=== PATIENT | male | born 1965 | race Caucasian/White ===

== ENCOUNTER → 2018-10-25 09:20 | Outpatient (CLI) | payer SELFPAY ==
[2018-10-25 10:53] LABS: Anion Gap 7 (5-15); BUN 15 mg/dL (7-18); BUN/Creat Ratio 13.5 RATIO (10-20); Calcium,Total 8.6 mg/dL (8.5-10.1); Chloride 106 mmol/L (98-107); Cholesterol 190 mg/dL (200); Creatinine, Serum 1.11 mg/dL (0.70-1.30); EST Glomerular Filtration Rate 74 mL/min (>60); Est Glom Filt Rate - Afr Amer 90 mL/min (>60); Glucose 113 mg/dL (74-106); High Density Lipoprotein 27 mg/dL; Potassium 4.2 mmol/L (3.5-5.1); Sodium Level 138 mmol/L (136-145); Triglycerides 301 mg/dL; Very Low Density Lipoprotein 60 mg/dL (5-40)
[2018-10-25 11:17] LABS: Hemoglobin A1c 6.1 % (4.2-6.3)
== END ==
PROVIDERS: Family Provider Family Medicine; PCP Family Medicine; Visit Provider Family Medicine
DX: Z12.5 Encounter for screening for malignant neoplasm of prostate (principal); E11.9 Type 2 diabetes mellitus without complications
CPT/HCPCS: 36415; 80048; 80061; 83036; 84153; G0103

== ENCOUNTER → 2021-01-08 | Outpatient (CLI) | payer SELFPAY ==
[2021-01-08 09:00] VITALS: BMI 37.1
== END | disposition home or self-care (01) ==
LOC: LABSPEC 10:04
PROVIDERS: PCP Family Medicine; Visit Provider Physician Assistant
DX: L02.11 Cutaneous abscess of neck (principal)
CPT/HCPCS: 87070; 87075; 87077; 87186; 87205

== ENCOUNTER → 2022-12-03 | Outpatient (CLI) | payer BC, MEDICAID, SELFPAY ==
[2022-12-03 13:04] LABS: Hemoglobin A1c 5.6 % (3.8-5.6)
[2022-12-03 13:09] LABS: AST(SGOT) 13 U/L (15-37); Alanine Aminotransfer ALT/SGPT 30 U/L (16-61); Albumin, Serum 3.8 g/dL (3.2-5.0); Alkaline Phosphatase 96 U/L (45-117); Anion Gap 6 (5-15); BUN 17 mg/dL (7-18); Chloride 105 mmol/L (98-107); Cholesterol 200 mg/dL (200); Creatinine, Serum 0.95 mg/dL (0.70-1.30); EST Glomerular Filtration Rate 88 mL/min (>60); Est Glom Filt Rate - Afr Amer 106 mL/min (>60); Globulin 3.7 g/dL (2.2-4.2); Glucose 109 mg/dL (74-106); High Density Lipoprotein 27 mg/dL; PSA,Total - Annual Screen 0.87 ng/mL (0.00-4.00); Potassium 4.5 mmol/L (3.5-5.1); Protein, Total 7.5 g/dL (6.4-8.2); Sodium Level 137 mmol/L (136-145); Thyroid Stim Hormone (TSH) 1.99 uIU/mL (0.358-3.74); Triglycerides 255 mg/dL; Very Low Density Lipoprotein 51 mg/dL (5-40)
[2022-12-03 13:22] LABS: Microalbumin,Random Urine 13.8 mg/L (NO RANGE EST.)
== END | disposition home or self-care (01) ==
LOC: MFPLAB 09:54
PROVIDERS: PCP Family Medicine; Visit Provider Family Medicine
DX: E11.9 Type 2 diabetes mellitus without complications (principal); E78.5 Hyperlipidemia, unspecified; Z12.5 Encounter for screening for malignant neoplasm of prostate
CPT/HCPCS: 36415; 80053; 80061; 82043; 83036; 84153; 84443; G0103

== ENCOUNTER 2024-12-06 16:19 | Outpatient (CLI) | payer OTHER, SELFPAY ==
[2024-12-06 18:13] LABS: Absolute Lymphocyte Count 1.64 X10^3/uL (0.83-4.51); Absolute Neutrophil Count 3.5 X10^3/uL (2.0-7.7); Basophil# 0.04 X10^3/uL; Basophil% 0.7 % (0-1); Eosinophil# 0.14 X10^3/uL; Eosinophils% 2.4 % (0-5); Hematocrit 35.5 % (40-54); Hemoglobin 12.2 g/dL (13.0-16.5); Lymphocyte # 1.64 X10^3/ul (0.83-4.51); Lymphocyte % 28.2 % (19-41); Mean Corp Hgb Conc 34.4 g/dL (32-36); Mean Corpuscular Volume 87.2 fL (80-94); Monocyte# 0.47 X10^3/uL; Monocyte% 8.1 % (0-10); NRBC Flagged by Analyzer 0 % (0-5); Neutrophil % 60.3 % (47-70); Platelet Count 221 K/mm3 (150-450); RBC Distribution Width CV 13.7 % (11.6-14.6); RBC Distribution Width SD 43.5 fl (35.1-43.9); Red Blood Count 4.07 M/mm3 (4.6-6.2); White Blood Count 5.8 K/mm3 (4.4-11.0)
[2024-12-06 18:29] LABS: Hemoglobin A1c 5.8 % (<=5.6)
[2024-12-06 18:45] LABS: ALB/GLOB Ratio 1.6 RATIO (0.9-2.4); AST(SGOT) 17 U/L (<=37); Alanine Aminotransfer ALT/SGPT 14 U/L (<=46); Albumin, Serum 4.1 g/dL (3.5-5.0); Alkaline Phosphatase 95 U/L (40-129); Anion Gap 11 (5-15); BUN 26 mg/dL (4-19); Calcium,Total 8.7 mg/dL (7.6-11.0); Carbon Dioxide 17.6 mmol/L (21.0-32.0); Chloride 112 mmol/L (98-108); Cholesterol 172 mg/dL (<=200); Creatinine, Serum 1.76 mg/dL (0.70-1.20); EST Glomerular Filtration Rate 45 (>60); Globulin 2.6 g/dL (2.2-4.2); Glucose 94 mg/dL (70-99); High Density Lipoprotein 24 mg/dL; Low Density Lipoprotein Calc. 104 mg/dL; Potassium 3.7 mmol/L (3.3-5.1); Protein, Total 6.6 g/dL (5.9-8.4); Sodium Level 141 mmol/L (133-145); Total Bilirubin < 0.15 mg/dL (0.00-1.30); Triglycerides 220 mg/dL; Very Low Density Lipoprotein 44 mg/dL (5-40); Vitamin D,25 Hydroxy 12.5 ng/mL (30-100); cholesterol:hdl ratio screen 7.26
== END 2024-12-06 23:59 | disposition home or self-care (01) ==
LOC: MTLAB 16:22
PROVIDERS: PCP Family Medicine; Referring Provider Family Medicine; Visit Provider Family Medicine
DX: Z00.00 Encounter for general adult medical examination without abnormal findings (principal); E11.9 Type 2 diabetes mellitus without complications; Z12.5 Encounter for screening for malignant neoplasm of prostate; E78.5 Hyperlipidemia, unspecified; R53.83 Other fatigue
CPT/HCPCS: 36415; 80053; 80061; 82306; 83036; 84153; 84443; 85025; G0103

== ENCOUNTER → 2025-01-23 | Outpatient (CLI) | payer OTHER, SELFPAY ==
--- NOTE | 2025-01-23 09:27 | RAD_ITS ---
PROCEDURE: ELBOW MIN 3 VIEWS 01/23/2025 REASON FOR EXAM: SWELLING WITH CELLULITIS TECHNIQUE: ELBOW MIN 4 VIEWS COMPARISON: None FINDINGS: Bones: No fracture or suspicious osseous lesion Joints: Normal alignment. Soft tissues: Diffuse nonspecific soft tissue swelling Other: RAD/Elbow min 3 Views IMPRESSION: No fracture or suspicious osseous lesion Joint spaces well-preserved Nonspecific soft tissue swelling Reading Location: [id number]
--- OUTSIDE RECORDS SUMMARY | 2025-01-23 21:23 | XMS RPT_ITS | CCD ---
Author Organization [facility] Care Team Providers Care Siebel Consultant Name Role Phone Dr. Adal eZe Primary Care Provider Dr. Adal Zee Referring Provider Dr. Wilber Patrick Attending Provider Monroe Rothman MD Primary Care Provider Monroe Rothman MD Attending Provider [phone] Monroe Rothman MD Referring Provider Monroe Rothman Referring Unavailable Monroe Rothman Primary Care Unavailable Monroe Rothman Attending Unavailable Monroe Rothman Referring Unavailable Monreo Rothman Primary Care Unavailable Monroe Rothman Attending Unavailable Allergies Allergy Classification Reported Allergen(s) Allergy Type Date of Onset Reaction(s) Facility (2 sources) Citalopram Drug Allergy 3 Other [facility] Comment on above: headaches (2 sources) Sulfonamides (Antibiotic) Allergy to substance 3 unknown [facility] (1 source) Citalopram Drug Allergy 3 [facility] (1 source) Sulfonamides (Antibiotic) Drug allergy (disorder) 3 [facility] Medications Current Medications Medication Drug Class(es) Dates Sig (Normalized) Sig (Original) [id number] 200 actuat albuterol 0.09 mg/actuat metered dose inhaler (2 sources) beta2-Adrenergic Agonist Start: 01-08-2021 Albuterol Sulfate 90 mcg/actuation HFA aerosol inhaler Active 2 NMA INHALATION EVERY 6 HOURS as needed January 08, 2021 12:00am Start: 01-08-2021 take 1 puff(s) by in halation every six hours Albuterol Sulfate Active 2 PUFF INHALATION EVERY 6 HOURS January 08, 2021 12:00am metFORMIN hydrochloride 500 mg oral tablet (2 sources) Biguanide Start: 01-08-2021 take 1 tablet by mouth twice daily Metformin 500 mg tablet Active 500 mg PO TWICE A DAY January 08, 2021 12:00am sildenafil 25 mg oral tablet (2 sources) Phosphodiesterase 5 Inhibitor Start: 11-17-2022 Sildenafil 25 mg tablet Active 25 mg PO DAILY as needed November 17, 2022 12:00am administer 30 minutes to 4 hours before activity Completed/Discontinued Medications Medication Drug Class(es) Dates Sig (Normalized) Sig (Original) doxycycline monohydrate 100 mg oral capsule (2 sources) Tetracycline-cla ss Drug Start: 01-08-2021 End: 01-22-2021 take 1 capsule by mouth twice daily Doxycycline Monohydrate 100 mg capsule Discontinued 100 mg PO TWICE A DAY January 08, 2021 12:00am January 21, 2021 12:00am January 22, 2021 12:01am Problems Problem Classification Problem Date Documented Da te Episodic/Chronic Other non-traumatic joint disorders (1 source) Effusion, right elbow; Translations: [Effusion, right elbow] Onset: 01-23-2025 Episodic Other skin disorders (2 sources) Epidermoid cyst of skin of neck; Translations: [Epidermal cyst] 11-17-2022 Episodic Other skin disorders (2 sources) Epidermal cyst; Translations: [Sebaceous cyst] 11-17-2022 Episodic Skin and subcutaneous tissue infections (2 sources) Abscess of neck; Translations: [Cutaneous abscess of neck] 01-08-2021 Episodic Spondylosis; intervertebral disc disorders; other back problems (4 sources) Neck pain; Translations: [Cervicalgia] 11-17-2022 Episodic Results Test Name Value Interpretation Reference Range Facility Elbow min 3 Viewson 01-24-20 Elbow min 3 Views [facility] Imaging Services [address] [place] [address] Elbow min 3 Views MR#: [id number] Acct: [id number] Name: NOAH DOMINGUEZ Rep #: [id number] : 1965 M 59 From: Brady Lipscomb MD PCP: Dr. Monroe Rothman MD Status: REG CLI Study: Elbow min 3 Views Date of Exam: 01/23/25 Exam# [id number] Ordering Dr: Monroe Rothman MD PROCEDURE: ELBOW MIN 3 VIEWS 01/23/2025 REASON FOR EXAM: SWELLING WITH CELLULITIS TECHNIQUE: ELBOW MIN 4 VIEWS COMPARISON: None FINDINGS: Bones: No fracture or suspicious osseous lesion Joints: Normal alignment. Soft tissues: Diffuse nonspecific soft tissue swelling Other: RAD/Elbow min 3 Views IMPRESSION: No fracture or suspicious osseous lesion Joint spaces well-preserved Nonspecific soft tissue swelling Reading Location: [id number] CC: Dr. Monroe Rothman MD Grey Tender: Signed Normal [facility] Absolute lymphocyte countOrd ered By: Monroe Rothman on 12-06-2024 Lymphocytes Auto (Unsp spec) [#/Vol] 1.64 10*3/uL 0.83-4.51 [facility] Absolute neutrophil countOrd ered By: Monroe Rothman on 12-06-2024 Neutrophils (Bld) [#/Vol] 3.5 10*3/uL 2.0-7.7 [facility] Anion gap in Serum or Plasma Ordered By: Monroe oRthman on 12-06-2024 Anion gap [Moles/Vol] 11 mmol/L 5-15 [facility] Automated lymphocyte count a s percentage of total leukocytesOrdered By: Monroe Rothman on 12-06-2024 Lymphocytes/100 WBC Auto (Unsp spec) 28.2 % 19-41 [facility] BUN/creatinine ratioOrdered By: Monroe Rothman on 12-06-2024 Urea nitrogen/Creatinine [Mass ratio] 15.0 mg/mg 10-20 [facility] Basophil percentageOrdered B y: Monroe Rothman on 12-06-2024 Basophils/100 WBC (Bld) 0.7 % 0-1 [facility] Bilirubin, totalOrdered By: Monroe Rothman on 12-06-2024 Bilirubin [Mass/Vol] mg/dL 0.00-1.30 [facility] CBC W/Diff, Automatedon 11-24 Absolute Lymph 1.64 X10 3/uL Normal 0.83-4.51 [facility] Comment on above: Order Comment: Order Date: 12/06/24 Order Info: 0184-1 - CBCD Performed By: #### L 100.0100, L501.9910, L500.4050, L501.9520, L501.9985, L500.4100 #### [facility] [address] [place], [address] Absolute Neut 3.5 X10 3/uL Normal 2.0-7.7 [facility] Comment on above: Order Comment: Order Date: 12/06/24 Order Info: 0184- - CBCD Performed By: #### L 100.0100, L501.9910, L500.4050, L501.9520, L501.9985, L500.4100 #### [facility] [address] [place], [address] Basophils/100 WBC (Bld) 0.7 % Normal 0-1 [facility] Comment on above: Order Comment: Order Date: 12/06/24 Order Info: 0184- - CBCD Performed By: #### L 100.0100, L501.9910, L500.4050, L501.9520, L501.9985, L500.4100 #### [facility] [address] [place], [address] Eosinophils/100 WBC (Bld) 2.4 % Normal 0-5 [facility] Comment on above: Order Comment: Order Date: 12/06/24 Order Info: 0184- - CBCD Performed By: #### L 100.0100, L501.9910, L500.4050, L501.9520, L501.9985, L500.4100 #### [facility] [address] [place], [address] Erythrocyte distribution width (RBC) [Ratio] 13.7 % Normal 11.6-14.6 [facility] Comment on above: Order Comment: Order Date: 12/06/24 Order Info: 0184-1 - CBCD Performed By: #### L 100.0100, L501.9910, L500.4050, L501.9520, L501.9985, L500.4100 #### [facility] [address] [place], [address] Hematocrit (Bld) [Volume fraction] 35.5 % Low 40-54 [facility] Comment on above: Order Comment: Order Date: 12/06/24 Order Info: 0184-1 - CBCD Performed By: #### L 100.0100, L501.9910, L500.4050, L501.9520, L501.9985, L500.4100 #### [facility] [address] [facility] [place], [address] Hemoglobin (Bld) [Mass/Vol] 12.2 g/dL Low 13.0-16.5 [facility] Comment on above: Order Comment: Order Date: 12/06/24 Order Info: 0184-1 - CBCD Performed By: #### L 100.0100, L501.9910, L500.4050, L501.9520, L501.9985, L500.4100 #### [facility] [address] [facility] [place], [address] IG% 0.300 Normal 0.0-0.9 [facility] Comment on above: Order Comment: Order Date: 12/06/24 Order Info: 0184-1 - CBCD Result Comment: IG% - Immature Granulocytes (promyelocytes, myelocytes and metamyelocytes) > 1% indicates that a LEFT SHIFT is Present. Performed By: #### L 100.0100, L501.9910, L500.4050, L501.9520, L501.9985, L500.4100 #### [facility] [address] [facility] [place], [address] Lymphocytes/100 WBC (Bld) 28.2 % Normal 19-41 [facility] Comment on above: Order Comment: Order Date: 12/06/24 Order Info: 0184-1 - CBCD Performed By: #### L 100.0100, L501.9910, L500.4050, L501.9520, L501.9985, L500.4100 #### [facility] [address] [place], [address] MCH (RBC) [Entitic mass] 30.0 pg Normal 27.0-32.0 [facility] Comment on above: Order Comment: Order Date: 12/06/24 Order Info: 0184- - CBCD Performed By: #### L 100.0100, L501.9910, L500.4050, L501.9520, L501.9985, L500.4100 #### [facility] [address] [facility] [place], [address] MCHC (RBC) [Mass/Vol] 34.4 g/dL Normal 32-36 [facility] Comment on above: Order Comment: Order Date: 12/06/24 Order Info: 0184- - CBCD Performed By: #### L 100.0100, L501.9910, L500.4050, L501.9520, L501.9985, L500.4100 #### [facility] [address] [facility] [place], [address] MCV (RBC) [Entitic vol] 87.2 fL Normal 80-94 [facility] Comment on above: Order Comment: Order Date: 12/06/24 Order Info: 0184- - CBCD Performed By: #### L 100.0100, L501.9910, L500.4050, L501.9520, L501.9985, L500.4100 #### [facility] [address] [facility] [place], [address] Monocytes/100 WBC (Bld) 8.1 % Normal 0-10 [facility] Comment on above: Order Comment: Order Date: 12/06/24 Order Info: 0184-1 - CBCD Performed By: #### L 100.0100, L501.9910, L500.4050, L501.9520, L501.9985, L500.4100 #### [facility] [address] [place], [address] Neutrophils/100 WBC (Bld) 60.3 % Normal 47-70 [facility] Comment on above: Order Comment: Order Date: 12/06/24 Order Info: 0184-1 - CBCD Performed By: #### L 100.0100, L501.9910, L500.4050, L501.9520, L501.9985, L500.4100 #### [facility] [address] [place], [address] Nucleated RBC (Bld) [#/Vol] 0 10*3/uL Normal 0-5 [facility] Comment on above: Order Comment: Order Date: 12/06/24 Order Info: 0184-1 - CBCD Performed By: #### L 100.0100, L501.9910, L500.4050, L501.9520, L501.9985, L500.4100 #### [facility] [address] [facility] [place], [address] Platelet mean volume (Bld) [Entitic vol] 10.0 fL Normal 6.2-12.0 [facility] Comment on above: Order Comment: Order Date: 12/06/24 Order Info: 0184-1 - CBCD Performed By: #### L 100.0100, L501.9910, L500.4050, L501.9520, L501.9985, L500.4100 #### [facility] [address] [place], [address] Platelets (Bld) [#/Vol] 221 10*3/uL Normal 150-450 [facility] Comment on above: Order Comment: Order Date: 12/06/24 Order Info: 0184-1 - CBCD Performed By: #### L 100.0100, L501.9910, L500.4050, L501.9520, L501.9985, L500.4100 #### [facility] [address] [place], [address] RBC (Bld) [#/Vol] 4.07 10*6/uL Low 4.6-6.2 [facility] Comment on above: Order Comment: Order Date: 12/06/24 Order Info: 0184-1 - CBCD Performed By: #### L 100.0100, L501.9910, L500.4050, L501.9520, L501.9985, L500.4100 #### [facility] [address] [place], [address] RDW SD 43.5 fl Normal 35.1-43.9 [facility] Comment on above: Order Comment: Order Date: 12/06/24 Order Info: 0184-1 - CBCD Performed By: #### L 100.0100, L501.9910, L500.4050, L501.9520, L501.9985, L500.4100 #### [facility] [address] [place], [address] WBC (Bld) [#/Vol] 5.8 10*3/uL Normal 4.4-11.0 [facility] Comment on above: Order Comment: Order Date: 12/06/24 Order Info: 0184-1 - CBCD Performed By: #### L 100.0100, L501.9910, L500.4050, L501.9520, L501.9985, L500.4100 #### [facility] [address] [place], [place], [id number] Calculated very low density lipoprotein (VLDL) cholesterol measurementOrdered By: Monroe Rothman on 12-06-2024 Calculated very low density lipoprotein (VLDL) cholesterol measurement 44 mg/dL High 5-40 [facility] Carbon dioxide, total [Moles /volume] in Central venous bloodOrdered By: Monroe Rothman on 12-06-2024 CO2 [Moles/Vol] 17.6 mmol/L Low 21.0-32.0 [facility] Chloride assayOrdered By: Daniel zeferino Rothman on 12-06-2024 Chloride [Moles/Vol] 112 mmol/L High 98-108 [facility] Comprehensive Metabolic Prof ilon 12-06-2024 Albumin [Mass/Vol] 4.1 g/dL Normal 3.5-5.0 [facility] Comment on above: Order Comment: Order Date: 12/06/24 Order Info: 785- - CMP Order Info: - LIPID Order Info: 3015-09 - TSH Order Info: 2856-07 - PSA Performed By: #### L 100.0100, L501.9910, L500.4050, L501.9520, L501.9985, L500.4100 #### [facility] [address] [place], [place], [address] Albumin/Globulin [Mass ratio] 1.6 {ratio} Normal 0.9-2.4 [facility] Comment on above: Order Comment: Order Date: 12/06/24 Order Info: 785-07 - CMP Order Info: - LIPID Order Info: 3 - TSH Order Info: 2856-07 - PSA Performed By: #### L 100.0100, L501.9910, L500.4050, L501.9520, L501.9985, L500.4100 #### [facility] [address] [place], [place], [id number] ALK PHOS 95 U/L Normal 40-129 [facility] Comment on above: Order Comment: Order Date: 12/06/24 Order Info: 785-07 - CMP Order Info: - LIPID Order Info: 3 - TSH Order Info: 1 - PSA Performed By: #### L 100.0100, L501.9910, L500.4050, L501.9520, L501.9985, L500.4100 #### [facility] [address] [place], [address] ALT [Catalytic activity/Vol] 14 U/L Normal <=46 [facility] Comment on above: Order Comment: Order Date: 12/06/24 Order Info: 86-1 - CMP Order Info: 31296-2 - LIPID Order Info: 3015-3 - TSH Order Info: 2857-1 - PSA Performed By: #### L 100.0100, L501.9910, L500.4050, L501.9520, L501.9985, L500.4100 #### [facility] [address] [place], [address] AST [Catalytic activity/Vol] 17 U/L Normal <=37 [facility] Comment on above: Order Comment: Order Date: 12/06/24 Order Info: 785-1 - CMP Order Info: [id number] - LIPID Order Info: 3 - TSH Order Info: 2857-1 - PSA Performed By: #### L 100.0100, L501.9910, L500.4050, L501.9520, L501.9985, L500.4100 #### [facility] [address] [place], [address] BUN/CRE 15.0 RATIO Normal 10-20 [facility] Comment on above: Order Comment: Order Date: 12/06/24 Order Info: 07-1 - CMP Order Info: 60348-1 - LIPID Order Info: 3 - TSH Order Info: 2857-1 - PSA Performed By: #### L 100.0100, L501.9910, L500.4050, L501.9520, L501.9985, L500.4100 #### [facility] [address] [place], [address] Calcium [Mass/Vol] 8.7 mg/dL Normal 7.6-11.0 [facility] Comment on above: Order Comment: Order Date: 12/06/24 Order Info: 86-1 - CMP Order Info: [id number] - LIPID Order Info: 3015-09 - TSH Order Info: 1 - PSA Performed By: #### L 100.0100, L501.9910, L500.4050, L501.9520, L501.9985, L500.4100 #### [facility] [address] [place], [address] Chloride [Moles/Vol] 112 mmol/L High 98-108 [facility] Comment on above: Order Comment: Order Date: 12/06/24 Order Info: 785-07 - CMP Order Info: 15104-2 - LIPID Order Info: 3015-09 - TSH Order Info: 2856-07 - PSA Performed By: #### L 100.0100, L501.9910, L500.4050, L501.9520, L501.9985, L500.4100 #### [facility] [address] [place], [address] CO2 [Moles/Vol] 17.6 mmol/L Low 21.0-32.0 [facility] Comment on above: Order Comment: Order Date: 12/06/24 Order Info: 785-07 - CMP Order Info: - LIPID Order Info: 3015-09 - TSH Order Info: 2856-07 - PSA Performed By: #### L 100.0100, L501.9910, L500.4050, L501.9520, L501.9985, L500.4100 #### [facility] [address] [place], [address] Creatinine [Mass/Vol] 1.76 mg/dL High 0.70-1.20 [facility] Comment on above: Order Comment: Order Date: 12/06/24 Order Info: 785-07 - CMP Order Info: 67947-4 - LIPID Order Info: 3015-09 - TSH Order Info: 2857-1 - PSA Performed By: #### L 100.0100, L501.9910, L500.4050, L501.9520, L501.9985, L500.4100 #### [facility] [address] [place], [address] GAP 11 Normal 5-15 [facility] Comment on above: Order Comment: Order Date: 12/06/24 Order Info: 785- - CMP Order Info: - LIPID Order Info: 3 - TSH Order Info: 2856-07 - PSA Performed By: #### L 100.0100, L501.9910, L500.4050, L501.9520, L501.9985, L500.4100 #### [facility] [address] [place], [address] GFR/1.73 sq M.predicted among non-blacks MDRD (S/P/Bld) [Vol rate/Area] 45 mL/min/{1.73_m2} Low >60 [facility] Comment on above: Order Comment: Order Date: 12/06/24 Order Info: 785-07 - CMP Order Info: - LIPID Order Info: 3015-09 - TSH Order Info: 2856-07 - PSA Result Comment: mL/m in/1.73m2 CKD-EPI Creatinine Equation (2020) Performed By: #### L 100.0100, L501.9910, L500.4050, L501.9520, L501.9985, L500.4100 #### [facility] [address] [place], [address] Globulin (S) [Mass/Vol] 2.6 g/dL Normal 2.2-4.2 [facility] Comment on above: Order Comment: Order Date: 12/06/24 Order Info: 785-07 - CMP Order Info: - LIPID Order Info: 3015-09 - TSH Order Info: 2856-07 - PSA Performed By: #### L 100.0100, L501.9910, L500.4050, L501.9520, L501.9985, L500.4100 #### [facility] [address] [place], [address] Glucose [Mass/Vol] 94 mg/dL Normal 70-99 [facility] Comment on above: Order Comment: Order Date: 12/06/24 Order Info: 0786-1 - CMP Order Info: 64035-5 - LIPID Order Info: 3016-3 - TSH Order Info: 2857-1 - PSA Performed By: #### L 100.0100, L501.9910, L500.4050, L501.9520, L501.9985, L500.4100 #### [facility] [address] [place], [address] Potassium [Moles/Vol] 3.7 mmol/L Normal 3.3-5.1 [facility] Comment on above: Order Comment: Order Date: 12/06/24 Order Info: 785-1 - CMP Order Info: [id number] - LIPID Order Info: 3 - TSH Order Info: 2857-1 - PSA Performed By: #### L 100.0100, L501.9910, L500.4050, L501.9520, L501.9985, L500.4100 #### [facility] [address] [place], [address] Sodium [Moles/Vol] 141 mmol/L Normal 133-145 [facility] Comment on above: Order Comment: Order Date: 12/06/24 Order Info: 07-1 - CMP Order Info: [id number] - LIPID Order Info: 301-3 - TSH Order Info: 2857-1 - PSA Performed By: #### L 100.0100, L501.9910, L500.4050, L501.9520, L501.9985, L500.4100 #### [facility] [address] [place], [address] T BILI < 0.15 Normal 0.00-1.30 [facility] Comment on above: Order Comment: Order Date: 12/06/24 Order Info: 0786-1 - CMP Order Info: [id number] - LIPID Order Info: 3015-09 - TSH Order Info: 1 - PSA Performed By: #### L 100.0100, L501.9910, L500.4050, L501.9520, L501.9985, L500.4100 #### [facility] [address] [place], [address] T PROT 6.6 g/dL Normal 5.9-8.4 [facility] Comment on above: Order Comment: Order Date: 12/06/24 Order Info: 0786 - CMP Order Info: - LIPID Order Info: [id number] - TSH Order Info: 2856-07 - PSA Performed By: #### L 100.0100, L501.9910, L500.4050, L501.9520, L501.9985, L500.4100 #### [facility] [address] [place], [place], [address] Urea nitrogen [Mass/Vol] 26 mg/dL High 4-19 [facility] Comment on above: Order Comment: Order Date: 12/06/24 Order Info: 0786-1 - CMP Order Info: [id number] - LIPID Order Info: 3015-09 - TSH Order Info: 2856-07 - PSA Performed By: #### L 100.0100, L501.9910, L500.4050, L501.9520, L501.9985, L500.4100 #### [facility] [address] [place], [address] Eosinophil percentageOrdered By: Monroe Rothman on 12-06-2024 Eosinophils/100 WBC (Bld) 2.4 % 0-5 [facility] Erythrocyte distribution wid th ratioOrdered By: Monroe Rothamn on 12-06-2024 Erythrocyte distribution width (RBC) [Ratio] 13.7 % 11.6-14.6 [facility] Erythrocyte distribution wid th standard deviationOrdered By: Monroe Rothman on 12-06-2024 Erythrocyte distribution width (RBC) [Ratio] 43.5 fl 35.1-43.9 [facility] Glomerular filtration rate ( GFR) estimation/1.73 sq m using serum, plasma, or whole bOrdered By: Monroe Rothman on 12-06-2024 GFR/1.73 sq M.predicted among non-blacks MDRD (S/P/Bld) [Vol rate/Area] 45 mL/min/{1.73_m2} Low >60 [facility] Comment on above: mL/min/1.73m2 CKD-EP I Creatinine Equation (2020) Hematocrit Auto (Bld) [Volum e fraction]Ordered By: Monroe Rothman on 12-06-2024 Hematocrit (Bld) [Volume fraction] 35.5 % Low 40-54 [facility] Hemoglobin A1con 12-06-2024 HbA1c (Bld) [Mass fraction] 5.8 % High <=5.6 [facility] Comment on above: Order Comment: Order Date: 12/06/24 Order Info: [id number] - A1C Result Comment: Norm al < 5.7 % Prediabetic 5.7 - 6.4 % Diabetic >or= 6.5 % Please note range changes. Performed By: #### L 100.0100, L501.9910, L500.4050, L501.9520, L501.9985, L500.4100 #### [facility] [place], [address] Hemoglobin A1c percentageOrd ered By: Monroe Rothman on 12-06-2024 HbA1c (Bld) [Mass fraction] 5.8 % High <5.7 [facility] Comment on above: Normal < 5.7 % Predi abetic 5.7 - 6.4 % Diabetic >or= 6.5 % Please note range changes. Hemoglobin measurementOrdere d By: Monroe Rothman on 12-06-2024 Hemoglobin (Bld) [Mass/Vol] 12.2 g/dL Low 13.0-16.5 [facility] Immature granulocytes/100 WB C Auto (Bld)Ordered By: Monroe Rothman on 12-06-2024 Immature granulocytes/100 WBC (Bld) 0.300 % 0.0-0.9 [facility] Comment on above: IG% - Immature Granu locytes (promyelocytes, myelocytes and metamyelocytes) > 1% indicates that a LEFT SHIFT is Present. LDL calc ser/plasOrdered By: Monroe Rothman on 12-06-2024 Cholesterol in LDL [Mass/Vol] 104 mg/dL [facility] Comment on above: Fsajlibyug=680-457 m g/dL & Higher Gesn=381 mg/dL or greater Laboratory - Chemistry and C hemistry - challengeOrdered By: Monroe Rothman on 12-06-2024 AST [Catalytic activity/Vol] 17 U/L <38 [facility] Lipid Profileon 12-06-2024 CHOL:HDL 7.26 Normal [facility] Comment on above: Order Comment: Order Date: 12/06/24 Order Info: 0786-1 - CMP Order Info: [id number] - LIPID Order Info: 3016-3 - TSH Order Info: 2857-1 - PSA Performed By: #### L 100.0100, L501.9910, L500.4050, L501.9520, L501.9985, L500.4100 #### [facility] [address] [place], [address] Cholesterol [Mass/Vol] 172 mg/dL Normal <=200 [facility] Comment on above: Order Comment: Order Date: 12/06/24 Order Info: 0786-1 - CMP Order Info: [id number] - LIPID Order Info: 3016-3 - TSH Order Info: 2857-1 - PSA Result Comment: Chol esterol level, Desirable <200 mg/dL Borderline high cholesterol 200-239 mg/dL High cholesterol >=240 mg/dL Recommendations of the NCEP Adult Treatment Panel for the following risk-cutoff thresholds for the [place] population. Performed By: #### L 100.0100, L501.9910, L500.4050, L501.9520, L501.9985, L500.4100 #### [facility] [address] [place], [address] Cholesterol in HDL [Mass/Vol] 24 mg/dL Low [facility] Comment on above: Order Comment: Order Date: 12/06/24 Order Info: 0786- - CMP Order Info: [id number] - LIPID Order Info: 3015-09 - TSH Order Info: 2856-07 - PSA Result Comment: Lis onal Cholesterol Education Program (NCEP) guidelines: <40 mg/dL: Low HDL-cholesterol (major risk factor for CHD) >= 60 mg/dL: High HDL-cholesterol (negative risk factor for CHD) HDL-cholesterol is affected by a number of factors, e.g. smoking, exercise, hormones, sex and age. Performed By: #### L 100.0100, L501.9910, L500.4050, L501.9520, L501.9985, L500.4100 #### [facility] [address] [place], [address] Cholesterol in LDL [Mass/Vol] 104 mg/dL Normal [facility] Comment on above: Order Comment: Order Date: 12/06/24 Order Info: 785-07 - CMP Order Info: - LIPID Order Info: 3015-09 - TSH Order Info: 2856-07 - PSA Result Comment: Bord podgsb=220-918 mg/dL Higher Kpiy=692 mg/dL or greater Performed By: #### L 100.0100, L501.9910, L500.4050, L501.9520, L501.9985, L500.4100 #### [facility] [address] [place], [address] Cholesterol in VLDL [Mass/Vol] 44 mg/dL High 5-40 [facility] Comment on above: Order Comment: Order Date: 12/06/24 Order Info: 07 - CMP Order Info: [id number] - LIPID Order Info: [id number] - TSH Order Info: [id number] - PSA Performed By: #### L 100.0100, L501.9910, L500.4050, L501.9520, L501.9985, L500.4100 #### [facility] [address] [place], [address] Triglyceride [Mass/Vol] 220 mg/dL High [facility] Comment on above: Order Comment: Order Date: 12/06/24 Order Info: [id number] - CMP Order Info: [id number] - LIPID Order Info: [id number] - TSH Order Info: [id number] - PSA Result Comment: The drugs N-Acetylcysteine and Metamizole may falsely depress this assay. Normal range: <150 mg/dL Borderline High: 150-199 mg/dL High: 200-499 mg/dL Very High: >500 mg/dL Performed By: #### L 100.0100, L501.9910, L500.4050, L501.9520, L501.9985, L500.4100 #### [facility] [address] [place], [address] MCV (mean corpuscular volume ) determinationOrdered By: Monroe Rothman on 12-06-2024 MCV (RBC) [Entitic vol] 87.2 fL 80-94 [facility] Mean corpuscular hemoglobin (MCH) determinationOrdered By: Monroe Rothman on 12-06-2024 MCH (RBC) [Entitic mass] 30.0 pg 27.0-32.0 [facility] Mean corpuscular hemoglobin concentration (MCHC) determinationOrdered By: Monroe Rothman on 12-06-2024 MCHC (RBC) [Mass/Vol] 34.4 g/dL 32-36 [facility] Mean platelet volume determi nationOrdered By: Monroe Rothman on 12-06-2024 Platelet mean volume (Bld) [Entitic vol] 10.0 fL 6.2-12.0 [facility] Monocyte percentageOrdered B y: Monroe Rothman on 12-06-2024 Monocytes/100 WBC (Bld) 8.1 % 0-10 [facility] Neutrophil percentageOrdered By: Monroe Rothman on 12-06-2024 Neutrophils/100 WBC (Bld) 60.3 % 47-70 [facility] Nucleated red blood cell per centageOrdered By: Monroe Rothman on 12-06-2024 Nucleated RBC/100 WBC (Bld) [Ratio] 0 % 0-5 [facility] PSA,Total - Annual Screenon 12-06-2024 PSA,TOT SCREEN 0.60 ng/mL Normal 0.02-4.00 [facility] Comment on above: Order Comment: Order Date: 12/06/24 Order Info: [id number] - CMP Order Info: [id number] - LIPID Order Info: [id number] - TSH Order Info: [id number] - PSA Result Comment: This test was performed using the [employer] tPSA method. Measured values of a patient??sample can vary depending on the testing procedure used. PSA values determined on patient samples by different testing procedures cannot be used interchangeably. If there is a change in PSA assays while monitoring therapy, sequential testing should be performed to confirm baseline values. Performed By: #### L 100.0100, L501.9910, L500.4050, L501.9520, L501.9985, L500.4100 #### [facility] [place], [address] Platelet countOrdered By: Daniel Rothman on 12-06-2024 Platelets (Bld) [#/Vol] 221 10*3/uL 150-450 [facility] Potassium measurement (mass/ volume)Ordered By: Monroe Rothman on 12-06-2024 Potassium (Unsp spec) [Mass/Vol] 3.7 mmol/L 3.3-5.1 [facility] RBC Auto (Bld) [#/Vol]Ordere d By: Monroe Rothman on 12-06-2024 RBC (Bld) [#/Vol] 4.07 10*6/uL Low 4.6-6.2 [facility] Screening total cholesterol/ high density lipoprotein (HDL) cholesterol ratioOrdered By: Monroe Rothman on 12-06-2024 Cholesterol.total/Cholest tanner in HDL [Mass ratio] 7.26 {ratio} [facility] Serum creatinine measurement (mass/volume)Ordered By: Monroe Rothman on 12-06-2024 Creatinine [Mass/Vol] 1.76 mg/dL High 0.70-1.20 [facility] Serum globulin measurementOr dered By: Monroe Rothman on 12-06-2024 Globulin (S) [Mass/Vol] 2.6 g/dL 2.2-4.2 [facility] Serum glucose measurement (m ass/volume)Ordered By: Monroe Rothman on 12-06-2024 Glucose [Mass/Vol] 94 mg/dL 70-99 [facility] Serum or plasma alanine stephens otransferase (ALT) measurementOrdered By: Monroe Rothman on 12-06-2024 ALT [Catalytic activity/Vol] 14 U/L <47 [facility] Serum or plasma albumin milagros urement (mass/volume)Ordered By: Monroe Rothman on 12-06-2024 Albumin [Mass/Vol] 4.1 g/dL 3.5-5.0 [facility] Serum or plasma albumin/glob ulin mass ratioOrdered By: Monroe Rothman on 12-06-2024 Albumin/Globulin [Mass ratio] 1.6 {ratio} 0.9-2.4 [facility] Serum or plasma alkaline melissa sphatase measurementOrdered By: Monroe Rothman on 12-06-2024 ALP [Catalytic activity/Vol] 95 U/L 40-129 [facility] Serum or plasma calcium milagros urement (mass/volume)Ordered By: Monroe Rothman on 12-06-2024 Calcium [Mass/Vol] 8.7 mg/dL 7.6-11.0 [facility] Serum or plasma cholesterol in HDL measurement (mass/volume)Ordered By: Monroe Rothman on 12-06-2024 Cholesterol in HDL [Mass/Vol] 24 mg/dL Low >40 [facility] Comment on above: National Cholesterol Education Program (NCEP) guidelines:<40 mg/dL: Low HDL-cholesterol (major risk factor for CHD)>= 60 mg/dL: High HDL-cholesterol (negative risk factor for CHD)HDL-cholesterol is affected by a number of factors, e.g. smoking, exercise, hormones, sex and age. Serum or plasma cholesterol measurement (mass/volume)Ordered By: Monroe Rothman on 12-06-2024 Cholesterol [Mass/Vol] 172 mg/dL <201 [facility] Comment on above: Cholesterol level, D esirable <200 mg/dLBorderline high cholesterol 200-239 mg/dLHigh cholesterol >=240 mg/dLRecommendations of the NCEP Adult Treatment Panel for the following risk-cutoff thresholds for the [place] population. Serum or plasma urea nitroge n measurement (mass/volume)Ordered By: Monroe Rothman on 12-06-2024 Urea nitrogen [Mass/Vol] 26 mg/dL High 4-19 [facility] Sodium levelOrdered By: Kristen Butterfieldke on 12-06-2024 Sodium [Moles/Vol] 141 mmol/L 133-145 [facility] TSH DL <= 0.005 mIU/L QnOrde red By: Monroe Rothman on 12-06-2024 TSH Qn 2.680 uIU/mL 0.300-4.200 [facility] Thyroid Stim Hormone (TSH)on 12-06-2024 TSH 2.680 uIU/mL Normal 0.300-4.200 [facility] Comment on above: Order Comment: Order Date: 12/06/24 Order Info: [id number] - CMP Order Info: [id number] - LIPID Order Info: [id number] - TSH Order Info: [id number] - PSA Performed By: #### L 100.0100, L501.9910, L500.4050, L501.9520, L501.9985, L500.4100 #### [facility] [address] [place], [place], [id number] Total proteinOrdered By: Sherrill Butterfieldke on 12-06-2024 Protein [Mass/Vol] 6.6 g/dL 5.9-8.4 [facility] Triglycerides measurementOrd ered By: Monroe Lorna on 12-06-2024 Triglyceride [Mass/Vol] 220 mg/dL High <199 [facility] Comment on above: The drugs N-Acetylcy steine and Metamizole may falsely depress this assay. Normal range: <150 mg/dLBorderline High: 150-199 mg/dLHigh: 200-499 mg/dLVery High: >500 mg/dL Vitamin D,25 Hydroxyon 12-06 Vitamin D 25-OH 12.5 ng/mL Low 30-100 [facility] Comment on above: Order Comment: Order Date: 12/06/24 Order Info: [id number] - CMP Order Info: [id number] - LIPID Order Info: [id number] - TSH Order Info: [id number] - PSA Result Comment: Ilana min D Status Deficiency: <20 ng/mL (50nmol/L) Insufficiency: 20-30 ng/mL (50-75 nmol/L) Sufficiency: 30-100 ng/mL (75-250 nmol/L) Toxicity: >100 ng/mL (>250 nmol/L) Performed By: #### L 506.1001 #### [facility] [address] [place], [address] White blood cell (WBC) count Ordered By: Monroe Rothman on 12-06-2024 WBC (Bld) [#/Vol] 5.8 10*3/uL 4.4-11.0 [facility] Basophil percentageOrdered B y: Rosa Steinberg on 12-03-2022 Bilirubin [Mass/Vol] 0.40 mg/dL 0.20-1.00 [facility] Comment on above: For patients on eltr ombopag therapy, use of Dimension Berry TBIL is not recommended. Chloride [Moles/Vol] 105 mmol/L 98-107 [facility] Cholesterol [Mass/Vol] 200 mg/dL <200 [facility] Comment on above: <200 mg/dL Desirable 200-240 mg/dL Borderline >240 mg/dL High Risk Glucose [Mass/Vol] 109 mg/dL 74-106 [facility] Comment on above: Fasting Glucose resu lt from 100 to 125 mg/dL suggests IMPAIRED HOMEOSTASIS per A.D.A. criteria. Potassium [Moles/Vol] 4.5 mmol/L 3.5-5.1 [facility] Protein [Mass/Vol] 7.5 g/dL 6.4-8.2 [facility] Sodium [Moles/Vol] 137 mmol/L 136-145 [facility] Triglyceride [Mass/Vol] 255 mg/dL <199 [facility] Comment on above: The drugs N-Acetylcy steine and Metamizole may falsely depress this assay.Serum Triglycerides Reference Interval Normal <150 mg/dL Borderline high 150 - 199 mg/dL High 200 - 499 mg/dL Very High > or = 500 mg/dL Laboratory - Chemistry and C hemistry - challengeOrdered By: Rosa Steinberg on 12-03-2022 ALP [Catalytic activity/Vol] 96 U/L 45-117 [facility] ALT [Catalytic activity/Vol] 30 U/L 16-61 [facility] CO2 [Moles/Vol] 26.0 mmol/L 21.0-32.0 [facility] Globulin (S) [Mass/Vol] 3.7 g/dL 2.2-4.2 [facility] Urea nitrogen/Creatinine [Mass ratio] 18.0 mg/mg 10-20 [facility] No Panel InformationOrdered By: Rosa Steinberg on 12-03-2022 Estimated GFR (MDRD) Amer 106 mL/min >60 [facility] Comment on above: GFR Calc Estimated GFR (MDRD) Non-Af Amer 88 mL/min >60 [facility] Comment on above: Non- GFR Calc Prostate Specific Antigen Screen 0.87 ng/mL 0.00-4.00 [facility] Comment on above: This test was perfor med using the TPSA assay method for the[employer] chemistry system. Values obtained with differentassay methods cannot be used interchangably.When changing PSA assays in the course of monitoring apatient, additional sequential testing should be carriedout to confirm baseline values. Thyroid Stimulating Hormone (TSH) 1.99 uIU/mL 0.358-3.74 [facility] Serum or plasma albumin milagros urement (mass/volume)Ordered By: Rosa Steinberg on 12-03-2022 Albumin [Mass/Vol] 3.8 g/dL 3.2-5.0 [facility] Serum or plasma albumin/glob ulin mass ratioOrdered By: Rosa Steinberg on 12-03-2022 Albumin/Globulin [Mass ratio] 1.0 {ratio} 0.9-2.4 [facility] Serum or plasma calcium milagros urement (mass/volume)Ordered By: Rosa Steinberg on 12-03-2022 Calcium [Mass/Vol] 9.0 mg/dL 8.5-10.1 [facility] Serum or plasma cholesterol in HDL measurement (mass/volume)Ordered By: Rosa Steinberg on 12-03-2022 Cholesterol in HDL [Mass/Vol] 27 mg/dL >40 [facility] Comment on above: The drugs N-Acetylcy steine and Metamizole may falsely depress this assay. Reference Range HDL <40 mg/dL Low HDL Cholesterol HDL >or= 60 mg/dL High HDL Cholesterol Serum or plasma cholesterol in VLDL measurement (mass/volume)Ordered By: Rosa Steinberg on 12-03-2022 Cholesterol in VLDL [Mass/Vol] 51 mg/dL 5-40 [facility] Serum or plasma creatinine m easurement (mass/volume)Ordered By: Rosa Steinberg on 12-03-2022 Creatinine [Mass/Vol] 0.95 mg/dL 0.70-1.30 [facility] Comment on above: The validity of the calculated GFR & GFRAA in patients over 70 years has not been determined. Clinical correlation is essential. Serum or plasma low density lipoprotein (LDL) cholesterol measurement (mass/volume)Ordered By: Rosa Steinberg on 12-03-2022 Cholesterol in LDL [Mass/Vol] 122 mg/dL 0-130 [facility] Serum or plasma urea nitroge n measurement (mass/volume)Ordered By: Rosa Steinberg on 12-03-2022 Urea nitrogen [Mass/Vol] 17 mg/dL 7-18 [facility] Thin prep Papanicolaou smear with manual screeningOrdered By: Rosa Steinberg on 12-03-2022 Thin prep Papanicolaou smear with manual screening 13 U/L 15-37 [facility] Thin prep Papanicolaou smear with manual screening 6 5-15 [facility] Thin prep Papanicolaou smear with manual screening 13.8 mg/L NO RANGE EST. [facility] Whole blood hemoglobin A1c/t otal hemoglobin ratio (mass fraction)Ordered By: Rosa Steinberg on 12-03-2022 HbA1c (Bld) [Mass fraction] 5.6 % 3.8-5.6 [facility] Comment on above: Normal < 5.7 % Predi abetic 5.7 - 6.4 % Diabetic >or= 6.5 % Please note range changes. Vital Signs Date Time Vital Sign Value Performing Clinician Faci lity 11-17-2022 07:59-0400 Body height 182.[address] Adal Galvan OLS Work Phone: [facility] 11-17-2022 07:59-0400 Body mass index (BMI) [Ratio] 34.8 kg/m2 Dr. Adal SMITH Work Phone: [facility] 11-17-2022 07:59-0400 Body temperature 96 [degF] Dr. Adal SMITH Work Phone: [facility] 11-17-2022 07:59-0400 Body weight 116.[address] Adal SMITH Work Phone: [facility] 11-17-2022 07:59-0400 Diastolic blood pressure 81 mm[Hg] Dr. Adal SMITH Work Phone: [facility] 11-17-2022 07:59-0400 Heart rate 60 /min Dr. Adal SMITH Work Phone: [facility] 11-17-2022 07:59-0400 Respiratory rate 17 /min Dr. Adal SMITH Work Phone: [facility] 11-17-2022 07:59-0400 SaO2% (BldA) [Mass fraction] 95 % Dr. Adal SMITH Work Phone: [facility] 11-17-2022 07:59-0400 Systolic blood pressure 147 mm[Hg] Dr. Adal SMITH Work Phone: [facility] Encounters Encounter Date Encounter Type Care Provider Facility Start: [facility] Start: 12-09-2024 Encounter for genera l adult medical examination without abnormal findings [facility] Start: 12-06-2024 End: 12-06-2024 ambulatory Monroe Rothman MD Work Phone: [facility] Work Phone: Start: 12-06-2024 End: 12-06-[address] Monroe Rothman MD [facility] [place] Work Phone: Start: 12-06-2024 End: 12-06-2024 ambulatory Monroe Rothman Facility:[facility] Start: 12-03-2022 End: 12-03-[address] Adal SMITH Work Phone: [facility] Work Phone: Start: 12-03-2022 End: 12-03-[address] Adal SMITH Work Phone: [facility] Start: 11-19-2022 End: 11-19-[address] Adal SMITH Work Phone: [facility] Start: 11-17-2022 End: 11-17-[address] Adal SMITH Work Phone: [facility] Procedures Date Procedure Procedure Detail Performing Clinician Start: 12-06-2024 Prostate specific an tigen measurement Monroe Rothman MD Work Phone: Comment on above: This test was perfor med using the [employer] tPSA method. Measured values of a patient sample can vary depending on the testing procedure used. PSA values determined on patient samples by different testing procedures cannot be used interchangeably. If there is a change in PSA assays while monitoring therapy, sequential testing should be performed to confirm baseline values. Start: 12-06-2024 Vitamin D, 25-hydrox y measurement Monroe Rothman MD Work Phone: Comment on above: Vitamin D StatusDefi ciency: <20 ng/mL (50nmol/L)Insufficiency: 20-30 ng/mL (50-75 nmol/L)Sufficiency: 30-100 ng/mL (75-250 nmol/L)Toxicity: >100 ng/mL (>250 nmol/L) Payers Date Payer Category Payer Self-pay [id number] 2024 Unknown [id number] Unknown ANTHEM [id number] Unknown [id number] Unknown [id number] Social History Date Type Detail Facility Start: 11-19-2022 Tobacco smoking stat [facility] Unknown if ever smoked [facility] Start: 1965 Sex Assigned At Male [facility] Start: 11[facility]19-[facility] Evaluation note Note Date & Type Note Facility Evaluation note Diagnosis Onset Date Epidermal cyst of neck acute Neck pain acute Epidermal cyst of neck acute Neck pain acute [facility] Work Phone: Evaluation note Note Date & Type Note Facility Evaluation note No assessment information availa ble [facility] Work Phone: Reason for referral (narrative) Note Date & Type Note Facility Reason for referral (narrative) No reason for referral information available [facility] Work Phone: Chief Complaint and Reason for Visit Chief Complaint CYST ON NECK CYST ON NECK Reason for Visit Epidermal cyst of ne ck Neck pain Epidermal cyst of neck Neck pain Chief Complaint Admit Date EORDER December 06, 2024 4:19p m Summary Purpose Family History No Family History Records Found Advance Directives No Advanced Directives Records Found Additional Source Comments Care Teams (unrecognized sec tion and content) Team Status: Active Member Role Status Dates Dr. Adal Mora MD Family Provider Active Rosa Steinberg DO Primary Care Provider Active Team Status: Inactive Member Role Status Dates Dr. Adal SMITH MD Primary Care Provider, Referri Provider Active Dr. Wilber Patrick MD Attending Provider Active Team Status: Inactive Member Role Status Dates Rosa Steinberg DO Primary Care Provider, Attending Provider Active Team Status: Active Member Role Status Dates Dr. Adal Mora MD Family Provider Active Monroe Rothman MD Primary Care Provider Active Team Status: Inactive Member Role Status Dates Monroe Rothman MD Primary Care Provider Active St art: December 06, 2024 End: December 06, 2024 Monroe Rothman MD Attending Provider Active Start : December 06, 2024 End: December 06, 2024 Monroe Rothman MD Referring Provider Active Start : December 06, 2024 End: December 06, 2024 Goals (unrecognized section and content) Goals may be documented in a n alternate sectionGoals may be documented in an alternate section (unrecognized sect ion and content) No Status Records Found INFORMATION SOURCE (unrecogn ized section and content) DATE CREATED AUTHOR 01/23/2025 [facility] FOR RECORDS PERTAINING TO PATIENTS WHO ARE OR HAVE BEEN ENROLLED IN A CHEMICAL DEPENDENCY/SUBSTANCEABUSE PROGRAM, SOME INFORMATION MAY BE OMITTED. This clinical summary was aggregated from multiple sources. Caution should be exercised in using it in the provision of clinical care. This summary normalizes information from multiple sources, and as a consequence, information in this document may materially change the coding, format and clinical context of patient data. In addition, data may be omitted in some cases. CLINICAL DECISIONS SHOULD BE BASED ON THE PRIMARY CLINICAL RECORDS. [employer] provides no warranty or guarantee of the accuracy or completeness of information in this document.
== END | disposition home or self-care (01) ==
LOC: MTRAD 09:27
PROVIDERS: PCP Family Medicine; Referring Provider Family Medicine; Visit Provider Family Medicine
DX: M25.421 Effusion, right elbow (principal)
CPT/HCPCS: 73080

== ENCOUNTER 2025-05-04 12:45 | Inpatient (IN) | payer OTHER, SELFPAY ==
[2025-05-04] VITALS (36 sets, daily range): BP systolic 106–215; BP diastolic 41–112; PULSE 67–98; RESP 13–38; TEMP 34.2–37.5; O2SAT 89–100; BMI 34.0; BMI 33.7
[2025-05-04 13:15] LABS: Base Excess < -30 mmol/L (-2 to +2); FI02 3.0; PO2 148 mmHG (75-100); SITE R Brach; SO2 97 % (95-99); Time Given 13:13:02
--- NOTE | 2025-05-04 13:15 | EDS_ITS ---
HPI History of Present Illness Chief Complaint: Shortness of Breath Informant: patient and spouse/S.O. Onset/Context/Timing Onset: Today and Yesterday Context: gradual Timing: Continuous Quality: Positive for Wheezing Current Severity: Severe Maximum Severity: Severe Worsened by: Nothing Relieved by: Nothing Associated Symptoms cough and white sputum Chest Pain: Positive for None Narrative Narrative: 60-year-old male history of diabetes and asthma. Had flulike illness a week ago was not evaluated. Saw his primary care physician's office yesterday nurse practitioner was placed on a Z-Christopher albuterol inhaler and prednisone which she picked up today. He is having worse shortness of breath. Denies chest pain. No hemoptysis. No cardiac history no history of DVT or PE risk factors. No leg pain or swelling. PE Risk Factors: Negative for Cancer, OCP + Smoking + > 35, Prior DVT or PE, Recent immobilization, Recent surgery or Recent travel Prior similar symptoms: No Recent Illness/Hospitalization: No PFSH PFSH Medical History Asthma Diabetes Home Medications ?Medication ?Instructions ?Recorded ?Last Taken ?Type albuterol sulfate 90 mcg/actuation 2 puff inhalation Q 6H PRN 01/08/21 Unknown History aerosol inhaler metformin 500 mg tablet 500 mg PO BID 01/08/21 Unkno wn History sildenafil 25 mg tablet 25 mg PO DAILY PRN 11/17/22 Unknown History Allergy/AdvReac Type Severity Reaction Status Date / Time citalopram Allergy Mild Other Verified 11/19/22 14:31 Sulfa (Sulfonamide Allergy Unknown unknown Verified 11/19/22 14:31 Antibiotics) Family History Grandfather Diabetes Surgical History History of umbilical hernia repair Social History Smoking Status: Heavy Smoker (>10/day) alcohol intake: current alcohol intake frequency: a few times a week ROS ROS ED ROS Narrative Shortness of breath. Cough white sputum. No chest pain. No fever. Constitutional Constitutional ED: Denies chills or fever(s) Eyes Eyes: Denies blurry vision Cardiovascular Cardiovascular: Denies chest pain Respiratory/Chest Respiratory/Chest: Reports cough, dyspnea and sputum Gastrointestinal Gastrointestinal: Denies abdominal pain Genitourinary Genitourinary ED: Denies dysuria or hematuria Musculoskeletal Musculoskeletal: Denies arthralgias Integumentary Denies abscess or Abrasions Neurologic Neurologic: Denies headache(s) Psychiatric Psychiatric: Denies anxiety Endocrine Endocrinology: Denies cold intolerance Hematologic/Lymphatic Hematologic/Lymphatic: Denies easy bleeding, easy bruising or lymphadenopathy Allergic/Immunologic Allergic/Immunologic ED: Denies mouth swelling, tongue swelling or urticaria EXAM Physical Exam Narrative Exam Narrative: 60-year-old male sitting upright in bed tripoding consistent with significant respiratory distress. However his pulse ox is 100% on 6 L. H EENT exam pupils are reactive light moist membranes. Neck nontender no JVD. No lymphadenopathy. Lungs are on expiratory phase bilaterally. No rales or rhonchi. Currently I do not hear any wheezing. Equal symmetrical. Heart rate about 100. No murmur. Increased respiratory rate. Abdomen soft nontender. Chest wall ribs nontender no crepitance back nontender. Moving all 4 extremities. 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 Normal dorsi plantarflexion. Calves nontender no edema no cords. Neurolo gically he is awake alert. Answer questions following commands. Const Vital Signs: 05/04/25 12:46 05/04/25 12:57 05/04/25 12:58 Temperature 99.5 F H 99.5 F H Temperature Source Oral Oral Pulse Rate 98 98 Respiratory Rate 38 H 38 H Respiratory Effort Short of Breath Labored Respiratory Depth Deep Respiratory Pattern Tachypnea Blood Pressure 215/63 H 215/63 H Blood Pressure Mean 113 113 Pulse Ox 100 100 Oxygen Delivery Method Nasal Cannula Nasal Cannula Nasal Cannula Oxygen Flow Rate (L/min) 6 6 6 05/04/25 13:06 05/04/25 13:13 05/04/25 13:21 Temperature Temperature Source Pulse Rate 74 Respiratory Rate 30 H Respiratory Effort Short of Breath Labored Respiratory Depth Respiratory Pattern Tachypnea Blood Pressure Blood Pressure Mean Pulse Ox Oxygen Delivery Method Room Air Oxygen Flow Rate (L/min) 05/04/25 13:57 Temperature 99.2 F H Temperature Source Axillary Pulse Rate 75 Respiratory Rate 22 H Respiratory Effort Respiratory Depth Respiratory Pattern Blood Pressure 160/70 H Blood Pressure Mean 100 Pulse Ox 100 Oxygen Delivery Method Nasal Cannula Oxygen Flow Rate (L/min) 3 MDM MDM MDM Narrative Medical decision making narrative: 60-year-old diabetic male with asthma blood sugar 111. He is in respiratory di stress to be treated with DuoNeb and albuterol aerosols unturned Solu-Medrol and undergo cardiac/respiratory workup. He will need to be admitted. We have already obtained a blood gas his pH is 6.9 with a pCO2 is 7.2. And pO2 148. His sats 97% on that. We attempted BiPAP patient was unable to tolerate ripped the mask off. He has already been given about albuterol and DuoNeb aerosols and IV Solu-Medrol. With his to be 36,000 white count this may be underlying sepsis he was given IV Zosyn. Patient has acute renal failure. Leukocytosis will look for infection. With blood and urine cultures. His initial chest x-ray is no obvious pneumonia. Patient's been intubated. I will be admitted the ICU. He is getting IV fluids. First 1 L then will be given a second. History & Record Review Discussion w/independent historian: Patient and Family Additional record(s) reviewed:: Prior inpatient record, Prior outpatient record, Prior ED visit and Prior labs Lab Data Attestation: I reviewed the patient's lab results. Lab results narrative: CBC shows a white count of 36.1. H&H 13 and 39. Platelets 304. Electrolytes show sodium 131. Gap of 29. With a carbon dioxide of 2.9. BUN and creatinine are 97 and 5.48 Consistent with acute kidney failure. Glucose 150. ABG shows a pH of 6.93 with a pCO2 of 7. pO2 of 148. A bicarb of 1.5. Consistent with a metabolic acidosis. And a respiratory alkalosis. Labs: Laboratory Results - last 24 hr 05/04/25 05/04/25 12:57 13:00 WBC 36.1 H* RBC 4.75 Hgb 13.3 Hct 39.3 L MCV 82.7 MCH 28.0 MCHC 33.8 RDW Std Deviation 49.9 H RDW Coeff of Reinaldo 16.3 H Plt Count 304 MPV 10.6 Immature Gran % (Auto) 1.800 H Neut % (Auto) 87.9 H Lymph % (Auto) 2.2 L [place] % (Auto) 7.2 Eos % (Auto) 0.4 Baso % (Auto) 0.5 Absolute Neuts (auto) 31.8 H Absolute Lymphs (auto) 0.78 L Nucleated RBC % 0 Sodium 131 L Potassium 4.9 Chloride 99 Carbon Dioxide 2.9 L* Anion Gap 29 H BUN 97 H Creatinine 5.48 H Estim Creat Clear Calc 19.15 L Est GFR (MDRD) Non-Af 11 L BUN/Creatinine Ratio 17.7 Glucose 150 H Calcium 8.2 POC Glucose 111 H ABG Data ABG results: ABG 05/04/25 13:11 Specimen Type ART Sample Site R Brach pH 6.93 L* Bicarbonate Actual 1.5 L Total CO2 < 5 Base Excess < -30 L O2 Saturation 97 O2 % 3.0 ABG pCO2 7.2 L* ABG pO2 148 H O2 Delivery Device Cannula Vent Mode Not entered Crit Call To/Read Back Yes Blood Gas Notified Whom jw Blood Gas Notified Time 13:13:02 Radiography Chest X-Ray - ED: 1 View, Read by ED Physician, Heart, Lungs, Mediastinum, Bony Structures, No Acute Disease and Chronic Changes Diagnostic Testing: Clinical Impression(s) from Imaging Studies Chest X-Ray 05/04/25 13:25 IMPRESSION: Advanced right glenohumeral joint osteoarthritic changes are seen, with associated severe joint narrowing and osseous reactive changes Prior right rib fractures noted. Blunting of the right costophrenic angle is seen, possibly due to chronic p leural thickening or small right pleural effusion. No left pleural effusion is noted. At least mild degenerative changes of the visualized spine are seen. Lungs are hypoinflated. No pneumothorax is noted. No evidence of pulmonary edema. The cardiomediastinal silhouette is within the normal range. Reading Location: [place] [address] Chest x-ray, portable, single view interpreted by myself shows chronic changes no acute process no effusion no pneumonia. Prior rib fractures. Second chest x-ray postintubation ET tube is high up in his trachea but it is in reasonable position. He is get good breath sounds. We advance it is currently at like 28 at the lips. Is along neck and torso. Rhythm Strip Rhythm Strip: Sinus Rhythm Rate: 72 Ectopy: None EKG Initial EKG: Attestation: I personally reviewed and interpreted this EKG as follows: Interpretation: Sinus Rhythm, No Acute Injury Pattern and RBBB Comments: Sinus rhythm rate of 72 right bundle branch block. No signs of acute OR. Procedures Other Procedures Procedure(s): Endotracheal ovation. Patient given 20 of etomidate under succinylcholine. Passed a 80 ET tube on the first attempt. 24 at the lips. Bilateral breath sounds. Good vapor change. Sats improved immediately. Critical Care Time Critical Care Time: Yes Critical care time (excluding procedures): 30-74 minutes, Including time spent:, Discussing w/Patient &/or Family/Medical Territory Manager, Discussing w/Consultants, Arranging Admission or Transfer, Performing Direct Patient Care at Bedside and - (45 minutes) Discharge Plan Dx/Rx/DC Orders Clinical Impression: Acute renal failure, Endotracheally intubated, Metabolic acidosis, Acute respiratory alkalosis, History of asthma, History of diabetes mellitus Disposition Disposition: [facility]
[2025-05-04] MEDS: Albuterol 2.5 MG/3 ML VIAL.NEB. INHALATION ×2 (13:21)
--- NOTE | 2025-05-04 13:25 | RAD_ITS ---
PROCEDURE: CHEST 1 VIEW (PORTABLE) 05/04/2025 REASON FOR EXAM: DYSPNEA TECHNIQUE: Frontal view of the chest. COMPARISON: None. RAD/Chest 1 View (Portable) IMPRESSION: Advanced right glenohumeral joint osteoarthritic changes are seen, with associa renu severe joint narrowing and osseous reactive changes Prior right rib fractures noted. Blunting of the right costophrenic angle is seen, possibly due to chronic pleur al thickening or small right pleural effusion. No left pleural effusion is noted. At least mild degenerative changes of the visualized spine are seen. Lungs are hypoinflated. No pneumothorax is noted. No evidence of pulmonary edema. The cardiomediastinal silhouette is within the normal range. Reading Location: [place] [address]
[2025-05-04 13:32] LABS: Hematocrit 39.3 % (40-54); Hemoglobin 13.3 g/dL (13.0-16.5); Immature Granulocytes Count 0.640 X10^3/uL (0.0-0.0); Mean Corp Hgb Conc 33.8 g/dL (32-36); Mean Corpuscular Volume 82.7 fL (80-94); Mean Platelet Vol. 10.6 fl (6.2-12.0); NRBC Flagged by Analyzer 0 % (0-5); POSITIVE COUNT YES; POSITIVE DIFFERENTIAL YES; Platelet Count 304 K/mm3 (150-450); RBC Distribution Width CV 16.3 % (11.6-14.6); RBC Distribution Width SD 49.9 fl (35.1-43.9); Red Blood Count 4.75 M/mm3 (4.6-6.2)
[2025-05-04 13:34] LABS: Differential Indicated SCAN CRITERIA MET; White Blood Count 36.1 K/mm3 (4.4-11.0)
--- NOTE | 2025-05-04 13:57 | CPS ---
This RT tried pt on bipap at this time. Rt also tried AVAPS. Rt changed settings, decreased settings. Pt is getting more and more confused. Pt is taking mask off, at bedside trying to help. Rt off bipap at this time. MD and RN aware.
[2025-05-04] MEDS: 0.9% Normal Saline (1000mL) 1,000 ML 999 ML IV ×2 (14:18→15:59)
[2025-05-04 14:22] LABS: BUN 97 mg/dL (4-19); BUN/Creat Ratio 17.7 RATIO (10-20); Calcium,Total 8.2 mg/dL (7.6-11.0); Chloride 99 mmol/L (98-108); Estimated Creatinine Clearance 19.15 ml/min (50-250); Glucose 150 mg/dL (70-99); Potassium 4.9 mmol/L (3.3-5.1)
--- NOTE | 2025-05-04 14:24 | ED.RN ---
LAB CALLED BICARB OF 2.9. DR AZUL. PT CURRENTLY BEING INTUBATED
[2025-05-04] MEDS: Propofol 10MG/Ml 1,000 MG/100 ML Bottle 6.8 MG CONT INF ×2 (14:30→23:04)
[2025-05-04 14:35] LABS: Anion Gap 29 (5-15); Carbon Dioxide 2.9 mmol/L (21.0-32.0); Differential Comment SCANNED
[2025-05-04 14:36] LABS: Mucous, Urine 0 SEEN /hpf (<or=2+); Squamous Epithelial Cells - UA 0 SEEN /hpf (0-5)
--- NOTE | 2025-05-04 14:40 | RAD_ITS ---
PROCEDURE: CHEST 1 VIEW (PORTABLE) 05/04/2025 REASON FOR EXAM: INTUBATION TECHNIQUE: Frontal view of the chest. COMPARISON: AP chest of 05/04/2025 (earlier the same day) RAD/Chest 1 View (Portable) IMPRESSION: Endotracheal tube position unchanged. Nasogastric tube seen with tip projectin g of the distal esophagus. Repositioning should be considered. Lungs remain hypoinflated and unchanged. No pleural effusion or pneumothorax is noted. The cardiomediastinal silhouette is stable, without evidence of cardiomegaly. Reading Location: [place] [id number]
--- NOTE | 2025-05-04 14:43 | RAD_ITS ---
PROCEDURE: CHEST 1 VIEW (PORTABLE) 05/04/2025 REASON FOR EXAM: INTUBATION TECHNIQUE: Frontal view of the chest. COMPARISON: Chest x-ray of 05/04/2025. RAD/Chest 1 View (Portable) IMPRESSION: Interval advancement of the nasogastric tube, but still with tip likely in the distal esophagus. The remainder of the examination is unchanged. Reading Location: [place] [address]
[2025-05-04 14:45] LABS: Color, Urine Yellow (Yellow); Glucose, Dipstick Normal (Normal); Ketone-Dipstick 5 mg/dl (Negative); Leukocyte Esterase-Dipstick 500 /ul (Negative); Nitrite-Dipstick Negative (Negative); Occult Blood-Urine 250 /ul (Negative); Protein-Dipstick 500 mg/dl (Negative); Specific Gravity, Urine 1.020 (1.002-1.030); Urine Bilirubin Dipstick Negative (Negative)
--- NOTE | 2025-05-04 14:45 | RAD_ITS ---
PROCEDURE: CHEST 1 VIEW 05/04/2025 REASON FOR EXAM: INTUBATION AND OG PLACEMENT TECHNIQUE: Frontal view of the chest. COMPARISON: Chest x-ray of 05/04/2025. RAD/Chest 1 View IMPRESSION: Interval advancement of the endotracheal tube is seen, now proximally 3 cm abov e the marine. Nasogastric tube is partially seen, but with proximal port clearly overlying th e distal esophagus. The remainder of the examination is unchanged. Reading Location: [place] [address]
[2025-05-04 14:57] LABS: Red Blood Cells-Urine 25-50 SEEN /hpf (0-5)
[2025-05-04] MEDS: Piperacil/Tazobactam 4.5 GM in 0.9% Normal Saline (100mL MB+) 100 ML IV (14:58)
--- NOTE | 2025-05-04 15:00 | PCM.HP.STD ---
HPI - General General Date of Admission: 05/04/25 Date of Service: 05/04/25 Chief Complaint: Shortness of breath HPI Narrative NOAH DOMINGUEZ, is a 60 M who presented to [facility] on 05/04/2025 with worsening shortness of breath. Patient lives at home alone. His significant other Ary lives close by. Medical history significant for type 2 diabetes mellitus and tobacco dependence. He smokes about 1 pack of cigarettes per day. Patient had a flulike illness about 1 week ago. Primary symptoms were upper respiratory symptoms and nausea with vomiting. He then developed worsening shortness of breath over the past several days. He saw his PCP in the office yesterday and was prescribed a Z-Christopher, and he has only taken 1 dose thus far. This morning he became significantly short of breath so he called EMS and they brought him in for further evaluation. On arrival to the ED he was breathing 35-40 times per minute. BP was elevated in the 210 systolic. Oxygen saturations were in the high 90s on 4 to 6 L nasal cannula. ABG showed pH 6.93, pCO2 7, pO2 148 on nasal cannula. BMP showed bicarb 2.9, anion gap 29, creatinine 5.48 (baseline around 1.0), BUN 97. Lactate 2.2. Chest x-ray showed blunting of the right costophrenic angle possibly due to small right pleural effusion but was otherwise unremarkable. Due to his work of breathing he was trialed on BiPAP but did not do well with this, so decision was made to intubate the patient. He was successfully intubated in the ED and placed on a ventilator. Hospitalist was then contacted for admission. I saw the patient at bedside in the ED. Patient was sedated and not following commands. He did have nonpurposeful movements noted. Will be admitted for further management. [facility] Medical History Asthma Diabetes Home Medications ?Medication ?Instructions ?Recorded ?Last Taken ?Type albuterol sulfate 90 mcg/actuation 2 puff inhalation Q6H PRN 01/08/21 Unknown History aerosol inhaler shortness of breath or wheezing metformin 500 mg tablet 500 mg PO BID diabetes 01/08/21 Unknown History sildenafil 25 mg tablet 25 mg PO DAILY PRN 11/17/22 Unknown History Allergy/AdvReac Type Severity Reaction Status Date / Time citalopram Allergy Mild Other Verified 05/04/25 15:15 Sulfa (Sulfonamide Allergy Unknown unknown Verified 05/04/25 15:15 Antibiotics) Family History Grandfather Diabetes Surgical History History of umbilical hernia repair Social History Smoking Status: Heavy Smoker (>10/day) alcohol intake: current alcohol intake frequency: a few times a week ROS Review of Systems ROS Unobtainable: due to endotracheal tube Vital Signs Vital Signs Vital Signs: 05/04/25 12:46 05/04/25 12:57 05/04/25 12:58 Temperature 99.5 F H 99.5 F H Temperature Source Oral Oral Pulse Rate 98 98 Respiratory Rate 38 H 38 H Respiratory Effort Short of Breath Labored Respiratory Depth Deep Respiratory Pattern Tachypnea Blood Pressure 215/63 H 215/63 H Blood Pressure Mean 113 113 Pulse Ox 100 100 Oxygen Delivery Method Nasal Cannula Nasal Cannula Nasal Cannula Oxygen Flow Rate (L/min) 6 6 6 05/04/25 13:06 05/04/25 13:13 05/04/25 13:21 Temperature Temperature Source Pulse Rate 74 Respiratory Rate 30 H Respiratory Effort Short of Breath Labored Respiratory Depth Respiratory Pattern Tachypnea Blood Pressure Blood Pressure Mean Pulse Ox Oxygen Delivery Method Room Air Oxygen Flow Rate (L/min) 05/04/25 13:57 Temperature 99.2 F H Temperature Source Axillary Pulse Rate 75 Respiratory Rate 22 H Respiratory Effort Respiratory Depth Respiratory Pattern Blood Pressure 160/70 H Blood Pressure Mean 100 Pulse Ox 100 Oxygen Delivery Method Nasal Cannula Oxygen Flow Rate (L/min) 3 Weight Weight: 114 kg Body Mass Index (BMI) 34.0 Physical Exam Const Constitutional Narrative: Middle-age male, class I obesity, intubated and sedated, not following commands. HEENT normocephalic, head/scalp atraumatic, nasal mucous membranes and turbinates normal and moist oral mucous membranes HEENT Narrative: ET tube in place. Eyes PERRL, EOMs intact bilaterally and conjunctivae normal Neck supple Chest inspection of chest normal Resp Resp Narrative: Mild crackles noted in lung bases bilaterally. Otherwise good air movement throughout with no wheezing noted. Cardio regular rate, regular rhythm, no murmurs and peripheral pulses 2+ throughout GI normal to inspection, nondistended, normoactive bowel sounds, soft to palpation, non-tender and non-distended Extremity Extremity Narrative: Cyanotic feet and toes noted bilaterally. Skin no rashes or lesions noted Results Lab / Micro Data 05/04/25 13:00 05/04/25 16:39 Labs: Laboratory Results - last 24 hr 05/04/25 12:57: POC Glucose 111 H 05/04/25 13:00: WBC 36.1 H*, RBC 4.75, Hgb 13.3, Hct 39.3 L, MCV 82.7, MCH 28.0, MCHC 33.8, RDW Std Deviation 49.9 H, RDW Coeff of Reinaldo 16.3 H, Plt Count 304, MPV 10.6, Immature Gran % (Auto) 1.800 H, Neut % (Auto) 87.9 H, Lymph % (Auto) 2.2 L, [place] % (Auto) 7.2, Eos % (Auto) 0.4, Baso % (Auto) 0.5, Absolute Neuts (auto) 31.8 H, Absolute Lymphs (auto) 0.78 L, Nucleated RBC % 0, Differential Comment SCANNED, Diff Path Review November, Platelet Estimate ADEQUATE, Sodium 131 L, Potassium 4.9, Chloride 99, Carbon Dioxide 2.9 L*, Anion Gap 29 H, BUN 97 H, Creatinine 5.48 H, Estim Creat Clear Calc 19.15 L, Est GFR (MDRD) Non-Af 11 L, BUN/Creatinine Ratio 17.7, Glucose 150 H, Calcium 8.2 05/04/25 14:00: Lactic Acid 2.2 H* 05/04/25 14:31: Urine Color Yellow, Urine Clarity Sl. Cloudy, Urine pH 6.0, Ur Specific [place] 1.020, Urine Protein 500 H, Urine Glucose (UA) Normal, Urine Ketones 5 H, Urine Occult Blood 250 H, Urine Nitrite Negative, Urine Bilirubin Negative, Urine Urobilinogen Normal, Ur Leukocyte Esterase 500 H, Urine RBC 25-50 SEEN, Urine WBC 25-50 SEEN, Ur Squamous Epith Cells 0 SEEN, Urine Bacteria 1+, Urine Mucus 0 SEEN ABG Data ABG results: ABG 05/04/25 13:11 Specimen Type ART Sample Site R Brach pH 6.93 L* Bicarbonate Actual 1.5 L Total CO2 < 5 Base Excess < -30 L O2 Saturation 97 O2 % 3.0 ABG pCO2 7.2 L* ABG pO2 148 H O2 Delivery Device Cannula Vent Mode Not entered Crit Call To/Read Back Yes Blood Gas Notified Whom jw Blood Gas Notified Time 13:13:02 Rhythm Strip Rhythm Strip: Sinus Rhythm Rate: 72 Ectopy: None Imaging Radiology Impression Chest X-Ray 05/04/25 13:25 IMPRESSION: Advanced right glenohumeral joint osteoarthritic changes are seen, with associated severe joint narrowing and osseous reactive changes Prior right rib fractures noted. Blunting of the right costophrenic angle is seen, possibly due to chronic pleural thickening or small right pleural effusion. No left pleural effusion is noted. At least mild degenerative changes of the visualized spine are seen. Lungs are hypoinflated. No pneumothorax is noted. No evidence of pulmonary edema. The cardiomediastinal silhouette is within the normal range. Reading Location: [place] [address] Chest X-Ray 05/04/25 14:40 IMPRESSION: Endotracheal tube position unchanged. Nasogastric tube seen with tip projecting of the distal esophagus. Repositioning should be considered. Lungs remain hypoinflated and unchanged. No pleural effusion or pneumothorax is noted. The cardiomediastinal silhouette is stable, without evidence of cardiomegaly. Reading Location: [place] [address] Chest X-Ray 05/04/25 14:43 IMPRESSION: Interval advancement of the nasogastric tube, but still with tip likely in the distal esophagus. The remainder of the examination is unchanged. Reading Location: [place] [address] Chest X-Ray 05/04/25 14:45 IMPRESSION: Interval advancement of the endotracheal tube is seen, now proximally 3 cm above the marine. Nasogastric tube is partially seen, but with proximal port clearly overlying the distal esophagus. The remainder of the examination is unchanged. Reading Location: [facility] Assessment & Plan Assessment/Plan (1) Acute renal failure: (2) High anion gap metabolic acidosis: (3) Acute respiratory failure: PLAN: Plan Patient is a 60-year-old male who presented to [facility] ED on 05/04/2025 with worsening shortness of breath. 1. Acute respiratory failure, sepsis without shock suspected secondary to community-acquired pneumonia ? Admit under inpatient status to ICU. Textile Supervisor consulted. Respiration rate around 40 with increased work of breathing in the ED suspected secondary to severe metabolic acidosis as below as well as community-acquired pneumonia. Chest x-ray fairly unremarkable but on CT abdomen pelvis small bilateral pleural effusions and patchy scattered opacities within bilateral lungs noted concerning for underlying infectious/inflammatory process. Met sepsis criteria with severe leukocytosis, elevated lactic acid, acute respiratory failure, acute renal failure and elevated INR. No significant wheezing on exam, low concern for COPD exacerbation. Patient was successfully intubated in the ED. Remains stable on low vent settings. Ventilator management per thermostat maker. Will treat with IV vancomycin and Zosyn. Sputum culture and urine antigens ordered. 2. Acute renal failure with severe anion gap metabolic acidosis ? Nephrology consulted. Creatinine 5.48, BUN 97 on admit. Baseline creatinine appears to be around 1.0. Initial ABG with pH 6.93, pCO2 7. Bicarb 2.9 on BMP. Appears that acute renal failure is the primary pizza driver of the metabolic acidosis at this time. Mild lactic acid elevation of 2.2. Beta hydroxybutyrate only mildly elevated at 2.9. Given 2 L IV fluids in the ED and Rasmussen catheter placed, and patient with minimal urine output. Repeat ABG postintubation with pH 6.80. Patient given 2 amps of bicarb and initiated on a bicarb drip at 200 cc/hr; unfortunately repeat ABG about 2 hours later only showed slight increase to pH 6.88. Discussed with nephrology and decision made to place temporary right IJ HD catheter for CRRT. Line placed and patient will be initiated on CRRT tonight. Trend BMP every 6 hours and monitor closely. 3. Type 2 diabetes mellitus ? Blood glucose 150 on admit. A1c 6.6%. Will treat with sign scale insulin every 6 hours for now, adjust as needed. Hold home metformin. 4. Tobacco dependence ? Smokes about 1 pack of cigarettes daily. Has smoked for many years. Nicotine replacement therapy will be available if needed and will need to discuss cessation with patient on discharge. 5. Class I obesity ? BMI 33 on admit. Complicates hospital course and care. DVT prophylaxis: Heparin subcu CODE STATUS: Full code, verified Expected disposition: TBD Total clinical time spent by myself addressing the patient's medical issues, reviewing all the data, and collaborating with patient's care team: 83 minutes. Charges/Coding Visit Charges Inpatient E&M: 88920 Init Hosp L3
--- NOTE | 2025-05-04 15:02 | CT_ITS ---
PROCEDURE: ABDOMEN/PELVIS WITHOUT CONT 05/04/2025 REASON FOR EXAM: LEUKOCYTOSIS W/O A SOURCE TECHNIQUE: Procedure Code: CTABDPEL Modality: CT Procedure: ABDOMEN/PELVIS WITHOUT CONT Noncontrast technique limits evaluation of the abdominal and pelvic viscera. Coronal and Sagittal reconstruction series were provided. One or more dose reduction techniques were used (e.g., Automated exposure control, adjustment of the mA and/or kV according to patient size, use of iterative reconstruction technique). RADIATION DOSE SUMMARY: CTDlvol: 21.8 mGy DLP: 1296.42 mGycm COMPARISON: None FINDINGS: Lung bases: Small bilateral pleural effusions with adjacent atelectasis. Left lower lobe subpleural nodule measuring 7 mm. Liver: Diffuse hepatic steatosis. Gallbladder: Gallbladder is distended with sludge. Spleen: Normal size. Pancreas: Diffuse fatty atrophy. Adrenals: Unremarkable Kidneys: Small nonobstructing right lower pole renal calculus measuring 4 mm. Bilateral perinephric stranding right more than left. Bladder: Bladder is underdistended with foci of air and Rasmussen's catheter in it. Mild stranding is visualized around bladder wall. Reproductive Organs: Unremarkable Bowel: Partially visualized enteric tube transversing under left hemidiaphragm with distal tip within fundus. Moderate stool burden. There is widespread colonic diverticulosis. Mild stranding is visualized along multiple diverticula within right ascending colon near hepatic flexure (series 601/57) Appendix: The appendix is not identified. There is no inflammatory process identified in the right lower quadrant to suggest appendicitis. Lymph nodes: Multiple scattered mesenteric lymph nodes. Multiple scattered inguinal as well as pelvic lymph nodes are also visualized. Vasculature: Mild diffuse atherosclerotic calcifications are noted. Peritoneum / Retroperitoneum: There is diffuse stranding of mesentery. Bones: Age-related degenerative changes of spine. CT/Abdomen/Pelvis without Cont IMPRESSION: Bilateral small pleural effusion with adjacent atelectasis. Additionally there are patchy scattered opacities within bilateral lung. Findings are concerning for underlying infectious/inflammatory process. There is widespread colonic diverticulosis. Mild stranding is visualized along multiple diverticula within right ascending colon. Findings could be related to early developing acute diverticulitis. Small nonobstructing right lower renal calculus. Diffuse hepatic steatosis. Reading Location: [id number]
--- NOTE | 2025-05-04 15:30 | ED.RN ---
REPORT CALLED TO ICU NURSE LUANA AT THIS TIME. ICU READY FOR THE PATIENT.
[2025-05-04 15:50] LABS: Allen Test Positive; Base Excess < -30 mmol/L (-2 to +2); FI02 35.0; PEEP 5; PO2 105 mmHG (75-100); RR 12; SITE R Brach; SO2 89 % (95-99); Time Given 15:47:52
[2025-05-04 16:00] LABS: Troponin T High Sensitivity 24 ng/L (<=22)
[2025-05-04] MEDS: Sodium Bicarbonate 8.4% 50 ML Syringe 100 MEQ IV (16:20)
[2025-05-04] MEDS: Sodium Bicarbonate 50 MEQ in Dextrose 5%-Water (1000mL Bag) 1,000 ML 200 MEQ IV (16:40)
[2025-05-04 17:08] LABS: Troponin T High Sens 2 HR 23 ng/L (<=22)
[2025-05-04 17:49] LABS: Prothrombin Time (Protime)PT. 21.7 SECONDS (11.7-14.9)
[2025-05-04 17:50] LABS: Partial Thromboplast Time 32.4 Seconds (24.1-36.2)
[2025-05-04] MEDS: Pantoprazole Sodium 80 MG in 0.9% Normal Saline (50mL Bag) 15 ML 420 MG IV BOLUS (17:53)
[2025-05-04 18:05] LABS: Reflex Lactate? Y
[2025-05-04 18:06] LABS: Anion Gap 27 (5-15); BUN 98 mg/dL (4-19); BUN/Creat Ratio 17.9 RATIO (10-20); Calcium,Total 7.2 mg/dL (7.6-11.0); Carbon Dioxide 4.4 mmol/L (21.0-32.0); Chloride 101 mmol/L (98-108); Estimated Creatinine Clearance 19.06 ml/min (50-250); Glucose 227 mg/dL (70-99); Potassium 4.8 mmol/L (3.3-5.1)
[2025-05-04 18:12] LABS: Base Excess -27 mmol/L (-2 to +2); FI02 30.0; PEEP 5; PO2 86 mmHG (75-100); RR 24; SITE R Brach; SO2 86 % (95-99); Time Given 18:08:41
[2025-05-04 18:38] LABS: Troponin T High Sens 4 HR 26 ng/L (<=22)
--- NOTE | 2025-05-04 18:57 | PCM.RX.CS ---
Consult Antibiotic Management Pharmacy has been consulted to manage selected antibiotic: Vancomycin Type of Intervention Type of Consult: New start Suspected Infection Suspected Infection: Sepsis Labs Labs: Sodium 133 mmol/L (133-145) 05/04/25 16:39 Potassium 4.8 mmol/L (3.3-5.1) 05/04/25 16:39 Chloride 101 mmol/L (98-108) 05/04/25 16:39 Carbon Dioxide 4.4 mmol/L (21.0-32.0) L* 05/04/25 16:39 Anion Gap 27 (5-15) H 05/04/25 16:39 BUN 98 mg/dL (4-19) H 05/04/25 16:39 Creatinine 5.46 mg/dL (0.70-1.20) H 05/04/25 16:39 Est GFR (MDRD) Non-Af 11 (>60) L 05/04/25 16:39 BUN/Creatinine Ratio 17.9 RATIO (10-20) 05/04/25 16:39 Glucose 227 mg/dL (70-99) H 05/04/25 16:39 Microbiology Microbiology: Microbiology 05/04/25 14:06 Mucosa - Nose SARS-CoV-2, Influenza & RSV (PCR) - Final Dosing Weight Weight used for dosin kg Estimated Creatinine Clearance Estimated Creatinine Clearance: ~ 19 Goal Trough Goal Trough: 15-20 mcg/mL Pharmacy Plan for Drug Dosing Pharmacy Plan for Drug Dosing: Vancomycin 2000 mg IV x 1 ordered, await improvement in renal function or random level prior to scheduled dosing. Pharmacy Service will continue to monitor and adjust dosing as required. Follow-Up Labs Follow-Up Labs: Trough: Vancomycin Date/Time Labs Ordered Labs to be done on [date and time ordered]: 05/06/25 @ 0600
[2025-05-04 19:05] LABS: CPK Total, Creatine Kinase 76 U/L (24-195); Triglycerides 258 mg/dL
[2025-05-04 19:34] LABS: BETA-HYDROXYBUTYRATE 2.9 mmol/L (0.0-0.3); Procalcitonin 26.50 ng/mL (<=0.10)
--- NOTE | 2025-05-04 19:56 | RAD_ITS ---
PROCEDURE: CHEST 1 VIEW (PORTABLE) 05/04/2025 REASON FOR EXAM: HD LINE PLACEMENT TECHNIQUE: Frontal view of the chest. COMPARISON: 05/04/2025. FINDINGS: Endotracheal tube terminates just below the clavicular heads. Orogastric tube terminates below the level of the radiograph. Right IJ terminates in the upper superior vena cava. Mild hilar prominence which may represent vascular congestion or secretion status post intubation. RAD/Chest 1 View (Portable) IMPRESSION: As above. Reading Location: [id number]
[2025-05-04] MEDS: Vancomycin HCl 2,000 MG in 0.9% Normal Saline (500mL Bag) 500 ML 250 MG IV (20:05)
[2025-05-04 20:07] LABS: Alcohol, Blood (Medical)-Serum < 10.1 mg/dL (<=10.0)
[2025-05-04] MEDS: fentaNYL drip 100 ML 5 MCG CONT INF (20:09)
--- NOTE | 2025-05-04 20:15 | NURSING ---
Dr Tello at bedside to place dialysis catheter. Propofol turned up to 25mcg/kg/min per Dr Tello order, line placed succesfully, chest xray done. Dr Tello will be talking to Dr Ferreira about crrt orders
[2025-05-04] MEDS: PUREFLOW B SOLUTION 4K 5,000 ML BAG 9 BAG PF (20:55)
--- NOTE | 2025-05-04 21:08 | PRO.PCM_ITS ---
Procedures Hospitalists Procedures: [id number] Insert Non-tunnel CV Cath Bedside Procedural Bedside Procedure Information Date of Procedure: 05/04/25 Pre-Procedure Diagnosis: Severe metabolic acidosis Post-Procedure Diagnosis: Severe metabolic acidosis Procedure Performed:: Right IJ temporary HD catheter placement shoulder joiner: No Procedure Time Out: :30 Procedure Start Time: Procedure Stop Time: :50 Description of procedure: Attempted to contact brother for consent for HD line placement but was unsuccessful. Thus, HD line was placed due to emergent need for renal replacement therapy. Region prepped and draped in standard fashion. Ultrasound guidance used to obtain access, guidewire threaded without issue, temporary HD catheter placed over guidewire and wire removed with cap placed. Lines drawn and flushed without difficulty. HD catheter sutured into place. Chest x-ray ordered to confirm placement. Complications Complications: No
[2025-05-04] MEDS: Chlorhexidine 15 ML PO (21:40)
[2025-05-04] MEDS: 0.9% Saline Lock 10 ML Syringe IV ×2 (21:40→22:38)
[2025-05-04] MEDS: CHLORHEXIDINE GLUC 2% CLOTH 1 EACH TOWELETTE TOPICAL (21:40)
[2025-05-04] MEDS: Heparin Injection (Vial) 5,000 UNIT/ML VIAL 5000 UNIT SC (21:41)
[2025-05-04 22:17] LABS: Anion Gap 24 (5-15); BUN 103 mg/dL (4-19); BUN/Creat Ratio 17.9 RATIO (10-20); Calcium,Total 7.0 mg/dL (7.6-11.0); Carbon Dioxide 5.4 mmol/L (21.0-32.0); Chloride 100 mmol/L (98-108); Estimated Creatinine Clearance 18.22 ml/min (50-250); Glucose 355 mg/dL (70-99); Potassium 5.1 mmol/L (3.3-5.1)
[2025-05-04] MEDS: Piperacil/Tazobactam 3.375 GM in 0.9% Normal Saline (50mL MB+) 50 ML IV (22:35)
--- NOTE | 2025-05-04 22:50 | PCMCONS.TICU ---
HPI Consult Data Date of Consult: 05/05/25 HPI Narrative HPI Narrative: NOAH DOMINGUEZ, is a 60 M w/ asthma, DM, tobacco use who was admitted for respiratory failure. History obtained from chart as pt intubated, no family at bedside. He reportedly had a flulike illness about 1 week ago, associated with URI sx and N/V. He then developed worsening dyspnea over past few days. Saw PCP in office yesterday and was given Z-toshia, only took 1 dose of this. He then developed significant worsening dyspnea this AM prompting him to call EMS. He was tachypneic and with SBP 200s on arrival here. He was also noted to have severe metabolic acidosis with pH < 7 and severe BAR. He was reportedly awake and able to follow commands on arrival. He failed attempt at BiPAP and was ultimately intubated. Nephrology was consulted per IM and pt was started on CRRT this evening. ROS: Unable to be obtained as pt intubated [facility] Medical History Asthma Diabetes Home Medications ?Medication ?Instructions ?Recorded ?Last Taken ?Type albuterol sulfate 90 mcg/actuation 2 puff inhalation Q6H PRN 01/08/21 Unknown History aerosol inhaler shortness of breath or wheezing metformin 500 mg tablet 500 mg PO BID diabetes 01/08/21 Unknown History sildenafil 25 mg tablet 25 mg PO DAILY PRN 11/17/22 Unknown History Allergy/AdvReac Type Severity Reaction Status Date / Time citalopram Allergy Mild Other Verified 05/04/25 15:15 Sulfa (Sulfonamide Allergy Unknown unknown Verified 05/04/25 15:15 Antibiotics) Family History Grandfather Diabetes Surgical History History of umbilical hernia repair Social History Smoking Status: Heavy Smoker (>10/day) alcohol intake: current alcohol intake frequency: a few times a week Objective Data Objective Data Vital Signs: Vital Signs Last response Temperature 35.8 C L 05/04/25 22:00 Temperature Source Core 05/04/25 22:00 Pulse Rate 69 05/04/25 22:00 Pulse Strength Weak (1+) 05/04/25 21:25 Respiratory Rate 24 H 05/04/25 22:00 Respiratory Effort Mechanically Ventilated 05/04/25 20:00 Respiratory Depth Normal 05/04/25 20:00 Respiratory Pattern Tachypnea 05/04/25 19:51 Blood Pressure 111/46 L 05/04/25 22:00 Blood Pressure Mean 67 05/04/25 22:00 Blood Pressure Source Monitor 05/04/25 22:00 Blood Pressure Position Semi-Fowlers 05/04/25 22:00 Blood Pressure Location Left Arm 05/04/25 22:00 Pulse Ox 100 05/04/25 22:00 Oxygen Delivery Method Mechanical Ventilator 05/04/25 22:00 Oxygen Flow Rate (L/min) 2 05/04/25 14:16 Fraction of Inspired Oxygen (FIO2) 30 05/04/25 22:00 I&O: I&O Last 24 Hours 05/03/25 05/04/25 05/04/25 23:59 11:59 23:59 Intake Total 3825.06 / 3825.06 Output Total 767 / 767 Balance 3058.06 / 3058.06 I&O: Total Stay 05/04/25 12:45 thru 05/04/25 22:18 Intake Total 3825.06 Output Total 767 Balance 3058.06 Current Meds Ordered / Administered: Current meds ordered / Administered Generic Name Dose Route Start Last Admin Trade Name Freq PRN Reason Stop Dose Admin Acetaminophen 650 mg 05/04/25 16:20 Acetaminophen 325 Mg Tablet GT Q6H PRN PRN Pain 1-10 Or Fever>100.7 CRRT Dialysis Solution 9 bag 05/04/25 20:24 05/04/25 20:55 Pureflow B Solution 4k 5,000 Ml Bag PF 4 bag UD PRN Administration CRRT Protocol Chlorhexidine Gluconate 15 ml 05/04/25 22:00 05/04/25 21:40 Chlorhexidine 15 Ml PO 15 ml BID CHERIE Administration Chlorhexidine Gluconate 1 each 05/05/25 10:00 05/04/25 21:40 Chlorhexidine Gluc 2% Cloth 1 Each Towelette TOPICAL 1 each DAILY CHERIE Administration Fentanyl Citrate 50 mcg 05/04/25 16:20 Fentanyl 100 Mcg/2 Ml Ampul IV Q2H PRN PRN Pain >/= 4/10 or CPOT>/= 3/8 Glucagon 1 mg 05/04/25 16:20 Glucagon 1 Mg/Ml Syringe IM X1 PRN Hypoglycemia Protocol Heparin Sodium (Porcine) 5,000 unit 05/04/25 22:00 05/04/25 21:41 Heparin Injection (Vial) 5,000 Unit/Ml Vial SC 5,000 unit Q8 CHERIE Administration Heparin Sodium (Porcine) 0 units 05/04/25 20:24 Heparin 10,000 Units/10 Ml Vial IV X1 PRN Emergency Dialysis Catheter DC Hydralazine HCl 10 mg 05/04/25 16:20 Hydralazine 20 Mg/Ml Vial IV Q4H PRN PRN SBP GREATER THAN 170 Protocol Propofol 1,000 mg in 100 mls @ 6.84 mls/hr 05/04/25 14:45 05/04/25 21:15 Diprivan CONT INF 10 mcg/kg/min .Q12H CHERIE 6.8 mls/hr Protocol Titration 10 MCG/KG/MIN Dextrose 250 mls @ 0 mls/hr 05/04/25 16:20 Dextrose 10%-Water IV .Q0M PRN HYPOGLYCEMIA Protocol As Directed Sodium Chloride 250 mls @ 15 mls/hr 05/04/25 16:27 IV .[id number] PRN Saline Flush Sodium Chloride 250 mls @ 15 mls/hr 05/04/25 16:27 IV .[id number] PRN Additional IVPB Infusion Vancomycin IV-PHARMACY TO DOSE 500 mls @ 250 mls/hr 05/04/25 18:40 1 each/ Sodium Chloride IV PRN PRN Rx to Dose Protocol Fentanyl 100 mls @ 5 mls/hr 05/04/25 19:25 05/04/25 21:00 CONT INF 50 mcg/hr UD CHERIE 5 mls/hr Protocol Titration 50 MCG/HR Magnesium Sulfate 4 gm in 100 mls @ 25 mls/hr 05/04/25 20:24 IV X1 PRN Magnesium level < 1.6mg/dl Sodium Phosphate 30 mmol/ 260 mls @ 62.5 mls/hr 05/04/25 20:24 Sodium Chloride IV X1 PRN Phosphorus Level <2.5 Potassium Chloride 40 meq/ 270 mls @ 135 mls/hr 05/04/25 20:24 Sodium Chloride IV X1 PRN K+ <3.5 mEq/L Piperacillin Sod/Tazobactam 50 mls @ 12.5 mls/hr 05/04/25 22:00 05/04/25 22:35 Sod 3.375 gm/ Sodium Chloride IV 12.5 mls/hr Q8 CHERIE Administration Vancomycin HCl 1,000 mg/ 270 mls @ 250 mls/hr 05/05/25 08:00 Sodium Chloride IV Q12H [facility] Insulin Human Lispro 0 unit 05/04/25 18:00 05/04/25 18:08 Insulin Lispro 100 Unit/Ml Insuln.Pen SC 3 u Q6 CHERIE Administration Protocol Melatonin 3 mg 05/04/25 16:20 Melatonin 3 Mg Tablet PO QHS PRN PRN INSOMNIA Ondansetron HCl 4 mg 05/04/25 16:20 Ondansetron 4 Mg/2 Ml Vial IV Q8H PRN PRN NAUSEA/VOMITING Sodium Chloride 10 - 40 ml 05/04/25 16:27 05/04/25 22:38 0.9% Saline Lock 10 Ml Syringe IV 20 ml UD PRN Administration SALINE FLUSH Sodium Chloride 20 ml 05/04/25 20:24 0.9% Saline Lock 10 Ml Syringe IV UD PRN Emergency Dialysis Catheter DC Sodium Chloride 50 - 100 ml 05/04/25 20:24 0.9% Normal Saline 1,000 Ml Iv.Soln. IV UD PRN CRRT System Flush Vancomycin Protocol 1 lab 05/06/25 06:30 Vancomycin Trough/Random Due MC 05/06/25 08:30 DAILY [facility] Lab / Micro Data 05/04/25 13:00 05/04/25 23:40 Labs: Laboratory Results - last 24 hr 05/04/25 12:57: POC Glucose 111 H 05/04/25 13:00: WBC 36.1 H*, RBC 4.75, Hgb 13.3, Hct 39.3 L, MCV 82.7, MCH 28.0, MCHC 33.8, RDW Std Deviation 49.9 H, RDW Coeff of Reinaldo 16.3 H, Plt Count 304, MPV 10.6, Immature Gran % (Auto) 1.800 H, Neut % (Auto) 87.9 H, Lymph % (Auto) 2.2 L, [place] % (Auto) 7.2, Eos % (Auto) 0.4, Baso % (Auto) 0.5, Absolute Neuts (auto) 31.8 H, Absolute Lymphs (auto) 0.78 L, Nucleated RBC % 0, Differential Comment SCANNED, Diff Path Review November, Platelet Estimate ADEQUATE, Sodium 131 L, Potassium 4.9, Chloride 99, Carbon Dioxide 2.9 L*, Anion Gap 29 H, BUN 97 H, Creatinine 5.48 H, Estim Creat Clear Calc 19.15 L, Est GFR (MDRD) Non-Af 11 L, BUN/Creatinine Ratio 17.7, Glucose 150 H, Calcium 8.2, Troponin T High Sens 24 H 05/04/25 14:00: Lactic Acid 2.2 H* 05/04/25 14:31: Urine Color Yellow, Urine Clarity Sl. Cloudy, Urine pH 6.0, Ur Specific Scott 1.020, Urine Protein 500 H, Urine Glucose (UA) Normal, Urine Ketones 5 H, Urine Occult Blood 250 H, Urine Nitrite Negative, Urine Bilirubin Negative, Urine Urobilinogen Normal, Ur Leukocyte Esterase 500 H, Urine RBC 25-50 SEEN, Urine WBC 25-50 SEEN, Ur Squamous Epith Cells 0 SEEN, Urine Bacteria 1+, Urine Mucus 0 SEEN 05/04/25 15:13: Troponin T Hi Sens 2 Hr 23 H 05/04/25 16:33: Ur Random Sodium 78, Urine Creatinine 56.00 05/04/25 16:39: Sodium 133, Potassium 4.8, Chloride 101, Carbon Dioxide 4.4 L*, Anion Gap 27 H, BUN 98 H, Creatinine 5.46 H, Estim Creat Clear Calc 19.06 L, Est GFR (MDRD) Non-Af 11 L, BUN/Creatinine Ratio 17.9, Glucose 227 H, Hemoglobin A1c 6.6 H, Calcium 7.2 L, Total Creatine Kinase 76, Triglycerides 258 H, b-Hydroxybutyric mmol/L 2.9 H, Procalcitonin 26.50 H 05/04/25 17:23: PT 21.7 H, INR 1.9, APTT 32.4 05/04/25 17:35: Troponin T Hi Sens 4Hr 26 H 05/04/25 18:03: POC Glucose 253 H 05/04/25 18:55: Lactic Acid 1.1, Ethyl Alcohol < 10.1 05/04/25 20:55: Sodium 129 L, Potassium 5.1, Chloride 100, Carbon Dioxide 5.4 L*, Anion Gap 24 H, BUN 103 H*, Creatinine 5.74 H, Estim Creat Clear Calc 18.22 L, Est GFR (MDRD) Non-Af 11 L, BUN/Creatinine Ratio 17.9, Glucose 355 H, Calcium 7.0 L Micro: Microbiology 05/04/25 16:33 Urine, Clean Catch Legionella Antigen - Final 05/04/25 16:33 Urine, Clean Catch Streptococcus pneumoniae Antigen (M - Final 05/04/25 19:16 Nasal Secretion MRSA (PCR) - Final 05/04/25 16:29 Mucosa - Nose Respiratory Panel (PCR) - Final 05/04/25 14:06 Mucosa - Nose SARS-CoV-2, Influenza & RSV (PCR) - Final ABG Data ABG results: ABG 05/04/25 05/04/25 05/04/25 13:11 15:46 18:07 Specimen Type ART ART ART Sample Site R Brach R Brach R Brach pH 6.93 L* 6.80 L* 6.89 L* Bicarbonate Actual 1.5 L 4.2 L 6.2 L Total CO2 < 5 5 7 Base Excess < -30 L < -30 L -27 L O2 Saturation 97 89 L 86 L O2 % 3.0 35.0 30.0 ABG pCO2 7.2 L* 26.9 L 32.5 L ABG pO2 148 H 105 H 86 Satish Test Positive Respiration Rate 12 24 O2 Delivery Device Cannula Adult Vent Adult Vent Vent Mode Not entered AC AC Tidal Volume 450.0 450.0 POC PEEP 5 5 Crit Call To/Read Back Yes Yes Yes Blood Gas Notified Whom alberto huggins Blood Gas Notified Time 13:13:02 15:47:52 18:08:41 Rhythm Strip Rhythm Strip: Sinus Rhythm Rate: 72 Ectopy: None Imaging Radiology Impression Chest X-Ray 05/04/25 13:25 IMPRESSION: Advanced right glenohumeral joint osteoarthritic changes are seen, with associated severe joint narrowing and osseous reactive changes Prior right rib fractures noted. Blunting of the right costophrenic angle is seen, possibly due to chronic pleural thickening or small right pleural effusion. No left pleural effusion is noted. At least mild degenerative changes of the visualized spine are seen. Lungs are hypoinflated. No pneumothorax is noted. No evidence of pulmonary edema. The cardiomediastinal silhouette is within the normal range. Reading Location: [place] [id number] Chest X-Ray 05/04/25 14:40 IMPRESSION: Endotracheal tube position unchanged. Nasogastric tube seen with tip projecting of the distal esophagus. Repositioning should be considered. Lungs remain hypoinflated and unchanged. No pleural effusion or pneumothorax is noted. The cardiomediastinal silhouette is stable, without evidence of cardiomegaly. Reading Location: [place] [address] Chest X-Ray 05/04/25 14:43 IMPRESSION: Interval advancement of the nasogastric tube, but still with tip likely in the distal esophagus. The remainder of the examination is unchanged. Reading Location: [place] [address] Chest X-Ray 05/04/25 14:45 IMPRESSION: Interval advancement of the endotracheal tube is seen, now proximally 3 cm above the marine. Nasogastric tube is partially seen, but with proximal port clearly overlying the distal esophagus. The remainder of the examination is unchanged. Reading Location: [place] [address] Abdomen/Pelvis CT 05/04/25 15:02 IMPRESSION: Bilateral small pleural effusion with adjacent atelectasis. Additionally there are patchy scattered opacities within bilateral lung. Findings are concerning for underlying infectious/inflammatory process. There is widespread colonic diverticulosis. Mild stranding is visualized along multiple diverticula within right ascending colon. Findings could be related to early developing acute diverticulitis. Small nonobstructing right lower renal calculus. Diffuse hepatic steatosis. Reading Location: [id number] Chest X-Ray 05/04/25 19:56 IMPRESSION: As above. Reading Location: [id number] Assessment and Plan . Assessment and plan: Physical Exam: Gen - NAD, obese, intubated HEENT - MMM. ETT in place. PERRL Resp - Diminished BS. Mechanically ventilated CV - RRR. No m/g/r Abd - Soft, NT, ND Ext - No c/c/e. Skin - No rashes? Neuro - Sedated, intubated I have reviewed the pertinent vital sign, laboratory, and imaging data. ASSESSMENT: # Acute hypoxic respiratory failure # Sepsis # UTI - possible pyelo given perinephric stranding on CT # Pulmonary bibasilar infiltrates - favor atelectasis though PNA not entirely excluded # Severe AGMA - suspect primarily from renal failure # Severe BAR # Possible early acute diverticulitis? - noted on CT # Coffee ground OG output # Hepatic steatosis # Asthma # DM - A1c 6.6% # Lung nodule # Tobacco use PLAN: -Adjusted vent VC+ 600/24/5/30%. Repeat ABG -Wean sedation as tolerated to maintain vent synchrony -Monitor electrolytes/acidosis. Cont CRRT. Minimal lactate elevation 2.2 on admit now cleared. Minimal ketone elevation. Lower suspicion for DKA but consider starting insulin gtt if worsening hyperglycemia/acidosis -Check U tox, serum osm -Empiric vanc/zosyn. f/u Cx. Viral panel neg -Monitor BP. s/p IVF bolus. May need pressors if worsening -Verify EKG. Slight trop elevation, relatively flat -Consider surgeon consult in AM for ?early diverticulitis. If pt deteriorating would pursue urgent surgery consult overnight, however currently with benign abdominal exam, normal lactate, CT without concerning findings such as free air/abscess/perforation -Follow CBC, monitor for bleeding/worsening coffee grounds. May need GI eval. Cont PPI -Duonebs -OP f/u for lung nodule FEN/GI: NPO Proph DVT/GI: SCDs, protonix Critical Care Time: 60 mins The entirety of this encounter was done via telemedicine using both audio and video. Consent was unable to be obtained for the telemedicine encounter due to the patient's mental status.
[2025-05-05] VITALS (47 sets, daily range): BP systolic 85–143; BP diastolic 37–53; PULSE 54–76; RESP 18–28; TEMP 36–36.9; O2SAT 99–100; BMI 34.0
[2025-05-05] MEDS: Norepinephrine 8 MG in 0.9% Normal Saline (250mL Bag) 242 ML 9.4 MG CONT INF (00:03)
[2025-05-05 00:16] LABS: Barbiturate Urine NEGATIVE (< 200 ng/mL); Benzodiazepine Urine NEGATIVE (< 200 ng/mL); PCP Urine NEGATIVE (< 25 ng/mL); THC Urine NEGATIVE (< 50 ng/mL)
[2025-05-05 00:20] LABS: BUN 96 mg/dL (4-19); BUN/Creat Ratio 18.5 RATIO (10-20); Calcium,Total 7.0 mg/dL (7.6-11.0); Chloride 101 mmol/L (98-108); Estimated Creatinine Clearance 20.27 ml/min (50-250); Glucose 300 mg/dL (70-99); Magnesium 3.0 mg/dL (1.5-2.2); Potassium 4.8 mmol/L (3.3-5.1)
[2025-05-05] MEDS: 0.9% Saline Lock 10 ML Syringe IV ×4 (00:22→08:41)
[2025-05-05 00:35] LABS: Anion Gap 23 (5-15); Carbon Dioxide 5.9 mmol/L (21.0-32.0)
[2025-05-05 00:36] LABS: Osmolality, Serum 320 mOsm/KG (275-295)
[2025-05-05 01:14] LABS: Base Excess -22 mmol/L (-2 to +2); FI02 50.0; PEEP 5; PO2 105 mmHG (75-100); RR 24; SITE L Radial; SO2 96 % (95-99); Time Given 01:10:28
[2025-05-05] MEDS: Sodium Bicarbonate 8.4% 50 ML Syringe 150 MEQ IV (01:30)
[2025-05-05] MEDS: LACTATED RINGERS 500 ML 999 ML IV (01:31)
[2025-05-05 03:30] LABS: Hematocrit 30.8 % (40-54); Hemoglobin 10.8 g/dL (13.0-16.5); Mean Corp Hgb Conc 35.1 g/dL (32-36); Mean Corpuscular Volume 78.4 fL (80-94); Mean Platelet Vol. 10.7 fl (6.2-12.0); Platelet Count 221 K/mm3 (150-450); RBC Distribution Width CV 15.8 % (11.6-14.6); RBC Distribution Width SD 45.2 fl (35.1-43.9); Red Blood Count 3.93 M/mm3 (4.6-6.2); White Blood Count 20.7 K/mm3 (4.4-11.0)
[2025-05-05 03:58] LABS: Magnesium 2.6 mg/dL (1.5-2.2)
[2025-05-05 04:00] LABS: Albumin, Serum 2.6 g/dL (3.5-5.0); Anion Gap 24 (5-15); BUN 86 mg/dL (4-19); BUN/Creat Ratio 18.7 RATIO (10-20); Calcium,Total 6.9 mg/dL (7.6-11.0); Chloride 102 mmol/L (98-108); Estimated Creatinine Clearance 22.74 ml/min (50-250); Glucose 223 mg/dL (70-99); Potassium 3.9 mmol/L (3.3-5.1)
[2025-05-05 04:13] LABS: Carbon Dioxide 8.4 mmol/L (21.0-32.0)
[2025-05-05] MEDS: PUREFLOW B SOLUTION 4K 5,000 ML BAG 9 BAG PF ×3 (04:52→18:18)
[2025-05-05] MEDS: TITRATION PARAMETER CHANGE 1 EACH IV (05:54)
[2025-05-05] MEDS: Piperacil/Tazobactam 3.375 GM in 0.9% Normal Saline (50mL MB+) 50 ML IV ×3 (05:59→22:55)
[2025-05-05] MEDS: Propofol 10MG/Ml 1,000 MG/100 ML Bottle 10.3 MG CONT INF (07:23)
--- NOTE | 2025-05-05 07:41 | PCM.PN.HOSP ---
Reason for Visit Chief Complaint: Shortness of breath Objective Data Objective Data Vital Signs: Vital Signs Temp Pulse Resp BP Pulse Ox O2 Del Method O2 Flow Rate 98.0 F 71 24 H 119/49 L 100 Mechanical Ventilator 2 05/05/25 07:00 05/05/25 07:00 05/05/25 07:00 05/05/25 07:00 05/05/25 07:00 05/05/25 07:00 05/04/25 14:16 FiO2 30 05/05/25 07:00 Oxygen Flow Rate (L/min) 2 Oxygen Delivery Method Mechanical Ventilator Weight: 251 lb 8.759 oz Body Mass Index (BMI) 34.0 Intake & Output: Intake and Output for Last 24 Hours 05/03/25 05/04/25 05/05/25 23:59 23:59 23:59 Intake Total 3856.77 / 3861.10 810.10 / 810.10 Output Total 972 / 1039 866 / 866 Balance 2884.77 / 2822.10 -55.90 / -55.90 Lab / Micro Data 05/05/25 03:15 05/05/25 08:30 Labs: Laboratory Results - last 24 hr 05/04/25 12:57: POC Glucose 111 H 05/04/25 13:00: WBC 36.1 H*, RBC 4.75, Hgb 13.3, Hct 39.3 L, MCV 82.7, MCH 28.0, MCHC 33.8, RDW Std Deviation 49.9 H, RDW Coeff of Reinaldo 16.3 H, Plt Count 304, MPV 10.6, Immature Gran % (Auto) 1.800 H, Neut % (Auto) 87.9 H, Lymph % (Auto) 2.2 L, Hand % (Auto) 7.2, Eos % (Auto) 0.4, Baso % (Auto) 0.5, Absolute Neuts (auto) 31.8 H, Absolute Lymphs (auto) 0.78 L, Nucleated RBC % 0, Differential Comment SCANNED, Diff Path Review November, Platelet Estimate ADEQUATE, Sodium 131 L, Potassium 4.9, Chloride 99, Carbon Dioxide 2.9 L*, Anion Gap 29 H, BUN 97 H, Creatinine 5.48 H, Estim Creat Clear Calc 19.15 L, Est GFR (MDRD) Non-Af 11 L, BUN/Creatinine Ratio 17.7, Glucose 150 H, Calcium 8.2, Troponin T High Sens 24 H 05/04/25 14:00: Lactic Acid 2.2 H* 05/04/25 14:31: Urine Color Yellow, Urine Clarity Sl. Cloudy, Urine pH 6.0, Ur Specific [place] 1.020, Urine Protein 500 H, Urine Glucose (UA) Normal, Urine Ketones 5 H, Urine Occult Blood 250 H, Urine Nitrite Negative, Urine Bilirubin Negative, Urine Urobilinogen Normal, Ur Leukocyte Esterase 500 H, Urine RBC 25-50 SEEN, Urine WBC 25-50 SEEN, Ur Squamous Epith Cells 0 SEEN, Urine Bacteria 1+, Urine Mucus 0 SEEN 05/04/25 15:13: Troponin T Hi Sens 2 Hr 23 H 05/04/25 16:33: Ur Random Sodium 78, Urine Creatinine 56.00, Urine Opiates Screen NEGATIVE, U Buprenorphine Qual NEGATIVE, Ur Oxycodone Screen NEGATIVE, Urine Methadone Screen NEGATIVE, Urine Fentanyl Screen NEGATIVE, Ur Barbiturates Screen NEGATIVE, Ur Phencyclidine Scrn NEGATIVE, Ur Amphetamines Screen NEGATIVE, U Benzodiazepines Scrn NEGATIVE, Urine Cocaine Screen NEGATIVE, U Cannabinoids Screen NEGATIVE 05/04/25 16:39: Sodium 133, Potassium 4.8, Chloride 101, Carbon Dioxide 4.4 L*, Anion Gap 27 H, BUN 98 H, Creatinine 5.46 H, Estim Creat Clear Calc 19.06 L, Est GFR (MDRD) Non-Af 11 L, BUN/Creatinine Ratio 17.9, Glucose 227 H, Hemoglobin A1c 6.6 H, Calcium 7.2 L, Total Creatine Kinase 76, Triglycerides 258 H, b-Hydroxybutyric mmol/L 2.9 H, Procalcitonin 26.50 H 05/04/25 17:23: PT 21.7 H, INR 1.9, APTT 32.4 05/04/25 17:35: Troponin T Hi Sens 4Hr 26 H 05/04/25 18:03: POC Glucose 253 H 05/04/25 18:55: Lactic Acid 1.1, Ethyl Alcohol < 10.1 05/04/25 20:55: Sodium 129 L, Potassium 5.1, Chloride 100, Carbon Dioxide 5.4 L*, Anion Gap 24 H, BUN 103 H*, Creatinine 5.74 H, Estim Creat Clear Calc 18.22 L, Est GFR (MDRD) Non-Af 11 L, BUN/Creatinine Ratio 17.9, Glucose 355 H, Calcium 7.0 L 05/04/25 23:28: POC Glucose 261 H 05/04/25 23:40: Sodium 131 L, Potassium 4.8, Chloride 101, Carbon Dioxide 5.9 L*, Anion Gap 23 H, BUN 96 H, Creatinine 5.16 H, Estim Creat Clear Calc 20.27 L, Est GFR (MDRD) Non-Af 12 L, BUN/Creatinine Ratio 18.5, Glucose 300 H, Serum Osmolality 320 H, Calcium 7.0 L, Phosphorus 8.2 H, Magnesium 3.0 H, TSH 0.368 05/05/25 03:15: WBC 20.7 H, RBC 3.93 L, Hgb 10.8 L, Hct 30.8 L, MCV 78.4 L D, MCH 27.5, MCHC 35.1, RDW Std Deviation 45.2 H, RDW Coeff of Reinaldo 15.8 H, Plt Count 221, MPV 10.7, Sodium 134, Potassium 3.9, Chloride 102, Carbon Dioxide 8.4 L*, Anion Gap 24 H, BUN 86 H, Creatinine 4.60 H, Estim Creat Clear Calc 22.74 L, Est GFR (MDRD) Non-Af 14 L, BUN/Creatinine Ratio 18.7, Glucose 223 H, Lactic Acid < 1.0, Calcium 6.9 L, Phosphorus 6.4 H, Magnesium 2.6 H, Albumin 2.6 L 05/05/25 05:52: POC Glucose 172 H Micro: Microbiology 05/04/25 14:00 Blood Culture (Wb) - Anticubital Right Blood Culture - Preliminary 05/04/25 14:05 Blood Culture (Wb) - Anticubital Left Blood Culture - Preliminary 05/04/25 16:33 Urine, Clean Catch Legionella Antigen - Final 05/04/25 16:33 Urine, Clean Catch Streptococcus pneumoniae Antigen (M - Final 05/04/25 19:16 Nasal Secretion MRSA (PCR) - Final 05/04/25 16:29 Mucosa - Nose Respiratory Panel (PCR) - Final 05/04/25 14:06 Mucosa - Nose SARS-CoV-2, Influenza & RSV (PCR) - Final ABG Data ABG results: ABG 05/04/25 05/04/25 05/04/25 13:11 15:46 18:07 Specimen Type ART ART ART Sample Site R Brach R Brach R Brach pH 6.93 L* 6.80 L* 6.89 L* Bicarbonate Actual 1.5 L 4.2 L 6.2 L Total CO2 < 5 5 7 Base Excess < -30 L < -30 L -27 L O2 Saturation 97 89 L 86 L O2 % 3.0 35.0 30.0 ABG pCO2 7.2 L* 26.9 L 32.5 L ABG pO2 148 H 105 H 86 Satish Test Positive Respiration Rate 12 24 O2 Delivery Device Cannula Adult Vent Adult Vent Vent Mode Not entered AC AC Tidal Volume 450.0 450.0 POC PEEP 5 5 Crit Call To/Read Back Yes Yes Yes Blood Gas Notified Whom alberto huggins Blood Gas Notified Time 13:13:02 15:47:52 18:08:41 05/05/25 01:07 Specimen Type ART Sample Site L Radial pH 7.13 L* Bicarbonate Actual 7.0 L Total CO2 8 Base Excess -22 L O2 Saturation 96 O2 % 50.0 ABG pCO2 21.0 L ABG pO2 105 H Satish Test N/A Respiration Rate 24 O2 Delivery Device Adult Vent Vent Mode AC Tidal Volume 600.0 POC PEEP 5 Crit Call To/Read Back Yes Blood Gas Notified Whom Alberto physician Blood Gas Notified Time 01:10:28 Radiography Diagnostic Testing: Radiology Impression Chest X-Ray 05/04/25 13:25 IMPRESSION: Advanced right glenohumeral joint osteoarthritic changes are seen, with associated severe joint narrowing and osseous reactive changes Prior right rib fractures noted. Blunting of the right costophrenic angle is seen, possibly due to chronic pleural thickening or small right pleural effusion. No left pleural effusion is noted. At least mild degenerative changes of the visualized spine are seen. Lungs are hypoinflated. No pneumothorax is noted. No evidence of pulmonary edema. The cardiomediastinal silhouette is within the normal range. Reading Location: [facility] Chest X-Ray 05/04/25 14:40 IMPRESSION: Endotracheal tube position unchanged. Nasogastric tube seen with tip projecting of the distal esophagus. Repositioning should be considered. Lungs remain hypoinflated and unchanged. No pleural effusion or pneumothorax is noted. The cardiomediastinal silhouette is stable, without evidence of cardiomegaly. Reading Location: [place] [id number] Chest X-Ray 05/04/25 14:43 IMPRESSION: Interval advancement of the nasogastric tube, but still with tip likely in the distal esophagus. The remainder of the examination is unchanged. Reading Location: [place] [id number] Chest X-Ray 05/04/25 14:45 IMPRESSION: Interval advancement of the endotracheal tube is seen, now proximally 3 cm above the marine. Nasogastric tube is partially seen, but with proximal port clearly overlying the distal esophagus. The remainder of the examination is unchanged. Reading Location: [place] [id number] Abdomen/Pelvis CT 05/04/25 15:02 IMPRESSION: Bilateral small pleural effusion with adjacent atelectasis. Additionally there are patchy scattered opacities within bilateral lung. Findings are concerning for underlying infectious/inflammatory process. There is widespread colonic diverticulosis. Mild stranding is visualized along multiple diverticula within right ascending colon. Findings could be related to early developing acute diverticulitis. Small nonobstructing right lower renal calculus. Diffuse hepatic steatosis. Reading Location: [id number] Chest X-Ray 05/04/25 19:56 IMPRESSION: As above. Reading Location: [id number] Rhythm Strip Rhythm Strip: Sinus Rhythm Rate: 72 Ectopy: None Physical Exam Narrative Seen and examined. Patient is intubated. On FiO2 30%. BP 114/47. Heart rate 70 pulmonary. But later on patient had CVC catheter in right femoral vein and started on Levophed drip. Physical exam General: Sedated on propofol and fentanyl HEENT: Atraumatic. Normocephalic. Oral: ETT and OG tube Neck: Supple, No JVD, Negative Carotid Bruits Chest wall/Lungs: Right IJ dialysis catheter. Air entry diminished in bilateral lung bases. No crepitation/rhonchi Cardiovascular: Regular sinus rhythm. Systolic murmur with radiation to carotid Abdomen: Bowel Sounds sluggish soft, Non Tender, Non-Distended : Anuria. Rasmussen catheter no urine. On CRRT. No suprapubic tenderness. Extremities: No edema, Capillary Refill Less than 3 Seconds Skin: No rashes, No breakdown Musculoskeletal: No Tenderness to Palpation of Joints or Extremities Neurological: Neuroexam unobtainable significant Psych/Mental Status: Sedated Assessment & Plan Assessment/Plan (1) Acute renal failure: (2) High anion gap metabolic acidosis: (3) Acute respiratory failure: PLAN: Plan Patient is a 60-year-old male who presented [facility] ED on 05/04/2025 with worsening shortness of breath. 1. Acute hypoxic respiratory failure possible secondary to community-acquired pneumonia: Patient being admitted to ICU. On ventilator. FiO2 30%/450/12/5. Patient is on respiratory rate 24/min. CT abdomen shows small bilateral pleural effusion and patchy scattered opacity within bilateral lungs. Network Control Operators Supervisor is consulted. Vent management as per mining helper 2. Septic shock suspected secondary to community-acquired pneumonia probably from GNR bacteremia and Staph aureus pneumonia: The patient presented with sepsis with clinical indicators of leukocytosis due to community-acquired pneumonia with acute sepsis-related organ dysfunction as evidenced by elevated lactic acid, profound anion gap metabolic acidosis, Acute hypoxic respiratory failure intubation, acute kidney injury and coagulopathy. Empirically on IV vancomycin and Zosyn Chest x-ray initially reviewed and shows mild bilateral lower lungs infiltrates Both blood culture bottles aerobic anaerobic growing GNR. Urine culture prelim positive E. coli more than 100,000 colonies. Gram stain sputum culture Staph aureus 3+. Respiratory panel and urinary antigens and MRSA PCR negative. 2. Acute renal failure with high anion gap metabolic acidosis ? Nephrology consulted. Creatinine 5.48, BUN 97 on admit. Baseline creatinine appears to be around 1.0. Initial ABG with pH 6.93, pCO2 7. Bicarb 2.9 on BMP. 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 Mild lactic acid elevation of 2.2. Beta hydroxybutyrate only mildly elevated at 2.9. In ED, patient received 2 L of IV fluid bolus, Rasmussen catheter was inserted but still minimal urine/anuria. Repeat ABG pH 6.8. Had 2 Amp of bicarb and initiated bicarb drip. Farm Equipment Engine Mechanic consulted. On hemodialysis CRRT CT abdomen was done which shows bilateral small pleural effusion with adjacent atelectasis, patchy scattered opacity within bilateral lungs concerning for underlying infectious or inflammatory process. Widespread colonic diverticulosis with mild stranding on right ascending colon suspicious for early evolving acute diverticulitis. Small nonobstructing right lower lobe renal calculus. Bilateral perinephric stranding right more than left 3. Type 2 diabetes mellitus ? Blood glucose 150 on admit. A1c 6.6%. Hold home metformin. Accu-Chek before meals and at bedtime with Humalog sliding scale coverage and hypoglycemia protocol. 4. Tobacco dependence ? Smokes about 1 pack of cigarettes daily. Has smoked for many years. Nicotine replacement therapy will be available if needed and will need to discuss cessation with patient on discharge. 5. Class I obesity ? BMI 33 on admit. Complicates hospital course and care. DVT prophylaxis: Heparin subcu CODE STATUS: Full code, verified Charges/Coding Visit Charges Inpatient E&M: 57153 Subs Hosp L3
--- NOTE | 2025-05-05 07:58 | PCM.PN.INT ---
Assessment & Plan Assessment/Plan (1) Acute respiratory failure: (2) High anion gap metabolic acidosis: (3) Acute respiratory alkalosis: PLAN: Plan RECOMMENDATIONS: 1. Continue assist-control mode of mechanical ventilation. Wean FiO2 and PEEP as tolerated. 2. Serial chemistry and ABG monitoring. 3. Continue CRRT support. 4. Obtain follow-up beta hydroxybutyrate, and if still elevated, will initiate insulin infusion. 5. Continue broad-spectrum antimicrobials. 6. Initiate appropriate ICU prophylaxis. IMPRESSIONS: 1. Septic shock The patient initially presented to the hospital with a profound metabolic acidosis and inability to compensate from a respiratory perspective. He does have evidence of gram-negative bacteremia with concern for urinary source, along with Staphylococcus aureus and sputum, concerning for pneumonia. The patient has been fluid resuscitated and will remain on vasopressor support to maintain a mean arterial pressure at or above 65 mmHg. Will continue empiric broad-spectrum antimicrobials, pending finalized cultures. 2. Acute hypoxemic respiratory failure/acute respiratory alkalosis As noted above, the patient presented with a significant anion gap metabolic acidosis in the setting of BAR and was attempting to compensate from a respiratory perspective. Ultimately, the patient was emergently intubated in the emergency department. There were questionable infiltrates noted on imaging. In addition, the patient has Staphylococcus aureus currently growing from his sputum culture. Therefore, underlying pneumonia is certainly a possibility. The patient will be continued on antibiotics as noted above. Once the patient's underlying metabolic derangements have been adequately addressed, we will proceed with spontaneous awakening and breathing trials. 3. Acute kidney injury/high anion gap metabolic acidosis Exact precipitating etiology is not entirely clear. Nevertheless, I do suspect that the presentation is likely multifactorial. The patient is clearly in septic shock with questionable DKA. Will plan to recheck his beta hydroxybutyrate level, and if still elevated, will initiate insulin therapy. In the interim, nephrology is currently following to assist with hemodialysis needs. Close attention will need to be paid to the patient's chemistry profile and arterial blood gas results. With supportive care, the patient's acid-base status appears to be slowly improving. 4. History of diabetes mellitus/history of alcohol and tobacco dependency/questionable asthma/obesity Complicates care, management, recovery and prognosis. Continue supportive measures as noted above. Will hold on initiation of tube feeding, given concerns for possible DKA. TIME: 42 minutes of critical care time, independent of procedures, was spent addressing the patient's septic shock, acute hypoxemic respiratory failure, acute kidney injury, severe anion gap metabolic acidosis, review of all data and collaboration with the care team. Subjective Subjective The patient was seen and examined at the bedside this morning. Events from the last 24 hours have been reviewed. The patient is currently afebrile and hemodynamically stable on Levophed at 10 mcg/min. The patient is currently tolerating CRRT. Ventilator parameters are stable with an FiO2 requirement of 30%. The patient is currently documented to be overall net +2.9 L for the hospitalization. Laboratory evaluation this morning was notable for a white blood cell count of 20,000. Hemoglobin was noted to be 10.8 g/dL with a platelet count of 221,000. Arterial blood gas was notable for a pH of 7.13 with a pCO2 of 21 and pO2 of 105. Chemistry profile was notable for a bicarbonate of 11 with creatinine of 4.02. The patient's brother did confirm a history of diabetes mellitus along with a longstanding history of alcohol and tobacco dependency. Objective Data Objective Data The patient's most recent lab work, culture data and imaging studies have all been personally reviewed. Urine culture was positive for presumptive E. coli. Sputum cultures currently demonstrating growth of 3+ Staphylococcus aureus. Vital Signs: Vital Signs Temp Pulse Resp BP Pulse Ox O2 Del Method O2 Flow Rate 98.0 F 71 24 H 119/49 L 100 Mechanical Ventilator 2 05/05/25 07:00 05/05/25 07:00 05/05/25 07:00 05/05/25 07:00 05/05/25 07:00 05/05/25 07:00 05/04/25 14:16 FiO2 30 05/05/25 07:00 Oxygen Flow Rate (L/min) 2 Oxygen Delivery Method Mechanical Ventilator Weight: 251 lb 8.759 oz Body Mass Index (BMI) 34.0 Intake & Output: Intake and Output for Last 24 Hours 05/03/25 05/04/25 05/05/25 23:59 23:59 23:59 Intake Total 3856.77 / 3861.10 810.10 / 810.10 Output Total 972 / 1039 866 / 866 Balance 2884.77 / 2822.10 -55.90 / -55.90 Lab / Micro Data Attestation: I reviewed the patient's lab results. 05/05/25 03:15 05/05/25 08:30 Labs: Laboratory Results - last 24 hr 05/04/25 12:57: POC Glucose 111 H 05/04/25 13:00: WBC 36.1 H*, RBC 4.75, Hgb 13.3, Hct 39.3 L, MCV 82.7, MCH 28.0, MCHC 33.8, RDW Std Deviation 49.9 H, RDW Coeff of Reinaldo 16.3 H, Plt Count 304, MPV 10.6, Immature Gran % (Auto) 1.800 H, Neut % (Auto) 87.9 H, Lymph % (Auto) 2.2 L, [place] % (Auto) 7.2, Eos % (Auto) 0.4, Baso % (Auto) 0.5, Absolute Neuts (auto) 31.8 H, Absolute Lymphs (auto) 0.78 L, Nucleated RBC % 0, Differential Comment SCANNED, Diff Path Review November, Platelet Estimate ADEQUATE, Sodium 131 L, Potassium 4.9, Chloride 99, Carbon Dioxide 2.9 L*, Anion Gap 29 H, BUN 97 H, Creatinine 5.48 H, Estim Creat Clear Calc 19.15 L, Est GFR (MDRD) Non-Af 11 L, BUN/Creatinine Ratio 17.7, Glucose 150 H, Calcium 8.2, Troponin T High Sens 24 H 05/04/25 14:00: Lactic Acid 2.2 H* 05/04/25 14:31: Urine Color Yellow, Urine Clarity Sl. Cloudy, Urine pH 6.0, Ur Specific [place] 1.020, Urine Protein 500 H, Urine Glucose (UA) Normal, Urine Ketones 5 H, Urine Occult Blood 250 H, Urine Nitrite Negative, Urine Bilirubin Negative, Urine Urobilinogen Normal, Ur Leukocyte Esterase 500 H, Urine RBC 25-50 SEEN, Urine WBC 25-50 SEEN, Ur Squamous Epith Cells 0 SEEN, Urine Bacteria 1+, Urine Mucus 0 SEEN 05/04/25 15:13: Troponin T Hi Sens 2 Hr 23 H 05/04/25 16:33: Ur Random Sodium 78, Urine Creatinine 56.00, Urine Opiates Screen NEGATIVE, U Buprenorphine Qual NEGATIVE, Ur Oxycodone Screen NEGATIVE, Urine Methadone Screen NEGATIVE, Urine Fentanyl Screen NEGATIVE, Ur Barbiturates Screen NEGATIVE, Ur Phencyclidine Scrn NEGATIVE, Ur Amphetamines Screen NEGATIVE, U Benzodiazepines Scrn NEGATIVE, Urine Cocaine Screen NEGATIVE, U Cannabinoids Screen NEGATIVE 05/04/25 16:39: Sodium 133, Potassium 4.8, Chloride 101, Carbon Dioxide 4.4 L*, Anion Gap 27 H, BUN 98 H, Creatinine 5.46 H, Estim Creat Clear Calc 19.06 L, Est GFR (MDRD) Non-Af 11 L, BUN/Creatinine Ratio 17.9, Glucose 227 H, Hemoglobin A1c 6.6 H, Calcium 7.2 L, Total Creatine Kinase 76, Triglycerides 258 H, b-Hydroxybutyric mmol/L 2.9 H, Procalcitonin 26.50 H 05/04/25 17:23: PT 21.7 H, INR 1.9, APTT 32.4 05/04/25 17:35: Troponin T Hi Sens 4Hr 26 H 05/04/25 18:03: POC Glucose 253 H 05/04/25 18:55: Lactic Acid 1.1, Ethyl Alcohol < 10.1 05/04/25 20:55: Sodium 129 L, Potassium 5.1, Chloride 100, Carbon Dioxide 5.4 L*, Anion Gap 24 H, BUN 103 H*, Creatinine 5.74 H, Estim Creat Clear Calc 18.22 L, Est GFR (MDRD) Non-Af 11 L, BUN/Creatinine Ratio 17.9, Glucose 355 H, Calcium 7.0 L 05/04/25 23:28: POC Glucose 261 H 05/04/25 23:40: Sodium 131 L, Potassium 4.8, Chloride 101, Carbon Dioxide 5.9 L*, Anion Gap 23 H, BUN 96 H, Creatinine 5.16 H, Estim Creat Clear Calc 20.27 L, Est GFR (MDRD) Non-Af 12 L, BUN/Creatinine Ratio 18.5, Glucose 300 H, Serum Osmolality 320 H, Calcium 7.0 L, Phosphorus 8.2 H, Magnesium 3.0 H, TSH 0.368 05/05/25 03:15: WBC 20.7 H, RBC 3.93 L, Hgb 10.8 L, Hct 30.8 L, MCV 78.4 L D, MCH 27.5, MCHC 35.1, RDW Std Deviation 45.2 H, RDW Coeff of Reinaldo 15.8 H, Plt Count 221, MPV 10.7, Sodium 134, Potassium 3.9, Chloride 102, Carbon Dioxide 8.4 L*, Anion Gap 24 H, BUN 86 H, Creatinine 4.60 H, Estim Creat Clear Calc 22.74 L, Est GFR (MDRD) Non-Af 14 L, BUN/Creatinine Ratio 18.7, Glucose 223 H, Lactic Acid < 1.0, Calcium 6.9 L, Phosphorus 6.4 H, Magnesium 2.6 H, Albumin 2.6 L 05/05/25 05:52: POC Glucose 172 H Micro: Microbiology 05/04/25 14:00 Blood Culture (Wb) - Anticubital Right Blood Culture - Preliminary 05/04/25 14:05 Blood Culture (Wb) - Anticubital Left Blood Culture - Preliminary 05/04/25 16:33 Urine, Clean Catch Legionella Antigen - Final 05/04/25 16:33 Urine, Clean Catch Streptococcus pneumoniae Antigen (M - Final 05/04/25 19:16 Nasal Secretion MRSA (PCR) - Final 05/04/25 16:29 Mucosa - Nose Respiratory Panel (PCR) - Final 05/04/25 14:06 Mucosa - Nose SARS-CoV-2, Influenza & RSV (PCR) - Final ABG Data ABG results: ABG 05/04/25 05/04/25 05/04/25 13:11 15:46 18:07 Specimen Type ART ART ART Sample Site R Brach R Brach R Brach pH 6.93 L* 6.80 L* 6.89 L* Bicarbonate Actual 1.5 L 4.2 L 6.2 L Total CO2 < 5 5 7 Base Excess < -30 L < -30 L -27 L O2 Saturation 97 89 L 86 L O2 % 3.0 35.0 30.0 ABG pCO2 7.2 L* 26.9 L 32.5 L ABG pO2 148 H 105 H 86 Satish Test Positive Respiration Rate 12 24 O2 Delivery Device Cannula Adult Vent Adult Vent Vent Mode Not entered AC AC Tidal Volume 450.0 450.0 POC PEEP 5 5 Crit Call To/Read Back Yes Yes Yes Blood Gas Notified Whom alberto huggins Blood Gas Notified Time 13:13:02 15:47:52 18:08:41 05/05/25 01:07 Specimen Type ART Sample Site L Radial pH 7.13 L* Bicarbonate Actual 7.0 L Total CO2 8 Base Excess -22 L O2 Saturation 96 O2 % 50.0 ABG pCO2 21.0 L ABG pO2 105 H Satish Test N/A Respiration Rate 24 O2 Delivery Device Adult Vent Vent Mode AC Tidal Volume 600.0 POC PEEP 5 Crit Call To/Read Back Yes Blood Gas Notified Whom Tele physician Blood Gas Notified Time 01:10:28 Radiography Diagnostic Testing: Radiology Impression Chest X-Ray 05/04/25 13:25 IMPRESSION: Advanced right glenohumeral joint osteoarthritic changes are seen, with associated severe joint narrowing and osseous reactive changes Prior right rib fractures noted. Blunting of the right costophrenic angle is seen, possibly due to chronic pleural thickening or small right pleural effusion. No left pleural effusion is noted. At least mild degenerative changes of the visualized spine are seen. Lungs are hypoinflated. No pneumothorax is noted. No evidence of pulmonary edema. The cardiomediastinal silhouette is within the normal range. Reading Location: [place] [address] Chest X-Ray 05/04/25 14:40 IMPRESSION: Endotracheal tube position unchanged. Nasogastric tube seen with tip projecting of the distal esophagus. Repositioning should be considered. Lungs remain hypoinflated and unchanged. No pleural effusion or pneumothorax is noted. The cardiomediastinal silhouette is stable, without evidence of cardiomegaly. Reading Location: [place] [address] Chest X-Ray 05/04/25 14:43 IMPRESSION: Interval advancement of the nasogastric tube, but still with tip likely in the distal esophagus. The remainder of the examination is unchanged. Reading Location: [place] [address] Chest X-Ray 05/04/25 14:45 IMPRESSION: Interval advancement of the endotracheal tube is seen, now proximally 3 cm above the marine. Nasogastric tube is partially seen, but with proximal port clearly overlying the distal esophagus. The remainder of the examination is unchanged. Reading Location: [place] [address] Abdomen/Pelvis CT 05/04/25 15:02 IMPRESSION: Bilateral small pleural effusion with adjacent atelectasis. Additionally there are patchy scattered opacities within bilateral lung. Findings are concerning for underlying infectious/inflammatory process. There is widespread colonic diverticulosis. Mild stranding is visualized along multiple diverticula within right ascending colon. Findings could be related to early developing acute diverticulitis. Small nonobstructing right lower renal calculus. Diffuse hepatic steatosis. Reading Location: [id number] Chest X-Ray 05/04/25 19:56 IMPRESSION: As above. Reading Location: [address] Rhythm Strip Rhythm Strip: Sinus Rhythm Rate: 72 Ectopy: None Physical Exam Const Constitutional Narrative: Intubated, sedated and mechanically ventilated. Obese. General Appearance: ill appearing HEENT normocephalic and head/scalp atraumatic Mouth: endotracheal tube in place and OG tube in place Eyes EOMs intact bilaterally and conjunctivae normal Neck supple General: trachea midline and CVC in place Chest inspection of chest normal Resp Auscultation: rales and diminished lung sounds Cardio regular rate and regular rhythm GI normal to inspection, nondistended, normoactive bowel sounds Extremity no clubbing, cyanosis or edema Skin no rashes or lesions noted Neuro Sensorium / Orientation: sedated on vent Charges/Coding Procedures Hospitalists Procedures: [id number] Critical Care 1st Hr
[2025-05-05] MEDS: Vancomycin HCl 1,000 MG in 0.9% Normal Saline (250mL Bag) 250 ML 250 MG IV ×2 (08:35→20:15)
[2025-05-05] MEDS: Chlorhexidine 15 ML PO ×2 (08:39→22:30)
[2025-05-05 09:23] LABS: Albumin, Serum 2.6 g/dL (3.5-5.0); Anion Gap 22 (5-15); BUN 74 mg/dL (4-19); BUN/Creat Ratio 18.5 RATIO (10-20); Calcium,Total 7.2 mg/dL (7.6-11.0); Carbon Dioxide 10.8 mmol/L (21.0-32.0); Chloride 102 mmol/L (98-108); Estimated Creatinine Clearance 26.12 ml/min (50-250); Glucose 171 mg/dL (70-99); Magnesium 2.5 mg/dL (1.5-2.2); Potassium 3.7 mmol/L (3.3-5.1)
[2025-05-05] MEDS: fentaNYL drip 100 ML 7.5 MCG CONT INF (09:25)
[2025-05-05 10:11] LABS: BETA-HYDROXYBUTYRATE 1.7 mmol/L (0.0-0.3)
--- NOTE | 2025-05-05 10:36 | PCM.OP.PRO2 ---
Procedures Hospitalists Procedures: [id number] Insert Non-tunnel CV Cath Bedside Procedural Bedside Procedure Information Date of Procedure: 05/05/25 Description of procedure: Central Venous Catheter Indication: Septic shock Consent was obtained from: Brother A time-out was completed verifying correct patient, procedure, site, positioning, and special equipment if applicable. The patient was placed in a dependent position appropriate for central line placement based on the vein to be cannulated. The patient's right groin was prepped and draped in a sterile fashion. 1% lidocaine was used to anesthetize the surrounding skin area. A triple-lumen catheter was introduced into the right femoral vein using the Seldinger technique and under ultrasound guidance. The catheter was threaded smoothly over the guidewire and appropriate blood return was obtained. Each lumen of the catheter was evacuated of air and flushed with sterile saline. The catheter was then sutured in place to the skin and a sterile dressing applied. ULTRASOUND GUIDANCE STATEMENT (Vascular Access): I performed ultrasound image acquisition and interpretation for needle placement during the procedure. The vessel was identified and found to be free of thrombosis by compression technique. A safe point of entry was marked at the skin in an angle for axis was determined. The needle was guided by obtaining free-flowing fluid and by real-time visualization.
[2025-05-05 11:24] LABS: Allen Test Positive; Base Excess -13 mmol/L (-2 to +2); FI02 30.0; PEEP 5; PO2 91 mmHG (75-100); RR 24; SITE L Radial; SO2 97 % (95-99)
[2025-05-05] MEDS: Insulin Lispro 100 UNIT in 0.9% Normal Saline (100mL Bag) 99 ML CONT INF (11:50)
[2025-05-05] MEDS: Norepinephrine 8 MG in 0.9% Normal Saline (250mL Bag) 242 ML 18.8 MG CONT INF (11:53)
[2025-05-05] MEDS: Dext 5%-0.45% NS 1,000 ML 150 ML IV ×2 (12:05→18:20)
[2025-05-05] MEDS: Pantoprazole Sodium 40 MG in 0.9% Normal Saline (100mL MB+) 100 ML 300 MG IV ×2 (12:24→23:35)
--- NOTE | 2025-05-05 12:26 | CON.PCM.RE_ITS ---
Assessment & Plan Assessment/Plan (1) High anion gap metabolic acidosis: PLAN: Significantly elevated gap. Lactate normal. Renal failure. His beta hydroxybutyrate is also elevated. Blood glucose values noted. Discussed with ICU attending. Initially there was some concern for toxic alcohol ingestion but it appears unlikely as per history. Even if he has it, CRRT should clear it. Discussed with hospitalist on admission. (2) BAR (acute kidney injury): PLAN: Prior to this admission, last known creatinine was 1.5. Came with a creatinine of more than 5. CT abdomen without any hydronephrosis. Urine analysis showed protein and blood but this is likely a Rogel sample. Will send serologies just in case. Possibly BAR due to ATN in the setting of severe acidosis and suspected sepsis. Started on CRRT overnight mostly due to acidosis, tolerating well. Continue same. This morning he is on 10 mcg of Levophed. HPI Consult Data Date of Consult: 05/05/25 HPI Narrative Reason for Consultation: bar HPI Narrative: NOAH DOMINGUEZ, is a 60 M who presents To the hospital with shortness of breath. Nephrology on consultation in view of acute renal failure and acidosis. He is currently intubated, most of the history is obtained from the charts and discussion with admitting hospitalist. Apparently he has had respiratory complaints, saw primary care physician, was given a prescription for azithromycin. Came into the ER with worsening complaints. Intubated in the ER. I was called yesterday evening due to persistent acidosis with a pH of 6.9. Lactate level was normal. He did have renal failure. Prior to this, last known creatinine was 1.5. CT abdomen did not show any hydronephrosis. He was started on CRRT emergently overnight due to severe acidosis. [facility] Medical History Asthma Diabetes Home Medications ?Medication ?Instructions ?Recorded ?Last Taken ?Type albuterol sulfate 90 mcg/actuation 2 puff inhalation Q 6H PRN 01/08/21 Unknown History aerosol inhaler shortness of breath or wheez ing metformin 500 mg tablet 500 mg PO BID diabetes 01/08 Unknown History sildenafil 25 mg tablet 25 mg PO DAILY PRN 11/17/22 Unknown History Allergy/AdvReac Type Severity Reaction Status Date / Time citalopram Allergy Mild Other Verified 05/04/25 15:15 Sulfa (Sulfonamide Allergy Unknown unknown Verified 05/04/25 15:15 Antibiotics) Family History Grandfather Diabetes Surgical History History of umbilical hernia repair Social History Smoking Status: Heavy Smoker (>10/day) alcohol intake: current alcohol intake frequency: a few times a week ROS Review of Systems ROS Unobtainable: due to endotracheal tube Physical Exam Narrative no obvious distress no pallor no icterus no JVD s1s2 no murmurs lungs clear abdomen soft no organomegaly no edema no cyanosis rogel + Lab / Micro Data 05/05/25 03:15 05/05/25 08:30 Labs: Laboratory Results - last 24 hr 05/04/25 12:57: POC Glucose 111 H 05/04/25 13:00: WBC 36.1 H*, RBC 4.75, Hgb 13.3, Hct 39.3 L, MCV 82.7, MCH 28.0, MCHC 33.8, RDW Std Deviation 49.9 H, RDW Coeff of Reinaldo 16.3 H, Plt Count 304, MPV 10.6, Immature Gran % (Auto) 1.800 H, Neut % (Auto) 87.9 H, Lymph % (Auto) 2.2 L , Baxter % (Auto) 7.2, Eos % (Auto) 0.4, Baso % (Auto) 0.5, Absolute Neuts (auto) 31.8 H, Absolute Lymphs (auto) 0.78 L, Nucleated RBC % 0, Differential Comment SCANNED, Diff Path Review May foll, Platelet Estimate ADEQUATE, Sodium 131 L, Potassium 4.9, Chloride 99, Carbon Dioxide 2.9 L*, Anion Gap 29 H, BUN 97 H, C reatinine 5.48 H, Estim Creat Clear Calc 19.15 L, Est GFR (MDRD) Non-Af 11 L, BUN/Creatinine Ratio 17.7, Glucose 150 H, Calcium 8.2, Troponin T High Sens 24 H 05/04/25 14:00: Lactic Acid 2.2 H* 05/04/25 14:31: Urine Color Yellow, Urine Clarity Sl. Cloudy, Urine pH 6.0, Ur Specific [place] 1.020, Urine Protein 500 H, Urine Glucose (UA) Normal, Urine Ketones 5 H, Urine Occult Blood 250 H, Urine Nitrite Negative, Urine Bilirubin Negative, Urine Urobilinogen Normal, Ur Leukocyte Esterase 500 H, Urine RBC 25- 50 SEEN, Urine WBC 25-50 SEEN, Ur Squamous Epith Cells 0 SEEN, Urine Bacteria 1+, Urine Mucus 0 SEEN 05/04/25 15:13: Troponin T Hi Sens 2 Hr 23 H 05/04/25 16:33: Ur Random Sodium 78, Urine Creatinine 56.00, Urine Opiates Screen NEGATIVE, U Buprenorphine Qual NEGATIVE, Ur Oxycodone Screen NEGATIVE, Urine Methadone Screen NEGATIVE, Urine Fentanyl Screen NEGATIVE, Ur Barbiturates Screen NEGATIVE, Ur Phencyclidine Scrn NEGATIVE, Ur Amphetamines Screen NEGATIVE, U Benzodiazepines Scrn NEGATIVE, Urine Cocaine Screen NEGATIVE, U Cannabinoids Screen NEGATIVE 05/04/25 16:39: Sodium 133, Potassium 4.8, Chloride 101, Carbon Dioxide 4.4 L*, Anion Gap 27 H, BUN 98 H, Creatinine 5.46 H, Estim Creat Clear Calc 19.06 L, Est GFR (MDRD) Non-Af 11 L, BUN/Creatinine Ratio 17.9, Glucose 227 H, Hemoglobin A1c 6.6 H, Calcium 7.2 L, Total Creatine Kinase 76, Triglycerides 258 H, b- Hydroxybutyric mmol/L 2.9 H, Procalcitonin 26.50 H 05/04/25 17:23: PT 21.7 H, INR 1.9, APTT 32.4 05/04/25 17:35: Troponin T Hi Sens 4Hr 26 H 05/04/25 18:03: POC Glucose 253 H 05/04/25 18:55: Lactic Acid 1.1, Ethyl Alcohol < 10.1 05/04/25 20:55: Sodium 129 L, Potassium 5.1, Chloride 100, Carbon Dioxide 5.4 L* , Anion Gap 24 H, BUN 103 H*, Creatinine 5.74 H, Estim Creat Clear Calc 18.22 L, Est GFR (MDRD) Non-Af 11 L, BUN/Creatinine Ratio 17.9, Glucose 355 H, Calcium 7.0 L 05/04/25 23:28: POC Glucose 261 H 05/04/25 23:40: Sodium 131 L, Potassium 4.8, Chloride 101, Carbon Dioxide 5.9 L* , Anion Gap 23 H, BUN 96 H, Creatinine 5.16 H, Estim Creat Clear Calc 20.27 L, E st GFR (MDRD) Non-Af 12 L, BUN/Creatinine Ratio 18.5, Glucose 300 H, Serum Osmolality 320 H, Calcium 7.0 L, Phosphorus 8.2 H, Magnesium 3.0 H, TSH 0.368 05/05/25 03:15: WBC 20.7 H, RBC 3.93 L, Hgb 10.8 L, Hct 30.8 L, MCV 78.4 L D, MCH 27.5, MCHC 35.1, RDW Std Deviation 45.2 H, RDW Coeff of Reinaldo 15.8 H, Plt Count 221, MPV 10.7, Sodium 134, Potassium 3.9, Chloride 102, Carbon Dioxide 8.4 L*, Anion Gap 24 H, BUN 86 H, Creatinine 4.60 H, Estim Creat Clear Calc 22.74 L, Est GFR (MDRD) Non-Af 14 L, BUN/Creatinine Ratio 18.7, Glucose 223 H, Lactic Acid < 1.0, Calcium 6.9 L, Phosphorus 6.4 H, Magnesium 2.6 H, Albumin 2.6 L 05/05/25 03:27: b-Hydroxybutyric mmol/L 1.7 H 05/05/25 05:52: POC Glucose 172 H 05/05/25 08:30: Sodium 135, Potassium 3.7, Chloride 102, Carbon Dioxide 10.8 L, Anion Gap 22 H, BUN 74 H, Creatinine 4.02 H, Estim Creat Clear Calc 26.12 L, Est GFR (MDRD) Non-Af 16 L, BUN/Creatinine Ratio 18.5, Glucose 171 H, Calcium 7.2 L, Phosphorus 6.1 H, Magnesium 2.5 H, Albumin 2.6 L 05/05/25 11:46: POC Glucose 140 H Micro: Microbiology 05/04/25 14:51 Sputum, Induced/Lukens Gram Stain - Final 05/04/25 14:51 Sputum, Induced/Lukens Respiratory Culture - Preliminary Staphylococcus aureus 05/04/25 14:00 Blood Culture (Wb) - Anticubital Right Blood Culture - Preliminary 05/04/25 14:31 Urine, Catheterized Urine Culture - Preliminary Presumptive E. coli 05/04/25 14:05 Blood Culture (Wb) - Anticubital Left Blood Culture - Preliminary 05/04/25 16:33 Urine, Clean Catch Legionella Antigen - Final 05/04/25 16:33 Urine, Clean Catch Streptococcus pneumoniae Antigen (M - Final 05/04/25 19:16 Nasal Secretion MRSA (PCR) - Final 05/04/25 16:29 Mucosa - Nose Respiratory Panel (PCR) - Final 05/04/25 14:06 Mucosa - Nose SARS-CoV-2, Influenza & RSV (PCR) - Final ABG Data ABG results: ABG 05/04/25 05/04/25 05/04/25 13:11 15:46 18:07 Specimen Type ART ART ART Sample Site R Brach R Brach R Brach pH 6.93 L* 6.80 L* 6.89 L* Bicarbonate Actual 1.5 L 4.2 L 6.2 L Total CO2 < 5 5 7 Base Excess < -30 L < -30 L -27 L O2 Saturation 97 89 L 86 L O2 % 3.0 35.0 30.0 ABG pCO2 7.2 L* 26.9 L 32.5 L ABG pO2 148 H 105 H 86 Satish Test Positive Respiration Rate 12 24 O2 Delivery Device Cannula Adult Vent Adult Vent Vent Mode Not entered AC AC Tidal Volume 450.0 450.0 POC PEEP 5 5 Crit Call To/Read Back Yes Yes Yes Blood Gas Notified Whom alberto huggins Blood Gas Notified Time 13:13:02 15:47:52 18:08:41 05/05/25 05/05/25 01:07 11:21 Specimen Type ART ART Sample Site L Radial L Radial pH 7.13 L* 7.33 L Bicarbonate Actual 7.0 L 13.2 L Total CO2 8 14 Base Excess -22 L -13 L O2 Saturation 96 97 O2 % 50.0 30.0 ABG pCO2 21.0 L 25.1 L ABG pO2 105 H 91 Satish Test N/A Positive Respiration Rate 24 24 O2 Delivery Device Adult Vent Adult Vent Vent Mode AC AC Tidal Volume 600.0 600.0 POC PEEP 5 5 Crit Call To/Read Back Yes Blood Gas Notified Whom [facility] physician Blood Gas Notified Time 01:10:28 Rhythm Strip Rhythm Strip: Sinus Rhythm Rate: 72 Ectopy: None Imaging Radiology Impression Chest X-Ray 05/04/25 13:25 IMPRESSION: Advanced right glenohumeral joint osteoarthritic changes are seen, with associated severe joint narrowing and osseous reactive changes Prior right rib fractures noted. Blunting of the right costophrenic angle is seen, possibly due to chronic pleural thickening or small right pleural effusion. No left pleural effusion is noted. At least mild degenerative changes of the visualized spine are seen. Lungs are hypoinflated. No pneumothorax is noted. No evidence of pulmonary edema. The cardiomediastinal silhouette is within the normal range. Reading Location: [place] [address] Chest X-Ray 05/04/25 14:40 IMPRESSION: Endotracheal tube position unchanged. Nasogastric tube seen with tip projecting of the distal esophagus. Repositioning should be considered. Lungs remain hypoinflated and unchanged. No pleural effusion or pneumothorax is noted. The cardiomediastinal silhouette is stable, without evidence of cardiomegaly. Reading Location: [place] [address] Chest X-Ray 05/04/25 14:43 IMPRESSION: Interval advancement of the nasogastric tube, but still with tip likely in the distal esophagus. The remainder of the examination is unchanged. Reading Location: [place] [address] Chest X-Ray 05/04/25 14:45 IMPRESSION: Interval advancement of the endotracheal tube is seen, now proximally 3 cm above the marine. Nasogastric tube is partially seen, but with proximal port clearly overlying the distal esophagus. The remainder of the examination is unchanged. Reading Location: [place] [address] Abdomen/Pelvis CT 05/04/25 15:02 IMPRESSION: Bilateral small pleural effusion with adjacent atelectasis. Additionally there are patchy scattered opacities within bilateral lung. Findings are concerning for underlying infectious/inflammatory process. There is widespread colonic diverticulosis. Mild stranding is visualized along multiple diverticula within right ascending colon. Findings could be related to early developing acute diverticulitis. Small nonobstructing right lower renal calculus. Diffuse hepatic steatosis. Reading Location: [id number] Chest X-Ray 05/04/25 19:56 IMPRESSION: As above. Reading Location: [id number]
[2025-05-05] MEDS: CHLORHEXIDINE GLUC 2% CLOTH 1 EACH TOWELETTE TOPICAL (12:28)
--- NOTE | 2025-05-05 13:16 | CASEMGMT ---
RN?CM?ASSESSMENT ? Pt is currently intubated. Strata: 2 Call placed to pt's brother, Adal, as he is listed as NOK for pt. Introduced self and role. The following information obtained from Adal. ? PCP: Dr Rothman is listed as PCP. Adal is not sure of this. Specialists: Adal is not aware. Preferred Pharmacy: Did not ask this info. Insurance: Adal is not sure. Prescription Benefit:?Did not ask this info. Living Will/HPOA:?As far as Adal knows, he does not think pt has completed these documents. LNOK: Daughter, Frida ([phone]). Per Adla, pt has not been in contact with her. Dad, Rebel Valdez, lives in [place], [place] ([phone]). Mom, Clara Mora, lives in [place], [place] ([phone]). Per Adal, pt has not been in contact with her for a long time. Siblings: Adal Valdez ([phone]), lives in [place], [place]. Alayna Vega ([phone]), lives in [place], [place]. Living Arrangements: Lives alone. Adal states he has never been to pt's home, but he thinks, from what they have talked about, that it is a 2-story home. He states as far as he knows, pt is independent. Transportation:?Adal states pt does drive. DME: Adal is not aware of any DME use. He states he just saw Adal about a month ago and he was not using any DME to ambulate. HHC/SNF: Did not ask this info. ? PLAN:??TBD, pending course of treatment/progress. ? Dariana BSN?RN?CM ? ?
--- NOTE | 2025-05-05 13:40 | CASEMGMT ---
Addendum entered by Kait De Leon 05/05/25 17:03: Social Work VM left with pt's father Rebel requesting Rebel reach out to pt's mother and keep her updated on pt condition. If pt condition worsens and end of life decision need to be made, both pts father Rebel and pt's mother Clara Mora will be joint decision makers. ISMA Etienne Addendum entered by Kait De Leon 05/05/25 16:47: Social Work SW received return call from pt's dgt Frida Danielkler. Frida confirms that to her knowledge pt is not and that she is pt's only child. Frida also states that she has not talked to pt in over a year and that she does not feel comfortable making medical decisions on pt's behalf. Pt dgt defers decision making to pt's father Rebel Valdez or mother Clara. SW spoke with pt's father Rebel Valdez ([phone]) Rebel is willing to be pt's medical decision maker. Rebel's (pt's step mother) is Clara Valedz and her number is [phone]. Rebel lives in [place] and cell service is difficult at times. Both numbers can be called to reach Rebel. SW provided Rebel with number to ICU where he can call for medical updates. Nursing updated and demographic sheet updated. ISMA Etienne Addendum entered by Kait De Leon 05/05/25 15:54: Social Work Second phone call to pt's dgt Frida Bull. JESSICA left requesting return call. ISMA Rodriguez Original Note: Social Work Phone call to pt's significant other Ary Peña and inquired if pt has completed a Health Care POA. Ary states that when the EMS arrived at pt home yesterday, they asked pt this question and pt informed EMS that he had not completed a HCPOA. Phone call to pt's dgt Frida and JESSICA left requesting she call SW back. SW will await return call to determine level of involvement and discuss decision making for pt at this time. ISMA Etienne
[2025-05-05] MEDS: Propofol 10MG/Ml 1,000 MG/100 ML Bottle 13.7 MG CONT INF ×2 (14:40→21:21)
[2025-05-05 15:12] LABS: Albumin, Serum 2.6 g/dL (3.5-5.0); Anion Gap 17 (5-15); BUN 66 mg/dL (4-19); BUN/Creat Ratio 17.1 RATIO (10-20); Calcium,Total 7.2 mg/dL (7.6-11.0); Carbon Dioxide 15.7 mmol/L (21.0-32.0); Chloride 103 mmol/L (98-108); Estimated Creatinine Clearance 27.27 ml/min (50-250); Glucose 192 mg/dL (70-99); Magnesium 2.4 mg/dL (1.5-2.2); Potassium 3.2 mmol/L (3.3-5.1)
[2025-05-05] MEDS: Heparin Injection (Vial) 5,000 UNIT/ML VIAL 5000 UNIT SC ×2 (15:46→22:32)
[2025-05-05 16:00] LABS: Allen Test Positive; Base Excess -7 mmol/L (-2 to +2); FI02 30.0; PEEP 5; PO2 88 mmHG (75-100); RR 18; SITE L Radial; SO2 96 % (95-99)
[2025-05-05] MEDS: Potassium Chloride 20mEq/100mL 20 MEQ/100 ML IV.SOLN. 100 MEQ IV BOLUS ×3 (16:39→22:22)
[2025-05-05] MEDS: fentaNYL drip 100 ML 10 MCG CONT INF (17:23)
[2025-05-05 19:27] LABS: Anion Gap 15 (5-15); Carbon Dioxide 17.3 mmol/L (21.0-32.0); Chloride 104 mmol/L (98-108); Magnesium 2.3 mg/dL (1.5-2.2); Potassium 3.2 mmol/L (3.3-5.1)
[2025-05-05] MEDS: Norepinephrine 8 MG in 0.9% Normal Saline (250mL Bag) 242 ML 37.5 MG CONT INF (21:00)
--- NOTE | 2025-05-05 21:02 | PCM.HOSP.N ---
Hospitalist Note Scheduled electrolyte panel drawn and demonstrates a repeat potassium level of 3.2, following KCl replacement of 20 mEq solution IV x 1 earlier today. Patient remains on CRRT, using 4K solution. Additional KCl replacement of 40 mEq ordered for central line with patient on telemetry.
[2025-05-05 22:53] LABS: Anion Gap 13 (5-15); Carbon Dioxide 18.3 mmol/L (21.0-32.0); Chloride 104 mmol/L (98-108); Magnesium 2.4 mg/dL (1.5-2.2); Potassium 3.2 mmol/L (3.3-5.1)
[2025-05-06] VITALS (46 sets, daily range): BP systolic 101–141; BP diastolic 44–61; PULSE 52–66; RESP 16–22; TEMP 37–37.9; O2SAT 92–100; BMI 34.4
[2025-05-06] MEDS: Dext 5%-0.45% NS 1,000 ML 150 ML IV ×2 (01:12→08:02)
[2025-05-06] MEDS: Norepinephrine 8 MG in 0.9% Normal Saline (250mL Bag) 242 ML 46.9 MG CONT INF ×2 (02:52→08:27)
[2025-05-06] MEDS: Propofol 10MG/Ml 1,000 MG/100 ML Bottle 13.7 MG CONT INF ×4 (02:55→21:09)
[2025-05-06] MEDS: fentaNYL drip 100 ML 10 MCG CONT INF ×3 (03:00→23:46)
[2025-05-06 03:07] LABS: Anion Gap 12 (5-15); Carbon Dioxide 18.6 mmol/L (21.0-32.0); Chloride 103 mmol/L (98-108); Magnesium 2.1 mg/dL (1.5-2.2); Potassium 3.2 mmol/L (3.3-5.1)
--- NOTE | 2025-05-06 04:43 | RAD_ITS ---
PROCEDURE: CHEST 1 VIEW (PORTABLE) 05/06/2025 REASON FOR EXAM: RESPIRATORY FAILURE TECHNIQUE: Frontal view of the chest. COMPARISON: 05/04/2025 FINDINGS: Endotracheal tube is seen in satisfactory placement 4 cm away from the marine. Nasogastric tube is seen ending in the stomach fundus with the side holes seen just at the gastroesophageal junction. Further into reduction by 7 cm is recommended. Poor inspiratory effort. Bilateral lower lung zones faint atelectasis versus infiltrates are seen. Stable cardiac size. Stable right lower lips hit the fracture. Minimal bilateral pleural effusion. No pneumothorax. RAD/Chest 1 View (Portable) IMPRESSION: Bilateral lower lung zones faint atelectasis versus infiltrates. Minimal bilateral pleural effusion. Endotracheal tube is seen in satisfactory placement 4 cm away from the marine. Nasogastric tube is seen ending in the stomach fundus with the side holes seen just at the gastroesophageal junction. Further into reduction by 7 cm is recommended Reading [facility]
[2025-05-06 05:30] LABS: Base Excess -2 mmol/L (-2 to +2); FI02 21.0; PEEP 5; PO2 53 mmHG (75-100); RR 18; SITE L Radial; SO2 88 % (95-99)
[2025-05-06] MEDS: Piperacil/Tazobactam 3.375 GM in 0.9% Normal Saline (50mL MB+) 50 ML IV ×3 (06:11→21:47)
[2025-05-06] MEDS: Heparin Injection (Vial) 5,000 UNIT/ML VIAL 5000 UNIT SC ×3 (06:15→21:50)
[2025-05-06] MEDS: PUREFLOW B SOLUTION 4K 5,000 ML BAG 9 BAG PF ×4 (06:15→19:10)
[2025-05-06] MEDS: 0.9% Saline Lock 10 ML Syringe IV ×4 (06:16→17:45)
[2025-05-06 06:54] LABS: Anion Gap 10 (5-15); Carbon Dioxide 20.2 mmol/L (21.0-32.0); Chloride 103 mmol/L (98-108); Magnesium 2.1 mg/dL (1.5-2.2); Potassium 3.2 mmol/L (3.3-5.1)
[2025-05-06] MEDS: Chlorhexidine 15 ML PO ×2 (07:41→21:51)
[2025-05-06 08:10] LABS: Hematocrit 27.3 % (40-54); Hemoglobin 10.1 g/dL (13.0-16.5); Immature Granulocytes Count 0.680 X10^3/uL (0.0-0.0); Mean Corp Hgb Conc 37.0 g/dL (32-36); Mean Corpuscular Volume 76.0 fL (80-94); Mean Platelet Vol. 10.9 fl (6.2-12.0); NRBC Flagged by Analyzer 0 % (0-5); Platelet Count 136 K/mm3 (150-450); RBC Distribution Width CV 15.6 % (11.6-14.6); RBC Distribution Width SD 43.3 fl (35.1-43.9); Red Blood Count 3.59 M/mm3 (4.6-6.2); White Blood Count 19.8 K/mm3 (4.4-11.0)
[2025-05-06] MEDS: Vancomycin Trough/Random Due 1 LAB MC (08:24)
[2025-05-06] MEDS: CHLORHEXIDINE GLUC 2% CLOTH 1 EACH TOWELETTE TOPICAL (08:25)
--- NOTE | 2025-05-06 08:36 | PN.HOSP_ITS ---
Reason for Visit Chief Complaint: Shortness of breath Objective Data Objective Data Vital Signs: Vital Signs Temp Pulse Resp BP Pulse Ox O2 Del Method O2 Flow Rate 99.4 F H 58 L 18 124/48 H 100 Mechanical Ventilator 2 05/06/25 04:00 05/06/25 08:00 05/06/25 07:00 05/06/25 07:00 05/06/25 07:00 05/06/25 07:00 05/04/25 14:16 FiO2 30 05/06/25 07:00 Oxygen Flow Rate (L/min) 2 Oxygen Delivery Method Mechanical Ventilator Weight: 253 lb 15.56 oz Body Mass Index (BMI) 34.4 Intake & Output: Intake and Output for Last 24 Hours 05/04/25 05/05/25 05/06/25 23:59 23:59 23:59 Intake Total 3856.77 / 3861.10 3703.36 / 3741.09 2770.88 / 2770.88 Output Total 972 / 1039 2799 / 2799 70 / 70 Balance 2884.77 / 2822.10 904.36 / 942.09 2700.88 / 2700.88 Lab / Micro Data 05/06/25 07:58 05/06/25 06:20 Labs: Laboratory Results - last 24 hr 05/05/25 03:27: b-Hydroxybutyric mmol/L 1.7 H 05/05/25 08:30: Sodium 135, Potassium 3.7, Chloride 102, Carbon Dioxide 10.8 L, Anion Gap 22 H, BUN 74 H, Creatinine 4.02 H, Estim Creat Clear Calc 26.12 L, Est GFR (MDRD) Non-Af 16 L, BUN/Creatinine Ratio 18.5, Glucose 171 H, Calcium 7.2 L, Phosphorus 6.1 H, Magnesium 2.5 H, Albumin 2.6 L 05/05/25 11:46: POC Glucose 140 H 05/05/25 13:03: POC Glucose 114 H 05/05/25 14:15: Sodium 136 05/05/25 14:15: Sodium Cancelled, Potassium 3.2 L 05/05/25 14:15: Potassium Cancelled, Chloride 103 05/05/25 14:15: Chloride Cancelled, Carbon Dioxide 15.7 L 05/05/25 14:15: Carbon Dioxide Cancelled, Anion Gap 17 H 05/05/25 14:15: Anion Gap Cancelled, BUN 66 H, Creatinine 3.85 H, Estim Creat Clear Calc 27.27 L, Est GFR (MDRD) Non-Af 17 L, BUN/Creatinine Ratio 17.1, G lucose 192 H, Calcium 7.2 L, Phosphorus 5.4 H 05/05/25 14:15: Phosphorus 5.3 H, Magnesium 2.4 H 05/05/25 14:15: Magnesium Cancelled, Albumin 2.6 L 05/05/25 14:18: POC Glucose 146 H 05/05/25 15:13: POC Glucose 151 H 05/05/25 16:17: POC Glucose 143 H 05/05/25 17:10: POC Glucose 120 H 05/05/25 18:00: Sodium 136, Potassium 3.2 L, Chloride 104, Carbon Dioxide 17.3 L , Anion Gap 15, Phosphorus 4.6 H, Magnesium 2.3 H 05/05/25 18:04: POC Glucose 153 H 05/05/25 19:02: POC Glucose 110 H 05/05/25 20:13: POC Glucose 90 05/05/25 20:59: POC Glucose 72 L 05/05/25 22:01: POC Glucose 120 H 05/05/25 22:28: Sodium 135, Potassium 3.2 L, Chloride 104, Carbon Dioxide 18.3 L , Anion Gap 13, Phosphorus 3.6, Magnesium 2.4 H 05/05/25 23:00: POC Glucose 115 H 05/06/25 00:02: POC Glucose 83 05/06/25 01:01: POC Glucose 53 L 05/06/25 01:32: POC Glucose 118 H 05/06/25 02:05: Sodium 134, Potassium 3.2 L, Chloride 103, Carbon Dioxide 18.6 L , Anion Gap 12, Phosphorus 2.8, Magnesium 2.1, POC Glucose 172 H 05/06/25 03:03: POC Glucose 127 H 05/06/25 04:05: POC Glucose 148 H 05/06/25 05:04: POC Glucose 125 H 05/06/25 06:04: POC Glucose 116 H 05/06/25 06:20: Sodium 134, Potassium 3.2 L, Chloride 103, Carbon Dioxide 20.2 L , Anion Gap 10, Phosphorus 2.5 L, Magnesium 2.1 05/06/25 07:01: POC Glucose 113 H 05/06/25 07:58: WBC 19.8 H, RBC 3.59 L, Hgb 10.1 L, Hct 27.3 L, MCV 76.0 L, MCH 28.1, MCHC 37.0 H D, RDW Std Deviation 43.3, RDW Coeff of Reinaldo 15.6 H, Plt Count 136 L, MPV 10.9, Immature Gran % (Auto) 3.400 H, Neut % (Auto) 87.3 H, Lymph % (Auto) 4.0 L, Edgar % (Auto) 4.9, Eos % (Auto) 0.2, Baso % (Auto) 0.2, Absolute Neuts (auto) 17.3 H, Absolute Lymphs (auto) 0.80 L, Nucleated RBC % 0 Micro: Microbiology 05/04/25 14:51 Sputum, Induced/Lukens Gram Stain - Final 05/04/25 14:51 Sputum, Induced/Lukens Respiratory Culture - Final Staphylococcus aureus 05/04/25 14:31 Urine, Catheterized Urine Culture - Preliminary ESBL Escherichia coli 05/04/25 14:05 Blood Culture (Wb) - Anticubital Left Blood Culture - Preliminary GNR lactose open cut examiner 05/04/25 14:00 Blood Culture (Wb) - Anticubital Right Blood Culture - Preliminary GNR lactose open cut examiner 05/04/25 16:33 Urine, Clean Catch Legionella Antigen - Final 05/04/25 16:33 Urine, Clean Catch Streptococcus pneumoniae Antigen (M - Final 05/04/25 19:16 Nasal Secretion MRSA (PCR) - Final 05/04/25 16:29 Mucosa - Nose Respiratory Panel (PCR) - Final 05/04/25 14:06 Mucosa - Nose SARS-CoV-2, Influenza & RSV (PCR) - Final ABG Data ABG results: ABG 05/05/25 05/05/25 05/06/25 11:21 15:57 05:24 Specimen Type ART ART ART Sample Site L Radial L Radial L Radial pH 7.33 L 7.34 L 7.44 Bicarbonate Actual 13.2 L 18.7 L 22.6 Total CO2 14 20 24 Base Excess -13 L -7 L -2 O2 Saturation 97 96 88 L O2 % 30.0 30.0 21.0 ABG pCO2 25.1 L 34.5 L 33.2 L ABG pO2 91 88 53 L Satish Test Positive Positive N/A Respiration Rate 24 18 18 O2 Delivery Device Adult Vent Adult Vent Adult Vent Vent Mode AC AC AC Tidal Volume 600.0 600.0 600.0 POC PEEP 5 5 5 Radiography Diagnostic Testing: Radiology Impression Chest X-Ray 05/06/25 04:43 IMPRESSION: Bilateral lower lung zones faint atelectasis versus infiltrates. Minimal bilateral pleural effusion. Endotracheal tube is seen in satisfactory placement 4 cm away from the marine. Nasogastric tube is seen ending in the stomach fundus with the side holes seen just at the gastroesophageal junction. Further into reduction by 7 cm is recommended [facility] Rhythm Strip Rhythm Strip: Sinus Rhythm Rate: 72 Ectopy: None Physical Exam Narrative Seen and examined. Patient is intubated. On FiO2 30%/600/5. Patient maxed on Levophed drip 25 mics per minute. BP 124/48. Bradycardia, heart rate in 50s. Urine dark yellow in Rasmussen catheter. On CRRT through right IJ temporary dialysis catheter. But later on patient had CVC catheter in right femoral vein and started on Levophed drip. Physical exam General: Awake/mildly drowsy on propofol and fentanyl HEENT: Atraumatic. Normocephalic. Oral: ETT and OG tube Neck: Supple, No JVD, Negative Carotid Bruits Chest wall/Lungs: Right IJ dialysis catheter. Air entry diminished in bilateral lung bases. No crepitation/rhonchi Cardiovascular: Regular sinus rhythm. Systolic murmur with radiation to carotid Abdomen: Bowel Sounds sluggish soft, Non Tender, Non-Distended : Anuria. Rasmussen catheter dark-colored on CRRT. No suprapubic tenderness. Extremities: Right femoral TLC catheter. 2+ pedal edema, Capillary Refill Less than 3 Seconds Skin: No rashes, No breakdown Musculoskeletal: No Tenderness to Palpation of Joints or Extremities. Lower extremities weak but on light sedation Neurological: Neuroexam unobtainable significant Psych/Mental Status: Sedated Assessment & Plan Assessment/Plan (1) Acute renal failure: (2) High anion gap metabolic acidosis: (3) Acute respiratory failure: PLAN: Plan Patient is a 60-year-old male who presented to [facility] ED on 05/04/2025 with worsening shortness of breath. 1. Acute hypoxic respiratory failure possible secondary to community-acquired pneumonia: Patient being admitted to ICU. On ventilator. FiO2 30%/450/12/5. Patient is on respiratory rate 24/min. CT abdomen shows small bilateral pleural effusion and patchy scattered opacity within bilateral lungs. Enterprise Mobility Architect is consulted. Vent management as per talent sourcing specialist 05/06: Remain on the similar vent setting like yesterday. ABG 7.4/33/53 on 21%/600/5. 2. Septic shock suspected secondary to community-acquired pneumonia probably from GNR bacteremia and Staph aureus pneumonia: The patient presented with sepsis with clinical indicators of leukocytosis due to community-acquired pneumonia with acute sepsis-related organ dysfunction as evidenced by elevated lactic acid, profound anion gap metabolic acidosis, Acute hypoxic respiratory failure intubation, acute kidney injury and coagulopathy. Empirically on IV vancomycin and Zosyn Chest x-ray initially reviewed and shows mild bilateral lower lungs infiltrates Both blood culture bottles aerobic and anaerobic growing GNR. Urine culture prelim positive E. coli more than 100,000 colonies. Gram stain sputum culture Staph aureus 3+. Respiratory panel and urinary antigens and MRSA PCR negative. 05/06: Currently on broad-spectrum antibiotic. ID consult on Thursday. Low-grade temperature 99.4 ?F on 05/06. 2. Acute renal failure with high anion gap metabolic acidosis ? Nephrology consulted. Creatinine 5.48, BUN 97 on admit. Baseline creatinine appears to be around 1.0. Initial ABG with pH 6.93, pCO2 7. Bicarb 2.9 on BMP. Appears that acute renal failure is the primary truck driver's offsider of the metabolic acidosis at this time. Mild lactic acid elevation of 2.2. Beta hydroxybutyrate only mildly elevated at 2.9. In ED, patient received 2 L of IV fluid bolus, Rasmussen catheter was inserted but still minimal urine/anuria. Repeat ABG pH 6.8. Had 2 Amp of bicarb and initiated bicarb drip. Grinder Set Up Operator Jig consulted. On hemodialysis CRRT CT abdomen was done which shows bilateral small pleural effusion with adjacent atelectasis, patchy scattered opacity within bilateral lungs concerning for underlying infectious or inflammatory process. Widespread colonic diverticulosis with mild stranding on right ascending colon suspicious for early evolving acute diverticulitis. Small nonobstructing right lower lobe renal calculus. Bilateral perinephric stranding right more than left 3. Type 2 diabetes mellitus ? Blood glucose 150 on admit. A1c 6.6%. Hold home metformin. Accu-Chek before meals and at bedtime with Humalog sliding scale coverage and hypoglycemia protocol. 05/06: Glucose 192. Patient had D10 yesterday night for hypoglycemia 4. Tobacco dependence ? Smokes about 1 pack of cigarettes daily. Has smoked for many years. Nicotine replacement therapy will be available if needed and will need to discuss cessation with patient on discharge. 5. Class I obesity ? BMI 33 on admit. Complicates hospital course and care. DVT prophylaxis: Heparin subcu 538 every 8 hourly CODE STATUS: Full code, verified Charges/Coding Visit Charges Inpatient E&M: 92162 Subs Hosp L3
[2025-05-06 08:59] LABS: Vancomycin, Trough Level 16.7 ug/mL (5.0-15.0)
[2025-05-06] MEDS: Pantoprazole Sodium 40 MG in 0.9% Normal Saline (100mL MB+) 100 ML 300 MG IV ×2 (09:10→21:47)
[2025-05-06] MEDS: Vancomycin HCl 1,000 MG in 0.9% Normal Saline (250mL Bag) 250 ML 250 MG IV ×2 (09:29→20:00)
[2025-05-06] MEDS: NORMAL SALINE 0.9% IV (09:29)
[2025-05-06] MEDS: POTASSIUM CHLORIDE IV (09:29)
[2025-05-06] MEDS: Sodium Phosphate/Na Biphos 30 MMOL in 0.9% Normal Saline (250mL Bag) 250 ML 62.5 MMOL IV (09:29)
--- NOTE | 2025-05-06 10:01 | PCM.RX.CS ---
Consult Antibiotic Management Pharmacy has been consulted to manage selected antibiotic: Vancomycin Type of Intervention Type of Consult: Follow-up Labs Labs: Sodium 134 mmol/L (133-145) 05/06/25 06:20 Potassium 3.2 mmol/L (3.3-5.1) L 05/06/25 06:20 Chloride 103 mmol/L (98-108) 05/06/25 06:20 Carbon Dioxide 20.2 mmol/L (21.0-32.0) L 05/06/25 06:20 Anion Gap 10 (5-15) 05/06/25 06:20 BUN 66 mg/dL (4-19) H 05/05/25 14:15 Creatinine 3.85 mg/dL (0.70-1.20) H 05/05/25 14:15 Est GFR (MDRD) Non-Af 17 (>60) L 05/05/25 14:15 BUN/Creatinine Ratio 17.1 RATIO (10-20) 05/05/25 14:15 Glucose 192 mg/dL (70-99) H 05/05/25 14:15 Vancomycin Trough 16.7 ug/mL (5.0-15.0) H 05/06/25 08:23 Microbiology Microbiology: Microbiology 05/04/25 14:51 Sputum, Induced/Lukens Gram Stain - Final 05/04/25 14:51 Sputum, Induced/Lukens Respiratory Culture - Final Staphylococcus aureus 05/04/25 14:31 Urine, Catheterized Urine Culture - Preliminary ESBL Escherichia coli 05/04/25 14:05 Blood Culture (Wb) - Anticubital Left Blood Culture - Preliminary GNR lactose caddy/caddie supervisor 05/04/25 14:00 Blood Culture (Wb) - Anticubital Right Blood Culture - Preliminary GNR lactose caddy/caddie supervisor 05/04/25 16:33 Urine, Clean Catch Legionella Antigen - Final 05/04/25 16:33 Urine, Clean Catch Streptococcus pneumoniae Antigen (M - Final 05/04/25 19:16 Nasal Secretion MRSA (PCR) - Final 05/04/25 16:29 Mucosa - Nose Respiratory Panel (PCR) - Final 05/04/25 14:06 Mucosa - Nose SARS-CoV-2, Influenza & RSV (PCR) - Final Pharmacy Plan for Drug Dosing Pharmacy Plan for Drug Dosing: VANCOMYCIN LEVEL RECEIVED Current Vancomycin Dose: 1000mg Q12 Number of Doses Received: 3 Vancomycin Level: 16.7 mg/dL Hours Since Last Dose: 12 Renal Function: SCr 3.85 mg/dL, CrCl 27 mL/min, *still on CRRT* Renal Function Trend: CRRT Lab/Micro: prelim staph in sputum Cx, E coli in urine, GNR prelim in blood cx Vancomycin Plan/Comments: 12 hour trough is therapeutic at 16.7mg/dL (goal 15-20). Will continue current dosing and get a repeat trough in 24 hours per policy. Pending Level: 05/07/25 @ [id number] Pharmacy Service will continue to monitor and adjust dosing as required.
[2025-05-06 11:07] LABS: Anion Gap 11 (5-15); BUN 37 mg/dL (4-19); BUN/Creat Ratio 13.5 RATIO (10-20); Calcium,Total 7.3 mg/dL (7.6-11.0); Carbon Dioxide 19.4 mmol/L (21.0-32.0); Chloride 103 mmol/L (98-108); Estimated Creatinine Clearance 38.79 ml/min (50-250); Glucose 189 mg/dL (70-99); Magnesium 2.1 mg/dL (1.5-2.2); Potassium 3.4 mmol/L (3.3-5.1)
--- NOTE | 2025-05-06 13:40 | PCM.PN.TICU ---
Objective Data Objective Data Vital Signs: Vital Signs Last response Temperature 37.4 C H 05/06/25 13:00 Temperature Source Core 05/06/25 13:00 Pulse Rate 57 L 05/06/25 13:00 Pulse Strength Normal (2+) 05/06/25 08:43 Respiratory Rate 18 05/06/25 13:00 Respiratory Effort Mechanically Ventilated 05/06/25 11:36 Respiratory Depth Normal 05/06/25 11:36 Respiratory Pattern Normal 05/06/25 12:44 Blood Pressure 117/51 L 05/06/25 13:00 Blood Pressure Mean 73 05/06/25 13:00 Blood Pressure Source Monitor 05/06/25 13:00 Blood Pressure Position Semi-Fowlers 05/05/25 17:15 Blood Pressure Location Left Arm 05/05/25 17:15 Pulse Ox 100 05/06/25 13:00 Oxygen Delivery Method Mechanical Ventilator 05/06/25 13:00 Oxygen Flow Rate (L/min) 2 05/04/25 14:16 Fraction of Inspired Oxygen (FIO2) 30 05/06/25 13:00 I&O: I&O Last 24 Hours 05/05/25 05/06/25 05/06/25 23:59 11:59 23:59 Intake Total 2440.74 / 3741.09 3675.77 / 4610.09 934.32 / 4610.09 Output Total 1256 / 2799 689 / 1186 497 / 1186 Balance 1184.74 / 942.09 2986.77 / 3424.09 437.32 / 3424.09 I&O: Total Stay 05/04/25 12:45 thru 05/06/25 13:27 Intake Total 72524.22 Output Total 4957 Balance 7213.22 Current Meds Ordered / Administered: Current meds ordered / Administered Generic Name Dose Route Start Last Admin Trade Name Freq PRN Reason Stop Dose Admin Acetaminophen 650 mg 05/04/25 16:20 Acetaminophen 325 Mg Tablet GT Q6H PRN PRN Pain 1-10 Or Fever>100.7 Albuterol/Ipratropium 3 ml 05/05/25 00:00 05/06/25 12:44 Ipratropium/Albuterol Sulfate 3 Ml Ampul.Neb INHALATION 3 ml Q6H.RT CHERIE Administration CRRT Dialysis Solution 9 bag 05/04/25 20:24 05/06/25 09:09 Pureflow B Solution 4k 5,000 Ml Bag PF 4 bag UD PRN Administration CRRT Protocol Chlorhexidine Gluconate 15 ml 05/04/25 22:00 05/06/25 07:41 Chlorhexidine 15 Ml PO 15 ml BID CHERIE Administration Chlorhexidine Gluconate 1 each 05/05/25 10:00 05/06/25 08:25 Chlorhexidine Gluc 2% Cloth 1 Each Towelette TOPICAL 1 each DAILY CHERIE Administration Fentanyl Citrate 50 mcg 05/04/25 16:20 Fentanyl 100 Mcg/2 Ml Ampul IV Q2H PRN PRN Pain >/= 4/10 or CPOT>/= 3/8 Glucagon 1 mg 05/04/25 16:20 Glucagon 1 Mg/Ml Syringe IM X1 PRN Hypoglycemia Protocol Glucagon 1 mg 05/06/25 13:36 Glucagon 1 Mg/Ml Syringe IM X1 PRN Hypoglycemia Protocol Heparin Sodium (Porcine) 0 units 05/04/25 20:24 05/05/25 00:21 Heparin 10,000 Units/10 Ml Vial IV 2,600 units X1 PRN Administration Emergency Dialysis Catheter DC Heparin Sodium (Porcine) 5,000 unit 05/05/25 14:00 05/06/25 06:15 Heparin Injection (Vial) 5,000 Unit/Ml Vial SC 5,000 unit Q8 CHERIE Administration Hydrocortisone Sodium Succinate 50 mg 05/06/25 18:00 Hydrocortisone Sod Succinate 100 Mg/2 Ml Vial IV Q6 CHERIE Propofol 1,000 mg in 100 mls @ 6.846 mls/hr 05/04/25 14:45 05/06/25 13:00 Diprivan CONT INF 20 mcg/kg/min .Q12H CHERIE 13.7 mls/hr Protocol Titration 10 MCG/KG/MIN Dextrose 250 mls @ 0 mls/hr 05/04/25 16:20 05/06/25 01:11 Dextrose 10%-Water IV 0 mls/hr .Q0M PRN Infusion HYPOGLYCEMIA Protocol As Directed Sodium Chloride 250 mls @ 15 mls/hr 05/04/25 16:27 IV .[id number] PRN Saline Flush Sodium Chloride 250 mls @ 15 mls/hr 05/04/25 16:27 IV .[id number] PRN Additional IVPB Infusion Vancomycin IV-PHARMACY TO DOSE 500 mls @ 250 mls/hr 05/04/25 18:40 1 each/ Sodium Chloride IV PRN PRN Rx to Dose Protocol Fentanyl 100 mls @ 5 mls/hr 05/04/25 19:25 05/06/25 13:00 CONT INF 100 mcg/hr UD CHERIE 10 mls/hr Protocol Titration 50 MCG/HR Magnesium Sulfate 4 gm in 100 mls @ 25 mls/hr 05/04/25 20:24 IV X1 PRN Magnesium level < 1.6mg/dl Sodium Phosphate 30 mmol/ 260 mls @ 62.5 mls/hr 05/04/25 20:24 05/06/25 09:29 Sodium Chloride IV 62.5 mls/hr X1 PRN Administration Phosphorus Level <2.5 Potassium Chloride 40 meq/ 270 mls @ 135 mls/hr 05/04/25 20:24 05/06/25 11:30 Sodium Chloride IV Infused X1 PRN Infusion K+ <3.5 mEq/L Piperacillin Sod/Tazobactam 50 mls @ 12.5 mls/hr 05/04/25 22:00 05/06/25 10:21 Sod 3.375 gm/ Sodium Chloride IV Infused Q8 CHERIE Infusion Vancomycin HCl 1,000 mg/ 270 mls @ 250 mls/hr 05/05/25 08:00 05/06/25 10:42 Sodium Chloride IV Infused Q12H CHERIE Infusion Norepinephrine Bitartrate 8 mg 250 mls @ 9.375 mls/hr 05/04/25 23:50 05/06/25 13:00 / Sodium Chloride CONT INF 20 mcg/min .[id number] CHERIE 37.5 mls/hr Protocol Titration 5 MCG/MIN Pantoprazole Sodium 40 mg/ 100 mls @ 300 mls/hr 05/05/25 10:00 05/06/25 09:31 Sodium Chloride IV Infused Q12 CHERIE Infusion Dextrose 250 mls @ 0 mls/hr 05/05/25 10:51 Dextrose 10%-Water IV .Q0M PRN HYPOGLYCEMIA Protocol As Directed Dextrose 250 mls @ 0 mls/hr 05/06/25 13:36 Dextrose 10%-Water IV .Q0M PRN HYPOGLYCEMIA Protocol As Directed Insulin Human Lispro 0 unit 05/06/25 18:00 Insulin Lispro 100 Unit/Ml Insuln.Pen SC Q6 CHERIE Protocol Melatonin 3 mg 05/04/25 16:20 Melatonin 3 Mg Tablet PO QHS PRN PRN INSOMNIA Ondansetron HCl 4 mg 05/04/25 16:20 Ondansetron 4 Mg/2 Ml Vial IV Q8H PRN PRN NAUSEA/VOMITING Sodium Chloride 10 - 40 ml 05/04/25 16:27 05/06/25 08:00 0.9% Saline Lock 10 Ml Syringe IV 10 ml UD PRN Administration SALINE FLUSH Sodium Chloride 20 ml 05/04/25 20:24 0.9% Saline Lock 10 Ml Syringe IV UD PRN Emergency Dialysis Catheter DC Sodium Chloride 50 - 100 ml 05/04/25 20:24 0.9% Normal Saline 1,000 Ml Iv.Soln. IV UD PRN CRRT System Flush Vancomycin Protocol 1 lab 05/07/25 06:30 Vancomycin Trough/Random Due MC 05/07/25 08:30 DAILY [facility] Lab / Micro Data 05/06/25 07:58 05/06/25 10:20 Labs: Laboratory Results - last 24 hr 05/05/25 13:03: POC Glucose 114 H 05/05/25 14:15: Sodium 136 05/05/25 14:15: Sodium Cancelled, Potassium 3.2 L 05/05/25 14:15: Potassium Cancelled, Chloride 103 05/05/25 14:15: Chloride Cancelled, Carbon Dioxide 15.7 L 05/05/25 14:15: Carbon Dioxide Cancelled, Anion Gap 17 H 05/05/25 14:15: Anion Gap Cancelled, BUN 66 H, Creatinine 3.85 H, Estim Creat Clear Calc 27.27 L, Est GFR (MDRD) Non-Af 17 L, BUN/Creatinine Ratio 17.1, Glucose 192 H, Calcium 7.2 L, Phosphorus 5.4 H 05/05/25 14:15: Phosphorus 5.3 H, Magnesium 2.4 H 05/05/25 14:15: Magnesium Cancelled, Albumin 2.6 L 05/05/25 14:18: POC Glucose 146 H 05/05/25 15:13: POC Glucose 151 H 05/05/25 16:17: POC Glucose 143 H 05/05/25 17:10: POC Glucose 120 H 05/05/25 18:00: Sodium 136, Potassium 3.2 L, Chloride 104, Carbon Dioxide 17.3 L, Anion Gap 15, Phosphorus 4.6 H, Magnesium 2.3 H 05/05/25 18:04: POC Glucose 153 H 05/05/25 19:02: POC Glucose 110 H 05/05/25 20:13: POC Glucose 90 05/05/25 20:59: POC Glucose 72 L 05/05/25 22:01: POC Glucose 120 H 05/05/25 22:28: Sodium 135, Potassium 3.2 L, Chloride 104, Carbon Dioxide 18.3 L, Anion Gap 13, Phosphorus 3.6, Magnesium 2.4 H 05/05/25 23:00: POC Glucose 115 H 05/06/25 00:02: POC Glucose 83 05/06/25 01:01: POC Glucose 53 L 05/06/25 01:32: POC Glucose 118 H 05/06/25 02:05: Sodium 134, Potassium 3.2 L, Chloride 103, Carbon Dioxide 18.6 L, Anion Gap 12, Phosphorus 2.8, Magnesium 2.1, POC Glucose 172 H 05/06/25 03:03: POC Glucose 127 H 05/06/25 04:05: POC Glucose 148 H 05/06/25 05:04: POC Glucose 125 H 05/06/25 06:04: POC Glucose 116 H 05/06/25 06:20: Sodium 134, Potassium 3.2 L, Chloride 103, Carbon Dioxide 20.2 L, Anion Gap 10, Phosphorus 2.5 L, Magnesium 2.1 05/06/25 07:01: POC Glucose 113 H 05/06/25 07:58: WBC 19.8 H, RBC 3.59 L, Hgb 10.1 L, Hct 27.3 L, MCV 76.0 L, MCH 28.1, MCHC 37.0 H D, RDW Std Deviation 43.3, RDW Coeff of Reinaldo 15.6 H, Plt Count 136 L, MPV 10.9, Immature Gran % (Auto) 3.400 H, Neut % (Auto) 87.3 H, Lymph % (Auto) 4.0 L, Tyler % (Auto) 4.9, Eos % (Auto) 0.2, Baso % (Auto) 0.2, Absolute Neuts (auto) 17.3 H, Absolute Lymphs (auto) 0.80 L, Nucleated RBC % 0 05/06/25 08:17: POC Glucose 135 H 05/06/25 08:23: Vancomycin Trough 16.7 H 05/06/25 09:17: POC Glucose 123 H 05/06/25 09:58: POC Glucose 126 H 05/06/25 10:20: Sodium 133, Potassium 3.4, Chloride 103, Carbon Dioxide 19.4 L, Anion Gap 11, BUN 37 H, Creatinine 2.72 H, Estim Creat Clear Calc 38.79 L, Est GFR (MDRD) Non-Af 26 L, BUN/Creatinine Ratio 13.5, Glucose 189 H, Calcium 7.3 L, Phosphorus 2.8, Magnesium 2.1 05/06/25 11:02: POC Glucose 149 H 05/06/25 11:59: POC Glucose 143 H Micro: Microbiology 05/04/25 14:51 Sputum, Induced/Lukens Gram Stain - Final 05/04/25 14:51 Sputum, Induced/Lukens Respiratory Culture - Final Staphylococcus aureus 05/04/25 14:31 Urine, Catheterized Urine Culture - Preliminary ESBL Escherichia coli 05/04/25 14:05 Blood Culture (Wb) - Anticubital Left Blood Culture - Preliminary GNR lactose razor sharpener 05/04/25 14:00 Blood Culture (Wb) - Anticubital Right Blood Culture - Preliminary GNR lactose razor sharpener ABG Data ABG results: ABG 05/05/25 05/06/25 15:57 05:24 Specimen Type ART ART Sample Site L Radial L Radial pH 7.34 L 7.44 Bicarbonate Actual 18.7 L 22.6 Total CO2 20 24 Base Excess -7 L -2 O2 Saturation 96 88 L O2 % 30.0 21.0 ABG pCO2 34.5 L 33.2 L ABG pO2 88 53 L Satish Test Positive N/A Respiration Rate 18 18 O2 Delivery Device Adult Vent Adult Vent Vent Mode AC AC Tidal Volume 600.0 600.0 POC PEEP 5 5 Rhythm Strip Rhythm Strip: Sinus Rhythm Rate: 72 Ectopy: None Imaging Radiology Impression Chest X-Ray 05/06/25 04:43 IMPRESSION: Bilateral lower lung zones faint atelectasis versus infiltrates. Minimal bilateral pleural effusion. Endotracheal tube is seen in satisfactory placement 4 cm away from the marine. Nasogastric tube is seen ending in the stomach fundus with the side holes seen just at the gastroesophageal junction. Further into reduction by 7 cm is recommended Reading Location: [place] [address] Assessment and Plan . Assessment and plan: 60 M w/ asthma, DM, tobacco use who was admitted for respiratory failure. History obtained from chart as pt intubated, no family at bedside. He reportedly had a flulike illness about 1 week ago, associated with URI sx and N/V. He then developed worsening dyspnea over past few days. Saw PCP in office yesterday and was given Z-toshia, only took 1 dose of this. He then developed significant worsening dyspnea this AM prompting him to call EMS. He was tachypneic and with SBP 200s on arrival here. He was also noted to have severe metabolic acidosis with pH < 7 and severe BAR. He was reportedly awake and able to follow commands on arrival. He failed attempt at BiPAP and was ultimately intubated. Nephrology was consulted per IM and pt was started on CRRT this evening. 05/06/25 Patient seen and examined. Chart and data reviewed. Sedated Weaning NE down CRRT w/ UF Insulin infusion paused MV reviewed- modest requirement CX and data reviewed Physical Exam: Gen - NAD, obese, intubated HEENT - MMM. ETT in place. PERRL Resp - Diminished BS. Mechanically ventilated CV - RRR. No m/g/r Abd - Soft, NT, ND Ext - No c/c/e. Skin - No rashes? Neuro - Sedated, intubated ASSESSMENT: # Acute hypoxic respiratory failure # Sepsis # UTI/bacteremia # Pulmonary bibasilar infiltrates - favor atelectasis though PNA not entirely excluded # Severe AGMA - suspect primarily from renal failure # Severe BAR # Possible early acute diverticulitis? - noted on CT # Coffee ground OG output # Hepatic steatosis # Asthma # DM - A1c 6.6% # Lung nodule # Tobacco use -MV support -sedation / analgesia -CRRT -sq insulin -wean NE off -IV hydrocortisone -ABX - consider carbapenam, could probably stop vancomycin -PPI -VTE ppx Critical Care Time: 50 minutes The entirety of this encounter was done via Telemedicine
[2025-05-06] MEDS: Norepinephrine 8 MG in 0.9% Normal Saline (250mL Bag) 242 ML 37.5 MG CONT INF (14:30)
--- NOTE | 2025-05-06 15:38 | CASEMGMT ---
Social Work Phone call placed to pt's mother Clara Mora. Pat is aware that pt is in the hospital and confirms that she is agreeable to take phone call or questions from the hospital if needed. SW explained that pt's mother Clara and father Rebel are pt next of Kin and medical decision makers if decisions need to be made. Pat expresses understanding of this. SW provided Pat with the phone number of [facility] for medical updates on pt. Pt's next of kin for medical decision making: Rebel Valdez, father [phone] ([place]) and Clara Mora, mother [phone] ([place]) MARI to follow up with pt after extubation to discuss Health Care POA. ISMA Etienne
[2025-05-06 15:48] LABS: Anion Gap 10 (5-15); Carbon Dioxide 21.0 mmol/L (21.0-32.0); Chloride 105 mmol/L (98-108); Magnesium 2.2 mg/dL (1.5-2.2); Potassium 3.4 mmol/L (3.3-5.1)
[2025-05-06] MEDS: TITRATION PARAMETER CHANGE 1 EACH IV (17:49)
[2025-05-06 18:09] LABS: Anion Gap 10 (5-15); Carbon Dioxide 21.0 mmol/L (21.0-32.0); Chloride 105 mmol/L (98-108); Magnesium 2.3 mg/dL (1.5-2.2); Potassium 3.4 mmol/L (3.3-5.1)
[2025-05-06] MEDS: Norepinephrine 8 MG in 0.9% Normal Saline (250mL Bag) 242 ML 33.8 MG CONT INF (22:07)
[2025-05-07] VITALS (57 sets, daily range): BP systolic 89–160; BP diastolic 45–83; PULSE 47–72; RESP 15–21; TEMP 37.1–37.6; O2SAT 90–100; BMI 34.0
[2025-05-07 03:02] LABS: Hematocrit 27.7 % (40-54); Hemoglobin 9.8 g/dL (13.0-16.5); Immature Granulocytes Count 0.290 X10^3/uL (0.0-0.0); Mean Corp Hgb Conc 35.4 g/dL (32-36); Mean Corpuscular Volume 78.0 fL (80-94); Mean Platelet Vol. 11.2 fl (6.2-12.0); NRBC Flagged by Analyzer 0 % (0-5); Platelet Count 138 K/mm3 (150-450); RBC Distribution Width CV 15.9 % (11.6-14.6); RBC Distribution Width SD 45.3 fl (35.1-43.9); Red Blood Count 3.55 M/mm3 (4.6-6.2); White Blood Count 15.8 K/mm3 (4.4-11.0)
[2025-05-07] MEDS: Propofol 10MG/Ml 1,000 MG/100 ML Bottle 13.7 MG CONT INF ×2 (03:42→08:57)
[2025-05-07 03:56] LABS: AST(SGOT) 85 U/L (<=37); Alanine Aminotransfer ALT/SGPT 30 U/L (<=46); Albumin, Serum 2.5 g/dL (3.5-5.0); Alkaline Phosphatase 102 U/L (40-129); Anion Gap 12 (5-15); BUN 29 mg/dL (4-19); BUN/Creat Ratio 11.3 RATIO (10-20); Calcium,Total 7.7 mg/dL (7.6-11.0); Carbon Dioxide 21.0 mmol/L (21.0-32.0); Chloride 102 mmol/L (98-108); Estimated Creatinine Clearance 41.63 ml/min (50-250); Globulin 3.2 g/dL (2.2-4.2); Glucose 153 mg/dL (70-99); Potassium 3.9 mmol/L (3.3-5.1)
[2025-05-07] MEDS: PUREFLOW B SOLUTION 4K 5,000 ML BAG 9 BAG PF ×2 (04:28→10:56)
[2025-05-07] MEDS: Piperacil/Tazobactam 3.375 GM in 0.9% Normal Saline (50mL MB+) 50 ML IV (05:14)
[2025-05-07] MEDS: Heparin Injection (Vial) 5,000 UNIT/ML VIAL 5000 UNIT SC ×3 (05:16→21:45)
[2025-05-07 05:40] LABS: Allen Test Positive; Base Excess -1 mmol/L (-2 to +2); FI02 30.0; PEEP 5; PO2 82 mmHG (75-100); RR 18; SITE R Radial; SO2 97 % (95-99)
[2025-05-07] MEDS: Norepinephrine 8 MG in 0.9% Normal Saline (250mL Bag) 242 ML 22.5 MG CONT INF (05:46)
--- NOTE | 2025-05-07 07:26 | PN.RENAL_ITS ---
Subjective Subjective Following for dialysis dependent BAR. Patient remains on CRRT. So far, patient is tolerating CRRT well. He is intubated. No significant events overnight per my discussion with RN. Objective Data Objective Data Vital Signs: Vital Signs Temp Pulse Resp BP Pulse Ox O2 Del Method O2 Flow Rate 99 F 53 L 18 131/55 H 100 Mechanical Ventilator 2 05/07/25 07:00 05/07/25 07:15 05/07/25 07:00 05/07/25 07:00 05/07/25 07:00 05/07/25 07:00 05/04/25 14:16 FiO2 30 05/07/25 07:00 Oxygen Flow Rate (L/min) 2 Oxygen Delivery Method Mechanical Ventilator Weight: 113.9 kg Body Mass Index (BMI) 34.0 Intake & Output: Intake and Output for Last 24 Hours 05/05/25 05/06/25 05/07/25 23:59 23:59 23:59 Intake Total 3703.36 / 3741.09 5855.95 / 5905.78 451.42 / 451.42 Output Total 2799 / 2799 3342 / 3357 125 / 125 Balance 904.36 / 942.09 2513.95 / 2548.78 326.42 / 326.42 Lab / Micro Data 05/07/25 02:50 05/07/25 02:50 Labs: Laboratory Results - last 24 hr 05/06/25 07:01: POC Glucose 113 H 05/06/25 07:58: WBC 19.8 H, RBC 3.59 L, Hgb 10.1 L, Hct 27.3 L, MCV 76.0 L, MCH 28.1, MCHC 37.0 H D, RDW Std Deviation 43.3, RDW Coeff of Reinaldo 15.6 H, Plt Count 136 L, MPV 10.9, Immature Gran % (Auto) 3.400 H, Neut % (Auto) 87.3 H, Lymph % (Auto) 4.0 L, [place] % (Auto) 4.9, Eos % (Auto) 0.2, Baso % (Auto) 0.2, Absolute Neuts (auto) 17.3 H, Absolute Lymphs (auto) 0.80 L, Nucleated RBC % 0 05/06/25 08:17: POC Glucose 135 H 05/06/25 08:23: Vancomycin Trough 16.7 H 05/06/25 09:17: POC Glucose 123 H 05/06/25 09:58: POC Glucose 126 H 05/06/25 10:20: Sodium 133, Potassium 3.4, Chloride 103, Carbon Dioxide 19.4 L, Anion Gap 11, BUN 37 H, Creatinine 2.72 H, Estim Creat Clear Calc 38.79 L, Est GFR (MDRD) Non-Af 26 L, BUN/Creatinine Ratio 13.5, Glucose 189 H, Calcium 7.3 L, Phosphorus 2.8, Magnesium 2.1 05/06/25 11:02: POC Glucose 149 H 05/06/25 11:59: POC Glucose 143 H 05/06/25 12:59: POC Glucose 140 H 05/06/25 14:05: POC Glucose 136 H 05/06/25 14:56: Sodium 135, Potassium 3.4, Chloride 105, Carbon Dioxide 21.0, Anion Gap 10, Phosphorus 3.3, Magnesium 2.2 05/06/25 17:44: Sodium 136, Potassium 3.4, Chloride 105, Carbon Dioxide 21.0, Anion Gap 10, Phosphorus 3.0, Magnesium 2.3 H 05/06/25 17:47: POC Glucose 104 05/06/25 23:57: POC Glucose 134 H 05/07/25 02:50: WBC 15.8 H, RBC 3.55 L, Hgb 9.8 L, Hct 27.7 L, MCV 78.0 L, MCH 27.6, MCHC 35.4, RDW Std Deviation 45.3 H, RDW Coeff of Reinaldo 15.9 H, Plt Count 138 L, MPV 11.2, Immature Gran % (Auto) 1.800 H, Neut % (Auto) 86.8 H, Lymph % (Auto) 5.1 L, [place] % (Auto) 6.0, Eos % (Auto) 0.0, Baso % (Auto) 0.3, Absolute Neuts (auto) 13.7 H, Absolute Lymphs (auto) 0.80 L, Nucleated RBC % 0, Sodium 135 05/07/25 02:50: Sodium Cancelled, Potassium 3.9 05/07/25 02:50: Potassium Cancelled, Chloride 102 05/07/25 02:50: Chloride Cancelled, Carbon Dioxide 21.0 05/07/25 02:50: Carbon Dioxide Cancelled, Anion Gap 12 05/07/25 02:50: Anion Gap Cancelled, BUN 29 H 05/07/25 02:50: BUN Cancelled, Creatinine 2.52 H 05/07/25 02:50: Creatinine Cancelled, Estim Creat Clear Calc 41.63 L 05/07/25 02:50: Estim Creat Clear Calc 41.14 L, Est GFR (MDRD) Non-Af 29 L 05/07/25 02:50: Est GFR (MDRD) Non-Af Cancelled, BUN/Creatinine Ratio 11.3 05/07/25 02:50: BUN/Creatinine Ratio Cancelled, Glucose 153 H 05/07/25 02:50: Glucose Cancelled, Calcium 7.7 05/07/25 02:50: Calcium Cancelled, Phosphorus 4.1, Total Bilirubin 1.01, AST 85 H, ALT 30, Alkaline Phosphatase 102, Total Protein 5.7 L, Albumin 2.5 L 05/07/25 02:50: Albumin Cancelled, Globulin 3.2, Albumin/Globulin Ratio 0.8 L 05/07/25 05:30: POC Glucose 137 H Micro: Microbiology 05/04/25 14:05 Blood Culture (Wb) - Anticubital Left Blood Culture - Final GNR lactose catalog library assistant 05/06/25 08:50 Blood Culture (Wb) - Anticubital Right Blood Culture - Preliminary 05/04/25 14:00 Blood Culture (Wb) - Anticubital Right Blood Culture - Final ESBL Escherichia coli 05/04/25 14:51 Sputum, Induced/Lukens Gram Stain - Final 05/04/25 14:51 Sputum, Induced/Lukens Respiratory Culture - Final Staphylococcus aureus 05/04/25 14:31 Urine, Catheterized Urine Culture - Preliminary ESBL Escherichia coli 05/04/25 16:33 Urine, Clean Catch Legionella Antigen - Final 05/04/25 16:33 Urine, Clean Catch Streptococcus pneumoniae Antigen (M - Final 05/04/25 19:16 Nasal Secretion MRSA (PCR) - Final 05/04/25 16:29 Mucosa - Nose Respiratory Panel (PCR) - Final 05/04/25 14:06 Mucosa - Nose SARS-CoV-2, Influenza & RSV (PCR) - Final ABG Data ABG results: ABG 05/07/25 05:37 Specimen Type ART Sample Site R Radial pH 7.46 H Bicarbonate Actual 22.7 Total CO2 24 Base Excess -1 O2 Saturation 97 O2 % 30.0 ABG pCO2 31.9 L ABG pO2 82 Satish Test Positive Respiration Rate 18 O2 Delivery Device ET Tube Vent Mode AC Tidal Volume 600.0 POC PEEP 5 Rhythm Strip Rhythm Strip: Sinus Rhythm Rate: 72 Ectopy: None Physical Exam Narrative On ventilator/intubated no obvious distress no pallor no icterus s1s2 no murmurs lungs coarse to auscultation abdomen soft no organomegaly no edema no cyanosis rogel + Assessment & Plan Assessment/Plan (1) BAR (acute kidney injury): PLAN: Prior to this admission, last known creatinine was 1.5. Came with a creatinine of more than 5. CT abdomen without any hydronephrosis. Urine analysis showed protein and blood but this is likely a Rogel sample. Serologies have been sent but are still all pending. Possibly BAR due to ATN in the setting of severe acidosis and suspected sepsis. Started on CRRT overnight on 05/04/2025 mostly due to acidosis, tolerating well. Continue CRRT. Keep volume even on CRRT. This morning he is on 12 mcg/min of Levophed. (2) High anion gap metabolic acidosis: PLAN: Significantly elevated gap on presentation. Metabolic acidosis is most likely due to shock and renal failure. His beta hydroxybutyrate is also elevated. Blood glucose values noted. Initially there was some concern for toxic alcohol ingestion but it appears unlikely as per history. Even if he has it, CRRT should clear it. Serum bicarbonate level has improved from 2.9 mmol/L on 05/04/2025 up to 21 mmol/L on this morning on 05/07/2025 at 2:50 AM.
[2025-05-07] MEDS: Chlorhexidine 15 ML PO (07:32)
[2025-05-07] MEDS: CHLORHEXIDINE GLUC 2% CLOTH 1 EACH TOWELETTE TOPICAL (07:32)
[2025-05-07] MEDS: Vancomycin Trough/Random Due 1 LAB MC (07:32)
[2025-05-07] MEDS: Pantoprazole Sodium 40 MG in 0.9% Normal Saline (100mL MB+) 100 ML 300 MG IV ×2 (07:34→21:44)
[2025-05-07] MEDS: 0.9% Saline Lock 10 ML Syringe IV (07:40)
[2025-05-07 07:57] LABS: Vancomycin, Trough Level 18.8 ug/mL (5.0-15.0)
--- NOTE | 2025-05-07 08:53 | PN.HOSP_ITS ---
Reason for Visit Chief Complaint: Shortness of breath Objective Data Objective Data Vital Signs: Vital Signs Temp Pulse Resp BP Pulse Ox O2 Del Method O2 Flow Rate 99 F 51 L 18 131/55 H 100 Mechanical Ventilator 2 05/07/25 07:00 05/07/25 07:27 05/07/25 07:27 05/07/25 07:00 05/07/25 07:27 05/07/25 07:00 05/04/25 14:16 FiO2 30 05/07/25 07:00 Oxygen Flow Rate (L/min) 2 Oxygen Delivery Method Mechanical Ventilator Weight: 251 lb 1.704 oz Body Mass Index (BMI) 34.0 Intake & Output: Intake and Output for Last 24 Hours 05/05/25 05/06/25 05/07/25 23:59 23:59 23:59 Intake Total 3703.36 / 3741.09 5855.95 / 5905.78 451.42 / 451.42 Output Total 2799 / 2799 3342 / 3357 494 / 494 Balance 904.36 / 942.09 2513.95 / 2548.78 -42.58 / -42.58 Lab / Micro Data 05/07/25 02:50 05/07/25 02:50 Labs: Laboratory Results - last 24 hr 05/06/25 08:23: Vancomycin Trough 16.7 H 05/06/25 09:17: POC Glucose 123 H 05/06/25 09:58: POC Glucose 126 H 05/06/25 10:20: Sodium 133, Potassium 3.4, Chloride 103, Carbon Dioxide 19.4 L, Anion Gap 11, BUN 37 H, Creatinine 2.72 H, Estim Creat Clear Calc 38.79 L, Est GFR (MDRD) Non-Af 26 L, BUN/Creatinine Ratio 13.5, Glucose 189 H, Calcium 7.3 L, Phosphorus 2.8, Magnesium 2.1 05/06/25 11:02: POC Glucose 149 H 05/06/25 11:59: POC Glucose 143 H 05/06/25 12:59: POC Glucose 140 H 05/06/25 14:05: POC Glucose 136 H 05/06/25 14:56: Sodium 135, Potassium 3.4, Chloride 105, Carbon Dioxide 21.0, Anion Gap 10, Phosphorus 3.3, Magnesium 2.2 05/06/25 17:44: Sodium 136, Potassium 3.4, Chloride 105, Carbon Dioxide 21.0, Anion Gap 10, Phosphorus 3.0, Magnesium 2.3 H 05/06/25 17:47: POC Glucose 104 05/06/25 23:57: POC Glucose 134 H 05/07/25 02:50: WBC 15.8 H, RBC 3.55 L, Hgb 9.8 L, Hct 27.7 L, MCV 78.0 L, MCH 27.6, MCHC 35.4, RDW Std Deviation 45.3 H, RDW Coeff of Reinaldo 15.9 H, Plt Count 138 L, MPV 11.2, Immature Gran % (Auto) 1.800 H, Neut % (Auto) 86.8 H, Lymph % (Auto) 5.1 L, [place] % (Auto) 6.0, Eos % (Auto) 0.0, Baso % (Auto) 0.3, Absolute Neuts (auto) 13.7 H, Absolute Lymphs (auto) 0.80 L, Nucleated RBC % 0, Sodium 135 05/07/25 02:50: Sodium Cancelled, Potassium 3.9 05/07/25 02:50: Potassium Cancelled, Chloride 102 05/07/25 02:50: Chloride Cancelled, Carbon Dioxide 21.0 05/07/25 02:50: Carbon Dioxide Cancelled, Anion Gap 12 05/07/25 02:50: Anion Gap Cancelled, BUN 29 H 05/07/25 02:50: BUN Cancelled, Creatinine 2.52 H 05/07/25 02:50: Creatinine Cancelled, Estim Creat Clear Calc 41.63 L 05/07/25 02:50: Estim Creat Clear Calc 41.14 L, Est GFR (MDRD) Non-Af 29 L 05/07/25 02:50: Est GFR (MDRD) Non-Af Cancelled, BUN/Creatinine Ratio 11.3 05/07/25 02:50: BUN/Creatinine Ratio Cancelled, Glucose 153 H 05/07/25 02:50: Glucose Cancelled, Calcium 7.7 05/07/25 02:50: Calcium Cancelled, Phosphorus 4.1, Total Bilirubin 1.01, AST 85 H, ALT 30, Alkaline Phosphatase 102, Total Protein 5.7 L, Albumin 2.5 L 05/07/25 02:50: Albumin Cancelled, Globulin 3.2, Albumin/Globulin Ratio 0.8 L 05/07/25 05:30: POC Glucose 137 H 05/07/25 07:30: Vancomycin Trough 18.8 H Micro: Microbiology 05/04/25 14:31 Urine, Catheterized Urine Culture - Final ESBL Escherichia coli 05/06/25 08:50 Blood Culture (Wb) - Anticubital Right Blood Culture - Preliminary 05/04/25 14:05 Blood Culture (Wb) - Anticubital Left Blood Culture - Final GNR lactose professional skater 05/04/25 14:00 Blood Culture (Wb) - Anticubital Right Blood Culture - Final ESBL Escherichia coli 05/04/25 14:51 Sputum, Induced/Lukens Gram Stain - Final 05/04/25 14:51 Sputum, Induced/Lukens Respiratory Culture - Final Staphylococcus aureus 05/04/25 16:33 Urine, Clean Catch Legionella Antigen - Final 05/04/25 16:33 Urine, Clean Catch Streptococcus pneumoniae Antigen (M - Final 05/04/25 19:16 Nasal Secretion MRSA (PCR) - Final 05/04/25 16:29 Mucosa - Nose Respiratory Panel (PCR) - Final 05/04/25 14:06 Mucosa - Nose SARS-CoV-2, Influenza & RSV (PCR) - Final ABG Data ABG results: ABG 05/07/25 05:37 Specimen Type ART Sample Site R Radial pH 7.46 H Bicarbonate Actual 22.7 Total CO2 24 Base Excess -1 O2 Saturation 97 O2 % 30.0 ABG pCO2 31.9 L ABG pO2 82 Satish Test Positive Respiration Rate 18 O2 Delivery Device ET Tube Vent Mode AC Tidal Volume 600.0 POC PEEP 5 Rhythm Strip Rhythm Strip: Sinus Rhythm Rate: 72 Ectopy: None Physical Exam Narrative Seen and examined. Patient is intubated. On FiO2 30%/600/5. Patient maxed on Levophed drip 25 mics per minute. BP 124/48. Bradycardia, heart rate in 50s. Urine dark yellow in Rasmussen catheter. On CRRT through right IJ temporary dialysis catheter. But later on patient had CVC catheter in right femoral vein and started on Levophed drip. Physical exam General: Awake/mildly drowsy on propofol and fentanyl HEENT: Atraumatic. Normocephalic. Oral: ETT and OG tube Neck: Supple, No JVD, Negative Carotid Bruits Chest wall/Lungs: Right IJ dialysis catheter. Air entry diminished in bilateral lung bases. No crepitation/rhonchi Cardiovascular: Regular sinus rhythm. Systolic murmur with radiation to carotid Abdomen: Bowel Sounds sluggish soft, Non Tender, Non-Distended : Anuria. Rasmussen catheter dark-colored on CRRT. No suprapubic tenderness. Extremities: Right femoral TLC catheter. 2+ pedal edema, Capillary Refill Less than 3 Seconds Skin: No rashes, No breakdown Musculoskeletal: No Tenderness to Palpation of Joints or Extremities. Lower extremities weak but on light sedation Neurological: Neuroexam unobtainable significant Psych/Mental Status: Sedated Assessment & Plan Assessment/Plan (1) Acute renal failure: (2) High anion gap metabolic acidosis: (3) Acute respiratory failure: PLAN: Plan Patient is a 60-year-old male who presented to [facility] ED on 05/04/2025 with worsening shortness of breath. 1. Acute hypoxic respiratory failure possible secondary to community-acquired pneumonia: Patient being admitted to ICU. On ventilator. FiO2 30%/450/12/5. Patient is on respiratory rate 24/min. CT abdomen shows small bilateral pleural effusion and patchy scattered opacity within bilateral lungs. Glassine Machine Tender is consulted. Vent management as per olive packer 05/06: Remain on the similar vent setting like yesterday. ABG 7.4/33/53 on 21%/600/5. 05/07: Patient is responding as per nursing staff. Shows some spontaneous movement vent settings similar to yesterday. 2. Septic shock suspected secondary to community-acquired pneumonia probably from GNR bacteremia and Staph aureus pneumonia: The patient presented with sepsis with clinical indicators of leukocytosis due to community-acquired pneumonia with acute sepsis-related organ dysfunction as evidenced by elevated lactic acid, profound anion gap metabolic acidosis, Acute hypoxic respiratory failure intubation, acute kidney injury and coagulopathy. Empirically on IV vancomycin and Zosyn Chest x-ray initially reviewed and shows mild bilateral lower lungs infiltrates Both blood culture bottles aerobic and anaerobic growing GNR. Urine culture prelim positive E. coli more than 100,000 colonies. Gram stain sputum culture Staph aureus 3+. Respiratory panel and urinary antigens and MRSA PCR negative. 05/06: Currently on broad-spectrum antibiotic. ID consult on Thursday. Low-grade temperature 99.4 ?F on 05/06. 05/07: Blood culture growing ESBL E. coli resistant to xiomy quinolone and ampicillin group therefore antibiotic changed to IV meropenem. Respiratory sputum culture growing MSSA therefore vancomycin and Zosyn discontinued. Discussed with ID. Discussed with pharmacy regarding dosing of meropenem as per kidney failure on CRRT. Patient is still on Levophed drip currently at 10 mics per minute 2. Acute renal failure with high anion gap metabolic acidosis ? Nephrology consulted. Creatinine 5.48, BUN 97 on admit. Baseline creatinine appears to be around 1.0. Initial ABG with pH 6.93, pCO2 7. Bicarb 2.9 on BMP. 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 Mild lactic acid elevation of 2.2. Beta hydroxybutyrate only mildly elevated at 2.9. In ED, patient received 2 L of IV fluid bolus, Rasmussen catheter was inserted but still minimal urine/anuria. Repeat ABG pH 6.8. Had 2 Amp of bicarb and initiated bicarb drip. Sorting Cows Worker consulted. On hemodialysis CRRT 05/07: Discussed with Dr. Puga, the tow motor operator. Continue CRRT. Patient has urine output gradually increasing 345 mL yesterday and 165 mL since midnight today CT abdomen was done which shows bilateral small pleural effusion with adjacent atelectasis, patchy scattered opacity within bilateral lungs concerning for underlying infectious or inflammatory process. Widespread colonic diverticulosis with mild stranding on right ascending colon suspicious for early evolving acute diverticulitis. Small nonobstructing right lower lobe renal calculus. Bilateral perinephric stranding right more than left 3. Type 2 diabetes mellitus ? Blood glucose 150 on admit. A1c 6.6%. Hold home metformin. Accu-Chek before meals and at bedtime with Humalog sliding scale coverage and hypoglycemia protocol. 05/06: Glucose 192. Patient had D10 yesterday night for hypoglycemia 05/07: Glucoses controlled. Continue IV insulin because stool on Levophed drip 4. Tobacco dependence ? Smokes about 1 pack of cigarettes daily. Has smoked for many years. Nicotine replacement therapy will be available if needed and will need to discuss cessation with patient on discharge. 5. Class I obesity ? BMI 33 on admit. Complicates hospital course and care. DVT prophylaxis: Heparin subcu 538 every 8 hourly CODE STATUS: Full code, verified 05/07: Microbiology Past 72 Hours 05/04/25 14:31 Urine, Catheterized Urine Culture - Final ESBL Escherichia coli 05/06/25 08:50 Blood Culture (Wb) - Anticubital Right Blood Culture - Preliminary 05/04/25 14:05 Blood Culture (Wb) - Anticubital Left Blood Culture - Final GNR lactose professional skater 05/04/25 14:00 Blood Culture (Wb) - Anticubital Right Blood Culture - Final ESBL Escherichia coli 05/04/25 14:51 Sputum, Induced/Lukens Gram Stain - Final 05/04/25 14:51 Sputum, Induced/Lukens Respiratory Culture - Final Staphylococcus aureus 05/04/25 16:33 Urine, Clean Catch Legionella Antigen - Final 05/04/25 16:33 Urine, Clean Catch Streptococcus pneumoniae Antigen (M - Final 05/04/25 19:16 Nasal Secretion MRSA (PCR) - Final 05/04/25 16:29 Mucosa - Nose Respiratory Panel (PCR) - Final 05/04/25 14:06 Mucosa - Nose SARS-CoV-2, Influenza & RSV (PCR) - Final Laboratory Results 05/06/25 09:17: POC Glucose 123 H 05/06/25 09:58: POC Glucose 126 H 05/06/25 10:20: Sodium 133, Potassium 3.4, Chloride 103, Carbon Dioxide 19.4 L, Anion Gap 11, BUN 37 H, Creatinine 2.72 H, Estim Creat Clear Calc 38.79 L, Est GFR (MDRD) Non-Af 26 L, BUN/Creatinine Ratio 13.5, Glucose 189 H, Calcium 7.3 L, Phosphorus 2.8, Magnesium 2.1 05/06/25 11:02: POC Glucose 149 H 05/06/25 11:59: POC Glucose 143 H 05/06/25 12:59: POC Glucose 140 H 05/06/25 14:05: POC Glucose 136 H 05/06/25 14:56: Sodium 135, Potassium 3.4, Chloride 105, Carbon Dioxide 21.0, Anion Gap 10, Phosphorus 3.3, Magnesium 2.2 05/06/25 17:44: Sodium 136, Potassium 3.4, Chloride 105, Carbon Dioxide 21.0, Anion Gap 10, Phosphorus 3.0, Magnesium 2.3 H 05/06/25 17:47: POC Glucose 104 05/06/25 23:57: POC Glucose 134 H 05/07/25 02:50: WBC 15.8 H, RBC 3.55 L, Hgb 9.8 L, Hct 27.7 L, MCV 78.0 L, MCH 27.6, MCHC 35.4, RDW Std Deviation 45.3 H, RDW Coeff of Reinaldo 15.9 H, Plt Count 138 L, MPV 11.2, Immature Gran % (Auto) 1.800 H, Neut % (Auto) 86.8 H, Lymph % (Auto) 5.1 L, [place] % (Auto) 6.0, Eos % (Auto) 0.0, Baso % (Auto) 0.3, Absolute Neuts (auto) 13.7 H, Absolute Lymphs (auto) 0.80 L, Nucleated RBC % 0, Sodium 135 05/07/25 02:50: Sodium Cancelled 05/07/25 02:50: Sodium Pending, Potassium 3.9 05/07/25 02:50: Potassium Cancelled 05/07/25 02:50: Potassium Pending, Chloride 102 05/07/25 02:50: Chloride Cancelled 05/07/25 02:50: Chloride Pending, Carbon Dioxide 21.0 05/07/25 02:50: Carbon Dioxide Cancelled 05/07/25 02:50: Carbon Dioxide Pending, Anion Gap 12 05/07/25 02:50: Anion Gap Cancelled 05/07/25 02:50: Anion Gap Pending, BUN 29 H 05/07/25 02:50: BUN Cancelled 05/07/25 02:50: BUN Pending, Creatinine 2.52 H 05/07/25 02:50: Creatinine Cancelled 05/07/25 02:50: Creatinine Pending, Estim Creat Clear Calc 41.63 L 05/07/25 02:50: Estim Creat Clear Calc 41.14 L, Est GFR (MDRD) Non-Af 29 L 05/07/25 02:50: Est GFR (MDRD) Non-Af Cancelled 05/07/25 02:50: Est GFR (MDRD) Non-Af Pending, BUN/Creatinine Ratio 11.3 05/07/25 02:50: BUN/Creatinine Ratio Cancelled 05/07/25 02:50: BUN/Creatinine Ratio Pending, Glucose 153 H 05/07/25 02:50: Glucose Cancelled 05/07/25 02:50: Glucose Pending, Calcium 7.7 05/07/25 02:50: Calcium Cancelled 05/07/25 02:50: Calcium Pending, Phosphorus 4.1 05/07/25 02:50: Phosphorus Pending, Total Bilirubin 1.01, AST 85 H, ALT 30, Alkaline Phosphatase 102, Total Protein 5.7 L, Albumin 2.5 L 05/07/25 02:50: Albumin Cancelled 05/07/25 02:50: Albumin Pending, Globulin 3.2, Albumin/Globulin Ratio 0.8 L 05/07/25 05:30: POC Glucose 137 H 05/07/25 05:37: Specimen Type ART, Sample Site R Radial, pH 7.46 H, Bicarbonate Actual 22.7, Total CO2 24, Base Excess -1, O2 Saturation 97, O2 % 30.0, ABG pCO2 31.9 L, ABG pO2 82, Satish Test Positive, Respiration Rate 18, O2 Delivery Device ET Tube, Vent Mode AC, Tidal Volume 600.0, POC PEEP 5 05/07/25 07:30: Vancomycin Trough 18.8 H Charges/Coding Visit Charges Inpatient E&M: 79851 Subs Hosp L3
[2025-05-07] MEDS: fentaNYL drip 100 ML 12.5 MCG CONT INF (10:17)
--- NOTE | 2025-05-07 10:40 | PN.CC_ITS ---
Objective Data Objective Data Vital Signs: Vital Signs Last response 3 Temperature 37.2 C 05/07/25 10:00 Temperature Source Core 05/07/25 10:00 Pulse Rate 52 L 05/07/25 10:00 Pulse Strength Weak (1+) 05/07/25 07:50 Respiratory Rate 18 05/07/25 10:00 Respiratory Effort Mechanically Ventilated 05/07/25 08:00 Respiratory Depth Normal 05/07/25 08:00 Respiratory Pattern Normal 05/07/25 09:09 Blood Pressure 112/57 L 05/07/25 10:00 Blood Pressure Mean 75 05/07/25 10:00 Blood Pressure Source Monitor 05/07/25 03:45 Blood Pressure Position Semi-Fowlers 05/07/25 07:00 Blood Pressure Location Left Arm 05/07/25 07:00 Pulse Ox 100 05/07/25 10:00 Oxygen Delivery Method Mechanical Ventilator 05/07/25 10:00 Oxygen Flow Rate (L/min) 2 05/04/25 14:16 Fraction of Inspired Oxygen (FIO2) 30 05/07/25 10:00 I&O: I&O Last 24 Hours 3 05/06/25 05/06/25 05/07/25 11:59 23:59 11:59 Intake Total 3675.77 / 5905.78 2180.18 / 5905.78 733.01 / 733.01 Output Total 689 / 3357 2653 / 3357 1160 / 1160 Balance 2986.77 / 2548.78 -472.82 / 2548.78 -426.99 / -426.99 I&O: Total Stay 3 05/04/25 12:45 thru 05/07/25 10:30 Intake Total 66597.09 Output Total 8273 Balance 5876.09 Current Meds Ordered / Administered: Current meds ordered / Administered 3 Generic Name Dose Route Start Last Admin Trade Name Freq PRN Reason Stop Dose Admin Acetaminophen 650 mg 05/04/25 16:20 Acetaminophen 325 Mg Tablet GT Q6H PRN PRN Pain 1-10 Or Fever>100.7 Albuterol/Ipratropium 3 ml 05/05/25 00:00 05/07/25 07:27 Ipratropium/Albuterol Sulfate 3 Ml Ampul.Neb INHALATION 3 ml Q6H.RT CHERIE Administration CRRT Dialysis Solution 9 bag 05/04/25 20:24 05/07/25 04:28 Pureflow B Solution 4k 5,000 Ml Bag PF 6 bag UD PRN Administration CRRT Protocol Chlorhexidine Gluconate 15 ml 05/04/25 22:00 05/07/25 07:32 Chlorhexidine 15 Ml PO 15 ml BID CHERIE Administration Chlorhexidine Gluconate 1 each 05/05/25 10:00 05/07/25 07:32 Chlorhexidine Gluc 2% Cloth 1 Each [place]elette TOPICAL 1 each DAILY CHERIE Administration Fentanyl Citrate 50 mcg 05/04/25 16:20 Fentanyl 100 Mcg/2 Ml Ampul IV Q2H PRN PRN Pain >/= 4/10 or CPOT>/= 3/8 Glucagon 1 mg 05/04/25 16:20 Glucagon 1 Mg/Ml Syringe IM X1 PRN Hypoglycemia Protocol Heparin Sodium (Porcine) 0 units 05/04/25 20:24 05/05/25 00:21 Heparin 10,000 Units/10 Ml Vial IV 2,600 units X1 PRN Administration Emergency Dialysis Catheter DC Heparin Sodium (Porcine) 5,000 unit 05/05/25 14:00 05/07/25 05:16 Heparin Injection (Vial) 5,000 Unit/Ml Vial SC 5,000 unit Q8 CHERIE Administration Hydrocortisone Sodium Succinate 50 mg 05/06/25 18:00 05/07/25 05:16 Hydrocortisone Sod Succinate 100 Mg/2 Ml Vial IV 50 mg Q6 CHERIE Administration Propofol 1,000 mg in 100 mls @ 6.834 mls/hr 05/04/25 14:45 05/07/25 10:00 Diprivan CONT INF 20 mcg/kg/min .Q12H CHERIE 13.7 mls/hr Protocol Titration 10 MCG/KG/MIN Dextrose 250 mls @ 0 mls/hr 05/04/25 16:20 05/06/25 01:11 Dextrose 10%-Water IV 0 mls/hr .Q0M PRN Infusion HYPOGLYCEMIA Protocol As Directed Sodium Chloride 250 mls @ 15 mls/hr 05/04/25 16:27 IV .[id number] PRN Saline Flush Sodium Chloride 250 mls @ 15 mls/hr 05/04/25 16:27 IV .[id number] PRN Additional IVPB Infusion Fentanyl 100 mls @ 5 mls/hr 05/04/25 19:25 05/07/25 10:30 CONT INF 125 mcg/hr UD CHERIE 12.5 mls/hr Protocol Titration 50 MCG/HR Magnesium Sulfate 4 gm in 100 mls @ 25 mls/hr 05/04/25 20:24 IV X1 PRN Magnesium level < 1.6mg/dl Sodium Phosphate 30 mmol/ 260 mls @ 62.5 mls/hr 05/04/25 20:24 05/06/25 14:15 Sodium Chloride IV Infused X1 PRN Infusion Phosphorus Level <2.5 Potassium Chloride 40 meq/ 270 mls @ 135 mls/hr 05/04/25 20:24 05/06/25 11:30 Sodium Chloride IV Infused X1 PRN Infusion K+ <3.5 mEq/L Norepinephrine Bitartrate 8 mg 250 mls @ 9.375 mls/hr 05/04/25 23:50 05/07/25 10:00 / Sodium Chloride CONT INF 10 mcg/min .[id number] CHERIE 18.8 mls/hr Protocol Titration 5 MCG/MIN Pantoprazole Sodium 40 mg/ 100 mls @ 300 mls/hr 05/05/25 10:00 05/07/25 08:54 Sodium Chloride IV Infused Q12 CHERIE Infusion Dextrose 250 mls @ 0 mls/hr 05/05/25 10:51 Dextrose 10%-Water IV .Q0M PRN HYPOGLYCEMIA Protocol As Directed Meropenem 1 gm/ Sodium 100 mls @ 33 mls/hr 05/07/25 10:00 Chloride IV Q8 [facility] Insulin Human Lispro 0 unit 05/06/25 18:00 05/07/25 05:34 Insulin Lispro 100 Unit/Ml Insuln.Pen SC Not Given Q6 [facility] Protocol Melatonin 3 mg 05/04/25 16:20 Melatonin 3 Mg Tablet PO QHS PRN PRN INSOMNIA Ondansetron HCl 4 mg 05/04/25 16:20 Ondansetron 4 Mg/2 Ml Vial IV Q8H PRN PRN NAUSEA/VOMITING Sodium Chloride 10 - 40 ml 05/04/25 16:27 05/07/25 07:40 0.9% Saline Lock 10 Ml Syringe IV 40 ml UD PRN Administration SALINE FLUSH Sodium Chloride 20 ml 05/04/25 20:24 0.9% Saline Lock 10 Ml Syringe IV UD PRN Emergency Dialysis Catheter DC Sodium Chloride 50 - 100 ml 05/04/25 20:24 0.9% Normal Saline 1,000 Ml Iv.Soln. IV UD PRN CRRT System Flush Lab / Micro Data 05/07/25 02:50 05/07/25 02:50 Labs: Laboratory Results - last 24 hr 05/06/25 10:20: Sodium 133, Potassium 3.4, Chloride 103, Carbon Dioxide 19.4 L, Anion Gap 11, BUN 37 H, Creatinine 2.72 H, Estim Creat Clear Calc 38.79 L, Est GFR (MDRD) Non-Af 26 L, BUN/Creatinine Ratio 13.5, Glucose 189 H, Calcium 7.3 L, Phosphorus 2.8, Magnesium 2.1 05/06/25 11:02: POC Glucose 149 H 05/06/25 11:59: POC Glucose 143 H 05/06/25 12:59: POC Glucose 140 H 05/06/25 14:05: POC Glucose 136 H 05/06/25 14:56: Sodium 135, Potassium 3.4, Chloride 105, Carbon Dioxide 21.0, Anion Gap 10, Phosphorus 3.3, Magnesium 2.2 05/06/25 17:44: Sodium 136, Potassium 3.4, Chloride 105, Carbon Dioxide 21.0, Anion Gap 10, Phosphorus 3.0, Magnesium 2.3 H 05/06/25 17:47: POC Glucose 104 05/06/25 23:57: POC Glucose 134 H 05/07/25 02:50: WBC 15.8 H, RBC 3.55 L, Hgb 9.8 L, Hct 27.7 L, MCV 78.0 L, MCH 27.6, MCHC 35.4, RDW Std Deviation 45.3 H, RDW Coeff of Reinaldo 15.9 H, Plt Count 138 L, MPV 11.2, Immature Gran % (Auto) 1.800 H, Neut % (Auto) 86.8 H, Lymph % (Auto) 5.1 L, [place] % (Auto) 6.0, Eos % (Auto) 0.0, Baso % (Auto) 0.3, Absolute Neuts (auto) 13.7 H, Absolute Lymphs (auto) 0.80 L, Nucleated RBC % 0, Sodium 135 05/07/25 02:50: Sodium Cancelled, Potassium 3.9 05/07/25 02:50: Potassium Cancelled, Chloride 102 05/07/25 02:50: Chloride Cancelled, Carbon Dioxide 21.0 05/07/25 02:50: Carbon Dioxide Cancelled, Anion Gap 12 05/07/25 02:50: Anion Gap Cancelled, BUN 29 H 05/07/25 02:50: BUN Cancelled, Creatinine 2.52 H 05/07/25 02:50: Creatinine Cancelled, Estim Creat Clear Calc 41.63 L 05/07/25 02:50: Estim Creat Clear Calc 41.14 L, Est GFR (MDRD) Non-Af 29 L 05/07/25 02:50: Est GFR (MDRD) Non-Af Cancelled, BUN/Creatinine Ratio 11.3 05/07/25 02:50: BUN/Creatinine Ratio Cancelled, Glucose 153 H 05/07/25 02:50: Glucose Cancelled, Calcium 7.7 05/07/25 02:50: Calcium Cancelled, Phosphorus 4.1, Total Bilirubin 1.01, AST 85 H, ALT 30, Alkaline Phosphatase 102, Total Protein 5.7 L, Albumin 2.5 L 05/07/25 02:50: Albumin Cancelled, Globulin 3.2, Albumin/Globulin Ratio 0.8 L 05/07/25 05:30: POC Glucose 137 H 05/07/25 07:30: Vancomycin Trough 18.8 H Micro: Microbiology 05/04/25 14:31 Urine, Catheterized Urine Culture - Final ESBL Escherichia coli 05/06/25 08:50 Blood Culture (Wb) - Anticubital Right Blood Culture - Preliminary 05/04/25 14:05 Blood Culture (Wb) - Anticubital Left Blood Culture - Final GNR lactose head esthetician 05/04/25 14:00 Blood Culture (Wb) - Anticubital Right Blood Culture - Final ESBL Escherichia coli 05/04/25 14:51 Sputum, Induced/Lukens Gram Stain - Final 05/04/25 14:51 Sputum, Induced/Lukens Respiratory Culture - Final Staphylococcus aureus ABG Data ABG results: ABG 05/07/25 05:37 Specimen Type ART Sample Site R Radial pH 7.46 H Bicarbonate Actual 22.7 Total CO2 24 Base Excess -1 O2 Saturation 97 O2 % 30.0 ABG pCO2 31.9 L ABG pO2 82 Satish Test Positive Respiration Rate 18 O2 Delivery Device ET Tube Vent Mode AC Tidal Volume 600.0 POC PEEP 5 Rhythm Strip Rhythm Strip: Sinus Rhythm Rate: 72 Ectopy: None Assessment and Plan . Assessment and plan: 60 M w/ asthma, DM, tobacco use who was admitted for respiratory failure. History obtained from chart as pt intubated, no family at bedside. He reportedly had a flulike illness about 1 week ago, associated with URI sx and N/V. He then developed worsening dyspnea over past few days. Saw PCP in office yesterday and was given Z-toshia, only took 1 dose of this. He then developed significant worsening dyspnea this AM prompting him to call EMS. He was tachypneic and with SBP 200s on arrival here. He was also noted to have severe metabolic acidosis with pH < 7 and severe BAR. He was reportedly awake and able to follow commands on arrival. He failed attempt at BiPAP and was ultimately intubated. Nephrology was consulted per IM and pt was started on CRRT this evening. 05/07/25 Patient seen and examined. Chart and data reviewed. Sedated- he responds but becomes very restless when awakened more Weaning NE down- lower requirement today CRRT w/ UF ongoing MV reviewed- Ve higher today - teens CX and data reviewed- chemistry pending today Physical Exam: Gen - NAD, obese, intubated HEENT - MMM. ETT in place. PERRL Resp - Diminished BS. Mechanically ventilated CV - RRR. No m/g/r Abd - Soft, NT, ND Ext - No c/c/e. Skin - No rashes? Neuro - Sedated, intubated ASSESSMENT: # Acute hypoxic respiratory failure requiring MV support # Sepsis # UTI/bacteremia- ESBL producing GNR # Pulmonary bibasilar infiltrates - favor atelectasis # AGMA - suspect primarily from renal failure # Severe BAR- CRRT initiated # Possible early acute diverticulitis? - noted on CT # Coffee ground OG output # Hepatic steatosis # Asthma # DM - A1c 6.6% # Lung nodule # Tobacco use -MV support- SBT once reasonably calm and cooperative w/ SAT -sedation / analgesia as needed -CRRT w/ UF as tolerated -sq insulin -wean NE off -IV hydrocortisone -ABX - consider carbapenem, could probably stop vancomycin as well -PPI -probably OK to try enteral nutrition -VTE ppx Critical Care Time: 50 minutes The entirety of this encounter was done via Telemedicine
[2025-05-07 12:02] LABS: Albumin, Serum 2.5 g/dL (3.5-5.0); Anion Gap 14 (5-15); BUN 33 mg/dL (4-19); BUN/Creat Ratio 13.2 RATIO (10-20); Calcium,Total 7.9 mg/dL (7.6-11.0); Carbon Dioxide 20.6 mmol/L (21.0-32.0); Chloride 102 mmol/L (98-108); Estimated Creatinine Clearance 42.65 ml/min (50-250); Glucose 156 mg/dL (70-99); Potassium 4.1 mmol/L (3.3-5.1)
[2025-05-07] MEDS: Meropenem 1 GM in 0.9% Normal Saline (100mL MB+) 100 ML IV ×2 (12:02→21:44)
--- NOTE | 2025-05-07 12:55 | NURSING ---
respiratory therapy and this RN at bedside, extubated patient at 1252, placed on 2L NC, restraints and OG discontinued.
[2025-05-07 16:33] LABS: Albumin, Serum 2.5 g/dL (3.5-5.0); Anion Gap 12 (5-15); BUN 39 mg/dL (4-19); BUN/Creat Ratio 14.1 RATIO (10-20); Calcium,Total 7.7 mg/dL (7.6-11.0); Carbon Dioxide 21.8 mmol/L (21.0-32.0); Chloride 104 mmol/L (98-108); Estimated Creatinine Clearance 38.15 ml/min (50-250); Glucose 131 mg/dL (70-99); Potassium 4.0 mmol/L (3.3-5.1)
[2025-05-08] VITALS (24 sets, daily range): BP systolic 103–173; BP diastolic 28–85; PULSE 52–74; RESP 12–22; TEMP 35.8–37.2; O2SAT 94–100; BMI 33.0; BMI 32.3
[2025-05-08 03:15] LABS: Hematocrit 24.4 % (40-54); Hemoglobin 8.3 g/dL (13.0-16.5); Immature Granulocytes Count 0.160 X10^3/uL (0.0-0.0); Mean Corp Hgb Conc 34.0 g/dL (32-36); Mean Corpuscular Volume 79.5 fL (80-94); Mean Platelet Vol. 10.9 fl (6.2-12.0); NRBC Flagged by Analyzer 0 % (0-5); Platelet Count 108 K/mm3 (150-450); RBC Distribution Width CV 15.6 % (11.6-14.6); RBC Distribution Width SD 45.3 fl (35.1-43.9); Red Blood Count 3.07 M/mm3 (4.6-6.2); White Blood Count 9.1 K/mm3 (4.4-11.0)
[2025-05-08 03:34] LABS: AST(SGOT) 68 U/L (<=37); Alanine Aminotransfer ALT/SGPT 31 U/L (<=46); Albumin, Serum 2.4 g/dL (3.5-5.0); Alkaline Phosphatase 82 U/L (40-129); Anion Gap 11 (5-15); Anion Gap 12 (5-15); BUN 53 mg/dL (4-19); BUN/Creat Ratio 15.7 RATIO (10-20); BUN/Creat Ratio 15.9 RATIO (10-20); Calcium,Total 7.3 mg/dL (7.6-11.0); Carbon Dioxide 21.3 mmol/L (21.0-32.0); Carbon Dioxide 21.7 mmol/L (21.0-32.0); Chloride 104 mmol/L (98-108); Estimated Creatinine Clearance 31.04 ml/min (50-250); Estimated Creatinine Clearance 31.70 ml/min (50-250); Globulin 3.0 g/dL (2.2-4.2); Glucose 136 mg/dL (70-99); Glucose 138 mg/dL (70-99); Potassium 3.9 mmol/L (3.3-5.1); Potassium 4.0 mmol/L (3.3-5.1)
[2025-05-08] MEDS: Meropenem 1 GM in 0.9% Normal Saline (100mL MB+) 100 ML IV ×2 (05:17→14:46)
[2025-05-08] MEDS: Heparin Injection (Vial) 5,000 UNIT/ML VIAL 5000 UNIT SC ×3 (05:19→21:52)
--- NOTE | 2025-05-08 07:28 | PCM.PN.INT ---
Assessment & Plan Assessment/Plan (1) Acute respiratory failure: (2) High anion gap metabolic acidosis: (3) Acute respiratory alkalosis: PLAN: Plan RECOMMENDATIONS: 1. Continue to wean supplemental oxygen to maintain saturations at or above 90%. 2. Okay to discontinue stress dose steroids. 3. Antimicrobial management per ID recommendations. 4. Dialysis support per nephrology recommendations. 5. Continue appropriate DVT prophylaxis. 6. Encourage incentive spirometer use and mobilize patient as tolerated. 7. The patient is medically stable for transfer out of the ICU. Will sign off at this time. IMPRESSIONS: 1. Septic shock Resolved. The patient initially presented to the hospital with a profound metabolic acidosis and inability to compensate from a respiratory perspective. The patient did have evidence of ESBL E. coli UTI with secondary bacteremia along with Staphylococcus aureus isolated from sputum culture. The patient has improved with supportive care including antimicrobial therapy. He has been weaned from vasopressor support and remains hemodynamically stable. Antimicrobials will be continued under the discretion of infectious diseases. 2. Acute hypoxemic respiratory failure/acute respiratory alkalosis Improved. As noted above, the patient presented with a significant anion gap metabolic acidosis in the setting of BAR and was attempting to compensate from a respiratory perspective. Ultimately, the patient was emergently intubated in the emergency department. There were questionable infiltrates noted on imaging. With correction of the patient's underlying metabolic derangements, he was able to be successfully extubated on May 07. Recommend continuing to wean supplemental oxygen to maintain saturations at or above 90%. 3. Acute kidney injury/high anion gap metabolic acidosis Exact precipitating etiology is not entirely clear. Nevertheless, I do suspect that the presentation is likely multifactorial. The patient was clearly in septic shock with questionable DKA, all of which has resolved. Plan to continue dialysis support per nephrology recommendations. 4. History of diabetes mellitus/history of alcohol and tobacco dependency/questionable asthma/obesity Complicates care, management, recovery and prognosis. Continue supportive measures as noted above. This note was generated with Reelation dictation software. It may contain incorrect words, spelling, and punctuation that were not noted in checking the note before signing. Subjective Subjective The patient was seen and examined at the bedside this morning. Events from the last 24 hours have been reviewed. The patient is currently afebrile, hemodynamically stable and maintaining appropriate oxygen saturations on 4 L/min via nasal cannula. The patient is doing well from a respiratory perspective following extubation. He is currently documented to be overall net +5.2 L for the hospitalization. White blood cell count is normal. Hemoglobin and platelet count are stable. Serum bicarbonate is within normal limits. Objective Data Objective Data The patient's most recent lab work, culture data and imaging studies have all been personally reviewed. Urine culture was positive for presumptive E. coli. Sputum cultures currently demonstrating growth of 3+ Staphylococcus aureus. Vital Signs: Vital Signs Temp Pulse Resp BP Pulse Ox O2 Del Method O2 Flow Rate 98.6 F 62 22 H 112/85 H 98 High Flow 4 05/08/25 07:00 05/08/25 07:00 05/08/25 07:00 05/08/25 07:00 05/08/25 07:00 05/08/25 07:00 05/08/25 07:00 FiO2 30 05/07/25 12:00 Oxygen Flow Rate (L/min) 4 Oxygen Delivery Method High Flow Weight: 244 lb 7.882 oz Body Mass Index (BMI) 33.0 Intake & Output: Intake and Output for Last 24 Hours 05/06/25 05/07/25 05/08/25 23:59 23:59 23:59 Intake Total 5855.95 / 5905.78 982.91 / 982.91 450 / 450 Output Total 3342 / 3357 2069 / 2144 525 / 525 Balance 2513.95 / 2548.78 -1086.09 / -1161.09 -75 / -75 Lab / Micro Data Attestation: I reviewed the patient's lab results. 05/08/25 03:00 05/08/25 03:00 Labs: Laboratory Results - last 24 hr 05/07/25 07:30: Vancomycin Trough 18.8 H 05/07/25 11:20: Sodium 136, Potassium 4.1, Chloride 102, Carbon Dioxide 20.6 L, Anion Gap 14, BUN 33 H, Creatinine 2.46 H, Estim Creat Clear Calc 42.65 L, Est GFR (MDRD) Non-Af 30 L, BUN/Creatinine Ratio 13.2, Glucose 156 H, Calcium 7.9, Phosphorus 5.0 H, Albumin 2.5 L 05/07/25 11:28: POC Glucose 132 H 05/07/25 16:00: Sodium 138, Potassium 4.0, Chloride 104, Carbon Dioxide 21.8, Anion Gap 12, BUN 39 H, Creatinine 2.75 H, Estim Creat Clear Calc 38.15 L, Est GFR (MDRD) Non-Af 26 L, BUN/Creatinine Ratio 14.1, Glucose 131 H, Calcium 7.7, Phosphorus 4.8 H, Albumin 2.5 L 05/07/25 16:57: POC Glucose 119 H 05/08/25 00:03: POC Glucose 106 05/08/25 03:00: WBC 9.1, RBC 3.07 L, Hgb 8.3 L, Hct 24.4 L, MCV 79.5 L, MCH 27.0, MCHC 34.0, RDW Std Deviation 45.3 H, RDW Coeff of Reinaldo 15.6 H, Plt Count 108 L, MPV 10.9, Immature Gran % (Auto) 1.800 H, Neut % (Auto) 85.2 H, Lymph % (Auto) 7.4 L, [place] % (Auto) 5.5, Eos % (Auto) 0.0, Baso % (Auto) 0.1, Absolute Neuts (auto) 7.8 H, Absolute Lymphs (auto) 0.67 L, Nucleated RBC % 0, Sodium 137 05/08/25 03:00: Sodium 137, Potassium 3.9 05/08/25 03:00: Potassium 4.0, Chloride 104 05/08/25 03:00: Chloride 104, Carbon Dioxide 21.7 05/08/25 03:00: Carbon Dioxide 21.3, Anion Gap 11 05/08/25 03:00: Anion Gap 12, BUN 53 H 05/08/25 03:00: BUN 53 H, Creatinine 3.38 H 05/08/25 03:00: Creatinine 3.31 H, Estim Creat Clear Calc 31.04 L 05/08/25 03:00: Estim Creat Clear Calc 31.70 L, Est GFR (MDRD) Non-Af 20 L 05/08/25 03:00: Est GFR (MDRD) Non-Af 21 L, BUN/Creatinine Ratio 15.7 05/08/25 03:00: BUN/Creatinine Ratio 15.9, Glucose 138 H 05/08/25 03:00: Glucose 136 H, Calcium 7.3 L 05/08/25 03:00: Calcium 7.3 L, Phosphorus 5.1 H, Total Bilirubin 0.66, AST 68 H, ALT 31, Alkaline Phosphatase 82, Total Protein 5.4 L, Albumin 2.4 L 05/08/25 03:00: Albumin 2.4 L, Globulin 3.0, Albumin/Globulin Ratio 0.8 L 05/08/25 05:58: POC Glucose 130 H Micro: Microbiology 05/04/25 14:31 Urine, Catheterized Urine Culture - Final ESBL Escherichia coli 05/06/25 08:50 Blood Culture (Wb) - Anticubital Right Blood Culture - Preliminary 05/04/25 14:05 Blood Culture (Wb) - Anticubital Left Blood Culture - Final GNR lactose hydraulic jack adjuster 05/04/25 14:00 Blood Culture (Wb) - Anticubital Right Blood Culture - Final ESBL Escherichia coli 05/04/25 14:51 Sputum, Induced/Lukens Gram Stain - Final 05/04/25 14:51 Sputum, Induced/Lukens Respiratory Culture - Final Staphylococcus aureus 05/04/25 16:33 Urine, Clean Catch Legionella Antigen - Final 05/04/25 16:33 Urine, Clean Catch Streptococcus pneumoniae Antigen (M - Final 05/04/25 19:16 Nasal Secretion MRSA (PCR) - Final 05/04/25 16:29 Mucosa - Nose Respiratory Panel (PCR) - Final 05/04/25 14:06 Mucosa - Nose SARS-CoV-2, Influenza & RSV (PCR) - Final ABG Data ABG results: ABG 05/04/25 05/04/25 05/04/25 13:11 15:46 18:07 Specimen Type ART ART ART Sample Site R Brach R Brach R Brach pH 6.93 L* 6.80 L* 6.89 L* Bicarbonate Actual 1.5 L 4.2 L 6.2 L Total CO2 < 5 5 7 Base Excess < -30 L < -30 L -27 L O2 Saturation 97 89 L 86 L O2 % 3.0 35.0 30.0 ABG pCO2 7.2 L* 26.9 L 32.5 L ABG pO2 148 H 105 H 86 Satish Test Positive Respiration Rate 12 24 O2 Delivery Device Cannula Adult Vent Adult Vent Vent Mode Not entered AC AC Tidal Volume 450.0 450.0 POC PEEP 5 5 Crit Call To/Read Back Yes Yes Yes Blood Gas Notified Whom alberto huggins Blood Gas Notified Time 13:13:02 15:47:52 18:08:41 05/05/25 01:07 Specimen Type ART Sample Site L Radial pH 7.13 L* Bicarbonate Actual 7.0 L Total CO2 8 Base Excess -22 L O2 Saturation 96 O2 % 50.0 ABG pCO2 21.0 L ABG pO2 105 H Satish Test N/A Respiration Rate 24 O2 Delivery Device Adult Vent Vent Mode AC Tidal Volume 600.0 POC PEEP 5 Crit Call To/Read Back Yes Blood Gas Notified Whom [facility] physician Blood Gas Notified Time 01:10:28 Radiography Diagnostic Testing: Radiology Impression Chest X-Ray 05/04/25 13:25 IMPRESSION: Advanced right glenohumeral joint osteoarthritic changes are seen, with associated severe joint narrowing and osseous reactive changes Prior right rib fractures noted. Blunting of the right costophrenic angle is seen, possibly due to chronic pleural thickening or small right pleural effusion. No left pleural effusion is noted. At least mild degenerative changes of the visualized spine are seen. Lungs are hypoinflated. No pneumothorax is noted. No evidence of pulmonary edema. The cardiomediastinal silhouette is within the normal range. Reading Location: [place] [address] Chest X-Ray 05/04/25 14:40 IMPRESSION: Endotracheal tube position unchanged. Nasogastric tube seen with tip projecting of the distal esophagus. Repositioning should be considered. Lungs remain hypoinflated and unchanged. No pleural effusion or pneumothorax is noted. The cardiomediastinal silhouette is stable, without evidence of cardiomegaly. Reading Location: [place] [address] Chest X-Ray 05/04/25 14:43 IMPRESSION: Interval advancement of the nasogastric tube, but still with tip likely in the distal esophagus. The remainder of the examination is unchanged. Reading Location: [place] [address] Chest X-Ray 05/04/25 14:45 IMPRESSION: Interval advancement of the endotracheal tube is seen, now proximally 3 cm above the marine. Nasogastric tube is partially seen, but with proximal port clearly overlying the distal esophagus. The remainder of the examination is unchanged. Reading Location: [facility] Abdomen/Pelvis CT 05/04/25 15:02 IMPRESSION: Bilateral small pleural effusion with adjacent atelectasis. Additionally there are patchy scattered opacities within bilateral lung. Findings are concerning for underlying infectious/inflammatory process. There is widespread colonic diverticulosis. Mild stranding is visualized along multiple diverticula within right ascending colon. Findings could be related to early developing acute diverticulitis. Small nonobstructing right lower renal calculus. Diffuse hepatic steatosis. Reading Location: [facility] Chest X-Ray 05/04/25 19:56 IMPRESSION: As above. Reading Location: [address] Rhythm Strip Rhythm Strip: Sinus Rhythm Rate: 72 Ectopy: None Physical Exam Const alert and no apparent distress General Appearance: cooperative HEENT normocephalic and head/scalp atraumatic Eyes EOMs intact bilaterally and conjunctivae normal Neck supple General: trachea midline and CVC in place Chest inspection of chest normal Resp Auscultation: diminished lung sounds; Negative for rales, rhonchi or wheezes Cardio regular rate and regular rhythm GI normal to inspection, nondistended, normoactive bowel sounds Extremity no clubbing, cyanosis or edema Skin no rashes or lesions noted Neuro CN's II-XII intact bilaterally and no focal motor deficits Charges/Coding Visit Charges Inpatient E&M: 37029 Subs Hosp L3
[2025-05-08] MEDS: 0.9% Saline Lock 10 ML Syringe IV ×5 (08:21→22:10)
[2025-05-08] MEDS: PureFlow B 2K Dialysis Soln 1 BAG 6 BAG PF (08:21)
[2025-05-08] MEDS: 0.9% Normal Saline 1,000 ML IV.SOLN. 1000 ML OPERA.SITE (08:21)
[2025-05-08] MEDS: Pantoprazole Sodium 40 MG in 0.9% Normal Saline (100mL MB+) 100 ML 300 MG IV ×2 (11:33→21:52)
[2025-05-08] MEDS: CHLORHEXIDINE GLUC 2% CLOTH 1 EACH TOWELETTE TOPICAL (11:34)
--- NOTE | 2025-05-08 12:02 | CASEMGMT ---
Social Work SW spoke w/pt in room in regard to completing Power of Gis Coordinator, and who pt may want as his decision maker. SW explained that when pt was on the vent, the SW did get pt's parents' information, and they would have been the decison makers would it have been needed. Pt was not certain who he would want as POA. Pt mentioned his daughter. SW did let pt know that she did not seem comfortable being his decision maker when pt was on the vent. SW asked pt about other family, he does have a brother and sister and may consider them. SW asked pt to think about who he would like to put as HCPOA, and SW will return tomorrow to complete papers w/the pt. Pt states understanding. SW will continue to follow, will follow up w/pt tomorrow. VEENA Schmidt
--- NOTE | 2025-05-08 12:05 | PN.RENAL_ITS ---
Subjective Subjective Patient underwent hemodialysis this morning and tolerated ~2.8L fluid removal. No complaints currently. Objective Data Objective Data Vital Signs: Vital Signs Temp Pulse Resp BP Pulse Ox O2 Del Method O2 Flow Rate 98.8 F 63 17 173/77 H 100 Nasal Cannula 2 05/08/25 11:24 05/08/25 11:24 05/08/25 11:24 05/08/25 11:24 05/08/25 11:24 05/08/25 11:24 05/08/25 11:24 FiO2 30 05/07/25 12:00 Oxygen Flow Rate (L/min) 2 Oxygen Delivery Method Nasal Cannula Weight: 108.1 kg Body Mass Index (BMI) 32.3 Intake & Output: Intake and Output for Last 24 Hours 05/06/25 05/07/25 05/08/25 23:59 23:59 23:59 Intake Total 5855.95 / 5905.78 982.91 / 982.91 890 / 890 Output Total 3342 / 3357 2069 / 2144 3675 / 3675 Balance 2513.95 / 2548.78 -1086.09 / -1161.09 -2785 / -2785 Lab / Micro Data 05/08/25 03:00 05/08/25 03:00 Labs: Laboratory Results - last 24 hr 05/07/25 16:00: Sodium 138, Potassium 4.0, Chloride 104, Carbon Dioxide 21.8, Anion Gap 12, BUN 39 H, Creatinine 2.75 H, Estim Creat Clear Calc 38.15 L, Est GFR (MDRD) Non-Af 26 L, BUN/Creatinine Ratio 14.1, Glucose 131 H, Calcium 7.7, P hosphorus 4.8 H, Albumin 2.5 L 05/07/25 16:57: POC Glucose 119 H 05/08/25 00:03: POC Glucose 106 05/08/25 03:00: WBC 9.1, RBC 3.07 L, Hgb 8.3 L, Hct 24.4 L, MCV 79.5 L, MCH 27.0, MCHC 34.0, RDW Std Deviation 45.3 H, RDW Coeff of Reinaldo 15.6 H, Plt Count 108 L, MPV 10.9, Immature Gran % (Auto) 1.800 H, Neut % (Auto) 85.2 H, Lymph % (Auto) 7.4 L, [place] % (Auto) 5.5, Eos % (Auto) 0.0, Baso % (Auto) 0.1, Absolute Neuts (auto) 7.8 H, Absolute Lymphs (auto) 0.67 L, Nucleated RBC % 0, Sodium 137 05/08/25 03:00: Sodium 137, Potassium 3.9 05/08/25 03:00: Potassium 4.0, Chloride 104 05/08/25 03:00: Chloride 104, Carbon Dioxide 21.7 05/08/25 03:00: Carbon Dioxide 21.3, Anion Gap 11 05/08/25 03:00: Anion Gap 12, BUN 53 H 05/08/25 03:00: BUN 53 H, Creatinine 3.38 H 05/08/25 03:00: Creatinine 3.31 H, Estim Creat Clear Calc 31.04 L 05/08/25 03:00: Estim Creat Clear Calc 31.70 L, Est GFR (MDRD) Non-Af 20 L 05/08/25 03:00: Est GFR (MDRD) Non-Af 21 L, BUN/Creatinine Ratio 15.7 05/08/25 03:00: BUN/Creatinine Ratio 15.9, Glucose 138 H 05/08/25 03:00: Glucose 136 H, Calcium 7.3 L 05/08/25 03:00: Calcium 7.3 L, Phosphorus 5.1 H, Total Bilirubin 0.66, AST 68 H, ALT 31, Alkaline Phosphatase 82, Total Protein 5.4 L, Albumin 2.4 L 05/08/25 03:00: Albumin 2.4 L, Globulin 3.0, Albumin/Globulin Ratio 0.8 L 05/08/25 05:58: POC Glucose 130 H 05/08/25 11:22: POC Glucose 107 H Micro: Microbiology 05/06/25 08:50 Blood Culture (Wb) - Anticubital Right Blood Culture - Preliminary GNR lactose fraternity adviser 05/04/25 14:31 Urine, Catheterized Urine Culture - Final ESBL Escherichia coli 05/04/25 14:05 Blood Culture (Wb) - Anticubital Left Blood Culture - Final GNR lactose fraternity adviser 05/04/25 14:00 Blood Culture (Wb) - Anticubital Right Blood Culture - Final ESBL Escherichia coli 05/04/25 14:51 Sputum, Induced/Lukens Gram Stain - Final 05/04/25 14:51 Sputum, Induced/Lukens Respiratory Culture - Final Staphylococcus aureus 05/04/25 16:33 Urine, Clean Catch Legionella Antigen - Final 05/04/25 16:33 Urine, Clean Catch Streptococcus pneumoniae Antigen (M - Final 05/04/25 19:16 Nasal Secretion MRSA (PCR) - Final 05/04/25 16:29 Mucosa - Nose Respiratory Panel (PCR) - Final 05/04/25 14:06 Mucosa - Nose SARS-CoV-2, Influenza & RSV (PCR) - Final Rhythm Strip Rhythm Strip: Sinus Rhythm Rate: 72 Ectopy: None Physical Exam Narrative alert and oriented no obvious distress s1s2 no murmurs lungs diminished posteriorly abdomen soft no edema rogel + non-tunneled temorary HD catheter Right IJ dressing C/D/I Assessment & Plan Assessment/Plan (1) BAR (acute kidney injury): PLAN: - BAR on possible CKD. SCr 1.76mg/dL 12/06/2024. normal SCr in 2022. Came with a creatinine 5.48 05/04/2025. CT abdomen without any hydronephrosis. Urine analysis showed protein and blood but this is likely a Rogel sample. Possibly BAR due to ATN in the setting of severe acidosis and suspected sepsis. Started on CRRT 05/04/2025 mostly due to acidosis. Currently off CRRT and transitioned to IHD. Underwent iHD today and tolerated 2.8L fluid removal. Continue to monitor for renal recovery. Renal serologies sent and pending Urine output appears to picking up. Bps improved, off IV pressors. - Significantly elevated gap on presentation. Metabolic acidosis is most likely due to shock and renal failure. His beta hydroxybutyrate elevated. Blood glucose values noted. Initially there was some concern for toxic alcohol ingestion but it appears unlikely as per history. Even if he has it, CRRT should clear it. Possible move out ot ICU today. Discussed with Dr. Chavez. Assessment and plan reviewed with Dr. Ferreira. (2) High anion gap metabolic acidosis:
--- NOTE | 2025-05-08 13:57 | PCM.CONS.GEN ---
Assessment & Plan Assessment/Plan (1) Septic shock: PLAN: MSSA pneumonia and GNR bacteremia. Ucx with ESBL ecoli. Cont meropenem. Now out of icu, off vent, off pressor, off CRRT. Will follow, thank you, d/w Dr. Tran yesterday (2) BAR (acute kidney injury): (3) Acute respiratory failure: HPI Consult Data Date of Consult: 05/08/25 HPI Narrative Reason for Consultation: bacteremia HPI Narrative: NOAH DOMINGUEZ, is a 60 M with h/o asthma, DM, presented to ED 05/04 with 2-3 days progressive dyspnea at home. Some cough, minimal sputum. Developed some chills. Took a dose of azithro from PCP without improvement. Admitted to icu on vent, CRRT, vanc, zosyn. Abx changed to meropenem with growth of mssa and ESBL. Now out of icu, feeling better. Full ROS performed and neg except as noted above. [facility] Medical History History of ESBL E. coli infection Asthma Diabetes Home Medications ?Medication ?Instructions ?Recorded ?Last Taken ?Type albuterol sulfate 90 mcg/actuation 2 puff inhalation Q6H PRN 01/08/21 Unknown History aerosol inhaler shortness of breath or wheezing metformin 500 mg tablet 500 mg PO BID diabetes 01/08/21 Unknown History sildenafil 25 mg tablet 25 mg PO DAILY PRN 11/17/22 Unknown History Allergy/AdvReac Type Severity Reaction Status Date / Time citalopram Allergy Mild Other Verified 05/04/25 15:15 Sulfa (Sulfonamide Allergy Unknown unknown Verified 05/04/25 15:15 Antibiotics) Family History Grandfather Diabetes Surgical History History of umbilical hernia repair Social History Smoking Status: Heavy Smoker (>10/day) alcohol intake: current alcohol intake frequency: a few times a week Physical Exam Const alert, oriented x3 and no apparent distress General Appearance: cooperative HEENT normocephalic and head/scalp atraumatic Eyes PERRL and EOMs intact bilaterally Neck supple and No nodes Resp normal air movement and clear to auscultation bilaterally Cardio regular rate and regular rhythm GI soft to palpation, non-tender and non-distended Extremity General Extremity: Negative for edema Skin no rashes or lesions noted Neuro CN's II-XII intact bilaterally Lab / Micro Data Attestation: I reviewed the patient's lab results. 05/08/25 03:00 05/08/25 03:00 Labs: Laboratory Results - last 24 hr 05/07/25 16:00: Sodium 138, Potassium 4.0, Chloride 104, Carbon Dioxide 21.8, Anion Gap 12, BUN 39 H, Creatinine 2.75 H, Estim Creat Clear Calc 38.15 L, Est GFR (MDRD) Non-Af 26 L, BUN/Creatinine Ratio 14.1, Glucose 131 H, Calcium 7.7, Phosphorus 4.8 H, Albumin 2.5 L 05/07/25 16:57: POC Glucose 119 H 05/08/25 00:03: POC Glucose 106 05/08/25 03:00: WBC 9.1, RBC 3.07 L, Hgb 8.3 L, Hct 24.4 L, MCV 79.5 L, MCH 27.0, MCHC 34.0, RDW Std Deviation 45.3 H, RDW Coeff of Reinaldo 15.6 H, Plt Count 108 L, MPV 10.9, Immature Gran % (Auto) 1.800 H, Neut % (Auto) 85.2 H, Lymph % (Auto) 7.4 L, [place] % (Auto) 5.5, Eos % (Auto) 0.0, Baso % (Auto) 0.1, Absolute Neuts (auto) 7.8 H, Absolute Lymphs (auto) 0.67 L, Nucleated RBC % 0, Sodium 137 05/08/25 03:00: Sodium 137, Potassium 3.9 05/08/25 03:00: Potassium 4.0, Chloride 104 05/08/25 03:00: Chloride 104, Carbon Dioxide 21.7 05/08/25 03:00: Carbon Dioxide 21.3, Anion Gap 11 05/08/25 03:00: Anion Gap 12, BUN 53 H 05/08/25 03:00: BUN 53 H, Creatinine 3.38 H 05/08/25 03:00: Creatinine 3.31 H, Estim Creat Clear Calc 31.04 L 05/08/25 03:00: Estim Creat Clear Calc 31.70 L, Est GFR (MDRD) Non-Af 20 L 05/08/25 03:00: Est GFR (MDRD) Non-Af 21 L, BUN/Creatinine Ratio 15.7 05/08/25 03:00: BUN/Creatinine Ratio 15.9, Glucose 138 H 05/08/25 03:00: Glucose 136 H, Calcium 7.3 L 05/08/25 03:00: Calcium 7.3 L, Phosphorus 5.1 H, Total Bilirubin 0.66, AST 68 H, ALT 31, Alkaline Phosphatase 82, Total Protein 5.4 L, Albumin 2.4 L 05/08/25 03:00: Albumin 2.4 L, Globulin 3.0, Albumin/Globulin Ratio 0.8 L 05/08/25 05:58: POC Glucose 130 H 05/08/25 11:22: POC Glucose 107 H Micro: Microbiology 05/06/25 08:50 Blood Culture (Wb) - Anticubital Right Blood Culture - Preliminary GNR lactose exchange operator Rhythm Strip Rhythm Strip: Sinus Rhythm Rate: 72 Ectopy: None
[2025-05-08] MEDS: 0.9% Normal Saline (250mL Bag) 250 ML 15 ML IV (14:46)
--- NOTE | 2025-05-08 19:21 | PCM.PN.HOSP ---
Reason for Visit Chief Complaint: Shortness of breath Subjective Subjective Patient was seen and examined today, he was extubated today and was on nasal cannula oxygen at time of my examination. Patient was alert and did not appear to be in any distress. I did not feel he needed to be seen by speech therapy, according to nursing, patient has been taking oral intake without difficulty. I felt the patient was stable at this time to transfer the patient to PCU for further care. I briefly talked with critical care about his care. Objective Data Objective Data Vital Signs: Vital Signs Temp Pulse Resp BP Pulse Ox O2 Del Method O2 Flow Rate 97.7 F L 74 18 111/54 L 97 Room Air 2 05/08/25 17:45 05/08/25 17:45 05/08/25 17:45 05/08/25 17:45 05/08/25 17:45 05/08/25 17:45 05/08/25 11:24 FiO2 30 05/07/25 12:00 Oxygen Flow Rate (L/min) 2 Oxygen Delivery Method Room Air Weight: 108.1 kg Body Mass Index (BMI) 32.3 Intake & Output: Intake and Output for Last 24 Hours 05/06/25 05/07/25 05/08/25 23:59 23:59 23:59 Intake Total 5855.95 / 5905.78 982.91 / 982.91 990.25 / 990.25 Output Total 3342 / 3357 2069 / 2144 4025 / 4025 Balance 2513.95 / 2548.78 -1086.09 / -1161.09 -3034.75 / -3034.75 Lab / Micro Data 05/09/25 08:45 05/09/25 08:45 Labs: Laboratory Results - last 24 hr 05/08/25 00:03: POC Glucose 106 05/08/25 03:00: WBC 9.1, RBC 3.07 L, Hgb 8.3 L, Hct 24.4 L, MCV 79.5 L, MCH 27.0, MCHC 34.0, RDW Std Deviation 45.3 H, RDW Coeff of Reinaldo 15.6 H, Plt Count 108 L, MPV 10.9, Immature Gran % (Auto) 1.800 H, Neut % (Auto) 85.2 H, Lymph % (Auto) 7.4 L, [place] % (Auto) 5.5, Eos % (Auto) 0.0, Baso % (Auto) 0.1, Absolute Neuts (auto) 7.8 H, Absolute Lymphs (auto) 0.67 L, Nucleated RBC % 0, Sodium 137 05/08/25 03:00: Sodium 137, Potassium 3.9 05/08/25 03:00: Potassium 4.0, Chloride 104 05/08/25 03:00: Chloride 104, Carbon Dioxide 21.7 05/08/25 03:00: Carbon Dioxide 21.3, Anion Gap 11 05/08/25 03:00: Anion Gap 12, BUN 53 H 05/08/25 03:00: BUN 53 H, Creatinine 3.38 H 05/08/25 03:00: Creatinine 3.31 H, Estim Creat Clear Calc 31.04 L 05/08/25 03:00: Estim Creat Clear Calc 31.70 L, Est GFR (MDRD) Non-Af 20 L 05/08/25 03:00: Est GFR (MDRD) Non-Af 21 L, BUN/Creatinine Ratio 15.7 05/08/25 03:00: BUN/Creatinine Ratio 15.9, Glucose 138 H 05/08/25 03:00: Glucose 136 H, Calcium 7.3 L 05/08/25 03:00: Calcium 7.3 L, Phosphorus 5.1 H, Total Bilirubin 0.66, AST 68 H, ALT 31, Alkaline Phosphatase 82, Total Protein 5.4 L, Albumin 2.4 L 05/08/25 03:00: Albumin 2.4 L, Globulin 3.0, Albumin/Globulin Ratio 0.8 L 05/08/25 05:58: POC Glucose 130 H 05/08/25 11:22: POC Glucose 107 H Micro: Microbiology 05/06/25 08:50 Blood Culture (Wb) - Anticubital Right Blood Culture - Preliminary GNR lactose crane engineer 05/04/25 14:31 Urine, Catheterized Urine Culture - Final ESBL Escherichia coli 05/04/25 14:05 Blood Culture (Wb) - Anticubital Left Blood Culture - Final GNR lactose crane engineer 05/04/25 14:00 Blood Culture (Wb) - Anticubital Right Blood Culture - Final ESBL Escherichia coli 05/04/25 14:51 Sputum, Induced/Lukens Gram Stain - Final 05/04/25 14:51 Sputum, Induced/Lukens Respiratory Culture - Final Staphylococcus aureus 05/04/25 16:33 Urine, Clean Catch Legionella Antigen - Final 05/04/25 16:33 Urine, Clean Catch Streptococcus pneumoniae Antigen (M - Final 05/04/25 19:16 Nasal Secretion MRSA (PCR) - Final 05/04/25 16:29 Mucosa - Nose Respiratory Panel (PCR) - Final 05/04/25 14:06 Mucosa - Nose SARS-CoV-2, Influenza & RSV (PCR) - Final Rhythm Strip Rhythm Strip: Sinus Rhythm Rate: 72 Ectopy: None Physical Exam Const alert, oriented x3, no apparent distress and healthy appearing General Appearance: cooperative, well kempt and well developed Orientation / Consciousness: awake, oriented to person, oriented to place and oriented to time HEENT normocephalic, head/scalp atraumatic and moist oral mucous membranes Eyes PERRL, EOMs intact bilaterally and conjunctivae normal Neck supple, no JVD, thyroid normal and no carotid bruits General: trachea midline Resp normal respiratory effort, no retractions, no use of accessory muscles and clear to auscultation bilaterally Auscultation: Negative for rales, rhonchi or wheezes Cardio regular rate, regular rhythm, S1 normal heart sound, S2 normal heart sound, no murmurs, no rub and no gallops GI normal to inspection, nondistended, normoactive bowel sounds, soft to palpation, non-tender and non-distended Extremity no clubbing, cyanosis or edema Skin no rashes or lesions noted General Skin Exam: no breakdown Neuro oriented x3, CN's II-XII intact bilaterally, no focal motor deficits and no sensory deficits noted Sensorium / Orientation: awake and alert Speech: speech normal Psych affect normal Assessment & Plan Assessment/Plan (1) Septic shock: PLAN: Plan 1. Septic shock-patient is no longer on any pressors, he appears stable for transfer to PCU for further care, he remains on antibiotics per infectious diseases. #2 acute kidney injury secondary to ATN from septic shock-patient is being seen by nephrology and is undergoing dialysis #3 ESBL E. coli urinary tract infection with bacteremia-patient remains on antibiotics per infectious diseases #4 acute hypoxic respiratory failure-again patient was extubated this morning and pulse ox will be monitored #5 type 2 diabetes-blood sugars will be monitored, sliding scale insulin will be administered as needed Total clinical time spent by myself addressing the patient's medical issues, reviewing all of his data, and collaborating with patient's care team: 35 minutes Charges/Coding Visit Charges Inpatient E&M: 32284 Subs Hosp L2
[2025-05-09 03:23] VITALS: BMI 33.2
[2025-05-09 03:25] VITALS: BP 136/55; PULSE 60; RESP 16; TEMP 36.9; O2SAT 94
[2025-05-09] MEDS: Heparin Injection (Vial) 5,000 UNIT/ML VIAL 5000 UNIT SC ×3 (05:44→21:06)
[2025-05-09 09:06] VITALS: BP 106/54; PULSE 56; RESP 16; TEMP 36.5; O2SAT 96
[2025-05-09] MEDS: Pantoprazole Sodium 40 MG in 0.9% Normal Saline (100mL MB+) 100 ML 300 MG IV ×2 (09:10→21:06)
[2025-05-09] MEDS: 0.9% Saline Lock 10 ML Syringe IV (09:10)
[2025-05-09 09:27] LABS: Hematocrit 28.4 % (40-54); Hemoglobin 9.5 g/dL (13.0-16.5); Immature Granulocytes Count 0.370 X10^3/uL (0.0-0.0); Mean Corp Hgb Conc 33.5 g/dL (32-36); Mean Corpuscular Volume 81.8 fL (80-94); Mean Platelet Vol. 11.1 fl (6.2-12.0); NRBC Flagged by Analyzer 0 % (0-5); Platelet Count 157 K/mm3 (150-450); RBC Distribution Width CV 14.9 % (11.6-14.6); RBC Distribution Width SD 44.3 fl (35.1-43.9); Red Blood Count 3.47 M/mm3 (4.6-6.2); White Blood Count 11.2 K/mm3 (4.4-11.0)
--- NOTE | 2025-05-09 10:37 | PCM.PN.REN ---
Subjective Subjective Patient sitting up in bed. Girlfriend at bedside. No overnight events. States feeling better today. Denies any shortness of breath. Objective Data Objective Data Vital Signs: Vital Signs Temp Pulse Resp BP Pulse Ox O2 Del Method O2 Flow Rate 97.7 F L 56 L 16 106/54 L 96 Room Air 2 05/09/25 09:06 05/09/25 09:06 05/09/25 09:06 05/09/25 09:06 05/09/25 09:06 05/09/25 09:45 05/08/25 11:24 FiO2 30 05/07/25 12:00 Oxygen Flow Rate (L/min) 2 Oxygen Delivery Method Room Air Weight: 111.2 kg Body Mass Index (BMI) 33.2 Intake & Output: Intake and Output for Last 24 Hours 05/07/25 05/08/25 05/09/25 23:59 23:59 23:59 Intake Total 982.91 / 982.91 1090.25 / 1090.25 100 / 100 Output Total 2069 / 2144 4025 / 4525 1150 / 1150 Balance -1086.09 / -1161.09 -2934.75 / -3434.75 -1050 / -1050 Lab / Micro Data 05/09/25 08:45 05/08/25 03:00 Labs: Laboratory Results - last 24 hr 05/08/25 11:22: POC Glucose 107 H 05/08/25 16:51: POC Glucose 93 05/09/25 00:53: POC Glucose 103 05/09/25 05:43: POC Glucose 111 H 05/09/25 08:45: WBC 11.2 H, RBC 3.47 L, Hgb 9.5 L, Hct 28.4 L, MCV 81.8, MCH 27.4, MCHC 33.5, RDW Std Deviation 44.3 H, RDW Coeff of Reinaldo 14.9 H, Plt Count 157, MPV 11.1, Immature Gran % (Auto) 3.300 H, Neut % (Auto) 82.5 H, Lymph % (Auto) 8.5 L, [place] % (Auto) 5.4, Eos % (Auto) 0.0, Baso % (Auto) 0.3, Absolute Neuts (auto) 9.2 H, Absolute Lymphs (auto) 0.95, Nucleated RBC % 0 Micro: Microbiology 05/06/25 08:50 Blood Culture (Wb) - Anticubital Right Blood Culture - Preliminary GNR lactose printer small print shop 05/04/25 14:31 Urine, Catheterized Urine Culture - Final ESBL Escherichia coli 05/04/25 14:05 Blood Culture (Wb) - Anticubital Left Blood Culture - Final GNR lactose printer small print shop 05/04/25 14:00 Blood Culture (Wb) - Anticubital Right Blood Culture - Final ESBL Escherichia coli 05/04/25 14:51 Sputum, Induced/Lukens Gram Stain - Final 05/04/25 14:51 Sputum, Induced/Lukens Respiratory Culture - Final Staphylococcus aureus 05/04/25 16:33 Urine, Clean Catch Legionella Antigen - Final 05/04/25 16:33 Urine, Clean Catch Streptococcus pneumoniae Antigen (M - Final 05/04/25 19:16 Nasal Secretion MRSA (PCR) - Final 05/04/25 16:29 Mucosa - Nose Respiratory Panel (PCR) - Final 05/04/25 14:06 Mucosa - Nose SARS-CoV-2, Influenza & RSV (PCR) - Final Rhythm Strip Rhythm Strip: Sinus Rhythm Rate: 72 Ectopy: None Physical Exam Narrative alert and oriented no obvious distress s1s2 no murmurs lungs clear abdomen soft no edema rogel + non-tunneled temporary HD catheter Right IJ dressing C/D/I Assessment & Plan Assessment/Plan (1) BAR (acute kidney injury): PLAN: - BAR on possible CKD. SCr 1.76mg/dL 12/06/2024. normal SCr in 2022. Came with a creatinine 5.48 05/04/2025. CT abdomen without any hydronephrosis. Urine analysis showed protein and blood but this is likely a Rogel sample. Possibly BAR due to ATN in the setting of severe acidosis, suspected sepsis, hypotension requiring IV pressors Started on CRRT 05/04/2025 mostly due to acidosis transitioned to iHD 05/08. Underwent iHD 05/08 and tolerated 2.8L fluid removal. Continue to monitor for renal recovery. Renal serologies sent and pending Urine output picking up. Bps improved, off IV pressors. Labs pending today likely no acute indication for THREAT ANALYST today (volume status appears near euvolemic, breathing improved and currently on room air) but will follow labs once resulted, labs ordered for morning. If patient continues to need dialysis then he will need TDC placed and outpatient HD arrangements. We will have better idea if needing outpatient dialysis in next coming days or so, fortunately urine output is picking up, so far 1 L urine output today. - Significantly elevated gap on presentation. Metabolic acidosis is most likely due to shock and renal failure. His beta hydroxybutyrate elevated. Blood glucose values noted. Initially there was some concern for toxic alcohol ingestion but it appears unlikely as per history. Even if he had it, CRRT should clear it. -MSSA pneumonia, gram-negative angel bacteremia, urine culture ESBL E. coli. ID following for antibiotics, meropenem. Assessment and plan reviewed with Dr. Ferreira. (2) High anion gap metabolic acidosis:
[2025-05-09 11:01] LABS: Anion Gap 14 (5-15); BUN 58 mg/dL (4-19); BUN/Creat Ratio 18.9 RATIO (10-20); Calcium,Total 7.6 mg/dL (7.6-11.0); Carbon Dioxide 20.4 mmol/L (21.0-32.0); Chloride 103 mmol/L (98-108); Estimated Creatinine Clearance 33.55 ml/min (50-250); Glucose 118 mg/dL (70-99); Potassium 3.3 mmol/L (3.3-5.1)
[2025-05-09 14:01] VITALS: BP 91/45; PULSE 56; RESP 16; TEMP 36.7; O2SAT 94
[2025-05-09] MEDS: Meropenem 1 GM in 0.9% Normal Saline (100mL MB+) 100 ML IV (14:09)
[2025-05-09 18:08] LABS: Cytoplasmic Ab (C-ANCA) <1:20 titer (Neg:<1:20); PROEL- A/G Ratio 0.7 (0.7-1.7); PROEL- Albumin 2.0 g/dL (2.9-4.4); PROEL- Alpha-1 Globulin 0.4 g/dL (0.0-0.4); PROEL- Alpha-2 Globulin 0.9 g/dL (0.4-1.0); PROEL- Beta Globulin 0.5 g/dL (0.7-1.3); PROEL- Gamma Globulin 1.0 g/dL (0.4-1.8); PROEL- Globulin, Total 2.8 g/dL (2.2-3.9); PROEL- TOTAL PROTEIN 4.8 g/dL (6.0-8.5); PROEL-M-Spike Comment: g/dL (Not Observed); Perinuclear Ab (P-ANCA) <1:20 titer (Neg:<1:20)
[2025-05-09] MEDS: CHLORHEXIDINE GLUC 2% CLOTH 1 EACH TOWELETTE TOPICAL (18:40)
--- NOTE | 2025-05-09 18:58 | CASEMGMT ---
Social Work Met with patient to follow-up and complete advance directives. Patient significant other Ary in room. Patient agreeable for social work to discuss with visitor present. Patient voiced he would like to have his brother as the power of civil attorney for healthcare, if his brother is willing to do so. Patient knows what [address] his brother lives on but not the actual address. Declined this property underwriter's offer to call the brother to get specific address, stating the brother will be in for a visit and patient can talk to his brother at that time. Patient agreeable for social work to come back on 05/10/2025 as time allows for completion. Patient asked that his brother Adal be moved into the person to notify physician on the demographics page of the patient's EMR. Demographics updated. Plan: Social work to follow up regarding advance directive completion, as time allows on 05/10/2025. -VEENA Garcia, CHASE *This note was generated with [employer] dictation software. It may contain incorrect words, spelling, and punctuation that were not noted in review of the chart prior to signing*
--- NOTE | 2025-05-09 19:38 | PN.HOSP_ITS ---
Reason for Visit Chief Complaint: Shortness of breath Subjective Subjective Patient was seen and examined today, his is in the room at the time of my examination, patient states he did very well in physical therapy today, I received a text from nephrology stating they were going to recheck the patient's labs tomorrow to see if he needed dialysis. It appears the patient may be able to go home when his renal function is stabilized rather than go to a nursing home facility. Patient has a temporary dialysis catheter in place presently. Objective Data Objective Data Vital Signs: Vital Signs Temp Pulse Resp BP Pulse Ox O2 Del Method O2 Flow Rate 98.1 F 56 L 16 91/45 L 94 Room Air 2 05/09/25 14:01 05/09/25 14:01 05/09/25 14:01 05/09/25 14:01 05/09/25 14:01 05/09/25 14:01 05/09/25 06:52 FiO2 30 05/07/25 12:00 Oxygen Flow Rate (L/min) 2 Oxygen Delivery Method Room Air Weight: 111.2 kg Body Mass Index (BMI) 33.2 Intake & Output: Intake and Output for Last 24 Hours 05/07/25 05/08/25 05/09/25 23:59 23:59 23:59 Intake Total 982.91 / 982.91 1090.25 / 1090.25 1449.75 / 1449.75 Output Total 2069 / 2144 4025 / 4525 2049 / 2049 Balance -1086.09 / -1161.09 -2934.75 / -3434.75 -600.25 / -600.25 Lab / Micro Data 05/09/25 08:45 05/10/25 05:18 Labs: Laboratory Results - last 24 hr 05/06/25 06:20: Total Protein (PEP) 4.8 L, Albumin (PEP) 2.0 L, Globulin (PEP) 2.8, Albumin/Globulin (PEP) 0.7, Yejfi-6-Eszmkfmpm 0.4, Jzkmx-6-Vbdjnrthl 0.9, B eta Globulins 0.5 L, Gamma Globulins 1.0, M-Rosendo Comment:, PEP Note Comment, PEP Interpretation Comment, c-ANCA Antibody <1:20, Atypical p-ANCA <1:20, p-ANCA Antibody <1:20, Glomerular Base Memb Ab < 0.2, Complement C3 86, Complement C4 25 05/08/25 16:51: POC Glucose 93 05/09/25 00:53: POC Glucose 103 05/09/25 05:43: POC Glucose 111 H 05/09/25 08:45: WBC 11.2 H, RBC 3.47 L, Hgb 9.5 L, Hct 28.4 L, MCV 81.8, MCH 27.4, MCHC 33.5, RDW Std Deviation 44.3 H, RDW Coeff of Reinaldo 14.9 H, Plt Count 157, MPV 11.1, Immature Gran % (Auto) 3.300 H, Neut % (Auto) 82.5 H, Lymph % (Auto) 8.5 L, [place] % (Auto) 5.4, Eos % (Auto) 0.0, Baso % (Auto) 0.3, Absolute Neuts (auto) 9.2 H, Absolute Lymphs (auto) 0.95, Nucleated RBC % 0, Sodium 137, Potassium 3.3, Chloride 103, Carbon Dioxide 20.4 L, Anion Gap 14, BUN 58 H, C reatinine 3.09 H, Estim Creat Clear Calc 33.55 L, Est GFR (MDRD) Non-Af 23 L, BUN/Creatinine Ratio 18.9, Glucose 118 H, Calcium 7.6 05/09/25 10:56: POC Glucose 116 H 05/09/25 16:18: POC Glucose 123 H Micro: Microbiology 05/06/25 08:50 Blood Culture (Wb) - Anticubital Right Blood Culture - Preliminary GNR lactose driver education instructor 05/04/25 14:31 Urine, Catheterized Urine Culture - Final ESBL Escherichia coli 05/04/25 14:05 Blood Culture (Wb) - Anticubital Left Blood Culture - Final GNR lactose driver education instructor 05/04/25 14:00 Blood Culture (Wb) - Anticubital Right Blood Culture - Final ESBL Escherichia coli 05/04/25 14:51 Sputum, Induced/Lukens Gram Stain - Final 05/04/25 14:51 Sputum, Induced/Lukens Respiratory Culture - Final Staphylococcus aureus 05/04/25 16:33 Urine, Clean Catch Legionella Antigen - Final 05/04/25 16:33 Urine, Clean Catch Streptococcus pneumoniae Antigen (M - Final 05/04/25 19:16 Nasal Secretion MRSA (PCR) - Final 05/04/25 16:29 Mucosa - Nose Respiratory Panel (PCR) - Final 05/04/25 14:06 Mucosa - Nose SARS-CoV-2, Influenza & RSV (PCR) - Final Rhythm Strip Rhythm Strip: Sinus Rhythm Rate: 72 Ectopy: None Physical Exam Narrative alert, oriented x3, no apparent distress and healthy appearing General Appearance: cooperative, well kempt and well developed Orientation / Consciousness: awake, oriented to person, oriented to place and oriented to time HEENT normocephalic, head/scalp atraumatic and moist oral mucous membranes Eyes PERRL, EOMs intact bilaterally and conjunctivae normal Neck supple, no JVD, thyroid normal and no carotid bruits General: trachea midline Resp normal respiratory effort, no retractions, no use of accessory muscles and clear to auscultation bilaterally Auscultation: Negative for rales, rhonchi or wheezes Cardio regular rate, regular rhythm, S1 normal heart sound, S2 normal heart sound, no murmurs, no rub and no gallops GI normal to inspection, nondistended, normoactive bowel sounds, soft to palpation, non-tender and non-distended Extremity no clubbing, cyanosis or edema Skin no rashes or lesions noted General Skin Exam: no breakdown Neuro oriented x3, CN's II-XII intact bilaterally, no focal motor deficits and no sensory deficits noted Sensorium / Orientation: awake and alert Speech: speech normal Psych affect normal Assessment & Plan Assessment/Plan (1) Septic shock: (2) BAR (acute kidney injury): (3) Acute respiratory failure: PLAN: Plan 1. Septic shock-patient remains on meropenem per ID #2 acute kidney injury secondary to ATN from septic shock-patient is being seen by nephrology and has been undergoing dialysis #3 ESBL E. coli urinary tract infection with bacteremia-patient remains on antibiotics per infectious diseases #4 acute hypoxic respiratory failure-again patient was extubated this morning and pulse ox will be monitored #5 type 2 diabetes-blood sugars will be monitored, sliding scale insulin will be administered as needed Total clinical time spent by myself addressing the patient's medical issues, reviewing all of his data, and collaborating with patient's care team: 35 minutes Charges/Coding Visit Charges Inpatient E&M: 00359 Subs Hosp L2
[2025-05-09 21:00] VITALS: BP 115/55; PULSE 60; RESP 16; TEMP 36.6; O2SAT 94
[2025-05-10 02:37] VITALS: BMI 33.4
[2025-05-10 03:25] VITALS: BP 128/64; PULSE 58; RESP 16; TEMP 36.8; O2SAT 98
[2025-05-10] MEDS: Heparin Injection (Vial) 5,000 UNIT/ML VIAL 5000 UNIT SC (06:21)
[2025-05-10 06:59] LABS: Albumin, Serum 2.7 g/dL (3.5-5.0); Anion Gap 12 (5-15); BUN 63 mg/dL (4-19); BUN/Creat Ratio 21.3 RATIO (10-20); Calcium,Total 7.7 mg/dL (7.6-11.0); Carbon Dioxide 21.2 mmol/L (21.0-32.0); Chloride 104 mmol/L (98-108); Estimated Creatinine Clearance 35.15 ml/min (50-250); Glucose 119 mg/dL (70-99); Potassium 3.5 mmol/L (3.3-5.1)
[2025-05-10 08:36] VITALS: BP 123/47; PULSE 52; RESP 16; TEMP 36.9; O2SAT 96
[2025-05-10] MEDS: Pantoprazole Sodium 40 MG in 0.9% Normal Saline (100mL MB+) 100 ML 300 MG IV (09:53)
--- NOTE | 2025-05-10 10:07 | PN.RENAL_ITS ---
Subjective Subjective Patient sitting up in bed. States he ate breakfast without any nausea. States feeling better. No overnight events. Objective Data Objective Data Vital Signs: Vital Signs Temp Pulse Resp BP Pulse Ox O2 Del Method O2 Flow Rate 98.5 F 52 L 16 123/47 H 96 Room Air 2 05/10/25 08:36 05/10/25 08:36 05/10/25 08:36 05/10/25 08:36 05/10/25 08:36 05/10/25 08:36 05/09/25 06:52 FiO2 30 05/07/25 12:00 Oxygen Flow Rate (L/min) 2 Oxygen Delivery Method Room Air Weight: 112 kg Body Mass Index (BMI) 33.4 Intake & Output: Intake and Output for Last 24 Hours 05/08/25 05/09/25 05/10/25 23:59 23:59 23:59 Intake Total 1090.25 / 1090.25 1549.75 / 1549.75 Output Total 4025 / 4525 2050 / 2450 1475 / 1475 Balance -2934.75 / -3434.75 -500.25 / -900.25 -1475 / -1475 Lab / Micro Data 05/09/25 08:45 05/10/25 05:18 Labs: Laboratory Results - last 24 hr 05/06/25 06:20: Total Protein (PEP) 4.8 L, Albumin (PEP) 2.0 L, Globulin (PEP) 2.8, Albumin/Globulin (PEP) 0.7, Nkcka-9-Abmjhylqm 0.4, Sdrqt-2-Recfqxznx 0.9, B eta Globulins 0.5 L, Gamma Globulins 1.0, M-Rosendo Comment:, PEP Note Comment, PEP Interpretation Comment, c-ANCA Antibody <1:20, Atypical p-ANCA <1:20, p-ANCA Antibody <1:20, Glomerular Base Memb Ab < 0.2, Complement C3 86, Complement C4 25 05/09/25 08:45: Sodium 137, Potassium 3.3, Chloride 103, Carbon Dioxide 20.4 L, Anion Gap 14, BUN 58 H, Creatinine 3.09 H, Estim Creat Clear Calc 33.55 L, Est GFR (MDRD) Non-Af 23 L, BUN/Creatinine Ratio 18.9, Glucose 118 H, Calcium 7.6 05/09/25 10:56: POC Glucose 116 H 05/09/25 16:18: POC Glucose 123 H 05/09/25 21:05: POC Glucose 120 H 05/10/25 05:18: Sodium 137, Potassium 3.5, Chloride 104, Carbon Dioxide 21.2, Anion Gap 12, BUN 63 H, Creatinine 2.96 H, Estim Creat Clear Calc 35.15 L, Est GFR (MDRD) Non-Af 24 L, BUN/Creatinine Ratio 21.3 H, Glucose 119 H, Calcium 7.7, Phosphorus 5.2 H, Albumin 2.7 L 05/10/25 06:20: POC Glucose 108 H Micro: Microbiology 05/06/25 08:50 Blood Culture (Wb) - Anticubital Right Blood Culture - Preliminary GNR lactose can washer 05/04/25 14:31 Urine, Catheterized Urine Culture - Final ESBL Escherichia coli 05/04/25 14:05 Blood Culture (Wb) - Anticubital Left Blood Culture - Final GNR lactose can washer 05/04/25 14:00 Blood Culture (Wb) - Anticubital Right Blood Culture - Final ESBL Escherichia coli 05/04/25 14:51 Sputum, Induced/Lukens Gram Stain - Final 05/04/25 14:51 Sputum, Induced/Lukens Respiratory Culture - Final Staphylococcus aureus 05/04/25 16:33 Urine, Clean Catch Legionella Antigen - Final 05/04/25 16:33 Urine, Clean Catch Streptococcus pneumoniae Antigen (M - Final 05/04/25 19:16 Nasal Secretion MRSA (PCR) - Final 05/04/25 16:29 Mucosa - Nose Respiratory Panel (PCR) - Final 05/04/25 14:06 Mucosa - Nose SARS-CoV-2, Influenza & RSV (PCR) - Final Rhythm Strip Rhythm Strip: Sinus Rhythm Rate: 72 Ectopy: None Physical Exam Narrative alert and oriented no obvious distress s1s2 no murmurs lungs clear abdomen soft no edema rogel + non-tunneled temporary HD catheter Right IJ dressing C/D/I Assessment & Plan Assessment/Plan (1) BAR (acute kidney injury): PLAN: - BAR on possible CKD. SCr 1.76mg/dL 12/06/2024. normal SCr in 2022. Came with a creatinine 5.48 05/04/2025. CT abdomen without any hydronephrosis. Urine analysis showed protein and blood but this is likely a Rogel sample. Possibly BAR due to ATN in the setting of severe acidosis, suspected sepsis, hypotension requiring IV pressors Started on CRRT 05/04/2025 mostly due to acidosis transitioned to iHD 05/08. Underwent iHD 05/08 and tolerated 2.8L fluid removal. Continue to monitor for renal recovery. Renal serologies sent and pending Urine output picking up. Bps improved, off IV pressors. 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 If patient continues to need dialysis then he will need TDC placed and outpatient HD arrangements. We will have better idea if needing outpatient dialysis in next coming days or so, fortunately urine output is picking up, so far 1 L urine output today. - Significantly elevated gap on presentation. Metabolic acidosis is most likely due to shock and renal failure. His beta hydroxybutyrate elevated. Blood glucose values noted. Initially there was some concern for toxic alcohol ingestion but it appears unlikely as per history. Even if he had it, CRRT should clear it. -MSSA pneumonia, gram-negative angel bacteremia, urine culture ESBL E. coli. ID following for antibiotics, meropenem. Assessment and plan reviewed with Dr. Ferreira. 05/10/2025: Overall renal function has improved. Complements, p-ANCA, c-ANCA, GB membrane all within normal limits. Today creatinine 2.96, bicarb 21, potassium 3.5. Urine output so far today almost 1.5 L. No acute indication for renal placement therapy. Discharge planning in progress. Non-tunneled hemodialysis catheter can be removed on day of hospital discharge. Nephrology plan reviewed with patient, questions answered. Will arrange for hospital follow-up in [place] office. Assessment and plan reviewed with Dr. Ferreira. (2) High anion gap metabolic acidosis:
--- NOTE | 2025-05-10 10:44 | CASEMGMT ---
Social Work SW met with pt and assisted pt in completing living will and Health Care POA naming his brother Adal Valdez as decision maker. Copy placed on pt chart and original given to pt. Demographics updated. S ISMA [place]
[2025-05-10] MEDS: Ertapenem Sod 0.5 GM in 0.9% Normal Saline (50mL Bag) 50 ML IV (13:03)
--- NOTE | 2025-05-10 13:42 | PN.ID_ITS ---
Physical Exam Narrative Feeling better, no fever, no abd pain, no n/v/d. Const alert and no apparent distress General Appearance: cooperative Resp normal air movement and clear to auscultation bilaterally Cardio regular rate and regular rhythm GI soft to palpation, non-tender and non-distended Skin no rashes or lesions noted ID ID: Route of nutrition/ use of supplements: [] Nutritional Intake: [] IV Site: [] Rasmussen Catheter: [] Assessment & Plan Assessment/Plan (1) Septic shock: PLAN: MSSA pneumonia and ESBL ecoli bacteremia. Ucx with ESBL ecoli. On enio openem. Now out of icu, off vent, off pressor, off CRRT. Will change to ertapenem, order 5 days IM ertapenem at discharge to complete course. Will follow prn, d/w Dr. Chavez (2) BAR (acute kidney injury): (3) Acute respiratory failure:
--- NOTE | 2025-05-10 14:02 | CASEMGMT ---
Addendum entered by Brenda Mora 05/10/25 16:14: Another TC to [facility]. Infusion center answers and states that they can see the pt tomorrow at 1400. Pt updated and denies further questions, concerns, or DC needs. Addendum entered by Brenda Mora 05/10/25 15:48: The hospitalist calls this RN CM and states that the pt will DC today. TC to [facility]fusion [facility] to schedule the pt. No answer. VM left with request to return call. TC to OP Infusion Automation Controls Specialist. No answer, VM left with request to return call. Original Note: ID provides this RN CM with an Rx for ertapenem IM 500mg daily x5 days. Per rounds, hospitalist anticipates DC today vs tomorrow. Pt will also need the temp HD catheter removed. Nephrology reports the pt does not require dialysis moving forward and suggest OP f/u. RN CM to the pt's room at this time. Pt's RN at the bedside about to take the pt on a walk. Pt reports that he lives alone but that he has support through his SO. Pt states that he is indep and denies DME use. Pt states that his PCP is Dr Rothman and that he was not previously seeing any specialists. Pt states that he plans to follow up with nephro as an OP. Pt states that he feels safe going home once medically ready and denies the need for HH or OP Tx. Pt states that the ID doctor has already reviewed the IM injection with the pt. Pt states that he prefers to go to the OP Infusion Center for this. Pt denies transportation issues. TC to the OP infusion center who states that they can accept the pt and to notify when the pt will be discharging for scheduling purposes. Infusion center states that the pt will need to get the IM Injection on the floor during the weekend. Pt is aware. CM to follow. IM ATB Rx faxed to the infusion center at [phone]. Rx placed in pt's chart. Pt may qualify for home oxygen use. A verbal list of local in-network DME companies were provided to the pt at this time. Pt prefers [employer]Pt denies further questions or concerns at this time. CM to follow.
--- NOTE | 2025-05-10 15:07 | NURSING ---
Dr. Chavez ordered for temporary dialysis cath to be removed prior to d/c. Supplies gathered, and procedure discussed with pt. Questions answered. Line pulled per hospital policy. Pt tolerated well. Hemostasis to site reached after manual pressure. Dry sterile dressing applied. No incident noted during procedure. Pt tolerated well.
--- NOTE | 2025-05-10 15:44 | DCINST_ITS ---
Discharge Instructions DC O2, CPAP, BIPAP needs Home O2 Discharge instructions: No Dressing / Incision Discharge Activity: Return to Normal Activity Weight Bearing Status: Full weight bearing Follow Up Care Test Results: Test results from this visit will be discussed in further detail at your follow- up appointment, if applicable. Discharge Plan Admission Admit Date/Time: 05/04/25 15:01 Primary Reason for Your Visit: Septic shock, renal failure Attending Provider: Tu Chavez Primary Care Provider: Monroe Rothman Consulting Providers: Jani Tello; Delano Tran; Juan Macdonald; Tawny Ferreira Instructions Additional Instructions / Restrictions: Follow a no added sugar diet Discharge Orders/Prescriptions Prescriptions: New ertapenem 1 gram recon soln 0.5 g IM DAILY 5 Days Qty: 5 0RF Rx Instructions: Dx: ESBL ecoli bacteremia. Can reconstitute with lidocaine. 500mg IM daily x5 days. Continued albuterol sulfate 90 mcg/actuation HFA aerosol inhaler 2 puff inhalation Q6H PRN (Reason: shortness of breath or wheezing) sildenafil 25 mg tablet 25 mg PO DAILY PRN Rx Instructions: administer 30 minutes to 4 hours before activity Discontinued metformin 500 mg tablet 500 mg PO BID Referrals / Follow Up: Monroe Rothman MD [Primary Care Provider, Family Practice] - Within 2 Weeks Tawny Ferreira MD [Med Staff - Consulting, Nephrology] - In 1 Week Referral Note: Call his office to confirm an appointment for next week, tell them you were in the hospital and underwent dialysis Disposition Disposition (needs filled in before D/C Order can be placed): Home, Self Care
--- NOTE | 2025-05-10 15:52 | PCM.DC.SUM ---
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 Edwards spoke with Dr. Carolina Consult: Nephrology Routine Consulting Provider: Tawny Ferreira Reason for Consult: acute renal failure w/ severe metabolic acidosis EMERGENT Consult: No Notified: Yes Date Notified: 05/04/25 Time Notified: 15:05 Method of Notification: Verbal Comments:: Dr. Edwards spoke with Dr. Ferreira 05/06/25 07:32 Consult: Infectious Disease Routine Consulting Provider: Juan Macdonald Reason for Consult: ESBL Ecoli in aerobic and anaerobic bottle, MSSA in sputum EMERGENT Consult: No Notified: Yes Date Notified: 05/07/25 Time Notified: 09:04 Method of Notification: Verbal Reason For Visit: ACUTE RESPIRATORY FAILURE W/ SEVERE METABOLIC ACID Diagnosis Discharge Diagnosis (1) Septic shock: Status: Acute Code(s): A41.9 - Sepsis, unspecified organism; R65.21 - Severe sepsis with septic shock (2) BAR (acute kidney injury): Status: Acute Code(s): N17.9 - Acute kidney failure, unspecified (3) Acute respiratory failure: Status: Acute Code(s): J96.00 - Acute respiratory failure, unspecified whether with hypoxia or hypercapnia Plan 1. Septic shock-patient is no longer on any pressors, he appears stable for transfer to PCU for further care, he remains on antibiotics per infectious diseases. #2 acute kidney injury secondary to ATN from septic shock-patient is being seen by nephrology and is undergoing dialysis #3 ESBL E. coli urinary tract infection with bacteremia-patient remains on antibiotics per infectious diseases #4 acute hypoxic respiratory failure-again patient was extubated this morning and pulse ox will be monitored #5 type 2 diabetes-blood sugars will be monitored, sliding scale insulin will be administered as needed Total clinical time spent by myself addressing the patient's medical issues, reviewing all of his data, and collaborating with patient's care team: 35 minutes Medications at Discharge Home Medications albuterol sulfate 90 mcg/actuation aerosol inhaler 2 puff inhalation Q6H PRN shortness of breath or wheezing 01/08/21 sildenafil 25 mg tablet 25 mg PO DAILY PRN prn 11/17/22 ertapenem 1 gram solution for injection 0.5 g IM DAILY 5 days #5 ea 05/10/25 Hospital Course Operations None Procedures None, Dialysis, Intubation and - (Insertion of temporary dialysis catheter) Summary of Care Provided Minutes Spent on Discharge: 32 Hospital Course: This 60-year-old white male was seen in the emergency room at [facility] with a chief complaint of worsening shortness of breath. On arrival to the emergency room, he was breathing 35-40 times per minute and his blood pressure was elevated to 210 systolic. On 4 to 6 L of nasal cannula, oxygen saturation was in the high 90s. Labs obtained were abnormal for sodium of 131, bicarb was 2.9, patient's creatinine was 5.48 and BUN was 97. White blood cell count was elevated at 36.1. Chest x-ray showed no evidence of pneumonia or congestive heart failure. ABG showed acidosis with a pH of 6.93, pO2 was 148. Due to his work of breathing, patient was trialed on BiPAP and he did not do well with this so a decision was made to intubate the patient. Patient was admitted to the ICU and IV antibiotics were continued for septic shock, he was seen in consultation by critical care medicine, due to a high anion gap acidosis, patient was ultimately seen by nephrology and a temporary dialysis catheter was inserted and patient underwent dialysis. Urine culture ultimately grew out ESBL E. coli and he was seen in consultation by infectious diseases. Patient was ultimately extubated and transferred to PCU for further care, he was seen by PT and OT but did not require transfer to a half-way facility at the time of discharge from the hospital. On 05/10/2025, patient was seen and examined: On examination he appeared in good health and spirits. Vital signs as documented. Skin warm and dry and without overt rashes. Neck without JVD, neck was supple, trachea midline, thyroid was normal. Lungs clear bilaterally, normal air movement was noted. Heart exam notable for regular rhythm, normal sounds and absence of murmurs, rubs or gallops. Abdomen unremarkable and without evidence of organomegaly, masses, or abdominal aortic enlargement. Bowel sounds are present, abdomen is not distended. Extremities nonedematous, no cyanosis was noted, no clubbing was noted. Neuro: Cranial nerves II through XII are grossly intact, no focal motor deficits were noted, sensation to light touch and pinprick intact, motor exam 5/5 throughout. Psych: Patient is alert and oriented x3, he does not appear anxious or depressed, he does not appear agitated. Patient was discharged home in stable condition on 05/10/2025 Weight / BMI Weight Weight: 112 kg Body Mass Index (BMI) 33.4 ABG / Lab / Microbiology Data 05/09/25 08:45 05/10/25 05:18 Laboratory: Laboratory Results - last 24 hr 05/06/25 06:20: Total Protein (PEP) 4.8 L, Albumin (PEP) 2.0 L, Globulin (PEP) 2.8, Albumin/Globulin (PEP) 0.7, Ouslv-6-Jnhranbxc 0.4, Xxhgj-5-Wrzvzglqz 0.9, Beta Globulins 0.5 L, Gamma Globulins 1.0, M-Rosendo Comment:, PEP Note Comment, PEP Interpretation Comment, c-ANCA Antibody <1:20, Atypical p-ANCA <1:20, p-ANCA Antibody <1:20, Glomerular Base Memb Ab < 0.2, Complement C3 86, Complement C4 25 05/09/25 16:18: POC Glucose 123 H 05/09/25 21:05: POC Glucose 120 H 05/10/25 05:18: Sodium 137, Potassium 3.5, Chloride 104, Carbon Dioxide 21.2, Anion Gap 12, BUN 63 H, Creatinine 2.96 H, Estim Creat Clear Calc 35.15 L, Est GFR (MDRD) Non-Af 24 L, BUN/Creatinine Ratio 21.3 H, Glucose 119 H, Calcium 7.7, Phosphorus 5.2 H, Albumin 2.7 L 05/10/25 06:20: POC Glucose 108 H 05/10/25 11:30: POC Glucose 156 H Microbiology: Microbiology 05/06/25 08:50 Blood Culture (Wb) - Anticubital Right Blood Culture - Final GNR lactose commercial internship 05/04/25 14:31 Urine, Catheterized Urine Culture - Final ESBL Escherichia coli 05/04/25 14:05 Blood Culture (Wb) - Anticubital Left Blood Culture - Final GNR lactose commercial internship 05/04/25 14:00 Blood Culture (Wb) - Anticubital Right Blood Culture - Final ESBL Escherichia coli 05/04/25 14:51 Sputum, Induced/Lukens Gram Stain - Final 05/04/25 14:51 Sputum, Induced/Lukens Respiratory Culture - Final Staphylococcus aureus 05/04/25 16:33 Urine, Clean Catch Legionella Antigen - Final 05/04/25 16:33 Urine, Clean Catch Streptococcus pneumoniae Antigen (M - Final 05/04/25 19:16 Nasal Secretion MRSA (PCR) - Final 05/04/25 16:29 Mucosa - Nose Respiratory Panel (PCR) - Final 05/04/25 14:06 Mucosa - Nose SARS-CoV-2, Influenza & RSV (PCR) - Final D/C Instructions Weight Bearing Status: Full weight bearing DC O2, CPAP, BIPAP Needs Home O2 Discharge instructions: No Meaningful Use Info Meaningful Use Meaningful Use Diagnoses (Choose all that apply): None applicable Discharge Plan Admission Admit Date/Time: 05/04/25 15:01 Primary Reason for Your Visit: Septic shock, renal failure Attending Provider: Tu Chavez Primary Care Provider: Monroe Rothman Consulting Providers: Jani Tello; Delano Tran; Juan Macdonald; Tawny Ferreira Instructions Additional Instructions / Restrictions: Follow a no added sugar diet Discharge Orders/Prescriptions Prescriptions: New ertapenem 1 gram recon soln 0.5 g IM DAILY 5 Days Qty: 5 0RF Rx Instructions: Dx: ESBL ecoli bacteremia. Can reconstitute with lidocaine. 500mg IM daily x5 days. Continued albuterol sulfate 90 mcg/actuation HFA aerosol inhaler 2 puff inhalation Q6H PRN (Reason: shortness of breath or wheezing) sildenafil 25 mg tablet 25 mg PO DAILY PRN (Reason: prn) Rx Instructions: administer 30 minutes to 4 hours before activity Discontinued metformin 500 mg tablet 500 mg PO BID Referrals / Follow Up: Monroe Rothman MD [Primary Care Provider, Family Practice] - Within 2 Weeks Tawny Ferreira MD [Med Staff - Consulting, Nephrology] - In 1 Week Referral Note: Call his office to confirm an appointment for next week, tell them you were in the hospital and underwent dialysis Disposition Disposition (needs filled in before D/C Order can be placed): Home, Self Care
[2025-05-10 16:42] VITALS: BP 126/51; PULSE 60; RESP 16; TEMP 37.1; O2SAT 94
--- NOTE | 2025-05-10 16:56 | PHA.DC.COU.R ---
Pharmacy [facility] has performed discharge medication counseling for this patient. The patient was counseled on the following discharge medications and changes in medications for homegoing review. - Ertapenem 500 mg Injection The Reason for Use, instructions for use, and potential side effects were reviewed for all new medications. The patient's questions regarding all of their medications were answered. The patient was able to verbally demonstrate an understanding of their discharge medications. Medications at Discharge Home Medications albuterol sulfate 90 mcg/actuation aerosol inhaler 2 puff inhalation Q6H PRN shortness of breath or wheezing 01/08/21 sildenafil 25 mg tablet 25 mg PO DAILY PRN 11/17/22 ertapenem 1 gram solution for injection 0.5 g IM DAILY 5 days #5 ea 05/10/25
== END 2025-05-10 17:05 | disposition home or self-care (01) | DRG 871 ==
LOC: ED 14:47 → ICU 15:10 → PCU 05-08 12:49
PROVIDERS: Family Medicine; Internal Medicine; Internal Medicine Critical Care Medicine; Internal Medicine Nephrology; Internal Medicine Pulmonary Disease; Nurse Practitioner Adult Health; Admitting Provider Hospitalist; Emergency Provider Emergency Medicine; PCP Family Medicine; Visit Provider Internal Medicine
DX: A41.01 Sepsis due to Methicillin susceptible Staphylococcus aureus (principal); J96.01 Acute respiratory failure with hypoxia; N17.0 Acute kidney failure with tubular necrosis; R65.21 Severe sepsis with septic shock; J15.20 Pneumonia due to staphylococcus, unspecified; E11.10 Type 2 diabetes mellitus with ketoacidosis without coma; E87.3 Alkalosis; D68.9 Coagulation defect, unspecified; J98.11 Atelectasis; N39.0 Urinary tract infection, site not specified; K76.0 Fatty (change of) liver, not elsewhere classified; E11.649 Type 2 diabetes mellitus with hypoglycemia without coma; E66.811 Obesity, class 1; F17.210 Nicotine dependence, cigarettes, uncomplicated; E87.6 Hypokalemia; Z68.33 Body mass index [BMI] 33.0-33.9, adult; Z79.84 Long term (current) use of oral hypoglycemic drugs; B96.20 Unspecified Escherichia coli [E. coli] as the cause of diseases classified elsewhere
CPT/HCPCS: 31500; 31720; 36415; 36600; 71045; 74176; 80048; 80051; 80053; 80069; 80202; 80307; 80320; 81001; 82010; 82077; 82550; 82570; 82803; 82962; 83036; 83520; 83605; 83735; 83930; 84100; 84145; 84165; 84300; 84443; 84478; 84484; 85025; 85027; 85610; 85730; 86037; 86160; 87040; 87070; 87077; 87086; 87088; 87186; 87205; 87449; 87631; 87633; 87641; 90937; 93005; 94002; 94003; 94640; 94660; 94668; 94762; 97162; 97166; 97530; 97535; 97803; 99252; 99285; J2185; A4216; C1752; G0257; G0463; G0480

== ENCOUNTER 2025-05-11 13:39 | Outpatient (CLI) | payer OTHER, SELFPAY ==
[2025-05-11 13:49] VITALS: BP 103/46; PULSE 74; RESP 20; TEMP 36.3
[2025-05-11] MEDS: [UNRECOGNIZED DRUG - OTHER] 0.5 GM IM (14:32)
== END 2025-05-11 23:59 | disposition home or self-care (01) ==
LOC: MEDOUTP 13:41
PROVIDERS: PCP Family Medicine; Referring Provider Internal Medicine Infectious Disease; Visit Provider Internal Medicine Infectious Disease
DX: R78.81 Bacteremia (principal); B96.20 Unspecified Escherichia coli [E. coli] as the cause of diseases classified elsewhere; Z16.12 Extended spectrum beta lactamase (ESBL) resistance
CPT/HCPCS: 96372

== ENCOUNTER 2025-05-12 13:03 | Outpatient (CLI) | payer OTHER, SELFPAY ==
[2025-05-12 13:08] VITALS: BP 137/48; PULSE 51; RESP 16; TEMP 35.8; BMI 33.5
[2025-05-12] MEDS: [UNRECOGNIZED DRUG - OTHER] 0.5 GM IM (13:41)
== END 2025-05-12 23:59 | disposition home or self-care (01) ==
LOC: MEDOUTP 13:04
PROVIDERS: PCP Family Medicine; Referring Provider Internal Medicine Infectious Disease; Visit Provider Internal Medicine Infectious Disease
DX: R78.81 Bacteremia (principal); B96.20 Unspecified Escherichia coli [E. coli] as the cause of diseases classified elsewhere; Z16.12 Extended spectrum beta lactamase (ESBL) resistance
CPT/HCPCS: 96372

== ENCOUNTER 2025-05-13 11:23 | Outpatient (CLI) | payer OTHER, SELFPAY ==
--- OUTSIDE RECORDS SUMMARY | 2025-05-13 11:41 | XMS RPT_ITS | CCD ---
Author Organization [facility] Care Team Providers Care Pension Fund Manager Name Role Phone Dr. Adal Zee Primary Care Provider Dr. Adal Zee Referring Provider Dr. Wilber Patrick Attending Provider Lorna SAWANT, [place] Primary Care Provider [phone] [place] Rothman MD Attending Provider [phone] Lorna SAWANT, [place] Referring Provider Juan Macdonald Attending Unavailable Lorna, Chalon Primary Care Unavailable Juan Macdonald Referring Unavailable Juan Macdonald Attending Unavailable Juan Macdonald Referring Unavailable Lorna, Chalon Primary Care Unavailable Juan Macdonald Attending Unavailable Lorna, Chalon Primary Care Unavailable Juan Macdonald Referring Unavailable Juan Macdonald Attending Unavailable Juan Macdonald Referring Unavailable Lorna, Chalon Primary Care Unavailable Jani Tello Consulting Unavailable Jani Tello Admitting Unavailable Lorna, Chalon Primary Care Unavailable Tu Chavez Attending Unavailable Delano Tran Consulting Unavailable Juan Macdonald Consulting Unavailable Dixon Ferreirayaprabrock Consulting Unavailable Tu Chavez Consulting Unavailable Jani Tello Attending Unavailable Derik Harris Consulting Unavailable Irwin Mcintyre Consulting Unavailable Osvaldo Cardenas Consulting Unavailable Beni Carolina Consulting Unavailable Ghassan Ludwig Consulting Unavailable Noa Meraz Consulting Unavailable Tacos Holliday Consulting Unavailable Betito Real Consulting Unavailable James Veloz Consulting Unavailable Uma Frank Consulting UnavailAndrea Dial Consulting Unavailable Baldomero oCe Consulting Unavailable Peter Zavala Consulting UnavailSky Mirza Consulting Unavailable Elke Rodriguez Consulting Unavailable Conrad Morales Consulting Unavailable Luciano Mustafizur Consulting UnavailTu Fragoso Consulting Unavailable Blayne, Garcia Consulting Unavailable Reta Deleon Consulting Unavailable Keyla Banegas Consulting Unavailable Theo Valdez Consulting Unavailable Ollie Lopez Consulting Unavailable Robby Israel Consulting Unavailable Dhesilvia Jake Consulting Unavailable Brandee Jay Consulting Unavailable Elva Mondragon Consulting Unavailable Teja Juárez Consulting Unavailable Zach Moss Consulting Unavailable Franklin Preciado Consulting Unavailable Siomara Sanford Consulting UnavailGarland Curry Consulting Unavailable Beni Carolina Attending Unavailable Delano Tran Attending Unavailable Juan Macdonald Attending Unavailable Juan Macdonald Referring Unavailable [place] Rothman Primary Care Unavailable [place] Rothman Referring Unavailable [place] Rothman Attending Unavailable Kristen Rothmanon Primary Care Unavailable [place] Rothman Referring Unavailable [place] Rothman Attending Unavailable Lorna, Chalon Primary Care Unavailable Jani Tello Consulting Unavailable Jani Tello Admitting Unavailable Tu Chavez Attending Unavailable Lorna, Chalon Primary Care Unavailable Delano Tran Consulting Unavailable Juan Macdonald Consulting Unavailable Hanna, Jayaprakas Consulting Unavailable Allergies Allergy Classification Reported Allergen(s) Allergy Type Date of Onset Reaction(s) Facility (3 sources) Citalopram Drug Allergy 3 Other [facility] Comment on above: headaches (3 sources) Sulfonamides (Antibiotic) Allergy to substance 3 unknown [facility] (1 source) Citalopram Drug Allergy 5 [facility] Repository (1 source) Sulfonamides (Antibiotic) Drug allergy (disorder) 5 [facility] Repository Medications Current Medications Medication Drug Class(es) Dates Sig (Normalized) Sig (Original) [id number] 200 actuat albuterol 0.09 mg/actuat metered dose inhaler (3 sources) beta2-Adrenergic Agonist Start: 01-08-2021 Albuterol Sulfate 90 mcg/actuation HFA aerosol inhaler Active 2 NMA INHALATION EVERY 6 HOURS as needed January 08, 2021 12:00am Start: 01-08-2021 take 1 puff(s) by in halation every six hours Albuterol Sulfate Active 2 PUFF INHALATION EVERY 6 HOURS January 08, 2021 12:00am metFORMIN hydrochloride 500 mg oral tablet (3 sources) Biguanide Start: 01-08-2021 take 1 tablet by mouth twice daily Metformin 500 mg tablet Active 500 mg PO TWICE A DAY January 08, 2021 12:00am sildenafil 25 mg oral tablet (3 sources) Phosphodiesterase 5 Inhibitor Start: 11-17-2022 Sildenafil 25 mg tablet Active 25 mg PO DAILY as needed November 17, 2022 12:00am administer 30 minutes to 4 hours before activity Completed/Discontinued Medications Medication Drug Class(es) Dates Sig (Normalized) Sig (Original) doxycycline monohydrate 100 mg oral capsule (3 sources) Tetracycline-cla ss Drug Start: 01-08-2021 End: 01-22-2021 take 1 capsule by mouth twice daily Doxycycline Monohydrate 100 mg capsule Discontinued 100 mg PO TWICE A DAY 28 14 0 January 08, 2021 12:00am January 21, 2021 12:00am January 22, 2021 12:01am Problems Active Problems Problem Classification Problem Date Documented Da te Episodic/Chronic Acute and unspecified renal failure (2 sources) Acute kidney failure, unspecified; Translations: [Acute kidney failure, unspecified] Onset: 05-09-2025 Episodic Fluid and electrolyte disorders (2 sources) Alkalosis; Translations: [Alkalosis] Onset: 05-09-2025 Episodic Other skin disorders (3 sources) Epidermoid cyst of skin of neck; Translations: [Epidermal cyst] 11-17-2022 Episodic Other skin disorders (2 sources) Epidermal cyst; Translations: [Sebaceous cyst] 11-17-2022 Episodic Respiratory failure; insufficiency; arrest (adult) (2 sources) Acute respiratory failure, unspecified whether with hypoxia or hypercapnia; Translations: [Acute respiratory failure, unspecified whether with hypoxia or hypercapnia] Onset: 05-09-2025 Episodic Septicemia (except in labor) (2 sources) Sepsis, unspecified organism; Translations: [Sepsis, unspecified organism] Onset: 05-09-2025 Episodic Shock (2 sources) Severe sepsis with septic shock; Translations: [Severe sepsis with septic shock] Onset: 05-09-2025 Episodic Skin and subcutaneous tissue infections (3 sources) Abscess of neck; Translations: [Cutaneous abscess of neck] 01-08-2021 Episodic Spondylosis; intervertebral disc disorders; other back problems (5 sources) Neck pain; Translations: [Cervicalgia] 11-17-2022 Episodic Unclassified (2 sources) Other acidosis; Translations: [Other acidosis] Onset: 05-09-2025 Past or Other Problems Problem Classification Problem Date Documented Da te Episodic/Chronic Other non-traumatic joint disorders (1 source) Effusion, right elbow; Translations: [Effusion, right elbow] Onset: 01-26-2025 Episodic Results Test Name Value Interpretation Reference Range Facility Bedside Glucoseon 05-10-2025 FINGERSTICK GLU 156 mg/dL High 74-106 [facility] Comment on above: Result Comment: KIANA GEMENT OF PATIENT CARE PER NURSING PROTOCOL Performed By: #### L 501.080 ####[facility] [address] [place], [address] FINGERSTICK GLU 108 mg/dL High 74-106 [facility] Comment on above: Result Comment: KIANA GEMENT OF PATIENT CARE PER NURSING PROTOCOL Performed By: #### L 501.080 ####[facility] [address] [place], [address] Discharge Instructionon 04-26 Discharge Instruction Normal [facility] Renal Profileon 05-10-2025 Albumin [Mass/Vol] 2.7 g/dL Low 3.5-5.0 [facility] Comment on above: Performed By: #### L 500.3600 ####[facility] [address] [place], [address] BUN/CRE 21.3 RATIO High -20 [facility] Comment on above: Performed By: #### L 500.3600 ####[facility] [address] [place], [address] Calcium [Mass/Vol] 7.7 mg/dL Normal 7.6-11.0 [facility] Comment on above: Performed By: #### L 500.3600 ####[facility] [address] [place], [address] Chloride [Moles/Vol] 104 mmol/L Normal 98-108 [facility] Comment on above: Performed By: #### L 500.3600 ####[facility] [address] [place], [address] CO2 [Moles/Vol] 21.2 mmol/L Normal 21.0-32.0 [facility] Comment on above: Performed By: #### L 500.3600 ####[facility] [address] [place], [address] Creatinine [Mass/Vol] 2.96 mg/dL High 0.70-1.20 [facility] Comment on above: Performed By: #### L 500.3600 ####[facility] [address] [place], [address] ECRCL 35.15 ml/min Low 50-250 [facility] Comment on above: Performed By: #### L 500.3600 ####[facility] [address] [place], [address] GAP 12 Normal 5-15 [facility] Comment on above: Performed By: #### L 500.3600 ####[facility] [address] [place], [address] GFR/1.73 sq M.predicted among non-blacks MDRD (S/P/Bld) [Vol rate/Area] 24 mL/min/{1.73_m2} Low >60 [facility] Comment on above: Result Comment: mL/m in/1.73m2 CKD-EPI Creatinine Equation (2020) Performed By: #### L 500.3600 ####[facility] [address] [place], [address] Glucose [Mass/Vol] 119 mg/dL High 70-99 [facility] Comment on above: Performed By: #### L 500.3600 ####[facility] [address] [place], [address] Phosphate [Mass/Vol] 5.2 mg/dL High 2.7-4.5 [facility] Comment on above: Performed By: #### L 500.3600 ####[facility] [address] [place], [address] Potassium [Moles/Vol] 3.5 mmol/L Normal 3.3-5.1 [facility] Comment on above: Performed By: #### L 500.3600 ####[facility] [address] [place], [address] Sodium [Moles/Vol] 137 mmol/L Normal 133-145 [facility] Comment on above: Performed By: #### L 500.3600 ####[facility] [address] [place], [address] Urea nitrogen [Mass/Vol] 63 mg/dL High 4-19 [facility] Comment on above: Performed By: #### L 500.3600 ####[facility] [address] [place], [address] ANCAon 05-09-2025 Atypical pANCA <1:20 Normal Neg:<1:20 [facility] Comment on above: Result Comment: The atypical pANCA pattern has been observed in asignificant percentage of patients with ulcerative colitis,primary sclerosing cholangitis and autoimmune hepatitis. Performed By: #### L 3100.3450, L3400.4200, L3100.5700, L3300.1200, L3100.5800 ####[facility] [address] [place], [address] Cytoplasmic Ab <1:20 Normal Neg:<1:20 [facility] Comment on above: Performed By: #### L 3100.3450, L3400.4200, L3100.5700, L3300.1200, L3100.5800 ####[facility] [address] [place], [address] Perinuclear Ab. <1:20 Normal Neg:<1:20 [facility] Comment on above: Result Comment: The presence of positive fluorescence exhibiting P-ANCA orC-ANCA patterns alone is not specific for the diagnosis ofWegener's Granulomatosis (WG) or microscopic polyangiitis.Decisions about treatment should not be based solely onANCA IFA results. The [employer] ANCA [employer] Consensusrecommends follow up testing of positive sera with both [place]-3 and MPO-ANCA enzyme immunoassays. As many as 5% serumsamples are positive only by EIA. Ref. AM J Clin Plyzia8093;111:507-513. Performed By: #### L 3100.3450, L3400.4200, L3100.5700, L3300.1200, L3100.5800 ####[facility] [address] [place], [address] Anti-Glomerular Basement Mem bon 05-09-2025 ANTI-GLOM BM Ab < 0.2 Normal 0.0-0.9 [facility] Comment on above: Result Comment: Perf ormed at: - [facility] [address] [id number] Director: Compa Abdullahi PhD, Phone: [phone] at: [facility] [address] [id number] Director: Gautam Hager MD, Phone: [phone] Performed By: #### L 3100.3450, L3400.4200, L3100.5700, L3300.1200, L3100.5800 ####[facility] [address] [place], [address] Basic Metabolic Profile (BMP )on 05-09-2025 BUN/CRE 18.9 RATIO Normal 05-15 [facility] Comment on above: Performed By: #### L 100.0100, L500.2500 ####[facility] [address] [place], [address] Calcium [Mass/Vol] 7.6 mg/dL Normal 7.6-11.0 [facility] Comment on above: Performed By: #### L 100.0100, L500.2500 ####[facility] [address] [place], [address] Chloride [Moles/Vol] 103 mmol/L Normal 98-108 [facility] Comment on above: Performed By: #### L 100.0100, L500.2500 ####[facility] [address] [place], [address] CO2 [Moles/Vol] 20.4 mmol/L Low 21.0-32.0 [facility] Comment on above: Performed By: #### L 100.0100, L500.2500 ####[facility] [address] [place], [address] Creatinine [Mass/Vol] 3.09 mg/dL High 0.70-1.20 [facility] Comment on above: Performed By: #### L 100.0100, L500.2500 ####[facility] [address] [place], [address] ECRCL 33.55 ml/min Low 50-250 [facility] Comment on above: Performed By: #### L 100.0100, L500.2500 ####[facility] [address] [place], [address] GAP 14 Normal 5-15 [facility] Comment on above: Performed By: #### L 100.0100, L500.2500 ####[facility] [address] [place], [address] GFR/1.73 sq M.predicted among non-blacks MDRD (S/P/Bld) [Vol rate/Area] 23 mL/min/{1.73_m2} Low >60 [facility] Comment on above: Result Comment: mL/m in/1.73m2 CKD-EPI Creatinine Equation (2020) Performed By: #### L 100.0100, L500.2500 ####[facility] [address] [place], [address] Glucose [Mass/Vol] 118 mg/dL High 70-99 [facility] Comment on above: Performed By: #### L 100.0100, L500.2500 ####[facility] [address] [place], [address] Potassium [Moles/Vol] 3.3 mmol/L Normal 3.3-5.1 [facility] Comment on above: Performed By: #### L 100.0100, L500.2500 ####[facility] [address] [place], [address] Sodium [Moles/Vol] 137 mmol/L Normal 133-145 [facility] Comment on above: Performed By: #### L 100.0100, L500.2500 ####[facility] [address] [place], [address] Urea nitrogen [Mass/Vol] 58 mg/dL High 4-19 [facility] Comment on above: Performed By: #### L 100.0100, L500.2500 ####[facility] [address] [place], [address] Bedside Glucoseon 05-09-2025 FINGERSTICK GLU 120 mg/dL High 74-106 [facility] Comment on above: Result Comment: KIANA GEMENT OF PATIENT CARE PER NURSING PROTOCOL Performed By: #### L 501.080 ####[facility] [address] [place], [address] FINGERSTICK GLU 123 mg/dL High 74-106 [facility] Comment on above: Result Comment: KIANA GEMENT OF PATIENT CARE PER NURSING PROTOCOL Performed By: #### L 501.080 ####[facility] [address] [place], [address] FINGERSTICK GLU 116 mg/dL High 74-106 [facility] Comment on above: Result Comment: KIANA GEMENT OF PATIENT CARE PER NURSING PROTOCOL Performed By: #### L 501.080 ####[facility] [address] [place], [address] FINGERSTICK GLU 111 mg/dL High 74-106 [facility] Comment on above: Result Comment: KIANA GEMENT OF PATIENT CARE PER NURSING PROTOCOL Performed By: #### L 501.080 ####[facility] [address] [place], [address] FINGERSTICK GLU 103 mg/dL Normal 74-106 [facility] Comment on above: Result Comment: KIANA GEMENT OF PATIENT CARE PER NURSING PROTOCOL Performed By: #### L 501.080 ####[facility] [address] [place], [address] FINGERSTICK GLU 93 mg/dL Normal 74-106 [facility] Comment on above: Result Comment: KIANA GEMENT OF PATIENT CARE PER NURSING PROTOCOL Performed By: #### L 501.080 ####[facility] [address] [place], [address] CBC W/Diff, Automatedon 10- Absolute Lymph 0.95 X10 3/uL Normal 0.83-4.51 [facility] Comment on above: Performed By: #### L 100.0100, L500.2500 ####[facility] [address] [place], [address] Absolute Neut 9.2 X10 3/uL High 2.0-7.7 [facility] Comment on above: Performed By: #### L 100.0100, L500.2500 ####[facility] [address] [place], [address] Basophils/100 WBC (Bld) 0.3 % Normal 0-1 [facility] Comment on above: Performed By: #### L 100.0100, L500.2500 ####[facility] [address] [place], [address] Eosinophils/100 WBC (Bld) 0.0 % Normal 0-5 [facility] Comment on above: Performed By: #### L 100.0100, L500.2500 ####[facility] [address] [place], [address] Erythrocyte distribution width (RBC) [Ratio] 14.9 % High 11.6-14.6 [facility] Comment on above: Performed By: #### L 100.0100, L500.2500 ####[facility] [address] [place], [address] Hematocrit (Bld) [Volume fraction] 28.4 % Low 40-54 [facility] Comment on above: Performed By: #### L 100.0100, L500.2500 ####[facility] [address] [place], [address] Hemoglobin (Bld) [Mass/Vol] 9.5 g/dL Low 13.0-16.5 [facility] Comment on above: Performed By: #### L 100.0100, L500.2500 ####[facility] [address] [place], [address] IG% 3.300 High 0.0-0.9 [facility] Comment on above: Result Comment: IG% - Immature Granulocytes (promyelocytes, myelocytes andmetamyelocytes) > 1% indicates that a LEFT SHIFT is Present. Performed By: #### L 100.0100, L500.2500 ####[facility] [address] [place], [address] Lymphocytes/100 WBC (Bld) 8.5 % Low 19-41 [facility] Comment on above: Performed By: #### L 100.0100, L500.2500 ####[facility] [address] [place], [address] MCH (RBC) [Entitic mass] 27.4 pg Normal 27.0-32.0 [facility] Comment on above: Performed By: #### L 100.0100, L500.2500 ####[facility] [address] [place], [address] MCHC (RBC) [Mass/Vol] 33.5 g/dL Normal 32-36 [facility] Comment on above: Performed By: #### L 100.0100, L500.2500 ####[facility] [address] [place], [address] MCV (RBC) [Entitic vol] 81.8 fL Normal 80-94 [facility] Comment on above: Performed By: #### L 100.0100, L500.2500 ####[facility] [address] [place], [address] Monocytes/100 WBC (Bld) 5.4 % Normal 0-10 [facility] Comment on above: Performed By: #### L 100.0100, L500.2500 ####[facility] [address] [place], [address] Neutrophils/100 WBC (Bld) 82.5 % High 47-70 [facility] Comment on above: Performed By: #### L 100.0100, L500.2500 ####[facility] [address] [place], [address] Nucleated RBC (Bld) [#/Vol] 0 10*3/uL Normal 0-5 [facility] Comment on above: Performed By: #### L 100.0100, L500.2500 ####[facility] [address] [place], [address] Platelet mean volume (Bld) [Entitic vol] 11.1 fL Normal 6.2-12.0 [facility] Comment on above: Performed By: #### L 100.0100, L500.2500 ####[facility] [address] [place], [address] Platelets (Bld) [#/Vol] 157 10*3/uL Normal 150-450 [facility] Comment on above: Performed By: #### L 100.0100, L500.2500 ####[facility] [address] [place], [address] RBC (Bld) [#/Vol] 3.47 10*6/uL Low 4.6-6.2 [facility] Comment on above: Performed By: #### L 100.0100, L500.2500 ####[facility] [address] [place], [address] RDW SD 44.3 fl High 35.1-43.9 [facility] Comment on above: Performed By: #### L 100.0100, L500.2500 ####[facility] [address] [place], [address] WBC (Bld) [#/Vol] 11.2 10*3/uL High 4.4-11.0 [facility] Comment on above: Performed By: #### L 100.0100, L500.2500 ####[facility] [address] [place], [address] Complement C3on 05-09-2025 COMP C3 86 mg/dL Normal 82-167 [facility] Comment on above: Performed By: #### L 3100.3450, L3400.4200, L3100.5700, L3300.1200, L3100.5800 ####[facility] [address] [place], [address] Complement C4on 05-09-2025 COMPLEMENT, C4 25 mg/dL Normal 12-38 [facility] Comment on above: Performed By: #### L 3100.3450, L3400.4200, L3100.5700, L3300.1200, L3100.5800 ####[facility] [address] [place], [address] Protein Electroph, Son 05-09 Albumin [Mass/Vol] 2.0 g/dL Low 2.9-4.4 [facility] Comment on above: Performed By: #### L 3100.3450, L3400.4200, L3100.5700, L3300.1200, L3100.5800 ####[facility] [address] [place], [address] Albumin/Globulin [Mass ratio] 0.7 {ratio} Normal 0.7-1.7 [facility] Comment on above: Performed By: #### L 3100.3450, L3400.4200, L3100.5700, L3300.1200, L3100.5800 ####[facility] [address] [place], [address] ALPHA-1 GLOBUL 0.4 g/dL Normal 0.0-0.4 [facility] Comment on above: Performed By: #### L 3100.3450, L3400.4200, L3100.5700, L3300.1200, L3100.5800 ####[facility] [address] [place], [address] ALPHA-2 GLOBUL 0.9 g/dL Normal 0.4-1.0 [facility] Comment on above: Performed By: #### L 3100.3450, L3400.4200, L3100.5700, L3300.1200, L3100.5800 ####[facility] [address] [place], [address] BETA GLOBULIN 0.5 g/dL Low 0.7-1.3 [facility] Comment on above: Performed By: #### L 3100.3450, L3400.4200, L3100.5700, L3300.1200, L3100.5800 ####[facility] [address] [place], [address] GAMMA GLOBULIN 1.0 g/dL Normal 0.4-1.8 [facility] Comment on above: Performed By: #### L 3100.3450, L3400.4200, L3100.5700, L3300.1200, L3100.5800 ####[facility] [address] [place], [address] Globulin (S) [Mass/Vol] 2.8 g/dL Normal 2.2-3.9 [facility] Comment on above: Performed By: #### L 3100.3450, L3400.4200, L3100.5700, L3300.1200, L3100.5800 ####[facility] [address] [place], [place], [id number] INTERPRETATION Comment Normal . [facility] Comment on above: Result Comment: Prot ein electrophoresis scan will follow via computer,mail, or vp patient delivery. Performed By: #### L 3100.3450, L3400.4200, L3100.5700, L3300.1200, L3100.5800 ####[facility] [address] [place], [address] M-SPIKE Comment: Normal Not Observed [facility] Comment on above: Result Comment: SPE shows an asymmetrical gamma. Performed By: #### L 3100.3450, L3400.4200, L3100.5700, L3300.1200, L3100.5800 ####[facility] [address] [place], [place], [id number] NOTE: Comment Normal . [facility] Comment on above: Result Comment: Elliot t band in gamma region suspicious for monoclonalimmunoglobulin. This band may represent a benign spike asseen in older people or could be a paraprotein as seen inMultiple Myeloma, Waldenstrom's Macroglobulinemia orLymphoma. Depending on clinical circumstances, furtherdiagnostic studies may include serum immunofixation orserum free light chain quantitation. Performed By: #### L 3100.3450, L3400.4200, L3100.5700, L3300.1200, L3100.5800 ####[facility] [address] [place], [address] Protein [Mass/Vol] 4.8 g/dL Low 6.0-8.5 [facility] Comment on above: Performed By: #### L 3100.3450, L3400.4200, L3100.5700, L3300.1200, L3100.5800 ####[facility] [address] [place], [address] Bedside Glucoseon 05-08-2025 FINGERSTICK GLU 107 mg/dL High 74-106 [facility] Comment on above: Result Comment: KIANA GEMENT OF PATIENT CARE PER NURSING PROTOCOL Performed By: #### L 501.080 ####[facility] [address] [place], [address] FINGERSTICK GLU 130 mg/dL High 74-106 [facility] Comment on above: Result Comment: KIANA GEMENT OF PATIENT CARE PER NURSING PROTOCOL Performed By: #### L 501.080 ####[facility] [address] [place], [address] FINGERSTICK GLU 106 mg/dL Normal 74-106 [facility] Comment on above: Result Comment: KIANA GEMENT OF PATIENT CARE PER NURSING PROTOCOL Performed By: #### L 501.080 ####[facility] [address] [place], [address] CBC W/Diff, Automatedon 04-26 Absolute Lymph 0.67 X10 3/uL Low 0.83-4.51 [facility] Comment on above: Performed By: #### L 100.0100, L500.4050 ####[facility] [address] [place], [address] Absolute Neut 7.8 X10 3/uL High 2.0-7.7 [facility] Comment on above: Performed By: #### L 100.0100, L500.4050 ####[facility] [address] [place], [address] Basophils/100 WBC (Bld) 0.1 % Normal 0-1 [facility] Comment on above: Performed By: #### L 100.0100, L500.4050 ####[facility] [address] [place], [address] Eosinophils/100 WBC (Bld) 0.0 % Normal 0-5 [facility] Comment on above: Performed By: #### L 100.0100, L500.4050 ####[facility] [address] [place], [address] Erythrocyte distribution width (RBC) [Ratio] 15.6 % High 11.6-14.6 [facility] Comment on above: Performed By: #### L 100.0100, L500.4050 ####[facility] [address] [place], [address] Hematocrit (Bld) [Volume fraction] 24.4 % Low 40-54 [facility] Comment on above: Performed By: #### L 100.0100, L500.4050 ####[facility] [address] [place], [address] Hemoglobin (Bld) [Mass/Vol] 8.3 g/dL Low 13.0-16.5 [facility] Comment on above: Performed By: #### L 100.0100, L500.4050 ####[facility] [address] [place], [address] IG% 1.800 High 0.0-0.9 [facility] Comment on above: Result Comment: IG% - Immature Granulocytes (promyelocytes, myelocytes andmetamyelocytes) > 1% indicates that a LEFT SHIFT is Present. Performed By: #### L 100.0100, L500.4050 ####[facility] [address] [place], [address] Lymphocytes/100 WBC (Bld) 7.4 % Low 19-41 [facility] Comment on above: Performed By: #### L 100.0100, L500.4050 ####[facility] [address] [place], [address] MCH (RBC) [Entitic mass] 27.0 pg Normal 27.0-32.0 [facility] Comment on above: Performed By: #### L 100.0100, L500.4050 ####[facility] [address] [place], [address] MCHC (RBC) [Mass/Vol] 34.0 g/dL Normal 32-36 [facility] Comment on above: Performed By: #### L 100.0100, L500.4050 ####[facility] [address] [place], [address] MCV (RBC) [Entitic vol] 79.5 fL Low 80-94 [facility] Comment on above: Performed By: #### L 100.0100, L500.4050 ####[facility] [address] [place], [address] Monocytes/100 WBC (Bld) 5.5 % Normal 0-10 [facility] Comment on above: Performed By: #### L 100.0100, L500.4050 ####[facility] [address] [place], [address] Neutrophils/100 WBC (Bld) 85.2 % High 47-70 [facility] Comment on above: Performed By: #### L 100.0100, L500.4050 ####[facility] [address] [place], [address] Nucleated RBC (Bld) [#/Vol] 0 10*3/uL Normal 0-5 [facility] Comment on above: Performed By: #### L 100.0100, L500.4050 ####[facility] [address] [place], [address] Platelet mean volume (Bld) [Entitic vol] 10.9 fL Normal 6.2-12.0 [facility] Comment on above: Performed By: #### L 100.0100, L500.4050 ####[facility] [address] [place], [address] Platelets (Bld) [#/Vol] 108 10*3/uL Low 150-450 [facility] Comment on above: Performed By: #### L 100.0100, L500.4050 ####[facility] [address] [place], [address] RBC (Bld) [#/Vol] 3.07 10*6/uL Low 4.6-6.2 [facility] Comment on above: Performed By: #### L 100.0100, L500.4050 ####[facility] [address] [place], [address] RDW SD 45.3 fl High 35.1-43.9 [facility] Comment on above: Performed By: #### L 100.0100, L500.4050 ####[facility] [address] [place], [address] WBC (Bld) [#/Vol] 9.1 10*3/uL Normal 4.4-11.0 [facility] Comment on above: Performed By: #### L 100.0100, L500.4050 ####[facility] [address] [place], [address] Comprehensive Metabolic Prof ilon 05-08-2025 Albumin/Globulin [Mass ratio] 0.8 {ratio} Low 0.9-2.4 [facility] Comment on above: Performed By: #### L 100.0100, L500.4050 ####[facility] [address] [place], [address] ALK PHOS 82 U/L Normal 40-129 [facility] Comment on above: Performed By: #### L 100.0100, L500.4050 ####[facility] [address] [place], [address] ALT [Catalytic activity/Vol] 31 U/L Normal <=46 [facility] Comment on above: Performed By: #### L 100.0100, L500.4050 ####[facility] [address] [place], [address] AST [Catalytic activity/Vol] 68 U/L High <=37 [facility] Comment on above: Performed By: #### L 100.0100, L500.4050 ####[facility] [address] [place], [address] Bilirubin [Mass/Vol] 0.66 mg/dL Normal 0.00-1.30 [facility] Comment on above: Performed By: #### L 100.0100, L500.4050 ####[facility] [address] [place], [address] BUN/CRE 15.9 RATIO Normal 10-20 [facility] Comment on above: Performed By: #### L 100.0100, L500.4050 ####[facility] [address] [place], [address] CO2 [Moles/Vol] 21.3 mmol/L Normal 21.0-32.0 [facility] Comment on above: Performed By: #### L 100.0100, L500.4050 ####[facility] [address] [place], [address] Creatinine [Mass/Vol] 3.31 mg/dL High 0.70-1.20 [facility] Comment on above: Performed By: #### L 100.0100, L500.4050 ####[facility] [address] [place], [address] ECRCL 31.70 ml/min Low 50-250 [facility] Comment on above: Performed By: #### L 100.0100, L500.4050 ####[facility] [address] [place], [address] GAP 12 Normal 5-15 [facility] Comment on above: Performed By: #### L 100.0100, L500.4050 ####[facility] [address] [place], [address] GFR/1.73 sq M.predicted among non-blacks MDRD (S/P/Bld) [Vol rate/Area] 21 mL/min/{1.73_m2} Low >60 [facility] Comment on above: Result Comment: mL/m in/1.73m2 CKD-EPI Creatinine Equation (2020) Performed By: #### L 100.0100, L500.4050 ####[facility] [address] [place], [address] Globulin (S) [Mass/Vol] 3.0 g/dL Normal 2.2-4.2 [facility] Comment on above: Performed By: #### L 100.0100, L500.4050 ####[facility] [address] [place], [address] Glucose [Mass/Vol] 136 mg/dL High 70-99 [facility] Comment on above: Performed By: #### L 100.0100, L500.4050 ####[facility] [address] [place], [address] Potassium [Moles/Vol] 4.0 mmol/L Normal 3.3-5.1 [facility] Comment on above: Performed By: #### L 100.0100, L500.4050 ####[facility] [address] [place], [address] T PROT 5.4 g/dL Low 5.9-8.4 [facility] Comment on above: Performed By: #### L 100.0100, L500.4050 ####[facility] [address] [place], [address] Consultation - Infectious Dx on 05-08-2025 Consultation - Infectious Dx Normal [facility] Culture, Blood (WB)on 2024 CUB Normal [facility] Comment on above: Performed By: #### M 200.1000 ####[facility] [address] [place], [address] Renal Profileon 05-08-2025 Albumin [Mass/Vol] 2.4 g/dL Low 3.5-5.0 [facility] Comment on above: Performed By: #### L 500.3600 ####[facility] [address] [place], [address] Performed By: #### L 100.0100, L500.4050 ####[facility] [address] [place], [address] BUN/CRE 15.7 RATIO Normal 05-15 [facility] Comment on above: Performed By: #### L 500.3600 ####[facility] [address] [place], [address] Calcium [Mass/Vol] 7.3 mg/dL Low 7.6-11.0 [facility] Comment on above: Performed By: #### L 500.3600 ####[facility] [address] [place], [address] Performed By: #### L 100.0100, L500.4050 ####[facility] [address] [place], [address] Chloride [Moles/Vol] 104 mmol/L Normal 98-108 [facility] Comment on above: Performed By: #### L 500.3600 ####[facility] [address] [place], [address] Performed By: #### L 100.0100, L500.4050 ####[facility] [address] [place], [address] CO2 [Moles/Vol] 21.7 mmol/L Normal 21.0-32.0 [facility] Comment on above: Performed By: #### L 500.3600 ####[facility] [address] [place], [address] Creatinine [Mass/Vol] 3.38 mg/dL High 0.70-1.20 [facility] Comment on above: Performed By: #### L 500.3600 ####[facility] [address] [place], [address] ECRCL 31.04 ml/min Low 50-250 [facility] Comment on above: Performed By: #### L 500.3600 ####[facility] [address] [place], [address] GAP 11 Normal 5-15 [facility] Comment on above: Performed By: #### L 500.3600 ####[facility] [address] [place], [address] GFR/1.73 sq M.predicted among non-blacks MDRD (S/P/Bld) [Vol rate/Area] 20 mL/min/{1.73_m2} Low >60 [facility] Comment on above: Result Comment: mL/m in/1.73m2 CKD-EPI Creatinine Equation (2020) Performed By: #### L 500.3600 ####[facility] [address] [place], [address] Glucose [Mass/Vol] 138 mg/dL High 70-99 [facility] Comment on above: Performed By: #### L 500.3600 ####[facility] [address] [place], [address] Phosphate [Mass/Vol] 5.1 mg/dL High 2.7-4.5 [facility] Comment on above: Performed By: #### L 500.3600 ####[facility] [address] [place], [address] Potassium [Moles/Vol] 3.9 mmol/L Normal 3.3-5.1 [facility] Comment on above: Performed By: #### L 500.3600 ####[facility] [address] [place], [address] Sodium [Moles/Vol] 137 mmol/L Normal 133-145 [facility] Comment on above: Performed By: #### L 500.3600 ####[facility] [address] [place], [address] Performed By: #### L 100.0100, L500.4050 ####[facility] [address] [place], [address] Urea nitrogen [Mass/Vol] 53 mg/dL High 4-19 [facility] Comment on above: Performed By: #### L 500.3600 ####[facility] [address] [place], [address] Performed By: #### L 100.0100, L500.4050 ####[facility] [address] [place], [address] Bedside Glucoseon 05-07-2025 FINGERSTICK GLU 119 mg/dL High 74-106 [facility] Comment on above: Result Comment: KIANA GEMENT OF PATIENT CARE PER NURSING PROTOCOL Performed By: #### L 501.080 ####[facility] [address] [place], [address] FINGERSTICK GLU 132 mg/dL High 74-106 [facility] Comment on above: Result Comment: Dr Marcos rivera FollowedMANAGEMENT OF PATIENT CARE PER NURSING PROTOCOL Performed By: #### L 501.080 ####[facility] [address] [place], [address] FINGERSTICK GLU 137 mg/dL High 74-106 [facility] Comment on above: Result Comment: KIANA GEMENT OF PATIENT CARE PER NURSING PROTOCOL Performed By: #### L 501.080 ####[facility] [address] [place], [address] FINGERSTICK GLU 134 mg/dL High 74-106 [facility] Comment on above: Result Comment: KIANA GEMENT OF PATIENT CARE PER NURSING PROTOCOL Performed By: #### L 501.080 ####[facility] [address] [place], [address] Blood Gases by [facility] 025 BRADLY TEST Positive Normal [facility] Comment on above: Performed By: #### L 9000.0800 ####[facility] [address] [place], [address] Base excess Calc (Bld) [Moles/Vol] -1 mmol/L Normal -2 to +2 [facility] Comment on above: Performed By: #### L 9000.0800 ####[facility] [address] [place], [address] Blood Gas Type ART Normal [facility] Comment on above: Performed By: #### L 9000.0800 ####[facility] [address] [place], [address] CO2 [Moles/Vol] 24 mmol/L Normal [facility] Comment on above: Performed By: #### L 9000.0800 ####[facility] [address] [place], [address] FI02 30.0 Normal [facility] Comment on above: Performed By: #### L 9000.0800 ####[facility] [address] [place], [address] HCO3 (Bld) [Moles/Vol] 22.7 mmol/L Normal 22-26 [facility] Comment on above: Performed By: #### L 9000.0800 ####[facility] [address] [place], [address] Mode AC Normal [facility] Comment on above: Performed By: #### L 9000.0800 ####[facility] [address] [place], [address] O2 Delivery Dev ET Tube Normal [facility] Comment on above: Performed By: #### L 9000.0800 ####[facility] [address] [place], [address] pCO2 31.9 mmHg Low 35-45 [facility] Comment on above: Performed By: #### L 9000.0800 ####[facility] [address] [place], [address] PEEP 5 Normal [facility] Comment on above: Performed By: #### L 9000.0800 ####[facility] [address] [place], [address] pH (Bld) 7.46 [pH] High 7.35-7.45 [facility] Comment on above: Performed By: #### L 9000.0800 ####[facility] [address] [place], [address] PO2 82 mmHG Normal 75-100 [facility] Comment on above: Performed By: #### L 9000.0800 ####[facility] [address] [place], [address] RR 18 Normal [facility] Comment on above: Performed By: #### L 9000.0800 ####[facility] [address] [place], [address] SITE R Radial Normal [facility] Comment on above: Performed By: #### L 9000.0800 ####[facility] [address] [place], [address] SO2 97 Normal 95-99 [facility] Comment on above: Performed By: #### L 9000.0800 ####[facility] [address] [place], [address] Vt 600.0 mL Normal [facility] Comment on above: Performed By: #### L 9000.0800 ####[facility] [address] [place], [address] CBC W/Diff, Automatedon 10-1 -2024 Absolute Lymph 0.80 X10 3/uL Low 0.83-4.51 [facility] Comment on above: Performed By: #### L 100.0100, L500.4050 ####[facility] [address] [place], [address] Absolute Neut 13.7 X10 3/uL High 2.0-7.7 [facility] Comment on above: Performed By: #### L 100.0100, L500.4050 ####[facility] [address] [place], [address] Basophils/100 WBC (Bld) 0.3 % Normal 0-1 [facility] Comment on above: Performed By: #### L 100.0100, L500.4050 ####[facility] [address] [place], [address] Eosinophils/100 WBC (Bld) 0.0 % Normal 0-5 [facility] Comment on above: Performed By: #### L 100.0100, L500.4050 ####[facility] [address] [place], [address] Erythrocyte distribution width (RBC) [Ratio] 15.9 % High 11.6-14.6 [facility] Comment on above: Performed By: #### L 100.0100, L500.4050 ####[facility] [address] [place], [address] Hematocrit (Bld) [Volume fraction] 27.7 % Low 40-54 [facility] Comment on above: Performed By: #### L 100.0100, L500.4050 ####[facility] [address] [place], [address] Hemoglobin (Bld) [Mass/Vol] 9.8 g/dL Low 13.0-16.5 [facility] Comment on above: Performed By: #### L 100.0100, L500.4050 ####[facility] [address] [place], [address] IG% 1.800 High 0.0-0.9 [facility] Comment on above: Result Comment: IG% - Immature Granulocytes (promyelocytes, myelocytes andmetamyelocytes) > 1% indicates that a LEFT SHIFT is Present. Performed By: #### L 100.0100, L500.4050 ####[facility] [address] [place], [address] Lymphocytes/100 WBC (Bld) 5.1 % Low 19-41 [facility] Comment on above: Performed By: #### L 100.0100, L500.4050 ####[facility] [address] [place], [address] MCH (RBC) [Entitic mass] 27.6 pg Normal 27.0-32.0 [facility] Comment on above: Performed By: #### L 100.0100, L500.4050 ####[facility] [address] [place], [address] MCHC (RBC) [Mass/Vol] 35.4 g/dL Normal 32-36 [facility] Comment on above: Performed By: #### L 100.0100, L500.4050 ####[facility] [address] [place], [address] MCV (RBC) [Entitic vol] 78.0 fL Low 80-94 [facility] Comment on above: Performed By: #### L 100.0100, L500.4050 ####[facility] [address] [place], [address] Monocytes/100 WBC (Bld) 6.0 % Normal 0-10 [facility] Comment on above: Performed By: #### L 100.0100, L500.4050 ####[facility] [address] [place], [address] Neutrophils/100 WBC (Bld) 86.8 % High 47-70 [facility] Comment on above: Performed By: #### L 100.0100, L500.4050 ####[facility] [address] [place], [address] Nucleated RBC (Bld) [#/Vol] 0 10*3/uL Normal 0-5 [facility] Comment on above: Performed By: #### L 100.0100, L500.4050 ####[facility] [address] [place], [address] Platelet mean volume (Bld) [Entitic vol] 11.2 fL Normal 6.2-12.0 [facility] Comment on above: Performed By: #### L 100.0100, L500.4050 ####[facility] [address] [place], [address] Platelets (Bld) [#/Vol] 138 10*3/uL Low 150-450 [facility] Comment on above: Performed By: #### L 100.0100, L500.4050 ####[facility] [address] [place], [address] RBC (Bld) [#/Vol] 3.55 10*6/uL Low 4.6-6.2 [facility] Comment on above: Performed By: #### L 100.0100, L500.4050 ####[facility] [address] [place], [address] RDW SD 45.3 fl High 35.1-43.9 [facility] Comment on above: Performed By: #### L 100.0100, L500.4050 ####[facility] [address] [place], [address] WBC (Bld) [#/Vol] 15.8 10*3/uL High 4.4-11.0 [facility] Comment on above: Performed By: #### L 100.0100, L500.4050 ####[facility] [address] [place], [address] Comprehensive Metabolic Prof [facility] 05-07-2025 Albumin [Mass/Vol] 2.5 g/dL Low 3.5-5.0 [facility] Comment on above: Performed By: #### L 100.0100, L500.4050 ####[facility] [address] [place], [address] Albumin/Globulin [Mass ratio] 0.8 {ratio} Low 0.9-2.4 [facility] Comment on above: Performed By: #### L 100.0100, L500.4050 ####[facility] [address] [place], [address] ALK PHOS 102 U/L Normal 40-129 [facility] Comment on above: Performed By: #### L 100.0100, L500.4050 ####[facility] [address] [place], [address] ALT [Catalytic activity/Vol] 30 U/L Normal <=46 [facility] Comment on above: Performed By: #### L 100.0100, L500.4050 ####[facility] [address] [place], [address] AST [Catalytic activity/Vol] 85 U/L High <=37 [facility] Comment on above: Performed By: #### L 100.0100, L500.4050 ####[facility] [address] [place], [address] Bilirubin [Mass/Vol] 1.01 mg/dL Normal 0.00-1.30 [facility] Comment on above: Performed By: #### L 100.0100, L500.4050 ####[facility] [address] [place], [address] BUN/CRE 11.3 RATIO Normal 10-20 [facility] Comment on above: Performed By: #### L 100.0100, L500.4050 ####[facility] [address] [place], [address] Calcium [Mass/Vol] 7.7 mg/dL Normal 7.6-11.0 [facility] Comment on above: Performed By: #### L 100.0100, L500.4050 ####[facility] [address] [place], [address] Chloride [Moles/Vol] 102 mmol/L Normal 98-108 [facility] Comment on above: Performed By: #### L 100.0100, L500.4050 ####[facility] [address] [place], [address] CO2 [Moles/Vol] 21.0 mmol/L Normal 21.0-32.0 [facility] Comment on above: Performed By: #### L 100.0100, L500.4050 ####[facility] [address] [place], [address] Creatinine [Mass/Vol] 2.52 mg/dL High 0.70-1.20 [facility] Comment on above: Performed By: #### L 100.0100, L500.4050 ####[facility] [address] [place], [address] ECRCL 41.63 ml/min Low 50-250 [facility] Comment on above: Performed By: #### L 100.0100, L500.4050 ####[facility] [address] [place], [address] GAP 12 Normal 5-15 [facility] Comment on above: Performed By: #### L 100.0100, L500.4050 ####[facility] [address] [place], [address] GFR/1.73 sq M.predicted among non-blacks MDRD (S/P/Bld) [Vol rate/Area] 29 mL/min/{1.73_m2} Low >60 [facility] Comment on above: Result Comment: mL/m in/1.73m2 CKD-EPI Creatinine Equation (2020) Performed By: #### L 100.0100, L500.4050 ####[facility] [address] [place], [address] Globulin (S) [Mass/Vol] 3.2 g/dL Normal 2.2-4.2 [facility] Comment on above: Performed By: #### L 100.0100, L500.4050 ####[facility] [address] [place], [address] Glucose [Mass/Vol] 153 mg/dL High 70-99 [facility] Comment on above: Performed By: #### L 100.0100, L500.4050 ####[facility] [address] [place], [address] Potassium [Moles/Vol] 3.9 mmol/L Normal 3.3-5.1 [facility] Comment on above: Performed By: #### L 100.0100, L500.4050 ####[facility] [address] [place], [address] Sodium [Moles/Vol] 135 mmol/L Normal 133-145 [facility] Comment on above: Performed By: #### L 100.0100, L500.4050 ####[facility] [address] [place], [address] T PROT 5.7 g/dL Low 5.9-8.4 [facility] Comment on above: Performed By: #### L 100.0100, L500.4050 ####[facility] [address] [place], [address] Urea nitrogen [Mass/Vol] 29 mg/dL High 4-19 [facility] Comment on above: Performed By: #### L 100.0100, L500.4050 ####[facility] [address] [place], [address] Culture, Blood (WB)on 2024 CUB Normal [facility] Comment on above: Performed By: #### M 200.1000 ####[facility] [address] [place], [address] Phosphoruson 05-07-2025 Phosphate [Mass/Vol] 4.1 mg/dL Normal 2.7-4.5 [facility] Comment on above: Performed By: #### L 500.3600, L501.2300 ####[facility] [address] [place], [address] Renal Profileon 05-07-2025 Albumin [Mass/Vol] 2.5 g/dL Low 3.5-5.0 [facility] Comment on above: Performed By: #### L 500.3600 ####[facility] [address] [place], [address] BUN/CRE 14.1 RATIO Normal 10-20 [facility] Comment on above: Performed By: #### L 500.3600 ####[facility] [address] [place], [address] Calcium [Mass/Vol] 7.7 mg/dL Normal 7.6-11.0 [facility] Comment on above: Performed By: #### L 500.3600 ####[facility] [address] [place], [address] Chloride [Moles/Vol] 104 mmol/L Normal 98-108 [facility] Comment on above: Performed By: #### L 500.3600 ####[facility] [address] [place], [address] CO2 [Moles/Vol] 21.8 mmol/L Normal 21.0-32.0 [facility] Comment on above: Performed By: #### L 500.3600 ####[facility] [address] [place], [address] Creatinine [Mass/Vol] 2.75 mg/dL High 0.70-1.20 [facility] Comment on above: Performed By: #### L 500.3600 ####[facility] [address] [place], [address] ECRCL 38.15 ml/min Low 50-250 [facility] Comment on above: Performed By: #### L 500.3600 ####[facility] [address] [place], [address] GAP 12 Normal 5-15 [facility] Comment on above: Performed By: #### L 500.3600 ####[facility] [address] [place], [address] GFR/1.73 sq M.predicted among non-blacks MDRD (S/P/Bld) [Vol rate/Area] 26 mL/min/{1.73_m2} Low >60 [facility] Comment on above: Result Comment: mL/m in/1.73m2 CKD-EPI Creatinine Equation (2020) Performed By: #### L 500.3600 ####[facility] [address] [place], [address] Glucose [Mass/Vol] 131 mg/dL High 70-99 [facility] Comment on above: Performed By: #### L 500.3600 ####[facility] [address] [place], [address] Phosphate [Mass/Vol] 4.8 mg/dL High 2.7-4.5 [facility] Comment on above: Performed By: #### L 500.3600 ####[facility] [address] [place], [address] Potassium [Moles/Vol] 4.0 mmol/L Normal 3.3-5.1 [facility] Comment on above: Performed By: #### L 500.3600 ####[facility] [address] [place], [address] Sodium [Moles/Vol] 138 mmol/L Normal 133-145 [facility] Comment on above: Performed By: #### L 500.3600 ####[facility] [address] [place], [address] Urea nitrogen [Mass/Vol] 39 mg/dL High 4-19 [facility] Comment on above: Performed By: #### L 500.3600 ####[facility] [address] [place], [address] Albumin [Mass/Vol] 2.5 g/dL Low 3.5-5.0 [facility] Comment on above: Performed By: #### L 500.3600 ####[facility] [address] [place], [address] BUN/CRE 13.2 RATIO Normal 10-20 [facility] Comment on above: Performed By: #### L 500.3600 ####[facility] [address] [place], [address] Calcium [Mass/Vol] 7.9 mg/dL Normal 7.6-11.0 [facility] Comment on above: Performed By: #### L 500.3600 ####[facility] [address] [place], [address] Chloride [Moles/Vol] 102 mmol/L Normal 98-108 [facility] Comment on above: Performed By: #### L 500.3600 ####[facility] [address] [place], [address] CO2 [Moles/Vol] 20.6 mmol/L Low 21.0-32.0 [facility] Comment on above: Performed By: #### L 500.3600 ####[facility] [address] [place], [address] Creatinine [Mass/Vol] 2.46 mg/dL High 0.70-1.20 [facility] Comment on above: Performed By: #### L 500.3600 ####[facility] [address] [place], [address] ECRCL 42.65 ml/min Low 50-250 [facility] Comment on above: Performed By: #### L 500.3600 ####[facility] [address] [place], [address] GAP 14 Normal 5-15 [facility] Comment on above: Performed By: #### L 500.3600 ####[facility] [address] [place], [address] GFR/1.73 sq M.predicted among non-blacks MDRD (S/P/Bld) [Vol rate/Area] 30 mL/min/{1.73_m2} Low >60 [facility] Comment on above: Result Comment: mL/m in/1.73m2 CKD-EPI Creatinine Equation (2020) Performed By: #### L 500.3600 ####[facility] [address] [place], [address] Glucose [Mass/Vol] 156 mg/dL High 70-99 [facility] Comment on above: Performed By: #### L 500.3600 ####[facility] [address] [place], [address] Phosphate [Mass/Vol] 5.0 mg/dL High 2.7-4.5 [facility] Comment on above: Performed By: #### L 500.3600 ####[facility] [address] [place], [address] Potassium [Moles/Vol] 4.1 mmol/L Normal 3.3-5.1 [facility] Comment on above: Performed By: #### L 500.3600 ####[facility] [address] [place], [address] Sodium [Moles/Vol] 136 mmol/L Normal 133-145 [facility] Comment on above: Performed By: #### L 500.3600 ####[facility] [address] [place], [address] Urea nitrogen [Mass/Vol] 33 mg/dL High 4-19 [facility] Comment on above: Performed By: #### L 500.3600 ####[facility] [address] [place], [address] ALB Normal 3.5-5.0 [facility] Comment on above: Performed By: #### L 500.3600, L501.2300 ####[facility] [address] [place], [address] BUN Normal 4-19 [facility] Comment on above: Performed By: #### L 500.3600, L501.2300 ####[facility] [address] [place], [address] BUN/CRE Normal 10-20 [facility] Comment on above: Performed By: #### L 500.3600, L501.2300 ####[facility] [address] [place], [address] Calcium Normal 7.6-11.0 [facility] Comment on above: Performed By: #### L 500.3600, L501.2300 ####[facility] [address] [place], [address] CL Normal 98-108 [facility] Comment on above: Performed By: #### L 500.3600, L501.2300 ####[facility] [address] [place], [address] CO2 Normal 21.0-32.0 [facility] Comment on above: Performed By: #### L 500.3600, L501.2300 ####[facility] [address] [place], [address] CREAT,SERUM Normal 0.70-1.20 [facility] Comment on above: Performed By: #### L 500.3600, L501.2300 ####[facility] [address] [place], [address] ECRCL Normal 50-250 [facility] Comment on above: Performed By: #### L 500.3600, L501.2300 ####[facility] [address] [place], [address] eGFR Normal >60 [facility] Comment on above: Result Comment: mL/m in/1.73m2 CKD-EPI Creatinine Equation (2020) Performed By: #### L 500.3600, L501.2300 ####[facility] [address] [place], [address] GAP Normal 5-15 [facility] Comment on above: Performed By: #### L 500.3600, L501.2300 ####[facility] [address] [place], [address] GLU Normal 70-99 [facility] Comment on above: Performed By: #### L 500.3600, L501.2300 ####[facility] [address] [place], [address] Potassium Normal 3.3-5.1 [facility] Comment on above: Performed By: #### L 500.3600, L501.2300 ####[facility] [address] [place], [address] Renal Profile Normal 133-145 [facility] Comment on above: Performed By: #### L 500.3600, L501.2300 ####[facility] [address] [place], [address] Urine Cultureon 05-07-2025 URC Normal [facility] Comment on above: Performed By: #### M 100.2200 ####[facility] [address] [place], [address] Vancomycin, Trough Levelon 1 VANCO, TROUGH 18.8 ug/mL High 5.0-15.0 [facility] Comment on above: Order Comment: Comme nts: Trough to be drawn 30 mins prior to scheduled [id number] Result Comment: Mitesh mmended goal trough ranges are generally 10-15 mcg/mlfor less severe/complicated infections such as cellulitisor UTI and 15-20 mcg/ml for more severe/complicatedinfections such as bacteremia/sepsis, osteomyelitis,pneumonia or meningitis. Goal trough ranges should takeinto account indication, patient-specific factors andorganism [place].VANCOMYCIN STANDARED DRUG THERAPY TROUGH LEVEL: 5.0 - 15.0 mg/LVANCOMYCIN HIGH INTENSITY THERAPY TROUGH LEVEL: 15.0 - 20.0 mg/LHigh Intensity therapy recommended for serious lifethreatening infections include:- Eswigsrimd-Nhtkvkydhpjj-Pnmkvcoam (Ventilator/Healtcare Associated)-SepsisPLEASE CONTACT PHARMACY SERVICES (#9399) FOR INTERPRETATIONOF RESULTS. Performed By: #### L 501.8820 ####[facility] [address] [place], [address] Basic Metabolic Profile (BMP )on 05-06-2025 BUN/CRE 13.5 RATIO Normal - [facility] Comment on above: Performed By: #### L 500.2500, L501.2300, L501.5200 ####[facility] [address] [place], [address] Calcium [Mass/Vol] 7.3 mg/dL Low 7.6-11.0 [facility] Comment on above: Performed By: #### L 500.2500, L501.2300, L501.5200 ####[facility] [address] [place], [address] Chloride [Moles/Vol] 103 mmol/L Normal 98-108 [facility] Comment on above: Performed By: #### L 500.2500, L501.2300, L501.5200 ####[facility] [address] [place], [address] CO2 [Moles/Vol] 19.4 mmol/L Low 21.0-32.0 [facility] Comment on above: Performed By: #### L 500.2500, L501.2300, L501.5200 ####[facility] [address] [place], [address] Creatinine [Mass/Vol] 2.72 mg/dL High 0.70-1.20 [facility] Comment on above: Performed By: #### L 500.2500, L501.2300, L501.5200 ####[facility] [address] [place], [address] ECRCL 38.79 ml/min Low 50-250 [facility] Comment on above: Performed By: #### L 500.2500, L501.2300, L501.5200 ####[facility] [address] [place], [address] GAP 11 Normal 5-15 [facility] Comment on above: Performed By: #### L 500.2500, L501.2300, L501.5200 ####[facility] [address] [place], [address] GFR/1.73 sq M.predicted among non-blacks MDRD (S/P/Bld) [Vol rate/Area] 26 mL/min/{1.73_m2} Low >60 [facility] Comment on above: Result Comment: mL/m in/1.73m2 CKD-EPI Creatinine Equation (2020) Performed By: #### L 500.2500, L501.2300, L501.5200 ####[facility] [address] [place], [address] Glucose [Mass/Vol] 189 mg/dL High 70-99 [facility] Comment on above: Performed By: #### L 500.2500, L501.2300, L501.5200 ####[facility] [address] [place], [address] Potassium [Moles/Vol] 3.4 mmol/L Normal 3.3-5.1 [facility] Comment on above: Performed By: #### L 500.2500, L501.2300, L501.5200 ####[facility] [address] [place], [address] Sodium [Moles/Vol] 133 mmol/L Normal 133-145 [facility] Comment on above: Performed By: #### L 500.2500, L501.2300, L501.5200 ####[facility] [address] [place], [address] Urea nitrogen [Mass/Vol] 37 mg/dL High 4-19 [facility] Comment on above: Performed By: #### L 500.2500, L501.2300, L501.5200 ####[facility] [address] [place], [address] Bedside Glucoseon 05-06-2025 FINGERSTICK GLU 104 mg/dL Normal 74-106 [facility] Comment on above: Result Comment: KIANA GEMENT OF PATIENT CARE PER NURSING PROTOCOL Performed By: #### L 501.080 ####[facility] [address] [place], [address] FINGERSTICK GLU 140 mg/dL High 74-106 [facility] Comment on above: Result Comment: KIANA GEMENT OF PATIENT CARE PER NURSING PROTOCOL Performed By: #### L 501.080 ####[facility] [address] [place], [address] FINGERSTICK GLU 136 mg/dL High 74-106 [facility] Comment on above: Result Comment: KIANA GEMENT OF PATIENT CARE PER NURSING PROTOCOL Performed By: #### L 501.080 ####[facility] [address] [place], [address] FINGERSTICK GLU 143 mg/dL High 74-106 [facility] Comment on above: Result Comment: KIANA GEMENT OF PATIENT CARE PER NURSING PROTOCOL Performed By: #### L 501.080 ####[facility] [address] [place], [address] FINGERSTICK GLU 149 mg/dL High 74-106 [facility] Comment on above: Result Comment: KIANA GEMENT OF PATIENT CARE PER NURSING PROTOCOL Performed By: #### L 501.080 ####[facility] [address] [place], [address] FINGERSTICK GLU 126 mg/dL High 74-106 [facility] Comment on above: Result Comment: KIANA GEMENT OF PATIENT CARE PER NURSING PROTOCOL Performed By: #### L 501.080 ####[facility] [address] [place], [address] FINGERSTICK GLU 123 mg/dL High 74-106 [facility] Comment on above: Result Comment: KIANA GEMENT OF PATIENT CARE PER NURSING PROTOCOL Performed By: #### L 501.080 ####[facility] [address] [place], [address] FINGERSTICK GLU 135 mg/dL High 74-106 [facility] Comment on above: Result Comment: KIANA GEMENT OF PATIENT CARE PER NURSING PROTOCOL Performed By: #### L 501.080 ####[facility] [address] [place], [address] FINGERSTICK GLU 113 mg/dL High 74-106 [facility] Comment on above: Result Comment: KIANA GEMENT OF PATIENT CARE PER NURSING PROTOCOL Performed By: #### L 501.080 ####[facility] [address] [place], [address] FINGERSTICK GLU 172 mg/dL High 74-106 [facility] Comment on above: Result Comment: KIANA GEMENT OF PATIENT CARE PER NURSING PROTOCOL Performed By: #### L 501.080 ####[facility] [address] [place], [address] FINGERSTICK GLU 148 mg/dL High 74-106 [facility] Comment on above: Result Comment: KIANA GEMENT OF PATIENT CARE PER NURSING PROTOCOL Performed By: #### L 501.080 ####[facility] [address] [place], [address] FINGERSTICK GLU 118 mg/dL High 74-106 [facility] Comment on above: Result Comment: KIANA GEMENT OF PATIENT CARE PER NURSING PROTOCOL Performed By: #### L 501.080 ####[facility] [address] [place], [address] FINGERSTICK GLU 53 mg/dL Low 74-106 [facility] Comment on above: Result Comment: KIANA GEMENT OF PATIENT CARE PER NURSING PROTOCOL Performed By: #### L 501.080 ####[facility] [address] [place], [address] FINGERSTICK GLU 116 mg/dL High 74-106 [facility] Comment on above: Result Comment: KIANA GEMENT OF PATIENT CARE PER NURSING PROTOCOL Performed By: #### L 501.080 ####[facility] [address] [place], [address] FINGERSTICK GLU 125 mg/dL High 74-106 [facility] Comment on above: Result Comment: KIANA GEMENT OF PATIENT CARE PER NURSING PROTOCOL Performed By: #### L 501.080 ####[facility] [address] [place], [address] FINGERSTICK GLU 127 mg/dL High 74-106 [facility] Comment on above: Result Comment: KIANA GEMENT OF PATIENT CARE PER NURSING PROTOCOL Performed By: #### L 501.080 ####[facility] [address] [place], [address] FINGERSTICK GLU 83 mg/dL Normal 74-106 [facility] Comment on above: Result Comment: KIANA GEMENT OF PATIENT CARE PER NURSING PROTOCOL Performed By: #### L 501.080 ####[facility] [address] [place], [address] FINGERSTICK GLU 115 mg/dL High 74-106 [facility] Comment on above: Result Comment: KIANA GEMENT OF PATIENT CARE PER NURSING PROTOCOL Performed By: #### L 501.080 ####[facility] [address] [place], [address] FINGERSTICK GLU 90 mg/dL Normal 74-106 [facility] Comment on above: Result Comment: KIANA GEMENT OF PATIENT CARE PER NURSING PROTOCOL Performed By: #### L 501.080 ####[facility] [address] [place], [address] FINGERSTICK GLU 120 mg/dL High 74-106 [facility] [facility] Comment on above: Result Comment: KIANA GEMENT OF PATIENT CARE PER NURSING PROTOCOL Performed By: #### L 501.080 ####[facility] [address] [place], [address] FINGERSTICK GLU 72 mg/dL Low 74-106 [facility] Comment on above: Result Comment: KIANA GEMENT OF PATIENT CARE PER NURSING PROTOCOL Performed By: #### L 501.080 ####[facility] [address] [place], [address] FINGERSTICK GLU 153 mg/dL High 74-106 [facility] Comment on above: Result Comment: KIANA GEMENT OF PATIENT CARE PER NURSING PROTOCOL Performed By: #### L 501.080 ####[facility] [address] [place], [address] Blood Gases by [facility] 025 BRADLY TEST N/A Normal [facility] Comment on above: Performed By: #### L 9000.0800 ####[facility] [address] [place], [address] Base excess Calc (Bld) [Moles/Vol] -2 mmol/L Normal -2 to +2 [facility] Comment on above: Performed By: #### L 9000.0800 ####[facility] [address] [place], [address] Blood Gas Type ART Normal [facility] Comment on above: Performed By: #### L 8999.08 ####[facility] [address] [place], [address] CO2 [Moles/Vol] 24 mmol/L Normal [facility] Comment on above: Performed By: #### L 8999.0800 ####[facility] [address] [place], [address] FI02 21.0 Normal [facility] Comment on above: Performed By: #### L 8999.08 ####[facility] [address] [place], [address] HCO3 (Bld) [Moles/Vol] 22.6 mmol/L Normal 22-26 [facility] Comment on above: Performed By: #### L 8999.08 ####[facility] [address] [place], [address] Mode AC Normal [facility] Comment on above: Performed By: #### L 8999.08 ####[facility] [address] [place], [address] O2 Delivery Dev Adult Vent Normal [facility] Comment on above: Performed By: #### L 8999.0800 ####[facility] [address] [place], [address] pCO2 33.2 mmHg Low 35-45 [facility] Comment on above: Performed By: #### L 8999.08 ####[facility] [address] [place], [address] PEEP 5 Normal [facility] Comment on above: Performed By: #### L 8999.0800 ####[facility] [address] [place], [address] pH (Bld) 7.44 [pH] Normal 7.35-7.45 [facility] Comment on above: Performed By: #### L 9000.0800 ####[facility] [address] [place], [address] PO2 53 mmHG Low 75-100 [facility] Comment on above: Performed By: #### L 9000.0800 ####[facility] [address] [place], [address] RR 18 Normal [facility] Comment on above: Performed By: #### L 9000.0800 ####[facility] [address] [place], [address] SITE L Radial Normal [facility] Comment on above: Performed By: #### L 9000.0800 ####[facility] [address] [place], [address] SO2 88 Low 95-99 [facility] Comment on above: Performed By: #### L 9000.0800 ####[facility] [address] [place], [address] Vt 600.0 mL Normal [facility] Comment on above: Performed By: #### L 9000.0800 ####[facility] [address] [place], [address] CBC W/Diff, Automatedon 04-26 Absolute Lymph 0.80 X10 3/uL Low 0.83-4.51 [facility] Comment on above: Performed By: #### L 100.0100 ####[facility] [address] [place], [address] Absolute Neut 17.3 X10 3/uL High 2.0-7.7 [facility] Comment on above: Performed By: #### L 100.0100 ####[facility] [address] [place], [address] Basophils/100 WBC (Bld) 0.2 % Normal 0-1 [facility] Comment on above: Performed By: #### L 100.0100 ####[facility] [address] [place], [address] Eosinophils/100 WBC (Bld) 0.2 % Normal 0-5 [facility] Comment on above: Performed By: #### L 100.0100 ####[facility] [address] [place], [address] Erythrocyte distribution width (RBC) [Ratio] 15.6 % High 11.6-14.6 [facility] Comment on above: Performed By: #### L 100.0100 ####[facility] [address] [place], [address] Hematocrit (Bld) [Volume fraction] 27.3 % Low 40-54 [facility] Comment on above: Performed By: #### L 100.0100 ####[facility] [address] [place], [address] Hemoglobin (Bld) [Mass/Vol] 10.1 g/dL Low 13.0-16.5 [facility] Comment on above: Performed By: #### L 100.0100 ####[facility] [address] [place], [address] IG% 3.400 High 0.0-0.9 [facility] Comment on above: Result Comment: IG% - Immature Granulocytes (promyelocytes, myelocytes andmetamyelocytes) > 1% indicates that a LEFT SHIFT is Present. Performed By: #### L 100.0100 ####[facility] [address] [place], [address] Lymphocytes/100 WBC (Bld) 4.0 % Low 19-41 [facility] Comment on above: Performed By: #### L 100.0100 ####[facility] [address] [place], [address] MCH (RBC) [Entitic mass] 28.1 pg Normal 27.0-32.0 [facility] Comment on above: Performed By: #### L 100.0100 ####[facility] [address] [place], [address] MCHC (RBC) [Mass/Vol] 37.0 g/dL High 32-36 [facility] Comment on above: Performed By: #### L 100.0100 ####[facility] [address] [place], [address] MCV (RBC) [Entitic vol] 76.0 fL Low 80-94 [facility] Comment on above: Performed By: #### L 100.0100 ####[facility] [address] [place], [address] Monocytes/100 WBC (Bld) 4.9 % Normal 0-10 [facility] Comment on above: Performed By: #### L 100.0100 ####[facility] [address] [place], [address] Neutrophils/100 WBC (Bld) 87.3 % High 47-70 [facility] Comment on above: Performed By: #### L 100.0100 ####[facility] [address] [place], [address] Nucleated RBC (Bld) [#/Vol] 0 10*3/uL Normal 0-5 [facility] Comment on above: Performed By: #### L 100.0100 ####[facility] [address] [place], [address] Platelet mean volume (Bld) [Entitic vol] 10.9 fL Normal 6.2-12.0 [facility] Comment on above: Performed By: #### L 100.0100 ####[facility] [address] [place], [address] Platelets (Bld) [#/Vol] 136 10*3/uL Low 150-450 [facility] Comment on above: Performed By: #### L 100.0100 ####[facility] [address] [place], [address] RBC (Bld) [#/Vol] 3.59 10*6/uL Low 4.6-6.2 [facility] Comment on above: Performed By: #### L 100.0100 ####[facility] [address] [place], [address] RDW SD 43.3 fl Normal 35.1-43.9 [facility] Comment on above: Performed By: #### L 100.0100 ####[facility] [address] [place], [address] WBC (Bld) [#/Vol] 19.8 10*3/uL High 4.4-11.0 [facility] Comment on above: Performed By: #### L 100.0100 ####[facility] [address] [place], [address] Chest 1 View (Portable)on Chest 1 View (Portable) Normal [facility] Electrolyte Panelon 05-06-20 25 Chloride [Moles/Vol] 105 mmol/L Normal 98-108 [facility] Comment on above: Performed By: #### L 501.5200, L501.5294, L501.2300 ####[facility] [address] [place], [address] CO2 [Moles/Vol] 21.0 mmol/L Normal 21.0-32.0 [facility] Comment on above: Performed By: #### L 501.5200, L501.5294, L501.2300 ####[facility] [address] [place], [address] GAP 10 Normal 5-15 [facility] Comment on above: Performed By: #### L 501.5200, L501.5294, L501.2300 ####[facility] [address] [place], [address] Potassium [Moles/Vol] 3.4 mmol/L Normal 3.3-5.1 [facility] Comment on above: Performed By: #### L 501.5200, L501.5294, L501.2300 ####[facility] [address] [place], [address] Sodium [Moles/Vol] 136 mmol/L Normal 133-145 [facility] Comment on above: Performed By: #### L 501.5200, L501.5294, L501.2300 ####[facility] [address] [place], [address] Chloride [Moles/Vol] 105 mmol/L Normal 98-108 [facility] Comment on above: Performed By: #### L 501.2300, L501.5200, L501.5294 ####[facility] [address] [place], [address] CO2 [Moles/Vol] 21.0 mmol/L Normal 21.0-32.0 [facility] Comment on above: Performed By: #### L 501.2300, L501.5200, L501.5294 ####[facility] [address] [place], [address] GAP 10 Normal 5-15 [facility] Comment on above: Performed By: #### L 501.2300, L501.5200, L501.5294 ####[facility] [address] [place], [address] Potassium [Moles/Vol] 3.4 mmol/L Normal 3.3-5.1 [facility] Comment on above: Performed By: #### L 501.2300, L501.5200, L501.5294 ####[facility] [address] [place], [address] Sodium [Moles/Vol] 135 mmol/L Normal 133-145 [facility] Comment on above: Performed By: #### L 501.2300, L501.5200, L501.5294 ####[facility] [address] [place], [address] Chloride [Moles/Vol] 103 mmol/L Normal 98-108 [facility] Comment on above: Performed By: #### L 501.5294, L501.2300, L501.5200 ####[facility] [address] [place], [address] CO2 [Moles/Vol] 20.2 mmol/L Low 21.0-32.0 [facility] Comment on above: Performed By: #### L 501.5294, L501.2300, L501.5200 ####[facility] [address] [place], [address] GAP 10 Normal 5-15 [facility] Comment on above: Performed By: #### L 501.5294, L501.2300, L501.5200 ####[facility] [address] [place], [address] Potassium [Moles/Vol] 3.2 mmol/L Low 3.3-5.1 [facility] Comment on above: Performed By: #### L 501.5294, L501.2300, L501.5200 ####[facility] [address] [place], [address] Sodium [Moles/Vol] 134 mmol/L Normal 133-145 [facility] Comment on above: Performed By: #### L 501.5294, L501.2300, L501.5200 ####[facility] [address] [place], [address] Chloride [Moles/Vol] 103 mmol/L Normal 98-108 [facility] Comment on above: Performed By: #### L 501.5200, L501.5294, L501.2300 ####[facility] [address] [place], [address] CO2 [Moles/Vol] 18.6 mmol/L Low 21.0-32.0 [facility] Comment on above: Performed By: #### L 501.5200, L501.5294, L501.2300 ####[facility] [address] [place], [address] GAP 12 Normal 5-15 [facility] Comment on above: Performed By: #### L 501.5200, L501.5294, L501.2300 ####[facility] [address] [place], [address] Potassium [Moles/Vol] 3.2 mmol/L Low 3.3-5.1 [facility] Comment on above: Performed By: #### L 501.5200, L501.5294, L501.2300 ####[facility] [address] [place], [address] Sodium [Moles/Vol] 134 mmol/L Normal 133-145 [facility] Comment on above: Performed By: #### L 501.5200, L501.5294, L501.2300 ####[facility] [address] [place], [address] Magnesiumon 05-06-2025 Magnesium [Mass/Vol] 2.3 mg/dL High 1.5-2.2 [facility] Comment on above: Performed By: #### L 501.5200, L501.5294, L501.2300 ####[facility] [address] [place], [address] Magnesium [Mass/Vol] 2.2 mg/dL Normal 1.5-2.2 [facility] Comment on above: Performed By: #### L 501.2300, L501.5200, L501.5294 ####[facility] [address] [place], [address] Magnesium [Mass/Vol] 2.1 mg/dL Normal 1.5-2.2 [facility] Comment on above: Performed By: #### L 500.2500, L501.2300, L501.5200 ####[facility] [address] [place], [address] Magnesium [Mass/Vol] 2.1 mg/dL Normal 1.5-2.2 [facility] Comment on above: Performed By: #### L 501.5294, L501.2300, L501.5200 ####[facility] [address] [place], [address] Magnesium [Mass/Vol] 2.1 mg/dL Normal 1.5-2.2 [facility] Comment on above: Performed By: #### L 501.5200, L501.5294, L501.2300 ####[facility] [address] [place], [address] Phosphoruson 05-06-2025 Phosphate [Mass/Vol] 3.0 mg/dL Normal 2.7-4.5 [facility] Comment on above: Performed By: #### L 501.5200, L501.5294, L501.2300 ####[facility] [address] [place], [address] Phosphate [Mass/Vol] 3.3 mg/dL Normal 2.7-4.5 [facility] Comment on above: Performed By: #### L 501.2300, L501.5200, L501.5294 ####[facility] [address] [place], [address] Phosphate [Mass/Vol] 2.8 mg/dL Normal 2.7-4.5 [facility] Comment on above: Performed By: #### L 500.2500, L501.2300, L501.5200 ####[facility] [address] [place], [address] Phosphate [Mass/Vol] 2.5 mg/dL Low 2.7-4.5 [facility] Comment on above: Performed By: #### L 501.5294, L501.2300, L501.5200 ####[facility] [address] [place], [address] Phosphate [Mass/Vol] 2.8 mg/dL Normal 2.7-4.5 [facility] Comment on above: Performed By: #### L 501.5200, L501.5294, L501.2300 ####[facility] [address] [place], [address] Respiratory Cultureon 2024 RESPC Normal [facility] Comment on above: Performed By: #### M 100.2400, M100.2000 ####[facility] [address] [place], [address] Vancomycin, Trough Levelon 1 VANCO, TROUGH 16.7 ug/mL High 5.0-15.0 [facility] Comment on above: Order Comment: Comme nts: DRAW 30 MIN PRIOR TO [id number] Result Comment: Mitesh mmended goal trough ranges are generally 10-15 mcg/mlfor less severe/complicated infections such as cellulitisor UTI and 15-20 mcg/ml for more severe/complicatedinfections such as bacteremia/sepsis, osteomyelitis,pneumonia or meningitis. Goal trough ranges should takeinto account indication, patient-specific factors andorganism VALENTINA.VANCOMYCIN STANDARED DRUG THERAPY TROUGH LEVEL: 5.0 - 15.0 mg/LVANCOMYCIN HIGH INTENSITY THERAPY TROUGH LEVEL: 15.0 - 20.0 mg/LHigh Intensity therapy recommended for serious lifethreatening infections include:- Uzqzslakut-Ariseixtrdmf-Axgyvqfhl (Ventilator/Healtcare Associated)-SepsisPLEASE CONTACT PHARMACY SERVICES (#7835) FOR INTERPRETATIONOF RESULTS. Performed By: #### L 501.8820 ####[facility] [address] [place], [address] Basic Metabolic Profile (BMP )on 05-05-2025 BUN/CRE 18.7 RATIO Normal 05-15 [facility] Comment on above: Performed By: #### L 500.2500, L501.5200, L500.3600 ####[facility] [address] [place], [address] Calcium [Mass/Vol] 6.9 mg/dL Low 7.6-11.0 [facility] Comment on above: Performed By: #### L 500.2500, L501.5200, L500.3600 ####[facility] [address] [place], [address] CO2 [Moles/Vol] 8.8 mmol/L Invalid Interpretation Code 21.0-32.0 [facility] Comment on above: Result Comment: Crit ical Result(s) Called at:04:00 05-05-25 to Barbara Ruby: Paz Canseco??Results read back by same. Performed By: #### L 500.2500, L501.5200, L500.3600 ####[facility] [address] [place], [address] Creatinine [Mass/Vol] 4.60 mg/dL High 0.70-1.20 [facility] Comment on above: Performed By: #### L 500.2500, L501.5200, L500.3600 ####[facility] [address] [place], [address] ECRCL 22.74 ml/min Low 50-250 [facility] Comment on above: Performed By: #### L 500.2500, L501.5200, L500.3600 ####[facility] [address] [place], [address] GAP 24 High 5-15 [facility] Comment on above: Performed By: #### L 500.2500, L501.5200, L500.3600 ####[facility] [address] [place], [address] GFR/1.73 sq M.predicted among non-blacks MDRD (S/P/Bld) [Vol rate/Area] 14 mL/min/{1.73_m2} Low >60 [facility] Comment on above: Result Comment: mL/m in/1.73m2 CKD-EPI Creatinine Equation (2020) Performed By: #### L 500.2500, L501.5200, L500.3600 ####[facility] [address] [place], [address] Glucose [Mass/Vol] 223 mg/dL High 70-99 [facility] Comment on above: Performed By: #### L 500.2500, L501.5200, L500.3600 ####[facility] [address] [place], [address] Potassium [Moles/Vol] 3.9 mmol/L Normal 3.3-5.1 [facility] Comment on above: Performed By: #### L 500.2500, L501.5200, L500.3600 ####[facility] [address] [place], [address] Sodium [Moles/Vol] 134 mmol/L Normal 133-145 [facility] Comment on above: Performed By: #### L 500.2500, L501.5200, L500.3600 ####[facility] [address] [place], [address] Urea nitrogen [Mass/Vol] 86 mg/dL High 4-19 [facility] Comment on above: Performed By: #### L 500.2500, L501.5200, L500.3600 ####[facility] [address] [place], [address] CO2 [Moles/Vol] 5.9 mmol/L Invalid Interpretation Code 21.0-32.0 [facility] Comment on above: Result Comment: Crit ical Result(s) Called at:00:05-05-25 TO ADELAIDA Arnold: PAZ CANSECO??Results read back by same.Critical Result(s) Called at: 00:05-05-25 TO ADELAIDA Arnold: PAZ CANSECO ??Results read back by same. AMENDED REPORT 05/05/2534 CO2 previously reported as: 6.8 *L mmol/LCritical Result(s) Called at:00:05-05-25 TO ADELAIDA Arnold: PAZ CANSECO??Results read back by same. Performed By: #### L 500.2500, L501.9520, L501.5200 ####[facility] [address] [place], [address] GAP 23 High 5-15 [facility] Comment on above: Result Comment: AMENDED REPORT 05/05/2534 GAP previously reported as: 22 H Performed By: #### L 500.2500, L501.9520, L501.5200 ####[facility] [address] [place], [address] Bedside Glucoseon 05-05-2025 FINGERSTICK GLU 110 mg/dL High 74-106 [facility] Comment on above: Result Comment: KIANA GEMENT OF PATIENT CARE PER NURSING PROTOCOL Performed By: #### L 501.080 ####[facility] [address] [place], [address] FINGERSTICK GLU 120 mg/dL High 74-106 [facility] Comment on above: Result Comment: KIANA GEMENT OF PATIENT CARE PER NURSING PROTOCOL Performed By: #### L 501.080 ####[facility] [address] [place], [address] FINGERSTICK GLU 143 mg/dL High 74-106 [facility] Comment on above: Result Comment: KIANA GEMENT OF PATIENT CARE PER NURSING PROTOCOL Performed By: #### L 501.080 ####[facility] [address] [place], [address] FINGERSTICK GLU 114 mg/dL High 74-106 [facility] Comment on above: Result Comment: KIANA GEMENT OF PATIENT CARE PER NURSING PROTOCOL Performed By: #### L 501.080 ####[facility] [address] [place], [address] FINGERSTICK GLU 146 mg/dL High 74-106 [facility] Comment on above: Result Comment: KIANA GEMENT OF PATIENT CARE PER NURSING PROTOCOL Performed By: #### L 501.080 ####[facility] [address] [place], [address] FINGERSTICK GLU 151 mg/dL High 74-106 [facility] Comment on above: Result Comment: KIANA GEMENT OF PATIENT CARE PER NURSING PROTOCOL Performed By: #### L 501.080 ####[facility] [address] [place], [address] FINGERSTICK GLU 140 mg/dL High 74-106 [facility] Comment on above: Result Comment: KIANA GEMENT OF PATIENT CARE PER NURSING PROTOCOL Performed By: #### L 501.080 ####[facility] [address] [place], [address] FINGERSTICK GLU 172 mg/dL High 74-106 [facility] Comment on above: Result Comment: KIANA GEMENT OF PATIENT CARE PER NURSING PROTOCOL Performed By: #### L 501.080 ####[facility] [address] [place], [address] Beta-Hydroxbytyrateon 2024 BETA-HYDROXYBUT 1.7 mmol/L High 0.0-0.3 [facility] Comment on above: Order Comment: Comme nts: please add onto 829 blood draw Performed By: #### L 501.690 ####[facility] [address] [place], [address] Blood Gases by CPSon 025 Base excess Calc (Bld) [Moles/Vol] -7 mmol/L Low -2 to +2 [facility] Comment on above: Performed By: #### L 9000.0800 ####[facility] [address] [place], [address] CO2 [Moles/Vol] 20 mmol/L Normal [facility] Comment on above: Performed By: #### L 9000.0800 ####[facility] [address] [place], [address] HCO3 (Bld) [Moles/Vol] 18.7 mmol/L Low 22-26 [facility] Comment on above: Performed By: #### L 9000.0800 ####[facility] [address] [place], [address] pCO2 34.5 mmHg Low 35-45 [facility] Comment on above: Performed By: #### L 9000.0800 ####[facility] [address] [place], [address] pH (Bld) 7.34 [pH] Low 7.35-7.45 [facility] Comment on above: Performed By: #### L 9000.0800 ####[facility] [address] [place], [address] PO2 88 mmHG Normal 75-100 [facility] Comment on above: Performed By: #### L 9000.0800 ####[facility] [address] [place], [address] RR 18 Normal [facility] Comment on above: Performed By: #### L 9000.0800 ####[facility] [address] [place], [address] SO2 96 Normal 95-99 [facility] Comment on above: Performed By: #### L 9000.0800 ####[facility] [address] [place], [address] BRADLY TEST Positive Normal [facility] Comment on above: Performed By: #### L 9000.0800 ####[facility] [address] [place], [address] Base excess Calc (Bld) [Moles/Vol] -13 mmol/L Low -2 to +2 [facility] Comment on above: Performed By: #### L 9000.0800 ####[facility] [address] [place], [address] Blood Gas Type ART Normal [facility] Comment on above: Performed By: #### L 9000.0800 ####[facility] [address] [place], [address] CO2 [Moles/Vol] 14 mmol/L Normal [facility] Comment on above: Performed By: #### L 9000.0800 ####[facility] [address] [place], [address] FI02 30.0 Normal [facility] Comment on above: Performed By: #### L 9000.0800 ####[facility] [address] [place], [address] HCO3 (Bld) [Moles/Vol] 13.2 mmol/L Low 22-26 [facility] Comment on above: Performed By: #### L 9000.0800 ####[facility] [address] [place], [address] Mode AC Normal [facility] Comment on above: Performed By: #### L 9000.0800 ####[facility] [address] [place], [address] O2 Delivery Dev Adult Vent Normal [facility] Comment on above: Performed By: #### L 9000.0800 ####[facility] [address] [place], [address] pCO2 25.1 mmHg Low 35-45 [facility] Comment on above: Performed By: #### L 9000.0800 ####[facility] [address] [place], [address] PEEP 5 Normal [facility] Comment on above: Performed By: #### L 9000.0800 ####[facility] [address] [place], [address] pH (Bld) 7.33 [pH] Low 7.35-7.45 [facility] Comment on above: Performed By: #### L 9000.0800 ####[facility] [address] [place], [address] PO2 91 mmHG Normal 75-100 [facility] Comment on above: Performed By: #### L 9000.0800 ####[facility] [address] [place], [address] RR 24 Normal [facility] Comment on above: Performed By: #### L 9000.0800 ####[facility] [address] [place], [address] SITE L Radial Normal [facility] Comment on above: Performed By: #### L 9000.0800 ####[facility] [address] [place], [address] SO2 97 Normal 95-99 [facility] Comment on above: Performed By: #### L 0.0800 ####[facility] [address] [place], [address] Vt 600.0 mL Normal [facility] Comment on above: Performed By: #### L 0.08 ####[facility] [address] [place], [address] BRADLY TEST N/A Normal [facility] Comment on above: Performed By: #### L 0.0800 ####[facility] [address] [place], [address] Base excess Calc (Bld) [Moles/Vol] -22 mmol/L Low -2 to +2 [facility] Comment on above: Performed By: #### L 0.0800 ####[facility] [address] [place], [address] Blood Gas Type ART Normal [facility] Comment on above: Performed By: #### L 0.0800 ####[facility] [address] [place], [address] CO2 [Moles/Vol] 8 mmol/L [facility] Comment on above: Performed By: #### L 0.0800 ####[facility] [address] [place], [address] FI02 50.0 [facility] Comment on above: Performed By: #### L 0.0800 ####[facility] [address] [place], [address] HCO3 (Bld) [Moles/Vol] 7.0 mmol/L Low 22-26 [facility] Comment on above: Performed By: #### L 0.0800 ####[facility] [address] [place], [address] Mode AC Normal [facility] Comment on above: Performed By: #### L 9000.0800 ####[facility] [address] [place], [address] O2 Delivery Dev Adult Vent Normal [facility] Comment on above: Performed By: #### L 9000.0800 ####[facility] [address] [place], [address] pCO2 21.0 mmHg Low 35-45 [facility] Comment on above: Performed By: #### L 9000.0800 ####[facility] [address] [place], [address] PEEP 5 Normal [facility] Comment on above: Performed By: #### L 9000.0800 ####[facility] [address] [place], [address] pH (Bld) 7.13 [pH] Invalid Interpretation Code 7.35-7.45 [facility] Comment on above: Performed By: #### L 0.0800 ####[facility] [address] [place], [address] PO2 105 mmHG High 75-100 [facility] Comment on above: Performed By: #### L 0.0800 ####[facility] [address] [place], [address] Read Back By Yes Normal [facility] Comment on above: Performed By: #### L 0.0800 ####[facility] [address] [place], [address] Results To Tele physician Normal [facility] Comment on above: Performed By: #### L 8999.0800 ####[facility] [address] [place], [address] RR 24 Normal [facility] Comment on above: Performed By: #### L 0.0800 ####[facility] [address] [place], [address] SITE L Radial Normal [facility] Comment on above: Performed By: #### L 9000.0800 ####[facility] [address] [place], [address] SO2 96 Normal 95-99 [facility] Comment on above: Performed By: #### L 9000.0800 ####[facility] [address] [place], [address] Time Given 01:10:28 Normal [facility] Comment on above: Performed By: #### L 9000.0800 ####[facility] [address] [place], [address] Vt 600.0 mL Normal [facility] Comment on above: Performed By: #### L 9000.0800 ####[facility] [address] [place], [address] CBC-Complete Blood Cnt No Di ffon 05-05-2025 Erythrocyte distribution width (RBC) [Ratio] 15.8 % High 11.6-14.6 [facility] Comment on above: Performed By: #### L 100.0500 ####[facility] [address] [place], [address] Hematocrit (Bld) [Volume fraction] 30.8 % Low 40-54 [facility] Comment on above: Performed By: #### L 100.0500 ####[facility] [address] [place], [address] Hemoglobin (Bld) [Mass/Vol] 10.8 g/dL Low 13.0-16.5 [facility] Comment on above: Performed By: #### L 100.0500 ####[facility] [address] [place], [address] MCH (RBC) [Entitic mass] 27.5 pg Normal 27.0-32.0 [facility] Comment on above: Performed By: #### L 100.0500 ####[facility] [address] [place], [address] MCHC (RBC) [Mass/Vol] 35.1 g/dL Normal 32-36 [facility] Comment on above: Performed By: #### L 100.0500 ####[facility] [address] [place], [address] MCV (RBC) [Entitic vol] 78.4 fL Low 80-94 [facility] Comment on above: Performed By: #### L 100.0500 ####[facility] [address] [place], [address] Platelet mean volume (Bld) [Entitic vol] 10.7 fL Normal 6.2-12.0 [facility] Comment on above: Performed By: #### L 100.0500 ####[facility] [address] [place], [address] Platelets (Bld) [#/Vol] 221 10*3/uL Normal 150-450 [facility] Comment on above: Performed By: #### L 100.0500 ####[facility] [address] [place], [address] RBC (Bld) [#/Vol] 3.93 10*6/uL Low 4.6-6.2 [facility] Comment on above: Performed By: #### L 100.0500 ####[facility] [address] [place], [address] RDW SD 45.2 fl High 35.1-43.9 [facility] Comment on above: Performed By: #### L 100.0500 ####[facility] [address] [place], [address] WBC (Bld) [#/Vol] 20.7 10*3/uL High 4.4-11.0 [facility] Comment on above: Performed By: #### L 100.0500 ####[facility] [address] [place], [address] Consultation - Nephrologyon 05-05-2025 Consultation - Nephrology Normal [facility] Electrolyte Panelon 05-05-20 25 Chloride [Moles/Vol] 104 mmol/L Normal 98-108 [facility] Comment on above: Performed By: #### L 501.5200, L501.2300, L501.5294 ####[facility] [address] [place], [address] CO2 [Moles/Vol] 18.3 mmol/L Low 21.0-32.0 [facility] Comment on above: Performed By: #### L 501.5200, L501.2300, L501.5294 ####[facility] [address] [place], [address] GAP 13 Normal 5-15 [facility] Comment on above: Performed By: #### L 501.5200, L501.2300, L501.5294 ####[facility] [address] [place], [address] Potassium [Moles/Vol] 3.2 mmol/L Low 3.3-5.1 [facility] Comment on above: Performed By: #### L 501.5200, L501.2300, L501.5294 ####[facility] [address] [place], [address] Sodium [Moles/Vol] 135 mmol/L Normal 133-145 [facility] Comment on above: Performed By: #### L 501.5200, L501.2300, L501.5294 ####[facility] [address] [place], [address] Chloride [Moles/Vol] 104 mmol/L Normal 98-108 [facility] Comment on above: Performed By: #### L 501.5200, L501.5294, L501.2300 ####[facility] [address] [place], [address] CO2 [Moles/Vol] 17.3 mmol/L Low 21.0-32.0 [facility] Comment on above: Performed By: #### L 501.5200, L501.5294, L501.2300 ####[facility] [address] [place], [address] GAP 15 Normal 5-15 [facility] Comment on above: Performed By: #### L 501.5200, L501.5294, L501.2300 ####[facility] [address] [place], [address] Potassium [Moles/Vol] 3.2 mmol/L Low 3.3-5.1 [facility] Comment on above: Performed By: #### L 501.5200, L501.5294, L501.2300 ####[facility] [address] [place], [address] Sodium [Moles/Vol] 136 mmol/L Normal 133-145 [facility] Comment on above: Performed By: #### L 501.5200, L501.5294, L501.2300 ####[facility] [address] [place], [address] Lactic Acidon 05-05-2025 Lactate [Moles/Vol] mmol/L Normal 0.0-2.0 [facility] Comment on above: Order Comment: Y Performed By: #### L 503.6005 ####[facility] [address] [place], [address] Magnesiumon 05-05-2025 Magnesium [Mass/Vol] 2.4 mg/dL High 1.5-2.2 [facility] Comment on above: Performed By: #### L 501.5200, L501.2300, L501.5294 ####[facility] [address] [place], [address] Magnesium [Mass/Vol] 2.3 mg/dL High 1.5-2.2 [facility] Comment on above: Performed By: #### L 501.5200, L501.5294, L501.2300 ####[facility] [address] [place], [address] Magnesium [Mass/Vol] 2.4 mg/dL High 1.5-2.2 [facility] Comment on above: Performed By: #### L 501.5200, L500.3600 ####[facility] [address] [place], [address] Magnesium [Mass/Vol] 2.5 mg/dL High 1.5-2.2 [facility] Comment on above: Performed By: #### L 501.5200, L500.3600 ####[facility] [address] [place], [address] Magnesium [Mass/Vol] 2.6 mg/dL High 1.5-2.2 [facility] Comment on above: Performed By: #### L 500.2500, L501.5200, L500.3600 ####[facility] [address] [place], [address] Magnesium [Mass/Vol] 3.0 mg/dL High 1.5-2.2 [facility] Comment on above: Performed By: #### L 500.2500, L501.9520, L501.5200 ####[facility] [address] [place], [address] Osmolality, Serumon 10-10-20 25 OSMOLALITY,SER 320 mOsm/KG High 275-295 [facility] Comment on above: Performed By: #### L 501.2300, L505.5000, L501.7300 ####[facility] [address] [place], [address] Phosphoruson 05-05-2025 Phosphate [Mass/Vol] 3.6 mg/dL Normal 2.7-4.5 [facility] Comment on above: Performed By: #### L 501.5200, L501.2300, L501.5294 ####[facility] [address] [place], [address] Phosphate [Mass/Vol] 4.6 mg/dL High 2.7-4.5 [facility] Comment on above: Performed By: #### L 501.5200, L501.5294, L501.2300 ####[facility] [address] [place], [address] Phosphate [Mass/Vol] 5.3 mg/dL High 2.7-4.5 [facility] Comment on above: Performed By: #### L 501.2300 ####[facility] [address] [place], [address] Phosphate [Mass/Vol] 8.2 mg/dL High 2.7-4.5 [facility] Comment on above: Performed By: #### L 501.2300, L505.5000, L501.7300 ####[facility] [address] [place], [address] Procedure Reporton Procedure Report Normal [facility] Renal Profileon 05-05-2025 Albumin [Mass/Vol] 2.6 g/dL Low 3.5-5.0 [facility] Comment on above: Performed By: #### L 501.5200, L500.3600 ####[facility] [address] [place], [address] BUN/CRE 17.1 RATIO Normal 10-20 [facility] Comment on above: Performed By: #### L 501.5200, L500.3600 ####[facility] [address] [place], [address] Calcium [Mass/Vol] 7.2 mg/dL Low 7.6-11.0 [facility] Comment on above: Performed By: #### L 501.5200, L500.3600 ####[facility] [address] [place], [address] Chloride [Moles/Vol] 103 mmol/L Normal 98-108 [facility] Comment on above: Performed By: #### L 501.5200, L500.3600 ####[facility] [address] [place], [address] CO2 [Moles/Vol] 15.7 mmol/L Low 21.0-32.0 [facility] Comment on above: Performed By: #### L 501.5200, L500.3600 ####[facility] [address] [place], [address] Creatinine [Mass/Vol] 3.85 mg/dL High 0.70-1.20 [facility] Comment on above: Performed By: #### L 501.5200, L500.3600 ####[facility] [address] [place], [address] ECRCL 27.27 ml/min Low 50-250 [facility] Comment on above: Performed By: #### L 501.5200, L500.3600 ####[facility] [address] [place], [address] GAP 17 High 5-15 [facility] Comment on above: Performed By: #### L 501.5200, L500.3600 ####[facility] [address] [place], [address] GFR/1.73 sq M.predicted among non-blacks MDRD (S/P/Bld) [Vol rate/Area] 17 mL/min/{1.73_m2} Low >60 [facility] Comment on above: Result Comment: mL/m in/1.73m2 CKD-EPI Creatinine Equation (2020) Performed By: #### L 501.5200, L500.3600 ####[facility] [address] [place], [address] Glucose [Mass/Vol] 192 mg/dL High 70-99 [facility] Comment on above: Performed By: #### L 501.5200, L500.3600 ####[facility] [address] [place], [address] Phosphate [Mass/Vol] 5.4 mg/dL High 2.7-4.5 [facility] Comment on above: Performed By: #### L 501.5200, L500.3600 ####[facility] [address] [place], [address] Potassium [Moles/Vol] 3.2 mmol/L Low 3.3-5.1 [facility] Comment on above: Performed By: #### L 501.5200, L500.3600 ####[facility] [address] [place], [address] Sodium [Moles/Vol] 136 mmol/L Normal 133-145 [facility] Comment on above: Performed By: #### L 501.5200, L500.3600 ####[facility] [address] [place], [address] Urea nitrogen [Mass/Vol] 66 mg/dL High 4-19 [facility] Comment on above: Performed By: #### L 501.5200, L500.3600 ####[facility] [address] [place], [address] Albumin [Mass/Vol] 2.6 g/dL Low 3.5-5.0 [facility] Comment on above: Performed By: #### L 501.5200, L500.3600 ####[facility] [address] [place], [address] Performed By: #### L 500.2500, L501.5200, L500.3600 ####[facility] [address] [place], [address] BUN/CRE 18.5 RATIO Normal 10-20 [facility] Comment on above: Performed By: #### L 501.5200, L500.3600 ####[facility] [address] [place], [address] Calcium [Mass/Vol] 7.2 mg/dL Low 7.6-11.0 [facility] Comment on above: Performed By: #### L 501.5200, L500.3600 ####[facility] [address] [place], [address] Chloride [Moles/Vol] 102 mmol/L Normal 98-108 [facility] Comment on above: Performed By: #### L 501.5200, L500.3600 ####[facility] [address] [place], [address] Performed By: #### L 500.2500, L501.5200, L500.3600 ####[facility] [address] [place], [address] CO2 [Moles/Vol] 10.8 mmol/L Low 21.0-32.0 [facility] Comment on above: Performed By: #### L 501.5200, L500.3600 ####[facility] [address] [place], [address] Creatinine [Mass/Vol] 4.02 mg/dL High 0.70-1.20 [facility] Comment on above: Performed By: #### L 501.5200, L500.3600 ####[facility] [address] [place], [address] GAP 22 High 5-15 [facility] Comment on above: Performed By: #### L 501.5200, L500.3600 ####[facility] [address] [place], [address] GFR/1.73 sq M.predicted among non-blacks MDRD (S/P/Bld) [Vol rate/Area] 16 mL/min/{1.73_m2} Low >60 [facility] Comment on above: Result Comment: mL/m in/1.73m2 CKD-EPI Creatinine Equation (2020) Performed By: #### L 501.5200, L500.3600 ####[facility] [address] [place], [address] Glucose [Mass/Vol] 171 mg/dL High 70-99 [facility] Comment on above: Performed By: #### L 501.5200, L500.3600 ####[facility] [address] [place], [address] Phosphate [Mass/Vol] 6.1 mg/dL High 2.7-4.5 [facility] Comment on above: Performed By: #### L 501.5200, L500.3600 ####[facility] [address] [place], [address] Potassium [Moles/Vol] 3.7 mmol/L Normal 3.3-5.1 [facility] Comment on above: Result Comment: Hemo lysis present, Results??could be affected.?? Performed By: #### L 501.5200, L500.3600 ####[facility] [address] [place], [address] Sodium [Moles/Vol] 135 mmol/L Normal 133-145 [facility] Comment on above: Performed By: #### L 501.5200, L500.3600 ####[facility] [address] [place], [address] Urea nitrogen [Mass/Vol] 74 mg/dL High 4-19 [facility] Comment on above: Performed By: #### L 501.5200, L500.3600 ####[facility] [address] [place], [address] Thyroid Stim Hormone (TSH)on 05-05-2025 TSH 0.368 uIU/mL Normal 0.300-4.200 [facility] Comment on above: Performed By: #### L 500.2500, L501.9520, L501.5200 ####[facility] [address] [place], [address] Urine Drug Screen (VISTA)on 05-05-2025 AMPHETAMINES Negative Normal <1000 ng/mL [facility] Comment on above: Performed By: #### L 501.2300, L505.5000, L501.7300 ####[facility] [address] [place], [address] BARBITIURATES Negative Normal < 200 ng/mL [facility] Comment on above: Performed By: #### L 501.2300, L505.5000, L501.7300 ####[facility] [address] [place], [address] BENZODIAZIPINE Negative Normal < 200 ng/mL [facility] Comment on above: Performed By: #### L 501.2300, L505.5000, L501.7300 ####[facility] [address] [place], [address] BUP Ur Drug Scr Negative Normal < 200 ng/mL [facility] Comment on above: Performed By: #### L 501.2300, L505.5000, L501.7300 ####[facility] [address] [place], [address] COCAINE Negative Normal < 300 ng/mL [facility] Comment on above: Performed By: #### L 501.2300, L505.5000, L501.7300 ####[facility] [address] [place], [address] Fentanyl Negative Normal <5 ng/mL [facility] Comment on above: Result Comment: CONF IRMATORY TESTING FOR ALL POSITIVE URINE DRUG SCREENRESULTS WILL ONLY BE SENT OUT UPON PHYSICIAN ORDER.Billy Pro Urine Drug Screen methods provide only preliminaryanalytical test results. A more specific alternate chemicalmethod must be used in order to obtain a confirmedanalytical result. Gas chromatography/mass spectrometery(GC/MS) is the preferred confirmatory method. Clinicalconsideration and professional judgement should be appliedto any drug of abuse test result, particularly whenpreliminary positive results are used.Urine TCA testing must be ordered separately. Use testmnemonic: UTCA Performed By: #### L 501.2300, L505.5000, L501.7300 ####[facility] [address] [place], [address] METHADONE Negative Normal < 300 ng/mL [facility] Comment on above: Performed By: #### L 501.2300, L505.5000, L501.7300 ####[facility] [address] [place], [address] OPIATES Negative Normal < 300 ng/mL [facility] Comment on above: Performed By: #### L 501.2300, L505.5000, L501.7300 ####[facility] [address] [place], [address] OXYCODONE Negative Normal < 100 ng/mL [facility] Comment on above: Performed By: #### L 501.2300, L505.5000, L501.7300 ####[facility] [address] [place], [address] PCP Negative Normal < 25 ng/mL [facility] Comment on above: Performed By: #### L 501.2300, L505.5000, L501.7300 ####[facility] [address] [place], [address] THC Negative Normal < 50 ng/mL [facility] Comment on above: Performed By: #### L 501.2300, L505.5000, L501.7300 ####[facility] [address] [place], [address] Abdomen/Pelvis without Conto n 05-04-2025 Abdomen/Pelvis without Cont Normal [facility] Alcohol, Blood (Medical)-Ser umon 05-04-2025 SERUM ETOH < 10.1 Normal <=10.0 [facility] Comment on above: Result Comment: This test is for medical purposes only. The legaldefinition of intoxication varies according to local law. Performed By: #### L 501.9100 ####[facility] [address] [place], [address] Basic Metabolic Profile (BMP )on 05-04-2025 BUN/CRE 17.9 RATIO Normal - [facility] Comment on above: Performed By: #### L 500.2500 ####[facility] [address] [place], [address] Calcium [Mass/Vol] 7.0 mg/dL Low 7.6-11.0 [facility] Comment on above: Performed By: #### L 500.2500 ####[facility] [address] [place], [address] Chloride [Moles/Vol] 100 mmol/L Normal 98-108 [facility] Comment on above: Performed By: #### L 500.2500 ####[facility] [address] [place], [address] CO2 [Moles/Vol] 5.4 mmol/L Invalid Interpretation Code 21.0-32.0 [facility] Comment on above: Result Comment: Crit ical Result(s) Called at: 2217 by: SHELDON DEVRIES TO CHRISTIAN??Results read back by same. Performed By: #### L 500.2500 ####[facility] [address] [place], [address] Creatinine [Mass/Vol] 5.74 mg/dL High 0.70-1.20 [facility] Comment on above: Performed By: #### L 500.2500 ####[facility] [address] [place], [address] ECRCL 18.22 ml/min Low 50-250 [facility] Comment on above: Performed By: #### L 500.2500 ####[facility] [address] [place], [address] GAP 24 High 5-15 [facility] Comment on above: Performed By: #### L 500.2500 ####[facility] [address] [place], [address] GFR/1.73 sq M.predicted among non-blacks MDRD (S/P/Bld) [Vol rate/Area] 11 mL/min/{1.73_m2} Low >60 [facility] Comment on above: Result Comment: mL/m in/1.73m2 CKD-EPI Creatinine Equation (2020) Performed By: #### L 500.2500 ####[facility] [address] [place], [address] Glucose [Mass/Vol] 355 mg/dL High 70-99 [facility] Comment on above: Performed By: #### L 500.2500 ####[facility] [address] [place], [address] Potassium [Moles/Vol] 5.1 mmol/L Normal 3.3-5.1 [facility] Comment on above: Performed By: #### L 500.2500 ####[facility] [address] [place], [address] Sodium [Moles/Vol] 129 mmol/L Low 133-145 [facility] Comment on above: Performed By: #### L 500.2500 ####[facility] [address] [place], [address] Urea nitrogen [Mass/Vol] 103 mg/dL Invalid Interpretation Code 4-19 [facility] Comment on above: Result Comment: Crit ical Result(s) Called at: by:??[facility] Result(s) Called at: 2217 by: [facility]Results read back by same. Performed By: #### L 500.2500 ####[facility] [address] [place], [address] BUN/CRE 17.9 RATIO Normal 10-20 [facility] Comment on above: Performed By: #### L 500.2500 ####[facility] [address] [place], [address] Calcium [Mass/Vol] 7.2 mg/dL Low 7.6-11.0 [facility] Comment on above: Performed By: #### L 500.2500 ####[facility] [address] [place], [address] Chloride [Moles/Vol] 101 mmol/L Normal 98-108 [facility] Comment on above: Performed By: #### L 500.2500 ####[facility] [address] [place], [address] CO2 [Moles/Vol] 4.4 mmol/L Invalid Interpretation Code 21.0-32.0 [facility] Comment on above: Result Comment: Crit ical Result(s) Called at: 1806 by:??SHELDON ESCOBEDO Results read back by same. Performed By: #### L 500.2500 ####[facility] [address] [place], [address] Creatinine [Mass/Vol] 5.46 mg/dL High 0.70-1.20 [facility] Comment on above: Performed By: #### L 500.2500 ####[facility] [address] [place], [address] ECRCL 19.06 ml/min Low 50-250 [facility] Comment on above: Performed By: #### L 500.2500 ####[facility] [address] [place], [address] GAP 27 High 5-15 [facility] Comment on above: Performed By: #### L 500.2500 ####[facility] [address] [place], [address] GFR/1.73 sq M.predicted among non-blacks MDRD (S/P/Bld) [Vol rate/Area] 11 mL/min/{1.73_m2} Low >60 [facility] Comment on above: Result Comment: mL/m in/1.73m2 CKD-EPI Creatinine Equation (2020) Performed By: #### L 500.2500 ####[facility] [address] [place], [address] Glucose [Mass/Vol] 227 mg/dL High 70-99 [facility] Comment on above: Performed By: #### L 500.2500 ####[facility] [address] [place], [address] Potassium [Moles/Vol] 4.8 mmol/L Normal 3.3-5.1 [facility] Comment on above: Performed By: #### L 500.2500 ####[facility] [address] [place], [address] Sodium [Moles/Vol] 133 mmol/L Normal 133-145 [facility] Comment on above: Performed By: #### L 500.2500 ####[facility] [address] [place], [address] Urea nitrogen [Mass/Vol] 98 mg/dL High 4-19 [facility] Comment on above: Performed By: #### L 500.2500 ####[facility] [address] [place], [address] CO2 [Moles/Vol] 2.9 mmol/L Invalid Interpretation Code 21.0-32.0 [facility] Comment on above: Result Comment: Crit ical Result(s) Called at: 1417 05/04/2025 by:MISAEL??Results read back by same.Critical Result(s) Called at: 1417 05/04/2025 by:MISAEL??Results read back by same.Critical Result(s) Called at: by:??Results read back bysame. AMENDED REPORT 05/04/25 1435 CO2 previously reported as: 2.9 *L mmol/LCritical Result(s) Called at: 1417 05/04/2025 by:MISAEL??Results read back by same. Performed By: #### L 100.0100, L500.2500 ####[facility] [address] [place], [address] GAP 29 High 5-15 [facility] Comment on above: Result Comment: AMENDED REPORT 05/04/25 1435 GAP previously reported as: 29 H Performed By: #### L 100.0100, L500.2500 ####[facility] [address] [place], [address] Bedside Glucoseon 05-04-2025 FINGERSTICK GLU 261 mg/dL High 74-106 [facility] Comment on above: Result Comment: KIANA GEMENT OF PATIENT CARE PER NURSING PROTOCOL Performed By: #### L 501.080 ####[facility] [address] [place], [address] FINGERSTICK GLU 253 mg/dL High 74-106 [facility] Comment on above: Result Comment: KIANA GEMENT OF PATIENT CARE PER NURSING PROTOCOL Performed By: #### L 501.080 ####[facility] [address] [place], [address] FINGERSTICK GLU 111 mg/dL High 74-106 [facility] Comment on above: Result Comment: KIANA GEMENT OF PATIENT CARE PER NURSING PROTOCOL Performed By: #### L 501.080 ####[facility] [address] [place], [address] Beta-Hydroxbytyrateon 2024 BETA-HYDROXYBUT 2.9 mmol/L High 0.0-0.3 [facility] Comment on above: Performed By: #### L 501.5500, L502.0300, L509.7001, L501.9985, L501.6901 ####[facility] [address] [place], [address] Blood Gases by CPSon 025 Base excess Calc (Bld) [Moles/Vol] -27 mmol/L Low -2 to +2 [facility] Comment on above: Performed By: #### L 9000.0800 ####[facility] [address] [place], [address] Blood Gas Type ART Normal [facility] Comment on above: Performed By: #### L 9000.0800 ####[facility] [address] [place], [address] CO2 [Moles/Vol] 7 mmol/L Normal [facility] Comment on above: Performed By: #### L 9000.0800 ####[facility] [address] [place], [address] FI02 30.0 Normal [facility] Comment on above: Performed By: #### L 9000.0800 ####[facility] [address] [place], [address] HCO3 (Bld) [Moles/Vol] 6.2 mmol/L Low 22-26 [facility] Comment on above: Performed By: #### L 9000.0800 ####[facility] [address] [place], [address] Mode AC Normal [facility] Comment on above: Performed By: #### L 9000.0800 ####[facility] [address] [place], [address] O2 Delivery Dev Adult Vent Normal [facility] Comment on above: Performed By: #### L 9000.0800 ####[facility] [address] [place], [address] pCO2 32.5 mmHg Low 35-45 [facility] Comment on above: Performed By: #### L 9000.0800 ####[facility] [address] [place], [address] PEEP 5 Normal [facility] Comment on above: Performed By: #### L 9000.0800 ####[facility] [address] [place], [address] pH (Bld) 6.89 [pH] Invalid Interpretation Code 7.35-7.45 [facility] Comment on above: Performed By: #### L 9000.0800 ####[facility] [address] [place], [address] PO2 86 mmHG Normal 75-100 [facility] Comment on above: Performed By: #### L 9000.0800 ####[facility] [address] [place], [address] Read Back By Yes [facility] Comment on above: Performed By: #### L 9000.0800 ####[facility] [address] [place], [address] Results To mosteller [facility] Comment on above: Performed By: #### L 8999.0800 ####[facility] [address] [place], [address] RR 24 Normal [facility] Comment on above: Performed By: #### L 8999.0800 ####[facility] [address] [place], [address] SITE R Brach Normal [facility] Comment on above: Performed By: #### L 8999.0800 ####[facility] [address] [place], [address] SO2 86 Low 95-99 [facility] Comment on above: Performed By: #### L 8999.0800 ####[facility] [address] [place], [address] Time Given 18:08:41 [facility] Comment on above: Performed By: #### L 8999.0800 ####[facility] [address] [place], [address] Vt 450.0 mL Normal [facility] Comment on above: Performed By: #### L 8999.0800 ####[facility] [address] [place], [address] BRADLY TEST Positive Normal [facility] Comment on above: Performed By: #### L 8999.0800 ####[facility] [address] [place], [address] BE < -30 Low -2 to +2 [facility] Comment on above: Performed By: #### L 8999.0800 ####[facility] [address] [place], [address] Blood Gas Type ART Normal [facility] Comment on above: Performed By: #### L 8999.0800 ####[facility] [address] [place], [address] CO2 [Moles/Vol] 5 mmol/L Normal [facility] Comment on above: Performed By: #### L 9000.0800 ####[facility] [address] [place], [address] FI02 35.0 Normal [facility] Comment on above: Performed By: #### L 9000.0800 ####[facility] [address] [place], [address] HCO3 (Bld) [Moles/Vol] 4.2 mmol/L Low 22-26 [facility] Comment on above: Performed By: #### L 9000.0800 ####[facility] [address] [place], [address] Mode AC Normal [facility] Comment on above: Performed By: #### L 9000.0800 ####[facility] [address] [place], [address] O2 Delivery Dev Adult Vent Normal [facility] Comment on above: Performed By: #### L 9000.0800 ####[facility] [address] [place], [address] pCO2 26.9 mmHg Low 35-45 [facility] Comment on above: Performed By: #### L 9000.0800 ####[facility] [address] [place], [address] PEEP 5 Normal [facility] Comment on above: Performed By: #### L 9000.0800 ####[facility] [address] [place], [address] pH (Bld) 6.80 [pH] Invalid Interpretation Code 7.35-7.45 [facility] Comment on above: Performed By: #### L 9000.0800 ####[facility] [address] [place], [address] PO2 105 mmHG High 75-100 [facility] Comment on above: Performed By: #### L 9000.0800 ####[facility] [address] [place], [address] Read Back By Yes [facility] Comment on above: Performed By: #### L 9000.0800 ####[facility] [address] [place], [address] Results To mostetler [facility] Comment on above: Performed By: #### L 9000.0800 ####[facility] [address] [place], [address] RR 12 Normal [facility] Comment on above: Performed By: #### L 9000.0800 ####[facility] [address] [place], [address] SITE R Brach [facility] Comment on above: Performed By: #### L 9000.0800 ####[facility] [address] [place], [address] SO2 89 Low 95-99 [facility] Comment on above: Performed By: #### L 9000.0800 ####[facility] [address] [place], [address] Time Given 15:47:52 [facility] Comment on above: Performed By: #### L 9000.0800 ####[facility] [address] [place], [address] Vt 450.0 mL [facility] Comment on above: Performed By: #### L 9000.0800 ####[facility] [address] [place], [address] BE < -30 Low -2 to +2 [facility] Comment on above: Performed By: #### L 9000.0800 ####[facility] [facility] [address] [place], [address] Blood Gas Type ART Normal [facility] Comment on above: Performed By: #### L 8999.0800 ####[facility] [address] [place], [address] FI02 3.0 [facility] Comment on above: Performed By: #### L 8999.0800 ####[facility] [address] [place], [address] HCO3 (Bld) [Moles/Vol] 1.5 mmol/L Low 22-26 [facility] Comment on above: Performed By: #### L 8999.0800 ####[facility] [address] [place], [address] Mode Not entered Normal [facility] Comment on above: Performed By: #### L 0.0800 ####[facility] [address] [place], [address] O2 Delivery Dev Cannula Normal [facility] Comment on above: Performed By: #### L 8999.0800 ####[facility] [address] [place], [address] pCO2 7.2 mmHg Invalid Interpretation Code 35-45 [facility] Comment on above: Performed By: #### L 8999.0800 ####[facility] [address] [place], [address] pH (Bld) 6.93 [pH] Invalid Interpretation Code 7.35-7.45 [facility] Comment on above: Performed By: #### L 8999.0800 ####[facility] [address] [place], [address] PO2 148 mmHG High 75-100 [facility] Comment on above: Performed By: #### L 0.0800 ####[facility] [address] [place], [address] Read Back By Yes Normal [facility] Comment on above: Performed By: #### L 9000.0800 ####[facility] [address] [place], [address] Results To jw Normal [facility] Comment on above: Performed By: #### L 9000.0800 ####[facility] [address] [place], [address] SITE R Brach Normal [facility] Comment on above: Performed By: #### L 9000.0800 ####[facility] [address] [place], [address] SO2 97 Normal 95-99 [facility] Comment on above: Performed By: #### L 9000.0800 ####[facility] [address] [place], [address] Time Given 13:13:02 Normal [facility] Comment on above: Performed By: #### L 9000.0800 ####[facility] [address] [place], [address] TOTAL CO2 < 5 Normal [facility] Comment on above: Performed By: #### L 9000.0800 ####[facility] [address] [place], [address] CBC W/Diff, Automatedon 10-0 PATH REV May foll Normal [facility] Comment on above: Performed By: #### L 100.0100, L500.2500 ####[facility] [address] [place], [address] PLT EST ADEQUATE Normal ADEQ [facility] Comment on above: Performed By: #### L 100.0100, L500.2500 ####[facility] [address] [place], [address] SMEAR COMMENT SCANNED Normal [facility] Comment on above: Performed By: #### L 100.0100, L500.2500 ####[facility] [address] [place], [address] CPK Total, Creatine Kinaseon 05-04-2025 CPK TOTAL 76 U/L Normal 24-195 [facility] Comment on above: Order Comment: Comme nts: DC when propofol is d/c'd Performed By: #### L 501.5000, L501.3620 ####[facility] [address] [place], [address] Chest 1 Viewon 05-04-2025 Chest 1 View Normal [facility] Chest 1 View (Portable)on Chest 1 View (Portable) Normal [facility] Chest 1 View (Portable) Normal [facility] Chest 1 View (Portable) Normal [facility] Chest 1 View (Portable) Normal [facility] Consultation - Intensiviston 05-04-2025 Consultation - It Help Desk Manager Normal [facility] Creatinine, Urineon 05-04-20 25 URINE CREAT 56.00 mg/dL Normal 39.00-259.0 0 [facility] Comment on above: Performed By: #### L 501.5500, L502.0300, L509.7001, L501.9985, L501.6901 ####[facility] [address] [place], [address] Emergency Department Summary on 05-04-2025 Emergency Department Summary Normal [facility] H AND P Exam - Hospitaliston 05-04-2025 H&P Exam - Hospitalist Normal [facility] Hemoglobin A1con 05-04-2025 HbA1c (Bld) [Mass fraction] 6.6 % High <=5.6 [facility] Comment on above: Result Comment: Norm al < 5.7 % Prediabetic 5.7 - 6.4 % Diabetic >or= 6.5 % Please note range changes. Performed By: #### L 501.5500, L502.0300, L509.7001, L501.9985, L501.6901 ####[facility] [address] [place], [address] L501.4021on 05-04-2025 Trop T High Sen 24 ng/L High <=22 [facility] Comment on above: Performed By: #### L 501.4021 ####[facility] [address] [place], [address] L509.7001on 05-04-2025 Procalcitonin 26.50 ng/mL High <=0.10 [facility] Comment on above: Result Comment: Inte rpretation:<0.10-0.25 ng/mL: Antibiotic therapy discouraged. Bacterialinfection unlikely.0.25-0.50 ng/mL: Antibiotic therapy encouraged. Bacterialinfection possible.>0.50 ng/mL: Antibiotic therapy strongly encouraged.Suggestive of presence of bacterial infection.PCT should always be interpreted in the clinical context ofthe patient. Therefore, clinicians should use the PCTresults in conjunction with other laboratory findings andclinical signs of the patient. Performed By: #### L 501.5500, L502.0300, L509.7001, L501.9985, L501.6901 ####[facility] [address] [place], [address] Lactic Acidon 05-04-2025 Lactate [Moles/Vol] 1.1 mmol/L Normal 0.0-2.0 [facility] Comment on above: Performed By: #### L 503.6005 ####[facility] [address] [place], [address] Lactate [Moles/Vol] 2.2 mmol/L Invalid Interpretation Code 0.0-2.0 [facility] Comment on above: Order Comment: Y Result Comment: Crit ical Result(s) Called at: 1453 by: SHELDON YOUSSEF??Results read back by same. Performed By: #### L 503.6005 ####[facility] [address] [place], [address] Legionella Antigen Urineon 1 LEGU Normal [facility] Comment on above: Performed By: #### M 300.4600, M300.4500 ####[facility] [address] [place], [address] M100.678on 05-04-2025 M100.678 Pending SARS-CoV-2 (COVID 19) Negative INFLUENZA A Negative INFLUENZA B Negative RSV PCR Negative Normal [facility] Comment on above: Performed By: #### M 100.678 ####[facility] [address] [place], [address] M8200.1000on 05-04-2025 M8200.1000 Negative Normal [facility] Comment on above: Performed By: #### M 8200.1000 ####[facility] [address] [place], [address] Partial Thromboplast Timeon 05-04-2025 aPTT Coag (Bld) [Time] 32.4 s Normal 24.1-36.2 [facility] Comment on above: Performed By: #### L 300.4310, L300.3900 ####[facility] [address] [place], [address] Procedure Reporton Procedure Report Normal [facility] Prothrombin Time w/INRon INR Coag (PPP) [Relative time] 1.9 {INR} Normal [facility] Comment on above: Performed By: #### L 300.4310, L300.3900 ####[facility] [address] [place], [address] PT Coag (PPP) [Time] 21.7 s High 11.7-14.9 [facility] Comment on above: Performed By: #### L 300.4310, L300.3900 ####[facility] [address] [place], [address] RESPIRATORY PANEL MOLECULARo n 05-04-2025 RP PANEL Normal [facility] Comment on above: Performed By: #### M 100.638 ####[facility] [address] [place], [address] Strep pneumoniae Antig(UR,CS F)on 05-04-2025 STPAG Normal [facility] Comment on above: Performed By: #### M 300.4600, M300.4500 ####[facility] [address] [place], [address] Triglycerideson 05-04-2025 Triglyceride [Mass/Vol] 258 mg/dL High [facility] Comment on above: Order Comment: Comme nts: DC when propofol is d/c'dDC when propofol is d/c'd Result Comment: The drugs N-Acetylcysteine and Metamizole may falselydepress this assay.Normal range: <150 mg/dLBorderline High: 150-199 mg/dLHigh: 200-499 mg/dLVery High: >500 mg/dL Performed By: #### L 501.5000, L501.3620 ####[facility] [address] [place], [address] Troponin T HS 2 HRon 025 Trop T High Sen 23 ng/L High <=22 [facility] Comment on above: Performed By: #### L 499.0042 ####[facility] [address] [place], [address] Trop T High Sen Normal <=22 [facility] Comment on above: Result Comment: [place], COMPLETED @1013 Performed By: #### L 499.0042 ####[facility] [address] [place], [address] Troponin T HS 4 HRon 025 Trop T High Sen 26 ng/L High <=22 [facility] Comment on above: Performed By: #### L 499.0043 ####[facility] [address] [place], [address] Urinalysis, Completeon 05-04 BACTERIA 1+ /hpf Normal None Seen [facility] Comment on above: Order Comment: COLLE CTOR TO SPECIFY Performed By: #### L 400.0001 ####[facility] [address] [place], [address] RBC 25-50 SEEN Normal 0-5 [facility] Comment on above: Order Comment: COLLE CTOR TO SPECIFY Performed By: #### L 400.0001 ####[facility] [address] [place], [address] WBC 25-50 SEEN Normal 0-5 [facility] Comment on above: Order Comment: COLLE CTOR TO SPECIFY Performed By: #### L 400.0001 ####[facility] [address] [place], [address] EPI,SQUAMOUS 0 SEEN Normal 0-[address] [place] [address] Comment on above: Order Comment: COLLE CTOR TO SPECIFY Performed By: #### L 400.0001 ####[facility] [address] [place], [address] Mucus Ql (Urine sed) 0 SEEN Normal [facility] Comment on above: Order Comment: COLLE CTOR TO SPECIFY Performed By: #### L 400.0001 ####[facility] [address] [place], [address] Urine Sodiumon 05-04-2025 Sodium (U) [Moles/Vol] 78 mmol/L Normal Not Establ. [facility] Comment on above: Performed By: #### L 501.5500, L502.0300, L509.7001, L501.9985, L501.6901 ####[facility] [address] [place], [address] Elbow min 3 Viewson 01-23- 25 Elbow min 3 Views Normal [facility] Absolute lymphocyte countOrd ered By: Monroe Lorna on 12-06-2024 Lymphocytes Auto (Unsp spec) [#/Vol] 1.64 10*3/uL 0.83-4.51 [facility] Absolute neutrophil countOrd ered By: Monroe Rothman on 12-06-2024 Neutrophils (Bld) [#/Vol] 3.5 10*3/uL 2.0-7.7 [facility] Anion gap in Serum or Plasma Ordered By: Monroe Rothman on 12-06-2024 Anion gap [Moles/Vol] 11 mmol/L 5- [facility] Automated lymphocyte count a s percentage of total leukocytesOrdered By: Monroe Rothman on 12-06-2024 Lymphocytes/100 WBC Auto (Unsp spec) 28.2 % 19- [facility] BUN/creatinine ratioOrdered By: Monroe Rothman on 12-06-2024 Urea nitrogen/Creatinine [Mass ratio] 15.0 mg/mg 10- [facility] Basophil percentageOrdered B y: Monroe Rothman on 12-06-2024 Basophils/100 WBC (Bld) 0.7 % 0-1 [facility] Bilirubin, totalOrdered By: Monroe Rothman on 12-06-2024 Bilirubin [Mass/Vol] mg/dL 0.00-1.30 [facility] CBC W/Diff, Automatedon 11-24 Absolute Lymph 1.64 X10 3/uL Normal 0.83-4.51 [facility] Comment on above: Order Comment: Order Date: 12/06/24Order Info: [id number] - CBCD Performed By: #### L 501.9520, L501.9985, L500.4100, L100.0100, L501.9910, L500.4050 ####[facility] [address] [place], [place], [address] Absolute Neut 3.5 X10 3/uL Normal 2.0-7.7 [facility] Comment on above: Order Comment: Order Date: 12/06/24Order Info: [id number] - CBCD Performed By: #### L 501.9520, L501.9985, L500.4100, L100.0100, L501.9910, L500.4050 ####[facility] [address] [place], [address] Basophils/100 WBC (Bld) 0.7 % Normal 0-1 [facility] Comment on above: Order Comment: Order Date: 12/06/24Order Info: 0184-1 - CBCD Performed By: #### L 501.9520, L501.9985, L500.4100, L100.0100, L501.9910, L500.4050 ####[facility] [address] [place], [address] Eosinophils/100 WBC (Bld) 2.4 % Normal 0-5 [facility] Comment on above: Order Comment: Order Date: 12/06/24Order Info: 0184-1 - CBCD Performed By: #### L 501.9520, L501.9985, L500.4100, L100.0100, L501.9910, L500.4050 ####[facility] [address] [facility] [place], [address] Erythrocyte distribution width (RBC) [Ratio] 13.7 % Normal 11.6-14.6 [facility] Comment on above: Order Comment: Order Date: 12/06/24Order Info: 0184-1 - CBCD Performed By: #### L 501.9520, L501.9985, L500.4100, L100.0100, L501.9910, L500.4050 ####[facility] [address] [place], [address] Hematocrit (Bld) [Volume fraction] 35.5 % Low 40-54 [facility] Comment on above: Order Comment: Order Date: 12/06/24Order Info: 0184-1 - CBCD Performed By: #### L 501.9520, L501.9985, L500.4100, L100.0100, L501.9910, L500.4050 ####[facility] [address] [place], [address] Hemoglobin (Bld) [Mass/Vol] 12.2 g/dL Low 13.0-16.5 [facility] Comment on above: Order Comment: Order Date: 12/06/24Order Info: 0184-1 - CBCD Performed By: #### L 501.9520, L501.9985, L500.4100, L100.0100, L501.9910, L500.4050 ####[facility] [address] [place], [address] IG% 0.300 Normal 0.0-0.9 [facility] Comment on above: Order Comment: Order Date: 12/06/24Order Info: 0184-1 - CBCD Result Comment: IG% - Immature Granulocytes (promyelocytes, myelocytes andmetamyelocytes) > 1% indicates that a LEFT SHIFT is Present. Performed By: #### L 501.9520, L501.9985, L500.4100, L100.0100, L501.9910, L500.4050 ####[facility] [address] [place], [address] Lymphocytes/100 WBC (Bld) 28.2 % Normal 19-41 [facility] Comment on above: Order Comment: Order Date: 12/06/24Order Info: 0184-1 - CBCD Performed By: #### L 501.9520, L501.9985, L500.4100, L100.0100, L501.9910, L500.4050 ####[facility] [address] [place], [address] MCH (RBC) [Entitic mass] 30.0 pg Normal 27.0-32.0 [facility] Comment on above: Order Comment: Order Date: 12/06/24Order Info: 0184-1 - CBCD Performed By: #### L 501.9520, L501.9985, L500.4100, L100.0100, L501.9910, L500.4050 ####[facility] [address] [place], [address] MCHC (RBC) [Mass/Vol] 34.4 g/dL Normal 32-36 [facility] Comment on above: Order Comment: Order Date: 12/06/24Order Info: 0184-1 - CBCD Performed By: #### L 501.9520, L501.9985, L500.4100, L100.0100, L501.9910, L500.4050 ####[facility] [address] [place], [address] MCV (RBC) [Entitic vol] 87.2 fL Normal 80-94 [facility] Comment on above: Order Comment: Order Date: 12/06/24Order Info: 0184-1 - CBCD Performed By: #### L 501.9520, L501.9985, L500.4100, L100.0100, L501.9910, L500.4050 ####[facility] [address] [place], [address] Monocytes/100 WBC (Bld) 8.1 % Normal 0-10 [facility] Comment on above: Order Comment: Order Date: 12/06/24Order Info: 0184-1 - CBCD Performed By: #### L 501.9520, L501.9985, L500.4100, L100.0100, L501.9910, L500.4050 ####[facility] [address] [place], [address] Neutrophils/100 WBC (Bld) 60.3 % Normal 47-70 [facility] Comment on above: Order Comment: Order Date: 12/06/24Order Info: 0184-1 - CBCD Performed By: #### L 501.9520, L501.9985, L500.4100, L100.0100, L501.9910, L500.4050 ####[facility] [address] [place], [address] Nucleated RBC (Bld) [#/Vol] 0 10*3/uL Normal 0-5 [facility] Comment on above: Order Comment: Order Date: 12/06/24Order Info: 0184-1 - CBCD Performed By: #### L 501.9520, L501.9985, L500.4100, L100.0100, L501.9910, L500.4050 ####[facility] [address] [place], [address] Platelet mean volume (Bld) [Entitic vol] 10.0 fL Normal 6.2-12.0 [facility] Comment on above: Order Comment: Order Date: 12/06/24Order Info: 0184-1 - CBCD Performed By: #### L 501.9520, L501.9985, L500.4100, L100.0100, L501.9910, L500.4050 ####[facility] [address] [place], [address] Platelets (Bld) [#/Vol] 221 10*3/uL Normal 150-450 [facility] Comment on above: Order Comment: Order Date: 12/06/24Order Info: 0184-1 - CBCD Performed By: #### L 501.9520, L501.9985, L500.4100, L100.0100, L501.9910, L500.4050 ####[facility] [address] [place], [address] RBC (Bld) [#/Vol] 4.07 10*6/uL Low 4.6-6.2 [facility] Comment on above: Order Comment: Order Date: 12/06/24Order Info: 0184-1 - CBCD Performed By: #### L 501.9520, L501.9985, L500.4100, L100.0100, L501.9910, L500.4050 ####[facility] [address] [place], [address] RDW SD 43.5 fl Normal 35.1-43.9 [facility] Comment on above: Order Comment: Order Date: 12/06/24Order Info: 0184-1 - CBCD Performed By: #### L 501.9520, L501.9985, L500.4100, L100.0100, L501.9910, L500.4050 ####[facility] [address] [place], [address] WBC (Bld) [#/Vol] 5.8 10*3/uL Normal 4.4-11.0 [facility] Comment on above: Order Comment: Order Date: 12/06/24Order Info: 0184-1 - CBCD Performed By: #### L 501.9520, L501.9985, L500.4100, L100.0100, L501.9910, L500.4050 ####[facility] [address] [facility] [place], [place], [address] Calculated very low density lipoprotein (VLDL) cholesterol measurementOrdered By: Monroe Rothman on 12-06-2024 Calculated very low density lipoprotein (VLDL) cholesterol measurement 44 mg/dL High 5-40 [facility] Carbon dioxide, total [Moles /volume] in Central venous bloodOrdered By: Monroe Rothman on 12-06-2024 CO2 [Moles/Vol] 17.6 mmol/L Low 21.0-32.0 [facility] Chloride assayOrdered By: Daniel Rothman on 12-06-2024 Chloride [Moles/Vol] 112 mmol/L High 98-108 [facility] Comprehensive Metabolic Prof ilon 12-06-2024 Albumin [Mass/Vol] 4.1 g/dL Normal 3.5-5.0 [facility] Comment on above: Order Comment: Order Date: 12/06/24Order Info: [id number] - CMPOrder Info: - LIPIDOrder Info: [id number] - TSHOrder Info: [id number] - PSA Performed By: #### L 501.9520, L501.9985, L500.4100, L100.0100, L501.9910, L500.4050 ####[facility] [address] [place], [address] Albumin/Globulin [Mass ratio] 1.6 {ratio} Normal 0.9-2.4 [facility] Comment on above: Order Comment: Order Date: 12/06/24Order Info: [id number] - CMPOrder Info: - LIPIDOrder Info: [id number] - TSHOrder Info: [id number] - PSA Performed By: #### L 501.9520, L501.9985, L500.4100, L100.0100, L501.9910, L500.4050 ####[facility] [address] [place], [address] ALK PHOS 95 U/L Normal 40-129 [facility] Comment on above: Order Comment: Order Date: 12/06/24Order Info: [id number] - CMPOrder Info: - LIPIDOrder Info: [id number] - TSHOrder Info: [id number] - PSA Performed By: #### L 501.9520, L501.9985, L500.4100, L100.0100, L501.9910, L500.4050 ####[facility] [address] [place], [address] ALT [Catalytic activity/Vol] 14 U/L Normal <=46 [facility] Comment on above: Order Comment: Order Date: 12/06/24Order Info: [id number] - CMPOrder Info: - LIPIDOrder Info: [id number] - TSHOrder Info: [id number] - PSA Performed By: #### L 501.9520, L501.9985, L500.4100, L100.0100, L501.9910, L500.4050 ####[facility] [address] [place], [address] AST [Catalytic activity/Vol] 17 U/L Normal <=37 [facility] Comment on above: Order Comment: Order Date: 12/06/24Order Info: [id number] - CMPOrder Info: [id number] - LIPIDOrder Info: [id number] - TSHOrder Info: [id number] - PSA Performed By: #### L 501.9520, L501.9985, L500.4100, L100.0100, L501.9910, L500.4050 ####[facility] [address] [place], [address] BUN/CRE 15.0 RATIO Normal 10-20 [facility] Comment on above: Order Comment: Order Date: 12/06/24Order Info: 785- - CMPOrder Info: [id number] - LIPIDOrder Info: 3 - TSHOrder Info: [id number] - PSA Performed By: #### L 501.9520, L501.9985, L500.4100, L100.0100, L501.9910, L500.4050 ####[facility] [address] [place], [address] Calcium [Mass/Vol] 8.7 mg/dL Normal 7.6-11.0 [facility] Comment on above: Order Comment: Order Date: 12/06/24Order Info: 07- - CMPOrder Info: [id number] - LIPIDOrder Info: 6-3 - TSHOrder Info: [id number] - PSA Performed By: #### L 501.9520, L501.9985, L500.4100, L100.0100, L501.9910, L500.4050 ####[facility] [address] [place], [address] Chloride [Moles/Vol] 112 mmol/L High 98-108 [facility] Comment on above: Order Comment: Order Date: 12/06/24Order Info: 86-1 - CMPOrder Info: [id number] - LIPIDOrder Info: 3 - TSHOrder Info: [id number] - PSA Performed By: #### L 501.9520, L501.9985, L500.4100, L100.0100, L501.9910, L500.4050 ####[facility] [address] [place], [address] CO2 [Moles/Vol] 17.6 mmol/L Low 21.0-32.0 [facility] Comment on above: Order Comment: Order Date: 12/06/24Order Info: 785-1 - CMPOrder Info: [id number] - LIPIDOrder Info: [id number] - TSHOrder Info: [id number]- - PSA Performed By: #### L 501.9520, L501.9985, L500.4100, L100.0100, L501.9910, L500.4050 ####[facility] [address] [place], [place], [address] Creatinine [Mass/Vol] 1.76 mg/dL High 0.70-1.20 [facility] Comment on above: Order Comment: Order Date: 12/06/24Order Info: 785- - CMPOrder Info: [id number] - LIPIDOrder Info: 3 - TSHOrder Info: [id number] - PSA Performed By: #### L 501.9520, L501.9985, L500.4100, L100.0100, L501.9910, L500.4050 ####[facility] [address] [place], [address] GAP 11 Normal 5-15 [facility] Comment on above: Order Comment: Order Date: 12/06/24Order Info: 86-1 - CMPOrder Info: [id number] - LIPIDOrder Info: 3 - TSHOrder Info: [id number] - PSA Performed By: #### L 501.9520, L501.9985, L500.4100, L100.0100, L501.9910, L500.4050 ####[facility] [address] [place], [place], [address] GFR/1.73 sq M.predicted among non-blacks MDRD (S/P/Bld) [Vol rate/Area] 45 mL/min/{1.73_m2} Low >60 [facility] Comment on above: Order Comment: Order Date: 12/06/24Order Info: 86- - CMPOrder Info: [id number] - LIPIDOrder Info: 3 - TSHOrder Info: [id number] - PSA Result Comment: mL/m in/1.73m2 CKD-EPI Creatinine Equation (2020) Performed By: #### L 501.9520, L501.9985, L500.4100, L100.0100, L501.9910, L500.4050 ####[facility] [address] [place], [place], [address] Globulin (S) [Mass/Vol] 2.6 g/dL Normal 2.2-4.2 [facility] Comment on above: Order Comment: Order Date: 12/06/24Order Info: [id number] - CMPOrder Info: - LIPIDOrder Info: [id number] - TSHOrder Info: [id number] - PSA Performed By: #### L 501.9520, L501.9985, L500.4100, L100.0100, L501.9910, L500.4050 ####[facility] [address] [place], [address] Glucose [Mass/Vol] 94 mg/dL Normal 70-99 [facility] Comment on above: Order Comment: Order Date: 12/06/24Order Info: 785- - CMPOrder Info: [id number] - LIPIDOrder Info: [id number] - TSHOrder Info: [id number] - PSA Performed By: #### L 501.9520, L501.9985, L500.4100, L100.0100, L501.9910, L500.4050 ####[facility] [address] [place], [address] Potassium [Moles/Vol] 3.7 mmol/L Normal 3.3-5.1 [facility] Comment on above: Order Comment: Order Date: 12/06/24Order Info: 0786-1 - CMPOrder Info: [id number] - LIPIDOrder Info: [id number] - TSHOrder Info: [id number] - PSA Performed By: #### L 501.9520, L501.9985, L500.4100, L100.0100, L501.9910, L500.4050 ####[facility] [address] [place], [address] Sodium [Moles/Vol] 141 mmol/L Normal 133-145 [facility] Comment on above: Order Comment: Order Date: 12/06/24Order Info: 785- - CMPOrder Info: [id number] - LIPIDOrder Info: [id number] - TSHOrder Info: [id number] - PSA Performed By: #### L 501.9520, L501.9985, L500.4100, L100.0100, L501.9910, L500.4050 ####[facility] [address] [place], [address] T BILI < 0.15 Normal 0.00-1.30 [facility] Comment on above: Order Comment: Order Date: 12/06/24Order Info: [id number]- - CMPOrder Info: [id number] - LIPIDOrder Info: [id number] - TSHOrder Info: [id number] - PSA Performed By: #### L 501.9520, L501.9985, L500.4100, L100.0100, L501.9910, L500.4050 ####[facility] [address] [place], [address] T PROT 6.6 g/dL Normal 5.9-8.4 [facility] Comment on above: Order Comment: Order Date: 05/13/25Order Info: [id number] - CMPOrder Info: [id number] - LIPIDOrder Info: [id number] - TSHOrder Info: [id number] - PSA Performed By: #### L 501.9520, L501.9985, L500.4100, L100.0100, L501.9910, L500.4050 ####[facility] [address] [place], [place], [address] Urea nitrogen [Mass/Vol] 26 mg/dL High 4-19 [facility] Comment on above: Order Comment: Order Date: 12/06/24Order Info: [id number] - CMPOrder Info: [id number] - LIPIDOrder Info: [id number] - TSHOrder Info: [id number] - PSA Performed By: #### L 501.9520, L501.9985, L500.4100, L100.0100, L501.9910, L500.4050 ####[facility] [address] [place], [place], [address] Eosinophil percentageOrdered By: Monroe Rothman on 12-06-2024 Eosinophils/100 WBC (Bld) 2.4 % 0-5 [facility] Erythrocyte distribution wid th ratioOrdered By: Monroe Rothman on 12-06-2024 Erythrocyte distribution width (RBC) [Ratio] 13.7 % 11.6-14.6 [facility] Erythrocyte distribution wid th standard deviationOrdered By: Monroe Rothman on 12-06-2024 Erythrocyte distribution width (RBC) [Ratio] 43.5 fl 35.1-43.9 [facility] Glomerular filtration rate ( GFR) estimation/1.73 sq m using serum, plasma, or whole bOrdered By: Monroe Rothman on 12-06-2024 GFR/1.73 sq M.predicted among non-blacks MDRD (S/P/Bld) [Vol rate/Area] 45 mL/min/{1.73_m2} Low >60 [facility] Comment on above: mL/min/1.73m2 CKD-EP I Creatinine Equation (2020) Hematocrit Auto (Bld) [Volum e fraction]Ordered By: Monroe Rothman on 12-06-2024 Hematocrit (Bld) [Volume fraction] 35.5 % Low 40-54 [facility] Hemoglobin A1con 12-06-2024 HbA1c (Bld) [Mass fraction] 5.8 % High <=5.6 [facility] Comment on above: Order Comment: Order Date: 12/06/24Order Info: [id number] - A1C Result Comment: Norm al < 5.7 % Prediabetic 5.7 - 6.4 % Diabetic >or= 6.5 % Please note range changes. Performed By: #### L 501.9520, L501.9985, L500.4100, L100.0100, L501.9910, L500.4050 ####[facility] [address] [place], [address] Hemoglobin A1c percentageOrd ered By: Monroe Rothman on 12-06-2024 HbA1c (Bld) [Mass fraction] 5.8 % High <5.7 [facility] Comment on above: Normal < 5.7 % Predi abetic 5.7 - 6.4 % Diabetic >or= 6.5 % Please note range changes. Hemoglobin measurementOrdere d By: Monroe Rothman on 12-06-2024 Hemoglobin (Bld) [Mass/Vol] 12.2 g/dL Low 13.0-16.5 [facility] Immature granulocytes/100 WB C Auto (Bld)Ordered By: Monroe Rothman on 12-06-2024 Immature granulocytes/100 WBC (Bld) 0.300 % 0.0-0.9 [facility] Comment on above: IG% - Immature Granu locytes (promyelocytes, myelocytes and metamyelocytes) > 1% indicates that a LEFT SHIFT is Present. LDL calc ser/plasOrdered By: Monroe Rothman on 12-06-2024 Cholesterol in LDL [Mass/Vol] 104 mg/dL [facility] Comment on above: Egrumnkkns=903-646 m g/dL & Higher Ujka=836 mg/dL or greater Laboratory - Chemistry and C hemistry - challengeOrdered By: Monroe Rothman on 12-06-2024 AST [Catalytic activity/Vol] 17 U/L <38 [facility] Lipid Profileon 12-06-2024 CHOL:HDL 7.26 Normal [facility] Comment on above: Order Comment: Order Date: 12/06/24Order Info: [id number] - CMPOrder Info: [id number] - LIPIDOrder Info: [id number] - TSHOrder Info: [id number] - PSA Performed By: #### L 501.9520, L501.9985, L500.4100, L100.0100, L501.9910, L500.4050 ####[facility] [address] [place], [address] Cholesterol [Mass/Vol] 172 mg/dL Normal <=200 [facility] Comment on above: Order Comment: Order Date: 12/06/24Order Info: [id number] - CMPOrder Info: [id number] - LIPIDOrder Info: [id number] - TSHOrder Info: [id number] - PSA Result Comment: Chol esterol level, Desirable <200 mg/dLBorderline high cholesterol 200-239 mg/dLHigh cholesterol >=240 mg/dLRecommendations of the NCEP Adult Treatment Panel for thefollowing risk-cutoff thresholds for the [place] [facility] [place]. Performed By: #### L 501.9520, L501.9985, L500.4100, L100.0100, L501.9910, L500.4050 ####[facility] [address] [place], [address] Cholesterol in HDL [Mass/Vol] 24 mg/dL Low [facility] Comment on above: Order Comment: Order Date: 12/06/24Order Info: [id number] - CMPOrder Info: [id number] - LIPIDOrder Info: [id number] - TSHOrder Info: [id number] - PSA Result Comment: Lis onal Cholesterol Education Program (NCEP) guidelines:<40 mg/dL: Low HDL-cholesterol (major risk factor for CHD)>= 60 mg/dL: High HDL-cholesterol (negative risk factor forCHD)HDL-cholesterol is affected by a number of factors, e.g.smoking, exercise, hormones, sex and age. Performed By: #### L 501.9520, L501.9985, L500.4100, L100.0100, L501.9910, L500.4050 ####[facility] [address] [place], [address] Cholesterol in LDL [Mass/Vol] 104 mg/dL Normal [facility] Comment on above: Order Comment: Order Date: 12/06/24Order Info: [id number] - CMPOrder Info: [id number] - LIPIDOrder Info: 3 - TSHOrder Info: [id number] - PSA Result Comment: Bord hvmaqs=294-686 mg/dL Higher Hwfm=770 mg/dL or greater Performed By: #### L 501.9520, L501.9985, L500.4100, L100.0100, L501.9910, L500.4050 ####[facility] [address] [place], [address] Cholesterol in VLDL [Mass/Vol] 44 mg/dL High 5-40 [facility] Comment on above: Order Comment: Order Date: 12/06/24Order Info: [id number] - CMPOrder Info: - LIPIDOrder Info: [id number] - TSHOrder Info: [id number] - PSA Performed By: #### L 501.9520, L501.9985, L500.4100, L100.0100, L501.9910, L500.4050 ####[facility] [address] [place], [address] Triglyceride [Mass/Vol] 220 mg/dL High [facility] Comment on above: Order Comment: Order Date: 12/06/24Order Info: [id number] - CMPOrder Info: [id number] - LIPIDOrder Info: [id number] - TSHOrder Info: [id number] - PSA Result Comment: The drugs N-Acetylcysteine and Metamizole may falselydepress this assay.Normal range: <150 mg/dLBorderline High: 150-199 mg/dLHigh: 200-499 mg/dLVery High: >500 mg/dL Performed By: #### L 501.9520, L501.9985, L500.4100, L100.0100, L501.9910, L500.4050 ####[facility] [address] [place], [address] MCV (mean corpuscular volume ) determinationOrdered By: Monroe Rothman on 12-06-2024 MCV (RBC) [Entitic vol] 87.2 fL 80-94 [facility] Mean corpuscular hemoglobin (MCH) determinationOrdered By: [facility] on 12-[facility]-2024 MCH (RBC) [Entitic mass] 30.0 pg 27.0-32.0 [facility] Mean corpuscular hemoglobin concentration (MCHC) determinationOrdered By: [facility] on 12-06-2024 MCHC (RBC) [Mass/Vol] 34.4 g/dL 32-36 [facility] Mean platelet volume determi nationOrdered By: [facility] on 12-06-2024 Platelet mean volume (Bld) [Entitic vol] 10.0 fL 6.2-12.0 [facility] Monocyte percentageOrdered B y: [facility] on 12-06-2024 Monocytes/100 WBC (Bld) 8.1 % 0-10 [facility] Neutrophil percentageOrdered By: [facility] on 12-06-2024 Neutrophils/100 WBC (Bld) 60.3 % 47-70 [facility] Nucleated red blood cell per centageOrdered By: [facility] on 12-06-2024 Nucleated RBC/100 WBC (Bld) [Ratio] 0 % 0-5 [facility] PSA,Total - Annual Screenon 12-06-2024 PSA,TOT SCREEN 0.60 ng/mL Normal 0.02-4.00 [facility] Comment on above: Order Comment: Order Date: 12/06/24Order Info: [id number] - CMPOrder Info: [id number] - LIPIDOrder Info: [id number] - TSHOrder Info: [id number] - PSA Result Comment: This test was performed using the [employer] tPSAmethod. Measured values of a patient??sample can varydepending on the testing procedure used. PSA valuesdetermined on patient samples by different testingprocedures cannot be used interchangeably. If there is achange in PSA assays while monitoring therapy, sequentialtesting should be performed to confirm baseline values. Performed By: #### L 501.9520, L501.9985, L500.4100, L100.0100, L501.9910, L500.4050 ####[facility] [address] [place], [address] Platelet countOrdered By: Daniel Rothman on 12-06-2024 Platelets (Bld) [#/Vol] 221 10*3/uL 150-450 [facility] Potassium measurement (mass/ volume)Ordered By: Monroe Rothman on 12-06-2024 Potassium (Unsp spec) [Mass/Vol] 3.7 mmol/L 3.3-5.1 [facility] RBC Auto (Bld) [#/Vol]Ordere d By: Monroe Rothman on 12-06-2024 RBC (Bld) [#/Vol] 4.07 10*6/uL Low 4.6-6.2 [facility] Screening total cholesterol/ high density lipoprotein (HDL) cholesterol ratioOrdered By: Monroe Rothman on 12-06-2024 Cholesterol.total/Shannan sterol in HDL [Mass ratio] 7.26 {ratio} [facility] Serum creatinine measurement (mass/volume)Ordered By: Monroe Rothman on 12-06-2024 Creatinine [Mass/Vol] 1.76 mg/dL High 0.70-1.20 [facility] Serum globulin measurementOr dered By: Monroe Rothman on 12-06-2024 Globulin (S) [Mass/Vol] 2.6 g/dL 2.2-4.2 [facility] Serum glucose measurement (m ass/volume)Ordered By: Monroe Rothman on 12-06-2024 Glucose [Mass/Vol] 94 mg/dL 70-99 [facility] Serum or plasma alanine stephens otransferase (ALT) measurementOrdered By: Monroe Rothman on 12-06-2024 ALT [Catalytic activity/Vol] 14 U/L <47 [facility] Serum or plasma albumin milagros urement (mass/volume)Ordered By: Monroe Rothman on 12-06-2024 Albumin [Mass/Vol] 4.1 g/dL 3.5-5.0 [facility] Serum or plasma albumin/glob ulin mass ratioOrdered By: Monroe Rothman on 12-06-2024 Albumin/Globulin [Mass ratio] 1.6 {ratio} 0.9-2.4 [facility] Serum or plasma alkaline melissa sphatase measurementOrdered By: Monroe Rothman on 12-06-2024 ALP [Catalytic activity/Vol] 95 U/L 40-129 [facility] Serum or plasma calcium milagros urement (mass/volume)Ordered By: Monroe Rothman on 12-06-2024 Calcium [Mass/Vol] 8.7 mg/dL 7.6-11.0 [facility] Serum or plasma cholesterol in HDL measurement (mass/volume)Ordered By: Monroe Rothman on 12-06-2024 Cholesterol in HDL [Mass/Vol] 24 mg/dL Low >40 [facility] Comment on above: National Cholesterol Education Program (NCEP) guidelines:<40 mg/dL: Low HDL-cholesterol (major risk factor for CHD)>= 60 mg/dL: High HDL-cholesterol (negative risk factor for CHD)HDL-cholesterol is affected by a number of factors, e.g. smoking, exercise, hormones, sex and age. Serum or plasma cholesterol measurement (mass/volume)Ordered By: Monroe Rothman on 12-06-2024 Cholesterol [Mass/Vol] 172 mg/dL <201 [facility] Comment on above: Cholesterol level, D esirable <200 mg/dLBorderline high cholesterol 200-239 mg/dLHigh cholesterol >=240 mg/dLRecommendations of the NCEP Adult Treatment Panel for the following risk-cutoff thresholds for the [place] population. Serum or plasma urea nitroge n measurement (mass/volume)Ordered By: Monroe Rothman on 12-06-2024 Urea nitrogen [Mass/Vol] 26 mg/dL High 4-19 [facility] Sodium levelOrdered By: Kristen Rothman on 12-06-2024 Sodium [Moles/Vol] 141 mmol/L 133-145 [facility] TSH DL <= 0.005 mIU/L QnOrde red By: Monroe Rothman on 12-06-2024 TSH Qn 2.680 uIU/mL 0.300-4.200 [facility] Thyroid Stim Hormone (TSH)on 12-06-2024 TSH 2.680 uIU/mL Normal 0.300-4.200 [facility] Comment on above: Order Comment: Order Date: 12/06/24Order Info: [id number] CMPOrder Info: [id number] - LIPIDOrder Info: [id number] - TSHOrder Info: [id number] - PSA Performed By: #### L 501.9520, L501.9985, L500.4100, L100.0100, L501.9910, L500.4050 ####[facility] [address] [place], [place], [address] Total proteinOrdered By: Sherrill Rothman on 12-06-2024 Protein [Mass/Vol] 6.6 g/dL 5.9-8.4 [facility] Triglycerides measurementOrd ered By: Monroe Rothman on 12-06-2024 Triglyceride [Mass/Vol] 220 mg/dL High <199 [facility] Comment on above: The drugs N-Acetylcy steine and Metamizole may falsely depress this assay. Normal range: <150 mg/dLBorderline High: 150-199 mg/dLHigh: 200-499 mg/dLVery High: >500 mg/dL Vitamin D,25 Hydroxyon 12-06 Vitamin D 25-OH 12.5 ng/mL Low 30-100 [facility] Comment on above: Order Comment: Order Date: 12/06/24Order Info: [id number] - CMPOrder Info: [id number] - LIPIDOrder Info: [id number] - TSHOrder Info: [id number] - PSA Result Comment: Ilana min D StatusDeficiency: <20 ng/mL (50nmol/L)Insufficiency: 20-30 ng/mL (50-75 nmol/L)Sufficiency: 30-100 ng/mL (75-250 nmol/L)Toxicity: >100 ng/mL (>250 nmol/L) Performed By: #### L 506.1001 ####[facility] [address] [place], [address] White blood cell (WBC) count Ordered By: Monroe Rothman on 12-06-2024 WBC (Bld) [#/Vol] 5.8 10*3/uL 4.4-11.0 [facility] Basophil percentageOrdered B y: Rosa Steinberg on 12-03-2022 Bilirubin [Mass/Vol] 0.40 mg/dL 0.20-1.00 [facility] Comment on above: For patients on eltr ombopag therapy, use of Dimension [place] TBIL is not recommended. Chloride [Moles/Vol] 105 mmol/L 98-107 [facility] Cholesterol [Mass/Vol] 200 mg/dL <200 [facility] Comment on above: <200 mg/dL Desirable 200-240 mg/dL Borderline >240 mg/dL High Risk Glucose [Mass/Vol] 109 mg/dL 74-106 [facility] Comment on above: Fasting Glucose resu lt from 100 to 125 mg/dL suggests IMPAIRED HOMEOSTASIS per A.D.A. criteria. Potassium [Moles/Vol] 4.5 mmol/L 3.5-5.1 [facility] Protein [Mass/Vol] 7.5 g/dL 6.4-8.2 [facility] Sodium [Moles/Vol] 137 mmol/L 136-145 [facility] Triglyceride [Mass/Vol] 255 mg/dL <199 [facility] Comment on above: The drugs N-Acetylcy steine and Metamizole may falsely depress this assay.Serum Triglycerides Reference Interval Normal <150 mg/dL Borderline high 150 - 199 mg/dL High 200 - 499 mg/dL Very High > or = 500 mg/dL Laboratory - Chemistry and C hemistry - challengeOrdered By: Rosa Steinberg on 12-03-2022 ALP [Catalytic activity/Vol] 96 U/L 45-117 [facility] ALT [Catalytic activity/Vol] 30 U/L 16-61 [facility] CO2 [Moles/Vol] 26.0 mmol/L 21.0-32.0 [facility] Globulin (S) [Mass/Vol] 3.7 g/dL 2.2-4.2 [facility] Urea nitrogen/Creatinine [Mass ratio] 18.0 mg/mg 10-20 [facility] No Panel InformationOrdered By: Rosa Steinberg on 12-03-2022 Estimated GFR (MDRD) Amer 106 mL/min >60 [facility] Comment on above: GFR Calc Estimated GFR (MDRD) Non-Af Amer 88 mL/min >60 [facility] Comment on above: Non- GFR Calc Prostate Specific Antigen Screen 0.87 ng/mL 0.00-4.00 [facility] Comment on above: This test was perfor med using the TPSA assay method for [employer] chemistry system. Values obtained with differentassay methods cannot be used interchangably.When changing PSA assays in the course of monitoring apatient, additional sequential testing should be carriedout to confirm baseline values. Thyroid Stimulating Hormone (TSH) 1.99 uIU/mL 0.358-3.74 [facility] Serum or plasma albumin milagros urement (mass/volume)Ordered By: Rosa Steinberg on 12-03-2022 Albumin [Mass/Vol] 3.8 g/dL 3.2-5.0 [facility] Serum or plasma albumin/glob ulin mass ratioOrdered By: Rosa Steinberg on 12-03-2022 Albumin/Globulin [Mass ratio] 1.0 {ratio} 0.9-2.4 [facility] Serum or plasma calcium milagros urement (mass/volume)Ordered By: Rosa Steinberg on 12-03-2022 Calcium [Mass/Vol] 9.0 mg/dL 8.5-10.1 [facility] Serum or plasma cholesterol in HDL measurement (mass/volume)Ordered By: Rosa Steinberg on 12-03-2022 Cholesterol in HDL [Mass/Vol] 27 mg/dL >40 [facility] Comment on above: The drugs N-Acetylcy steine and Metamizole may falsely depress this assay. Reference Range HDL <40 mg/dL Low HDL Cholesterol HDL >or= 60 mg/dL High HDL Cholesterol Serum or plasma cholesterol in VLDL measurement (mass/volume)Ordered By: Rosa Steinberg on 12-03-2022 Cholesterol in VLDL [Mass/Vol] 51 mg/dL 5-40 [facility] Serum or plasma creatinine m easurement (mass/volume)Ordered By: Rosa Steinberg on 12-03-2022 Creatinine [Mass/Vol] 0.95 mg/dL 0.70-1.30 [facility] Comment on above: The validity of the calculated GFR & GFRAA in patients over 70 years has not been determined. Clinical correlation is essential. Serum or plasma low density lipoprotein (LDL) cholesterol measurement (mass/volume)Ordered By: Rosa Steinberg on 12-03-2022 Cholesterol in LDL [Mass/Vol] 122 mg/dL 0-130 [facility] Serum or plasma urea nitroge n measurement (mass/volume)Ordered By: Rosa Steinberg on 12-03-2022 Urea nitrogen [Mass/Vol] 17 mg/dL 7-18 [facility] Thin prep Papanicolaou smear with manual screeningOrdered By: Rosa Steinberg on 12-03-2022 Thin prep Papanicolaou smear with manual screening 13 U/L 15-37 [facility] Thin prep Papanicolaou smear with manual screening 6 5-15 [facility] Thin prep Papanicolaou smear with manual screening 13.8 mg/L NO RANGE EST. [facility] Whole blood hemoglobin A1c/t otal hemoglobin ratio (mass fraction)Ordered By: Rosa Steinberg on 12-03-2022 HbA1c (Bld) [Mass fraction] 5.6 % 3.8-5.6 [facility] Comment on above: Normal < 5.7 % Predi abetic 5.7 - 6.4 % Diabetic >or= 6.5 % Please note range changes. Vital Signs Date Time Vital Sign Value Performing Clinician Yasiri mery 11-17-2022 07:59-0400 Body height 182.[address] Adal SMITH Work Phone: [facility] 11-17-2022 07:59-0400 Body mass index (BMI) [Ratio] 34.8 kg/m2 Dr. Adal SMITH Work Phone: [facility] 11-17-2022 07:59-0400 Body temperature 96 [degF] Dr. Adal SMITH Work Phone: [facility] 04-24-2023 07:59-0400 Body weight 116.[address] Adal SMITH Work Phone: [facility] 11-17-2022 07:59-0400 Diastolic blood pressure 81 mm[Hg] Dr. Adal SMITH Work Phone: [facility] 11-17-2022 07:59-0400 Heart rate 60 /min Dr. Adal SMITH Work Phone: [facility] 11-17-2022 07:59-0400 Respiratory rate 17 /min Dr. Adal SMITH Work Phone: [facility] 11-17-2022 07:59-0400 SaO2% (BldA) [Mass fraction] 95 % Dr. Adal SMITH Work Phone: [facility] 11-17-2022 07:59-0400 Systolic blood pressure 147 mm[Hg] Dr. Adal SMITH Work Phone: [facility] Encounters Encounter Date Encounter Type Care Provider Facility Start: 05-15-2025 ambulatory Juan Torres Facili ty:[facility] Start: 05-14-2025 ambulatory Juan Torres Facili ty:[facility] Start: 05-13-2025 ambulatory Juan Torres Facili ty:[facility] Start: 05-12-2025 ambulatory Juan Torres Facili ty:[facility] Start: 05-11-2025 ambulatory Juan Torres Facili ty:[facility] Start: 05-04-2025 ambulatory Jani Tello Fac ility:[facility] Start: 05-04-2025 End: 05-10-2025 Evaluation and management of inpatient Jani Tello Facility:[facility] Start: 01-23-2025 End: 01-23-2025 ambulatory Monroe Rothman MD Work Phone: [facility] Start: 01-23-2025 End: 01-23-[address] Monroe Rothman MD [facility] Work Phone: Start: 01-23-2025 End: 01-23-2025 ambulatory Monroe Rothman Facility:[facility] Start: 12-09-2024 Encounter for genera l adult medical examination without abnormal findings Monroe Rothman [facility] Start: 12-06-2024 End: 12-06-2024 ambulatory Monroe Rothman MD Work Phone: [facility] Work Phone: Start: 12-06-2024 End: 12-06-[address] Monroe Rothman MD [facility] Work Phone: Start: 12-06-2024 End: 12-06-2024 ambulatory Monroe Rothman Facility:[facility] Start: 12-03-2022 End: 12-03-[address] Adal SMITH Work Phone: [facility] Work Phone: Start: 12-03-2022 End: 12-03-[address] Adal SMITH Work Phone: [facility] Start: 11-19-2022 End: 11-19-[address] Adal SMITH Work Phone: [facility] Start: 11-17-2022 End: 11-17-[address] Adal SMITH Work Phone: [facility] Procedures Date Procedure Procedure Detail Performing Clinician Start: 01-23-2025 Plain x-ray of elbow Ch zeferino Rothman MD Work Phone: Start: 12-06-2024 Prostate specific an tigen measurement [...] nmol/L) Payers Date Payer Category Payer Self-pay [id number] 2024 Unknown [id number] Unknown [id number] Unknown [id number] 2.16.8 [id number] Unknown [id number] 2.16.8 [id number] Unknown [id number] 2.16.8 [id number] Unknown [id number] 2.16.8 [id number] Unknown [id number] 2.16.8 40.1.331011.3.579.2.462 Unknown [id number] 2.16.8 40.1.377510.3.579.2.462 Unknown [id number] 2.16.8 40.1.254135.3.579.2.462 Unknown [id number] 2.16.8 40.1.388389.3.579.2.462 Unknown [id number] 2.16.8 40.1.136833.3.579.2.462 Unknown [id number] 2.16.8 40.1.350264.3.579.2.462 Unknown [id number] 2.16.8 40.1.671050.3.579.2.462 Unknown [id number] 2.16.8 40.1.897471.3.579.2.462 Unknown [id number] 2.16.8 40.1.704995.3.579.2.462 Unknown [id number] 2.16.8 40.1.681528.3.579.2.462 Unknown [id number] 2.16.8 40.1.496465.3.579.2.462 Social History Date Type Detail Facility Start: 11-19-2022 Tobacco smoking stat [facility] Unknown if ever smoked [facility] Start: 1965 Sex Assigned At Male [facility] Start: 11-19-2022 [facility] Microscopic observation Gram stain Nom (Unsp spec) 05-05-2025 Note Date & Type Note Facility 05-05-2025 Note Acceptable Specimen? Acceptable Specimen(Evaluation not needed) Gram Stain 2+ Gram positive cocci 1+ Gram positive rods 2+ White Blood Cells No Epithelial cells [facility] Comment on above: Performed By: #### M 100.2400, M100.1999 ####[facility] [address] [facility] [place], [place], [address] Radiology Diagnostic study note 01-23-2025 Note Date & Type Note Facility 01-23-2025 Radiology Diagnostic study note [facility] Imaging Services [address] [place], [place] [address] Elbow min 3 Views MR#: [id number] Acct: [id number] Name: NOAH DOMINGUEZ Rep #: [id number] : 1965 M 59 From: Shawn Lipscomb MD PCP: Dr. Monroe Rothman MD Status: REG CL I Study:Elbow min 3 Views Date of Exam: Exam# [id number] Ordering Dr: Sherrill Rothman MD PROCEDURE: ELBOW MIN 3 VIEWS 01/23/2025 REASON FOR EXAM: SWELLING WITH CELLULITIS TECHNIQUE: ELBOW MIN 4 VIEWS COMPARISON: None FINDINGS: Bones: No fracture or suspicious osseous lesion Joints: Normal alignment. Soft tissues: Diffuse nonspecific soft tissue swelling Other: RAD/Elbow min 3 Views IMPRESSION: No fracture or suspicious osseous lesion Joint spaces well-preserved Nonspecific soft tissue swelling Reading Location: [id number] CC: Dr. Monroe Rothman MD ~ Logistics Specialist: Signed [facility] Evaluation note Note Date & Type Note Facility Evaluation note Diagnosis Onset Date Epidermal cyst of neck acute Neck pain acute Epidermal cyst of neck acute Neck pain acute [facility] Work Phone: Evaluation note Note Date & Type Note Facility Evaluation note No assessment information availa ble [facility] Work Phone: Reason for referral (narrative) Note Date & Type Note Facility Reason for referral (narrative) No reason for referral information available [facility] Work Phone: Chief Complaint and Reason for Visit Chief Complaint CYST ON NECK CYST ON NECK Reason for Visit Epidermal cyst of ne ck Neck pain Epidermal cyst of neck Neck pain Chief Complaint Admit Date EORDER December 06, 2024 4:19p m Chief Complaint Admit Date EORDER December 06, 2024 4:19p m swelling with cellulitis-RIGHT ELBOW Anthony e 2024 9:26am Summary Purpose Family History No Family History [...] December 06, 2024 End: December 06, 2024 Team Status: Active Member Role/Relationship Status Dates Dr. Adal Mora MD Family Provider Active Monroe Rothman MD Primary Care Provider Active Team Status: Inactive Member Role/Relationship Status Dates Monroe Rothman MD Primary Care Provider Active St art: December 06, 2024 End: December 06, 2024 Monroe Rothman MD Attending Provider Active Start : December 06, 2024 End: December 06, 2024 Monroe Rothman MD Referring Provider Active Start : December 06, 2024 End: December 06, 2024 Team Status: Inactive Member Role/Relationship Status Dates Monroe Rothman MD Primary Care Provider Active St art: January 23, 2025 End: January 23, 2025 Monroe Rothman MD Attending Provider Active Start : January 23, 2025 End: January 23, 2025 Monroe Rothman MD Referring Provider Active Start : January 23, 2025 End: January 23, 2025 Goals (unrecognized section and content) Goals may be documented in a n alternate sectionGoals may be documented in an alternate sectionGoals may be documented in an alternate section (unrecognized sect ion and content) No Status Records Found INFORMATION SOURCE (unrecogn ized section and content) DATE CREATED AUTHOR 05/11/2025 [facility] FOR RECORDS PERTAINING TO PATIENTS WHO ARE [...] BE BASED ON THE PRIMARY CLINICAL RECORDS. [facility] [employer] provides no warranty or guarantee of the accuracy or completeness of information in this document.
--- OUTSIDE RECORDS SUMMARY | 2025-05-13 11:41 | XMS RPT_ITS | CCD ---
Author Organization [facility] Care Team Providers Care Strategic Analyst Name Role Phone Dr. Adal Zee Primary Care Provider Dr. Adla Zee Referring Provider Dr. Wilber Patrick Attending Provider [phone] Lorna SAWANT, [place] Primary Care Provider [place] Rothman MD Attending Provider [phone] Lorna SAWANT, [place] Referring Provider Juan [...] Frank Consulting UnavailAndrea Dial Consulting Unavailable Baldomero [employer]e [employer] Unavailable Peter Zavala Consulting UnavailSky Mirza [...] (3 sources) Citalopram Drug Allergy 3 Other [facility] Comment on above: headaches (3 sources) Sulfonamides (Antibiotic) Allergy to substance 3 unknown [facility] (1 source) Citalopram Drug Allergy 5 [facility] Repository (1 source) Sulfonamides (Antibiotic) Drug allergy (disorder) 5 [facility] Repository Medications Current Medications Medication Drug Class(es) Dates Sig (Normalized) Sig (Original) [id number] 200 actuat albuterol 0.09 mg/actuat metered dose [...] 05-10-2025 FINGERSTICK GLU 156 mg/dL High 74-106 [facility] Comment on above: Result Comment: KIANA GEMENT OF PATIENT CARE PER NURSING PROTOCOL Performed By: #### L 501.080 ####[facility] [address] [place], [address] FINGERSTICK GLU 108 mg/dL High 74-106 [facility] Comment on above: Result Comment: KIANA GEMENT OF PATIENT CARE PER NURSING PROTOCOL Performed By: #### L 501.080 ####[facility] [address] [place], [address] Discharge Instructionon 04-26 Discharge Instruction Normal [facility] Renal Profileon 05-10-2025 Albumin [Mass/Vol] 2.7 g/dL Low 3.5-5.0 [facility] Comment on above: Performed By: #### L 500.3600 ####[facility] [address] [place], [address] BUN/CRE 21.3 RATIO High -20 [facility] Comment on above: Performed By: #### L 500.3600 ####[facility] [address] [place], [address] Calcium [Mass/Vol] 7.7 mg/dL Normal 7.6-11.0 [facility] Comment on above: Performed By: #### L 500.3600 ####[facility] [address] [place], [address] Chloride [Moles/Vol] 104 mmol/L Normal 98-108 [facility] Comment on above: Performed By: #### L 500.3600 ####[facility] [address] [place], [address] CO2 [Moles/Vol] 21.2 mmol/L Normal 21.0-32.0 [facility] Comment on above: Performed By: #### L 500.3600 ####[facility] [address] [place], [address] Creatinine [Mass/Vol] 2.96 mg/dL High 0.70-1.20 [facility] Comment on above: Performed By: #### L 500.3600 ####[facility] [address] [place], [address] ECRCL 35.15 ml/min Low 50-250 [facility] Comment on above: Performed By: #### L 500.3600 ####[facility] [address] [place], [address] GAP 12 Normal 5-15 [facility] Comment on above: Performed By: #### L 500.3600 ####[facility] [address] [place], [address] GFR/1.73 sq M.predicted among non-blacks MDRD (S/P/Bld) [Vol rate/Area] 24 mL/min/{1.73_m2} Low >60 [facility] Comment on above: Result Comment: mL/m in/1.73m2 CKD-EPI Creatinine Equation (2020) Performed By: #### L 500.3600 ####[facility] [address] [place], [address] Glucose [Mass/Vol] 119 mg/dL High 70-99 [facility] Comment on above: Performed By: #### L 500.3600 ####[facility] [address] [place], [address] Phosphate [Mass/Vol] 5.2 mg/dL High 2.7-4.5 [facility] Comment on above: Performed By: #### L 500.3600 ####[facility] [address] [place], [address] Potassium [Moles/Vol] 3.5 mmol/L Normal 3.3-5.1 [facility] Comment on above: Performed By: #### L 500.3600 ####[facility] [address] [place], [address] Sodium [Moles/Vol] 137 mmol/L Normal 133-145 [facility] Comment on above: Performed By: #### L 500.3600 ####[facility] [address] [place], [address] Urea nitrogen [Mass/Vol] 63 mg/dL High 4-19 [facility] Comment on above: Performed By: #### L 500.3600 ####[facility] [address] [place], [address] ANCAon 05-09-2025 Atypical pANCA <1:20 Normal Neg:<1:20 [facility] Comment on above: Result Comment: The atypical pANCA pattern has been observed in asignificant percentage of patients with ulcerative colitis,primary sclerosing cholangitis and autoimmune hepatitis. Performed By: #### L 3100.3450, L3400.4200, L3100.5700, L3300.1200, L3100.5800 ####[facility] [address] [place], [address] Cytoplasmic Ab <1:20 Normal Neg:<1:20 [facility] Comment on above: Performed By: #### L 3100.3450, L3400.4200, L3100.5700, L3300.1200, L3100.5800 ####[facility] [address] [place], [address] Perinuclear Ab. <1:20 Normal Neg:<1:20 [facility] Comment on above: Result Comment: The presence of positive fluorescence exhibiting P-ANCA orC-ANCA patterns alone is not specific for the diagnosis ofWegener's Granulomatosis (WG) or microscopic polyangiitis.Decisions about treatment should not be based solely onANCA IFA results. The International ANCA Group Consensusrecommends follow up testing of positive sera with both OH-3 and MPO-ANCA enzyme immunoassays. As many as 5% serumsamples are positive only by EIA. Ref. AM J Clin Ccqfee0445;111:507-513. Performed By: #### L 3100.3450, L3400.4200, L3100.5700, L3300.1200, L3100.5800 ####[facility] [address] [place], [address] Anti-Glomerular Basement Mem bon 05-09-2025 ANTI-GLOM BM Ab < 0.2 Normal 0.0-0.9 [facility] Comment on above: Result Comment: Perf ormed at: - [facility] [address] [id number] Director: Compa Abdullahi PhD, Phone: [phone] at: [facility] [address] [id number] Director: Gautam Hager MD, Phone: [phone] Performed By: #### L 3100.3450, L3400.4200, L3100.5700, L3300.1200, L3100.5800 ####[facility] [address] [place], [address] Basic Metabolic Profile (BMP )on 05-09-2025 BUN/CRE 18.9 RATIO Normal 05-15 [facility] Comment on above: Performed By: #### L 100.0100, L500.2500 ####[facility] [address] [place], [address] Calcium [Mass/Vol] 7.6 mg/dL Normal 7.6-11.0 [facility] Comment on above: Performed By: #### L 100.0100, L500.2500 ####[facility] [address] [place], [address] Chloride [Moles/Vol] 103 mmol/L Normal 98-108 [facility] Comment on above: Performed By: #### L 100.0100, L500.2500 ####[facility] [address] [place], [address] CO2 [Moles/Vol] 20.4 mmol/L Low 21.0-32.0 [facility] Comment on above: Performed By: #### L 100.0100, L500.2500 ####[facility] [address] [place], [address] Creatinine [Mass/Vol] 3.09 mg/dL High 0.70-1.20 [facility] Comment on above: Performed By: #### L 100.0100, L500.2500 ####[facility] [address] [place], [address] ECRCL 33.55 ml/min Low 50-250 [facility] Comment on above: Performed By: #### L 100.0100, L500.2500 ####[facility] [address] [place], [address] GAP 14 Normal 5-15 [facility] Comment on above: Performed By: #### L 100.0100, L500.2500 ####[facility] [address] [place], [address] GFR/1.73 sq M.predicted among non-blacks MDRD (S/P/Bld) [Vol rate/Area] 23 mL/min/{1.73_m2} Low >60 [facility] Comment on above: Result Comment: mL/m in/1.73m2 CKD-EPI Creatinine Equation (2020) Performed By: #### L 100.0100, L500.2500 ####[facility] [address] [place], [address] Glucose [Mass/Vol] 118 mg/dL High 70-99 [facility] Comment on above: Performed By: #### L 100.0100, L500.2500 ####[facility] [address] [place], [address] Potassium [Moles/Vol] 3.3 mmol/L Normal 3.3-5.1 [facility] Comment on above: Performed By: #### L 100.0100, L500.2500 ####[facility] [address] [place], [address] Sodium [Moles/Vol] 137 mmol/L Normal 133-145 [facility] Comment on above: Performed By: #### L 100.0100, L500.2500 ####[facility] [address] [place], [address] Urea nitrogen [Mass/Vol] 58 mg/dL High 4-19 [facility] Comment on above: Performed By: #### L 100.0100, L500.2500 ####[facility] [address] [place], [address] Bedside Glucoseon 05-09-2025 FINGERSTICK GLU 120 mg/dL High 74-106 [facility] Comment on above: Result Comment: KIANA GEMENT OF PATIENT CARE PER NURSING PROTOCOL Performed By: #### L 501.080 ####[facility] [address] [place], [address] FINGERSTICK GLU 123 mg/dL High 74-106 [facility] Comment on above: Result Comment: KIANA GEMENT OF PATIENT CARE PER NURSING PROTOCOL Performed By: #### L 501.080 ####[facility] [address] [place], [address] FINGERSTICK GLU 116 mg/dL High 74-106 [facility] Comment on above: Result Comment: KIANA GEMENT OF PATIENT CARE PER NURSING PROTOCOL Performed By: #### L 501.080 ####[facility] [address] [place], [address] FINGERSTICK GLU 111 mg/dL High 74-106 [facility] Comment on above: Result Comment: KIANA GEMENT OF PATIENT CARE PER NURSING PROTOCOL Performed By: #### L 501.080 ####[facility] [address] [place], [address] FINGERSTICK GLU 103 mg/dL Normal 74-106 [facility] Comment on above: Result Comment: KIANA GEMENT OF PATIENT CARE PER NURSING PROTOCOL Performed By: #### L 501.080 ####[facility] [address] [place], [address] FINGERSTICK GLU 93 mg/dL Normal 74-106 [facility] Comment on above: Result Comment: KIANA GEMENT OF PATIENT CARE PER NURSING PROTOCOL Performed By: #### L 501.080 ####[facility] [address] [place], [address] CBC W/Diff, Automatedon 10- Absolute Lymph 0.95 X10 3/uL Normal 0.83-4.51 [facility] Comment on above: Performed By: #### L 100.0100, L500.2500 ####[facility] [address] [place], [address] Absolute Neut 9.2 X10 3/uL High 2.0-7.7 [facility] Comment on above: Performed By: #### L 100.0100, L500.2500 ####[facility] [address] [place], [address] Basophils/100 WBC (Bld) 0.3 % Normal 0-1 [facility] Comment on above: Performed By: #### L 100.0100, L500.2500 ####[facility] [address] [place], [address] Eosinophils/100 WBC (Bld) 0.0 % Normal 0-5 [facility] Comment on above: Performed By: #### L 100.0100, L500.2500 ####[facility] [address] [place], [address] Erythrocyte distribution width (RBC) [Ratio] 14.9 % High 11.6-14.6 [facility] Comment on above: Performed By: #### L 100.0100, L500.2500 ####[facility] [address] [place], [address] Hematocrit (Bld) [Volume fraction] 28.4 % Low 40-54 [facility] Comment on above: Performed By: #### L 100.0100, L500.2500 ####[facility] [address] [place], [address] Hemoglobin (Bld) [Mass/Vol] 9.5 g/dL Low 13.0-16.5 [facility] Comment on above: Performed By: #### L 100.0100, L500.2500 ####[facility] [address] [place], [address] IG% 3.300 High 0.0-0.9 [facility] Comment on above: Result Comment: IG% - Immature Granulocytes (promyelocytes, myelocytes andmetamyelocytes) > 1% indicates that a LEFT SHIFT is Present. Performed By: #### L 100.0100, L500.2500 ####[facility] [address] [place], [address] Lymphocytes/100 WBC (Bld) 8.5 % Low 19-41 [facility] Comment on above: Performed By: #### L 100.0100, L500.2500 ####[facility] [address] [place], [address] MCH (RBC) [Entitic mass] 27.4 pg Normal 27.0-32.0 [facility] Comment on above: Performed By: #### L 100.0100, L500.2500 ####[facility] [address] [place], [address] MCHC (RBC) [Mass/Vol] 33.5 g/dL Normal 32-36 [facility] Comment on above: Performed By: #### L 100.0100, L500.2500 ####[facility] [address] [place], [address] MCV (RBC) [Entitic vol] 81.8 fL Normal 80-94 [facility] Comment on above: Performed By: #### L 100.0100, L500.2500 ####[facility] [address] [place], [address] Monocytes/100 WBC (Bld) 5.4 % Normal 0-10 [facility] Comment on above: Performed By: #### L 100.0100, L500.2500 ####[facility] [address] [place], [address] Neutrophils/100 WBC (Bld) 82.5 % High 47-70 [facility] Comment on above: Performed By: #### L 100.0100, L500.2500 ####[facility] [address] [place], [address] Nucleated RBC (Bld) [#/Vol] 0 10*3/uL Normal 0-5 [facility] Comment on above: Performed By: #### L 100.0100, L500.2500 ####[facility] [address] [place], [address] Platelet mean volume (Bld) [Entitic vol] 11.1 fL Normal 6.2-12.0 [facility] Comment on above: Performed By: #### L 100.0100, L500.2500 ####[facility] [address] [place], [address] Platelets (Bld) [#/Vol] 157 10*3/uL Normal 150-450 [facility] Comment on above: Performed By: #### L 100.0100, L500.2500 ####[facility] [address] [place], [address] RBC (Bld) [#/Vol] 3.47 10*6/uL Low 4.6-6.2 [facility] Comment on above: Performed By: #### L 100.0100, L500.2500 ####[facility] [address] [place], [address] RDW SD 44.3 fl High 35.1-43.9 [facility] Comment on above: Performed By: #### L 100.0100, L500.2500 ####[facility] [address] [place], [address] WBC (Bld) [#/Vol] 11.2 10*3/uL High 4.4-11.0 [facility] Comment on above: Performed By: #### L 100.0100, L500.2500 ####[facility] [address] [place], [address] Complement C3on 05-09-2025 COMP C3 86 mg/dL Normal 82-167 [facility] Comment on above: Performed By: #### L 3100.3450, L3400.4200, L3100.5700, L3300.1200, L3100.5800 ####[facility] [address] [place], [address] Complement C4on 05-09-2025 COMPLEMENT, C4 25 mg/dL Normal 12-38 [facility] Comment on above: Performed By: #### L 3100.3450, L3400.4200, L3100.5700, L3300.1200, L3100.5800 ####[facility] [address] [place], [address] Protein Electroph, Son 05-09 Albumin [Mass/Vol] 2.0 g/dL Low 2.9-4.4 [facility] Comment on above: Performed By: #### L 3100.3450, L3400.4200, L3100.5700, L3300.1200, L3100.5800 ####[facility] [address] [place], [address] Albumin/Globulin [Mass ratio] 0.7 {ratio} Normal 0.7-1.7 [facility] Comment on above: Performed By: #### L 3100.3450, L3400.4200, L3100.5700, L3300.1200, L3100.5800 ####[facility] [address] [place], [address] ALPHA-1 GLOBUL 0.4 g/dL Normal 0.0-0.4 [facility] Comment on above: Performed By: #### L 3100.3450, L3400.4200, L3100.5700, L3300.1200, L3100.5800 ####[facility] [address] [place], [address] ALPHA-2 GLOBUL 0.9 g/dL Normal 0.4-1.0 [facility] Comment on above: Performed By: #### L 3100.3450, L3400.4200, L3100.5700, L3300.1200, L3100.5800 ####[facility] [address] [place], [address] BETA GLOBULIN 0.5 g/dL Low 0.7-1.3 [facility] Comment on above: Performed By: #### L 3100.3450, L3400.4200, L3100.5700, L3300.1200, L3100.5800 ####[facility] [address] [place], [address] GAMMA GLOBULIN 1.0 g/dL Normal 0.4-1.8 [facility] Comment on above: Performed By: #### L 3100.3450, L3400.4200, L3100.5700, L3300.1200, L3100.5800 ####[facility] [address] [place], [address] Globulin (S) [Mass/Vol] 2.8 g/dL Normal 2.2-3.9 [facility] Comment on above: Performed By: #### L 3100.3450, L3400.4200, L3100.5700, L3300.1200, L3100.5800 ####[facility] [address] [place], [place], [address] INTERPRETATION Comment Normal . [facility] Comment on above: Result Comment: Prot ein electrophoresis scan will follow via computer,mail, or television antenna installer delivery. Performed By: #### L 3100.3450, L3400.4200, L3100.5700, L3300.1200, L3100.5800 ####[facility] [address] [place], [address] M-SPIKE Comment: Normal Not Observed [facility] Comment on above: Result Comment: SPE shows an asymmetrical gamma. Performed By: #### L 3100.3450, L3400.4200, L3100.5700, L3300.1200, L3100.5800 ####[facility] [address] [place], [place], [address] NOTE: Comment Normal . [facility] Comment on above: Result Comment: Elliot t band in gamma region suspicious for monoclonalimmunoglobulin. This band may represent a benign spike asseen in older people or could be a paraprotein as seen inMultiple Myeloma, Waldenstrom's Macroglobulinemia orLymphoma. Depending on clinical circumstances, furtherdiagnostic studies may include serum immunofixation orserum free light chain quantitation. Performed By: #### L 3100.3450, L3400.4200, L3100.5700, L3300.1200, L3100.5800 ####[facility] [address] [place], [address] Protein [Mass/Vol] 4.8 g/dL Low 6.0-8.5 [facility] Comment on above: Performed By: #### L 3100.3450, L3400.4200, L3100.5700, L3300.1200, L3100.5800 ####[facility] [address] [place], [address] Bedside Glucoseon 05-08-2025 FINGERSTICK GLU 107 mg/dL High 74-106 [facility] Comment on above: Result Comment: KIANA GEMENT OF PATIENT CARE PER NURSING PROTOCOL Performed By: #### L 501.080 ####[facility] [address] [place], [address] FINGERSTICK GLU 130 mg/dL High 74-106 [facility] Comment on above: Result Comment: KIANA GEMENT OF PATIENT CARE PER NURSING PROTOCOL Performed By: #### L 501.080 ####[facility] [address] [place], [address] FINGERSTICK GLU 106 mg/dL Normal 74-106 [facility] Comment on above: Result Comment: KIANA GEMENT OF PATIENT CARE PER NURSING PROTOCOL Performed By: #### L 501.080 ####[facility] [address] [place], [address] CBC W/Diff, Automatedon 04-26 Absolute Lymph 0.67 X10 3/uL Low 0.83-4.51 [facility] Comment on above: Performed By: #### L 100.0100, L500.4050 ####[facility] [address] [place], [address] Absolute Neut 7.8 X10 3/uL High 2.0-7.7 [facility] Comment on above: Performed By: #### L 100.0100, L500.4050 ####[facility] [address] [place], [address] Basophils/100 WBC (Bld) 0.1 % Normal 0-1 [facility] Comment on above: Performed By: #### L 100.0100, L500.4050 ####[facility] [address] [place], [address] Eosinophils/100 WBC (Bld) 0.0 % Normal 0-5 [facility] Comment on above: Performed By: #### L 100.0100, L500.4050 ####[facility] [address] [place], [address] Erythrocyte distribution width (RBC) [Ratio] 15.6 % High 11.6-14.6 [facility] Comment on above: Performed By: #### L 100.0100, L500.4050 ####[facility] [address] [place], [address] Hematocrit (Bld) [Volume fraction] 24.4 % Low 40-54 [facility] Comment on above: Performed By: #### L 100.0100, L500.4050 ####[facility] [address] [place], [address] Hemoglobin (Bld) [Mass/Vol] 8.3 g/dL Low 13.0-16.5 [facility] Comment on above: Performed By: #### L 100.0100, L500.4050 ####[facility] [address] [place], [address] IG% 1.800 High 0.0-0.9 [facility] Comment on above: Result Comment: IG% - Immature Granulocytes (promyelocytes, myelocytes andmetamyelocytes) > 1% indicates that a LEFT SHIFT is Present. Performed By: #### L 100.0100, L500.4050 ####[facility] [address] [place], [address] Lymphocytes/100 WBC (Bld) 7.4 % Low 19-41 [facility] Comment on above: Performed By: #### L 100.0100, L500.4050 ####[facility] [address] [place], [address] MCH (RBC) [Entitic mass] 27.0 pg Normal 27.0-32.0 [facility] Comment on above: Performed By: #### L 100.0100, L500.4050 ####[facility] [address] [place], [address] MCHC (RBC) [Mass/Vol] 34.0 g/dL Normal 32-36 [facility] Comment on above: Performed By: #### L 100.0100, L500.4050 ####[facility] [address] [place], [address] MCV (RBC) [Entitic vol] 79.5 fL Low 80-94 [facility] Comment on above: Performed By: #### L 100.0100, L500.4050 ####[facility] [address] [place], [address] Monocytes/100 WBC (Bld) 5.5 % Normal 0-10 [facility] Comment on above: Performed By: #### L 100.0100, L500.4050 ####[facility] [facility] [address] [place], [address] Neutrophils/100 WBC (Bld) 85.2 % High 47-70 [facility] Comment on above: Performed By: #### L 100.0100, L500.4050 ####[facility] [address] [place], [address] Nucleated RBC (Bld) [#/Vol] 0 10*3/uL Normal 0-5 [facility] Comment on above: Performed By: #### L 100.0100, L500.4050 ####[facility] [address] [place], [address] Platelet mean volume (Bld) [Entitic vol] 10.9 fL Normal 6.2-12.0 [facility] Comment on above: Performed By: #### L 100.0100, L500.4050 ####[facility] [address] [place], [address] Platelets (Bld) [#/Vol] 108 10*3/uL Low 150-450 [facility] Comment on above: Performed By: #### L 100.0100, L500.4050 ####[facility] [address] [place], [address] RBC (Bld) [#/Vol] 3.07 10*6/uL Low 4.6-6.2 [facility] Comment on above: Performed By: #### L 100.0100, L500.4050 ####[facility] [address] [place], [address] RDW SD 45.3 fl High 35.1-43.9 [facility] Comment on above: Performed By: #### L 100.0100, L500.4050 ####[facility] [address] [place], [address] WBC (Bld) [#/Vol] 9.1 10*3/uL Normal 4.4-11.0 [facility] Comment on above: Performed By: #### L 100.0100, L500.4050 ####[facility] [address] [place], [address] Comprehensive Metabolic Prof ilon 05-08-2025 Albumin/Globulin [Mass ratio] 0.8 {ratio} Low 0.9-2.4 [facility] Comment on above: Performed By: #### L 100.0100, L500.4050 ####[facility] [address] [place], [address] ALK PHOS 82 U/L Normal 40-129 [facility] Comment on above: Performed By: #### L 100.0100, L500.4050 ####[facility] [address] [place], [address] ALT [Catalytic activity/Vol] 31 U/L Normal <=46 [facility] Comment on above: Performed By: #### L 100.0100, L500.4050 ####[facility] [address] [place], [address] AST [Catalytic activity/Vol] 68 U/L High <=37 [facility] Comment on above: Performed By: #### L 100.0100, L500.4050 ####[facility] [address] [place], [address] Bilirubin [Mass/Vol] 0.66 mg/dL Normal 0.00-1.30 [facility] Comment on above: Performed By: #### L 100.0100, L500.4050 ####[facility] [address] [place], [address] BUN/CRE 15.9 RATIO Normal 10-20 [facility] Comment on above: Performed By: #### L 100.0100, L500.4050 ####[facility] [address] [place], [address] CO2 [Moles/Vol] 21.3 mmol/L Normal 21.0-32.0 [facility] Comment on above: Performed By: #### L 100.0100, L500.4050 ####[facility] [address] [place], [address] Creatinine [Mass/Vol] 3.31 mg/dL High 0.70-1.20 [facility] Comment on above: Performed By: #### L 100.0100, L500.4050 ####[facility] [address] [place], [address] ECRCL 31.70 ml/min Low 50-250 [facility] Comment on above: Performed By: #### L 100.0100, L500.4050 ####[facility] [address] [place], [address] GAP 12 Normal 5-15 [facility] Comment on above: Performed By: #### L 100.0100, L500.4050 ####[facility] [address] [place], [address] GFR/1.73 sq M.predicted among non-blacks MDRD (S/P/Bld) [Vol rate/Area] 21 mL/min/{1.73_m2} Low >60 [facility] Comment on above: Result Comment: mL/m in/1.73m2 CKD-EPI Creatinine Equation (2020) Performed By: #### L 100.0100, L500.4050 ####[facility] [address] [place], [address] Globulin (S) [Mass/Vol] 3.0 g/dL Normal 2.2-4.2 [facility] Comment on above: Performed By: #### L 100.0100, L500.4050 ####[facility] [address] [place], [address] Glucose [Mass/Vol] 136 mg/dL High 70-99 [facility] Comment on above: Performed By: #### L 100.0100, L500.4050 ####[facility] [address] [place], [address] Potassium [Moles/Vol] 4.0 mmol/L Normal 3.3-5.1 [facility] Comment on above: Performed By: #### L 100.0100, L500.4050 ####[facility] [address] [place], [address] T PROT 5.4 g/dL Low 5.9-8.4 [facility] Comment on above: Performed By: #### L 100.0100, L500.4050 ####[facility] [address] [place], [address] Consultation - Infectious Dx on 05-08-2025 Consultation - Infectious Dx Normal [facility] Culture, Blood (WB)on 2024 CUB Normal [facility] Comment on above: Performed By: #### M 200.1000 ####[facility] [address] [place], [address] Renal Profileon 05-08-2025 Albumin [Mass/Vol] 2.4 g/dL Low 3.5-5.0 [facility] Comment on above: Performed By: #### L 500.3600 ####[facility] [address] [place], [address] Performed By: #### L 100.0100, L500.4050 ####[facility] [address] [place], [address] BUN/CRE 15.7 RATIO Normal 05-15 [facility] Comment on above: Performed By: #### L 500.3600 ####[facility] [address] [place], [address] Calcium [Mass/Vol] 7.3 mg/dL Low 7.6-11.0 [facility] Comment on above: Performed By: #### L 500.3600 ####[facility] [address] [place], [address] Performed By: #### L 100.0100, L500.4050 ####[facility] [address] [place], [address] Chloride [Moles/Vol] 104 mmol/L Normal 98-108 [facility] Comment on above: Performed By: #### L 500.3600 ####[facility] [address] [place], [address] Performed By: #### L 100.0100, L500.4050 ####[facility] [address] [place], [address] CO2 [Moles/Vol] 21.7 mmol/L Normal 21.0-32.0 [facility] Comment on above: Performed By: #### L 500.3600 ####[facility] [address] [place], [address] Creatinine [Mass/Vol] 3.38 mg/dL High 0.70-1.20 [facility] Comment on above: Performed By: #### L 500.3600 ####[facility] [address] [place], [address] ECRCL 31.04 ml/min Low 50-250 [facility] Comment on above: Performed By: #### L 500.3600 ####[facility] [address] [place], [address] GAP 11 Normal 5-15 [facility] Comment on above: Performed By: #### L 500.3600 ####[facility] [address] [place], [address] GFR/1.73 sq M.predicted among non-blacks MDRD (S/P/Bld) [Vol rate/Area] 20 mL/min/{1.73_m2} Low >60 [facility] Comment on above: Result Comment: mL/m in/1.73m2 CKD-EPI Creatinine Equation (2020) Performed By: #### L 500.3600 ####[facility] [address] [place], [address] Glucose [Mass/Vol] 138 mg/dL High 70-99 [facility] Comment on above: Performed By: #### L 500.3600 ####[facility] [address] [place], [address] Phosphate [Mass/Vol] 5.1 mg/dL High 2.7-4.5 [facility] Comment on above: Performed By: #### L 500.3600 ####[facility] [address] [place], [address] Potassium [Moles/Vol] 3.9 mmol/L Normal 3.3-5.1 [facility] Comment on above: Performed By: #### L 500.3600 ####[facility] [address] [place], [address] Sodium [Moles/Vol] 137 mmol/L Normal 133-145 [facility] Comment on above: Performed By: #### L 500.3600 ####[facility] [address] [place], [address] Performed By: #### L 100.0100, L500.4050 ####[facility] [address] [place], [address] Urea nitrogen [Mass/Vol] 53 mg/dL High 4-19 [facility] Comment on above: Performed By: #### L 500.3600 ####[facility] [address] [place], [address] Performed By: #### L 100.0100, L500.4050 ####[facility] [address] [place], [address] Bedside Glucoseon 05-07-2025 FINGERSTICK GLU 119 mg/dL High 74-106 [facility] Comment on above: Result Comment: KIANA GEMENT OF PATIENT CARE PER NURSING PROTOCOL Performed By: #### L 501.080 ####[facility] [address] [place], [address] FINGERSTICK GLU 132 mg/dL High 74-106 [facility] Comment on above: Result Comment: Dr Marcos rivera FollowedMANAGEMENT OF PATIENT CARE PER NURSING PROTOCOL Performed By: #### L 501.080 ####[facility] [address] [place], [address] FINGERSTICK GLU 137 mg/dL High 74-106 [facility] Comment on above: Result Comment: KIANA GEMENT OF PATIENT CARE PER NURSING PROTOCOL Performed By: #### L 501.080 ####[facility] [address] [place], [address] FINGERSTICK GLU 134 mg/dL High 74-106 [facility] Comment on above: Result Comment: KIANA GEMENT OF PATIENT CARE PER NURSING PROTOCOL Performed By: #### L 501.080 ####[facility] [address] [place], [address] Blood Gases by [facility] 025 BRADLY TEST Positive Normal [facility] Comment on above: Performed By: #### L 9000.0800 ####[facility] [address] [place], [address] Base excess Calc (Bld) [Moles/Vol] -1 mmol/L Normal -2 to +2 [facility] Comment on above: Performed By: #### L 9000.0800 ####[facility] [address] [place], [address] Blood Gas Type ART Normal [facility] Comment on above: Performed By: #### L 9000.0800 ####[facility] [address] [place], [address] CO2 [Moles/Vol] 24 mmol/L Normal [facility] Comment on above: Performed By: #### L 9000.0800 ####[facility] [address] [place], [address] FI02 30.0 Normal [facility] Comment on above: Performed By: #### L 9000.0800 ####[facility] [address] [place], [address] HCO3 (Bld) [Moles/Vol] 22.7 mmol/L Normal 22-26 [facility] Comment on above: Performed By: #### L 9000.0800 ####[facility] [address] [place], [address] Mode AC Normal [facility] Comment on above: Performed By: #### L 9000.0800 ####[facility] [address] [place], [address] O2 Delivery Dev ET Tube Normal [facility] Comment on above: Performed By: #### L 9000.0800 ####[facility] [address] [place], [address] pCO2 31.9 mmHg Low 35-45 [facility] Comment on above: Performed By: #### L 9000.0800 ####[facility] [address] [place], [address] PEEP 5 Normal [facility] Comment on above: Performed By: #### L 9000.0800 ####[facility] [address] [place], [address] pH (Bld) 7.46 [pH] High 7.35-7.45 [facility] Comment on above: Performed By: #### L 9000.0800 ####[facility] [address] [place], [address] PO2 82 mmHG Normal 75-100 [facility] Comment on above: Performed By: #### L 9000.0800 ####[facility] [address] [place], [address] RR 18 Normal [facility] Comment on above: Performed By: #### L 9000.0800 ####[facility] [address] [place], [address] SITE R Radial Normal [facility] Comment on above: Performed By: #### L 9000.0800 ####[facility] [address] [place], [address] SO2 97 Normal 95-99 [facility] Comment on above: Performed By: #### L 9000.0800 ####[facility] [address] [place], [address] Vt 600.0 mL Normal [facility] Comment on above: Performed By: #### L 9000.0800 ####[facility] [address] [place], [address] CBC W/Diff, Automatedon 10-1 -2024 Absolute Lymph 0.80 X10 3/uL Low 0.83-4.51 [facility] Comment on above: Performed By: #### L 100.0100, L500.4050 ####[facility] [address] [place], [address] Absolute Neut 13.7 X10 3/uL High 2.0-7.7 [facility] Comment on above: Performed By: #### L 100.0100, L500.4050 ####[facility] [address] [place], [address] Basophils/100 WBC (Bld) 0.3 % Normal 0-1 [facility] Comment on above: Performed By: #### L 100.0100, L500.4050 ####[facility] [address] [place], [address] Eosinophils/100 WBC (Bld) 0.0 % Normal 0-5 [facility] Comment on above: Performed By: #### L 100.0100, L500.4050 ####[facility] [address] [place], [address] Erythrocyte distribution width (RBC) [Ratio] 15.9 % High 11.6-14.6 [facility] Comment on above: Performed By: #### L 100.0100, L500.4050 ####[facility] [address] [place], [address] Hematocrit (Bld) [Volume fraction] 27.7 % Low 40-54 [facility] Comment on above: Performed By: #### L 100.0100, L500.4050 ####[facility] [address] [place], [address] Hemoglobin (Bld) [Mass/Vol] 9.8 g/dL Low 13.0-16.5 [facility] Comment on above: Performed By: #### L 100.0100, L500.4050 ####[facility] [address] [place], [address] IG% 1.800 High 0.0-0.9 [facility] Comment on above: Result Comment: IG% - Immature Granulocytes (promyelocytes, myelocytes andmetamyelocytes) > 1% indicates that a LEFT SHIFT is Present. Performed By: #### L 100.0100, L500.4050 ####[facility] [address] [place], [address] Lymphocytes/100 WBC (Bld) 5.1 % Low 19-41 [facility] Comment on above: Performed By: #### L 100.0100, L500.4050 ####[facility] [address] [place], [address] MCH (RBC) [Entitic mass] 27.6 pg Normal 27.0-32.0 [facility] Comment on above: Performed By: #### L 100.0100, L500.4050 ####[facility] [address] [place], [address] MCHC (RBC) [Mass/Vol] 35.4 g/dL Normal 32-36 [facility] Comment on above: Performed By: #### L 100.0100, L500.4050 ####[facility] [address] [place], [address] MCV (RBC) [Entitic vol] 78.0 fL Low 80-94 [facility] Comment on above: Performed By: #### L 100.0100, L500.4050 ####[facility] [address] [place], [address] Monocytes/100 WBC (Bld) 6.0 % Normal 0-10 [facility] Comment on above: Performed By: #### L 100.0100, L500.4050 ####[facility] [address] [place], [address] Neutrophils/100 WBC (Bld) 86.8 % High 47-70 [facility] Comment on above: Performed By: #### L 100.0100, L500.4050 ####[facility] [address] [place], [address] Nucleated RBC (Bld) [#/Vol] 0 10*3/uL Normal 0-5 [facility] Comment on above: Performed By: #### L 100.0100, L500.4050 ####[facility] [address] [place], [address] Platelet mean volume (Bld) [Entitic vol] 11.2 fL Normal 6.2-12.0 [facility] Comment on above: Performed By: #### L 100.0100, L500.4050 ####[facility] [address] [place], [address] Platelets (Bld) [#/Vol] 138 10*3/uL Low 150-450 [facility] Comment on above: Performed By: #### L 100.0100, L500.4050 ####[facility] [address] [place], [address] RBC (Bld) [#/Vol] 3.55 10*6/uL Low 4.6-6.2 [facility] Comment on above: Performed By: #### L 100.0100, L500.4050 ####[facility] [address] [place], [address] RDW SD 45.3 fl High 35.1-43.9 [facility] Comment on above: Performed By: #### L 100.0100, L500.4050 ####[facility] [address] [place], [address] WBC (Bld) [#/Vol] 15.8 10*3/uL High 4.4-11.0 [facility] Comment on above: Performed By: #### L 100.0100, L500.4050 ####[facility] [address] [place], [address] Comprehensive Metabolic Prof [facility] 05-07-2025 Albumin [Mass/Vol] 2.5 g/dL Low 3.5-5.0 [facility] Comment on above: Performed By: #### L 100.0100, L500.4050 ####[facility] [address] [place], [address] Albumin/Globulin [Mass ratio] 0.8 {ratio} Low 0.9-2.4 [facility] Comment on above: Performed By: #### L 100.0100, L500.4050 ####[facility] [address] [place], [address] ALK PHOS 102 U/L Normal 40-129 [facility] Comment on above: Performed By: #### L 100.0100, L500.4050 ####[facility] [address] [place], [address] ALT [Catalytic activity/Vol] 30 U/L Normal <=46 [facility] Comment on above: Performed By: #### L 100.0100, L500.4050 ####[facility] [address] [place], [address] AST [Catalytic activity/Vol] 85 U/L High <=37 [facility] Comment on above: Performed By: #### L 100.0100, L500.4050 ####[facility] [address] [place], [address] Bilirubin [Mass/Vol] 1.01 mg/dL Normal 0.00-1.30 [facility] Comment on above: Performed By: #### L 100.0100, L500.4050 ####[facility] [address] [place], [address] BUN/CRE 11.3 RATIO Normal 10-20 [facility] Comment on above: Performed By: #### L 100.0100, L500.4050 ####[facility] [address] [place], [address] Calcium [Mass/Vol] 7.7 mg/dL Normal 7.6-11.0 [facility] Comment on above: Performed By: #### L 100.0100, L500.4050 ####[facility] [address] [place], [address] Chloride [Moles/Vol] 102 mmol/L Normal 98-108 [facility] Comment on above: Performed By: #### L 100.0100, L500.4050 ####[facility] [address] [place], [address] CO2 [Moles/Vol] 21.0 mmol/L Normal 21.0-32.0 [facility] Comment on above: Performed By: #### L 100.0100, L500.4050 ####[facility] [address] [place], [address] Creatinine [Mass/Vol] 2.52 mg/dL High 0.70-1.20 [facility] Comment on above: Performed By: #### L 100.0100, L500.4050 ####[facility] [address] [place], [address] ECRCL 41.63 ml/min Low 50-250 [facility] Comment on above: Performed By: #### L 100.0100, L500.4050 ####[facility] [address] [place], [address] GAP 12 Normal 5-15 [facility] Comment on above: Performed By: #### L 100.0100, L500.4050 ####[facility] [address] [place], [address] GFR/1.73 sq M.predicted among non-blacks MDRD (S/P/Bld) [Vol rate/Area] 29 mL/min/{1.73_m2} Low >60 [facility] Comment on above: Result Comment: mL/m in/1.73m2 CKD-EPI Creatinine Equation (2020) Performed By: #### L 100.0100, L500.4050 ####[facility] [address] [place], [address] Globulin (S) [Mass/Vol] 3.2 g/dL Normal 2.2-4.2 [facility] Comment on above: Performed By: #### L 100.0100, L500.4050 ####[facility] [address] [place], [address] Glucose [Mass/Vol] 153 mg/dL High 70-99 [facility] Comment on above: Performed By: #### L 100.0100, L500.4050 ####[facility] [address] [place], [address] Potassium [Moles/Vol] 3.9 mmol/L Normal 3.3-5.1 [facility] Comment on above: Performed By: #### L 100.0100, L500.4050 ####[facility] [address] [place], [address] Sodium [Moles/Vol] 135 mmol/L Normal 133-145 [facility] Comment on above: Performed By: #### L 100.0100, L500.4050 ####[facility] [address] [place], [address] T PROT 5.7 g/dL Low 5.9-8.4 [facility] Comment on above: Performed By: #### L 100.0100, L500.4050 ####[facility] [address] [place], [address] Urea nitrogen [Mass/Vol] 29 mg/dL High 4-19 [facility] Comment on above: Performed By: #### L 100.0100, L500.4050 ####[facility] [address] [place], [address] Culture, Blood (WB)on 2024 CUB Normal [facility] Comment on above: Performed By: #### M 200.1000 ####[facility] [address] [place], [address] Phosphoruson 05-07-2025 Phosphate [Mass/Vol] 4.1 mg/dL Normal 2.7-4.5 [facility] Comment on above: Performed By: #### L 500.3600, L501.2300 ####[facility] [address] [place], [address] Renal Profileon 05-07-2025 Albumin [Mass/Vol] 2.5 g/dL Low 3.5-5.0 [facility] Comment on above: Performed By: #### L 500.3600 ####[facility] [address] [place], [address] BUN/CRE 14.1 RATIO Normal 10-20 [facility] Comment on above: Performed By: #### L 500.3600 ####[facility] [address] [place], [address] Calcium [Mass/Vol] 7.7 mg/dL Normal 7.6-11.0 [facility] Comment on above: Performed By: #### L 500.3600 ####[facility] [address] [place], [address] Chloride [Moles/Vol] 104 mmol/L Normal 98-108 [facility] Comment on above: Performed By: #### L 500.3600 ####[facility] [address] [place], [address] CO2 [Moles/Vol] 21.8 mmol/L Normal 21.0-32.0 [facility] Comment on above: Performed By: #### L 500.3600 ####[facility] [facility] [address] [place], [address] Creatinine [Mass/Vol] 2.75 mg/dL High 0.70-1.20 [facility] Comment on above: Performed By: #### L 500.3600 ####[facility] [address] [place], [address] ECRCL 38.15 ml/min Low 50-250 [facility] Comment on above: Performed By: #### L 500.3600 ####[facility] [address] [place], [address] GAP 12 Normal 5-15 [facility] Comment on above: Performed By: #### L 500.3600 ####[facility] [address] [place], [address] GFR/1.73 sq M.predicted among non-blacks MDRD (S/P/Bld) [Vol rate/Area] 26 mL/min/{1.73_m2} Low >60 [facility] Comment on above: Result Comment: mL/m in/1.73m2 CKD-EPI Creatinine Equation (2020) Performed By: #### L 500.3600 ####[facility] [address] [place], [address] Glucose [Mass/Vol] 131 mg/dL High 70-99 [facility] Comment on above: Performed By: #### L 500.3600 ####[facility] [address] [place], [address] Phosphate [Mass/Vol] 4.8 mg/dL High 2.7-4.5 [facility] Comment on above: Performed By: #### L 500.3600 ####[facility] [address] [place], [address] Potassium [Moles/Vol] 4.0 mmol/L Normal 3.3-5.1 [facility] Comment on above: Performed By: #### L 500.3600 ####[facility] [address] [place], [address] Sodium [Moles/Vol] 138 mmol/L Normal 133-145 [facility] Comment on above: Performed By: #### L 500.3600 ####[facility] [address] [place], [address] Urea nitrogen [Mass/Vol] 39 mg/dL High 4-19 [facility] Comment on above: Performed By: #### L 500.3600 ####[facility] [address] [place], [address] Albumin [Mass/Vol] 2.5 g/dL Low 3.5-5.0 [facility] Comment on above: Performed By: #### L 500.3600 ####[facility] [address] [place], [address] BUN/CRE 13.2 RATIO Normal 10-20 [facility] Comment on above: Performed By: #### L 500.3600 ####[facility] [address] [place], [address] Calcium [Mass/Vol] 7.9 mg/dL Normal 7.6-11.0 [facility] Comment on above: Performed By: #### L 500.3600 ####[facility] [address] [place], [address] Chloride [Moles/Vol] 102 mmol/L Normal 98-108 [facility] Comment on above: Performed By: #### L 500.3600 ####[facility] [address] [place], [address] CO2 [Moles/Vol] 20.6 mmol/L Low 21.0-32.0 [facility] Comment on above: Performed By: #### L 500.3600 ####[facility] [address] [place], [address] Creatinine [Mass/Vol] 2.46 mg/dL High 0.70-1.20 [facility] Comment on above: Performed By: #### L 500.3600 ####[facility] [address] [place], [address] ECRCL 42.65 ml/min Low 50-250 [facility] Comment on above: Performed By: #### L 500.3600 ####[facility] [address] [place], [address] GAP 14 Normal 5-15 [facility] Comment on above: Performed By: #### L 500.3600 ####[facility] [address] [place], [address] GFR/1.73 sq M.predicted among non-blacks MDRD (S/P/Bld) [Vol rate/Area] 30 mL/min/{1.73_m2} Low >60 [facility] Comment on above: Result Comment: mL/m in/1.73m2 CKD-EPI Creatinine Equation (2020) Performed By: #### L 500.3600 ####[facility] [address] [place], [address] Glucose [Mass/Vol] 156 mg/dL High 70-99 [facility] Comment on above: Performed By: #### L 500.3600 ####[facility] [address] [place], [address] Phosphate [Mass/Vol] 5.0 mg/dL High 2.7-4.5 [facility] Comment on above: Performed By: #### L 500.3600 ####[facility] [address] [place], [address] Potassium [Moles/Vol] 4.1 mmol/L Normal 3.3-5.1 [facility] Comment on above: Performed By: #### L 500.3600 ####[facility] [address] [place], [address] Sodium [Moles/Vol] 136 mmol/L Normal 133-145 [facility] Comment on above: Performed By: #### L 500.3600 ####[facility] [address] [place], [address] Urea nitrogen [Mass/Vol] 33 mg/dL High 4-19 [facility] Comment on above: Performed By: #### L 500.3600 ####[facility] [address] [place], [address] ALB Normal 3.5-5.0 [facility] Comment on above: Performed By: #### L 500.3600, L501.2300 ####[facility] [address] [place], [address] BUN Normal 4-19 [facility] Comment on above: Performed By: #### L 500.3600, L501.2300 ####[facility] [address] [place], [address] BUN/CRE Normal 10-20 [facility] Comment on above: Performed By: #### L 500.3600, L501.2300 ####[facility] [address] [place], [address] Calcium Normal 7.6-11.0 [facility] Comment on above: Performed By: #### L 500.3600, L501.2300 ####[facility] [address] [place], [address] CL Normal 98-108 [facility] Comment on above: Performed By: #### L 500.3600, L501.2300 ####[facility] [address] [place], [address] CO2 Normal 21.0-32.0 [facility] Comment on above: Performed By: #### L 500.3600, L501.2300 ####[facility] [address] [place], [address] CREAT,SERUM Normal 0.70-1.20 [facility] Comment on above: Performed By: #### L 500.3600, L501.2300 ####[facility] [address] [place], [address] ECRCL Normal 50-250 [facility] Comment on above: Performed By: #### L 500.3600, L501.2300 ####[facility] [address] [place], [address] eGFR Normal >60 [facility] Comment on above: Result Comment: mL/m in/1.73m2 CKD-EPI Creatinine Equation (2020) Performed By: #### L 500.3600, L501.2300 ####[facility] [address] [place], [address] GAP Normal 5-15 [facility] Comment on above: Performed By: #### L 500.3600, L501.2300 ####[facility] [address] [place], [address] GLU Normal 70-99 [facility] Comment on above: Performed By: #### L 500.3600, L501.2300 ####[facility] [address] [place], [address] Potassium Normal 3.3-5.1 [facility] Comment on above: Performed By: #### L 500.3600, L501.2300 ####[facility] [address] [place], [address] Renal Profile Normal 133-145 [facility] Comment on above: Performed By: #### L 500.3600, L501.2300 ####[facility] [address] [place], [address] Urine Cultureon 05-07-2025 URC Normal [facility] Comment on above: Performed By: #### M 100.2200 ####[facility] [address] [place], [address] Vancomycin, Trough Levelon 1 VANCO, TROUGH 18.8 ug/mL High 5.0-15.0 [facility] Comment on above: Order Comment: Comme nts: Trough to be drawn 30 mins prior to scheduled odne1457 Result Comment: Mitesh mmended goal trough ranges [...] therapy recommended for serious lifethreatening infections include:- Bsjefvoemc-Kgjjnhsjmkoi-Btqdabfyu (Ventilator/Healtcare Associated)-SepsisPLEASE CONTACT PHARMACY SERVICES (#0819) FOR INTERPRETATIONOF RESULTS. Performed By: #### L 501.8820 ####[facility] [address] [place], [address] Basic Metabolic Profile (BMP )on 05-06-2025 BUN/CRE 13.5 RATIO Normal - [facility] Comment on above: Performed By: #### L 500.2500, L501.2300, L501.5200 ####[facility] [address] [place], [address] Calcium [Mass/Vol] 7.3 mg/dL Low 7.6-11.0 [facility] Comment on above: Performed By: #### L 500.2500, L501.2300, L501.5200 ####[facility] [address] [place], [address] Chloride [Moles/Vol] 103 mmol/L Normal 98-108 [facility] Comment on above: Performed By: #### L 500.2500, L501.2300, L501.5200 ####[facility] [address] [place], [address] CO2 [Moles/Vol] 19.4 mmol/L Low 21.0-32.0 [facility] Comment on above: Performed By: #### L 500.2500, L501.2300, L501.5200 ####[facility] [address] [place], [address] Creatinine [Mass/Vol] 2.72 mg/dL High 0.70-1.20 [facility] Comment on above: Performed By: #### L 500.2500, L501.2300, L501.5200 ####[facility] [address] [place], [address] ECRCL 38.79 ml/min Low 50-250 [facility] Comment on above: Performed By: #### L 500.2500, L501.2300, L501.5200 ####[facility] [address] [place], [address] GAP 11 Normal 5-15 [facility] Comment on above: Performed By: #### L 500.2500, L501.2300, L501.5200 ####[facility] [address] [place], [address] GFR/1.73 sq M.predicted among non-blacks MDRD (S/P/Bld) [Vol rate/Area] 26 mL/min/{1.73_m2} Low >60 [facility] Comment on above: Result Comment: mL/m in/1.73m2 CKD-EPI Creatinine Equation (2020) Performed By: #### L 500.2500, L501.2300, L501.5200 ####[facility] [address] [place], [address] Glucose [Mass/Vol] 189 mg/dL High 70-99 [facility] Comment on above: Performed By: #### L 500.2500, L501.2300, L501.5200 ####[facility] [address] [place], [address] Potassium [Moles/Vol] 3.4 mmol/L Normal 3.3-5.1 [facility] Comment on above: Performed By: #### L 500.2500, L501.2300, L501.5200 ####[facility] [address] [place], [address] Sodium [Moles/Vol] 133 mmol/L Normal 133-145 [facility] Comment on above: Performed By: #### L 500.2500, L501.2300, L501.5200 ####[facility] [address] [place], [address] Urea nitrogen [Mass/Vol] 37 mg/dL High 4-19 [facility] Comment on above: Performed By: #### L 500.2500, L501.2300, L501.5200 ####[facility] [address] [place], [address] Bedside Glucoseon 05-06-2025 FINGERSTICK GLU 104 mg/dL Normal 74-106 [facility] Comment on above: Result Comment: KIANA GEMENT OF PATIENT CARE PER NURSING PROTOCOL Performed By: #### L 501.080 ####[facility] [address] [place], [address] FINGERSTICK GLU 140 mg/dL High 74-106 [facility] Comment on above: Result Comment: KIANA GEMENT OF PATIENT CARE PER NURSING PROTOCOL Performed By: #### L 501.080 ####[facility] [address] [place], [address] FINGERSTICK GLU 136 mg/dL High 74-106 [facility] Comment on above: Result Comment: KIANA GEMENT OF PATIENT CARE PER NURSING PROTOCOL Performed By: #### L 501.080 ####[facility] [address] [place], [address] FINGERSTICK GLU 143 mg/dL High 74-106 [facility] Comment on above: Result Comment: KIANA GEMENT OF PATIENT CARE PER NURSING PROTOCOL Performed By: #### L 501.080 ####[facility] [address] [place], [address] FINGERSTICK GLU 149 mg/dL High 74-106 [facility] Comment on above: Result Comment: KIANA GEMENT OF PATIENT CARE PER NURSING PROTOCOL Performed By: #### L 501.080 ####[facility] [address], [address] FINGERSTICK GLU 126 mg/dL High 74-106 [facility] Comment on above: Result Comment: KIANA GEMENT OF PATIENT CARE PER NURSING PROTOCOL Performed By: #### L 501.080 ####[facility] [address] [place], [address] FINGERSTICK GLU 123 mg/dL High 74-106 [facility] Comment on above: Result Comment: KIANA GEMENT OF PATIENT CARE PER NURSING PROTOCOL Performed By: #### L 501.080 ####[facility] [address] [place], [address] FINGERSTICK GLU 135 mg/dL High 74-106 [facility] Comment on above: Result Comment: KIANA GEMENT OF PATIENT CARE PER NURSING PROTOCOL Performed By: #### L 501.080 ####[facility] [address] [place], [address] FINGERSTICK GLU 113 mg/dL High 74-106 [facility] Comment on above: Result Comment: KIANA GEMENT OF PATIENT CARE PER NURSING PROTOCOL Performed By: #### L 501.080 ####[facility] [address] [place], [address] FINGERSTICK GLU 172 mg/dL High 74-106 [facility] Comment on above: Result Comment: KIANA GEMENT OF PATIENT CARE PER NURSING PROTOCOL Performed By: #### L 501.080 ####[facility] [address] [place], [address] FINGERSTICK GLU 148 mg/dL High 74-106 [facility] Comment on above: Result Comment: KIANA GEMENT OF PATIENT CARE PER NURSING PROTOCOL Performed By: #### L 501.080 ####[facility] [address] [place], [address] FINGERSTICK GLU 118 mg/dL High 74-106 [facility] Comment on above: Result Comment: KIANA GEMENT OF PATIENT CARE PER NURSING PROTOCOL Performed By: #### L 501.080 ####[facility] [address] [place], [address] FINGERSTICK GLU 53 mg/dL Low 74-106 [facility] Comment on above: Result Comment: KIANA GEMENT OF PATIENT CARE PER NURSING PROTOCOL Performed By: #### L 501.080 ####[facility] [address] [place], [address] FINGERSTICK GLU 116 mg/dL High 74-106 [facility] Comment on above: Result Comment: KIANA GEMENT OF PATIENT CARE PER NURSING PROTOCOL Performed By: #### L 501.080 ####[facility] [address] [place], [address] FINGERSTICK GLU 125 mg/dL High 74-106 [facility] Comment on above: Result Comment: KIANA GEMENT OF PATIENT CARE PER NURSING PROTOCOL Performed By: #### L 501.080 ####[facility] [address] [place], [address] FINGERSTICK GLU 127 mg/dL High 74-106 [facility] Comment on above: Result Comment: KIANA GEMENT OF PATIENT CARE PER NURSING PROTOCOL Performed By: #### L 501.080 ####[facility] [address] [place], [address] FINGERSTICK GLU 83 mg/dL Normal 74-106 [facility] Comment on above: Result Comment: KIANA GEMENT OF PATIENT CARE PER NURSING PROTOCOL Performed By: #### L 501.080 ####[facility] [address] [place], [address] FINGERSTICK GLU 115 mg/dL High 74-106 [facility] Comment on above: Result Comment: KIANA GEMENT OF PATIENT CARE PER NURSING PROTOCOL Performed By: #### L 501.080 ####[facility] [address] [place], [address] FINGERSTICK GLU 90 mg/dL Normal 74-106 [facility] Comment on above: Result Comment: KIANA GEMENT OF PATIENT CARE PER NURSING PROTOCOL Performed By: #### L 501.080 ####[facility] [address] [place], [address] FINGERSTICK GLU 120 mg/dL High 74-106 [facility] Comment on above: Result Comment: KIANA GEMENT OF PATIENT CARE PER NURSING PROTOCOL Performed By: #### L 501.080 ####[facility] [address] [place], [address] FINGERSTICK GLU 72 mg/dL Low 74-106 [facility] Comment on above: Result Comment: KIANA GEMENT OF PATIENT CARE PER NURSING PROTOCOL Performed By: #### L 501.080 ####[facility] [address] [place], [address] FINGERSTICK GLU 153 mg/dL High 74-106 [facility] Comment on above: Result Comment: KIANA GEMENT OF PATIENT CARE PER NURSING PROTOCOL Performed By: #### L 501.080 ####[facility] [address] [place], [address] Blood Gases by [facility] 025 BRADLY TEST N/A Normal [facility] Comment on above: Performed By: #### L 9000.0800 ####[facility] [address] [place], [address] Base excess Calc (Bld) [Moles/Vol] -2 mmol/L Normal -2 to +2 [facility] Comment on above: Performed By: #### L 9000.0800 ####[facility] [address] [place], [address] Blood Gas Type ART Normal [facility] Comment on above: Performed By: #### L 8999.08 ####[facility] [address] [place], [address] CO2 [Moles/Vol] 24 mmol/L Normal [facility] Comment on above: Performed By: #### L 8999.0800 ####[facility] [address] [place], [address] FI02 21.0 Normal [facility] Comment on above: Performed By: #### L 8999.08 ####[facility] [address] [place], [address] HCO3 (Bld) [Moles/Vol] 22.6 mmol/L Normal 22-26 [facility] Comment on above: Performed By: #### L 8999.08 ####[facility] [address] [place], [address] Mode AC Normal [facility] Comment on above: Performed By: #### L 8999.08 ####[facility] [address] [place], [address] O2 Delivery Dev Adult Vent Normal [facility] Comment on above: Performed By: #### L 8999.0800 ####[facility] [address] [place], [address] pCO2 33.2 mmHg Low 35-45 [facility] Comment on above: Performed By: #### L 8999.08 ####[facility] [address] [place], [address] PEEP 5 Normal [facility] Comment on above: Performed By: #### L 8999.0800 ####[facility] [address] [place], [address] pH (Bld) 7.44 [pH] Normal 7.35-7.45 [facility] Comment on above: Performed By: #### L 9000.0800 ####[facility] [address] [place], [address] PO2 53 mmHG Low 75-100 [facility] Comment on above: Performed By: #### L 9000.0800 ####[facility] [address] [place], [address] RR 18 Normal [facility] Comment on above: Performed By: #### L 9000.0800 ####[facility] [address] [place], [address] SITE L Radial Normal [facility] Comment on above: Performed By: #### L 9000.0800 ####[facility] [address] [place], [address] SO2 88 Low 95-99 [facility] Comment on above: Performed By: #### L 9000.0800 ####[facility] [address] [place], [address] Vt 600.0 mL Normal [facility] Comment on above: Performed By: #### L 9000.0800 ####[facility] [address] [place], [address] CBC W/Diff, Automatedon 04-26 Absolute Lymph 0.80 X10 3/uL Low 0.83-4.51 [facility] Comment on above: Performed By: #### L 100.0100 ####[facility] [address] [place], [address] Absolute Neut 17.3 X10 3/uL High 2.0-7.7 [facility] Comment on above: Performed By: #### L 100.0100 ####[facility] [address] [place], [address] Basophils/100 WBC (Bld) 0.2 % Normal 0-1 [facility] Comment on above: Performed By: #### L 100.0100 ####[facility] [address] [place], [address] Eosinophils/100 WBC (Bld) 0.2 % Normal 0-5 [facility] Comment on above: Performed By: #### L 100.0100 ####[facility] [address] [place], [address] Erythrocyte distribution width (RBC) [Ratio] 15.6 % High 11.6-14.6 [facility] Comment on above: Performed By: #### L 100.0100 ####[facility] [address] [place], [address] Hematocrit (Bld) [Volume fraction] 27.3 % Low 40-54 [facility] Comment on above: Performed By: #### L 100.0100 ####[facility] [address] [place], [address] Hemoglobin (Bld) [Mass/Vol] 10.1 g/dL Low 13.0-16.5 [facility] Comment on above: Performed By: #### L 100.0100 ####[facility] [address] [place], [address] IG% 3.400 High 0.0-0.9 [facility] Comment on above: Result Comment: IG% - Immature Granulocytes (promyelocytes, myelocytes andmetamyelocytes) > 1% indicates that a LEFT SHIFT is Present. Performed By: #### L 100.0100 ####[facility] [address] [place], [address] Lymphocytes/100 WBC (Bld) 4.0 % Low 19-41 [facility] Comment on above: Performed By: #### L 100.0100 ####[facility] [address] [place], [address] MCH (RBC) [Entitic mass] 28.1 pg Normal 27.0-32.0 [facility] Comment on above: Performed By: #### L 100.0100 ####[facility] [address] [place], [address] MCHC (RBC) [Mass/Vol] 37.0 g/dL High 32-36 [facility] Comment on above: Performed By: #### L 100.0100 ####[facility] [address] [place], [address] MCV (RBC) [Entitic vol] 76.0 fL Low 80-94 [facility] Comment on above: Performed By: #### L 100.0100 ####[facility] [address] [place], [address] Monocytes/100 WBC (Bld) 4.9 % Normal 0-10 [facility] Comment on above: Performed By: #### L 100.0100 ####[facility] [address] [place], [address] Neutrophils/100 WBC (Bld) 87.3 % High 47-70 [facility] Comment on above: Performed By: #### L 100.0100 ####[facility] [address] [place], [address] Nucleated RBC (Bld) [#/Vol] 0 10*3/uL Normal 0-5 [facility] Comment on above: Performed By: #### L 100.0100 ####[facility] [address] [place], [address] Platelet mean volume (Bld) [Entitic vol] 10.9 fL Normal 6.2-12.0 [facility] Comment on above: Performed By: #### L 100.0100 ####[facility] [address] [place], [address] Platelets (Bld) [#/Vol] 136 10*3/uL Low 150-450 [facility] Comment on above: Performed By: #### L 100.0100 ####[facility] [address] [place], [address] RBC (Bld) [#/Vol] 3.59 10*6/uL Low 4.6-6.2 [facility] Comment on above: Performed By: #### L 100.0100 ####[facility] [address] [place], [address] RDW SD 43.3 fl Normal 35.1-43.9 [facility] Comment on above: Performed By: #### L 100.0100 ####[facility] [address] [place], [address] WBC (Bld) [#/Vol] 19.8 10*3/uL High 4.4-11.0 [facility] Comment on above: Performed By: #### L 100.0100 ####[facility] [address] [place], [address] Chest 1 View (Portable)on Chest 1 View (Portable) Normal [facility] Electrolyte Panelon 05-06-20 25 Chloride [Moles/Vol] 105 mmol/L Normal 98-108 [facility] Comment on above: Performed By: #### L 501.5200, L501.5294, L501.2300 ####[facility] [address] [place], [address] CO2 [Moles/Vol] 21.0 mmol/L Normal 21.0-32.0 [facility] Comment on above: Performed By: #### L 501.5200, L501.5294, L501.2300 ####[facility] [address] [place], [address] GAP 10 Normal 5-15 [facility] Comment on above: Performed By: #### L 501.5200, L501.5294, L501.2300 ####[facility] [address] [place], [address] Potassium [Moles/Vol] 3.4 mmol/L Normal 3.3-5.1 [facility] Comment on above: Performed By: #### L 501.5200, L501.5294, L501.2300 ####[facility] [address] [place], [address] Sodium [Moles/Vol] 136 mmol/L Normal 133-145 [facility] Comment on above: Performed By: #### L 501.5200, L501.5294, L501.2300 ####[facility] [address] [place], [address] Chloride [Moles/Vol] 105 mmol/L Normal 98-108 [facility] Comment on above: Performed By: #### L 501.2300, L501.5200, L501.5294 ####[facility] [address] [place], [address] CO2 [Moles/Vol] 21.0 mmol/L Normal 21.0-32.0 [facility] Comment on above: Performed By: #### L 501.2300, L501.5200, L501.5294 ####[facility] [address] [place], [address] GAP 10 Normal 5-15 [facility] Comment on above: Performed By: #### L 501.2300, L501.5200, L501.5294 ####[facility] [address] [place], [address] Potassium [Moles/Vol] 3.4 mmol/L Normal 3.3-5.1 [facility] Comment on above: Performed By: #### L 501.2300, L501.5200, L501.5294 ####[facility] [address], [address] Sodium [Moles/Vol] 135 mmol/L Normal 133-145 [facility] Comment on above: Performed By: #### L 501.2300, L501.5200, L501.5294 ####[facility] [address] [place], [address] Chloride [Moles/Vol] 103 mmol/L Normal 98-108 [facility] Comment on above: Performed By: #### L 501.5294, L501.2300, L501.5200 ####[facility] [address] [place], [address] CO2 [Moles/Vol] 20.2 mmol/L Low 21.0-32.0 [facility] Comment on above: Performed By: #### L 501.5294, L501.2300, L501.5200 ####[facility] [address] [place], [address] GAP 10 Normal 5-15 [facility] Comment on above: Performed By: #### L 501.5294, L501.2300, L501.5200 ####[facility] [address] [place], [address] Potassium [Moles/Vol] 3.2 mmol/L Low 3.3-5.1 [facility] Comment on above: Performed By: #### L 501.5294, L501.2300, L501.5200 ####[facility] [address] [place], [address] Sodium [Moles/Vol] 134 mmol/L Normal 133-145 [facility] Comment on above: Performed By: #### L 501.5294, L501.2300, L501.5200 ####[facility] [address] [place], [address] Chloride [Moles/Vol] 103 mmol/L Normal 98-108 [facility] Comment on above: Performed By: #### L 501.5200, L501.5294, L501.2300 ####[facility] [address] [place], [address] CO2 [Moles/Vol] 18.6 mmol/L Low 21.0-32.0 [facility] Comment on above: Performed By: #### L 501.5200, L501.5294, L501.2300 ####[facility] [address] [place], [address] GAP 12 Normal 5-15 [facility] Comment on above: Performed By: #### L 501.5200, L501.5294, L501.2300 ####[facility] [address] [place], [address] Potassium [Moles/Vol] 3.2 mmol/L Low 3.3-5.1 [facility] Comment on above: Performed By: #### L 501.5200, L501.5294, L501.2300 ####[facility] [address] [place], [address] Sodium [Moles/Vol] 134 mmol/L Normal 133-145 [facility] Comment on above: Performed By: #### L 501.5200, L501.5294, L501.2300 ####[facility] [address] [place], [address] Magnesiumon 05-06-2025 Magnesium [Mass/Vol] 2.3 mg/dL High 1.5-2.2 [facility] Comment on above: Performed By: #### L 501.5200, L501.5294, L501.2300 ####[facility] [address] [place], [address] Magnesium [Mass/Vol] 2.2 mg/dL Normal 1.5-2.2 [facility] Comment on above: Performed By: #### L 501.2300, L501.5200, L501.5294 ####[facility] [address] [place], [address] Magnesium [Mass/Vol] 2.1 mg/dL Normal 1.5-2.2 [facility] Comment on above: Performed By: #### L 500.2500, L501.2300, L501.5200 ####[facility] [address] [place], [address] Magnesium [Mass/Vol] 2.1 mg/dL Normal 1.5-2.2 [facility] Comment on above: Performed By: #### L 501.5294, L501.2300, L501.5200 ####[facility] [address] [place], [address] Magnesium [Mass/Vol] 2.1 mg/dL Normal 1.5-2.2 [facility] Comment on above: Performed By: #### L 501.5200, L501.5294, L501.2300 ####[facility] [address] [place], [address] Phosphoruson 05-06-2025 Phosphate [Mass/Vol] 3.0 mg/dL Normal 2.7-4.5 [facility] Comment on above: Performed By: #### L 501.5200, L501.5294, L501.2300 ####[facility] [address] [place], [address] Phosphate [Mass/Vol] 3.3 mg/dL Normal 2.7-4.5 [facility] Comment on above: Performed By: #### L 501.2300, L501.5200, L501.5294 ####[facility] [address] [place], [address] Phosphate [Mass/Vol] 2.8 mg/dL Normal 2.7-4.5 [facility] Comment on above: Performed By: #### L 500.2500, L501.2300, L501.5200 ####[facility] [address] [place], [address] Phosphate [Mass/Vol] 2.5 mg/dL Low 2.7-4.5 [facility] Comment on above: Performed By: #### L 501.5294, L501.2300, L501.5200 ####[facility] [address] [place], [address] Phosphate [Mass/Vol] 2.8 mg/dL Normal 2.7-4.5 [facility] Comment on above: Performed By: #### L 501.5200, L501.5294, L501.2300 ####[facility] [address] [place], [address] Respiratory Cultureon 2024 RESPC Normal [facility] Comment on above: Performed By: #### M 100.2400, M100.2000 ####[facility] [address] [place], [address] Vancomycin, Trough Levelon 1 VANCO, TROUGH 16.7 ug/mL High 5.0-15.0 [facility] Comment on above: Order Comment: Comme nts: DRAW 30 MIN PRIOR TO [id number] Result Comment: Mitesh mmended goal trough ranges [...] therapy recommended for serious lifethreatening infections include:- Mfvhvbxznz-Ogpujdrlacuc-Epzlkxhhg (Ventilator/Healtcare Associated)-SepsisPLEASE CONTACT PHARMACY SERVICES (#0444) FOR INTERPRETATIONOF RESULTS. Performed By: #### L 501.8820 ####[facility] [address] [place], [address] Basic Metabolic Profile (BMP )on 05-05-2025 BUN/CRE 18.7 RATIO Normal 05-15 [facility] Comment on above: Performed By: #### L 500.2500, L501.5200, L500.3600 ####[facility] [address] [place], [address] Calcium [Mass/Vol] 6.9 mg/dL Low 7.6-11.0 [facility] Comment on above: Performed By: #### L 500.2500, L501.5200, L500.3600 ####[facility] [address] [place], [address] CO2 [Moles/Vol] 8.8 mmol/L Invalid Interpretation Code 21.0-32.0 [facility] Comment on above: Result Comment: Crit ical Result(s) Called at:04:00 05-05-25 to Barbara Ruby: Paz Canseco??Results read back by same. Performed By: #### L 500.2500, L501.5200, L500.3600 ####[facility] [address] [place], [address] Creatinine [Mass/Vol] 4.60 mg/dL High 0.70-1.20 [facility] Comment on above: Performed By: #### L 500.2500, L501.5200, L500.3600 ####[facility] [address] [place], [address] ECRCL 22.74 ml/min Low 50-250 [facility] Comment on above: Performed By: #### L 500.2500, L501.5200, L500.3600 ####[facility] [address] [place], [address] GAP 24 High 5-15 [facility] Comment on above: Performed By: #### L 500.2500, L501.5200, L500.3600 ####[facility] [address] [place], [address] GFR/1.73 sq M.predicted among non-blacks MDRD (S/P/Bld) [Vol rate/Area] 14 mL/min/{1.73_m2} Low >60 [facility] Comment on above: Result Comment: mL/m in/1.73m2 CKD-EPI Creatinine Equation (2020) Performed By: #### L 500.2500, L501.5200, L500.3600 ####[facility] [address] [place], [address] Glucose [Mass/Vol] 223 mg/dL High 70-99 [facility] Comment on above: Performed By: #### L 500.2500, L501.5200, L500.3600 ####[facility] [address] [place], [address] Potassium [Moles/Vol] 3.9 mmol/L Normal 3.3-5.1 [facility] Comment on above: Performed By: #### L 500.2500, L501.5200, L500.3600 ####[facility] [address] [place], [address] Sodium [Moles/Vol] 134 mmol/L Normal 133-145 [facility] Comment on above: Performed By: #### L 500.2500, L501.5200, L500.3600 ####[facility] [address] [place], [address] Urea nitrogen [Mass/Vol] 86 mg/dL High 4-19 [facility] Comment on above: Performed By: #### L 500.2500, L501.5200, L500.3600 ####[facility] [address] [place], [address] CO2 [Moles/Vol] 5.9 mmol/L Invalid Interpretation Code 21.0-32.0 [facility] Comment on above: Result Comment: Crit ical Result(s) Called at:00:05-05-25 TO ADELAIDA Arnold: PAZ CANSECO??Results read back by same.Critical Result(s) Called at: 00:05-05-25 TO ADELAIDA Arnold: PAZ CANSECO ??Results read back by same. AMENDED REPORT 05/05/2534 CO2 previously reported as: 6.8 *L mmol/LCritical Result(s) Called at:00:05-05-25 TO ADELAIDA Arnold: PAZ CANSECO??Results read back by same. Performed By: #### L 500.2500, L501.9520, L501.5200 ####[facility] [address] [place], [address] GAP 23 High 5-15 [facility] Comment on above: Result Comment: AMENDED REPORT 05/05/2534 GAP previously reported as: 22 H Performed By: #### L 500.2500, L501.9520, L501.5200 ####[facility] [address] [place], [address] Bedside Glucoseon 05-05-2025 FINGERSTICK GLU 110 mg/dL High 74-106 [facility] Comment on above: Result Comment: KIANA GEMENT OF PATIENT CARE PER NURSING PROTOCOL Performed By: #### L 501.080 ####[facility] [address] [place], [address] FINGERSTICK GLU 120 mg/dL High 74-106 [facility] Comment on above: Result Comment: KIANA GEMENT OF PATIENT CARE PER NURSING PROTOCOL Performed By: #### L 501.080 ####[facility] [address] [place], [address] FINGERSTICK GLU 143 mg/dL High 74-106 [facility] Comment on above: Result Comment: KIANA GEMENT OF PATIENT CARE PER NURSING PROTOCOL Performed By: #### L 501.080 ####[facility] [address] [place], [address] FINGERSTICK GLU 114 mg/dL High 74-106 [facility] Comment on above: Result Comment: KIANA GEMENT OF PATIENT CARE PER NURSING PROTOCOL Performed By: #### L 501.080 ####[facility] [address], [address] FINGERSTICK GLU 146 mg/dL High 74-106 [facility] Comment on above: Result Comment: KIANA GEMENT OF PATIENT CARE PER NURSING PROTOCOL Performed By: #### L 501.080 ####[facility] [address] [place], [address] FINGERSTICK GLU 151 mg/dL High 74-106 [facility] Comment on above: Result Comment: KIANA GEMENT OF PATIENT CARE PER NURSING PROTOCOL Performed By: #### L 501.080 ####[facility] [address] [place], [address] FINGERSTICK GLU 140 mg/dL High 74-106 [facility] Comment on above: Result Comment: KIANA GEMENT OF PATIENT CARE PER NURSING PROTOCOL Performed By: #### L 501.080 ####[facility] [address] [place], [address] FINGERSTICK GLU 172 mg/dL High 74-106 [facility] Comment on above: Result Comment: KIANA GEMENT OF PATIENT CARE PER NURSING PROTOCOL Performed By: #### L 501.080 ####[facility] [address] [place], [address] Beta-Hydroxbytyrateon 2024 BETA-HYDROXYBUT 1.7 mmol/L High 0.0-0.3 [facility] Comment on above: Order Comment: Comme nts: please add onto 829 blood draw Performed By: #### L 501.690 ####[facility] [address] [place], [address] Blood Gases by CPSon 025 Base excess Calc (Bld) [Moles/Vol] -7 mmol/L Low -2 to +2 [facility] Comment on above: Performed By: #### L 9000.0800 ####[facility] [address] [place], [address] CO2 [Moles/Vol] 20 mmol/L Normal [facility] Comment on above: Performed By: #### L 9000.0800 ####[facility] [address] [place], [address] HCO3 (Bld) [Moles/Vol] 18.7 mmol/L Low 22-26 [facility] Comment on above: Performed By: #### L 9000.0800 ####[facility] [address] [place], [address] pCO2 34.5 mmHg Low 35-45 [facility] Comment on above: Performed By: #### L 9000.0800 ####[facility] [address] [place], [address] pH (Bld) 7.34 [pH] Low 7.35-7.45 [facility] Comment on above: Performed By: #### L 9000.0800 ####[facility] [address] [place], [address] PO2 88 mmHG Normal 75-100 [facility] Comment on above: Performed By: #### L 9000.0800 ####[facility] [address] [place], [address] RR 18 Normal [facility] Comment on above: Performed By: #### L 9000.0800 ####[facility] [address] [place], [address] SO2 96 Normal 95-99 [facility] Comment on above: Performed By: #### L 9000.0800 ####[facility] [address] [place], [address] BRADLY TEST Positive Normal [facility] Comment on above: Performed By: #### L 9000.0800 ####[facility] [address] [place], [address] Base excess Calc (Bld) [Moles/Vol] -13 mmol/L Low -2 to +2 [facility] Comment on above: Performed By: #### L 9000.0800 ####[facility] [address] [place], [address] Blood Gas Type ART Normal [facility] Comment on above: Performed By: #### L 9000.0800 ####[facility] [address] [place], [address] CO2 [Moles/Vol] 14 mmol/L Normal [facility] Comment on above: Performed By: #### L 9000.0800 ####[facility] [address] [place], [address] FI02 30.0 Normal [facility] Comment on above: Performed By: #### L 9000.0800 ####[facility] [address] [place], [address] HCO3 (Bld) [Moles/Vol] 13.2 mmol/L Low 22-26 [facility] Comment on above: Performed By: #### L 9000.0800 ####[facility] [address] [place], [address] Mode AC Normal [facility] Comment on above: Performed By: #### L 9000.0800 ####[facility] [address] [place], [address] O2 Delivery Dev Adult Vent Normal [facility] Comment on above: Performed By: #### L 9000.0800 ####[facility] [address] [place], [address] pCO2 25.1 mmHg Low 35-45 [facility] Comment on above: Performed By: #### L 9000.0800 ####[facility] [address] [place], [address] PEEP 5 Normal [facility] Comment on above: Performed By: #### L 9000.0800 ####[facility] [address] [place], [address] pH (Bld) 7.33 [pH] Low 7.35-7.45 [facility] Comment on above: Performed By: #### L 9000.0800 ####[facility] [address] [place], [address] PO2 91 mmHG Normal 75-100 [facility] Comment on above: Performed By: #### L 9000.0800 ####[facility] [address] [place], [address] RR 24 Normal [facility] Comment on above: Performed By: #### L 9000.0800 ####[facility] [address] [place], [address] SITE L Radial Normal [facility] Comment on above: Performed By: #### L 9000.0800 ####[facility] [address] [place], [address] SO2 97 Normal 95-99 [facility] Comment on above: Performed By: #### L 0.0800 ####[facility] [address] [place], [address] Vt 600.0 mL Normal [facility] Comment on above: Performed By: #### L 0.08 ####[facility] [address] [place], [address] BRADLY TEST N/A Normal [facility] Comment on above: Performed By: #### L 0.0800 ####[facility] [address] [place], [address] Base excess Calc (Bld) [Moles/Vol] -22 mmol/L Low -2 to +2 [facility] Comment on above: Performed By: #### L 0.0800 ####[facility] [address] [place], [address] Blood Gas Type ART Normal [facility] Comment on above: Performed By: #### L 0.0800 ####[facility] [address] [place], [address] CO2 [Moles/Vol] 8 mmol/L [facility] Comment on above: Performed By: #### L 0.0800 ####[facility] [address] [place], [address] FI02 50.0 [facility] Comment on above: Performed By: #### L 0.0800 ####[facility] [address] [place], [address] HCO3 (Bld) [Moles/Vol] 7.0 mmol/L Low 22-26 [facility] Comment on above: Performed By: #### L 0.0800 ####[facility] [address] [place], [address] Mode AC Normal [facility] Comment on above: Performed By: #### L 9000.0800 ####[facility] [address] [place], [address] O2 Delivery Dev Adult Vent Normal [facility] Comment on above: Performed By: #### L 9000.0800 ####[facility] [address] [place], [address] pCO2 21.0 mmHg Low 35-45 [facility] Comment on above: Performed By: #### L 9000.0800 ####[facility] [address] [place], [address] PEEP 5 Normal [facility] Comment on above: Performed By: #### L 9000.0800 ####[facility] [address] [place], [address] pH (Bld) 7.13 [pH] Invalid Interpretation Code 7.35-7.45 [facility] Comment on above: Performed By: #### L 0.0800 ####[facility] [address] [place], [address] PO2 105 mmHG High 75-100 [facility] Comment on above: Performed By: #### L 0.0800 ####[facility] [address] [place], [address] Read Back By Yes Normal [facility] Comment on above: Performed By: #### L 0.0800 ####[facility] [address] [place], [address] Results To Tele physician Normal [facility] Comment on above: Performed By: #### L 8999.0800 ####[facility] [address] [place], [address] RR 24 Normal [facility] Comment on above: Performed By: #### L 0.0800 ####[facility] [address] [place], [address] SITE L Radial Normal [facility] Comment on above: Performed By: #### L 9000.0800 ####[facility] [address] [place], [address] SO2 96 Normal 95-99 [facility] Comment on above: Performed By: #### L 9000.0800 ####[facility] [address] [place], [address] Time Given 01:10:28 Normal [facility] Comment on above: Performed By: #### L 9000.0800 ####[facility] [address] [place], [address] Vt 600.0 mL Normal [facility] Comment on above: Performed By: #### L 9000.0800 ####[facility] [address] [place], [address] CBC-Complete Blood Cnt No Di ffon 05-05-2025 Erythrocyte distribution width (RBC) [Ratio] 15.8 % High 11.6-14.6 [facility] Comment on above: Performed By: #### L 100.0500 ####[facility] [address] [place], [address] Hematocrit (Bld) [Volume fraction] 30.8 % Low 40-54 [facility] Comment on above: Performed By: #### L 100.0500 ####[facility] [facility] [address] [place], [address] Hemoglobin (Bld) [Mass/Vol] 10.8 g/dL Low 13.0-16.5 [facility] Comment on above: Performed By: #### L 100.0500 ####[facility] [address] [place], [address] MCH (RBC) [Entitic mass] 27.5 pg Normal 27.0-32.0 [facility] Comment on above: Performed By: #### L 100.0500 ####[facility] [address] [place], [address] MCHC (RBC) [Mass/Vol] 35.1 g/dL Normal 32-36 [facility] Comment on above: Performed By: #### L 100.0500 ####[facility] [address] [place], [address] MCV (RBC) [Entitic vol] 78.4 fL Low 80-94 [facility] Comment on above: Performed By: #### L 100.0500 ####[facility] [address] [place], [address] Platelet mean volume (Bld) [Entitic vol] 10.7 fL Normal 6.2-12.0 [facility] Comment on above: Performed By: #### L 100.0500 ####[facility] [address] [place], [address] Platelets (Bld) [#/Vol] 221 10*3/uL Normal 150-450 [facility] Comment on above: Performed By: #### L 100.0500 ####[facility] [address] [place], [address] RBC (Bld) [#/Vol] 3.93 10*6/uL Low 4.6-6.2 [facility] Comment on above: Performed By: #### L 100.0500 ####[facility] [address] [place], [address] RDW SD 45.2 fl High 35.1-43.9 [facility] Comment on above: Performed By: #### L 100.0500 ####[facility] [address] [place], [address] WBC (Bld) [#/Vol] 20.7 10*3/uL High 4.4-11.0 [facility] Comment on above: Performed By: #### L 100.0500 ####[facility] [address] [place], [address] Consultation - Nephrologyon 05-05-2025 Consultation - Nephrology Normal [facility] Electrolyte Panelon 05-05-20 25 Chloride [Moles/Vol] 104 mmol/L Normal 98-108 [facility] Comment on above: Performed By: #### L 501.5200, L501.2300, L501.5294 ####[facility] [address] [place], [address] CO2 [Moles/Vol] 18.3 mmol/L Low 21.0-32.0 [facility] Comment on above: Performed By: #### L 501.5200, L501.2300, L501.5294 ####[facility] [address] [place], [address] GAP 13 Normal 5-15 [facility] Comment on above: Performed By: #### L 501.5200, L501.2300, L501.5294 ####[facility] [address] [place], [address] Potassium [Moles/Vol] 3.2 mmol/L Low 3.3-5.1 [facility] Comment on above: Performed By: #### L 501.5200, L501.2300, L501.5294 ####[facility] [address] [place], [address] Sodium [Moles/Vol] 135 mmol/L Normal 133-145 [facility] Comment on above: Performed By: #### L 501.5200, L501.2300, L501.5294 ####[facility] [address] [place], [address] Chloride [Moles/Vol] 104 mmol/L Normal 98-108 [facility] Comment on above: Performed By: #### L 501.5200, L501.5294, L501.2300 ####[facility] [address] [place], [address] CO2 [Moles/Vol] 17.3 mmol/L Low 21.0-32.0 [facility] Comment on above: Performed By: #### L 501.5200, L501.5294, L501.2300 ####[facility] [address] [place], [address] GAP 15 Normal 5-15 [facility] Comment on above: Performed By: #### L 501.5200, L501.5294, L501.2300 ####[facility] [address] [place], [address] Potassium [Moles/Vol] 3.2 mmol/L Low 3.3-5.1 [facility] Comment on above: Performed By: #### L 501.5200, L501.5294, L501.2300 ####[facility] [address] [place], [address] Sodium [Moles/Vol] 136 mmol/L Normal 133-145 [facility] Comment on above: Performed By: #### L 501.5200, L501.5294, L501.2300 ####[facility] [address] [place], [address] Lactic Acidon 05-05-2025 Lactate [Moles/Vol] mmol/L Normal 0.0-2.0 [facility] Comment on above: Order Comment: Y Performed By: #### L 503.6005 ####[facility] [address] [place], [address] Magnesiumon 05-05-2025 Magnesium [Mass/Vol] 2.4 mg/dL High 1.5-2.2 [facility] Comment on above: Performed By: #### L 501.5200, L501.2300, L501.5294 ####[facility] [address] [place], [address] Magnesium [Mass/Vol] 2.3 mg/dL High 1.5-2.2 [facility] Comment on above: Performed By: #### L 501.5200, L501.5294, L501.2300 ####[facility] [address] [place], [address] Magnesium [Mass/Vol] 2.4 mg/dL High 1.5-2.2 [facility] Comment on above: Performed By: #### L 501.5200, L500.3600 ####[facility] [address] [place], [address] Magnesium [Mass/Vol] 2.5 mg/dL High 1.5-2.2 [facility] Comment on above: Performed By: #### L 501.5200, L500.3600 ####[facility] [address] [place], [address] Magnesium [Mass/Vol] 2.6 mg/dL High 1.5-2.2 [facility] Comment on above: Performed By: #### L 500.2500, L501.5200, L500.3600 ####[facility] [address] [place], [address] Magnesium [Mass/Vol] 3.0 mg/dL High 1.5-2.2 [facility] Comment on above: Performed By: #### L 500.2500, L501.9520, L501.5200 ####[facility] [address] [place], [address] Osmolality, Serumon 10-10-20 25 OSMOLALITY,SER 320 mOsm/KG High 275-295 [facility] Comment on above: Performed By: #### L 501.2300, L505.5000, L501.7300 ####[facility] [address] [place], [address] Phosphoruson 05-05-2025 Phosphate [Mass/Vol] 3.6 mg/dL Normal 2.7-4.5 [facility] Comment on above: Performed By: #### L 501.5200, L501.2300, L501.5294 ####[facility] [address] [place], [address] Phosphate [Mass/Vol] 4.6 mg/dL High 2.7-4.5 [facility] Comment on above: Performed By: #### L 501.5200, L501.5294, L501.2300 ####[facility] [address] [place], [address] Phosphate [Mass/Vol] 5.3 mg/dL High 2.7-4.5 [facility] Comment on above: Performed By: #### L 501.2300 ####[facility] [address] [place], [address] Phosphate [Mass/Vol] 8.2 mg/dL High 2.7-4.5 [facility] Comment on above: Performed By: #### L 501.2300, L505.5000, L501.7300 ####[facility] [address] [place], [address] Procedure Reporton Procedure Report Normal [facility] Renal Profileon 05-05-2025 Albumin [Mass/Vol] 2.6 g/dL Low 3.5-5.0 [facility] Comment on above: Performed By: #### L 501.5200, L500.3600 ####[facility] [address] [place], [address] BUN/CRE 17.1 RATIO Normal 10-20 [facility] Comment on above: Performed By: #### L 501.5200, L500.3600 ####[facility] [address] [place], [address] Calcium [Mass/Vol] 7.2 mg/dL Low 7.6-11.0 [facility] Comment on above: Performed By: #### L 501.5200, L500.3600 ####[facility] [address] [place], [address] Chloride [Moles/Vol] 103 mmol/L Normal 98-108 [facility] Comment on above: Performed By: #### L 501.5200, L500.3600 ####[facility] [address] [place], [address] CO2 [Moles/Vol] 15.7 mmol/L Low 21.0-32.0 [facility] Comment on above: Performed By: #### L 501.5200, L500.3600 ####[facility] [address] [place], [address] Creatinine [Mass/Vol] 3.85 mg/dL High 0.70-1.20 [facility] Comment on above: Performed By: #### L 501.5200, L500.3600 ####[facility] [address] [place], [address] ECRCL 27.27 ml/min Low 50-250 [facility] Comment on above: Performed By: #### L 501.5200, L500.3600 ####[facility] [address] [place], [address] GAP 17 High 5-15 [facility] Comment on above: Performed By: #### L 501.5200, L500.3600 ####[facility] [address] [place], [address] GFR/1.73 sq M.predicted among non-blacks MDRD (S/P/Bld) [Vol rate/Area] 17 mL/min/{1.73_m2} Low >60 [facility] Comment on above: Result Comment: mL/m in/1.73m2 CKD-EPI Creatinine Equation (2020) Performed By: #### L 501.5200, L500.3600 ####[facility] [address] [place], [address] Glucose [Mass/Vol] 192 mg/dL High 70-99 [facility] Comment on above: Performed By: #### L 501.5200, L500.3600 ####[facility] [address] [place], [address] Phosphate [Mass/Vol] 5.4 mg/dL High 2.7-4.5 [facility] Comment on above: Performed By: #### L 501.5200, L500.3600 ####[facility] [address] [place], [address] Potassium [Moles/Vol] 3.2 mmol/L Low 3.3-5.1 [facility] Comment on above: Performed By: #### L 501.5200, L500.3600 ####[facility] [address] [place], [address] Sodium [Moles/Vol] 136 mmol/L Normal 133-145 [facility] Comment on above: Performed By: #### L 501.5200, L500.3600 ####[facility] [address] [place], [address] Urea nitrogen [Mass/Vol] 66 mg/dL High 4-19 [facility] Comment on above: Performed By: #### L 501.5200, L500.3600 ####[facility] [address] [place], [address] Albumin [Mass/Vol] 2.6 g/dL Low 3.5-5.0 [facility] Comment on above: Performed By: #### L 501.5200, L500.3600 ####[facility] [address] [place], [address] Performed By: #### L 500.2500, L501.5200, L500.3600 ####[facility] [address] [place], [address] BUN/CRE 18.5 RATIO Normal 10-20 [facility] Comment on above: Performed By: #### L 501.5200, L500.3600 ####[facility] [address] [place], [address] Calcium [Mass/Vol] 7.2 mg/dL Low 7.6-11.0 [facility] Comment on above: Performed By: #### L 501.5200, L500.3600 ####[facility] [address] [place], [address] Chloride [Moles/Vol] 102 mmol/L Normal 98-108 [facility] Comment on above: Performed By: #### L 501.5200, L500.3600 ####[facility] [address] [place], [address] Performed By: #### L 500.2500, L501.5200, L500.3600 ####[facility] [address] [place], [address] CO2 [Moles/Vol] 10.8 mmol/L Low 21.0-32.0 [facility] Comment on above: Performed By: #### L 501.5200, L500.3600 ####[facility] [address] [place], [address] Creatinine [Mass/Vol] 4.02 mg/dL High 0.70-1.20 [facility] Comment on above: Performed By: #### L 501.5200, L500.3600 ####[facility] [address] [place], [address] GAP 22 High 5-15 [facility] Comment on above: Performed By: #### L 501.5200, L500.3600 ####[facility] [address] [place], [address] GFR/1.73 sq M.predicted among non-blacks MDRD (S/P/Bld) [Vol rate/Area] 16 mL/min/{1.73_m2} Low >60 [facility] Comment on above: Result Comment: mL/m in/1.73m2 CKD-EPI Creatinine Equation (2020) Performed By: #### L 501.5200, L500.3600 ####[facility] [address] [place], [address] Glucose [Mass/Vol] 171 mg/dL High 70-99 [facility] Comment on above: Performed By: #### L 501.5200, L500.3600 ####[facility] [address] [place], [address] Phosphate [Mass/Vol] 6.1 mg/dL High 2.7-4.5 [facility] Comment on above: Performed By: #### L 501.5200, L500.3600 ####[facility] [address] [place], [address] Potassium [Moles/Vol] 3.7 mmol/L Normal 3.3-5.1 [facility] Comment on above: Result Comment: Hemo lysis present, Results??could be affected.?? Performed By: #### L 501.5200, L500.3600 ####[facility] [address] [place], [address] Sodium [Moles/Vol] 135 mmol/L Normal 133-145 [facility] Comment on above: Performed By: #### L 501.5200, L500.3600 ####[facility] [address] [place], [address] Urea nitrogen [Mass/Vol] 74 mg/dL High 4-19 [facility] Comment on above: Performed By: #### L 501.5200, L500.3600 ####[facility] [address] [place], [address] Thyroid Stim Hormone (TSH)on 05-05-2025 TSH 0.368 uIU/mL Normal 0.300-4.200 [facility] Comment on above: Performed By: #### L 500.2500, L501.9520, L501.5200 ####[facility] [address] [place], [address] Urine Drug Screen (VISTA)on 05-05-2025 AMPHETAMINES Negative Normal <1000 ng/mL [facility] Comment on above: Performed By: #### L 501.2300, L505.5000, L501.7300 ####[facility] [address] [place], [address] BARBITIURATES Negative Normal < 200 ng/mL [facility] Comment on above: Performed By: #### L 501.2300, L505.5000, L501.7300 ####[facility] [address] [place], [address] BENZODIAZIPINE Negative Normal < 200 ng/mL [facility] Comment on above: Performed By: #### L 501.2300, L505.5000, L501.7300 ####[facility] [address] [place], [address] BUP Ur Drug Scr Negative Normal < 200 ng/mL [facility] Comment on above: Performed By: #### L 501.2300, L505.5000, L501.7300 ####[facility] [address] [place], [address] COCAINE Negative Normal < 300 ng/mL [facility] Comment on above: Performed By: #### L 501.2300, L505.5000, L501.7300 ####[facility] [address] [place], [address] Fentanyl Negative Normal <5 ng/mL [facility] Comment on above: Result Comment: CONF IRMATORY [...] Performed By: #### L 501.2300, L505.5000, L501.7300 ####[facility] [address] [place], [address] METHADONE Negative Normal < 300 ng/mL [facility] Comment on above: Performed By: #### L 501.2300, L505.5000, L501.7300 ####[facility] [address] [place], [address] OPIATES Negative Normal < 300 ng/mL [facility] Comment on above: Performed By: #### L 501.2300, L505.5000, L501.7300 ####[facility] [address] [place], [address] OXYCODONE Negative Normal < 100 ng/mL [facility] Comment on above: Performed By: #### L 501.2300, L505.5000, L501.7300 ####[facility] [address] [place], [address] PCP Negative Normal < 25 ng/mL [facility] Comment on above: Performed By: #### L 501.2300, L505.5000, L501.7300 ####[facility] [address] [place], [address] THC Negative Normal < 50 ng/mL [facility] Comment on above: Performed By: #### L 501.2300, L505.5000, L501.7300 ####[facility] [address] [place], [address] Abdomen/Pelvis without Conto n 05-04-2025 Abdomen/Pelvis without Cont Normal [facility] Alcohol, Blood (Medical)-Ser umon 05-04-2025 SERUM ETOH < 10.1 Normal <=10.0 [facility] Comment on above: Result Comment: This test is for medical purposes only. The legaldefinition of intoxication varies according to local law. Performed By: #### L 501.9100 ####[facility] [address] [place], [address] Basic Metabolic Profile (BMP )on 05-04-2025 BUN/CRE 17.9 RATIO Normal - [facility] Comment on above: Performed By: #### L 500.2500 ####[facility] [address] [place], [address] Calcium [Mass/Vol] 7.0 mg/dL Low 7.6-11.0 [facility] Comment on above: Performed By: #### L 500.2500 ####[facility] [address] [place], [address] Chloride [Moles/Vol] 100 mmol/L Normal 98-108 [facility] Comment on above: Performed By: #### L 500.2500 ####[facility] [address] [place], [address] CO2 [Moles/Vol] 5.4 mmol/L Invalid Interpretation Code 21.0-32.0 [facility] Comment on above: Result Comment: Crit ical Result(s) Called at: 2217 by: SHELDON DEVRIES TO CHRISTIAN??Results read back by same. Performed By: #### L 500.2500 ####[facility] [address] [place], [address] Creatinine [Mass/Vol] 5.74 mg/dL High 0.70-1.20 [facility] Comment on above: Performed By: #### L 500.2500 ####[facility] [address] [place], [address] ECRCL 18.22 ml/min Low 50-250 [facility] Comment on above: Performed By: #### L 500.2500 ####[facility] [address] [place], [address] GAP 24 High 5-15 [facility] Comment on above: Performed By: #### L 500.2500 ####[facility] [address] [place], [address] GFR/1.73 sq M.predicted among non-blacks MDRD (S/P/Bld) [Vol rate/Area] 11 mL/min/{1.73_m2} Low >60 [facility] Comment on above: Result Comment: mL/m in/1.73m2 CKD-EPI Creatinine Equation (2020) Performed By: #### L 500.2500 ####[facility] [address] [place], [address] Glucose [Mass/Vol] 355 mg/dL High 70-99 [facility] Comment on above: Performed By: #### L 500.2500 ####[facility] [address] [place], [address] Potassium [Moles/Vol] 5.1 mmol/L Normal 3.3-5.1 [facility] Comment on above: Performed By: #### L 500.2500 ####[facility] [address] [place], [address] Sodium [Moles/Vol] 129 mmol/L Low 133-145 [facility] Comment on above: Performed By: #### L 500.2500 ####[facility] [address] [place], [address] Urea nitrogen [Mass/Vol] 103 mg/dL Invalid Interpretation Code 4-19 [facility] Comment on above: Result Comment: Crit ical Result(s) Called at: by:??[facility] Result(s) Called at: 2217 by: [facility]??Results read back by same. Performed By: #### L 500.2500 ####[facility] [address] [place], [address] BUN/CRE 17.9 RATIO Normal 10-20 [facility] Comment on above: Performed By: #### L 500.2500 ####[facility] [address] [place], [address] Calcium [Mass/Vol] 7.2 mg/dL Low 7.6-11.0 [facility] Comment on above: Performed By: #### L 500.2500 ####[facility] [address] [place], [address] Chloride [Moles/Vol] 101 mmol/L Normal 98-108 [facility] Comment on above: Performed By: #### L 500.2500 ####[facility] [address] [place], [address] CO2 [Moles/Vol] 4.4 mmol/L Invalid Interpretation Code 21.0-32.0 [facility] Comment on above: Result Comment: Crit ical Result(s) Called at: 1806 by:??SHELDON ESCOBEDO Results read back by same. Performed By: #### L 500.2500 ####[facility] [address] [place], [address] Creatinine [Mass/Vol] 5.46 mg/dL High 0.70-1.20 [facility] Comment on above: Performed By: #### L 500.2500 ####[facility] [address] [place], [address] ECRCL 19.06 ml/min Low 50-250 [facility] Comment on above: Performed By: #### L 500.2500 ####[facility] [address] [place], [address] GAP 27 High 5-15 [facility] Comment on above: Performed By: #### L 500.2500 ####[facility] [address] [place], [address] GFR/1.73 sq M.predicted among non-blacks MDRD (S/P/Bld) [Vol rate/Area] 11 mL/min/{1.73_m2} Low >60 [facility] Comment on above: Result Comment: mL/m in/1.73m2 CKD-EPI Creatinine Equation (2020) Performed By: #### L 500.2500 ####[facility] [address] [place], [address] Glucose [Mass/Vol] 227 mg/dL High 70-99 [facility] Comment on above: Performed By: #### L 500.2500 ####[facility] [address] [place], [address] Potassium [Moles/Vol] 4.8 mmol/L Normal 3.3-5.1 [facility] Comment on above: Performed By: #### L 500.2500 ####[facility] [address] [place], [address] Sodium [Moles/Vol] 133 mmol/L Normal 133-145 [facility] Comment on above: Performed By: #### L 500.2500 ####[facility] [address] [place], [address] Urea nitrogen [Mass/Vol] 98 mg/dL High 4-19 [facility] Comment on above: Performed By: #### L 500.2500 ####[facility] [address] [place], [address] CO2 [Moles/Vol] 2.9 mmol/L Invalid Interpretation Code 21.0-32.0 [facility] Comment on above: Result Comment: Crit ical Result(s) Called at: 1417 05/04/2025 by:MISAEL??Results read back by same.Critical Result(s) Called at: 1417 05/04/2025 by:MISAEL??Results read back by same.Critical Result(s) Called at: by:??Results read back bysame. AMENDED REPORT 05/04/25 1435 CO2 previously reported as: 2.9 *L mmol/LCritical Result(s) Called at: 1417 05/04/2025 by:MISAEL??Results read back by same. Performed By: #### L 100.0100, L500.2500 ####[facility] [address] [place], [address] GAP 29 High 5-15 [facility] Comment on above: Result Comment: AMENDED REPORT 05/04/25 1435 GAP previously reported as: 29 H Performed By: #### L 100.0100, L500.2500 ####[facility] [address] [place], [address] Bedside Glucoseon 05-04-2025 FINGERSTICK GLU 261 mg/dL High 74-106 [facility] Comment on above: Result Comment: KIANA GEMENT OF PATIENT CARE PER NURSING PROTOCOL Performed By: #### L 501.080 ####[facility] [address] [place], [address] FINGERSTICK GLU 253 mg/dL High 74-106 [facility] Comment on above: Result Comment: KIANA GEMENT OF PATIENT CARE PER NURSING PROTOCOL Performed By: #### L 501.080 ####[facility] [address] [place], [address] FINGERSTICK GLU 111 mg/dL High 74-106 [facility] Comment on above: Result Comment: KIANA GEMENT OF PATIENT CARE PER NURSING PROTOCOL Performed By: #### L 501.080 ####[facility] [address] [place], [address] Beta-Hydroxbytyrateon 2024 BETA-HYDROXYBUT 2.9 mmol/L High 0.0-0.3 [facility] Comment on above: Performed By: #### L 501.5500, L502.0300, L509.7001, L501.9985, L501.6901 ####[facility] [address] [place], [address] Blood Gases by CPSon 025 Base excess Calc (Bld) [Moles/Vol] -27 mmol/L Low -2 to +2 [facility] Comment on above: Performed By: #### L 9000.0800 ####[facility] [address] [place], [address] Blood Gas Type ART Normal [facility] Comment on above: Performed By: #### L 9000.0800 ####[facility] [address] [place], [address] CO2 [Moles/Vol] 7 mmol/L Normal [facility] Comment on above: Performed By: #### L 9000.0800 ####[facility] [address] [place], [address] FI02 30.0 Normal [facility] Comment on above: Performed By: #### L 9000.0800 ####[facility] [address] [place], [address] HCO3 (Bld) [Moles/Vol] 6.2 mmol/L Low 22-26 [facility] Comment on above: Performed By: #### L 9000.0800 ####[facility] [address] [place], [address] Mode AC Normal [facility] Comment on above: Performed By: #### L 9000.0800 ####[facility] [address] [place], [address] O2 Delivery Dev Adult Vent Normal [facility] Comment on above: Performed By: #### L 9000.0800 ####[facility] [address] [place], [address] pCO2 32.5 mmHg Low 35-45 [facility] Comment on above: Performed By: #### L 9000.0800 ####[facility] [address] [place], [address] PEEP 5 Normal [facility] Comment on above: Performed By: #### L 9000.0800 ####[facility] [address] [place], [address] pH (Bld) 6.89 [pH] Invalid Interpretation Code 7.35-7.45 [facility] Comment on above: Performed By: #### L 9000.0800 ####[facility] [address] [place], [address] PO2 86 mmHG Normal 75-100 [facility] Comment on above: Performed By: #### L 9000.0800 ####[facility] [address] [place], [address] Read Back By Yes [facility] Comment on above: Performed By: #### L 9000.0800 ####[facility] [address] [place], [address] Results To mosteller [facility] Comment on above: Performed By: #### L 8999.0800 ####[facility] [address] [place], [address] RR 24 Normal [facility] Comment on above: Performed By: #### L 8999.0800 ####[facility] [address] [place], [address] SITE R Brach Normal [facility] Comment on above: Performed By: #### L 8999.0800 ####[facility] [address] [place], [address] SO2 86 Low 95-99 [facility] Comment on above: Performed By: #### L 8999.0800 ####[facility] [address] [place], [address] Time Given 18:08:41 [facility] Comment on above: Performed By: #### L 8999.0800 ####[facility] [address] [place], [address] Vt 450.0 mL Normal [facility] Comment on above: Performed By: #### L 8999.0800 ####[facility] [address] [place], [address] BRADLY TEST Positive Normal [facility] Comment on above: Performed By: #### L 8999.0800 ####[facility] [address] [place], [address] BE < -30 Low -2 to +2 [facility] Comment on above: Performed By: #### L 8999.0800 ####[facility] [address] [place], [address] Blood Gas Type ART Normal [facility] Comment on above: Performed By: #### L 8999.0800 ####[facility] [address] [place], [address] CO2 [Moles/Vol] 5 mmol/L Normal [facility] Comment on above: Performed By: #### L 9000.0800 ####[facility] [address] [place], [address] FI02 35.0 Normal [facility] Comment on above: Performed By: #### L 9000.0800 ####[facility] [address] [place], [address] HCO3 (Bld) [Moles/Vol] 4.2 mmol/L Low 22-26 [facility] Comment on above: Performed By: #### L 9000.0800 ####[facility] [address] [place], [address] Mode AC Normal [facility] Comment on above: Performed By: #### L 9000.0800 ####[facility] [address] [place], [address] O2 Delivery Dev Adult Vent Normal [facility] Comment on above: Performed By: #### L 9000.0800 ####[facility] [address] [place], [address] pCO2 26.9 mmHg Low 35-45 [facility] Comment on above: Performed By: #### L 9000.0800 ####[facility] [address] [place], [address] PEEP 5 Normal [facility] Comment on above: Performed By: #### L 9000.0800 ####[facility] [address] [place], [address] pH (Bld) 6.80 [pH] Invalid Interpretation Code 7.35-7.45 [facility] Comment on above: Performed By: #### L 9000.0800 ####[facility] [address] [place], [address] PO2 105 mmHG High 75-100 [facility] Comment on above: Performed By: #### L 9000.0800 ####[facility] [address] [place], [address] Read Back By Yes [facility] Comment on above: Performed By: #### L 9000.0800 ####[facility] [address] [place], [address] Results To mostetler [facility] Comment on above: Performed By: #### L 9000.0800 ####[facility] [address] [place], [address] RR 12 Normal [facility] Comment on above: Performed By: #### L 9000.0800 ####[facility] [address] [place], [address] SITE R Brach [facility] Comment on above: Performed By: #### L 9000.0800 ####[facility] [address] [place], [address] SO2 89 Low 95-99 [facility] Comment on above: Performed By: #### L 9000.0800 ####[facility] [address] [place], [address] Time Given 15:47:52 [facility] Comment on above: Performed By: #### L 9000.0800 ####[facility] [address] [place], [address] Vt 450.0 mL [facility] Comment on above: Performed By: #### L 9000.0800 ####[facility] [address] [place], [address] BE < -30 Low -2 to +2 [facility] Comment on above: Performed By: #### L 9000.0800 ####[place] [facility] [address] [place], [address] Blood Gas Type ART Normal [facility] Comment on above: Performed By: #### L 8999.0800 ####[facility] [address] [place], [address] FI02 3.0 [facility] Comment on above: Performed By: #### L 8999.0800 ####[facility] [address] [place], [address] HCO3 (Bld) [Moles/Vol] 1.5 mmol/L Low 22-26 [facility] Comment on above: Performed By: #### L 8999.0800 ####[facility] [address] [place], [address] Mode Not entered Normal [facility] Comment on above: Performed By: #### L 0.0800 ####[facility] [address] [place], [address] O2 Delivery Dev Cannula Normal [facility] Comment on above: Performed By: #### L 8999.0800 ####[facility] [address] [place], [address] pCO2 7.2 mmHg Invalid Interpretation Code 35-45 [facility] Comment on above: Performed By: #### L 8999.0800 ####[facility] [address] [place], [address] pH (Bld) 6.93 [pH] Invalid Interpretation Code 7.35-7.45 [facility] Comment on above: Performed By: #### L 8999.0800 ####[facility] [address] [place], [address] PO2 148 mmHG High 75-100 [facility] Comment on above: Performed By: #### L 0.0800 ####[facility] [address] [place], [address] Read Back By Yes Normal [facility] Comment on above: Performed By: #### L 9000.0800 ####[facility] [address] [place], [address] Results To jw Normal [facility] Comment on above: Performed By: #### L 9000.0800 ####[facility] [address] [place], [address] SITE R Brach Normal [facility] Comment on above: Performed By: #### L 9000.0800 ####[facility] [address] [place], [address] SO2 97 Normal 95-99 [facility] Comment on above: Performed By: #### L 9000.0800 ####[facility] [address] [place], [address] Time Given 13:13:02 Normal [facility] Comment on above: Performed By: #### L 9000.0800 ####[facility] [address] [place], [address] TOTAL CO2 < 5 Normal [facility] Comment on above: Performed By: #### L 9000.0800 ####[facility] [address] [place], [address] CBC W/Diff, Automatedon 10-0 PATH REV May foll Normal [facility] Comment on above: Performed By: #### L 100.0100, L500.2500 ####[facility] [address] [place], [address] PLT EST ADEQUATE Normal ADEQ [facility] Comment on above: Performed By: #### L 100.0100, L500.2500 ####[facility] [address] [place], [address] SMEAR COMMENT SCANNED Normal [facility] Comment on above: Performed By: #### L 100.0100, L500.2500 ####[facility] [address] [place], [address] CPK Total, Creatine Kinaseon 05-04-2025 CPK TOTAL 76 U/L Normal 24-195 [facility] Comment on above: Order Comment: Comme nts: DC when propofol is d/c'd Performed By: #### L 501.5000, L501.3620 ####[facility] [address] [place], [address] Chest 1 Viewon 05-04-2025 Chest 1 View Normal [facility] Chest 1 View (Portable)on Chest 1 View (Portable) Normal [facility] Chest 1 View (Portable) Normal [facility] Chest 1 View (Portable) Normal [facility] Chest 1 View (Portable) Normal [facility] Consultation - Intensiviston 05-04-2025 Consultation - Mud Boss Normal [facility] Creatinine, Urineon 05-04-20 25 URINE CREAT 56.00 mg/dL Normal 39.00-259.0 0 [facility] Comment on above: Performed By: #### L 501.5500, L502.0300, L509.7001, L501.9985, L501.6901 ####[facility] [address] [place], [address] Emergency Department Summary on 05-04-2025 Emergency Department Summary Normal [facility] H AND P Exam - Hospitaliston 05-04-2025 H&P Exam - Hospitalist Normal [facility] Hemoglobin A1con 05-04-2025 HbA1c (Bld) [Mass fraction] 6.6 % High <=5.6 [facility] Comment on above: Result Comment: Norm al < 5.7 % Prediabetic 5.7 - 6.4 % Diabetic >or= 6.5 % Please note range changes. Performed By: #### L 501.5500, L502.0300, L509.7001, L501.9985, L501.6901 ####[facility] [address] [place], [address] L501.4021on 05-04-2025 Trop T High Sen 24 ng/L High <=22 [facility] Comment on above: Performed By: #### L 501.4021 ####[facility] [address] [place], [address] L509.7001on 05-04-2025 Procalcitonin 26.50 ng/mL High <=0.10 [facility] Comment on above: Result Comment: Inte rpretation:<0.10-0.25 [...] #### L 501.5500, L502.0300, L509.7001, L501.9985, L501.6901 ####[facility] [address] [place], [address] Lactic Acidon 05-04-2025 Lactate [Moles/Vol] 1.1 mmol/L Normal 0.0-2.0 [facility] Comment on above: Performed By: #### L 503.6005 ####[facility] [address] [place], [address] Lactate [Moles/Vol] 2.2 mmol/L Invalid Interpretation Code 0.0-2.0 [facility] Comment on above: Order Comment: Y Result Comment: Crit ical Result(s) Called at: 1453 by: SHELDON YOUSSEF??Results read back by same. Performed By: #### L 503.6005 ####[facility] [address] [place], [address] Legionella Antigen Urineon 1 LEGU Normal [facility] Comment on above: Performed By: #### M 300.4600, M300.4500 ####[facility] [address] [place], [address] M100.678on 05-04-2025 M100.678 Pending SARS-CoV-2 (COVID 19) Negative INFLUENZA A Negative INFLUENZA B Negative RSV PCR Negative Normal [facility] Comment on above: Performed By: #### M 100.678 ####[facility] [address] [place], [address] M8200.1000on 05-04-2025 M8200.1000 Negative Normal [facility] Comment on above: Performed By: #### M 8200.1000 ####[facility] [address] [place], [address] Partial Thromboplast Timeon 05-04-2025 aPTT Coag (Bld) [Time] 32.4 s Normal 24.1-36.2 [facility] Comment on above: Performed By: #### L 300.4310, L300.3900 ####[facility] [address] [place], [address] Procedure Reporton Procedure Report Normal [facility] Prothrombin Time w/INRon INR Coag (PPP) [Relative time] 1.9 {INR} Normal [facility] Comment on above: Performed By: #### L 300.4310, L300.3900 ####[facility] [address] [place], [address] PT Coag (PPP) [Time] 21.7 s High 11.7-14.9 [facility] Comment on above: Performed By: #### L 300.4310, L300.3900 ####[facility] [address] [place], [address] RESPIRATORY PANEL MOLECULARo n 05-04-2025 RP PANEL Normal [facility] Comment on above: Performed By: #### M 100.638 ####[facility] [address] [place], [address] Strep pneumoniae Antig(UR,CS F)on 05-04-2025 STPAG Normal [facility] Comment on above: Performed By: #### M 300.4600, M300.4500 ####[facility] [address] [place], [address] Triglycerideson 05-04-2025 Triglyceride [Mass/Vol] 258 mg/dL High [facility] Comment on above: Order Comment: Comme nts: DC when propofol is d/c'dDC when propofol is d/c'd Result Comment: The drugs N-Acetylcysteine and Metamizole may falselydepress this assay.Normal range: <150 mg/dLBorderline High: 150-199 mg/dLHigh: 200-499 mg/dLVery High: >500 mg/dL Performed By: #### L 501.5000, L501.3620 ####[facility] [address] [place], [address] Troponin T HS 2 HRon 025 Trop T High Sen 23 ng/L High <=22 [facility] Comment on above: Performed By: #### L 499.0042 ####[facility] [address] [place], [address] Trop T High Sen Normal <=22 [facility] Comment on above: Result Comment: [place], COMPLETED @7643 Performed By: #### L 499.0042 ####[facility] [address] [place], [address] Troponin T HS 4 HRon 025 Trop T High Sen 26 ng/L High <=22 [facility] Comment on above: Performed By: #### L 499.0043 ####[facility] [address] [place], [address] Urinalysis, Completeon 05-04 BACTERIA 1+ /hpf Normal None Seen [facility] Comment on above: Order Comment: COLLE CTOR TO SPECIFY Performed By: #### L 400.0001 ####[facility] [address] [place], [address] RBC 25-50 SEEN Normal 0-5 [facility] Comment on above: Order Comment: COLLE CTOR TO SPECIFY Performed By: #### L 400.0001 ####[facility] [address] [place], [address] WBC 25-50 SEEN Normal 0-5 [facility] Comment on above: Order Comment: COLLE CTOR TO SPECIFY Performed By: #### L 400.0001 ####[facility] [address] [place], [address] EPI,SQUAMOUS 0 SEEN Normal [address] [place] [address] Comment on above: Order Comment: COLLE CTOR TO SPECIFY Performed By: #### L 400.0001 ####[facility] [address] [place], [address] Mucus Ql (Urine sed) 0 SEEN Normal [facility] Comment on above: Order Comment: COLLE CTOR TO SPECIFY Performed By: #### L 400.0001 ####[facility] [address] [place], [address] Urine Sodiumon 05-04-2025 Sodium (U) [Moles/Vol] 78 mmol/L Normal Not Establ. [facility] Comment on above: Performed By: #### L 501.5500, L502.0300, L509.7001, L501.9985, L501.6901 ####[facility] [address] [place], [address] Elbow min 3 Viewson 01-23- 25 Elbow min 3 Views Normal [facility] Absolute lymphocyte countOrd ered By: Monroe Lorna on 12-06-2024 Lymphocytes Auto (Unsp spec) [#/Vol] 1.64 10*3/uL 0.83-4.51 [facility] Absolute neutrophil countOrd ered By: Monroe Rothman on 12-06-2024 Neutrophils (Bld) [#/Vol] 3.5 10*3/uL 2.0-7.7 [facility] Anion gap in Serum or Plasma Ordered By: Monroe Rothman on 12-06-2024 Anion gap [Moles/Vol] 11 mmol/L 5- [facility] Automated lymphocyte count a s percentage of total leukocytesOrdered By: Monroe Rothman on 12-06-2024 Lymphocytes/100 WBC Auto (Unsp spec) 28.2 % 19- [facility] BUN/creatinine ratioOrdered By: Monroe Rothman on 12-06-2024 Urea nitrogen/Creatinine [Mass ratio] 15.0 mg/mg 10- [facility] Basophil percentageOrdered B y: Monroe Rothman on 12-06-2024 Basophils/100 WBC (Bld) 0.7 % 0-1 [facility] Bilirubin, totalOrdered By: Monroe Rothman on 12-06-2024 Bilirubin [Mass/Vol] mg/dL 0.00-1.30 [facility] CBC W/Diff, Automatedon 11-24 Absolute Lymph 1.64 X10 3/uL Normal 0.83-4.51 [facility] Comment on above: Order Comment: Order Date: 12/06/24Order Info: 0184-1 - CBCD Performed By: #### L 501.9520, L501.9985, L500.4100, L100.0100, L501.9910, L500.4050 ####[facility] [address] [place], [place], [address] Absolute Neut 3.5 X10 3/uL Normal 2.0-7.7 [facility] Comment on above: Order Comment: Order Date: 12/06/24Order Info: 0184-1 - CBCD Performed By: #### L 501.9520, L501.9985, L500.4100, L100.0100, L501.9910, L500.4050 ####[facility] [address] [place], [address] Basophils/100 WBC (Bld) 0.7 % Normal 0-1 [facility] Comment on above: Order Comment: Order Date: 12/06/24Order Info: 0184-1 - CBCD Performed By: #### L 501.9520, L501.9985, L500.4100, L100.0100, L501.9910, L500.4050 ####[facility] [address], [address] Eosinophils/100 WBC (Bld) 2.4 % Normal 0-5 [facility] Comment on above: Order Comment: Order Date: 12/06/24Order Info: 0184-1 - CBCD Performed By: #### L 501.9520, L501.9985, L500.4100, L100.0100, L501.9910, L500.4050 ####[facility] [address] [facility] [place], [address] Erythrocyte distribution width (RBC) [Ratio] 13.7 % Normal 11.6-14.6 [facility] Comment on above: Order Comment: Order Date: 12/06/24Order Info: 0184-1 - CBCD Performed By: #### L 501.9520, L501.9985, L500.4100, L100.0100, L501.9910, L500.4050 ####[facility] [address] [place], [address] Hematocrit (Bld) [Volume fraction] 35.5 % Low 40-54 [facility] Comment on above: Order Comment: Order Date: 12/06/24Order Info: 0184-1 - CBCD Performed By: #### L 501.9520, L501.9985, L500.4100, L100.0100, L501.9910, L500.4050 ####[facility] [address], [address] Hemoglobin (Bld) [Mass/Vol] 12.2 g/dL Low 13.0-16.5 [facility] Comment on above: Order Comment: Order Date: 12/06/24Order Info: 0184-1 - CBCD Performed By: #### L 501.9520, L501.9985, L500.4100, L100.0100, L501.9910, L500.4050 ####[facility] [address], [address] IG% 0.300 Normal 0.0-0.9 [facility] Comment on above: Order Comment: Order Date: 12/06/24Order Info: 0184-1 - CBCD Result Comment: IG% - Immature Granulocytes (promyelocytes, myelocytes andmetamyelocytes) > 1% indicates that a LEFT SHIFT is Present. Performed By: #### L 501.9520, L501.9985, L500.4100, L100.0100, L501.9910, L500.4050 ####[facility] [address] [place], [address] Lymphocytes/100 WBC (Bld) 28.2 % Normal 19-41 [facility] Comment on above: Order Comment: Order Date: 12/06/24Order Info: 0184-1 - CBCD Performed By: #### L 501.9520, L501.9985, L500.4100, L100.0100, L501.9910, L500.4050 ####[facility] [address] [place], [address] MCH (RBC) [Entitic mass] 30.0 pg Normal 27.0-32.0 [facility] Comment on above: Order Comment: Order Date: 12/06/24Order Info: 0184-1 - CBCD Performed By: #### L 501.9520, L501.9985, L500.4100, L100.0100, L501.9910, L500.4050 ####[facility] [address] [place], [address] MCHC (RBC) [Mass/Vol] 34.4 g/dL Normal 32-36 [facility] Comment on above: Order Comment: Order Date: 12/06/24Order Info: 0184-1 - CBCD Performed By: #### L 501.9520, L501.9985, L500.4100, L100.0100, L501.9910, L500.4050 ####[facility] [facility] [address] [place], [address] MCV (RBC) [Entitic vol] 87.2 fL Normal 80-94 [facility] Comment on above: Order Comment: Order Date: 12/06/24Order Info: [id number] - CBCD Performed By: #### L 501.9520, L501.9985, L500.4100, L100.0100, L501.9910, L500.4050 ####[facility] [address] [place], [address] Monocytes/100 WBC (Bld) 8.1 % Normal 0-10 [facility] Comment on above: Order Comment: Order Date: 12/06/24Order Info: [id number] - CBCD Performed By: #### L 501.9520, L501.9985, L500.4100, L100.0100, L501.9910, L500.4050 ####[facility] [address] [place], [address] Neutrophils/100 WBC (Bld) 60.3 % Normal 47-70 [facility] Comment on above: Order Comment: Order Date: 12/06/24Order Info: [id number] - CBCD Performed By: #### L 501.9520, L501.9985, L500.4100, L100.0100, L501.9910, L500.4050 ####[facility] [address] [place], [address] Nucleated RBC (Bld) [#/Vol] 0 10*3/uL Normal 0-5 [facility] Comment on above: Order Comment: Order Date: 12/06/24Order Info: [id number] - CBCD Performed By: #### L 501.9520, L501.9985, L500.4100, L100.0100, L501.9910, L500.4050 ####[facility] [address] [place], [address] Platelet mean volume (Bld) [Entitic vol] 10.0 fL Normal 6.2-12.0 [facility] Comment on above: Order Comment: Order Date: 12/06/24Order Info: [id number] - CBCD Performed By: #### L 501.9520, L501.9985, L500.4100, L100.0100, L501.9910, L500.4050 ####[facility] [address] [place], [address] Platelets (Bld) [#/Vol] 221 10*3/uL Normal 150-450 [facility] Comment on above: Order Comment: Order Date: 12/06/24Order Info: [id number] - CBCD Performed By: #### L 501.9520, L501.9985, L500.4100, L100.0100, L501.9910, L500.4050 ####[facility] [address] [place], [address] RBC (Bld) [#/Vol] 4.07 10*6/uL Low 4.6-6.2 [facility] Comment on above: Order Comment: Order Date: 12/06/24Order Info: [id number] - CBCD Performed By: #### L 501.9520, L501.9985, L500.4100, L100.0100, L501.9910, L500.4050 ####[facility] [address] [place], [address] RDW SD 43.5 fl Normal 35.1-43.9 [facility] Comment on above: Order Comment: Order Date: 12/06/24Order Info: [id number] - CBCD Performed By: #### L 501.9520, L501.9985, L500.4100, L100.0100, L501.9910, L500.4050 ####[facility] [address] [place], [address] WBC (Bld) [#/Vol] 5.8 10*3/uL Normal 4.4-11.0 [facility] Comment on above: Order Comment: Order Date: 12/06/24Order Info: [id number] - CBCD Performed By: #### L 501.9520, L501.9985, L500.4100, L100.0100, L501.9910, L500.4050 ####[facility] [address] [facility] [place], [place], [address] Calculated very low density lipoprotein (VLDL) cholesterol measurementOrdered By: Monroe Rothman on 12-06-2024 Calculated very low density lipoprotein (VLDL) cholesterol measurement 44 mg/dL High 5-40 [facility] Carbon dioxide, total [Moles /volume] in Central venous bloodOrdered By: Monroe Rothman on 12-06-2024 CO2 [Moles/Vol] 17.6 mmol/L Low 21.0-32.0 [facility] Chloride assayOrdered By: Daniel Rothman on 12-06-2024 Chloride [Moles/Vol] 112 mmol/L High 98-108 [facility] Comprehensive Metabolic Prof ilon 12-06-2024 Albumin [Mass/Vol] 4.1 g/dL Normal 3.5-5.0 [facility] Comment on above: Order Comment: Order Date: 12/06/24Order Info: [id number] - CMPOrder Info: - LIPIDOrder Info: [id number] - TSHOrder Info: [id number] - PSA Performed By: #### L 501.9520, L501.9985, L500.4100, L100.0100, L501.9910, L500.4050 ####[facility] [address] [place], [address] Albumin/Globulin [Mass ratio] 1.6 {ratio} Normal 0.9-2.4 [facility] Comment on above: Order Comment: Order Date: 12/06/24Order Info: [id number] - CMPOrder Info: - LIPIDOrder Info: [id number] - TSHOrder Info: [id number] - PSA Performed By: #### L 501.9520, L501.9985, L500.4100, L100.0100, L501.9910, L500.4050 ####[facility] [address] [place], [address] ALK PHOS 95 U/L Normal 40-129 [facility] Comment on above: Order Comment: Order Date: 12/06/24Order Info: [id number] - CMPOrder Info: - LIPIDOrder Info: [id number] - TSHOrder Info: [id number] - PSA Performed By: #### L 501.9520, L501.9985, L500.4100, L100.0100, L501.9910, L500.4050 ####[facility] [address] [place], [address] ALT [Catalytic activity/Vol] 14 U/L Normal <=46 [facility] Comment on above: Order Comment: Order Date: 12/06/24Order Info: [id number] - CMPOrder Info: - LIPIDOrder Info: [id number] - TSHOrder Info: [id number] - PSA Performed By: #### L 501.9520, L501.9985, L500.4100, L100.0100, L501.9910, L500.4050 ####[facility] [address] [place], [address] AST [Catalytic activity/Vol] 17 U/L Normal <=37 [facility] Comment on above: Order Comment: Order Date: 12/06/24Order Info: [id number] - CMPOrder Info: [id number] - LIPIDOrder Info: [id number] - TSHOrder Info: [id number] - PSA Performed By: #### L 501.9520, L501.9985, L500.4100, L100.0100, L501.9910, L500.4050 ####[facility] [address] [place], [address] BUN/CRE 15.0 RATIO Normal 10-20 [facility] Comment on above: Order Comment: Order Date: 12/06/24Order Info: [id number]- - CMPOrder Info: [id number] - LIPIDOrder Info: 3 - TSHOrder Info: [id number] - PSA Performed By: #### L 501.9520, L501.9985, L500.4100, L100.0100, L501.9910, L500.4050 ####[facility] [address] [place], [address] Calcium [Mass/Vol] 8.7 mg/dL Normal 7.6-11.0 [facility] Comment on above: Order Comment: Order Date: 12/06/24Order Info: 07- - CMPOrder Info: [id number] - LIPIDOrder Info: [id number] - TSHOrder Info: [id number] - PSA Performed By: #### L 501.9520, L501.9985, L500.4100, L100.0100, L501.9910, L500.4050 ####[facility] [address] [place], [address] Chloride [Moles/Vol] 112 mmol/L High 98-108 [facility] Comment on above: Order Comment: Order Date: 12/06/24Order Info: 86-1 - CMPOrder Info: [id number] - LIPIDOrder Info: 3 - TSHOrder Info: [id number] - PSA Performed By: #### L 501.9520, L501.9985, L500.4100, L100.0100, L501.9910, L500.4050 ####[facility] [address] [place], [address] CO2 [Moles/Vol] 17.6 mmol/L Low 21.0-32.0 [facility] Comment on above: Order Comment: Order Date: 12/06/24Order Info: [id number] - CMPOrder Info: [id number] - LIPIDOrder Info: [id number] - TSHOrder Info: [id number]- - PSA Performed By: #### L 501.9520, L501.9985, L500.4100, L100.0100, L501.9910, L500.4050 ####[facility] [address] [place], [place], [address] Creatinine [Mass/Vol] 1.76 mg/dL High 0.70-1.20 [facility] Comment on above: Order Comment: Order Date: 12/06/24Order Info: 785- - CMPOrder Info: [id number] - LIPIDOrder Info: 3 - TSHOrder Info: [id number] - PSA Performed By: #### L 501.9520, L501.9985, L500.4100, L100.0100, L501.9910, L500.4050 ####[facility] [address] [place], [address] GAP 11 Normal 5-15 [facility] Comment on above: Order Comment: Order Date: 12/06/24Order Info: 86-1 - CMPOrder Info: [id number] - LIPIDOrder Info: 3 - TSHOrder Info: [id number] - PSA Performed By: #### L 501.9520, L501.9985, L500.4100, L100.0100, L501.9910, L500.4050 ####[facility] [address] [place], [place], [address] GFR/1.73 sq M.predicted among non-blacks MDRD (S/P/Bld) [Vol rate/Area] 45 mL/min/{1.73_m2} Low >60 [facility] Comment on above: Order Comment: Order Date: 12/06/24Order Info: 86- - CMPOrder Info: [id number] - LIPIDOrder Info: 3 - TSHOrder Info: [id number] - PSA Result Comment: mL/m in/1.73m2 CKD-EPI Creatinine Equation (2020) Performed By: #### L 501.9520, L501.9985, L500.4100, L100.0100, L501.9910, L500.4050 ####[facility] [address] [place], [place], [address] Globulin (S) [Mass/Vol] 2.6 g/dL Normal 2.2-4.2 [facility] Comment on above: Order Comment: Order Date: 12/06/24Order Info: [id number] - CMPOrder Info: - LIPIDOrder Info: [id number] - TSHOrder Info: [id number] - PSA Performed By: #### L 501.9520, L501.9985, L500.4100, L100.0100, L501.9910, L500.4050 ####[facility] [address] [place], [address] Glucose [Mass/Vol] 94 mg/dL Normal 70-99 [facility] Comment on above: Order Comment: Order Date: 12/06/24Order Info: 785- - CMPOrder Info: [id number] - LIPIDOrder Info: [id number] - TSHOrder Info: [id number] - PSA Performed By: #### L 501.9520, L501.9985, L500.4100, L100.0100, L501.9910, L500.4050 ####[facility] [address] [place], [address] Potassium [Moles/Vol] 3.7 mmol/L Normal 3.3-5.1 [facility] Comment on above: Order Comment: Order Date: 12/06/24Order Info: [id number] - CMPOrder Info: [id number] - LIPIDOrder Info: [id number] - TSHOrder Info: [id number] - PSA Performed By: #### L 501.9520, L501.9985, L500.4100, L100.0100, L501.9910, L500.4050 ####[facility] [address] [place], [address] Sodium [Moles/Vol] 141 mmol/L Normal 133-145 [facility] Comment on above: Order Comment: Order Date: 12/06/24Order Info: [id number]- - CMPOrder Info: [id number] - LIPIDOrder Info: [id number] - TSHOrder Info: [id number] - PSA Performed By: #### L 501.9520, L501.9985, L500.4100, L100.0100, L501.9910, L500.4050 ####[facility] [address] [place], [address] T BILI < 0.15 Normal 0.00-1.30 [facility] Comment on above: Order Comment: Order Date: 12/06/24Order Info: [id number]- - CMPOrder Info: [id number] - LIPIDOrder Info: [id number] - TSHOrder Info: [id number] - PSA Performed By: #### L 501.9520, L501.9985, L500.4100, L100.0100, L501.9910, L500.4050 ####[facility] [address] [place], [address] T PROT 6.6 g/dL Normal 5.9-8.4 [facility] Comment on above: Order Comment: Order Date: 05/13/25Order Info: [id number] - CMPOrder Info: [id number] - LIPIDOrder Info: [id number] - TSHOrder Info: [id number] - PSA Performed By: #### L 501.9520, L501.9985, L500.4100, L100.0100, L501.9910, L500.4050 ####[facility] [address] [place], [place], [id number] Urea nitrogen [Mass/Vol] 26 mg/dL High 4-19 [facility] Comment on above: Order Comment: Order Date: 12/06/24Order Info: [id number] - CMPOrder Info: [id number] - LIPIDOrder Info: [id number] - TSHOrder Info: [id number] - PSA Performed By: #### L 501.9520, L501.9985, L500.4100, L100.0100, L501.9910, L500.4050 ####[facility] [address] [place], [place], [address] Eosinophil percentageOrdered By: Monroe Rothman on 12-06-2024 Eosinophils/100 WBC (Bld) 2.4 % 0-5 [facility] Erythrocyte distribution wid th ratioOrdered By: Monroe Rothman on 12-06-2024 Erythrocyte distribution width (RBC) [Ratio] 13.7 % 11.6-14.6 [facility] Erythrocyte distribution wid th standard deviationOrdered By: Monroe Rothman on 12-06-2024 Erythrocyte distribution width (RBC) [Ratio] 43.5 fl 35.1-43.9 [facility] Glomerular filtration rate ( GFR) estimation/1.73 sq m using serum, plasma, or whole bOrdered By: Monroe Rothman on 12-06-2024 GFR/1.73 sq M.predicted among non-blacks MDRD (S/P/Bld) [Vol rate/Area] 45 mL/min/{1.73_m2} Low >60 [facility] Comment on above: mL/min/1.73m2 CKD-EP I Creatinine Equation (2020) Hematocrit Auto (Bld) [Volum e fraction]Ordered By: Monroe Rothman on 12-06-2024 Hematocrit (Bld) [Volume fraction] 35.5 % Low 40-54 [facility] Hemoglobin A1con 12-06-2024 HbA1c (Bld) [Mass fraction] 5.8 % High <=5.6 [facility] Comment on above: Order Comment: Order Date: 12/06/24Order Info: [id number] - A1C Result Comment: Norm al < 5.7 % Prediabetic 5.7 - 6.4 % Diabetic >or= 6.5 % Please note range changes. Performed By: #### L 501.9520, L501.9985, L500.4100, L100.0100, L501.9910, L500.4050 ####[facility] [address] [place], [address] Hemoglobin A1c percentageOrd ered By: Monroe Rothman on 12-06-2024 HbA1c (Bld) [Mass fraction] 5.8 % High <5.7 [facility] Comment on above: Normal < 5.7 % Predi abetic 5.7 - 6.4 % Diabetic >or= 6.5 % Please note range changes. Hemoglobin measurementOrdere d By: Monroe Rothman on 12-06-2024 Hemoglobin (Bld) [Mass/Vol] 12.2 g/dL Low 13.0-16.5 [facility] Immature granulocytes/100 WB C Auto (Bld)Ordered By: Monroe Rothman on 12-06-2024 Immature granulocytes/100 WBC (Bld) 0.300 % 0.0-0.9 [facility] Comment on above: IG% - Immature Granu locytes (promyelocytes, myelocytes and metamyelocytes) > 1% indicates that a LEFT SHIFT is Present. LDL calc ser/plasOrdered By: Monroe Rothman on 12-06-2024 Cholesterol in LDL [Mass/Vol] 104 mg/dL [facility] Comment on above: Gskoxynznw=559-276 m g/dL & Higher Mjyo=724 mg/dL or greater Laboratory - Chemistry and C hemistry - challengeOrdered By: Monroe Rothman on 12-06-2024 AST [Catalytic activity/Vol] 17 U/L <38 [facility] Lipid Profileon 12-06-2024 CHOL:HDL 7.26 Normal [facility] Comment on above: Order Comment: Order Date: 12/06/24Order Info: [id number] - CMPOrder Info: [id number] - LIPIDOrder Info: [id number] - TSHOrder Info: [id number] - PSA Performed By: #### L 501.9520, L501.9985, L500.4100, L100.0100, L501.9910, L500.4050 ####[facility] [address] [place], [address] Cholesterol [Mass/Vol] 172 mg/dL Normal <=200 [facility] Comment on above: Order Comment: Order Date: 12/06/24Order Info: [id number] - CMPOrder Info: [id number] - LIPIDOrder Info: [id number] - TSHOrder Info: [id number] - PSA Result Comment: Chol esterol level, Desirable <200 mg/dLBorderline high cholesterol 200-239 mg/dLHigh cholesterol >=240 mg/dLRecommendations of the NCEP Adult Treatment Panel for thefollowing risk-cutoff thresholds for the [place] [facility]. Performed By: #### L 501.9520, L501.9985, L500.4100, L100.0100, L501.9910, L500.4050 ####[facility] [address] [place], [address] Cholesterol in HDL [Mass/Vol] 24 mg/dL Low [facility] Comment on above: Order Comment: Order Date: 12/06/24Order Info: [id number] - CMPOrder Info: [id number] - LIPIDOrder Info: [id number] - TSHOrder Info: [id number] - PSA Result Comment: Lis onal Cholesterol Education Program (NCEP) guidelines:<40 mg/dL: Low HDL-cholesterol (major risk factor for CHD)>= 60 mg/dL: High HDL-cholesterol (negative risk factor forCHD)HDL-cholesterol is affected by a number of factors, e.g.smoking, exercise, hormones, sex and age. Performed By: #### L 501.9520, L501.9985, L500.4100, L100.0100, L501.9910, L500.4050 ####[facility] [address] [place], [address] Cholesterol in LDL [Mass/Vol] 104 mg/dL Normal [facility] Comment on above: Order Comment: Order Date: 12/06/24Order Info: 86-1 - CMPOrder Info: [id number] - LIPIDOrder Info: 3 - TSHOrder Info: [id number] - PSA Result Comment: Bord jwgydf=706-817 mg/dL Higher Tfnx=895 mg/dL or greater Performed By: #### L 501.9520, L501.9985, L500.4100, L100.0100, L501.9910, L500.4050 ####[facility] [address] [place], [address] Cholesterol in VLDL [Mass/Vol] 44 mg/dL High 5-40 [facility] Comment on above: Order Comment: Order Date: 12/06/24Order Info: [id number] - CMPOrder Info: - LIPIDOrder Info: [id number] - TSHOrder Info: [id number] - PSA Performed By: #### L 501.9520, L501.9985, L500.4100, L100.0100, L501.9910, L500.4050 ####[facility] [address] [place], [address] Triglyceride [Mass/Vol] 220 mg/dL High [facility] Comment on above: Order Comment: Order Date: 12/06/24Order Info: [id number] - CMPOrder Info: [id number] - LIPIDOrder Info: [id number] - TSHOrder Info: [id number] - PSA Result Comment: The drugs N-Acetylcysteine and Metamizole may falselydepress this assay.Normal range: <150 mg/dLBorderline High: 150-199 mg/dLHigh: 200-499 mg/dLVery High: >500 mg/dL Performed By: #### L 501.9520, L501.9985, L500.4100, L100.0100, L501.9910, L500.4050 ####[facility] [address] [place], [address] MCV (mean corpuscular volume ) determinationOrdered By: Monroe Rothman on 12-06-2024 MCV (RBC) [Entitic vol] 87.2 fL 80-94 [facility] Mean corpuscular hemoglobin (MCH) determinationOrdered By: [facility] 12-[facility]-2024 MCH (RBC) [Entitic mass] 30.0 pg 27.0-32.0 [facility] Mean corpuscular hemoglobin concentration (MCHC) determinationOrdered By: [facility] on 12-06-2024 MCHC (RBC) [Mass/Vol] 34.4 g/dL 32-36 [facility] Mean platelet volume determi nationOrdered By: [facility] on 12-06-2024 Platelet mean volume (Bld) [Entitic vol] 10.0 fL 6.2-12.0 [facility] Monocyte percentageOrdered B y: [facility] on 12-06-2024 Monocytes/100 WBC (Bld) 8.1 % 0-10 [facility] Neutrophil percentageOrdered By: [facility] on 12-06-2024 Neutrophils/100 WBC (Bld) 60.3 % 47-70 [facility] Nucleated red blood cell per centageOrdered By: [facility] on 12-06-2024 Nucleated RBC/100 WBC (Bld) [Ratio] 0 % 0-5 [facility] PSA,Total - Annual Screenon 12-06-2024 PSA,TOT SCREEN 0.60 ng/mL Normal 0.02-4.00 [facility] Comment on above: Order Comment: Order Date: 12/06/24Order Info: [id number] - CMPOrder Info: [id number] - LIPIDOrder Info: [id number] - TSHOrder Info: [...] L 501.9520, L501.9985, L500.4100, L100.0100, L501.9910, L500.4050 ####[facility] [address] [place], [address] Platelet countOrdered By: Daniel Rothman on 12-06-2024 Platelets (Bld) [#/Vol] 221 10*3/uL 150-450 [facility] Potassium measurement (mass/ volume)Ordered By: Monroe Rothman on 12-06-2024 Potassium (Unsp spec) [Mass/Vol] 3.7 mmol/L 3.3-5.1 [facility] RBC Auto (Bld) [#/Vol]Ordere d By: Monroe Rothman on 12-06-2024 RBC (Bld) [#/Vol] 4.07 10*6/uL Low 4.6-6.2 [facility] Screening total cholesterol/ high density lipoprotein (HDL) cholesterol ratioOrdered By: Monroe Rothman on 12-06-2024 Cholesterol.total/Shannan sterol in HDL [Mass ratio] 7.26 {ratio} [facility] Serum creatinine measurement (mass/volume)Ordered By: Monroe Rothman on 12-06-2024 Creatinine [Mass/Vol] 1.76 mg/dL High 0.70-1.20 [facility] Serum globulin measurementOr dered By: Monroe Rothman on 12-06-2024 Globulin (S) [Mass/Vol] 2.6 g/dL 2.2-4.2 [facility] Serum glucose measurement (m ass/volume)Ordered By: Monroe Rothman on 12-06-2024 Glucose [Mass/Vol] 94 mg/dL 70-99 [facility] Serum or plasma alanine stephens otransferase (ALT) measurementOrdered By: Monroe Rothman on 12-06-2024 ALT [Catalytic activity/Vol] 14 U/L <47 [facility] Serum or plasma albumin milagros urement (mass/volume)Ordered By: Monroe Rothman on 12-06-2024 Albumin [Mass/Vol] 4.1 g/dL 3.5-5.0 [facility] Serum or plasma albumin/glob ulin mass ratioOrdered By: Monroe Rothman on 12-06-2024 Albumin/Globulin [Mass ratio] 1.6 {ratio} 0.9-2.4 [facility] Serum or plasma alkaline melissa sphatase measurementOrdered By: Monroe Rothman on 12-06-2024 ALP [Catalytic activity/Vol] 95 U/L 40-129 [facility] Serum or plasma calcium milagros urement (mass/volume)Ordered By: Monroe Rothman on 12-06-2024 Calcium [Mass/Vol] 8.7 mg/dL 7.6-11.0 [facility] Serum or plasma cholesterol in HDL measurement (mass/volume)Ordered By: Monroe Rothman on 12-06-2024 Cholesterol in HDL [Mass/Vol] 24 mg/dL Low >40 [facility] Comment on above: National Cholesterol Education Program (NCEP) guidelines:<40 mg/dL: Low HDL-cholesterol (major risk factor for CHD)>= 60 mg/dL: High HDL-cholesterol (negative risk factor for CHD)HDL-cholesterol is affected by a number of factors, e.g. smoking, exercise, hormones, sex and age. Serum or plasma cholesterol measurement (mass/volume)Ordered By: Monroe Rothman on 12-06-2024 Cholesterol [Mass/Vol] 172 mg/dL <201 [facility] Comment on above: Cholesterol level, D esirable <200 mg/dLBorderline high cholesterol 200-239 mg/dLHigh cholesterol >=240 mg/dLRecommendations of the NCEP Adult Treatment Panel for the following risk-cutoff thresholds for the [place] population. Serum or plasma urea nitroge n measurement (mass/volume)Ordered By: Monroe Rothman on 12-06-2024 Urea nitrogen [Mass/Vol] 26 mg/dL High 4-19 [facility] Sodium levelOrdered By: Kristen Rothman on 12-06-2024 Sodium [Moles/Vol] 141 mmol/L 133-145 [facility] TSH DL <= 0.005 mIU/L QnOrde red By: Monroe Rothman on 12-06-2024 TSH Qn 2.680 uIU/mL 0.300-4.200 [facility] Thyroid Stim Hormone (TSH)on 12-06-2024 TSH 2.680 uIU/mL Normal 0.300-4.200 [facility] Comment on above: Order Comment: Order Date: 12/06/24Order Info: [id number]- - CMPOrder Info: [id number] - LIPIDOrder Info: [id number] - TSHOrder Info: [id number] - PSA Performed By: #### L 501.9520, L501.9985, L500.4100, L100.0100, L501.9910, L500.4050 ####[facility] [address] [place], [place], [address] Total proteinOrdered By: Sherrill Rotmhan on 12-06-2024 Protein [Mass/Vol] 6.6 g/dL 5.9-8.4 [facility] Triglycerides measurementOrd ered By: Monroe Rothman on 12-06-2024 Triglyceride [Mass/Vol] 220 mg/dL High <199 [facility] Comment on above: The drugs N-Acetylcy steine and Metamizole may falsely depress this assay. Normal range: <150 mg/dLBorderline High: 150-199 mg/dLHigh: 200-499 mg/dLVery High: >500 mg/dL Vitamin D,25 Hydroxyon 12-06 Vitamin D 25-OH 12.5 ng/mL Low 30-100 [facility] Comment on above: Order Comment: Order Date: 12/06/24Order Info: [id number] - CMPOrder Info: [id number] - LIPIDOrder Info: [id number] - TSHOrder Info: [id number] - PSA Result Comment: Ilana min D StatusDeficiency: <20 ng/mL (50nmol/L)Insufficiency: 20-30 ng/mL (50-75 nmol/L)Sufficiency: 30-100 ng/mL (75-250 nmol/L)Toxicity: >100 ng/mL (>250 nmol/L) Performed By: #### L [phone] ####[facility] [id number] [place], [address] White blood cell (WBC) count Ordered By: Monroe Rothman on 12-06-2024 WBC (Bld) [#/Vol] 5.8 10*3/uL 4.4-11.0 [facility] Basophil percentageOrdered B y: Rosa Steinberg on 12-03-2022 Bilirubin [Mass/Vol] 0.40 mg/dL 0.20-1.00 [facility] Comment on above: For patients on eltr ombopag therapy, use of Dimension [place] TBIL is not recommended. Chloride [Moles/Vol] 105 mmol/L 98-107 [facility] Cholesterol [Mass/Vol] 200 mg/dL <200 [facility] Comment on above: <200 mg/dL Desirable 200-240 mg/dL Borderline >240 mg/dL High Risk Glucose [Mass/Vol] 109 mg/dL 74-106 [facility] Comment on above: Fasting Glucose resu lt from 100 to 125 mg/dL suggests IMPAIRED HOMEOSTASIS per A.D.A. criteria. Potassium [Moles/Vol] 4.5 mmol/L 3.5-5.1 [facility] Protein [Mass/Vol] 7.5 g/dL 6.4-8.2 [facility] Sodium [Moles/Vol] 137 mmol/L 136-145 [facility] Triglyceride [Mass/Vol] 255 mg/dL <199 [facility] Comment on above: The drugs N-Acetylcy steine and Metamizole may falsely depress this assay.Serum Triglycerides Reference Interval Normal <150 mg/dL Borderline high 150 - 199 mg/dL High 200 - 499 mg/dL Very High > or = 500 mg/dL Laboratory - Chemistry and C hemistry - challengeOrdered By: Rosa Steinberg on 12-03-2022 ALP [Catalytic activity/Vol] 96 U/L 45-117 [facility] ALT [Catalytic activity/Vol] 30 U/L 16-61 [facility] CO2 [Moles/Vol] 26.0 mmol/L 21.0-32.0 [facility] Globulin (S) [Mass/Vol] 3.7 g/dL 2.2-4.2 [facility] Urea nitrogen/Creatinine [Mass ratio] 18.0 mg/mg 10-20 [facility] No Panel InformationOrdered By: Rosa Steinberg on 12-03-2022 Estimated GFR (MDRD) Amer 106 mL/min >60 [facility] Comment on above: GFR Calc Estimated GFR (MDRD) Non-Af Amer 88 mL/min >60 [facility] Comment on above: Non- GFR Calc Prostate Specific Antigen Screen 0.87 ng/mL 0.00-4.00 [facility] Comment on above: This test was perfor med using the TPSA assay method for [employer] chemistry system. Values obtained with differentassay methods cannot be used interchangably.When changing PSA assays in the course of monitoring apatient, additional sequential testing should be carriedout to confirm baseline values. Thyroid Stimulating Hormone (TSH) 1.99 uIU/mL 0.358-3.74 [facility] Serum or plasma albumin milagros urement (mass/volume)Ordered By: Rosa Steinberg on 12-03-2022 Albumin [Mass/Vol] 3.8 g/dL 3.2-5.0 [facility] Serum or plasma albumin/glob ulin mass ratioOrdered By: Rosa Steinberg on 12-03-2022 Albumin/Globulin [Mass ratio] 1.0 {ratio} 0.9-2.4 [facility] Serum or plasma calcium milagros urement (mass/volume)Ordered By: Rosa Steinberg on 12-03-2022 Calcium [Mass/Vol] 9.0 mg/dL 8.5-10.1 [facility] Serum or plasma cholesterol in HDL measurement (mass/volume)Ordered By: Rosa Steinberg on 12-03-2022 Cholesterol in HDL [Mass/Vol] 27 mg/dL >40 [facility] Comment on above: The drugs N-Acetylcy steine and Metamizole may falsely depress this assay. Reference Range HDL <40 mg/dL Low HDL Cholesterol HDL >or= 60 mg/dL High HDL Cholesterol Serum or plasma cholesterol in VLDL measurement (mass/volume)Ordered By: Rosa Steinberg on 12-03-2022 Cholesterol in VLDL [Mass/Vol] 51 mg/dL 5-40 [facility] Serum or plasma creatinine m easurement (mass/volume)Ordered By: Rosa Steinberg on 12-03-2022 Creatinine [Mass/Vol] 0.95 mg/dL 0.70-1.30 [facility] Comment on above: The validity of the calculated GFR & GFRAA in patients over 70 years has not been determined. Clinical correlation is essential. Serum or plasma low density lipoprotein (LDL) cholesterol measurement (mass/volume)Ordered By: Rosa Steinberg on 12-03-2022 Cholesterol in LDL [Mass/Vol] 122 mg/dL 0-130 [facility] Serum or plasma urea nitroge n measurement (mass/volume)Ordered By: Rosa Steinberg on 12-03-2022 Urea nitrogen [Mass/Vol] 17 mg/dL 7-18 [facility] Thin prep Papanicolaou smear with manual screeningOrdered By: Rosa Steinberg on 12-03-2022 Thin prep Papanicolaou smear with manual screening 13 U/L 15-37 [facility] Thin prep Papanicolaou smear with manual screening 6 5-15 [facility] Thin prep Papanicolaou smear with manual screening 13.8 mg/L NO RANGE EST. [facility] Whole blood hemoglobin A1c/t otal hemoglobin ratio (mass fraction)Ordered By: Rosa Steinberg on 12-03-2022 HbA1c (Bld) [Mass fraction] 5.6 % 3.8-5.6 [facility] Comment on above: Normal < 5.7 % Predi abetic 5.7 - 6.4 % Diabetic >or= 6.5 % Please note range changes. Vital Signs Date Time Vital Sign Value Performing Clinician Yasiri mery 11-17-2022 07:59-0400 Body height 182.[address] Adal SMITH Work Phone: [facility] 11-17-2022 07:59-0400 Body mass index (BMI) [Ratio] 34.8 kg/m2 Dr. Adal SMITH Work Phone: [facility] 11-17-2022 07:59-0400 Body temperature 96 [degF] Dr. Adal SMITH Work Phone: [facility] 04-24-2023 07:59-0400 Body weight 116.[address] Adal SMITH Work Phone: [facility] 11-17-2022 07:59-0400 Diastolic blood pressure 81 mm[Hg] Dr. Adal SMITH Work Phone: [facility] 11-17-2022 07:59-0400 Heart rate 60 /min Dr. Adal SMITH Work Phone: [facility] 11-17-2022 07:59-0400 Respiratory rate 17 /min Dr. Adal MSITH Work Phone: [facility] 11-17-2022 07:59-0400 SaO2% (BldA) [Mass fraction] 95 % Dr. Adal SMITH Work Phone: [facility] 11-17-2022 07:59-0400 Systolic blood pressure 147 mm[Hg] Dr. Adal SMITH Work Phone: [facility] Encounters Encounter Date Encounter Type Care Provider Facility Start: 05-15-2025 ambulatory Juan Torres Facili ty:[facility] Start: 05-14-2025 ambulatory Juan Torres Facili ty:[facility] Start: 05-13-2025 ambulatory Juan Torres Facili ty:[facility] Start: 05-12-2025 ambulatory Juan Torres Facili ty:[facility] Start: 05-11-2025 ambulatory Juan Torres Facili ty:[facility] Start: 05-04-2025 ambulatory Jani Tello Fac ility:[facility] Start: 05-04-2025 End: 05-10-2025 Evaluation and management of inpatient Jani Tello Facility:[facility] Start: 01-23-2025 End: 01-23-2025 ambulatory Monroe Rothman MD Work Phone: [facility] [place] Start: 01-23-2025 End: 01-23-[address] Monroe Rothman MD [facility] [place] Work Phone: Start: 01-23-2025 End: 01-23-2025 ambulatory Monroe Rothman Facility:[facility] Start: 12-09-2024 Encounter for genera l adult medical examination without abnormal findings Monroe Rothman [facility] Start: 12-06-2024 End: 12-06-2024 ambulatory Monroe Rothman MD Work Phone: [facility] Work Phone: Start: 12-06-2024 End: 12-06-[address] Monroe Rothman MD [facility] [place] Work Phone: Start: 12-06-2024 End: 12-06-2024 ambulatory Monroe Rothman Facility:[facility] Start: 12-03-2022 End: 12-03-[address] Adal SMITH Work Phone: [facility] Work Phone: Start: 12-03-2022 End: 12-03-[address] Adal SMITH Work Phone: [facility] Start: 11-19-2022 End: 11-19-[address] Adal SMITH Work Phone: [facility] Start: 11-17-2022 End: 11-17-[address] Adal SMITH Work Phone: [facility] Procedures Date Procedure Procedure Detail [...] nmol/L) Payers Date Payer Category Payer Self-pay [id number] 2024 Unknown [id number] Unknown [id number] Unknown [id number] 2.16.8 [id number] Unknown [id number] 2.16.8 [id number] Unknown [id number] 2.16.8 [id number] Unknown [id number] 2.16.8 [id number] Unknown [id number] 2.16.8 40.1.256260.3.579.2.462 Unknown [id number] 2.16.8 40.1.634406.3.579.2.462 Unknown [id number] 2.16.8 [id number] Unknown [id number] 2.16.8 40.1.767237.3.579.2.462 Unknown [id number] 2.16.8 40.1.375379.3.579.2.462 Unknown [id number] 2.16.8 40.1.714252.3.579.2.462 Unknown [id number] 2.16.8 [id number] Unknown [id number] 2.16.8 40.1.222827.3.579.2.462 Unknown [id number] 2.16.8 [id number] Unknown [id number] 2.16.8 [id number] Unknown [id number] 2.16.8 [id number] Social History Date Type Detail Facility Start: 11-19-2022 Tobacco smoking stat [facility] Unknown if ever smoked [facility] Start: 1965 Sex Assigned At Male [facility] Start: 11-19-2022 [facility] Microscopic observation Gram stain Nom (Unsp spec) 05-05-2025 Note Date & Type Note Facility 05-05-2025 Note Acceptable Specimen? Acceptable Specimen(Evaluation not needed) Gram Stain 2+ Gram positive cocci 1+ Gram positive rods 2+ White Blood Cells No Epithelial cells [facility] Comment on above: Performed By: #### M 100.2400, M100.1999 ####[facility] [id number] [facility] [place], [place], [address] Radiology Diagnostic study note 01-23-2025 Note Date & Type Note Facility 01-23-2025 Radiology Diagnostic study note [facility] Imaging Services [address] [place], [place] [address] Elbow min 3 Views MR#: [id number] Acct: [id number] Name: NOAH DOMINGUEZ Rep #: [id number] : 1965 M 59 From: Shawn Lipscomb MD PCP: Dr. Monroe Rothman MD Status: REG CL I Study:Elbow min 3 Views Date of Exam: Exam# [id number] Ordering Dr: Sherrill Rothman MD PROCEDURE: ELBOW MIN 3 VIEWS 01/23/2025 REASON FOR EXAM: SWELLING WITH CELLULITIS TECHNIQUE: ELBOW MIN 4 VIEWS COMPARISON: None FINDINGS: Bones: No fracture or suspicious osseous lesion Joints: Normal alignment. Soft tissues: Diffuse nonspecific soft tissue swelling Other: RAD/Elbow min 3 Views IMPRESSION: No fracture or suspicious osseous lesion Joint spaces well-preserved Nonspecific soft tissue swelling Reading Location: [id number] CC: Dr. Monroe Rothman MD ~ [employer] Manager: Signed [facility] Evaluation note Note Date & Type Note Facility Evaluation note Diagnosis Onset Date Epidermal cyst of neck acute Neck pain acute Epidermal cyst of neck acute Neck pain acute [facility] Work Phone: Evaluation note Note Date & Type Note Facility Evaluation note No assessment information availa ble [facility] Work Phone: Reason for referral (narrative) Note Date & Type Note Facility Reason for referral (narrative) No reason for referral information available [facility] Work Phone: Chief Complaint and Reason for [...] section and content) DATE CREATED AUTHOR 05/11/[address] [facility] FOR RECORDS PERTAINING TO PATIENTS WHO ARE [...] BE BASED ON THE PRIMARY CLINICAL RECORDS. [facility] [employer] provides no warranty or guarantee of the accuracy or completeness of information in this document.
[2025-05-13 11:45] VITALS: BP 117/48; PULSE 58; RESP 16; TEMP 36.4; O2SAT 99; BMI 33.5
[2025-05-13] MEDS: [UNRECOGNIZED DRUG - OTHER] 0.5 GM IM (11:54)
== END 2025-05-13 12:07 | disposition home or self-care (01) ==
LOC: MEDOUTP 11:23 → MS3 11:24
PROVIDERS: PCP Family Medicine; Referring Provider Internal Medicine Infectious Disease; Visit Provider Internal Medicine Infectious Disease
DX: R78.81 Bacteremia (principal); B96.20 Unspecified Escherichia coli [E. coli] as the cause of diseases classified elsewhere; Z16.12 Extended spectrum beta lactamase (ESBL) resistance
CPT/HCPCS: 96372

== ENCOUNTER 2025-05-14 11:44 | Outpatient (CLI) | payer OTHER, SELFPAY ==
--- OUTSIDE RECORDS SUMMARY | 2025-05-14 11:47 | XMS RPT_ITS | CCD ---
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 Adal Zee Primary Care Provider Dr. Adal Zee Referring Provider Dr. Wilber Patrick Attending Provider Lorna SAWANT, [place] Primary Care Provider [phone] [place] Rothman MD Attending Provider [phone] Lorna SAWANT, [place] Referring Provider [phone] Juan Macdonald Attending Unavailable Juan Macdonald Referring Unavailable Lorna, Chalon Primary Care Unavailable Juan Macdonald Attending Unavailable Juan Macdonald Referring Unavailable Lorna, Chalon Primary Care Unavailable Juan Macdonald Attending Unavailable Juan Macdonald Referring Unavailable Lorna, Chalon Primary Care Unavailable Beni Carolina Attending Unavailable Jani Tello Admitting Unavailable Lorna, Chalon Primary Care Unavailable Derik Harris Consulting Unavailable Irwin Mcintyre Consulting Unavailable Osvaldo Cardenas Consulting Unavailable Beni Carolina Consulting Unavailable Ghassan Ludwig Consulting Unavailable Noa Meraz Consulting Unavailable Tacos Holliday Consulting Unavailable Betito Real Consulting Unavailable James Veloz Consulting Unavailable Uma Frank Consulting UnavailAndrea Dial Consulting Unavailable Baldomero Coe Consulting Unavailable Peter Zavala Consulting UnavailSky Mirza Consulting Unavailable Elke Rodriguez Consulting Unavailable Conrad Morales Consulting Unavailable Zoila Wolfafgilbert Consulting UnavailTu Fragoso Consulting Unavailable Blayne, Garcia Consulting Unavailable Reta Deleon Consulting Unavailable Keyla Banegas Consulting Unavailable José Miguel, Theo Consulting Unavailable Ollie Lopez Consulting Unavailable Robby, Israel Consulting Unavailable Marly Alcantarakhdeep Consulting Unavailable Brandee Jay Consulting Unavailable Elva Mondragon Consulting Unavailable Teja Juárez Consulting Unavailable Zach Moss Consulting Unavailable Franklin Preciado Consulting Unavailable Siomara Sanford Consulting UnavailGarland Curry Consulting Unavailable Hanna, Jayaprakas Consulting Unavailable Jani Tello Consulting Unavailable Juan Macdonald Consulting Unavailable Marc, Delano Consulting Unavailable Tu Chavez Consulting Unavailable Tu Chavez Attending Unavailable Jani Tello Attending Unavailable Marc, Delano Attending Unavailable [place] Rothman Referring Unavailable Lorna, [place] Attending Unavailable Lorna, Chalon Primary Care Unavailable [place] Rothman Referring Unavailable [place] Rothman Attending Unavailable Lorna, Chalon Primary Care Unavailable Juan Macdonald Attending Unavailable Lorna, Chalon Primary Care Unavailable Juan Macdonald Referring Unavailable Juan Macdonald Attending Unavailable Lorna, Chalon Primary Care Unavailable Juan Macdonald Referring Unavailable Jani Tello Consulting Unavailable Jani Tello Admitting Unavailable Tu Chavez Attending Unavailable Lorna, Chalon Primary Care Unavailable Marc, Delano Consulting Unavailable Juan Macdonald Consulting Unavailable Hanna, Jayaprakas Consulting Unavailable Allergies Allergy Classification Reported Allergen(s) Allergy Type Date of Onset Reaction(s) Facility (3 sources) Citalopram Drug Allergy 3 Other [facility] Comment on above: headaches (3 sources) Sulfonamides (Antibiotic) Allergy to substance 3 unknown [facility] (1 source) Citalopram Drug Allergy 5 [facility] (1 source) Sulfonamides (Antibiotic) Drug allergy (disorder) 5 [facility] Medications Current Medications Medication Drug Class(es) Dates Sig (Normalized) Sig (Original) [id number] 200 actuat albuterol 0.09 mg/actuat metered dose [...] 05-10-2025 FINGERSTICK GLU 156 mg/dL High 74-106 [facility] Comment on above: Result Comment: KIANA GEMENT OF PATIENT CARE PER NURSING PROTOCOL Performed By: #### L 501.080 ####[facility] [address] [place], [address] FINGERSTICK GLU 108 mg/dL High 74-106 [facility] Comment on above: Result Comment: KIANA GEMENT OF PATIENT CARE PER NURSING PROTOCOL Performed By: #### L 501.080 ####[facility] [address] [place], [address] Discharge Instructionon 04-26 Discharge Instruction Normal [facility] Renal Profileon 05-10-2025 Albumin [Mass/Vol] 2.7 g/dL Low 3.5-5.0 [facility] Comment on above: Performed By: #### L 500.3600 ####[facility] [address] [place], [address] BUN/CRE 21.3 RATIO High -20 [facility] Comment on above: Performed By: #### L 500.3600 ####[facility] [address] [place], [address] Calcium [Mass/Vol] 7.7 mg/dL Normal 7.6-11.0 [facility] Comment on above: Performed By: #### L 500.3600 ####[facility] [address] [place], [address] Chloride [Moles/Vol] 104 mmol/L Normal 98-108 [facility] Comment on above: Performed By: #### L 500.3600 ####[facility] [address] [place], [address] CO2 [Moles/Vol] 21.2 mmol/L Normal 21.0-32.0 [facility] Comment on above: Performed By: #### L 500.3600 ####[facility] [address] [place], [address] Creatinine [Mass/Vol] 2.96 mg/dL High 0.70-1.20 [facility] Comment on above: Performed By: #### L 500.3600 ####[facility] [address] [place], [address] ECRCL 35.15 ml/min Low 50-250 [facility] Comment on above: Performed By: #### L 500.3600 ####[facility] [address] [place], [address] GAP 12 Normal 5-15 [facility] Comment on above: Performed By: #### L 500.3600 ####[facility] [address] [place], [address] GFR/1.73 sq M.predicted among non-blacks MDRD (S/P/Bld) [Vol rate/Area] 24 mL/min/{1.73_m2} Low >60 [facility] Comment on above: Result Comment: mL/m in/1.73m2 CKD-EPI Creatinine Equation (2020) Performed By: #### L 500.3600 ####[facility] [address] [place], [address] Glucose [Mass/Vol] 119 mg/dL High 70-99 [facility] Comment on above: Performed By: #### L 500.3600 ####[facility] [address] [place], [address] Phosphate [Mass/Vol] 5.2 mg/dL High 2.7-4.5 [facility] Comment on above: Performed By: #### L 500.3600 ####[facility] [address] [place], [address] Potassium [Moles/Vol] 3.5 mmol/L Normal 3.3-5.1 [facility] Comment on above: Performed By: #### L 500.3600 ####[facility] [address] [place], [address] Sodium [Moles/Vol] 137 mmol/L Normal 133-145 [facility] Comment on above: Performed By: #### L 500.3600 ####[facility] [address] [place], [address] Urea nitrogen [Mass/Vol] 63 mg/dL High 4-19 [facility] Comment on above: Performed By: #### L 500.3600 ####[facility] [address] [place], [address] ANCAon 05-09-2025 Atypical pANCA <1:20 Normal Neg:<1:20 [facility] Comment on above: Result Comment: The atypical pANCA pattern has been observed in asignificant percentage of patients with ulcerative colitis,primary sclerosing cholangitis and autoimmune hepatitis. Performed By: #### L 3100.3450, L3400.4200, L3100.5700, L3300.1200, L3100.5800 ####[facility] [address] [place], [address] Cytoplasmic Ab <1:20 Normal Neg:<1:20 [facility] Comment on above: Performed By: #### L 3100.3450, L3400.4200, L3100.5700, L3300.1200, L3100.5800 ####[facility] [address] [place], [address] Perinuclear Ab. <1:20 Normal Neg:<1:20 [facility] Comment on above: Result Comment: The presence of positive fluorescence exhibiting P-ANCA orC-ANCA patterns alone is not specific for the diagnosis ofWegener's Granulomatosis (WG) or microscopic polyangiitis.Decisions about treatment should not be based solely onANCA IFA results. The International ANCA Group Consensusrecommends follow up testing of positive sera with both AL-3 and MPO-ANCA enzyme immunoassays. As many as 5% serumsamples are positive only by EIA. Ref. AM J Clin Soxspk9535;111:507-513. Performed By: #### L 3100.3450, L3400.4200, L3100.5700, L3300.1200, L3100.5800 ####[facility] [address] [place], [address] Anti-Glomerular Basement Mem bon 05-09-2025 ANTI-GLOM BM Ab < 0.2 Normal 0.0-0.9 [facility] Comment on above: Result Comment: Perf ormed at: - [facility] [address] [id number] Director: Compa Abdullahi PhD, Phone: [phone] at: [facility] [place] [facility] [address] [id number] Director: Gautam Hager MD, Phone: [phone] Performed By: #### L 3100.3450, L3400.4200, L3100.5700, L3300.1200, L3100.5800 ####[facility] [address] [place], [address] Basic Metabolic Profile (BMP )on 05-09-2025 BUN/CRE 18.9 RATIO Normal 05-15 [facility] Comment on above: Performed By: #### L 100.0100, L500.2500 ####[facility] [address] [place], [address] Calcium [Mass/Vol] 7.6 mg/dL Normal 7.6-11.0 [facility] Comment on above: Performed By: #### L 100.0100, L500.2500 ####[facility] [address] [place], [address] Chloride [Moles/Vol] 103 mmol/L Normal 98-108 [facility] Comment on above: Performed By: #### L 100.0100, L500.2500 ####[facility] [address] [place], [address] CO2 [Moles/Vol] 20.4 mmol/L Low 21.0-32.0 [facility] Comment on above: Performed By: #### L 100.0100, L500.2500 ####[facility] [address] [place], [address] Creatinine [Mass/Vol] 3.09 mg/dL High 0.70-1.20 [facility] Comment on above: Performed By: #### L 100.0100, L500.2500 ####[facility] [address] [place], [address] ECRCL 33.55 ml/min Low 50-250 [facility] Comment on above: Performed By: #### L 100.0100, L500.2500 ####[facility] [address] [place], [address] GAP 14 Normal 5-15 [facility] Comment on above: Performed By: #### L 100.0100, L500.2500 ####[facility] [address] [place], [address] GFR/1.73 sq M.predicted among non-blacks MDRD (S/P/Bld) [Vol rate/Area] 23 mL/min/{1.73_m2} Low >60 [facility] Comment on above: Result Comment: mL/m in/1.73m2 CKD-EPI Creatinine Equation (2020) Performed By: #### L 100.0100, L500.2500 ####[facility] [address] [place], [address] Glucose [Mass/Vol] 118 mg/dL High 70-99 [facility] Comment on above: Performed By: #### L 100.0100, L500.2500 ####[facility] [address] [place], [address] Potassium [Moles/Vol] 3.3 mmol/L Normal 3.3-5.1 [facility] Comment on above: Performed By: #### L 100.0100, L500.2500 ####[facility] [address] [place], [address] Sodium [Moles/Vol] 137 mmol/L Normal 133-145 [facility] Comment on above: Performed By: #### L 100.0100, L500.2500 ####[facility] [address] [place], [address] Urea nitrogen [Mass/Vol] 58 mg/dL High 4-19 [facility] Comment on above: Performed By: #### L 100.0100, L500.2500 ####[facility] [address] [place], [address] Bedside Glucoseon 05-09-2025 FINGERSTICK GLU 120 mg/dL High 74-106 [facility] Comment on above: Result Comment: KIANA GEMENT OF PATIENT CARE PER NURSING PROTOCOL Performed By: #### L 501.080 ####[facility] [address] [place], [address] FINGERSTICK GLU 123 mg/dL High 74-106 [facility] Comment on above: Result Comment: KIANA GEMENT OF PATIENT CARE PER NURSING PROTOCOL Performed By: #### L 501.080 ####[facility] [address] [place], [address] FINGERSTICK GLU 116 mg/dL High 74-106 [facility] Comment on above: Result Comment: KIANA GEMENT OF PATIENT CARE PER NURSING PROTOCOL Performed By: #### L 501.080 ####[facility] [address] [place], [address] FINGERSTICK GLU 111 mg/dL High 74-106 [facility] Comment on above: Result Comment: KIANA GEMENT OF PATIENT CARE PER NURSING PROTOCOL Performed By: #### L 501.080 ####[facility] [address] [place], [address] FINGERSTICK GLU 103 mg/dL Normal 74-106 [facility] Comment on above: Result Comment: KIANA GEMENT OF PATIENT CARE PER NURSING PROTOCOL Performed By: #### L 501.080 ####[facility] [address] [place], [address] FINGERSTICK GLU 93 mg/dL Normal 74-106 [facility] Comment on above: Result Comment: KIANA GEMENT OF PATIENT CARE PER NURSING PROTOCOL Performed By: #### L 501.080 ####[facility] [address] [place], [address] CBC W/Diff, Automatedon 10- Absolute Lymph 0.95 X10 3/uL Normal 0.83-4.51 [facility] Comment on above: Performed By: #### L 100.0100, L500.2500 ####[facility] [address] [place], [address] Absolute Neut 9.2 X10 3/uL High 2.0-7.7 [facility] Comment on above: Performed By: #### L 100.0100, L500.2500 ####[facility] [address] [place], [address] Basophils/100 WBC (Bld) 0.3 % Normal 0-1 [facility] Comment on above: Performed By: #### L 100.0100, L500.2500 ####[facility] [address] [place], [address] Eosinophils/100 WBC (Bld) 0.0 % Normal 0-5 [facility] Comment on above: Performed By: #### L 100.0100, L500.2500 ####[facility] [address] [place], [address] Erythrocyte distribution width (RBC) [Ratio] 14.9 % High 11.6-14.6 [facility] Comment on above: Performed By: #### L 100.0100, L500.2500 ####[facility] [address] [place], [address] Hematocrit (Bld) [Volume fraction] 28.4 % Low 40-54 [facility] Comment on above: Performed By: #### L 100.0100, L500.2500 ####[facility] [address] [place], [address] Hemoglobin (Bld) [Mass/Vol] 9.5 g/dL Low 13.0-16.5 [facility] Comment on above: Performed By: #### L 100.0100, L500.2500 ####[facility] [address] [place], [address] IG% 3.300 High 0.0-0.9 [facility] Comment on above: Result Comment: IG% - Immature Granulocytes (promyelocytes, myelocytes andmetamyelocytes) > 1% indicates that a LEFT SHIFT is Present. Performed By: #### L 100.0100, L500.2500 ####[facility] [address] [place], [address] Lymphocytes/100 WBC (Bld) 8.5 % Low 19-41 [facility] Comment on above: Performed By: #### L 100.0100, L500.2500 ####[facility] [address] [place], [address] MCH (RBC) [Entitic mass] 27.4 pg Normal 27.0-32.0 [facility] Comment on above: Performed By: #### L 100.0100, L500.2500 ####[facility] [address] [place], [address] MCHC (RBC) [Mass/Vol] 33.5 g/dL Normal 32-36 [facility] Comment on above: Performed By: #### L 100.0100, L500.2500 ####[facility] [address] [place], [address] MCV (RBC) [Entitic vol] 81.8 fL Normal 80-94 [facility] Comment on above: Performed By: #### L 100.0100, L500.2500 ####[facility] [address] [place], [address] Monocytes/100 WBC (Bld) 5.4 % Normal 0-10 [facility] Comment on above: Performed By: #### L 100.0100, L500.2500 ####[facility] [address] [place], [address] Neutrophils/100 WBC (Bld) 82.5 % High 47-70 [facility] Comment on above: Performed By: #### L 100.0100, L500.2500 ####[facility] [address] [place], [address] Nucleated RBC (Bld) [#/Vol] 0 10*3/uL Normal 0-5 [facility] Comment on above: Performed By: #### L 100.0100, L500.2500 ####[facility] [address] [place], [address] Platelet mean volume (Bld) [Entitic vol] 11.1 fL Normal 6.2-12.0 [facility] Comment on above: Performed By: #### L 100.0100, L500.2500 ####[facility] [address] [place], [address] Platelets (Bld) [#/Vol] 157 10*3/uL Normal 150-450 [facility] Comment on above: Performed By: #### L 100.0100, L500.2500 ####[facility] [address] [place], [address] RBC (Bld) [#/Vol] 3.47 10*6/uL Low 4.6-6.2 [facility] Comment on above: Performed By: #### L 100.0100, L500.2500 ####[facility] [address] [place], [address] RDW SD 44.3 fl High 35.1-43.9 [facility] Comment on above: Performed By: #### L 100.0100, L500.2500 ####[facility] [address] [place], [address] WBC (Bld) [#/Vol] 11.2 10*3/uL High 4.4-11.0 [facility] Comment on above: Performed By: #### L 100.0100, L500.2500 ####[facility] [address] [place], [address] Complement C3on 05-09-2025 COMP C3 86 mg/dL Normal 82-167 [facility] Comment on above: Performed By: #### L 3100.3450, L3400.4200, L3100.5700, L3300.1200, L3100.5800 ####[facility] [address] [place], [address] Complement C4on 05-09-2025 COMPLEMENT, C4 25 mg/dL Normal 12-38 [facility] Comment on above: Performed By: #### L 3100.3450, L3400.4200, L3100.5700, L3300.1200, L3100.5800 ####[facility] [address] [place], [address] Protein Electroph, Son 05-09 Albumin [Mass/Vol] 2.0 g/dL Low 2.9-4.4 [facility] Comment on above: Performed By: #### L 3100.3450, L3400.4200, L3100.5700, L3300.1200, L3100.5800 ####[facility] [address] [place], [address] Albumin/Globulin [Mass ratio] 0.7 {ratio} Normal 0.7-1.7 [facility] Comment on above: Performed By: #### L 3100.3450, L3400.4200, L3100.5700, L3300.1200, L3100.5800 ####[facility] [address] [place], [address] ALPHA-1 GLOBUL 0.4 g/dL Normal 0.0-0.4 [facility] Comment on above: Performed By: #### L 3100.3450, L3400.4200, L3100.5700, L3300.1200, L3100.5800 ####[facility] [address] [place], [address] ALPHA-2 GLOBUL 0.9 g/dL Normal 0.4-1.0 [facility] Comment on above: Performed By: #### L 3100.3450, L3400.4200, L3100.5700, L3300.1200, L3100.5800 ####[facility] [address] [place], [address] BETA GLOBULIN 0.5 g/dL Low 0.7-1.3 [facility] Comment on above: Performed By: #### L 3100.3450, L3400.4200, L3100.5700, L3300.1200, L3100.5800 ####[facility] [address] [place], [address] GAMMA GLOBULIN 1.0 g/dL Normal 0.4-1.8 [facility] Comment on above: Performed By: #### L 3100.3450, L3400.4200, L3100.5700, L3300.1200, L3100.5800 ####[facility] [address] [place], [address] Globulin (S) [Mass/Vol] 2.8 g/dL Normal 2.2-3.9 [facility] Comment on above: Performed By: #### L 3100.3450, L3400.4200, L3100.5700, L3300.1200, L3100.5800 ####[facility] [address] [place], [place], [address] INTERPRETATION Comment Normal . [facility] Comment on above: Result Comment: Prot ein electrophoresis scan will follow via computer,mail, or spouting installer delivery. Performed By: #### L 3100.3450, L3400.4200, L3100.5700, L3300.1200, L3100.5800 ####[facility] [address] [place], [address] M-SPIKE Comment: Normal Not Observed [facility] Comment on above: Result Comment: SPE shows an asymmetrical gamma. Performed By: #### L 3100.3450, L3400.4200, L3100.5700, L3300.1200, L3100.5800 ####[facility] [address] [place], [place], [address] NOTE: Comment Normal . [facility] Comment on above: Result Comment: Elliot t band in gamma region suspicious for monoclonalimmunoglobulin. This band may represent a benign spike asseen in older people or could be a paraprotein as seen inMultiple Myeloma, Waldenstrom's Macroglobulinemia orLymphoma. Depending on clinical circumstances, furtherdiagnostic studies may include serum immunofixation orserum free light chain quantitation. Performed By: #### L 3100.3450, L3400.4200, L3100.5700, L3300.1200, L3100.5800 ####[facility] [address] [place], [address] Protein [Mass/Vol] 4.8 g/dL Low 6.0-8.5 [facility] Comment on above: Performed By: #### L 3100.3450, L3400.4200, L3100.5700, L3300.1200, L3100.5800 ####[facility] [address] [place], [address] Bedside Glucoseon 05-08-2025 FINGERSTICK GLU 107 mg/dL High 74-106 [facility] Comment on above: Result Comment: KIANA GEMENT OF PATIENT CARE PER NURSING PROTOCOL Performed By: #### L 501.080 ####[facility] [address] [place], [address] FINGERSTICK GLU 130 mg/dL High 74-106 [facility] Comment on above: Result Comment: KIANA GEMENT OF PATIENT CARE PER NURSING PROTOCOL Performed By: #### L 501.080 ####[facility] [address] [place], [address] FINGERSTICK GLU 106 mg/dL Normal 74-106 [facility] Comment on above: Result Comment: KIANA GEMENT OF PATIENT CARE PER NURSING PROTOCOL Performed By: #### L 501.080 ####[facility] [address] [place], [address] CBC W/Diff, Automatedon 04-26 Absolute Lymph 0.67 X10 3/uL Low 0.83-4.51 [facility] Comment on above: Performed By: #### L 100.0100, L500.4050 ####[facility] [address] [place], [address] Absolute Neut 7.8 X10 3/uL High 2.0-7.7 [facility] Comment on above: Performed By: #### L 100.0100, L500.4050 ####[facility] [address] [place], [address] Basophils/100 WBC (Bld) 0.1 % Normal 0-1 [facility] Comment on above: Performed By: #### L 100.0100, L500.4050 ####[facility] [address] [place], [address] Eosinophils/100 WBC (Bld) 0.0 % Normal 0-5 [facility] Comment on above: Performed By: #### L 100.0100, L500.4050 ####[facility] [address] [place], [address] Erythrocyte distribution width (RBC) [Ratio] 15.6 % High 11.6-14.6 [facility] Comment on above: Performed By: #### L 100.0100, L500.4050 ####[facility] [address] [place], [address] Hematocrit (Bld) [Volume fraction] 24.4 % Low 40-54 [facility] Comment on above: Performed By: #### L 100.0100, L500.4050 ####[facility] [address] [place], [address] Hemoglobin (Bld) [Mass/Vol] 8.3 g/dL Low 13.0-16.5 [facility] Comment on above: Performed By: #### L 100.0100, L500.4050 ####[facility] [address] [place], [address] IG% 1.800 High 0.0-0.9 [facility] Comment on above: Result Comment: IG% - Immature Granulocytes (promyelocytes, myelocytes andmetamyelocytes) > 1% indicates that a LEFT SHIFT is Present. Performed By: #### L 100.0100, L500.4050 ####[facility] [address] [place], [address] Lymphocytes/100 WBC (Bld) 7.4 % Low 19-41 [facility] Comment on above: Performed By: #### L 100.0100, L500.4050 ####[facility] [address] [place], [address] MCH (RBC) [Entitic mass] 27.0 pg Normal 27.0-32.0 [facility] Comment on above: Performed By: #### L 100.0100, L500.4050 ####[facility] [address] [place], [address] MCHC (RBC) [Mass/Vol] 34.0 g/dL Normal 32-36 [facility] Comment on above: Performed By: #### L 100.0100, L500.4050 ####[facility] [address] [place], [address] MCV (RBC) [Entitic vol] 79.5 fL Low 80-94 [facility] Comment on above: Performed By: #### L 100.0100, L500.4050 ####[facility] [address] [place], [address] Monocytes/100 WBC (Bld) 5.5 % Normal 0-10 [facility] Comment on above: Performed By: #### L 100.0100, L500.4050 ####[facility] [address] [place], [address] Neutrophils/100 WBC (Bld) 85.2 % High 47-70 [facility] Comment on above: Performed By: #### L 100.0100, L500.4050 ####[facility] [address] [place], [address] Nucleated RBC (Bld) [#/Vol] 0 10*3/uL Normal 0-5 [facility] Comment on above: Performed By: #### L 100.0100, L500.4050 ####[facility] [address] [place], [address] Platelet mean volume (Bld) [Entitic vol] 10.9 fL Normal 6.2-12.0 [facility] Comment on above: Performed By: #### L 100.0100, L500.4050 ####[facility] [address] [place], [address] Platelets (Bld) [#/Vol] 108 10*3/uL Low 150-450 [facility] Comment on above: Performed By: #### L 100.0100, L500.4050 ####[facility] [address] [place], [address] RBC (Bld) [#/Vol] 3.07 10*6/uL Low 4.6-6.2 [facility] Comment on above: Performed By: #### L 100.0100, L500.4050 ####[facility] [address] [place], [address] RDW SD 45.3 fl High 35.1-43.9 [facility] Comment on above: Performed By: #### L 100.0100, L500.4050 ####[facility] [address] [place], [address] WBC (Bld) [#/Vol] 9.1 10*3/uL Normal 4.4-11.0 [facility] Comment on above: Performed By: #### L 100.0100, L500.4050 ####[facility] [address] [place], [address] Comprehensive Metabolic Prof ilon 05-08-2025 Albumin/Globulin [Mass ratio] 0.8 {ratio} Low 0.9-2.4 [facility] Comment on above: Performed By: #### L 100.0100, L500.4050 ####[facility] [address] [place], [address] ALK PHOS 82 U/L Normal 40-129 [facility] Comment on above: Performed By: #### L 100.0100, L500.4050 ####[facility] [address] [place], [address] ALT [Catalytic activity/Vol] 31 U/L Normal <=46 [facility] Comment on above: Performed By: #### L 100.0100, L500.4050 ####[facility] [address] [place], [address] AST [Catalytic activity/Vol] 68 U/L High <=37 [facility] Comment on above: Performed By: #### L 100.0100, L500.4050 ####[facility] [address] [place], [address] Bilirubin [Mass/Vol] 0.66 mg/dL Normal 0.00-1.30 [facility] Comment on above: Performed By: #### L 100.0100, L500.4050 ####[facility] [address] [place], [address] BUN/CRE 15.9 RATIO Normal 10-20 [facility] Comment on above: Performed By: #### L 100.0100, L500.4050 ####[facility] [address] [place], [address] CO2 [Moles/Vol] 21.3 mmol/L Normal 21.0-32.0 [facility] Comment on above: Performed By: #### L 100.0100, L500.4050 ####[facility] [address] [place], [address] Creatinine [Mass/Vol] 3.31 mg/dL High 0.70-1.20 [facility] Comment on above: Performed By: #### L 100.0100, L500.4050 ####[facility] [address] [place], [address] ECRCL 31.70 ml/min Low 50-250 [facility] Comment on above: Performed By: #### L 100.0100, L500.4050 ####[facility] [address] [place], [address] GAP 12 Normal 5-15 [facility] Comment on above: Performed By: #### L 100.0100, L500.4050 ####[facility] [address] [place], [address] GFR/1.73 sq M.predicted among non-blacks MDRD (S/P/Bld) [Vol rate/Area] 21 mL/min/{1.73_m2} Low >60 [facility] Comment on above: Result Comment: mL/m in/1.73m2 CKD-EPI Creatinine Equation (2020) Performed By: #### L 100.0100, L500.4050 ####[facility] [address] [place], [address] Globulin (S) [Mass/Vol] 3.0 g/dL Normal 2.2-4.2 [facility] Comment on above: Performed By: #### L 100.0100, L500.4050 ####[facility] [address] [place], [address] Glucose [Mass/Vol] 136 mg/dL High 70-99 [facility] Comment on above: Performed By: #### L 100.0100, L500.4050 ####[facility] [address] [place], [address] Potassium [Moles/Vol] 4.0 mmol/L Normal 3.3-5.1 [facility] Comment on above: Performed By: #### L 100.0100, L500.4050 ####[facility] [address] [place], [address] T PROT 5.4 g/dL Low 5.9-8.4 [facility] Comment on above: Performed By: #### L 100.0100, L500.4050 ####[facility] [address] [place], [address] Consultation - Infectious Dx on 05-08-2025 Consultation - Infectious Dx Normal [facility] Culture, Blood (WB)on 2024 CUB Normal [facility] Comment on above: Performed By: #### M 200.1000 ####[facility] [address] [place], [address] Renal Profileon 05-08-2025 Albumin [Mass/Vol] 2.4 g/dL Low 3.5-5.0 [facility] Comment on above: Performed By: #### L 500.3600 ####[facility] [address] [place], [address] Performed By: #### L 100.0100, L500.4050 ####[facility] [address] [place], [address] BUN/CRE 15.7 RATIO Normal 05-15 [facility] Comment on above: Performed By: #### L 500.3600 ####[facility] [address] [place], [address] Calcium [Mass/Vol] 7.3 mg/dL Low 7.6-11.0 [facility] Comment on above: Performed By: #### L 500.3600 ####[facility] [address] [place], [address] Performed By: #### L 100.0100, L500.4050 ####[facility] [address] [place], [address] Chloride [Moles/Vol] 104 mmol/L Normal 98-108 [facility] Comment on above: Performed By: #### L 500.3600 ####[facility] [address] [place], [address] Performed By: #### L 100.0100, L500.4050 ####[facility] [address] [place], [address] CO2 [Moles/Vol] 21.7 mmol/L Normal 21.0-32.0 [facility] Comment on above: Performed By: #### L 500.3600 ####[facility] [address] [place], [address] Creatinine [Mass/Vol] 3.38 mg/dL High 0.70-1.20 [facility] Comment on above: Performed By: #### L 500.3600 ####[facility] [address] [place], [address] ECRCL 31.04 ml/min Low 50-250 [facility] Comment on above: Performed By: #### L 500.3600 ####[facility] [address] [place], [address] GAP 11 Normal 5-15 [facility] Comment on above: Performed By: #### L 500.3600 ####[facility] [address] [place], [address] GFR/1.73 sq M.predicted among non-blacks MDRD (S/P/Bld) [Vol rate/Area] 20 mL/min/{1.73_m2} Low >60 [facility] Comment on above: Result Comment: mL/m in/1.73m2 CKD-EPI Creatinine Equation (2020) Performed By: #### L 500.3600 ####[facility] [address] [place], [address] Glucose [Mass/Vol] 138 mg/dL High 70-99 [facility] Comment on above: Performed By: #### L 500.3600 ####[facility] [address] [place], [address] Phosphate [Mass/Vol] 5.1 mg/dL High 2.7-4.5 [facility] Comment on above: Performed By: #### L 500.3600 ####[facility] [address] [place], [address] Potassium [Moles/Vol] 3.9 mmol/L Normal 3.3-5.1 [facility] Comment on above: Performed By: #### L 500.3600 ####[facility] [address] [place], [address] Sodium [Moles/Vol] 137 mmol/L Normal 133-145 [facility] Comment on above: Performed By: #### L 500.3600 ####[facility] [address] [place], [address] Performed By: #### L 100.0100, L500.4050 ####[facility] [address] [place], [address] Urea nitrogen [Mass/Vol] 53 mg/dL High 4-19 [facility] Comment on above: Performed By: #### L 500.3600 ####[facility] [address] [place], [address] Performed By: #### L 100.0100, L500.4050 ####[facility] [address] [place], [address] Bedside Glucoseon 05-07-2025 FINGERSTICK GLU 119 mg/dL High 74-106 [facility] Comment on above: Result Comment: KIANA GEMENT OF PATIENT CARE PER NURSING PROTOCOL Performed By: #### L 501.080 ####[facility] [address] [place], [address] FINGERSTICK GLU 132 mg/dL High 74-106 [facility] Comment on above: Result Comment: Dr Marcos rivera FollowedMANAGEMENT OF PATIENT CARE PER NURSING PROTOCOL Performed By: #### L 501.080 ####[facility] [address] [place], [address] FINGERSTICK GLU 137 mg/dL High 74-106 [facility] Comment on above: Result Comment: KIANA GEMENT OF PATIENT CARE PER NURSING PROTOCOL Performed By: #### L 501.080 ####[facility] [address] [place], [address] FINGERSTICK GLU 134 mg/dL High 74-106 [facility] Comment on above: Result Comment: KIANA GEMENT OF PATIENT CARE PER NURSING PROTOCOL Performed By: #### L 501.080 ####[facility] [address] [place], [address] Blood Gases by [facility] 025 BRADLY TEST Positive Normal [facility] Comment on above: Performed By: #### L 9000.0800 ####[facility] [address] [place], [address] Base excess Calc (Bld) [Moles/Vol] -1 mmol/L Normal -2 to +2 [facility] Comment on above: Performed By: #### L 9000.0800 ####[facility] [address] [place], [address] Blood Gas Type ART Normal [facility] Comment on above: Performed By: #### L 9000.0800 ####[facility] [address] [place], [address] CO2 [Moles/Vol] 24 mmol/L Normal [facility] Comment on above: Performed By: #### L 9000.0800 ####[facility] [address] [place], [address] FI02 30.0 Normal [facility] Comment on above: Performed By: #### L 9000.0800 ####[facility] [address] [place], [address] HCO3 (Bld) [Moles/Vol] 22.7 mmol/L Normal 22-26 [facility] Comment on above: Performed By: #### L 9000.0800 ####[facility] [address] [place], [address] Mode AC Normal [facility] Comment on above: Performed By: #### L 9000.0800 ####[facility] [address] [place], [address] O2 Delivery Dev ET Tube Normal [facility] Comment on above: Performed By: #### L 9000.0800 ####[facility] [address] [place], [address] pCO2 31.9 mmHg Low 35-45 [facility] Comment on above: Performed By: #### L 9000.0800 ####[facility] [address] [place], [address] PEEP 5 Normal [facility] Comment on above: Performed By: #### L 9000.0800 ####[facility] [address] [place], [address] pH (Bld) 7.46 [pH] High 7.35-7.45 [facility] Comment on above: Performed By: #### L 9000.0800 ####[facility] [address] [place], [address] PO2 82 mmHG Normal 75-100 [facility] Comment on above: Performed By: #### L 9000.0800 ####[facility] [address] [place], [address] RR 18 Normal [facility] Comment on above: Performed By: #### L 9000.0800 ####[facility] [address] [place], [address] SITE R Radial Normal [facility] Comment on above: Performed By: #### L 9000.0800 ####[facility] [address] [place], [address] SO2 97 Normal 95-99 [facility] Comment on above: Performed By: #### L 9000.0800 ####[facility] [address] [place], [address] Vt 600.0 mL Normal [facility] Comment on above: Performed By: #### L 9000.0800 ####[facility] [address] [place], [address] CBC W/Diff, Automatedon 10-1 -2024 Absolute Lymph 0.80 X10 3/uL Low 0.83-4.51 [facility] Comment on above: Performed By: #### L 100.0100, L500.4050 ####[facility] [address] [place], [address] Absolute Neut 13.7 X10 3/uL High 2.0-7.7 [facility] Comment on above: Performed By: #### L 100.0100, L500.4050 ####[facility] [address] [place], [address] Basophils/100 WBC (Bld) 0.3 % Normal 0-1 [facility] Comment on above: Performed By: #### L 100.0100, L500.4050 ####[facility] [address] [place], [address] Eosinophils/100 WBC (Bld) 0.0 % Normal 0-5 [facility] Comment on above: Performed By: #### L 100.0100, L500.4050 ####[facility] [address] [place], [address] Erythrocyte distribution width (RBC) [Ratio] 15.9 % High 11.6-14.6 [facility] Comment on above: Performed By: #### L 100.0100, L500.4050 ####[facility] [address] [place], [address] Hematocrit (Bld) [Volume fraction] 27.7 % Low 40-54 [facility] Comment on above: Performed By: #### L 100.0100, L500.4050 ####[facility] [address] [place], [address] Hemoglobin (Bld) [Mass/Vol] 9.8 g/dL Low 13.0-16.5 [facility] Comment on above: Performed By: #### L 100.0100, L500.4050 ####[facility] [address] [place], [address] IG% 1.800 High 0.0-0.9 [facility] Comment on above: Result Comment: IG% - Immature Granulocytes (promyelocytes, myelocytes andmetamyelocytes) > 1% indicates that a LEFT SHIFT is Present. Performed By: #### L 100.0100, L500.4050 ####[facility] [address] [place], [address] Lymphocytes/100 WBC (Bld) 5.1 % Low 19-41 [facility] Comment on above: Performed By: #### L 100.0100, L500.4050 ####[facility] [address] [place], [address] MCH (RBC) [Entitic mass] 27.6 pg Normal 27.0-32.0 [facility] Comment on above: Performed By: #### L 100.0100, L500.4050 ####[facility] [address] [place], [address] MCHC (RBC) [Mass/Vol] 35.4 g/dL Normal 32-36 [facility] Comment on above: Performed By: #### L 100.0100, L500.4050 ####[facility] [address] [place], [address] MCV (RBC) [Entitic vol] 78.0 fL Low 80-94 [facility] Comment on above: Performed By: #### L 100.0100, L500.4050 ####[facility] [address] [place], [address] Monocytes/100 WBC (Bld) 6.0 % Normal 0-10 [facility] Comment on above: Performed By: #### L 100.0100, L500.4050 ####[facility] [address] [place], [address] Neutrophils/100 WBC (Bld) 86.8 % High 47-70 [facility] Comment on above: Performed By: #### L 100.0100, L500.4050 ####[facility] [address] [place], [address] Nucleated RBC (Bld) [#/Vol] 0 10*3/uL Normal 0-5 [facility] Comment on above: Performed By: #### L 100.0100, L500.4050 ####[facility] [address] [place], [address] Platelet mean volume (Bld) [Entitic vol] 11.2 fL Normal 6.2-12.0 [facility] Comment on above: Performed By: #### L 100.0100, L500.4050 ####[facility] [address] [place], [address] Platelets (Bld) [#/Vol] 138 10*3/uL Low 150-450 [facility] Comment on above: Performed By: #### L 100.0100, L500.4050 ####[facility] [address] [place], [address] RBC (Bld) [#/Vol] 3.55 10*6/uL Low 4.6-6.2 [facility] Comment on above: Performed By: #### L 100.0100, L500.4050 ####[facility] [address] [place], [address] RDW SD 45.3 fl High 35.1-43.9 [facility] Comment on above: Performed By: #### L 100.0100, L500.4050 ####[facility] [address] [place], [address] WBC (Bld) [#/Vol] 15.8 10*3/uL High 4.4-11.0 [facility] Comment on above: Performed By: #### L 100.0100, L500.4050 ####[facility] [address] [place], [address] Comprehensive Metabolic Prof [facility] 05-07-2025 Albumin [Mass/Vol] 2.5 g/dL Low 3.5-5.0 [facility] Comment on above: Performed By: #### L 100.0100, L500.4050 ####[facility] [address] [place], [address] Albumin/Globulin [Mass ratio] 0.8 {ratio} Low 0.9-2.4 [facility] Comment on above: Performed By: #### L 100.0100, L500.4050 ####[facility] [address] [place], [address] ALK PHOS 102 U/L Normal 40-129 [facility] Comment on above: Performed By: #### L 100.0100, L500.4050 ####[facility] [address] [place], [address] ALT [Catalytic activity/Vol] 30 U/L Normal <=46 [facility] Comment on above: Performed By: #### L 100.0100, L500.4050 ####[facility] [address] [place], [address] AST [Catalytic activity/Vol] 85 U/L High <=37 [facility] Comment on above: Performed By: #### L 100.0100, L500.4050 ####[facility] [address] [place], [address] Bilirubin [Mass/Vol] 1.01 mg/dL Normal 0.00-1.30 [facility] Comment on above: Performed By: #### L 100.0100, L500.4050 ####[facility] [address] [place], [address] BUN/CRE 11.3 RATIO Normal 10-20 [facility] Comment on above: Performed By: #### L 100.0100, L500.4050 ####[facility] [address] [place], [address] Calcium [Mass/Vol] 7.7 mg/dL Normal 7.6-11.0 [facility] Comment on above: Performed By: #### L 100.0100, L500.4050 ####[facility] [address] [place], [address] Chloride [Moles/Vol] 102 mmol/L Normal 98-108 [facility] Comment on above: Performed By: #### L 100.0100, L500.4050 ####[facility] [address] [place], [address] CO2 [Moles/Vol] 21.0 mmol/L Normal 21.0-32.0 [facility] Comment on above: Performed By: #### L 100.0100, L500.4050 ####[facility] [address] [place], [address] Creatinine [Mass/Vol] 2.52 mg/dL High 0.70-1.20 [facility] Comment on above: Performed By: #### L 100.0100, L500.4050 ####[facility] [address] [place], [address] ECRCL 41.63 ml/min Low 50-250 [facility] Comment on above: Performed By: #### L 100.0100, L500.4050 ####[facility] [address] [place], [address] GAP 12 Normal 5-15 [facility] Comment on above: Performed By: #### L 100.0100, L500.4050 ####[facility] [address] [place], [address] GFR/1.73 sq M.predicted among non-blacks MDRD (S/P/Bld) [Vol rate/Area] 29 mL/min/{1.73_m2} Low >60 [facility] Comment on above: Result Comment: mL/m in/1.73m2 CKD-EPI Creatinine Equation (2020) Performed By: #### L 100.0100, L500.4050 ####[facility] [address] [place], [address] Globulin (S) [Mass/Vol] 3.2 g/dL Normal 2.2-4.2 [facility] Comment on above: Performed By: #### L 100.0100, L500.4050 ####[facility] [address] [place], [address] Glucose [Mass/Vol] 153 mg/dL High 70-99 [facility] Comment on above: Performed By: #### L 100.0100, L500.4050 ####[facility] [address] [place], [address] Potassium [Moles/Vol] 3.9 mmol/L Normal 3.3-5.1 [facility] Comment on above: Performed By: #### L 100.0100, L500.4050 ####[facility] [address] [place], [address] Sodium [Moles/Vol] 135 mmol/L Normal 133-145 [facility] Comment on above: Performed By: #### L 100.0100, L500.4050 ####[facility] [address] [place], [address] T PROT 5.7 g/dL Low 5.9-8.4 [facility] Comment on above: Performed By: #### L 100.0100, L500.4050 ####[facility] [address] [place], [address] Urea nitrogen [Mass/Vol] 29 mg/dL High 4-19 [facility] Comment on above: Performed By: #### L 100.0100, L500.4050 ####[facility] [address] [place], [address] Culture, Blood (WB)on 2024 CUB Normal [facility] Comment on above: Performed By: #### M 200.1000 ####[facility] [address] [place], [address] Phosphoruson 05-07-2025 Phosphate [Mass/Vol] 4.1 mg/dL Normal 2.7-4.5 [facility] Comment on above: Performed By: #### L 500.3600, L501.2300 ####[facility] [address] [place], [address] Renal Profileon 05-07-2025 Albumin [Mass/Vol] 2.5 g/dL Low 3.5-5.0 [facility] Comment on above: Performed By: #### L 500.3600 ####[facility] [address] [place], [address] BUN/CRE 14.1 RATIO Normal 10-20 [facility] Comment on above: Performed By: #### L 500.3600 ####[facility] [address] [place], [address] Calcium [Mass/Vol] 7.7 mg/dL Normal 7.6-11.0 [facility] Comment on above: Performed By: #### L 500.3600 ####[facility] [address] [place], [address] Chloride [Moles/Vol] 104 mmol/L Normal 98-108 [facility] Comment on above: Performed By: #### L 500.3600 ####[facility] [address] [place], [address] CO2 [Moles/Vol] 21.8 mmol/L Normal 21.0-32.0 [facility] Comment on above: Performed By: #### L 500.3600 ####[facility] [address] [place], [address] Creatinine [Mass/Vol] 2.75 mg/dL High 0.70-1.20 [facility] Comment on above: Performed By: #### L 500.3600 ####[facility] [address] [place], [address] ECRCL 38.15 ml/min Low 50-250 [facility] Comment on above: Performed By: #### L 500.3600 ####[facility] [address] [place], [address] GAP 12 Normal 5-15 [facility] Comment on above: Performed By: #### L 500.3600 ####[facility] [address] [place], [address] GFR/1.73 sq M.predicted among non-blacks MDRD (S/P/Bld) [Vol rate/Area] 26 mL/min/{1.73_m2} Low >60 [facility] Comment on above: Result Comment: mL/m in/1.73m2 CKD-EPI Creatinine Equation (2020) Performed By: #### L 500.3600 ####[facility] [address] [place], [address] Glucose [Mass/Vol] 131 mg/dL High 70-99 [facility] Comment on above: Performed By: #### L 500.3600 ####[facility] [address] [place], [address] Phosphate [Mass/Vol] 4.8 mg/dL High 2.7-4.5 [facility] Comment on above: Performed By: #### L 500.3600 ####[facility] [address] [place], [address] Potassium [Moles/Vol] 4.0 mmol/L Normal 3.3-5.1 [facility] Comment on above: Performed By: #### L 500.3600 ####[facility] [address] [place], [address] Sodium [Moles/Vol] 138 mmol/L Normal 133-145 [facility] Comment on above: Performed By: #### L 500.3600 ####[facility] [address] [place], [address] Urea nitrogen [Mass/Vol] 39 mg/dL High 4-19 [facility] Comment on above: Performed By: #### L 500.3600 ####[facility] [address] [place], [address] Albumin [Mass/Vol] 2.5 g/dL Low 3.5-5.0 [facility] Comment on above: Performed By: #### L 500.3600 ####[facility] [address] [place], [address] BUN/CRE 13.2 RATIO Normal 10-20 [facility] Comment on above: Performed By: #### L 500.3600 ####[facility] [address] [place], [address] Calcium [Mass/Vol] 7.9 mg/dL Normal 7.6-11.0 [facility] Comment on above: Performed By: #### L 500.3600 ####[facility] [address] [place], [address] Chloride [Moles/Vol] 102 mmol/L Normal 98-108 [facility] Comment on above: Performed By: #### L 500.3600 ####[facility] [address] [place], [address] CO2 [Moles/Vol] 20.6 mmol/L Low 21.0-32.0 [facility] Comment on above: Performed By: #### L 500.3600 ####[facility] [address] [place], [address] Creatinine [Mass/Vol] 2.46 mg/dL High 0.70-1.20 [facility] Comment on above: Performed By: #### L 500.3600 ####[facility] [address] [place], [address] ECRCL 42.65 ml/min Low 50-250 [facility] Comment on above: Performed By: #### L 500.3600 ####[facility] [address] [place], [address] GAP 14 Normal 5-15 [facility] Comment on above: Performed By: #### L 500.3600 ####[facility] [address] [place], [address] GFR/1.73 sq M.predicted among non-blacks MDRD (S/P/Bld) [Vol rate/Area] 30 mL/min/{1.73_m2} Low >60 [facility] Comment on above: Result Comment: mL/m in/1.73m2 CKD-EPI Creatinine Equation (2020) Performed By: #### L 500.3600 ####[facility] [address] [place], [address] Glucose [Mass/Vol] 156 mg/dL High 70-99 [facility] Comment on above: Performed By: #### L 500.3600 ####[facility] [address] [place], [address] Phosphate [Mass/Vol] 5.0 mg/dL High 2.7-4.5 [facility] Comment on above: Performed By: #### L 500.3600 ####[facility] [address] [place], [address] Potassium [Moles/Vol] 4.1 mmol/L Normal 3.3-5.1 [facility] Comment on above: Performed By: #### L 500.3600 ####[facility] [address] [place], [address] Sodium [Moles/Vol] 136 mmol/L Normal 133-145 [facility] Comment on above: Performed By: #### L 500.3600 ####[facility] [address] [place], [address] Urea nitrogen [Mass/Vol] 33 mg/dL High 4-19 [facility] Comment on above: Performed By: #### L 500.3600 ####[facility] [address] [place], [address] ALB Normal 3.5-5.0 [facility] Comment on above: Performed By: #### L 500.3600, L501.2300 ####[facility] [address] [place], [address] BUN Normal 4-19 [facility] Comment on above: Performed By: #### L 500.3600, L501.2300 ####[facility] [address] [place], [address] BUN/CRE Normal 10-20 [facility] Comment on above: Performed By: #### L 500.3600, L501.2300 ####[facility] [address] [place], [address] Calcium Normal 7.6-11.0 [facility] Comment on above: Performed By: #### L 500.3600, L501.2300 ####[facility] [address] [place], [address] CL Normal 98-108 [facility] Comment on above: Performed By: #### L 500.3600, L501.2300 ####[facility] [address] [place], [address] CO2 Normal 21.0-32.0 [facility] Comment on above: Performed By: #### L 500.3600, L501.2300 ####[facility] [address] [place], [address] CREAT,SERUM Normal 0.70-1.20 [facility] Comment on above: Performed By: #### L 500.3600, L501.2300 ####[facility] [address] [place], [address] ECRCL Normal 50-250 [facility] Comment on above: Performed By: #### L 500.3600, L501.2300 ####[facility] [address] [place], [address] eGFR Normal >60 [facility] Comment on above: Result Comment: mL/m in/1.73m2 CKD-EPI Creatinine Equation (2020) Performed By: #### L 500.3600, L501.2300 ####[facility] [address] [place], [address] GAP Normal 5-15 [facility] Comment on above: Performed By: #### L 500.3600, L501.2300 ####[facility] [address] [place], [address] GLU Normal 70-99 [facility] Comment on above: Performed By: #### L 500.3600, L501.2300 ####[facility] [address] [place], [address] Potassium Normal 3.3-5.1 [facility] Comment on above: Performed By: #### L 500.3600, L501.2300 ####[facility] [address] [place], [address] Renal Profile Normal 133-145 [facility] Comment on above: Performed By: #### L 500.3600, L501.2300 ####[facility] [address] [place], [address] Urine Cultureon 05-07-2025 URC Normal [facility] Comment on above: Performed By: #### M 100.2200 ####[facility] [address] [place], [address] Vancomycin, Trough Levelon 1 VANCO, TROUGH 18.8 ug/mL High 5.0-15.0 [facility] Comment on above: Order Comment: Comme nts: Trough to be drawn 30 mins prior to scheduled [id number] Result Comment: Mitesh mmended goal trough ranges [...] therapy recommended for serious lifethreatening infections include:- Mlenksqcke-Ppnsavogocjv-Ckbbqgyta (Ventilator/Healtcare Associated)-SepsisPLEASE CONTACT PHARMACY SERVICES (#3228) FOR INTERPRETATIONOF RESULTS. Performed By: #### L 501.8820 ####[facility] [address] [place], [address] Basic Metabolic Profile (BMP )on 05-06-2025 BUN/CRE 13.5 RATIO Normal - [facility] Comment on above: Performed By: #### L 500.2500, L501.2300, L501.5200 ####[facility] [address] [place], [address] Calcium [Mass/Vol] 7.3 mg/dL Low 7.6-11.0 [facility] Comment on above: Performed By: #### L 500.2500, L501.2300, L501.5200 ####[facility] [address] [place], [address] Chloride [Moles/Vol] 103 mmol/L Normal 98-108 [facility] Comment on above: Performed By: #### L 500.2500, L501.2300, L501.5200 ####[facility] [address] [place], [address] CO2 [Moles/Vol] 19.4 mmol/L Low 21.0-32.0 [facility] Comment on above: Performed By: #### L 500.2500, L501.2300, L501.5200 ####[facility] [address] [place], [address] Creatinine [Mass/Vol] 2.72 mg/dL High 0.70-1.20 [facility] Comment on above: Performed By: #### L 500.2500, L501.2300, L501.5200 ####[facility] [address] [place], [address] ECRCL 38.79 ml/min Low 50-250 [facility] Comment on above: Performed By: #### L 500.2500, L501.2300, L501.5200 ####[facility] [address] [place], [address] GAP 11 Normal 5-15 [facility] Comment on above: Performed By: #### L 500.2500, L501.2300, L501.5200 ####[facility] [address] [place], [address] GFR/1.73 sq M.predicted among non-blacks MDRD (S/P/Bld) [Vol rate/Area] 26 mL/min/{1.73_m2} Low >60 [facility] Comment on above: Result Comment: mL/m in/1.73m2 CKD-EPI Creatinine Equation (2020) Performed By: #### L 500.2500, L501.2300, L501.5200 ####[facility] [address] [place], [address] Glucose [Mass/Vol] 189 mg/dL High 70-99 [facility] Comment on above: Performed By: #### L 500.2500, L501.2300, L501.5200 ####[facility] [address] [place], [address] Potassium [Moles/Vol] 3.4 mmol/L Normal 3.3-5.1 [facility] Comment on above: Performed By: #### L 500.2500, L501.2300, L501.5200 ####[facility] [address] [place], [address] Sodium [Moles/Vol] 133 mmol/L Normal 133-145 [facility] Comment on above: Performed By: #### L 500.2500, L501.2300, L501.5200 ####[facility] [address] [place], [address] Urea nitrogen [Mass/Vol] 37 mg/dL High 4-19 [facility] Comment on above: Performed By: #### L 500.2500, L501.2300, L501.5200 ####[facility] [address] [place], [address] Bedside Glucoseon 05-06-2025 FINGERSTICK GLU 104 mg/dL Normal 74-106 [facility] Comment on above: Result Comment: KIANA GEMENT OF PATIENT CARE PER NURSING PROTOCOL Performed By: #### L 501.080 ####[facility] [address] [place], [address] FINGERSTICK GLU 140 mg/dL High 74-106 [facility] Comment on above: Result Comment: KIANA GEMENT OF PATIENT CARE PER NURSING PROTOCOL Performed By: #### L 501.080 ####[facility] [address] [place], [address] FINGERSTICK GLU 136 mg/dL High 74-106 [facility] Comment on above: Result Comment: KIANA GEMENT OF PATIENT CARE PER NURSING PROTOCOL Performed By: #### L 501.080 ####[facility] [address] [place], [address] FINGERSTICK GLU 143 mg/dL High 74-106 [facility] Comment on above: Result Comment: KIANA GEMENT OF PATIENT CARE PER NURSING PROTOCOL Performed By: #### L 501.080 ####[facility] [address] [place], [address] FINGERSTICK GLU 149 mg/dL High 74-106 [facility] Comment on above: Result Comment: KIANA GEMENT OF PATIENT CARE PER NURSING PROTOCOL Performed By: #### L 501.080 ####[facility] [address] [place], [address] FINGERSTICK GLU 126 mg/dL High 74-106 [facility] Comment on above: Result Comment: KIANA GEMENT OF PATIENT CARE PER NURSING PROTOCOL Performed By: #### L 501.080 ####[facility] [address] [place], [address] FINGERSTICK GLU 123 mg/dL High 74-106 [facility] Comment on above: Result Comment: KIANA GEMENT OF PATIENT CARE PER NURSING PROTOCOL Performed By: #### L 501.080 ####[facility] [address] [place], [address] FINGERSTICK GLU 135 mg/dL High 74-106 [facility] Comment on above: Result Comment: KIANA GEMENT OF PATIENT CARE PER NURSING PROTOCOL Performed By: #### L 501.080 ####[facility] [address] [place], [address] FINGERSTICK GLU 113 mg/dL High 74-106 [facility] Comment on above: Result Comment: KIANA GEMENT OF PATIENT CARE PER NURSING PROTOCOL Performed By: #### L 501.080 ####[facility] [address] [place], [address] FINGERSTICK GLU 172 mg/dL High 74-106 [facility] Comment on above: Result Comment: KIANA GEMENT OF PATIENT CARE PER NURSING PROTOCOL Performed By: #### L 501.080 ####[facility] [address] [place], [address] FINGERSTICK GLU 148 mg/dL High 74-106 [facility] Comment on above: Result Comment: KIANA GEMENT OF PATIENT CARE PER NURSING PROTOCOL Performed By: #### L 501.080 ####[facility] [address] [place], [address] FINGERSTICK GLU 118 mg/dL High 74-106 [facility] Comment on above: Result Comment: KIANA GEMENT OF PATIENT CARE PER NURSING PROTOCOL Performed By: #### L 501.080 ####[facility] [address] [place], [address] FINGERSTICK GLU 53 mg/dL Low 74-106 [facility] Comment on above: Result Comment: KIANA GEMENT OF PATIENT CARE PER NURSING PROTOCOL Performed By: #### L 501.080 ####[facility] [address] [place], [address] FINGERSTICK GLU 116 mg/dL High 74-106 [facility] Comment on above: Result Comment: KIANA GEMENT OF PATIENT CARE PER NURSING PROTOCOL Performed By: #### L 501.080 ####[facility] [address] [place], [address] FINGERSTICK GLU 125 mg/dL High 74-106 [facility] Comment on above: Result Comment: KIANA GEMENT OF PATIENT CARE PER NURSING PROTOCOL Performed By: #### L 501.080 ####[facility] [address] [place], [address] FINGERSTICK GLU 127 mg/dL High 74-106 [facility] Comment on above: Result Comment: KIANA GEMENT OF PATIENT CARE PER NURSING PROTOCOL Performed By: #### L 501.080 ####[facility] [address] [place], [address] FINGERSTICK GLU 83 mg/dL Normal 74-106 [facility] Comment on above: Result Comment: KIANA GEMENT OF PATIENT CARE PER NURSING PROTOCOL Performed By: #### L 501.080 ####[facility] [address] [place], [address] FINGERSTICK GLU 115 mg/dL High 74-106 [facility] Comment on above: Result Comment: KIANA GEMENT OF PATIENT CARE PER NURSING PROTOCOL Performed By: #### L 501.080 ####[facility] [address] [place], [address] FINGERSTICK GLU 90 mg/dL Normal 74-106 [facility] Comment on above: Result Comment: KIANA GEMENT OF PATIENT CARE PER NURSING PROTOCOL Performed By: #### L 501.080 ####[facility] [address] [place], [address] FINGERSTICK GLU 120 mg/dL High 74-106 [facility] Comment on above: Result Comment: KIANA GEMENT OF PATIENT CARE PER NURSING PROTOCOL Performed By: #### L 501.080 ####[facility] [address] [place], [address] FINGERSTICK GLU 72 mg/dL Low 74-106 [facility] Comment on above: Result Comment: KIANA GEMENT OF PATIENT CARE PER NURSING PROTOCOL Performed By: #### L 501.080 ####[facility] [address] [place], [address] FINGERSTICK GLU 153 mg/dL High 74-106 [facility] Comment on above: Result Comment: KIANA GEMENT OF PATIENT CARE PER NURSING PROTOCOL Performed By: #### L 501.080 ####[facility] [address] [place], [address] Blood Gases by [facility] 025 BRADLY TEST N/A Normal [facility] Comment on above: Performed By: #### L 9000.0800 ####[facility] [address] [place], [address] Base excess Calc (Bld) [Moles/Vol] -2 mmol/L Normal -2 to +2 [facility] Comment on above: Performed By: #### L 9000.0800 ####[facility] [address] [place], [address] Blood Gas Type ART Normal [facility] Comment on above: Performed By: #### L 8999.08 ####[facility] [address] [place], [address] CO2 [Moles/Vol] 24 mmol/L Normal [facility] Comment on above: Performed By: #### L 8999.0800 ####[facility] [address] [place], [address] FI02 21.0 Normal [facility] Comment on above: Performed By: #### L 8999.08 ####[facility] [address] [place], [address] HCO3 (Bld) [Moles/Vol] 22.6 mmol/L Normal 22-26 [facility] Comment on above: Performed By: #### L 8999.08 ####[facility] [address] [place], [address] Mode AC Normal [facility] Comment on above: Performed By: #### L 8999.08 ####[facility] [address] [place], [address] O2 Delivery Dev Adult Vent Normal [facility] Comment on above: Performed By: #### L 8999.0800 ####[facility] [address] [place], [address] pCO2 33.2 mmHg Low 35-45 [facility] Comment on above: Performed By: #### L 8999.08 ####[facility] [address] [place], [address] PEEP 5 Normal [facility] Comment on above: Performed By: #### L 8999.0800 ####[facility] [address] [place], [address] pH (Bld) 7.44 [pH] Normal 7.35-7.45 [facility] Comment on above: Performed By: #### L 9000.0800 ####[facility] [address] [place], [address] PO2 53 mmHG Low 75-100 [facility] Comment on above: Performed By: #### L 9000.0800 ####[facility] [address] [place], [address] RR 18 Normal [facility] Comment on above: Performed By: #### L 9000.0800 ####[facility] [address] [place], [address] SITE L Radial Normal [facility] Comment on above: Performed By: #### L 9000.0800 ####[facility] [address] [place], [address] SO2 88 Low 95-99 [facility] Comment on above: Performed By: #### L 9000.0800 ####[facility] [address] [place], [address] Vt 600.0 mL Normal [facility] Comment on above: Performed By: #### L 9000.0800 ####[facility] [address] [place], [address] CBC W/Diff, Automatedon 04-26 Absolute Lymph 0.80 X10 3/uL Low 0.83-4.51 [facility] Comment on above: Performed By: #### L 100.0100 ####[facility] [address] [place], [address] Absolute Neut 17.3 X10 3/uL High 2.0-7.7 [facility] Comment on above: Performed By: #### L 100.0100 ####[facility] [address] [place], [address] Basophils/100 WBC (Bld) 0.2 % Normal 0-1 [facility] Comment on above: Performed By: #### L 100.0100 ####[facility] [address] [place], [address] Eosinophils/100 WBC (Bld) 0.2 % Normal 0-5 [facility] Comment on above: Performed By: #### L 100.0100 ####[facility] [address] [place], [address] Erythrocyte distribution width (RBC) [Ratio] 15.6 % High 11.6-14.6 [facility] Comment on above: Performed By: #### L 100.0100 ####[facility] [address] [place], [address] Hematocrit (Bld) [Volume fraction] 27.3 % Low 40-54 [facility] Comment on above: Performed By: #### L 100.0100 ####[facility] [address] [place], [address] Hemoglobin (Bld) [Mass/Vol] 10.1 g/dL Low 13.0-16.5 [facility] Comment on above: Performed By: #### L 100.0100 ####[facility] [address] [place], [address] IG% 3.400 High 0.0-0.9 [facility] Comment on above: Result Comment: IG% - Immature Granulocytes (promyelocytes, myelocytes andmetamyelocytes) > 1% indicates that a LEFT SHIFT is Present. Performed By: #### L 100.0100 ####[facility] [address] [place], [address] Lymphocytes/100 WBC (Bld) 4.0 % Low 19-41 [facility] Comment on above: Performed By: #### L 100.0100 ####[facility] [address] [place], [address] MCH (RBC) [Entitic mass] 28.1 pg Normal 27.0-32.0 [facility] Comment on above: Performed By: #### L 100.0100 ####[facility] [address] [place], [address] MCHC (RBC) [Mass/Vol] 37.0 g/dL High 32-36 [facility] Comment on above: Performed By: #### L 100.0100 ####[facility] [address] [place], [address] MCV (RBC) [Entitic vol] 76.0 fL Low 80-94 [facility] Comment on above: Performed By: #### L 100.0100 ####[facility] [address] [place], [address] Monocytes/100 WBC (Bld) 4.9 % Normal 0-10 [facility] Comment on above: Performed By: #### L 100.0100 ####[facility] [address] [place], [address] Neutrophils/100 WBC (Bld) 87.3 % High 47-70 [facility] Comment on above: Performed By: #### L 100.0100 ####[facility] [address] [place], [address] Nucleated RBC (Bld) [#/Vol] 0 10*3/uL Normal 0-5 [facility] Comment on above: Performed By: #### L 100.0100 ####[facility] [address] [place], [address] Platelet mean volume (Bld) [Entitic vol] 10.9 fL Normal 6.2-12.0 [facility] Comment on above: Performed By: #### L 100.0100 ####[facility] [address] [place], [address] Platelets (Bld) [#/Vol] 136 10*3/uL Low 150-450 [facility] Comment on above: Performed By: #### L 100.0100 ####[facility] [address] [place], [address] RBC (Bld) [#/Vol] 3.59 10*6/uL Low 4.6-6.2 [facility] Comment on above: Performed By: #### L 100.0100 ####[facility] [address] [place], [address] RDW SD 43.3 fl Normal 35.1-43.9 [facility] Comment on above: Performed By: #### L 100.0100 ####[facility] [facility] [address] [place], [address] WBC (Bld) [#/Vol] 19.8 10*3/uL High 4.4-11.0 [facility] Comment on above: Performed By: #### L 100.0100 ####[facility] [address] [place], [address] Chest 1 View (Portable)on Chest 1 View (Portable) Normal [facility] Electrolyte Panelon 05-06-20 25 Chloride [Moles/Vol] 105 mmol/L Normal 98-108 [facility] Comment on above: Performed By: #### L 501.5200, L501.5294, L501.2300 ####[facility] [address] [place], [address] CO2 [Moles/Vol] 21.0 mmol/L Normal 21.0-32.0 [facility] Comment on above: Performed By: #### L 501.5200, L501.5294, L501.2300 ####[facility] [address] [place], [address] GAP 10 Normal 5-15 [facility] Comment on above: Performed By: #### L 501.5200, L501.5294, L501.2300 ####[facility] [address] [place], [address] Potassium [Moles/Vol] 3.4 mmol/L Normal 3.3-5.1 [facility] Comment on above: Performed By: #### L 501.5200, L501.5294, L501.2300 ####[facility] [address] [place], [address] Sodium [Moles/Vol] 136 mmol/L Normal 133-145 [facility] Comment on above: Performed By: #### L 501.5200, L501.5294, L501.2300 ####[facility] [address] [place], [address] Chloride [Moles/Vol] 105 mmol/L Normal 98-108 [facility] Comment on above: Performed By: #### L 501.2300, L501.5200, L501.5294 ####[facility] [address] [place], [address] CO2 [Moles/Vol] 21.0 mmol/L Normal 21.0-32.0 [facility] Comment on above: Performed By: #### L 501.2300, L501.5200, L501.5294 ####[facility] [address] [place], [address] GAP 10 Normal 5-15 [facility] Comment on above: Performed By: #### L 501.2300, L501.5200, L501.5294 ####[facility] [address] [place], [address] Potassium [Moles/Vol] 3.4 mmol/L Normal 3.3-5.1 [facility] Comment on above: Performed By: #### L 501.2300, L501.5200, L501.5294 ####[facility] [address] [place], [address] Sodium [Moles/Vol] 135 mmol/L Normal 133-145 [facility] Comment on above: Performed By: #### L 501.2300, L501.5200, L501.5294 ####[facility] [address] [place], [address] Chloride [Moles/Vol] 103 mmol/L Normal 98-108 [facility] Comment on above: Performed By: #### L 501.5294, L501.2300, L501.5200 ####[facility] [address] [place], [address] CO2 [Moles/Vol] 20.2 mmol/L Low 21.0-32.0 [facility] Comment on above: Performed By: #### L 501.5294, L501.2300, L501.5200 ####[facility] [address] [place], [address] GAP 10 Normal 5-15 [facility] Comment on above: Performed By: #### L 501.5294, L501.2300, L501.5200 ####[facility] [address] [place], [address] Potassium [Moles/Vol] 3.2 mmol/L Low 3.3-5.1 [facility] Comment on above: Performed By: #### L 501.5294, L501.2300, L501.5200 ####[facility] [address] [place], [address] Sodium [Moles/Vol] 134 mmol/L Normal 133-145 [facility] Comment on above: Performed By: #### L 501.5294, L501.2300, L501.5200 ####[facility] [address] [place], [address] Chloride [Moles/Vol] 103 mmol/L Normal 98-108 [facility] Comment on above: Performed By: #### L 501.5200, L501.5294, L501.2300 ####[facility] [address] [place], [address] CO2 [Moles/Vol] 18.6 mmol/L Low 21.0-32.0 [facility] Comment on above: Performed By: #### L 501.5200, L501.5294, L501.2300 ####[facility] [address] [place], [address] GAP 12 Normal 5-15 [facility] Comment on above: Performed By: #### L 501.5200, L501.5294, L501.2300 ####[facility] [address] [place], [address] Potassium [Moles/Vol] 3.2 mmol/L Low 3.3-5.1 [facility] Comment on above: Performed By: #### L 501.5200, L501.5294, L501.2300 ####[facility] [address] [place], [address] Sodium [Moles/Vol] 134 mmol/L Normal 133-145 [facility] Comment on above: Performed By: #### L 501.5200, L501.5294, L501.2300 ####[facility] [address] [place], [address] Magnesiumon 05-06-2025 Magnesium [Mass/Vol] 2.3 mg/dL High 1.5-2.2 [facility] Comment on above: Performed By: #### L 501.5200, L501.5294, L501.2300 ####[facility] [address] [place], [address] Magnesium [Mass/Vol] 2.2 mg/dL Normal 1.5-2.2 [facility] Comment on above: Performed By: #### L 501.2300, L501.5200, L501.5294 ####[facility] [address] [place], [address] Magnesium [Mass/Vol] 2.1 mg/dL Normal 1.5-2.2 [facility] Comment on above: Performed By: #### L 500.2500, L501.2300, L501.5200 ####[facility] [address] [place], [address] Magnesium [Mass/Vol] 2.1 mg/dL Normal 1.5-2.2 [facility] Comment on above: Performed By: #### L 501.5294, L501.2300, L501.5200 ####[facility] [address] [place], [address] Magnesium [Mass/Vol] 2.1 mg/dL Normal 1.5-2.2 [facility] Comment on above: Performed By: #### L 501.5200, L501.5294, L501.2300 ####[facility] [address] [place], [address] Phosphoruson 05-06-2025 Phosphate [Mass/Vol] 3.0 mg/dL Normal 2.7-4.5 [facility] Comment on above: Performed By: #### L 501.5200, L501.5294, L501.2300 ####[facility] [address] [place], [address] Phosphate [Mass/Vol] 3.3 mg/dL Normal 2.7-4.5 [facility] Comment on above: Performed By: #### L 501.2300, L501.5200, L501.5294 ####[facility] [address] [place], [address] Phosphate [Mass/Vol] 2.8 mg/dL Normal 2.7-4.5 [facility] Comment on above: Performed By: #### L 500.2500, L501.2300, L501.5200 ####[facility] [address] [place], [address] Phosphate [Mass/Vol] 2.5 mg/dL Low 2.7-4.5 [facility] Comment on above: Performed By: #### L 501.5294, L501.2300, L501.5200 ####[facility] [address] [place], [address] Phosphate [Mass/Vol] 2.8 mg/dL Normal 2.7-4.5 [facility] Comment on above: Performed By: #### L 501.5200, L501.5294, L501.2300 ####[facility] [address] [place], [address] Respiratory Cultureon 2024 RESPC Normal [facility] Comment on above: Performed By: #### M 100.2400, M100.2000 ####[facility] [address] [place], [address] Vancomycin, Trough Levelon 1 VANCO, TROUGH 16.7 ug/mL High 5.0-15.0 [facility] Comment on above: Order Comment: Comme nts: DRAW 30 MIN PRIOR TO [id number] Result Comment: Mitesh mmended goal trough ranges [...] therapy recommended for serious lifethreatening infections include:- Zbkdsntprd-Cdcqdqjklltx-Xysjydhcy (Ventilator/Healtcare Associated)-SepsisPLEASE CONTACT PHARMACY SERVICES (#0086) FOR INTERPRETATIONOF RESULTS. Performed By: #### L 501.8820 ####[facility] [address] [place], [address] Basic Metabolic Profile (BMP )on 05-05-2025 BUN/CRE 18.7 RATIO Normal 05-15 [facility] Comment on above: Performed By: #### L 500.2500, L501.5200, L500.3600 ####[facility] [address] [place], [address] Calcium [Mass/Vol] 6.9 mg/dL Low 7.6-11.0 [facility] Comment on above: Performed By: #### L 500.2500, L501.5200, L500.3600 ####[facility] [address] [place], [address] CO2 [Moles/Vol] 8.8 mmol/L Invalid Interpretation Code 21.0-32.0 [facility] Comment on above: Result Comment: Crit ical Result(s) Called at:04:00 05-05-25 to Barbara Ruby: Paz Canseco??Results read back by same. Performed By: #### L 500.2500, L501.5200, L500.3600 ####[facility] [address] [place], [address] Creatinine [Mass/Vol] 4.60 mg/dL High 0.70-1.20 [facility] Comment on above: Performed By: #### L 500.2500, L501.5200, L500.3600 ####[facility] [address] [place], [address] ECRCL 22.74 ml/min Low 50-250 [facility] Comment on above: Performed By: #### L 500.2500, L501.5200, L500.3600 ####[facility] [address] [place], [address] GAP 24 High 5-15 [facility] Comment on above: Performed By: #### L 500.2500, L501.5200, L500.3600 ####[facility] [address] [place], [address] GFR/1.73 sq M.predicted among non-blacks MDRD (S/P/Bld) [Vol rate/Area] 14 mL/min/{1.73_m2} Low >60 [facility] Comment on above: Result Comment: mL/m in/1.73m2 CKD-EPI Creatinine Equation (2020) Performed By: #### L 500.2500, L501.5200, L500.3600 ####[facility] [address] [place], [address] Glucose [Mass/Vol] 223 mg/dL High 70-99 [facility] Comment on above: Performed By: #### L 500.2500, L501.5200, L500.3600 ####[facility] [address] [place], [address] Potassium [Moles/Vol] 3.9 mmol/L Normal 3.3-5.1 [facility] Comment on above: Performed By: #### L 500.2500, L501.5200, L500.3600 ####[facility] [address] [place], [address] Sodium [Moles/Vol] 134 mmol/L Normal 133-145 [facility] Comment on above: Performed By: #### L 500.2500, L501.5200, L500.3600 ####[facility] [address] [place], [address] Urea nitrogen [Mass/Vol] 86 mg/dL High 4-19 [facility] Comment on above: Performed By: #### L 500.2500, L501.5200, L500.3600 ####[facility] [address] [place], [address] CO2 [Moles/Vol] 5.9 mmol/L Invalid Interpretation Code 21.0-32.0 [facility] Comment on above: Result Comment: Crit ical Result(s) Called at:00:05-05-25 TO ADELAIDA Arnold: PAZ CANSECO??Results read back by same.Critical Result(s) Called at: 00:05-05-25 TO ADELAIDA Arnold: PAZ CANSECO ??Results read back by same. AMENDED REPORT 05/05/2534 CO2 previously reported as: 6.8 *L mmol/LCritical Result(s) Called at:00:05-05-25 TO ADELAIDA Arnold: PAZ CANSECO??Results read back by same. Performed By: #### L 500.2500, L501.9520, L501.5200 ####[facility] [address] [place], [address] GAP 23 High 5-15 [facility] Comment on above: Result Comment: AMENDED REPORT 05/05/2534 GAP previously reported as: 22 H Performed By: #### L 500.2500, L501.9520, L501.5200 ####[facility] [address] [place], [address] Bedside Glucoseon 05-05-2025 FINGERSTICK GLU 110 mg/dL High 74-106 [facility] Comment on above: Result Comment: KIANA GEMENT OF PATIENT CARE PER NURSING PROTOCOL Performed By: #### L 501.080 ####[facility] [address] [place], [address] FINGERSTICK GLU 120 mg/dL High 74-106 [facility] Comment on above: Result Comment: KIANA GEMENT OF PATIENT CARE PER NURSING PROTOCOL Performed By: #### L 501.080 ####[facility] [address] [place], [address] FINGERSTICK GLU 143 mg/dL High 74-106 [facility] Comment on above: Result Comment: KIANA GEMENT OF PATIENT CARE PER NURSING PROTOCOL Performed By: #### L 501.080 ####[facility] [address] [place], [address] FINGERSTICK GLU 114 mg/dL High 74-106 [facility] Comment on above: Result Comment: KIANA GEMENT OF PATIENT CARE PER NURSING PROTOCOL Performed By: #### L 501.080 ####[facility] [address] [place], [address] FINGERSTICK GLU 146 mg/dL High 74-106 [facility] Comment on above: Result Comment: KIANA GEMENT OF PATIENT CARE PER NURSING PROTOCOL Performed By: #### L 501.080 ####[facility] [address] [place], [address] FINGERSTICK GLU 151 mg/dL High 74-106 [facility] Comment on above: Result Comment: KIANA GEMENT OF PATIENT CARE PER NURSING PROTOCOL Performed By: #### L 501.080 ####[facility] [address] [place], [address] FINGERSTICK GLU 140 mg/dL High 74-106 [facility] Comment on above: Result Comment: KAINA GEMENT OF PATIENT CARE PER NURSING PROTOCOL Performed By: #### L 501.080 ####[facility] [address] [place], [address] FINGERSTICK GLU 172 mg/dL High 74-106 [facility] Comment on above: Result Comment: KIANA GEMENT OF PATIENT CARE PER NURSING PROTOCOL Performed By: #### L 501.080 ####[facility] [address] [place], [address] Beta-Hydroxbytyrateon 2024 BETA-HYDROXYBUT 1.7 mmol/L High 0.0-0.3 [facility] Comment on above: Order Comment: Comme nts: please add onto 829 blood draw Performed By: #### L 501.6900 ####[facility] [address] [place], [address] Blood Gases by CPSon 025 Base excess Calc (Bld) [Moles/Vol] -7 mmol/L Low -2 to +2 [facility] Comment on above: Performed By: #### L 9000.0800 ####[facility] [address] [place], [address] CO2 [Moles/Vol] 20 mmol/L Normal [facility] Comment on above: Performed By: #### L 9000.0800 ####[facility] [address] [place], [address] HCO3 (Bld) [Moles/Vol] 18.7 mmol/L Low 22-26 [facility] Comment on above: Performed By: #### L 9000.0800 ####[facility] [address] [place], [address] pCO2 34.5 mmHg Low 35-45 [facility] Comment on above: Performed By: #### L 9000.0800 ####[facility] [address] [place], [address] pH (Bld) 7.34 [pH] Low 7.35-7.45 [facility] Comment on above: Performed By: #### L 9000.0800 ####[facility] [address] [place], [address] PO2 88 mmHG Normal 75-100 [facility] Comment on above: Performed By: #### L 9000.0800 ####[facility] [address] [place], [address] RR 18 Normal [facility] Comment on above: Performed By: #### L 9000.0800 ####[facility] [address] [place], [address] SO2 96 Normal 95-99 [facility] Comment on above: Performed By: #### L 9000.0800 ####[facility] [address] [place], [address] BRADLY TEST Positive Normal [facility] Comment on above: Performed By: #### L 9000.0800 ####[facility] [address] [place], [address] Base excess Calc (Bld) [Moles/Vol] -13 mmol/L Low -2 to +2 [facility] Comment on above: Performed By: #### L 9000.0800 ####[facility] [address] [place], [address] Blood Gas Type ART Normal [facility] Comment on above: Performed By: #### L 9000.0800 ####[facility] [address] [place], [address] CO2 [Moles/Vol] 14 mmol/L Normal [facility] Comment on above: Performed By: #### L 9000.0800 ####[facility] [address] [place], [address] FI02 30.0 Normal [facility] Comment on above: Performed By: #### L 9000.0800 ####[facility] [address] [place], [address] HCO3 (Bld) [Moles/Vol] 13.2 mmol/L Low 22-26 [facility] Comment on above: Performed By: #### L 9000.0800 ####[facility] [address] [place], [address] Mode AC Normal [facility] Comment on above: Performed By: #### L 9000.0800 ####[facility] [address] [place], [address] O2 Delivery Dev Adult Vent Normal [facility] Comment on above: Performed By: #### L 9000.0800 ####[facility] [address] [place], [address] pCO2 25.1 mmHg Low 35-45 [facility] Comment on above: Performed By: #### L 9000.0800 ####[facility] [address] [place], [address] PEEP 5 Normal [facility] Comment on above: Performed By: #### L 9000.0800 ####[facility] [address] [place], [address] pH (Bld) 7.33 [pH] Low 7.35-7.45 [facility] Comment on above: Performed By: #### L 9000.0800 ####[facility] [address] [place], [address] PO2 91 mmHG Normal 75-100 [facility] Comment on above: Performed By: #### L 9000.0800 ####[facility] [address] [place], [address] RR 24 Normal [facility] Comment on above: Performed By: #### L 9000.0800 ####[facility] [address] [place], [address] SITE L Radial Normal [facility] Comment on above: Performed By: #### L 9000.0800 ####[facility] [address] [place], [address] SO2 97 Normal 95-99 [facility] Comment on above: Performed By: #### L 0.0800 ####[facility] [address] [place], [address] Vt 600.0 mL Normal [facility] Comment on above: Performed By: #### L 0.08 ####[facility] [address] [place], [address] BRADLY TEST N/A Normal [facility] Comment on above: Performed By: #### L 0.0800 ####[facility] [address] [place], [address] Base excess Calc (Bld) [Moles/Vol] -22 mmol/L Low -2 to +2 [facility] Comment on above: Performed By: #### L 0.0800 ####[facility] [address] [place], [address] Blood Gas Type ART Normal [facility] Comment on above: Performed By: #### L 0.0800 ####[facility] [address] [place], [address] CO2 [Moles/Vol] 8 mmol/L [facility] Comment on above: Performed By: #### L 0.0800 ####[facility] [address] [place], [address] FI02 50.0 [facility] Comment on above: Performed By: #### L 0.0800 ####[facility] [address] [place], [address] HCO3 (Bld) [Moles/Vol] 7.0 mmol/L Low 22-26 [facility] Comment on above: Performed By: #### L 0.0800 ####[facility] [address] [place], [address] Mode AC Normal [facility] Comment on above: Performed By: #### L 9000.0800 ####[facility] [address] [place], [address] O2 Delivery Dev Adult Vent Normal [facility] Comment on above: Performed By: #### L 9000.0800 ####[facility] [address] [place], [address] pCO2 21.0 mmHg Low 35-45 [facility] Comment on above: Performed By: #### L 9000.0800 ####[facility] [address] [place], [address] PEEP 5 Normal [facility] Comment on above: Performed By: #### L 9000.0800 ####[facility] [address] [place], [address] pH (Bld) 7.13 [pH] Invalid Interpretation Code 7.35-7.45 [facility] Comment on above: Performed By: #### L 0.0800 ####[facility] [address] [place], [address] PO2 105 mmHG High 75-100 [facility] Comment on above: Performed By: #### L 0.0800 ####[facility] [address] [place], [address] Read Back By Yes Normal [facility] Comment on above: Performed By: #### L 0.0800 ####[facility] [address] [place], [address] Results To Tele physician Normal [facility] Comment on above: Performed By: #### L 8999.0800 ####[facility] [address] [place], [address] RR 24 Normal [facility] Comment on above: Performed By: #### L 0.0800 ####[facility] [address] [place], [address] SITE L Radial Normal [facility] Comment on above: Performed By: #### L 9000.0800 ####[facility] [address] [place], [address] SO2 96 Normal 95-99 [facility] Comment on above: Performed By: #### L 9000.0800 ####[facility] [address] [place], [address] Time Given 01:10:28 Normal [facility] Comment on above: Performed By: #### L 9000.0800 ####[facility] [address] [place], [address] Vt 600.0 mL Normal [facility] Comment on above: Performed By: #### L 9000.0800 ####[facility] [address] [place], [address] CBC-Complete Blood Cnt No Di ffon 05-05-2025 Erythrocyte distribution width (RBC) [Ratio] 15.8 % High 11.6-14.6 [facility] Comment on above: Performed By: #### L 100.0500 ####[facility] [address] [place], [address] Hematocrit (Bld) [Volume fraction] 30.8 % Low 40-54 [facility] Comment on above: Performed By: #### L 100.0500 ####[facility] [address] [place], [address] Hemoglobin (Bld) [Mass/Vol] 10.8 g/dL Low 13.0-16.5 [facility] Comment on above: Performed By: #### L 100.0500 ####[facility] [address] [place], [address] MCH (RBC) [Entitic mass] 27.5 pg Normal 27.0-32.0 [facility] Comment on above: Performed By: #### L 100.0500 ####[facility] [address] [place], [address] MCHC (RBC) [Mass/Vol] 35.1 g/dL Normal 32-36 [facility] Comment on above: Performed By: #### L 100.0500 ####[facility] [address] [place], [address] MCV (RBC) [Entitic vol] 78.4 fL Low 80-94 [facility] Comment on above: Performed By: #### L 100.0500 ####[facility] [address] [place], [address] Platelet mean volume (Bld) [Entitic vol] 10.7 fL Normal 6.2-12.0 [facility] Comment on above: Performed By: #### L 100.0500 ####[facility] [address] [place], [address] Platelets (Bld) [#/Vol] 221 10*3/uL Normal 150-450 [facility] Comment on above: Performed By: #### L 100.0500 ####[facility] [address] [place], [address] RBC (Bld) [#/Vol] 3.93 10*6/uL Low 4.6-6.2 [facility] Comment on above: Performed By: #### L 100.0500 ####[facility] [address] [place], [address] RDW SD 45.2 fl High 35.1-43.9 [facility] Comment on above: Performed By: #### L 100.0500 ####[facility] [address] [place], [address] WBC (Bld) [#/Vol] 20.7 10*3/uL High 4.4-11.0 [facility] Comment on above: Performed By: #### L 100.0500 ####[facility] [address] [place], [address] Consultation - Nephrologyon 05-05-2025 Consultation - Nephrology Normal [facility] Electrolyte Panelon 05-05-20 25 Chloride [Moles/Vol] 104 mmol/L Normal 98-108 [facility] Comment on above: Performed By: #### L 501.5200, L501.2300, L501.5294 ####[facility] [address] [place], [address] CO2 [Moles/Vol] 18.3 mmol/L Low 21.0-32.0 [facility] Comment on above: Performed By: #### L 501.5200, L501.2300, L501.5294 ####[facility] [address] [place], [address] GAP 13 Normal 5-15 [facility] Comment on above: Performed By: #### L 501.5200, L501.2300, L501.5294 ####[facility] [address] [place], [address] Potassium [Moles/Vol] 3.2 mmol/L Low 3.3-5.1 [facility] Comment on above: Performed By: #### L 501.5200, L501.2300, L501.5294 ####[facility] [address] [place], [address] Sodium [Moles/Vol] 135 mmol/L Normal 133-145 [facility] Comment on above: Performed By: #### L 501.5200, L501.2300, L501.5294 ####[facility] [address] [place], [address] Chloride [Moles/Vol] 104 mmol/L Normal 98-108 [facility] Comment on above: Performed By: #### L 501.5200, L501.5294, L501.2300 ####[facility] [address] [place], [address] CO2 [Moles/Vol] 17.3 mmol/L Low 21.0-32.0 [facility] Comment on above: Performed By: #### L 501.5200, L501.5294, L501.2300 ####[facility] [address] [place], [address] GAP 15 Normal 5-15 [facility] Comment on above: Performed By: #### L 501.5200, L501.5294, L501.2300 ####[facility] [address] [place], [address] Potassium [Moles/Vol] 3.2 mmol/L Low 3.3-5.1 [facility] Comment on above: Performed By: #### L 501.5200, L501.5294, L501.2300 ####[facility] [address] [place], [address] Sodium [Moles/Vol] 136 mmol/L Normal 133-145 [facility] Comment on above: Performed By: #### L 501.5200, L501.5294, L501.2300 ####[facility] [address] [place], [address] Lactic Acidon 05-05-2025 Lactate [Moles/Vol] mmol/L Normal 0.0-2.0 [facility] Comment on above: Order Comment: Y Performed By: #### L 503.6005 ####[facility] [address] [place], [address] Magnesiumon 05-05-2025 Magnesium [Mass/Vol] 2.4 mg/dL High 1.5-2.2 [facility] Comment on above: Performed By: #### L 501.5200, L501.2300, L501.5294 ####[facility] [address] [place], [address] Magnesium [Mass/Vol] 2.3 mg/dL High 1.5-2.2 [facility] Comment on above: Performed By: #### L 501.5200, L501.5294, L501.2300 ####[facility] [address] [place], [address] Magnesium [Mass/Vol] 2.4 mg/dL High 1.5-2.2 [facility] Comment on above: Performed By: #### L 501.5200, L500.3600 ####[facility] [address] [place], [address] Magnesium [Mass/Vol] 2.5 mg/dL High 1.5-2.2 [facility] Comment on above: Performed By: #### L 501.5200, L500.3600 ####[facility] [address] [place], [address] Magnesium [Mass/Vol] 2.6 mg/dL High 1.5-2.2 [facility] Comment on above: Performed By: #### L 500.2500, L501.5200, L500.3600 ####[facility] [address] [place], [address] Magnesium [Mass/Vol] 3.0 mg/dL High 1.5-2.2 [facility] Comment on above: Performed By: #### L 500.2500, L501.9520, L501.5200 ####[facility] [address] [place], [address] Osmolality, Serumon 10-10-20 25 OSMOLALITY,SER 320 mOsm/KG High 275-295 [facility] Comment on above: Performed By: #### L 501.2300, L505.5000, L501.7300 ####[facility] [address] [place], [address] Phosphoruson 05-05-2025 Phosphate [Mass/Vol] 3.6 mg/dL Normal 2.7-4.5 [facility] Comment on above: Performed By: #### L 501.5200, L501.2300, L501.5294 ####[facility] [address] [place], [address] Phosphate [Mass/Vol] 4.6 mg/dL High 2.7-4.5 [facility] Comment on above: Performed By: #### L 501.5200, L501.5294, L501.2300 ####[facility] [address] [place], [address] Phosphate [Mass/Vol] 5.3 mg/dL High 2.7-4.5 [facility] Comment on above: Performed By: #### L 501.2300 ####[facility] [address] [place], [address] Phosphate [Mass/Vol] 8.2 mg/dL High 2.7-4.5 [facility] Comment on above: Performed By: #### L 501.2300, L505.5000, L501.7300 ####[facility] [address] [place], [address] Procedure Reporton Procedure Report Normal [facility] Renal Profileon 05-05-2025 Albumin [Mass/Vol] 2.6 g/dL Low 3.5-5.0 [facility] Comment on above: Performed By: #### L 501.5200, L500.3600 ####[facility] [address] [place], [address] BUN/CRE 17.1 RATIO Normal 10-20 [facility] Comment on above: Performed By: #### L 501.5200, L500.3600 ####[facility] [address] [place], [address] Calcium [Mass/Vol] 7.2 mg/dL Low 7.6-11.0 [facility] Comment on above: Performed By: #### L 501.5200, L500.3600 ####[facility] [address] [place], [address] Chloride [Moles/Vol] 103 mmol/L Normal 98-108 [facility] Comment on above: Performed By: #### L 501.5200, L500.3600 ####[facility] [address] [place], [address] CO2 [Moles/Vol] 15.7 mmol/L Low 21.0-32.0 [facility] Comment on above: Performed By: #### L 501.5200, L500.3600 ####[facility] [address] [place], [address] Creatinine [Mass/Vol] 3.85 mg/dL High 0.70-1.20 [facility] Comment on above: Performed By: #### L 501.5200, L500.3600 ####[facility] [address] [place], [address] ECRCL 27.27 ml/min Low 50-250 [facility] Comment on above: Performed By: #### L 501.5200, L500.3600 ####[facility] [address] [place], [address] GAP 17 High 5-15 [facility] Comment on above: Performed By: #### L 501.5200, L500.3600 ####[facility] [address] [place], [address] GFR/1.73 sq M.predicted among non-blacks MDRD (S/P/Bld) [Vol rate/Area] 17 mL/min/{1.73_m2} Low >60 [facility] Comment on above: Result Comment: mL/m in/1.73m2 CKD-EPI Creatinine Equation (2020) Performed By: #### L 501.5200, L500.3600 ####[facility] [address] [place], [address] Glucose [Mass/Vol] 192 mg/dL High 70-99 [facility] Comment on above: Performed By: #### L 501.5200, L500.3600 ####[facility] [address] [place], [address] Phosphate [Mass/Vol] 5.4 mg/dL High 2.7-4.5 [facility] Comment on above: Performed By: #### L 501.5200, L500.3600 ####[facility] [address] [place], [address] Potassium [Moles/Vol] 3.2 mmol/L Low 3.3-5.1 [facility] Comment on above: Performed By: #### L 501.5200, L500.3600 ####[facility] [address] [place], [address] Sodium [Moles/Vol] 136 mmol/L Normal 133-145 [facility] Comment on above: Performed By: #### L 501.5200, L500.3600 ####[facility] [address] [place], [address] Urea nitrogen [Mass/Vol] 66 mg/dL High 4-19 [facility] Comment on above: Performed By: #### L 501.5200, L500.3600 ####[facility] [address] [place], [address] Albumin [Mass/Vol] 2.6 g/dL Low 3.5-5.0 [facility] Comment on above: Performed By: #### L 501.5200, L500.3600 ####[facility] [address] [place], [address] Performed By: #### L 500.2500, L501.5200, L500.3600 ####[facility] [address] [place], [address] BUN/CRE 18.5 RATIO Normal 10-20 [facility] Comment on above: Performed By: #### L 501.5200, L500.3600 ####[facility] [address] [place], [address] Calcium [Mass/Vol] 7.2 mg/dL Low 7.6-11.0 [facility] Comment on above: Performed By: #### L 501.5200, L500.3600 ####[facility] [address] [place], [address] Chloride [Moles/Vol] 102 mmol/L Normal 98-108 [facility] Comment on above: Performed By: #### L 501.5200, L500.3600 ####[facility] [address] [place], [address] Performed By: #### L 500.2500, L501.5200, L500.3600 ####[facility] [address] [place], [address] CO2 [Moles/Vol] 10.8 mmol/L Low 21.0-32.0 [facility] Comment on above: Performed By: #### L 501.5200, L500.3600 ####[facility] [address] [place], [address] Creatinine [Mass/Vol] 4.02 mg/dL High 0.70-1.20 [facility] Comment on above: Performed By: #### L 501.5200, L500.3600 ####[facility] [address] [place], [address] GAP 22 High 5-15 [facility] Comment on above: Performed By: #### L 501.5200, L500.3600 ####[facility] [address] [place], [address] GFR/1.73 sq M.predicted among non-blacks MDRD (S/P/Bld) [Vol rate/Area] 16 mL/min/{1.73_m2} Low >60 [facility] Comment on above: Result Comment: mL/m in/1.73m2 CKD-EPI Creatinine Equation (2020) Performed By: #### L 501.5200, L500.3600 ####[facility] [address] [place], [address] Glucose [Mass/Vol] 171 mg/dL High 70-99 [facility] Comment on above: Performed By: #### L 501.5200, L500.3600 ####[facility] [address] [place], [address] Phosphate [Mass/Vol] 6.1 mg/dL High 2.7-4.5 [facility] Comment on above: Performed By: #### L 501.5200, L500.3600 ####[facility] [address] [place], [address] Potassium [Moles/Vol] 3.7 mmol/L Normal 3.3-5.1 [facility] Comment on above: Result Comment: Hemo lysis present, Results??could be affected.?? Performed By: #### L 501.5200, L500.3600 ####[facility] [address] [place], [address] Sodium [Moles/Vol] 135 mmol/L Normal 133-145 [facility] Comment on above: Performed By: #### L 501.5200, L500.3600 ####[facility] [address] [place], [address] Urea nitrogen [Mass/Vol] 74 mg/dL High 4-19 [facility] Comment on above: Performed By: #### L 501.5200, L500.3600 ####[facility] [address] [place], [address] Thyroid Stim Hormone (TSH)on 05-05-2025 TSH 0.368 uIU/mL Normal 0.300-4.200 [facility] Comment on above: Performed By: #### L 500.2500, L501.9520, L501.5200 ####[facility] [address] [place], [address] Urine Drug Screen (VISTA)on 05-05-2025 AMPHETAMINES Negative Normal <1000 ng/mL [facility] Comment on above: Performed By: #### L 501.2300, L505.5000, L501.7300 ####[facility] [address] [place], [address] BARBITIURATES Negative Normal < 200 ng/mL [facility] Comment on above: Performed By: #### L 501.2300, L505.5000, L501.7300 ####[facility] [address] [place], [address] BENZODIAZIPINE Negative Normal < 200 ng/mL [facility] Comment on above: Performed By: #### L 501.2300, L505.5000, L501.7300 ####[facility] [address] [place], [address] BUP Ur Drug Scr Negative Normal < 200 ng/mL [facility] Comment on above: Performed By: #### L 501.2300, L505.5000, L501.7300 ####[facility] [address] [place], [address] COCAINE Negative Normal < 300 ng/mL [facility] Comment on above: Performed By: #### L 501.2300, L505.5000, L501.7300 ####[facility] [address] [place], [address] Fentanyl Negative Normal <5 ng/mL [facility] Comment on above: Result Comment: CONF IRMATORY [...] Performed By: #### L 501.2300, L505.5000, L501.7300 ####[facility] [address] [place], [address] METHADONE Negative Normal < 300 ng/mL [facility] Comment on above: Performed By: #### L 501.2300, L505.5000, L501.7300 ####[facility] [address] [place], [address] OPIATES Negative Normal < 300 ng/mL [facility] Comment on above: Performed By: #### L 501.2300, L505.5000, L501.7300 ####[facility] [address] [place], [address] OXYCODONE Negative Normal < 100 ng/mL [facility] Comment on above: Performed By: #### L 501.2300, L505.5000, L501.7300 ####[facility] [address] [place], [address] PCP Negative Normal < 25 ng/mL [facility] Comment on above: Performed By: #### L 501.2300, L505.5000, L501.7300 ####[facility] [address] [place], [address] THC Negative Normal < 50 ng/mL [facility] Comment on above: Performed By: #### L 501.2300, L505.5000, L501.7300 ####[facility] [address] [place], [address] Abdomen/Pelvis without Conto n 05-04-2025 Abdomen/Pelvis without Cont Normal [facility] Alcohol, Blood (Medical)-Ser umon 05-04-2025 SERUM ETOH < 10.1 Normal <=10.0 [facility] Comment on above: Result Comment: This test is for medical purposes only. The legaldefinition of intoxication varies according to local law. Performed By: #### L 501.9100 ####[facility] [address] [place], [address] Basic Metabolic Profile (BMP )on 05-04-2025 BUN/CRE 17.9 RATIO Normal - [facility] Comment on above: Performed By: #### L 500.2500 ####[facility] [address] [place], [address] Calcium [Mass/Vol] 7.0 mg/dL Low 7.6-11.0 [facility] Comment on above: Performed By: #### L 500.2500 ####[facility] [address] [place], [address] Chloride [Moles/Vol] 100 mmol/L Normal 98-108 [facility] Comment on above: Performed By: #### L 500.2500 ####[facility] [address] [place], [address] CO2 [Moles/Vol] 5.4 mmol/L Invalid Interpretation Code 21.0-32.0 [facility] Comment on above: Result Comment: Crit ical Result(s) Called at: 2217 by: SHELDON DEVRIES TO CHRISTIAN??Results read back by same. Performed By: #### L 500.2500 ####[facility] [address] [place], [address] Creatinine [Mass/Vol] 5.74 mg/dL High 0.70-1.20 [facility] Comment on above: Performed By: #### L 500.2500 ####[facility] [address] [place], [address] ECRCL 18.22 ml/min Low 50-250 [facility] Comment on above: Performed By: #### L 500.2500 ####[facility] [address] [place], [address] GAP 24 High 5-15 [facility] Comment on above: Performed By: #### L 500.2500 ####[facility] [address] [place], [address] GFR/1.73 sq M.predicted among non-blacks MDRD (S/P/Bld) [Vol rate/Area] 11 mL/min/{1.73_m2} Low >60 [facility] Comment on above: Result Comment: mL/m in/1.73m2 CKD-EPI Creatinine Equation (2020) Performed By: #### L 500.2500 ####[facility] [address] [place], [address] Glucose [Mass/Vol] 355 mg/dL High 70-99 [facility] Comment on above: Performed By: #### L 500.2500 ####[facility] [address] [place], [address] Potassium [Moles/Vol] 5.1 mmol/L Normal 3.3-5.1 [facility] Comment on above: Performed By: #### L 500.2500 ####[facility] [address] [place], [address] Sodium [Moles/Vol] 129 mmol/L Low 133-145 [facility] Comment on above: Performed By: #### L 500.2500 ####[facility] [address] [place], [address] Urea nitrogen [Mass/Vol] 103 mg/dL Invalid Interpretation Code 4-19 [facility] Comment on above: Result Comment: Crit ical Result(s) Called at: by:??[facility] Result(s) Called at: 2217 by: [facility]??Results read back by same. Performed By: #### L 500.2500 ####[facility] [address] [place], [address] BUN/CRE 17.9 RATIO Normal 10-20 [facility] Comment on above: Performed By: #### L 500.2500 ####[facility] [address] [place], [address] Calcium [Mass/Vol] 7.2 mg/dL Low 7.6-11.0 [facility] Comment on above: Performed By: #### L 500.2500 ####[facility] [address] [place], [address] Chloride [Moles/Vol] 101 mmol/L Normal 98-108 [facility] Comment on above: Performed By: #### L 500.2500 ####[facility] [address] [place], [address] CO2 [Moles/Vol] 4.4 mmol/L Invalid Interpretation Code 21.0-32.0 [facility] Comment on above: Result Comment: Crit ical Result(s) Called at: 1806 by:??SHELDON ESCOBEDO Results read back by same. Performed By: #### L 500.2500 ####[facility] [address] [place], [address] Creatinine [Mass/Vol] 5.46 mg/dL High 0.70-1.20 [facility] Comment on above: Performed By: #### L 500.2500 ####[facility] [address] [place], [address] ECRCL 19.06 ml/min Low 50-250 [facility] Comment on above: Performed By: #### L 500.2500 ####[facility] [address] [place], [address] GAP 27 High 5-15 [facility] Comment on above: Performed By: #### L 500.2500 ####[facility] [address] [place], [address] GFR/1.73 sq M.predicted among non-blacks MDRD (S/P/Bld) [Vol rate/Area] 11 mL/min/{1.73_m2} Low >60 [facility] Comment on above: Result Comment: mL/m in/1.73m2 CKD-EPI Creatinine Equation (2020) Performed By: #### L 500.2500 ####[facility] [address] [place], [address] Glucose [Mass/Vol] 227 mg/dL High 70-99 [facility] Comment on above: Performed By: #### L 500.2500 ####[facility] [address] [place], [address] Potassium [Moles/Vol] 4.8 mmol/L Normal 3.3-5.1 [facility] Comment on above: Performed By: #### L 500.2500 ####[facility] [address] [place], [address] Sodium [Moles/Vol] 133 mmol/L Normal 133-145 [facility] Comment on above: Performed By: #### L 500.2500 ####[facility] [address] [place], [address] Urea nitrogen [Mass/Vol] 98 mg/dL High 4-19 [facility] Comment on above: Performed By: #### L 500.2500 ####[facility] [address] [place], [address] CO2 [Moles/Vol] 2.9 mmol/L Invalid Interpretation Code 21.0-32.0 [facility] Comment on above: Result Comment: Crit ical Result(s) Called at: 1417 05/04/2025 by:MISAEL??Results read back by same.Critical Result(s) Called at: 1417 05/04/2025 by:MISAEL??Results read back by same.Critical Result(s) Called at: by:??Results read back bysame. AMENDED REPORT 05/04/25 1435 CO2 previously reported as: 2.9 *L mmol/LCritical Result(s) Called at: 1417 05/04/2025 by:MISAEL??Results read back by same. Performed By: #### L 100.0100, L500.2500 ####[facility] [address] [place], [address] GAP 29 High 5-15 [facility] Comment on above: Result Comment: AMENDED REPORT 05/04/25 1435 GAP previously reported as: 29 H Performed By: #### L 100.0100, L500.2500 ####[facility] [address] [place], [address] Bedside Glucoseon 05-04-2025 FINGERSTICK GLU 261 mg/dL High 74-106 [facility] Comment on above: Result Comment: KIANA GEMENT OF PATIENT CARE PER NURSING PROTOCOL Performed By: #### L 501.080 ####[facility] [address] [place], [address] FINGERSTICK GLU 253 mg/dL High 74-106 [facility] Comment on above: Result Comment: KIANA GEMENT OF PATIENT CARE PER NURSING PROTOCOL Performed By: #### L 501.080 ####[facility] [address] [place], [address] FINGERSTICK GLU 111 mg/dL High 74-106 [facility] Comment on above: Result Comment: KIANA GEMENT OF PATIENT CARE PER NURSING PROTOCOL Performed By: #### L 501.080 ####[facility] [address] [place], [address] Beta-Hydroxbytyrateon 2024 BETA-HYDROXYBUT 2.9 mmol/L High 0.0-0.3 [facility] Comment on above: Performed By: #### L 501.5500, L502.0300, L509.7001, L501.9985, L501.6901 ####[facility] [address] [place], [address] Blood Gases by CPSon 025 Base excess Calc (Bld) [Moles/Vol] -27 mmol/L Low -2 to +2 [facility] Comment on above: Performed By: #### L 9000.0800 ####[facility] [address] [place], [address] Blood Gas Type ART Normal [facility] Comment on above: Performed By: #### L 9000.0800 ####[facility] [address] [place], [address] CO2 [Moles/Vol] 7 mmol/L Normal [facility] Comment on above: Performed By: #### L 9000.0800 ####[facility] [address] [place], [address] FI02 30.0 Normal [facility] Comment on above: Performed By: #### L 9000.0800 ####[facility] [address] [place], [address] HCO3 (Bld) [Moles/Vol] 6.2 mmol/L Low 22-26 [facility] Comment on above: Performed By: #### L 9000.0800 ####[facility] [address] [place], [address] Mode AC Normal [facility] Comment on above: Performed By: #### L 9000.0800 ####[facility] [address] [place], [address] O2 Delivery Dev Adult Vent Normal [facility] Comment on above: Performed By: #### L 9000.0800 ####[facility] [address] [place], [address] pCO2 32.5 mmHg Low 35-45 [facility] Comment on above: Performed By: #### L 9000.0800 ####[facility] [address] [place], [address] PEEP 5 Normal [facility] [facility] Comment on above: Performed By: #### L 9000.0800 ####[facility] [address] [place], [address] pH (Bld) 6.89 [pH] Invalid Interpretation Code 7.35-7.45 [facility] Comment on above: Performed By: #### L 9000.0800 ####[facility] [address] [place], [address] PO2 86 mmHG Normal 75-100 [facility] Comment on above: Performed By: #### L 9000.0800 ####[facility] [address] [place], [address] Read Back By Yes [facility] Comment on above: Performed By: #### L 9000.0800 ####[facility] [address] [place], [address] Results To mosteller [facility] Comment on above: Performed By: #### L 8999.0800 ####[facility] [address] [place], [address] RR 24 Normal [facility] Comment on above: Performed By: #### L 8999.0800 ####[facility] [address] [place], [address] SITE R Brach Normal [facility] Comment on above: Performed By: #### L 8999.0800 ####[facility] [address] [place], [address] SO2 86 Low 95-99 [facility] Comment on above: Performed By: #### L 8999.0800 ####[facility] [address] [place], [address] Time Given 18:08:41 [facility] Comment on above: Performed By: #### L 8999.0800 ####[facility] [address] [place], [address] Vt 450.0 mL Normal [facility] Comment on above: Performed By: #### L 8999.0800 ####[facility] [address] [place], [address] BRADLY TEST Positive Normal [facility] Comment on above: Performed By: #### L 8999.0800 ####[facility] [address] [place], [address] BE < -30 Low -2 to +2 [facility] Comment on above: Performed By: #### L 8999.0800 ####[facility] [address] [place], [address] Blood Gas Type ART Normal [facility] Comment on above: Performed By: #### L 8999.0800 ####[facility] [address] [place], [address] CO2 [Moles/Vol] 5 mmol/L Normal [facility] Comment on above: Performed By: #### L 9000.0800 ####[facility] [address] [place], [address] FI02 35.0 Normal [facility] Comment on above: Performed By: #### L 9000.0800 ####[facility] [address] [place], [address] HCO3 (Bld) [Moles/Vol] 4.2 mmol/L Low 22-26 [facility] Comment on above: Performed By: #### L 9000.0800 ####[facility] [address] [place], [address] Mode AC Normal [facility] Comment on above: Performed By: #### L 9000.0800 ####[facility] [address] [place], [address] O2 Delivery Dev Adult Vent Normal [facility] Comment on above: Performed By: #### L 9000.0800 ####[facility] [address] [place], [address] pCO2 26.9 mmHg Low 35-45 [facility] Comment on above: Performed By: #### L 9000.0800 ####[facility] [address] [place], [address] PEEP 5 Normal [facility] Comment on above: Performed By: #### L 9000.0800 ####[facility] [address] [place], [address] pH (Bld) 6.80 [pH] Invalid Interpretation Code 7.35-7.45 [facility] Comment on above: Performed By: #### L 9000.0800 ####[facility] [address] [place], [address] PO2 105 mmHG High 75-100 [facility] Comment on above: Performed By: #### L 9000.0800 ####[facility] [address] [place], [address] Read Back By Yes [facility] Comment on above: Performed By: #### L 9000.0800 ####[facility] [address] [place], [address] Results To mostetler [facility] Comment on above: Performed By: #### L 9000.0800 ####[facility] [address] [place], [address] RR 12 Normal [facility] Comment on above: Performed By: #### L 9000.0800 ####[facility] [address] [place], [address] SITE R Brach [facility] Comment on above: Performed By: #### L 9000.0800 ####[facility] [address] [place], [address] SO2 89 Low 95-99 [facility] Comment on above: Performed By: #### L 9000.0800 ####[facility] [address] [place], [address] Time Given 15:47:52 [facility] Comment on above: Performed By: #### L 9000.0800 ####[facility] [address] [place], [address] Vt 450.0 mL [facility] Comment on above: Performed By: #### L 9000.0800 ####[facility] [address] [place], [address] BE < -30 Low -2 to +2 [facility] Comment on above: Performed By: #### L 9000.0800 ####[place] [facility] [address] [place], [address] Blood Gas Type ART Normal [facility] Comment on above: Performed By: #### L 8999.0800 ####[facility] [address] [place], [address] FI02 3.0 [facility] Comment on above: Performed By: #### L 8999.0800 ####[facility] [address] [place], [address] HCO3 (Bld) [Moles/Vol] 1.5 mmol/L Low 22-26 [facility] Comment on above: Performed By: #### L 8999.0800 ####[facility] [address] [place], [address] Mode Not entered Normal [facility] Comment on above: Performed By: #### L 0.0800 ####[facility] [address] [place], [address] O2 Delivery Dev Cannula Normal [facility] Comment on above: Performed By: #### L 8999.0800 ####[facility] [address] [place], [address] pCO2 7.2 mmHg Invalid Interpretation Code 35-45 [facility] Comment on above: Performed By: #### L 8999.0800 ####[facility] [address] [place], [address] pH (Bld) 6.93 [pH] Invalid Interpretation Code 7.35-7.45 [facility] Comment on above: Performed By: #### L 8999.0800 ####[facility] [address] [place], [address] PO2 148 mmHG High 75-100 [facility] Comment on above: Performed By: #### L 0.0800 ####[facility] [address] [place], [address] Read Back By Yes Normal [facility] Comment on above: Performed By: #### L 9000.0800 ####[facility] [address] [place], [address] Results To jw Normal [facility] Comment on above: Performed By: #### L 9000.0800 ####[facility] [address] [place], [address] SITE R Brach Normal [facility] Comment on above: Performed By: #### L 9000.0800 ####[facility] [address] [place], [address] SO2 97 Normal 95-99 [facility] Comment on above: Performed By: #### L 9000.0800 ####[facility] [address] [place], [address] Time Given 13:13:02 Normal [facility] Comment on above: Performed By: #### L 9000.0800 ####[facility] [address] [place], [address] TOTAL CO2 < 5 Normal [facility] Comment on above: Performed By: #### L 9000.0800 ####[facility] [address] [place], [address] CBC W/Diff, Automatedon 10-0 PATH REV May foll Normal [facility] Comment on above: Performed By: #### L 100.0100, L500.2500 ####[facility] [address] [place], [address] PLT EST ADEQUATE Normal ADEQ [facility] Comment on above: Performed By: #### L 100.0100, L500.2500 ####[facility] [address] [place], [address] SMEAR COMMENT SCANNED Normal [facility] Comment on above: Performed By: #### L 100.0100, L500.2500 ####[facility] [address] [place], [address] CPK Total, Creatine Kinaseon 05-04-2025 CPK TOTAL 76 U/L Normal 24-195 [facility] Comment on above: Order Comment: Comme nts: DC when propofol is d/c'd Performed By: #### L 501.5000, L501.3620 ####[facility] [address] [place], [address] Chest 1 Viewon 05-04-2025 Chest 1 View Normal [facility] Chest 1 View (Portable)on Chest 1 View (Portable) Normal [facility] Chest 1 View (Portable) Normal [facility] Chest 1 View (Portable) Normal [facility] Chest 1 View (Portable) Normal [facility] Consultation - Intensiviston 05-04-2025 Consultation - Sizing Sponger Normal [facility] Creatinine, Urineon 05-04-20 25 URINE CREAT 56.00 mg/dL Normal 39.00-259.0 0 [facility] Comment on above: Performed By: #### L 501.5500, L502.0300, L509.7001, L501.9985, L501.6901 ####[facility] [address] [place], [address] Emergency Department Summary on 05-04-2025 Emergency Department Summary Normal [facility] H AND P Exam - Hospitaliston 05-04-2025 H&P Exam - Hospitalist Normal [facility] Hemoglobin A1con 05-04-2025 HbA1c (Bld) [Mass fraction] 6.6 % High <=5.6 [facility] Comment on above: Result Comment: Norm al < 5.7 % Prediabetic 5.7 - 6.4 % Diabetic >or= 6.5 % Please note range changes. Performed By: #### L 501.5500, L502.0300, L509.7001, L501.9985, L501.6901 ####[facility] [address] [place], [address] L501.4021on 05-04-2025 Trop T High Sen 24 ng/L High <=22 [facility] Comment on above: Performed By: #### L 501.4021 ####[facility] [address] [place], [address] L509.7001on 05-04-2025 Procalcitonin 26.50 ng/mL High <=0.10 [facility] Comment on above: Result Comment: Inte rpretation:<0.10-0.25 [...] #### L 501.5500, L502.0300, L509.7001, L501.9985, L501.6901 ####[facility] [address] [place], [address] Lactic Acidon 05-04-2025 Lactate [Moles/Vol] 1.1 mmol/L Normal 0.0-2.0 [facility] Comment on above: Performed By: #### L 503.6005 ####[facility] [address] [place], [address] Lactate [Moles/Vol] 2.2 mmol/L Invalid Interpretation Code 0.0-2.0 [facility] Comment on above: Order Comment: Y Result Comment: Crit ical Result(s) Called at: 1453 by: SHELDON YOUSSEF??Results read back by same. Performed By: #### L 503.6005 ####[facility] [address] [place], [address] Legionella Antigen Urineon 1 LEGU Normal [facility] Comment on above: Performed By: #### M 300.4600, M300.4500 ####[facility] [address] [place], [address] M100.678on 05-04-2025 M100.678 Pending SARS-CoV-2 (COVID 19) Negative INFLUENZA A Negative INFLUENZA B Negative RSV PCR Negative Normal [facility] Comment on above: Performed By: #### M 100.678 ####[facility] [address] [place], [address] M8200.1000on 05-04-2025 M8200.1000 Negative Normal [facility] Comment on above: Performed By: #### M 8200.1000 ####[facility] [address] [place], [address] Partial Thromboplast Timeon 05-04-2025 aPTT Coag (Bld) [Time] 32.4 s Normal 24.1-36.2 [facility] Comment on above: Performed By: #### L 300.4310, L300.3900 ####[facility] [address] [place], [address] Procedure Reporton Procedure Report Normal [facility] Prothrombin Time w/INRon INR Coag (PPP) [Relative time] 1.9 {INR} Normal [facility] Comment on above: Performed By: #### L 300.4310, L300.3900 ####[facility] [address] [place], [address] PT Coag (PPP) [Time] 21.7 s High 11.7-14.9 [facility] Comment on above: Performed By: #### L 300.4310, L300.3900 ####[facility] [address] [place], [address] RESPIRATORY PANEL MOLECULARo n 05-04-2025 RP PANEL Normal [facility] Comment on above: Performed By: #### M 100.638 ####[facility] [address] [place], [address] Strep pneumoniae Antig(UR,CS F)on 05-04-2025 STPAG Normal [facility] Comment on above: Performed By: #### M 300.4600, M300.4500 ####[facility] [address] [place], [address] Triglycerideson 05-04-2025 Triglyceride [Mass/Vol] 258 mg/dL High [facility] Comment on above: Order Comment: Comme nts: DC when propofol is d/c'dDC when propofol is d/c'd Result Comment: The drugs N-Acetylcysteine and Metamizole may falselydepress this assay.Normal range: <150 mg/dLBorderline High: 150-199 mg/dLHigh: 200-499 mg/dLVery High: >500 mg/dL Performed By: #### L 501.5000, L501.3620 ####[facility] [address] [place], [address] Troponin T HS 2 HRon 025 Trop T High Sen 23 ng/L High <=22 [facility] Comment on above: Performed By: #### L 499.0042 ####[facility] [address] [place], [address] Trop T High Sen Normal <=22 [facility] Comment on above: Result Comment: [place], COMPLETED @1173 Performed By: #### L 499.0042 ####[facility] [address] [place], [address] Troponin T HS 4 HRon 025 Trop T High Sen 26 ng/L High <=22 [facility] Comment on above: Performed By: #### L 499.0043 ####[facility] [address] [place], [address] Urinalysis, Completeon 05-04 BACTERIA 1+ /hpf Normal None Seen [facility] Comment on above: Order Comment: COLLE CTOR TO SPECIFY Performed By: #### L 400.0001 ####[facility] [address] [place], [address] RBC 25-50 SEEN Normal 0-5 [facility] Comment on above: Order Comment: COLLE CTOR TO SPECIFY Performed By: #### L 400.0001 ####[facility] [address] [place], [address] WBC 25-50 SEEN Normal 0-5 [facility] Comment on above: Order Comment: COLLE CTOR TO SPECIFY Performed By: #### L 400.0001 ####[facility] [address] [place], [address] EPI,SQUAMOUS 0 SEEN Normal 0-[address] [place] [address] Comment on above: Order Comment: COLLE CTOR TO SPECIFY Performed By: #### L 400.0001 ####[facility] [address] [place], [address] Mucus Ql (Urine sed) 0 SEEN Normal [facility] Comment on above: Order Comment: COLLE CTOR TO SPECIFY Performed By: #### L 400.0001 ####[facility] [address] [place], [address] Urine Sodiumon 05-04-2025 Sodium (U) [Moles/Vol] 78 mmol/L Normal Not Establ. [facility] Comment on above: Performed By: #### L 501.5500, L502.0300, L509.7001, L501.9985, L501.6901 ####[facility] [address] [place], [address] Elbow min 3 Viewson 01-23- 25 Elbow min 3 Views Normal [facility] Absolute lymphocyte countOrd ered By: Monroe Lorna on 12-06-2024 Lymphocytes Auto (Unsp spec) [#/Vol] 1.64 10*3/uL 0.83-4.51 [facility] Absolute neutrophil countOrd ered By: Monroe Rothman on 12-06-2024 Neutrophils (Bld) [#/Vol] 3.5 10*3/uL 2.0-7.7 [facility] Anion gap in Serum or Plasma Ordered By: Monroe Rothman on 12-06-2024 Anion gap [Moles/Vol] 11 mmol/L 5- [facility] Automated lymphocyte count a s percentage of total leukocytesOrdered By: Monroe Rothman on 12-06-2024 Lymphocytes/100 WBC Auto (Unsp spec) 28.2 % 19- [facility] BUN/creatinine ratioOrdered By: Monroe Rothman on 12-06-2024 Urea nitrogen/Creatinine [Mass ratio] 15.0 mg/mg 10- [facility] Basophil percentageOrdered B y: Monroe Rothman on 12-06-2024 Basophils/100 WBC (Bld) 0.7 % 0-1 [facility] Bilirubin, totalOrdered By: Monroe Rothman on 12-06-2024 Bilirubin [Mass/Vol] mg/dL 0.00-1.30 [facility] CBC W/Diff, Automatedon 11-24 Absolute Lymph 1.64 X10 3/uL Normal 0.83-4.51 [facility] Comment on above: Order Comment: Order Date: 12/06/24Order Info: 0184-1 - CBCD Performed By: #### L 501.9520, L501.9985, L500.4100, L100.0100, L501.9910, L500.4050 ####[facility] [address] [place], [place], [address] Absolute Neut 3.5 X10 3/uL Normal 2.0-7.7 [facility] Comment on above: Order Comment: Order Date: 12/06/24Order Info: 0184-1 - CBCD Performed By: #### L 501.9520, L501.9985, L500.4100, L100.0100, L501.9910, L500.4050 ####[facility] [address] [place], [address] Basophils/100 WBC (Bld) 0.7 % Normal 0-1 [facility] Comment on above: Order Comment: Order Date: 12/06/24Order Info: 0184-1 - CBCD Performed By: #### L 501.9520, L501.9985, L500.4100, L100.0100, L501.9910, L500.4050 ####[facility] [address] [place], [address] Eosinophils/100 WBC (Bld) 2.4 % Normal 0-5 [facility] Comment on above: Order Comment: Order Date: 12/06/24Order Info: 0184-1 - CBCD Performed By: #### L 501.9520, L501.9985, L500.4100, L100.0100, L501.9910, L500.4050 ####[facility] [address] [facility] [place], [address] Erythrocyte distribution width (RBC) [Ratio] 13.7 % Normal 11.6-14.6 [facility] Comment on above: Order Comment: Order Date: 12/06/24Order Info: 0184-1 - CBCD Performed By: #### L 501.9520, L501.9985, L500.4100, L100.0100, L501.9910, L500.4050 ####[facility] [address] [place], [address] Hematocrit (Bld) [Volume fraction] 35.5 % Low 40-54 [facility] Comment on above: Order Comment: Order Date: 12/06/24Order Info: 0184-1 - CBCD Performed By: #### L 501.9520, L501.9985, L500.4100, L100.0100, L501.9910, L500.4050 ####[facility] [address] [place], [address] Hemoglobin (Bld) [Mass/Vol] 12.2 g/dL Low 13.0-16.5 [facility] Comment on above: Order Comment: Order Date: 12/06/24Order Info: 0184-1 - CBCD Performed By: #### L 501.9520, L501.9985, L500.4100, L100.0100, L501.9910, L500.4050 ####[facility] [address] [place], [address] IG% 0.300 Normal 0.0-0.9 [facility] Comment on above: Order Comment: Order Date: 12/06/24Order Info: 0184-1 - CBCD Result Comment: IG% - Immature Granulocytes (promyelocytes, myelocytes andmetamyelocytes) > 1% indicates that a LEFT SHIFT is Present. Performed By: #### L 501.9520, L501.9985, L500.4100, L100.0100, L501.9910, L500.4050 ####[facility] [address] [place], [address] Lymphocytes/100 WBC (Bld) 28.2 % Normal 19-41 [facility] Comment on above: Order Comment: Order Date: 12/06/24Order Info: 0184-1 - CBCD Performed By: #### L 501.9520, L501.9985, L500.4100, L100.0100, L501.9910, L500.4050 ####[facility] [address] [place], [address] MCH (RBC) [Entitic mass] 30.0 pg Normal 27.0-32.0 [facility] Comment on above: Order Comment: Order Date: 12/06/24Order Info: 0184-1 - CBCD Performed By: #### L 501.9520, L501.9985, L500.4100, L100.0100, L501.9910, L500.4050 ####[facility] [address] [place], [address] MCHC (RBC) [Mass/Vol] 34.4 g/dL Normal 32-36 [facility] Comment on above: Order Comment: Order Date: 12/06/24Order Info: 0184-1 - CBCD Performed By: #### L 501.9520, L501.9985, L500.4100, L100.0100, L501.9910, L500.4050 ####[facility] [address] [place], [address] MCV (RBC) [Entitic vol] 87.2 fL Normal 80-94 [facility] Comment on above: Order Comment: Order Date: 12/06/24Order Info: 0184-1 - CBCD Performed By: #### L 501.9520, L501.9985, L500.4100, L100.0100, L501.9910, L500.4050 ####[facility] [address] [place], [address] Monocytes/100 WBC (Bld) 8.1 % Normal 0-10 [facility] Comment on above: Order Comment: Order Date: 12/06/24Order Info: 0184-1 - CBCD Performed By: #### L 501.9520, L501.9985, L500.4100, L100.0100, L501.9910, L500.4050 ####[facility] [address] [place], [address] Neutrophils/100 WBC (Bld) 60.3 % Normal 47-70 [facility] Comment on above: Order Comment: Order Date: 12/06/24Order Info: 0184-1 - CBCD Performed By: #### L 501.9520, L501.9985, L500.4100, L100.0100, L501.9910, L500.4050 ####[facility] [address] [place], [address] Nucleated RBC (Bld) [#/Vol] 0 10*3/uL Normal 0-5 [facility] Comment on above: Order Comment: Order Date: 12/06/24Order Info: 0184-1 - CBCD Performed By: #### L 501.9520, L501.9985, L500.4100, L100.0100, L501.9910, L500.4050 ####[facility] [address] [place], [address] Platelet mean volume (Bld) [Entitic vol] 10.0 fL Normal 6.2-12.0 [facility] Comment on above: Order Comment: Order Date: 12/06/24Order Info: 0184-1 - CBCD Performed By: #### L 501.9520, L501.9985, L500.4100, L100.0100, L501.9910, L500.4050 ####[facility] [address] [place], [address] Platelets (Bld) [#/Vol] 221 10*3/uL Normal 150-450 [facility] Comment on above: Order Comment: Order Date: 12/06/24Order Info: 0184-1 - CBCD Performed By: #### L 501.9520, L501.9985, L500.4100, L100.0100, L501.9910, L500.4050 ####[facility] [address] [place], [address] RBC (Bld) [#/Vol] 4.07 10*6/uL Low 4.6-6.2 [facility] Comment on above: Order Comment: Order Date: 12/06/24Order Info: 0184-1 - CBCD Performed By: #### L 501.9520, L501.9985, L500.4100, L100.0100, L501.9910, L500.4050 ####[facility] [address] [place], [address] RDW SD 43.5 fl Normal 35.1-43.9 [facility] Comment on above: Order Comment: Order Date: 12/06/24Order Info: 0184-1 - CBCD Performed By: #### L 501.9520, L501.9985, L500.4100, L100.0100, L501.9910, L500.4050 ####[facility] [address] [place], [address] WBC (Bld) [#/Vol] 5.8 10*3/uL Normal 4.4-11.0 [facility] Comment on above: Order Comment: Order Date: 12/06/24Order Info: 0184-1 - CBCD Performed By: #### L 501.9520, L501.9985, L500.4100, L100.0100, L501.9910, L500.4050 ####[facility] [address] [facility] [place], [place], [address] Calculated very low density lipoprotein (VLDL) cholesterol measurementOrdered By: Monroe Rothman on 12-06-2024 Calculated very low density lipoprotein (VLDL) cholesterol measurement 44 mg/dL High 5-40 [facility] Carbon dioxide, total [Moles /volume] in Central venous bloodOrdered By: Monroe Rothman on 12-06-2024 CO2 [Moles/Vol] 17.6 mmol/L Low 21.0-32.0 [facility] Chloride assayOrdered By: Daniel Rothman on 12-06-2024 Chloride [Moles/Vol] 112 mmol/L High 98-108 [facility] Comprehensive Metabolic Prof ilon 12-06-2024 Albumin [Mass/Vol] 4.1 g/dL Normal 3.5-5.0 [facility] Comment on above: Order Comment: Order Date: 12/06/24Order Info: [id number] - CMPOrder Info: - LIPIDOrder Info: [id number] - TSHOrder Info: [id number] - PSA Performed By: #### L 501.9520, L501.9985, L500.4100, L100.0100, L501.9910, L500.4050 ####[facility] [address] [place], [address] Albumin/Globulin [Mass ratio] 1.6 {ratio} Normal 0.9-2.4 [facility] Comment on above: Order Comment: Order Date: 12/06/24Order Info: [id number] - CMPOrder Info: - LIPIDOrder Info: [id number] - TSHOrder Info: [id number] - PSA Performed By: #### L 501.9520, L501.9985, L500.4100, L100.0100, L501.9910, L500.4050 ####[facility] [address] [place], [address] ALK PHOS 95 U/L Normal 40-129 [facility] Comment on above: Order Comment: Order Date: 12/06/24Order Info: [id number] - CMPOrder Info: - LIPIDOrder Info: [id number] - TSHOrder Info: [id number] - PSA Performed By: #### L 501.9520, L501.9985, L500.4100, L100.0100, L501.9910, L500.4050 ####[facility] [address] [place], [address] ALT [Catalytic activity/Vol] 14 U/L Normal <=46 [facility] Comment on above: Order Comment: Order Date: 12/06/24Order Info: [id number] - CMPOrder Info: - LIPIDOrder Info: [id number] - TSHOrder Info: [id number] - PSA Performed By: #### L 501.9520, L501.9985, L500.4100, L100.0100, L501.9910, L500.4050 ####[facility] [address] [place], [address] AST [Catalytic activity/Vol] 17 U/L Normal <=37 [facility] Comment on above: Order Comment: Order Date: 12/06/24Order Info: [id number] - CMPOrder Info: [id number] - LIPIDOrder Info: [id number] - TSHOrder Info: [id number] - PSA Performed By: #### L 501.9520, L501.9985, L500.4100, L100.0100, L501.9910, L500.4050 ####[facility] [address] [place], [address] BUN/CRE 15.0 RATIO Normal 10-20 [facility] Comment on above: Order Comment: Order Date: 12/06/24Order Info: [id number]- - CMPOrder Info: [id number] - LIPIDOrder Info: 3 - TSHOrder Info: [id number] - PSA Performed By: #### L 501.9520, L501.9985, L500.4100, L100.0100, L501.9910, L500.4050 ####[facility] [address] [place], [address] Calcium [Mass/Vol] 8.7 mg/dL Normal 7.6-11.0 [facility] Comment on above: Order Comment: Order Date: 12/06/24Order Info: 07- - CMPOrder Info: [id number] - LIPIDOrder Info: [id number] - TSHOrder Info: [id number] - PSA Performed By: #### L 501.9520, L501.9985, L500.4100, L100.0100, L501.9910, L500.4050 ####[facility] [address] [place], [address] Chloride [Moles/Vol] 112 mmol/L High 98-108 [facility] Comment on above: Order Comment: Order Date: 12/06/24Order Info: [id number] - CMPOrder Info: [id number] - LIPIDOrder Info: 3 - TSHOrder Info: [id number] - PSA Performed By: #### L 501.9520, L501.9985, L500.4100, L100.0100, L501.9910, L500.4050 ####[facility] [address] [place], [address] CO2 [Moles/Vol] 17.6 mmol/L Low 21.0-32.0 [facility] Comment on above: Order Comment: Order Date: 12/06/24Order Info: [id number] - CMPOrder Info: [id number] - LIPIDOrder Info: [id number] - TSHOrder Info: [id number]- - PSA Performed By: #### L 501.9520, L501.9985, L500.4100, L100.0100, L501.9910, L500.4050 ####[facility] [address] [place], [place], [address] Creatinine [Mass/Vol] 1.76 mg/dL High 0.70-1.20 [facility] Comment on above: Order Comment: Order Date: 12/06/24Order Info: [id number]- - CMPOrder Info: [id number] - LIPIDOrder Info: 3 - TSHOrder Info: [id number] - PSA Performed By: #### L 501.9520, L501.9985, L500.4100, L100.0100, L501.9910, L500.4050 ####[facility] [address] [place], [address] GAP 11 Normal 5-15 [facility] Comment on above: Order Comment: Order Date: 12/06/24Order Info: [id number] - CMPOrder Info: [id number] - LIPIDOrder Info: 3 - TSHOrder Info: [id number] - PSA Performed By: #### L 501.9520, L501.9985, L500.4100, L100.0100, L501.9910, L500.4050 ####[facility] [address] [place], [place], [address] GFR/1.73 sq M.predicted among non-blacks MDRD (S/P/Bld) [Vol rate/Area] 45 mL/min/{1.73_m2} Low >60 [facility] Comment on above: Order Comment: Order Date: 12/06/24Order Info: 86- - CMPOrder Info: [id number] - LIPIDOrder Info: 3 - TSHOrder Info: [id number] - PSA Result Comment: mL/m in/1.73m2 CKD-EPI Creatinine Equation (2020) Performed By: #### L 501.9520, L501.9985, L500.4100, L100.0100, L501.9910, L500.4050 ####[facility] [address] [place], [place], [id number] Globulin (S) [Mass/Vol] 2.6 g/dL Normal 2.2-4.2 [facility] Comment on above: Order Comment: Order Date: 12/06/24Order Info: [id number] - CMPOrder Info: - LIPIDOrder Info: [id number] - TSHOrder Info: [id number] - PSA Performed By: #### L 501.9520, L501.9985, L500.4100, L100.0100, L501.9910, L500.4050 ####[facility] [address] [place], [address] Glucose [Mass/Vol] 94 mg/dL Normal 70-99 [facility] Comment on above: Order Comment: Order Date: 12/06/24Order Info: [id number]- - CMPOrder Info: [id number] - LIPIDOrder Info: [id number] - TSHOrder Info: [id number] - PSA Performed By: #### L 501.9520, L501.9985, L500.4100, L100.0100, L501.9910, L500.4050 ####[facility] [address] [place], [address] Potassium [Moles/Vol] 3.7 mmol/L Normal 3.3-5.1 [facility] Comment on above: Order Comment: Order Date: 12/06/24Order Info: [id number] - CMPOrder Info: [id number] - LIPIDOrder Info: [id number] - TSHOrder Info: [id number] - PSA Performed By: #### L 501.9520, L501.9985, L500.4100, L100.0100, L501.9910, L500.4050 ####[facility] [address] [place], [address] Sodium [Moles/Vol] 141 mmol/L Normal 133-145 [facility] Comment on above: Order Comment: Order Date: 12/06/24Order Info: [id number]- - CMPOrder Info: [id number] - LIPIDOrder Info: [id number] - TSHOrder Info: [id number] - PSA Performed By: #### L 501.9520, L501.9985, L500.4100, L100.0100, L501.9910, L500.4050 ####[facility] [address] [place], [address] T BILI < 0.15 Normal 0.00-1.30 [facility] Comment on above: Order Comment: Order Date: 12/06/24Order Info: [id number] - CMPOrder Info: [id number] - LIPIDOrder Info: [id number] - TSHOrder Info: [id number] - PSA Performed By: #### L 501.9520, L501.9985, L500.4100, L100.0100, L501.9910, L500.4050 ####[facility] [address] [place], [address] T PROT 6.6 g/dL Normal 5.9-8.4 [facility] Comment on above: Order Comment: Order Date: 05/13/25Order Info: [id number] - CMPOrder Info: [id number] - LIPIDOrder Info: [id number] - TSHOrder Info: [id number] - PSA Performed By: #### L 501.9520, L501.9985, L500.4100, L100.0100, L501.9910, L500.4050 ####[facility] [address] [place], [place], [address] Urea nitrogen [Mass/Vol] 26 mg/dL High 4-19 [facility] Comment on above: Order Comment: Order Date: 12/06/24Order Info: [id number] - CMPOrder Info: [id number] - LIPIDOrder Info: [id number] - TSHOrder Info: [id number] - PSA Performed By: #### L 501.9520, L501.9985, L500.4100, L100.0100, L501.9910, L500.4050 ####[facility] [address] [place], [place], [address] Eosinophil percentageOrdered By: Monroe Rothman on 12-06-2024 Eosinophils/100 WBC (Bld) 2.4 % 0-5 [facility] Erythrocyte distribution wid th ratioOrdered By: Monroe Rothman on 12-06-2024 Erythrocyte distribution width (RBC) [Ratio] 13.7 % 11.6-14.6 [facility] Erythrocyte distribution wid th standard deviationOrdered By: Monroe Rothman on 12-06-2024 Erythrocyte distribution width (RBC) [Ratio] 43.5 fl 35.1-43.9 [facility] Glomerular filtration rate ( GFR) estimation/1.73 sq m using serum, plasma, or whole bOrdered By: Monroe Rothman on 12-06-2024 GFR/1.73 sq M.predicted among non-blacks MDRD (S/P/Bld) [Vol rate/Area] 45 mL/min/{1.73_m2} Low >60 [facility] Comment on above: mL/min/1.73m2 CKD-EP I Creatinine Equation (2020) Hematocrit Auto (Bld) [Volum e fraction]Ordered By: Monroe Rothman on 12-06-2024 Hematocrit (Bld) [Volume fraction] 35.5 % Low 40-54 [facility] Hemoglobin A1con 12-06-2024 HbA1c (Bld) [Mass fraction] 5.8 % High <=5.6 [facility] Comment on above: Order Comment: Order Date: 12/06/24Order Info: [id number] - A1C Result Comment: Norm al < 5.7 % Prediabetic 5.7 - 6.4 % Diabetic >or= 6.5 % Please note range changes. Performed By: #### L 501.9520, L501.9985, L500.4100, L100.0100, L501.9910, L500.4050 ####[facility] [address] [place], [address] Hemoglobin A1c percentageOrd ered By: Monroe Rothman on 12-06-2024 HbA1c (Bld) [Mass fraction] 5.8 % High <5.7 [facility] Comment on above: Normal < 5.7 % Predi abetic 5.7 - 6.4 % Diabetic >or= 6.5 % Please note range changes. Hemoglobin measurementOrdere d By: Monroe Rothman on 12-06-2024 Hemoglobin (Bld) [Mass/Vol] 12.2 g/dL Low 13.0-16.5 [facility] Immature granulocytes/100 WB C Auto (Bld)Ordered By: Monroe Rothman on 12-06-2024 Immature granulocytes/100 WBC (Bld) 0.300 % 0.0-0.9 [facility] Comment on above: IG% - Immature Granu locytes (promyelocytes, myelocytes and metamyelocytes) > 1% indicates that a LEFT SHIFT is Present. LDL calc ser/plasOrdered By: Monroe Rothman on 12-06-2024 Cholesterol in LDL [Mass/Vol] 104 mg/dL [facility] Comment on above: Tuqkzqqkhl=994-919 m g/dL & Higher Nbmn=619 mg/dL or greater Laboratory - Chemistry and C hemistry - challengeOrdered By: Monroe Rothman on 12-06-2024 AST [Catalytic activity/Vol] 17 U/L <38 [facility] Lipid Profileon 12-06-2024 CHOL:HDL 7.26 Normal [facility] Comment on above: Order Comment: Order Date: 12/06/24Order Info: [id number] - CMPOrder Info: [id number] - LIPIDOrder Info: [id number] - TSHOrder Info: [id number] - PSA Performed By: #### L 501.9520, L501.9985, L500.4100, L100.0100, L501.9910, L500.4050 ####[facility] [address] [place], [address] Cholesterol [Mass/Vol] 172 mg/dL Normal <=200 [facility] Comment on above: Order Comment: Order Date: 12/06/24Order Info: [id number] - CMPOrder Info: [id number] - LIPIDOrder Info: [id number] - TSHOrder Info: [id number] - PSA Result Comment: Chol esterol level, Desirable <200 mg/dLBorderline high cholesterol 200-239 mg/dLHigh cholesterol >=240 mg/dLRecommendations of the NCEP Adult Treatment Panel for thefollowing risk-cutoff thresholds for the [place] [facility]. Performed By: #### L 501.9520, L501.9985, L500.4100, L100.0100, L501.9910, L500.4050 ####[facility] [address] [place], [address] Cholesterol in HDL [Mass/Vol] 24 mg/dL Low [facility] Comment on above: Order Comment: Order Date: 12/06/24Order Info: [id number] - CMPOrder Info: [id number] - LIPIDOrder Info: [id number] - TSHOrder Info: [id number] - PSA Result Comment: Lis onal Cholesterol Education Program (NCEP) guidelines:<40 mg/dL: Low HDL-cholesterol (major risk factor for CHD)>= 60 mg/dL: High HDL-cholesterol (negative risk factor forCHD)HDL-cholesterol is affected by a number of factors, e.g.smoking, exercise, hormones, sex and age. Performed By: #### L 501.9520, L501.9985, L500.4100, L100.0100, L501.9910, L500.4050 ####[facility] [address] [place], [address] Cholesterol in LDL [Mass/Vol] 104 mg/dL Normal [facility] Comment on above: Order Comment: Order Date: 12/06/24Order Info: [id number] - CMPOrder Info: [id number] - LIPIDOrder Info: 3 - TSHOrder Info: [id number] - PSA Result Comment: Bord zbrzdj=576-131 mg/dL Higher Incz=663 mg/dL or greater Performed By: #### L 501.9520, L501.9985, L500.4100, L100.0100, L501.9910, L500.4050 ####[facility] [address] [place], [address] Cholesterol in VLDL [Mass/Vol] 44 mg/dL High 5-40 [facility] Comment on above: Order Comment: Order Date: 12/06/24Order Info: [id number] - CMPOrder Info: - LIPIDOrder Info: [id number] - TSHOrder Info: [id number] - PSA Performed By: #### L 501.9520, L501.9985, L500.4100, L100.0100, L501.9910, L500.4050 ####[facility] [address] [place], [address] Triglyceride [Mass/Vol] 220 mg/dL High [facility] Comment on above: Order Comment: Order Date: 12/06/24Order Info: [id number] - CMPOrder Info: [id number] - LIPIDOrder Info: [id number] - TSHOrder Info: [id number] - PSA Result Comment: The drugs N-Acetylcysteine and Metamizole may falselydepress this assay.Normal range: <150 mg/dLBorderline High: 150-199 mg/dLHigh: 200-499 mg/dLVery High: >500 mg/dL Performed By: #### L 501.9520, L501.9985, L500.4100, L100.0100, L501.9910, L500.4050 ####[facility] [address] [place], [address] MCV (mean corpuscular volume ) determinationOrdered By: Monroe Rothman on 12-06-2024 MCV (RBC) [Entitic vol] 87.2 fL 80-94 [facility] Mean corpuscular hemoglobin (MCH) determinationOrdered By: [facility] on 12-06-2024 MCH (RBC) [Entitic mass] 30.0 pg 27.0-32.0 [facility] Mean corpuscular hemoglobin concentration (MCHC) determinationOrdered By: [facility] on 12-06-2024 MCHC (RBC) [Mass/Vol] 34.4 g/dL 32-36 [facility] Mean platelet volume determi nationOrdered By: [facility] on 12-06-2024 Platelet mean volume (Bld) [Entitic vol] 10.0 fL 6.2-12.0 [facility] Monocyte percentageOrdered B y: [facility] on 12-06-2024 Monocytes/100 WBC (Bld) 8.1 % 0-10 [facility] Neutrophil percentageOrdered By: [facility] on 12-06-2024 Neutrophils/100 WBC (Bld) 60.3 % 47-70 [facility] Nucleated red blood cell per centageOrdered By: [facility] on 12-06-2024 Nucleated RBC/100 WBC (Bld) [Ratio] 0 % 0-5 [facility] PSA,Total - Annual Screenon 12-06-2024 PSA,TOT SCREEN 0.60 ng/mL Normal 0.02-4.00 [facility] Comment on above: Order Comment: Order Date: 12/06/24Order Info: [id number] - CMPOrder Info: [id number] - LIPIDOrder Info: [id number] - TSHOrder Info: [...] L 501.9520, L501.9985, L500.4100, L100.0100, L501.9910, L500.4050 ####[facility] [address] [place], [address] Platelet countOrdered By: Daniel Rothman on 12-06-2024 Platelets (Bld) [#/Vol] 221 10*3/uL 150-450 [facility] Potassium measurement (mass/ volume)Ordered By: Monroe Rothman on 12-06-2024 Potassium (Unsp spec) [Mass/Vol] 3.7 mmol/L 3.3-5.1 [facility] RBC Auto (Bld) [#/Vol]Ordere d By: Monroe Rothman on 12-06-2024 RBC (Bld) [#/Vol] 4.07 10*6/uL Low 4.6-6.2 [facility] Screening total cholesterol/ high density lipoprotein (HDL) cholesterol ratioOrdered By: Monroe Rothman on 12-06-2024 Cholesterol.total/Shannan sterol in HDL [Mass ratio] 7.26 {ratio} [facility] Serum creatinine measurement (mass/volume)Ordered By: Monroe Rothman on 12-06-2024 Creatinine [Mass/Vol] 1.76 mg/dL High 0.70-1.20 [facility] Serum globulin measurementOr dered By: Monroe Rothman on 12-06-2024 Globulin (S) [Mass/Vol] 2.6 g/dL 2.2-4.2 [facility] Serum glucose measurement (m ass/volume)Ordered By: Monroe Rothman on 12-06-2024 Glucose [Mass/Vol] 94 mg/dL 70-99 [facility] Serum or plasma alanine stephens otransferase (ALT) measurementOrdered By: Monroe Rothman on 12-06-2024 ALT [Catalytic activity/Vol] 14 U/L <47 [facility] Serum or plasma albumin milagros urement (mass/volume)Ordered By: Monroe Rothman on 12-06-2024 Albumin [Mass/Vol] 4.1 g/dL 3.5-5.0 [facility] Serum or plasma albumin/glob ulin mass ratioOrdered By: Monroe Rothman on 12-06-2024 Albumin/Globulin [Mass ratio] 1.6 {ratio} 0.9-2.4 [facility] Serum or plasma alkaline melissa sphatase measurementOrdered By: Monroe Rothman on 12-06-2024 ALP [Catalytic activity/Vol] 95 U/L 40-129 [facility] Serum or plasma calcium milagros urement (mass/volume)Ordered By: Monroe Rothman on 12-06-2024 Calcium [Mass/Vol] 8.7 mg/dL 7.6-11.0 [facility] Serum or plasma cholesterol in HDL measurement (mass/volume)Ordered By: Monroe Rothman on 12-06-2024 Cholesterol in HDL [Mass/Vol] 24 mg/dL Low >40 [facility] Comment on above: National Cholesterol Education Program (NCEP) guidelines:<40 mg/dL: Low HDL-cholesterol (major risk factor for CHD)>= 60 mg/dL: High HDL-cholesterol (negative risk factor for CHD)HDL-cholesterol is affected by a number of factors, e.g. smoking, exercise, hormones, sex and age. Serum or plasma cholesterol measurement (mass/volume)Ordered By: Monroe Rothman on 12-06-2024 Cholesterol [Mass/Vol] 172 mg/dL <201 [facility] Comment on above: Cholesterol level, D esirable <200 mg/dLBorderline high cholesterol 200-239 mg/dLHigh cholesterol >=240 mg/dLRecommendations of the NCEP Adult Treatment Panel for the following risk-cutoff thresholds for the [place] population. Serum or plasma urea nitroge n measurement (mass/volume)Ordered By: Monroe Rothman on 12-06-2024 Urea nitrogen [Mass/Vol] 26 mg/dL High 4-19 [facility] Sodium levelOrdered By: Kristen Rothman on 12-06-2024 Sodium [Moles/Vol] 141 mmol/L 133-145 [facility] TSH DL <= 0.005 mIU/L QnOrde red By: Monroe Rothman on 12-06-2024 TSH Qn 2.680 uIU/mL 0.300-4.200 [facility] Thyroid Stim Hormone (TSH)on 12-06-2024 TSH 2.680 uIU/mL Normal 0.300-4.200 [facility] Comment on above: Order Comment: Order Date: 12/06/24Order Info: [id number] - CMPOrder Info: [id number] - LIPIDOrder Info: [id number] - TSHOrder Info: [id number] - PSA Performed By: #### L 501.9520, L501.9985, L500.4100, L100.0100, L501.9910, L500.4050 ####[facility] [address] [place], [place], [address] Total proteinOrdered By: Sherrill Rothman on 12-06-2024 Protein [Mass/Vol] 6.6 g/dL 5.9-8.4 [facility] Triglycerides measurementOrd ered By: Monroe Rothman on 12-06-2024 Triglyceride [Mass/Vol] 220 mg/dL High <199 [facility] Comment on above: The drugs N-Acetylcy steine and Metamizole may falsely depress this assay. Normal range: <150 mg/dLBorderline High: 150-199 mg/dLHigh: 200-499 mg/dLVery High: >500 mg/dL Vitamin D,25 Hydroxyon 12-06 Vitamin D 25-OH 12.5 ng/mL Low 30-100 [facility] Comment on above: Order Comment: Order Date: 12/06/24Order Info: [id number] - CMPOrder Info: [id number] - LIPIDOrder Info: [id number] - TSHOrder Info: [id number] - PSA Result Comment: Ilana min D StatusDeficiency: <20 ng/mL (50nmol/L)Insufficiency: 20-30 ng/mL (50-75 nmol/L)Sufficiency: 30-100 ng/mL (75-250 nmol/L)Toxicity: >100 ng/mL (>250 nmol/L) Performed By: #### L 506.1001 ####[facility] [address] [place], [address] White blood cell (WBC) count Ordered By: Monroe Rothman on 12-06-2024 WBC (Bld) [#/Vol] 5.8 10*3/uL 4.4-11.0 [facility] Basophil percentageOrdered B y: Rosa Steinberg on 12-03-2022 Bilirubin [Mass/Vol] 0.40 mg/dL 0.20-1.00 [facility] Comment on above: For patients on eltr ombopag therapy, use of Dimension [place] TBIL is not recommended. Chloride [Moles/Vol] 105 mmol/L 98-107 [facility] Cholesterol [Mass/Vol] 200 mg/dL <200 [facility] Comment on above: <200 mg/dL Desirable 200-240 mg/dL Borderline >240 mg/dL High Risk Glucose [Mass/Vol] 109 mg/dL 74-106 [facility] Comment on above: Fasting Glucose resu lt from 100 to 125 mg/dL suggests IMPAIRED HOMEOSTASIS per A.D.A. criteria. Potassium [Moles/Vol] 4.5 mmol/L 3.5-5.1 [facility] Protein [Mass/Vol] 7.5 g/dL 6.4-8.2 [facility] Sodium [Moles/Vol] 137 mmol/L 136-145 [facility] Triglyceride [Mass/Vol] 255 mg/dL <199 [facility] Comment on above: The drugs N-Acetylcy steine and Metamizole may falsely depress this assay.Serum Triglycerides Reference Interval Normal <150 mg/dL Borderline high 150 - 199 mg/dL High 200 - 499 mg/dL Very High > or = 500 mg/dL Laboratory - Chemistry and C hemistry - challengeOrdered By: Rosa Steinberg on 12-03-2022 ALP [Catalytic activity/Vol] 96 U/L 45-117 [facility] ALT [Catalytic activity/Vol] 30 U/L 16-61 [facility] CO2 [Moles/Vol] 26.0 mmol/L 21.0-32.0 [facility] Globulin (S) [Mass/Vol] 3.7 g/dL 2.2-4.2 [facility] Urea nitrogen/Creatinine [Mass ratio] 18.0 mg/mg 10-20 [facility] No Panel InformationOrdered By: Rosa Steinberg on 12-03-2022 Estimated GFR (MDRD) Amer 106 mL/min >60 [facility] Comment on above: GFR Calc Estimated GFR (MDRD) Non-Af Amer 88 mL/min >60 [facility] Comment on above: Non- GFR Calc Prostate Specific Antigen Screen 0.87 ng/mL 0.00-4.00 [facility] Comment on above: This test was perfor med using the TPSA assay method for [employer] chemistry system. Values obtained with differentassay methods cannot be used interchangably.When changing PSA assays in the course of monitoring apatient, additional sequential testing should be carriedout to confirm baseline values. Thyroid Stimulating Hormone (TSH) 1.99 uIU/mL 0.358-3.74 [facility] Serum or plasma albumin milagros urement (mass/volume)Ordered By: Rosa Steinberg on 12-03-2022 Albumin [Mass/Vol] 3.8 g/dL 3.2-5.0 [facility] Serum or plasma albumin/glob ulin mass ratioOrdered By: Rosa Steinberg on 12-03-2022 Albumin/Globulin [Mass ratio] 1.0 {ratio} 0.9-2.4 [facility] Serum or plasma calcium milagros urement (mass/volume)Ordered By: Rosa Steinberg on 12-03-2022 Calcium [Mass/Vol] 9.0 mg/dL 8.5-10.1 [facility] Serum or plasma cholesterol in HDL measurement (mass/volume)Ordered By: Rosa Steinberg on 12-03-2022 Cholesterol in HDL [Mass/Vol] 27 mg/dL >40 [facility] Comment on above: The drugs N-Acetylcy steine and Metamizole may falsely depress this assay. Reference Range HDL <40 mg/dL Low HDL Cholesterol HDL >or= 60 mg/dL High HDL Cholesterol Serum or plasma cholesterol in VLDL measurement (mass/volume)Ordered By: Rosa Steinberg on 12-03-2022 Cholesterol in VLDL [Mass/Vol] 51 mg/dL 5-40 [facility] Serum or plasma creatinine m easurement (mass/volume)Ordered By: Rosa Steinberg on 12-03-2022 Creatinine [Mass/Vol] 0.95 mg/dL 0.70-1.30 [facility] Comment on above: The validity of the calculated GFR & GFRAA in patients over 70 years has not been determined. Clinical correlation is essential. Serum or plasma low density lipoprotein (LDL) cholesterol measurement (mass/volume)Ordered By: Rosa Steinberg on 12-03-2022 Cholesterol in LDL [Mass/Vol] 122 mg/dL 0-130 [facility] Serum or plasma urea nitroge n measurement (mass/volume)Ordered By: Rosa Steinberg on 12-03-2022 Urea nitrogen [Mass/Vol] 17 mg/dL 7-18 [facility] Thin prep Papanicolaou smear with manual screeningOrdered By: Rosa Steinberg on 12-03-2022 Thin prep Papanicolaou smear with manual screening 13 U/L 15-37 [facility] Thin prep Papanicolaou smear with manual screening 6 5-15 [facility] Thin prep Papanicolaou smear with manual screening 13.8 mg/L NO RANGE EST. [facility] Whole blood hemoglobin A1c/t otal hemoglobin ratio (mass fraction)Ordered By: Rosa Steinberg on 12-03-2022 HbA1c (Bld) [Mass fraction] 5.6 % 3.8-5.6 [facility] Comment on above: Normal < 5.7 % Predi abetic 5.7 - 6.4 % Diabetic >or= 6.5 % Please note range changes. Vital Signs Date Time Vital Sign Value Performing Clinician Yasiri mery 11-17-2022 07:59-0400 Body height 182.[address] Adal SMITH Work Phone: [facility] 11-17-2022 07:59-0400 Body mass index (BMI) [Ratio] 34.8 kg/m2 Dr. Adal SMITH Work Phone: [facility] 11-17-2022 07:59-0400 Body temperature 96 [degF] Dr. Adal SMITH Work Phone: [facility] 04-24-2023 07:59-0400 Body weight 116.[address] Adal SMITH Work Phone: [facility] 11-17-2022 07:59-0400 Diastolic blood pressure 81 mm[Hg] Dr. Adal SMITH Work Phone: [facility] 11-17-2022 07:59-0400 Heart rate 60 /min Dr. Adal SMITH Work Phone: [facility] 11-17-2022 07:59-0400 Respiratory rate 17 /min Dr. Adal SMITH Work Phone: [facility] 11-17-2022 07:59-0400 SaO2% (BldA) [Mass fraction] 95 % Dr. Adal SMITH Work Phone: [facility] 11-17-2022 07:59-0400 Systolic blood pressure 147 mm[Hg] Dr. Adal SMITH Work Phone: [facility] Encounters Encounter Date Encounter Type Care Provider Facility [facility]: [facility] Start: [facility]-14-[facility] Start: 05-13-2025 End: 05-13-2025 ambulatory [facility] Facility:[facility] Start: 05-12-2025 End: 05-12-2025 ambulatory [facility] Facility:[facility] Start: 05-11-2025 End: 05-11-2025 ambulatory [facility] Facility:[facility] Start: 05-04-2025 ambulatory Beni Carolina Facility:[facility] Start: 05-04-2025 End: 05-10-2025 Evaluation and management of inpatient Jani Tello Facility:[facility] Start: 01-23-2025 End: 01-23-2025 ambulatory Monroe Rothman MD Work Phone: [facility] Start: 01-23-2025 End: 01-23-[address] Monroe Rothman MD [facility] Work Phone: Start: 01-23-2025 End: 01-23-2025 ambulatory Kristenkaylee Lorna Facility:[facility] Start: 12-09-2024 Encounter for genera l adult medical examination without abnormal findings Monroe Butterfieldke [facility] Start: 12-06-2024 End: 12-06-2024 ambulatory Monroe Rothman MD Work Phone: [facility] Work Phone: Start: 12-06-2024 End: 12-06-[address] Monroe Rothman MD [facility] Work Phone: Start: 12-06-2024 End: 12-06-2024 ambulatory Monroe Rothman Facility:[facility] Start: 12-03-2022 End: 12-03-[address] Adal SMITH Work Phone: [facility] Work Phone: Start: 12-03-2022 End: 12-03-[address] Adal SMITH Work Phone: [facility] Start: 11-19-2022 End: 11-19-[address] Adal SMITH Work Phone: [facility] Start: 11-17-2022 End: 11-17-[address] Adal SMITH Work Phone: [facility] Procedures Date Procedure Procedure Detail [...] nmol/L) Payers Date Payer Category Payer Self-pay [id number] 2024 Unknown [id number] Unknown [id number] Unknown [id number] 2.16.8 [id number] Unknown [id number] 2.16.8 40.1.285671.3.579.2.462 Unknown [id number] 2.16.8 40.1.916585.3.579.2.462 Unknown [id number] 2.16.8 40.1.042044.3.579.2.462 Unknown [id number] 2.16.8 40.1.221353.3.579.2.462 Unknown [id number] 2.16.8 40.1.809702.3.579.2.462 Unknown [id number] 2.16.8 40.1.243249.3.579.2.462 Unknown [id number] 2.16.8 40.1.324372.3.579.2.462 Unknown [id number] 2.16.8 40.1.165052.3.579.2.462 Unknown [id number] 2.16.8 40.1.314254.3.579.2.462 Unknown [id number] 2.16.8 40.1.959095.3.579.2.462 Unknown [id number] 2.16.8 40.1.898536.3.579.2.462 Unknown [id number] 2.16.8 40.1.316742.3.579.2.462 Unknown [id number] 2.16.8 40.1.250645.3.579.2.462 Unknown [id number] 2.16.8 40.1.819266.3.579.2.462 Social History Date Type Detail Facility Start: 11-19-2022 Tobacco smoking stat [facility] Unknown if ever smoked [facility] Start: 1965 Sex Assigned At Male [facility] Start: 11-19-2022 Tobacco smoking stat [facility] Smokes tobacco daily (finding) [facility] Microscopic observation Gram stain Nom (Unsp spec) 05-05-2025 Note Date & Type Note Facility 05-05-2025 Note Acceptable Specimen? Acceptable Specimen(Evaluation not needed) Gram Stain 2+ Gram positive cocci 1+ Gram positive rods 2+ White Blood Cells No Epithelial cells [facility] Comment on above: Performed By: #### M 100.2400, M100.2000 ####[facility] [id number] [facility] [place], [place], [address] Radiology Diagnostic study note 01-23-2025 Note Date & Type Note Facility 01-23-2025 Radiology Diagnostic study note [facility] [address] [place], [place] [address] Elbow min 3 Views MR#: [id number] Acct: [id number] Name: NOAH DOMINGUEZ Rep #: [id number] : 1965 M 59 From: Shawn Lipscomb MD PCP: Dr. Monroe Rothman MD Status: REG CL I Study:Elbow min 3 Views Date of Exam: Exam# [id number] Ordering Dr: Sherrill Rothman MD PROCEDURE: ELBOW MIN 3 VIEWS 01/23/2025 REASON FOR EXAM: SWELLING WITH CELLULITIS TECHNIQUE: ELBOW MIN 4 VIEWS COMPARISON: None FINDINGS: Bones: No fracture or suspicious osseous lesion Joints: Normal alignment. Soft tissues: Diffuse nonspecific soft tissue swelling Other: RAD/Elbow min 3 Views IMPRESSION: No fracture or suspicious osseous lesion Joint spaces well-preserved Nonspecific soft tissue swelling Reading Location: [id number] CC: Dr. Monroe Rothman MD ~ [employer] [employer] Clerk: Signed [facility] Evaluation note Note Date & Type Note Facility Evaluation note Diagnosis Onset Date Epidermal cyst of neck acute Neck pain acute Epidermal cyst of neck acute Neck pain acute [facility] Work Phone: Evaluation note Note Date & Type Note Facility Evaluation note No assessment information availa ble [facility] Work Phone: Reason for referral (narrative) Note Date & Type Note Facility Reason for referral (narrative) No reason for referral information available [facility] Work Phone: Chief Complaint and Reason [...] ized section and content) DATE CREATED AUTHOR 05/13/2025 [facility] FOR RECORDS PERTAINING TO PATIENTS WHO [...] BE BASED ON THE PRIMARY CLINICAL RECORDS. [facility] [employer] provides no warranty or guarantee of the accuracy or completeness of information in this document.
--- OUTSIDE RECORDS SUMMARY | 2025-05-14 11:47 | XMS RPT_ITS | CCD ---
Author Organization [facility] Care Team Providers Care Lot Boss Name Role Phone Dr. Adal Zee Primary Care Provider [phone] Dr. Adal Zee Referring Provider Dr. Wilber Patrick Attending Provider Lorna SAWANT, [place] Primary Care Provider [phone] [place] Rothman MD Attending Provider [phone] Lorna SAWANT, [place] Referring Provider Juan Macdonald Attending Unavailable Juan Macdonald Referring [...] (3 sources) Citalopram Drug Allergy 3 Other [facility] Comment on above: headaches (3 sources) Sulfonamides (Antibiotic) Allergy to substance 3 unknown [facility] (1 source) Citalopram Drug Allergy 5 [facility] (1 source) Sulfonamides (Antibiotic) Drug allergy (disorder) 5 [facility] Medications Current Medications Medication Drug Class(es) Dates Sig (Normalized) Sig (Original) [id number] 200 actuat albuterol 0.09 mg/actuat metered dose [...] 05-10-2025 FINGERSTICK GLU 156 mg/dL High 74-106 [facility] Comment on above: Result Comment: KIANA GEMENT OF PATIENT CARE PER NURSING PROTOCOL Performed By: #### L 501.080 ####[facility] [address] [place], [address] FINGERSTICK GLU 108 mg/dL High 74-106 [facility] Comment on above: Result Comment: KIANA GEMENT OF PATIENT CARE PER NURSING PROTOCOL Performed By: #### L 501.080 ####[facility] [address] [place], [address] Discharge Instructionon 04-26 Discharge Instruction Normal [facility] Renal Profileon 05-10-2025 Albumin [Mass/Vol] 2.7 g/dL Low 3.5-5.0 [facility] Comment on above: Performed By: #### L 500.3600 ####[facility] [address] [place], [address] BUN/CRE 21.3 RATIO High -20 [facility] Comment on above: Performed By: #### L 500.3600 ####[facility] [address] [place], [address] Calcium [Mass/Vol] 7.7 mg/dL Normal 7.6-11.0 [facility] Comment on above: Performed By: #### L 500.3600 ####[facility] [address] [place], [address] Chloride [Moles/Vol] 104 mmol/L Normal 98-108 [facility] Comment on above: Performed By: #### L 500.3600 ####[facility] [address] [place], [address] CO2 [Moles/Vol] 21.2 mmol/L Normal 21.0-32.0 [facility] Comment on above: Performed By: #### L 500.3600 ####[facility] [address] [place], [address] Creatinine [Mass/Vol] 2.96 mg/dL High 0.70-1.20 [facility] Comment on above: Performed By: #### L 500.3600 ####[facility] [address] [place], [address] ECRCL 35.15 ml/min Low 50-250 [facility] Comment on above: Performed By: #### L 500.3600 ####[facility] [address] [place], [address] GAP 12 Normal 5-15 [facility] Comment on above: Performed By: #### L 500.3600 ####[facility] [address] [place], [address] GFR/1.73 sq M.predicted among non-blacks MDRD (S/P/Bld) [Vol rate/Area] 24 mL/min/{1.73_m2} Low >60 [facility] Comment on above: Result Comment: mL/m in/1.73m2 CKD-EPI Creatinine Equation (2020) Performed By: #### L 500.3600 ####[facility] [address] [place], [address] Glucose [Mass/Vol] 119 mg/dL High 70-99 [facility] Comment on above: Performed By: #### L 500.3600 ####[facility] [address] [place], [address] Phosphate [Mass/Vol] 5.2 mg/dL High 2.7-4.5 [facility] Comment on above: Performed By: #### L 500.3600 ####[facility] [address] [place], [address] Potassium [Moles/Vol] 3.5 mmol/L Normal 3.3-5.1 [facility] Comment on above: Performed By: #### L 500.3600 ####[facility] [address] [place], [address] Sodium [Moles/Vol] 137 mmol/L Normal 133-145 [facility] Comment on above: Performed By: #### L 500.3600 ####[facility] [address] [place], [address] Urea nitrogen [Mass/Vol] 63 mg/dL High 4-19 [facility] Comment on above: Performed By: #### L 500.3600 ####[facility] [address] [place], [address] ANCAon 05-09-2025 Atypical pANCA <1:20 Normal Neg:<1:20 [facility] Comment on above: Result Comment: The atypical pANCA pattern has been observed in asignificant percentage of patients with ulcerative colitis,primary sclerosing cholangitis and autoimmune hepatitis. Performed By: #### L 3100.3450, L3400.4200, L3100.5700, L3300.1200, L3100.5800 ####[facility] [address] [place], [address] Cytoplasmic Ab <1:20 Normal Neg:<1:20 [facility] Comment on above: Performed By: #### L 3100.3450, L3400.4200, L3100.5700, L3300.1200, L3100.5800 ####[facility] [address] [place], [address] Perinuclear Ab. <1:20 Normal Neg:<1:20 [facility] Comment on above: Result Comment: The presence of positive fluorescence exhibiting P-ANCA orC-ANCA patterns alone is not specific for the diagnosis ofWegener's Granulomatosis (WG) or microscopic polyangiitis.Decisions about treatment should not be based solely onANCA IFA results. The [employer] ANCA Group Consensusrecommends follow up testing of positive sera with both TX-3 and MPO-ANCA enzyme immunoassays. As many as 5% serumsamples are positive only by EIA. Ref. AM J Clin Svfbrg6119;111:507-513. Performed By: #### L 3100.3450, L3400.4200, L3100.5700, L3300.1200, L3100.5800 ####[facility] [address] [place], [address] Anti-Glomerular Basement Mem bon 05-09-2025 ANTI-GLOM BM Ab < 0.2 Normal 0.0-0.9 [facility] Comment on above: Result Comment: Perf ormed at: - [facility] [address] [id number] Director: Compa Abdullahi PhD, Phone: [phone] at: [facility] [address] [id number] Director: Gautam Hager MD, Phone: [phone] Performed By: #### L 3100.3450, L3400.4200, L3100.5700, L3300.1200, L3100.5800 ####[facility] [address] [place], [address] Basic Metabolic Profile (BMP )on 05-09-2025 BUN/CRE 18.9 RATIO Normal 05-15 [facility] Comment on above: Performed By: #### L 100.0100, L500.2500 ####[facility] [address] [place], [address] Calcium [Mass/Vol] 7.6 mg/dL Normal 7.6-11.0 [facility] Comment on above: Performed By: #### L 100.0100, L500.2500 ####[facility] [address] [place], [address] Chloride [Moles/Vol] 103 mmol/L Normal 98-108 [facility] Comment on above: Performed By: #### L 100.0100, L500.2500 ####[facility] [address] [place], [address] CO2 [Moles/Vol] 20.4 mmol/L Low 21.0-32.0 [facility] Comment on above: Performed By: #### L 100.0100, L500.2500 ####[facility] [address] [place], [address] Creatinine [Mass/Vol] 3.09 mg/dL High 0.70-1.20 [facility] Comment on above: Performed By: #### L 100.0100, L500.2500 ####[facility] [address] [place], [address] ECRCL 33.55 ml/min Low 50-250 [facility] Comment on above: Performed By: #### L 100.0100, L500.2500 ####[facility] [address] [place], [address] GAP 14 Normal 5-15 [facility] Comment on above: Performed By: #### L 100.0100, L500.2500 ####[facility] [address] [place], [address] GFR/1.73 sq M.predicted among non-blacks MDRD (S/P/Bld) [Vol rate/Area] 23 mL/min/{1.73_m2} Low >60 [facility] Comment on above: Result Comment: mL/m in/1.73m2 CKD-EPI Creatinine Equation (2020) Performed By: #### L 100.0100, L500.2500 ####[facility] [address] [place], [address] Glucose [Mass/Vol] 118 mg/dL High 70-99 [facility] Comment on above: Performed By: #### L 100.0100, L500.2500 ####[facility] [address] [place], [address] Potassium [Moles/Vol] 3.3 mmol/L Normal 3.3-5.1 [facility] Comment on above: Performed By: #### L 100.0100, L500.2500 ####[facility] [address] [place], [address] Sodium [Moles/Vol] 137 mmol/L Normal 133-145 [facility] Comment on above: Performed By: #### L 100.0100, L500.2500 ####[facility] [address] [place], [address] Urea nitrogen [Mass/Vol] 58 mg/dL High 4-19 [facility] Comment on above: Performed By: #### L 100.0100, L500.2500 ####[facility] [address] [place], [address] Bedside Glucoseon 05-09-2025 FINGERSTICK GLU 120 mg/dL High 74-106 [facility] Comment on above: Result Comment: KIANA GEMENT OF PATIENT CARE PER NURSING PROTOCOL Performed By: #### L 501.080 ####[facility] [address] [place], [address] FINGERSTICK GLU 123 mg/dL High 74-106 [facility] Comment on above: Result Comment: KIANA GEMENT OF PATIENT CARE PER NURSING PROTOCOL Performed By: #### L 501.080 ####[facility] [address] [place], [address] FINGERSTICK GLU 116 mg/dL High 74-106 [facility] Comment on above: Result Comment: KIANA GEMENT OF PATIENT CARE PER NURSING PROTOCOL Performed By: #### L 501.080 ####[facility] [address] [place], [address] FINGERSTICK GLU 111 mg/dL High 74-106 [facility] Comment on above: Result Comment: KIANA GEMENT OF PATIENT CARE PER NURSING PROTOCOL Performed By: #### L 501.080 ####[facility] [address] [place], [address] FINGERSTICK GLU 103 mg/dL Normal 74-106 [facility] Comment on above: Result Comment: KIANA GEMENT OF PATIENT CARE PER NURSING PROTOCOL Performed By: #### L 501.080 ####[facility] [address] [place], [address] FINGERSTICK GLU 93 mg/dL Normal 74-106 [facility] Comment on above: Result Comment: KIANA GEMENT OF PATIENT CARE PER NURSING PROTOCOL Performed By: #### L 501.080 ####[facility] [address] [place], [address] CBC W/Diff, Automatedon 10- Absolute Lymph 0.95 X10 3/uL Normal 0.83-4.51 [facility] Comment on above: Performed By: #### L 100.0100, L500.2500 ####[facility] [address] [place], [address] Absolute Neut 9.2 X10 3/uL High 2.0-7.7 [facility] Comment on above: Performed By: #### L 100.0100, L500.2500 ####[facility] [address] [place], [address] Basophils/100 WBC (Bld) 0.3 % Normal 0-[address] [facility] Comment on above: Performed By: #### L 100.0100, L500.2500 ####[facility] [address] [place], [address] Eosinophils/100 WBC (Bld) 0.0 % Normal 0-5 [facility] Comment on above: Performed By: #### L 100.0100, L500.2500 ####[facility] [address] [place], [address] Erythrocyte distribution width (RBC) [Ratio] 14.9 % High 11.6-14.6 [facility] Comment on above: Performed By: #### L 100.0100, L500.2500 ####[facility] [address] [place], [address] Hematocrit (Bld) [Volume fraction] 28.4 % Low 40-54 [facility] Comment on above: Performed By: #### L 100.0100, L500.2500 ####[facility] [address] [place], [address] Hemoglobin (Bld) [Mass/Vol] 9.5 g/dL Low 13.0-16.5 [facility] Comment on above: Performed By: #### L 100.0100, L500.2500 ####[facility] [address] [place], [address] IG% 3.300 High 0.0-0.9 [facility] Comment on above: Result Comment: IG% - Immature Granulocytes (promyelocytes, myelocytes andmetamyelocytes) > 1% indicates that a LEFT SHIFT is Present. Performed By: #### L 100.0100, L500.2500 ####[facility] [address] [place], [address] Lymphocytes/100 WBC (Bld) 8.5 % Low 19-41 [facility] Comment on above: Performed By: #### L 100.0100, L500.2500 ####[facility] [address] [place], [address] MCH (RBC) [Entitic mass] 27.4 pg Normal 27.0-32.0 [facility] Comment on above: Performed By: #### L 100.0100, L500.2500 ####[facility] [address] [place], [address] MCHC (RBC) [Mass/Vol] 33.5 g/dL Normal 32-36 [facility] Comment on above: Performed By: #### L 100.0100, L500.2500 ####[facility] [address] [place], [address] MCV (RBC) [Entitic vol] 81.8 fL Normal 80-94 [facility] Comment on above: Performed By: #### L 100.0100, L500.2500 ####[facility] [address] [place], [address] Monocytes/100 WBC (Bld) 5.4 % Normal 0-10 [facility] Comment on above: Performed By: #### L 100.0100, L500.2500 ####[facility] [address] [place], [address] Neutrophils/100 WBC (Bld) 82.5 % High 47-70 [facility] Comment on above: Performed By: #### L 100.0100, L500.2500 ####[facility] [address] [place], [address] Nucleated RBC (Bld) [#/Vol] 0 10*3/uL Normal 0-5 [facility] Comment on above: Performed By: #### L 100.0100, L500.2500 ####[facility] [address] [place], [address] Platelet mean volume (Bld) [Entitic vol] 11.1 fL Normal 6.2-12.0 [facility] Comment on above: Performed By: #### L 100.0100, L500.2500 ####[facility] [address] [place], [address] Platelets (Bld) [#/Vol] 157 10*3/uL Normal 150-450 [facility] Comment on above: Performed By: #### L 100.0100, L500.2500 ####[facility] [address] [place], [address] RBC (Bld) [#/Vol] 3.47 10*6/uL Low 4.6-6.2 [facility] Comment on above: Performed By: #### L 100.0100, L500.2500 ####[facility] [address] [place], [address] RDW SD 44.3 fl High 35.1-43.9 [facility] Comment on above: Performed By: #### L 100.0100, L500.2500 ####[facility] [address] [place], [address] WBC (Bld) [#/Vol] 11.2 10*3/uL High 4.4-11.0 [facility] Comment on above: Performed By: #### L 100.0100, L500.2500 ####[facility] [address] [place], [address] Complement C3on 05-09-2025 COMP C3 86 mg/dL Normal 82-167 [facility] Comment on above: Performed By: #### L 3100.3450, L3400.4200, L3100.5700, L3300.1200, L3100.5800 ####[facility] [address] [place], [address] Complement C4on 05-09-2025 COMPLEMENT, C4 25 mg/dL Normal 12-38 [facility] Comment on above: Performed By: #### L 3100.3450, L3400.4200, L3100.5700, L3300.1200, L3100.5800 ####[facility] [address] [place], [address] Protein Electroph, Son 05-09 Albumin [Mass/Vol] 2.0 g/dL Low 2.9-4.4 [facility] Comment on above: Performed By: #### L 3100.3450, L3400.4200, L3100.5700, L3300.1200, L3100.5800 ####[facility] [address] [place], [address] Albumin/Globulin [Mass ratio] 0.7 {ratio} Normal 0.7-1.7 [facility] Comment on above: Performed By: #### L 3100.3450, L3400.4200, L3100.5700, L3300.1200, L3100.5800 ####[facility] [address] [place], [address] ALPHA-1 GLOBUL 0.4 g/dL Normal 0.0-0.4 [facility] Comment on above: Performed By: #### L 3100.3450, L3400.4200, L3100.5700, L3300.1200, L3100.5800 ####[facility] [address] [place], [address] ALPHA-2 GLOBUL 0.9 g/dL Normal 0.4-1.0 [facility] Comment on above: Performed By: #### L 3100.3450, L3400.4200, L3100.5700, L3300.1200, L3100.5800 ####[facility] [address] [place], [address] BETA GLOBULIN 0.5 g/dL Low 0.7-1.3 [facility] Comment on above: Performed By: #### L 3100.3450, L3400.4200, L3100.5700, L3300.1200, L3100.5800 ####[facility] [address] [place], [address] GAMMA GLOBULIN 1.0 g/dL Normal 0.4-1.8 [facility] Comment on above: Performed By: #### L 3100.3450, L3400.4200, L3100.5700, L3300.1200, L3100.5800 ####[facility] [address] [place], [address] Globulin (S) [Mass/Vol] 2.8 g/dL Normal 2.2-3.[address] [facility] Comment on above: Performed By: #### L 3100.3450, L3400.4200, L3100.5700, L3300.1200, L3100.5800 ####[facility] [address] [place], [place], [address] INTERPRETATION Comment Normal . [facility] Comment on above: Result Comment: Prot ein electrophoresis scan will follow via computer,mail, or public area supervisor delivery. Performed By: #### L 3100.3450, L3400.4200, L3100.5700, L3300.1200, L3100.5800 ####[facility] [address] [place], [address] M-SPIKE Comment: Normal Not Observed [facility] Comment on above: Result Comment: SPE shows an asymmetrical gamma. Performed By: #### L 3100.3450, L3400.4200, L3100.5700, L3300.1200, L3100.5800 ####[facility] [address] [place], [place], [address] NOTE: Comment Normal . [facility] Comment on above: Result Comment: Elliot t band in gamma region suspicious for monoclonalimmunoglobulin. This band may represent a benign spike asseen in older people or could be a paraprotein as seen inMultiple Myeloma, Waldenstrom's Macroglobulinemia orLymphoma. Depending on clinical circumstances, furtherdiagnostic studies may include serum immunofixation orserum free light chain quantitation. Performed By: #### L 3100.3450, L3400.4200, L3100.5700, L3300.1200, L3100.5800 ####[facility] [address] [place], [address] Protein [Mass/Vol] 4.8 g/dL Low 6.0-8.5 [facility] Comment on above: Performed By: #### L 3100.3450, L3400.4200, L3100.5700, L3300.1200, L3100.5800 ####[facility] [address] [place], [address] Bedside Glucoseon 05-08-2025 FINGERSTICK GLU 107 mg/dL High 74-106 [facility] Comment on above: Result Comment: KIANA GEMENT OF PATIENT CARE PER NURSING PROTOCOL Performed By: #### L 501.080 ####[facility] [address] [place], [address] FINGERSTICK GLU 130 mg/dL High 74-106 [facility] Comment on above: Result Comment: KIANA GEMENT OF PATIENT CARE PER NURSING PROTOCOL Performed By: #### L 501.080 ####[facility] [address] [place], [address] FINGERSTICK GLU 106 mg/dL Normal 74-106 [facility] Comment on above: Result Comment: KIANA GEMENT OF PATIENT CARE PER NURSING PROTOCOL Performed By: #### L 501.080 ####[facility] [address] [place], [address] CBC W/Diff, Automatedon 04-26 Absolute Lymph 0.67 X10 3/uL Low 0.83-4.51 [facility] Comment on above: Performed By: #### L 100.0100, L500.4050 ####[facility] [address] [place], [address] Absolute Neut 7.8 X10 3/uL High 2.0-7.7 [facility] Comment on above: Performed By: #### L 100.0100, L500.4050 ####[facility] [address] [place], [address] Basophils/100 WBC (Bld) 0.1 % Normal 0-[address] [facility] Comment on above: Performed By: #### L 100.0100, L500.4050 ####[facility] [address] [place], [address] Eosinophils/100 WBC (Bld) 0.0 % Normal 0-5 [facility] Comment on above: Performed By: #### L 100.0100, L500.4050 ####[facility] [address] [place], [address] Erythrocyte distribution width (RBC) [Ratio] 15.6 % High 11.6-14.6 [facility] Comment on above: Performed By: #### L 100.0100, L500.4050 ####[facility] [address] [place], [address] Hematocrit (Bld) [Volume fraction] 24.4 % Low 40-54 [facility] Comment on above: Performed By: #### L 100.0100, L500.4050 ####[facility] [address] [place], [address] Hemoglobin (Bld) [Mass/Vol] 8.3 g/dL Low 13.0-16.5 [facility] Comment on above: Performed By: #### L 100.0100, L500.4050 ####[facility] [address] [place], [address] IG% 1.800 High 0.0-0.9 [facility] Comment on above: Result Comment: IG% - Immature Granulocytes (promyelocytes, myelocytes andmetamyelocytes) > 1% indicates that a LEFT SHIFT is Present. Performed By: #### L 100.0100, L500.4050 ####[facility] [address] [place], [address] Lymphocytes/100 WBC (Bld) 7.4 % Low 19-41 [facility] Comment on above: Performed By: #### L 100.0100, L500.4050 ####[facility] [address] [place], [address] MCH (RBC) [Entitic mass] 27.0 pg Normal 27.0-32.0 [facility] Comment on above: Performed By: #### L 100.0100, L500.4050 ####[facility] [address] [place], [address] MCHC (RBC) [Mass/Vol] 34.0 g/dL Normal 32-36 [facility] Comment on above: Performed By: #### L 100.0100, L500.4050 ####[facility] [address] [place], [address] MCV (RBC) [Entitic vol] 79.5 fL Low 80-[address] [facility] Comment on above: Performed By: #### L 100.0100, L500.4050 ####[facility] [address] [place], [address] Monocytes/100 WBC (Bld) 5.5 % Normal 0-10 [facility] Comment on above: Performed By: #### L 100.0100, L500.4050 ####[facility] [address] [place], [address] Neutrophils/100 WBC (Bld) 85.2 % High 47-70 [facility] Comment on above: Performed By: #### L 100.0100, L500.4050 ####[facility] [address] [place], [address] Nucleated RBC (Bld) [#/Vol] 0 10*3/uL Normal 0-5 [facility] Comment on above: Performed By: #### L 100.0100, L500.4050 ####[facility] [address] [place], [address] Platelet mean volume (Bld) [Entitic vol] 10.9 fL Normal 6.2-12.0 [facility] Comment on above: Performed By: #### L 100.0100, L500.4050 ####[facility] [address] [place], [address] Platelets (Bld) [#/Vol] 108 10*3/uL Low 150-450 [facility] Comment on above: Performed By: #### L 100.0100, L500.4050 ####[facility] [address] [place], [address] RBC (Bld) [#/Vol] 3.07 10*6/uL Low 4.6-6.2 [facility] Comment on above: Performed By: #### L 100.0100, L500.4050 ####[facility] [address] [place], [address] RDW SD 45.3 fl High 35.1-43.9 [facility] Comment on above: Performed By: #### L 100.0100, L500.4050 ####[facility] [address] [place], [address] WBC (Bld) [#/Vol] 9.1 10*3/uL Normal 4.4-11.0 [facility] Comment on above: Performed By: #### L 100.0100, L500.4050 ####[facility] [address] [place], [address] Comprehensive Metabolic Prof ilon 05-08-2025 Albumin/Globulin [Mass ratio] 0.8 {ratio} Low 0.9-2.4 [facility] Comment on above: Performed By: #### L 100.0100, L500.4050 ####[facility] [address] [place], [address] ALK PHOS 82 U/L Normal 40-129 [facility] Comment on above: Performed By: #### L 100.0100, L500.4050 ####[facility] [address] [place], [address] ALT [Catalytic activity/Vol] 31 U/L Normal <=46 [facility] Comment on above: Performed By: #### L 100.0100, L500.4050 ####[facility] [address] [place], [address] AST [Catalytic activity/Vol] 68 U/L High <=37 [facility] Comment on above: Performed By: #### L 100.0100, L500.4050 ####[facility] [address] [place], [address] Bilirubin [Mass/Vol] 0.66 mg/dL Normal 0.00-1.30 [facility] Comment on above: Performed By: #### L 100.0100, L500.4050 ####[facility] [address] [place], [address] BUN/CRE 15.9 RATIO Normal 10-20 [facility] Comment on above: Performed By: #### L 100.0100, L500.4050 ####[facility] [address] [place], [address] CO2 [Moles/Vol] 21.3 mmol/L Normal 21.0-32.0 [facility] Comment on above: Performed By: #### L 100.0100, L500.4050 ####[facility] [address] [place], [address] Creatinine [Mass/Vol] 3.31 mg/dL High 0.70-1.20 [facility] Comment on above: Performed By: #### L 100.0100, L500.4050 ####[facility] [address] [place], [address] ECRCL 31.70 ml/min Low 50-250 [facility] Comment on above: Performed By: #### L 100.0100, L500.4050 ####[facility] [address] [place], [address] GAP 12 Normal 5-15 [facility] Comment on above: Performed By: #### L 100.0100, L500.4050 ####[facility] [address] [place], [address] GFR/1.73 sq M.predicted among non-blacks MDRD (S/P/Bld) [Vol rate/Area] 21 mL/min/{1.73_m2} Low >60 [facility] Comment on above: Result Comment: mL/m in/1.73m2 CKD-EPI Creatinine Equation (2020) Performed By: #### L 100.0100, L500.4050 ####[facility] [address] [place], [address] Globulin (S) [Mass/Vol] 3.0 g/dL Normal 2.2-4.2 [facility] Comment on above: Performed By: #### L 100.0100, L500.4050 ####[facility] [address] [place], [address] Glucose [Mass/Vol] 136 mg/dL High 70-99 [facility] Comment on above: Performed By: #### L 100.0100, L500.4050 ####[facility] [address] [place], [address] Potassium [Moles/Vol] 4.0 mmol/L Normal 3.3-5.1 [facility] Comment on above: Performed By: #### L 100.0100, L500.4050 ####[facility] [address] [place], [address] T PROT 5.4 g/dL Low 5.9-8.4 [facility] Comment on above: Performed By: #### L 100.0100, L500.4050 ####[facility] [address] [place], [address] Consultation - Infectious Dx on 05-08-2025 Consultation - Infectious Dx Normal [facility] Culture, Blood (WB)on 2024 CUB Normal [facility] Comment on above: Performed By: #### M 200.1000 ####[facility] [address] [place], [address] Renal Profileon 05-08-2025 Albumin [Mass/Vol] 2.4 g/dL Low 3.5-5.0 [facility] Comment on above: Performed By: #### L 500.3600 ####[facility] [address] [place], [address] Performed By: #### L 100.0100, L500.4050 ####[facility] [address] [place], [address] BUN/CRE 15.7 RATIO Normal 05-15 [facility] Comment on above: Performed By: #### L 500.3600 ####[facility] [address] [place], [address] Calcium [Mass/Vol] 7.3 mg/dL Low 7.6-11.0 [facility] Comment on above: Performed By: #### L 500.3600 ####[facility] [address] [place], [address] Performed By: #### L 100.0100, L500.4050 ####[facility] [address] [place], [address] Chloride [Moles/Vol] 104 mmol/L Normal 98-108 [facility] Comment on above: Performed By: #### L 500.3600 ####[facility] [address] [place], [address] Performed By: #### L 100.0100, L500.4050 ####[facility] [address] [place], [address] CO2 [Moles/Vol] 21.7 mmol/L Normal 21.0-32.0 [facility] Comment on above: Performed By: #### L 500.3600 ####[facility] [address] [place], [address] Creatinine [Mass/Vol] 3.38 mg/dL High 0.70-1.20 [facility] Comment on above: Performed By: #### L 500.3600 ####[facility] [address] [place], [address] ECRCL 31.04 ml/min Low 50-250 [facility] Comment on above: Performed By: #### L 500.3600 ####[facility] [address] [place], [address] GAP 11 Normal 5-15 [facility] Comment on above: Performed By: #### L 500.3600 ####[facility] [address] [place], [address] GFR/1.73 sq M.predicted among non-blacks MDRD (S/P/Bld) [Vol rate/Area] 20 mL/min/{1.73_m2} Low >60 [facility] Comment on above: Result Comment: mL/m in/1.73m2 CKD-EPI Creatinine Equation (2020) Performed By: #### L 500.3600 ####[facility] [address] [place], [address] Glucose [Mass/Vol] 138 mg/dL High 70-99 [facility] Comment on above: Performed By: #### L 500.3600 ####[facility] [address] [place], [address] Phosphate [Mass/Vol] 5.1 mg/dL High 2.7-4.5 [facility] Comment on above: Performed By: #### L 500.3600 ####[facility] [address] [place], [address] Potassium [Moles/Vol] 3.9 mmol/L Normal 3.3-5.1 [facility] Comment on above: Performed By: #### L 500.3600 ####[facility] [address] [place], [address] Sodium [Moles/Vol] 137 mmol/L Normal 133-145 [facility] Comment on above: Performed By: #### L 500.3600 ####[facility] [address] [place], [address] Performed By: #### L 100.0100, L500.4050 ####[facility] [address] [place], [address] Urea nitrogen [Mass/Vol] 53 mg/dL High 4-19 [facility] Comment on above: Performed By: #### L 500.3600 ####[facility] [address] [place], [address] Performed By: #### L 100.0100, L500.4050 ####[facility] [address] [place], [address] Bedside Glucoseon 05-07-2025 FINGERSTICK GLU 119 mg/dL High 74-106 [facility] Comment on above: Result Comment: KIANA GEMENT OF PATIENT CARE PER NURSING PROTOCOL Performed By: #### L 501.080 ####[facility] [address] [place], [address] FINGERSTICK GLU 132 mg/dL High 74-106 [facility] Comment on above: Result Comment: Dr Marcos rivera FollowedMANAGEMENT OF PATIENT CARE PER NURSING PROTOCOL Performed By: #### L 501.080 ####[facility] [address] [place], [address] FINGERSTICK GLU 137 mg/dL High 74-106 [facility] Comment on above: Result Comment: KIANA GEMENT OF PATIENT CARE PER NURSING PROTOCOL Performed By: #### L 501.080 ####[facility] [address] [place], [address] FINGERSTICK GLU 134 mg/dL High 74-106 [facility] Comment on above: Result Comment: KIANA GEMENT OF PATIENT CARE PER NURSING PROTOCOL Performed By: #### L 501.080 ####[facility] [address] [place], [address] Blood Gases by [facility] 025 BRADLY TEST Positive Normal [facility] Comment on above: Performed By: #### L 9000.0800 ####[facility] [address] [place], [address] Base excess Calc (Bld) [Moles/Vol] -1 mmol/L Normal -2 to +2 [facility] Comment on above: Performed By: #### L 9000.0800 ####[facility] [address] [place], [address] Blood Gas Type ART Normal [facility] Comment on above: Performed By: #### L 9000.0800 ####[facility] [address] [place], [address] CO2 [Moles/Vol] 24 mmol/L Normal [facility] Comment on above: Performed By: #### L 9000.0800 ####[facility] [address] [place], [address] FI02 30.0 Normal [facility] Comment on above: Performed By: #### L 9000.0800 ####[facility] [address] [place], [address] HCO3 (Bld) [Moles/Vol] 22.7 mmol/L Normal 22-[address] [facility] Comment on above: Performed By: #### L 9000.0800 ####[facility] [address] [place], [address] Mode AC Normal [facility] Comment on above: Performed By: #### L 9000.0800 ####[facility] [address] [place], [address] O2 Delivery Dev ET Tube Normal [facility] Comment on above: Performed By: #### L 9000.0800 ####[facility] [address] [place], [address] pCO2 31.9 mmHg Low 35-45 [facility] Comment on above: Performed By: #### L 9000.0800 ####[facility] [address] [place], [address] PEEP 5 Normal [facility] Comment on above: Performed By: #### L 9000.0800 ####[facility] [address] [place], [address] pH (Bld) 7.46 [pH] High 7.35-7.45 [facility] Comment on above: Performed By: #### L 9000.0800 ####[facility] [address] [place], [address] PO2 82 mmHG Normal 75-100 [facility] Comment on above: Performed By: #### L 9000.0800 ####[facility] [address] [place], [address] RR 18 Normal [facility] Comment on above: Performed By: #### L 9000.0800 ####[facility] [address] [place], [address] SITE R Radial Normal [facility] Comment on above: Performed By: #### L 9000.0800 ####[facility] [address] [place], [address] SO2 97 Normal 95-99 [facility] Comment on above: Performed By: #### L 9000.0800 ####[facility] [address] [place], [address] Vt 600.0 mL Normal [facility] Comment on above: Performed By: #### L 9000.0800 ####[facility] [address] [place], [address] CBC W/Diff, Automatedon 10-1 -2024 Absolute Lymph 0.80 X10 3/uL Low 0.83-4.51 [facility] Comment on above: Performed By: #### L 100.0100, L500.4050 ####[facility] [address] [place], [address] Absolute Neut 13.7 X10 3/uL High 2.0-7.7 [facility] Comment on above: Performed By: #### L 100.0100, L500.4050 ####[facility] [address] [place], [address] Basophils/100 WBC (Bld) 0.3 % Normal 0-[address] [facility] Comment on above: Performed By: #### L 100.0100, L500.4050 ####[facility] [address] [place], [address] Eosinophils/100 WBC (Bld) 0.0 % Normal 0-5 [facility] Comment on above: Performed By: #### L 100.0100, L500.4050 ####[facility] [address] [place], [address] Erythrocyte distribution width (RBC) [Ratio] 15.9 % High 11.6-14.6 [facility] Comment on above: Performed By: #### L 100.0100, L500.4050 ####[facility] [address] [place], [address] Hematocrit (Bld) [Volume fraction] 27.7 % Low 40-54 [facility] Comment on above: Performed By: #### L 100.0100, L500.4050 ####[facility] [address] [place], [address] Hemoglobin (Bld) [Mass/Vol] 9.8 g/dL Low 13.0-16.5 [facility] Comment on above: Performed By: #### L 100.0100, L500.4050 ####[facility] [address] [place], [address] IG% 1.800 High 0.0-0.9 [facility] Comment on above: Result Comment: IG% - Immature Granulocytes (promyelocytes, myelocytes andmetamyelocytes) > 1% indicates that a LEFT SHIFT is Present. Performed By: #### L 100.0100, L500.4050 ####[facility] [address] [place], [address] Lymphocytes/100 WBC (Bld) 5.1 % Low 19-41 [facility] Comment on above: Performed By: #### L 100.0100, L500.4050 ####[facility] [address] [place], [address] MCH (RBC) [Entitic mass] 27.6 pg Normal 27.0-32.0 [facility] Comment on above: Performed By: #### L 100.0100, L500.4050 ####[facility] [address] [place], [address] MCHC (RBC) [Mass/Vol] 35.4 g/dL Normal 32-36 [facility] Comment on above: Performed By: #### L 100.0100, L500.4050 ####[facility] [address] [place], [address] MCV (RBC) [Entitic vol] 78.0 fL Low 80-[address] [facility] Comment on above: Performed By: #### L 100.0100, L500.4050 ####[facility] [address] [place], [address] Monocytes/100 WBC (Bld) 6.0 % Normal 0-10 [facility] Comment on above: Performed By: #### L 100.0100, L500.4050 ####[facility] [address] [place], [address] Neutrophils/100 WBC (Bld) 86.8 % High 47-70 [facility] Comment on above: Performed By: #### L 100.0100, L500.4050 ####[facility] [address] [place], [address] Nucleated RBC (Bld) [#/Vol] 0 10*3/uL Normal 0-5 [facility] Comment on above: Performed By: #### L 100.0100, L500.4050 ####[facility] [address] [place], [address] Platelet mean volume (Bld) [Entitic vol] 11.2 fL Normal 6.2-12.0 [facility] Comment on above: Performed By: #### L 100.0100, L500.4050 ####[facility] [address] [place], [address] Platelets (Bld) [#/Vol] 138 10*3/uL Low 150-450 [facility] Comment on above: Performed By: #### L 100.0100, L500.4050 ####[facility] [address] [place], [address] RBC (Bld) [#/Vol] 3.55 10*6/uL Low 4.6-6.2 [facility] Comment on above: Performed By: #### L 100.0100, L500.4050 ####[facility] [address] [place], [address] RDW SD 45.3 fl High 35.1-43.9 [facility] Comment on above: Performed By: #### L 100.0100, L500.4050 ####[facility] [address] [place], [address] WBC (Bld) [#/Vol] 15.8 10*3/uL High 4.4-11.0 [facility] Comment on above: Performed By: #### L 100.0100, L500.4050 ####[facility] [address] [place], [address] [facility] 05-07-2025 Albumin [Mass/Vol] 2.5 g/dL Low 3.5-5.0 [facility] Comment on above: Performed By: #### L 100.0100, L500.4050 ####[facility] [address] [place], [address] Albumin/Globulin [Mass ratio] 0.8 {ratio} Low 0.9-2.4 [facility] Comment on above: Performed By: #### L 100.0100, L500.4050 ####[facility] [address] [place], [address] ALK PHOS 102 U/L Normal 40-129 [facility] Comment on above: Performed By: #### L 100.0100, L500.4050 ####[facility] [address] [place], [address] ALT [Catalytic activity/Vol] 30 U/L Normal <=46 [facility] Comment on above: Performed By: #### L 100.0100, L500.4050 ####[facility] [address] [place], [address] AST [Catalytic activity/Vol] 85 U/L High <=37 [facility] Comment on above: Performed By: #### L 100.0100, L500.4050 ####[facility] [address] [place], [address] Bilirubin [Mass/Vol] 1.01 mg/dL Normal 0.00-1.30 [facility] Comment on above: Performed By: #### L 100.0100, L500.4050 ####[facility] [address] [place], [address] BUN/CRE 11.3 RATIO Normal 10-20 [facility] Comment on above: Performed By: #### L 100.0100, L500.4050 ####[facility] [address] [place], [address] Calcium [Mass/Vol] 7.7 mg/dL Normal 7.6-11.0 [facility] Comment on above: Performed By: #### L 100.0100, L500.4050 ####[facility] [address] [place], [address] Chloride [Moles/Vol] 102 mmol/L Normal 98-108 [facility] Comment on above: Performed By: #### L 100.0100, L500.4050 ####[facility] [address] [place], [address] CO2 [Moles/Vol] 21.0 mmol/L Normal 21.0-32.0 [facility] Comment on above: Performed By: #### L 100.0100, L500.4050 ####[facility] [address] [place], [address] Creatinine [Mass/Vol] 2.52 mg/dL High 0.70-1.20 [facility] Comment on above: Performed By: #### L 100.0100, L500.4050 ####[facility] [address] [place], [address] ECRCL 41.63 ml/min Low 50-250 [facility] Comment on above: Performed By: #### L 100.0100, L500.4050 ####[facility] [address] [place], [address] GAP 12 Normal 5-15 [facility] Comment on above: Performed By: #### L 100.0100, L500.4050 ####[facility] [address] [place], [address] GFR/1.73 sq M.predicted among non-blacks MDRD (S/P/Bld) [Vol rate/Area] 29 mL/min/{1.73_m2} Low >60 [facility] Comment on above: Result Comment: mL/m in/1.73m2 CKD-EPI Creatinine Equation (2020) Performed By: #### L 100.0100, L500.4050 ####[facility] [address] [place], [address] Globulin (S) [Mass/Vol] 3.2 g/dL Normal 2.2-4.2 [facility] Comment on above: Performed By: #### L 100.0100, L500.4050 ####[facility] [address] [place], [address] Glucose [Mass/Vol] 153 mg/dL High 70-99 [facility] Comment on above: Performed By: #### L 100.0100, L500.4050 ####[facility] [address] [place], [address] Potassium [Moles/Vol] 3.9 mmol/L Normal 3.3-5.1 [facility] Comment on above: Performed By: #### L 100.0100, L500.4050 ####[facility] [address] [place], [address] Sodium [Moles/Vol] 135 mmol/L Normal 133-145 [facility] Comment on above: Performed By: #### L 100.0100, L500.4050 ####[facility] [address] [place], [address] T PROT 5.7 g/dL Low 5.9-8.4 [facility] Comment on above: Performed By: #### L 100.0100, L500.4050 ####[facility] [address] [place], [address] Urea nitrogen [Mass/Vol] 29 mg/dL High 4-19 [facility] Comment on above: Performed By: #### L 100.0100, L500.4050 ####[facility] [address] [place], [address] Culture, Blood (WB)on 2024 CUB Normal [facility] Comment on above: Performed By: #### M 200.1000 ####[facility] [address] [place], [address] Phosphoruson 05-07-2025 Phosphate [Mass/Vol] 4.1 mg/dL Normal 2.7-4.5 [facility] Comment on above: Performed By: #### L 500.3600, L501.2300 ####[facility] [address] [place], [address] Renal Profileon 05-07-2025 Albumin [Mass/Vol] 2.5 g/dL Low 3.5-5.0 [facility] Comment on above: Performed By: #### L 500.3600 ####[facility] [address] [place], [address] BUN/CRE 14.1 RATIO Normal 10-20 [facility] Comment on above: Performed By: #### L 500.3600 ####[facility] [address] [place], [address] Calcium [Mass/Vol] 7.7 mg/dL Normal 7.6-11.0 [facility] Comment on above: Performed By: #### L 500.3600 ####[facility] [address] [place], [address] Chloride [Moles/Vol] 104 mmol/L Normal 98-108 [facility] Comment on above: Performed By: #### L 500.3600 ####[facility] [address] [place], [address] CO2 [Moles/Vol] 21.8 mmol/L Normal 21.0-32.0 [facility] Comment on above: Performed By: #### L 500.3600 ####[facility] [address] [place], [address] Creatinine [Mass/Vol] 2.75 mg/dL High 0.70-1.20 [facility] Comment on above: Performed By: #### L 500.3600 ####[facility] [address] [place], [address] ECRCL 38.15 ml/min Low 50-250 [facility] Comment on above: Performed By: #### L 500.3600 ####[facility] [address] [place], [address] GAP 12 Normal 5-15 [facility] Comment on above: Performed By: #### L 500.3600 ####[facility] [address] [place], [address] GFR/1.73 sq M.predicted among non-blacks MDRD (S/P/Bld) [Vol rate/Area] 26 mL/min/{1.73_m2} Low >60 [facility] Comment on above: Result Comment: mL/m in/1.73m2 CKD-EPI Creatinine Equation (2020) Performed By: #### L 500.3600 ####[facility] [address] [place], [address] Glucose [Mass/Vol] 131 mg/dL High 70-99 [facility] Comment on above: Performed By: #### L 500.3600 ####[facility] [address] [place], [address] Phosphate [Mass/Vol] 4.8 mg/dL High 2.7-4.5 [facility] Comment on above: Performed By: #### L 500.3600 ####[facility] [address] [place], [address] Potassium [Moles/Vol] 4.0 mmol/L Normal 3.3-5.1 [facility] Comment on above: Performed By: #### L 500.3600 ####[facility] [address] [place], [address] Sodium [Moles/Vol] 138 mmol/L Normal 133-145 [facility] Comment on above: Performed By: #### L 500.3600 ####[facility] [address] [place], [address] Urea nitrogen [Mass/Vol] 39 mg/dL High 4-19 [facility] Comment on above: Performed By: #### L 500.3600 ####[facility] [address] [place], [address] Albumin [Mass/Vol] 2.5 g/dL Low 3.5-5.0 [facility] Comment on above: Performed By: #### L 500.3600 ####[facility] [address] [place], [address] BUN/CRE 13.2 RATIO Normal 10-20 [facility] Comment on above: Performed By: #### L 500.3600 ####[facility] [address] [place], [address] Calcium [Mass/Vol] 7.9 mg/dL Normal 7.6-11.0 [facility] Comment on above: Performed By: #### L 500.3600 ####[facility] [address] [place], [address] Chloride [Moles/Vol] 102 mmol/L Normal 98-108 [facility] Comment on above: Performed By: #### L 500.3600 ####[facility] [address] [place], [address] CO2 [Moles/Vol] 20.6 mmol/L Low 21.0-32.0 [facility] Comment on above: Performed By: #### L 500.3600 ####[facility] [address] [place], [address] Creatinine [Mass/Vol] 2.46 mg/dL High 0.70-1.20 [facility] Comment on above: Performed By: #### L 500.3600 ####[facility] [address] [place], [address] ECRCL 42.65 ml/min Low 50-250 [facility] Comment on above: Performed By: #### L 500.3600 ####[facility] [address] [place], [address] GAP 14 Normal 5-15 [facility] Comment on above: Performed By: #### L 500.3600 ####[facility] [address] [place], [address] GFR/1.73 sq M.predicted among non-blacks MDRD (S/P/Bld) [Vol rate/Area] 30 mL/min/{1.73_m2} Low >60 [facility] Comment on above: Result Comment: mL/m in/1.73m2 CKD-EPI Creatinine Equation (2020) Performed By: #### L 500.3600 ####[facility] [address] [place], [address] Glucose [Mass/Vol] 156 mg/dL High 70-99 [facility] Comment on above: Performed By: #### L 500.3600 ####[facility] [address] [place], [address] Phosphate [Mass/Vol] 5.0 mg/dL High 2.7-4.5 [facility] Comment on above: Performed By: #### L 500.3600 ####[facility] [address] [place], [address] Potassium [Moles/Vol] 4.1 mmol/L Normal 3.3-5.1 [facility] Comment on above: Performed By: #### L 500.3600 ####[facility] [address] [place], [address] Sodium [Moles/Vol] 136 mmol/L Normal 133-145 [facility] Comment on above: Performed By: #### L 500.3600 ####[facility] [address] [place], [address] Urea nitrogen [Mass/Vol] 33 mg/dL High 4-19 [facility] Comment on above: Performed By: #### L 500.3600 ####[facility] [address] [place], [address] ALB Normal 3.5-5.0 [facility] Comment on above: Performed By: #### L 500.3600, L501.2300 ####[facility] [address] [place], [address] BUN Normal 4-19 [facility] Comment on above: Performed By: #### L 500.3600, L501.2300 ####[facility] [address] [place], [address] BUN/CRE Normal 10-20 [facility] Comment on above: Performed By: #### L 500.3600, L501.2300 ####[facility] [address] [place], [address] Calcium Normal 7.6-11.0 [facility] Comment on above: Performed By: #### L 500.3600, L501.2300 ####[facility] [address] [place], [address] CL Normal 98-108 [facility] Comment on above: Performed By: #### L 500.3600, L501.2300 ####[facility] [address] [place], [place], [address] CO2 Normal 21.0-32.0 [facility] Comment on above: Performed By: #### L 500.3600, L501.2300 ####[facility] [address] [place], [address] CREAT,SERUM Normal 0.70-1.20 [facility] Comment on above: Performed By: #### L 500.3600, L501.2300 ####[facility] [address] [place], [address] ECRCL Normal 50-250 [facility] Comment on above: Performed By: #### L 500.3600, L501.2300 ####[facility] [address] [place], [address] eGFR Normal >60 [facility] Comment on above: Result Comment: mL/m in/1.73m2 CKD-EPI Creatinine Equation (2020) Performed By: #### L 500.3600, L501.2300 ####[facility] [address] [place], [address] GAP Normal 5-15 [facility] Comment on above: Performed By: #### L 500.3600, L501.2300 ####[facility] [address] [place], [address] GLU Normal 70-99 [facility] Comment on above: Performed By: #### L 500.3600, L501.2300 ####[facility] [address] [place], [address] Potassium Normal 3.3-5.1 [facility] Comment on above: Performed By: #### L 500.3600, L501.2300 ####[facility] [address] [place], [address] Renal Profile Normal 133-145 [facility] Comment on above: Performed By: #### L 500.3600, L501.2300 ####[facility] [address] [place], [address] Urine Cultureon 05-07-2025 URC Normal [facility] Comment on above: Performed By: #### M 100.2200 ####[facility] [address] [place], [address] Vancomycin, Trough Levelon 1 VANCO, TROUGH 18.8 ug/mL High 5.0-15.0 [facility] Comment on above: Order Comment: Comme nts: Trough to be drawn 30 mins prior to scheduled [id number] Result Comment: Mitesh mmended goal trough ranges [...] therapy recommended for serious lifethreatening infections include:- Irjenprjng-Zcmmoblifier-Xkpralxxp (Ventilator/Healtcare Associated)-SepsisPLEASE CONTACT PHARMACY SERVICES (#3908) FOR INTERPRETATIONOF RESULTS. Performed By: #### L 501.8820 ####[facility] [address] [place], [address] Basic Metabolic Profile (BMP )on 05-06-2025 BUN/CRE 13.5 RATIO Normal - [facility] Comment on above: Performed By: #### L 500.2500, L501.2300, L501.5200 ####[facility] [address] [place], [address] Calcium [Mass/Vol] 7.3 mg/dL Low 7.6-11.0 [facility] Comment on above: Performed By: #### L 500.2500, L501.2300, L501.5200 ####[facility] [address] [place], [address] Chloride [Moles/Vol] 103 mmol/L Normal 98-108 [facility] Comment on above: Performed By: #### L 500.2500, L501.2300, L501.5200 ####[facility] [address] [place], [address] CO2 [Moles/Vol] 19.4 mmol/L Low 21.0-32.0 [facility] Comment on above: Performed By: #### L 500.2500, L501.2300, L501.5200 ####[facility] [address] [place], [address] Creatinine [Mass/Vol] 2.72 mg/dL High 0.70-1.20 [facility] Comment on above: Performed By: #### L 500.2500, L501.2300, L501.5200 ####[facility] [address] [place], [address] ECRCL 38.79 ml/min Low 50-250 [facility] Comment on above: Performed By: #### L 500.2500, L501.2300, L501.5200 ####[facility] [address] [place], [address] GAP 11 Normal 5-15 [facility] Comment on above: Performed By: #### L 500.2500, L501.2300, L501.5200 ####[facility] [address] [place], [address] GFR/1.73 sq M.predicted among non-blacks MDRD (S/P/Bld) [Vol rate/Area] 26 mL/min/{1.73_m2} Low >60 [facility] Comment on above: Result Comment: mL/m in/1.73m2 CKD-EPI Creatinine Equation (2020) Performed By: #### L 500.2500, L501.2300, L501.5200 ####[facility] [address] [place], [address] Glucose [Mass/Vol] 189 mg/dL High 70-99 [facility] Comment on above: Performed By: #### L 500.2500, L501.2300, L501.5200 ####[facility] [address] [place], [address] Potassium [Moles/Vol] 3.4 mmol/L Normal 3.3-5.1 [facility] Comment on above: Performed By: #### L 500.2500, L501.2300, L501.5200 ####[facility] [address] [place], [address] Sodium [Moles/Vol] 133 mmol/L Normal 133-145 [facility] Comment on above: Performed By: #### L 500.2500, L501.2300, L501.5200 ####[facility] [address] [place], [address] Urea nitrogen [Mass/Vol] 37 mg/dL High 4-19 [facility] Comment on above: Performed By: #### L 500.2500, L501.2300, L501.5200 ####[facility] [address] [place], [address] Bedside Glucoseon 05-06-2025 FINGERSTICK GLU 104 mg/dL Normal 74-106 [facility] Comment on above: Result Comment: KIANA GEMENT OF PATIENT CARE PER NURSING PROTOCOL Performed By: #### L 501.080 ####[facility] [address] [place], [address] FINGERSTICK GLU 140 mg/dL High 74-106 [facility] Comment on above: Result Comment: KIANA GEMENT OF PATIENT CARE PER NURSING PROTOCOL Performed By: #### L 501.080 ####[facility] [address] [place], [address] FINGERSTICK GLU 136 mg/dL High 74-106 [facility] Comment on above: Result Comment: KIANA GEMENT OF PATIENT CARE PER NURSING PROTOCOL Performed By: #### L 501.080 ####[facility] [address] [place], [address] FINGERSTICK GLU 143 mg/dL High 74-106 [facility] Comment on above: Result Comment: KIANA GEMENT OF PATIENT CARE PER NURSING PROTOCOL Performed By: #### L 501.080 ####[facility] [address] [place], [address] FINGERSTICK GLU 149 mg/dL High 74-106 [facility] Comment on above: Result Comment: KIANA GEMENT OF PATIENT CARE PER NURSING PROTOCOL Performed By: #### L 501.080 ####[facility] [address] [place], [address] FINGERSTICK GLU 126 mg/dL High 74-106 [facility] Comment on above: Result Comment: KIANA GEMENT OF PATIENT CARE PER NURSING PROTOCOL Performed By: #### L 501.080 ####[facility] [address] [place], [address] FINGERSTICK GLU 123 mg/dL High 74-106 [facility] Comment on above: Result Comment: KIANA GEMENT OF PATIENT CARE PER NURSING PROTOCOL Performed By: #### L 501.080 ####[facility] [address] [place], [address] FINGERSTICK GLU 135 mg/dL High 74-106 [facility] Comment on above: Result Comment: KIANA GEMENT OF PATIENT CARE PER NURSING PROTOCOL Performed By: #### L 501.080 ####[facility] [address] [place], [address] FINGERSTICK GLU 113 mg/dL High 74-106 [facility] Comment on above: Result Comment: KIANA GEMENT OF PATIENT CARE PER NURSING PROTOCOL Performed By: #### L 501.080 ####[facility] [address] [place], [address] FINGERSTICK GLU 172 mg/dL High 74-106 [facility] Comment on above: Result Comment: KIANA GEMENT OF PATIENT CARE PER NURSING PROTOCOL Performed By: #### L 501.080 ####[facility] [address] [place], [address] FINGERSTICK GLU 148 mg/dL High 74-106 [facility] Comment on above: Result Comment: KIANA GEMENT OF PATIENT CARE PER NURSING PROTOCOL Performed By: #### L 501.080 ####[facility] [address] [place], [address] FINGERSTICK GLU 118 mg/dL High 74-106 [facility] Comment on above: Result Comment: KIANA GEMENT OF PATIENT CARE PER NURSING PROTOCOL Performed By: #### L 501.080 ####[facility] [address] [place], [address] FINGERSTICK GLU 53 mg/dL Low 74-106 [facility] Comment on above: Result Comment: KIANA GEMENT OF PATIENT CARE PER NURSING PROTOCOL Performed By: #### L 501.080 ####[facility] [address] [place], [address] FINGERSTICK GLU 116 mg/dL High 74-106 [facility] Comment on above: Result Comment: KIANA GEMENT OF PATIENT CARE PER NURSING PROTOCOL Performed By: #### L 501.080 ####[facility] [address] [place], [address] FINGERSTICK GLU 125 mg/dL High 74-106 [facility] Comment on above: Result Comment: KIANA GEMENT OF PATIENT CARE PER NURSING PROTOCOL Performed By: #### L 501.080 ####[facility] [address] [place], [address] FINGERSTICK GLU 127 mg/dL High 74-106 [facility] Comment on above: Result Comment: KIANA GEMENT OF PATIENT CARE PER NURSING PROTOCOL Performed By: #### L 501.080 ####[facility] [address] [place], [address] FINGERSTICK GLU 83 mg/dL Normal 74-106 [facility] Comment on above: Result Comment: KIANA GEMENT OF PATIENT CARE PER NURSING PROTOCOL Performed By: #### L 501.080 ####[facility] [address] [place], [address] FINGERSTICK GLU 115 mg/dL High 74-106 [facility] Comment on above: Result Comment: KIANA GEMENT OF PATIENT CARE PER NURSING PROTOCOL Performed By: #### L 501.080 ####[facility] [address] [place], [address] FINGERSTICK GLU 90 mg/dL Normal 74-106 [facility] Comment on above: Result Comment: KIANA GEMENT OF PATIENT CARE PER NURSING PROTOCOL Performed By: #### L 501.080 ####[facility] [address] [place], [address] FINGERSTICK GLU 120 mg/dL High 74-106 [facility] Comment on above: Result Comment: KIANA GEMENT OF PATIENT CARE PER NURSING PROTOCOL Performed By: #### L 501.080 ####[facility] [address] [place], [address] FINGERSTICK GLU 72 mg/dL Low 74-106 [facility] Comment on above: Result Comment: KIANA GEMENT OF PATIENT CARE PER NURSING PROTOCOL Performed By: #### L 501.080 ####[facility] [address] [place], [address] FINGERSTICK GLU 153 mg/dL High 74-106 [facility] Comment on above: Result Comment: KIANA GEMENT OF PATIENT CARE PER NURSING PROTOCOL Performed By: #### L 501.080 ####[facility] [address] [place], [address] Blood Gases by [facility] 025 BRADLY TEST N/A Normal [facility] Comment on above: Performed By: #### L 9000.0800 ####[facility] [address] [place], [address] Base excess Calc (Bld) [Moles/Vol] -2 mmol/L Normal -2 to +2 [facility] Comment on above: Performed By: #### L 9000.0800 ####[facility] [address] [place], [address] Blood Gas Type ART Normal [facility] Comment on above: Performed By: #### L 8999.08 ####[facility] [address] [place], [address] CO2 [Moles/Vol] 24 mmol/L Normal [facility] Comment on above: Performed By: #### L 8999.0800 ####[facility] [address] [place], [address] FI02 21.0 Normal [facility] Comment on above: Performed By: #### L 8999.08 ####[facility] [address] [place], [address] HCO3 (Bld) [Moles/Vol] 22.6 mmol/L Normal 22-[address] [facility] Comment on above: Performed By: #### L 8999.08 ####[facility] [address] [place], [address] Mode AC Normal [facility] Comment on above: Performed By: #### L 8999.08 ####[facility] [address] [place], [address] O2 Delivery Dev Adult Vent Normal [facility] Comment on above: Performed By: #### L 8999.0800 ####[facility] [address] [place], [address] pCO2 33.2 mmHg Low 35-45 [facility] Comment on above: Performed By: #### L 8999.08 ####[facility] [address] [place], [address] PEEP 5 Normal [facility] Comment on above: Performed By: #### L 8999.0800 ####[facility] [address] [place], [address] pH (Bld) 7.44 [pH] Normal 7.35-7.45 [facility] Comment on above: Performed By: #### L 9000.0800 ####[facility] [address] [place], [address] PO2 53 mmHG Low 75-100 [facility] Comment on above: Performed By: #### L 9000.0800 ####[facility] [address] [place], [address] RR 18 Normal [facility] Comment on above: Performed By: #### L 9000.0800 ####[facility] [address] [place], [address] SITE L Radial Normal [facility] Comment on above: Performed By: #### L 9000.0800 ####[facility] [address] [place], [address] SO2 88 Low 95-99 [facility] Comment on above: Performed By: #### L 9000.0800 ####[facility] [address] [place], [address] Vt 600.0 mL Normal [facility] Comment on above: Performed By: #### L 9000.0800 ####[facility] [address] [place], [address] CBC W/Diff, Automatedon 04-26 Absolute Lymph 0.80 X10 3/uL Low 0.83-4.51 [facility] Comment on above: Performed By: #### L 100.0100 ####[facility] [address] [place], [address] Absolute Neut 17.3 X10 3/uL High 2.0-7.7 [facility] Comment on above: Performed By: #### L 100.0100 ####[facility] [address] [place], [address] Basophils/100 WBC (Bld) 0.2 % Normal 0-[address] [facility] Comment on above: Performed By: #### L 100.0100 ####[facility] [address] [place], [address] Eosinophils/100 WBC (Bld) 0.2 % Normal 0-5 [facility] Comment on above: Performed By: #### L 100.0100 ####[facility] [address] [place], [address] Erythrocyte distribution width (RBC) [Ratio] 15.6 % High 11.6-14.6 [facility] Comment on above: Performed By: #### L 100.0100 ####[facility] [address] [place], [address] Hematocrit (Bld) [Volume fraction] 27.3 % Low 40-54 [facility] Comment on above: Performed By: #### L 100.0100 ####[facility] [address] [place], [address] Hemoglobin (Bld) [Mass/Vol] 10.1 g/dL Low 13.0-16.5 [facility] Comment on above: Performed By: #### L 100.0100 ####[facility] [address] [place], [address] IG% 3.400 High 0.0-0.9 [facility] Comment on above: Result Comment: IG% - Immature Granulocytes (promyelocytes, myelocytes andmetamyelocytes) > 1% indicates that a LEFT SHIFT is Present. Performed By: #### L 100.0100 ####[facility] [address] [place], [address] Lymphocytes/100 WBC (Bld) 4.0 % Low 19-41 [facility] Comment on above: Performed By: #### L 100.0100 ####[facility] [address] [place], [address] MCH (RBC) [Entitic mass] 28.1 pg Normal 27.0-32.0 [facility] Comment on above: Performed By: #### L 100.0100 ####[facility] [address] [place], [address] MCHC (RBC) [Mass/Vol] 37.0 g/dL High 32-36 [facility] Comment on above: Performed By: #### L 100.0100 ####[facility] [address] [place], [address] MCV (RBC) [Entitic vol] 76.0 fL Low 80-[address] [facility] Comment on above: Performed By: #### L 100.0100 ####[facility] [address] [place], [address] Monocytes/100 WBC (Bld) 4.9 % Normal 0-10 [facility] Comment on above: Performed By: #### L 100.0100 ####[facility] [address] [place], [address] Neutrophils/100 WBC (Bld) 87.3 % High 47-70 [facility] Comment on above: Performed By: #### L 100.0100 ####[facility] [address] [place], [address] Nucleated RBC (Bld) [#/Vol] 0 10*3/uL Normal 0-5 [facility] Comment on above: Performed By: #### L 100.0100 ####[facility] [address] [place], [address] Platelet mean volume (Bld) [Entitic vol] 10.9 fL Normal 6.2-12.0 [facility] Comment on above: Performed By: #### L 100.0100 ####[facility] [address] [place], [address] Platelets (Bld) [#/Vol] 136 10*3/uL Low 150-450 [facility] Comment on above: Performed By: #### L 100.0100 ####[facility] [address] [place], [address] RBC (Bld) [#/Vol] 3.59 10*6/uL Low 4.6-6.2 [facility] Comment on above: Performed By: #### L 100.0100 ####[facility] [address] [place], [address] RDW SD 43.3 fl Normal 35.1-43.9 [facility] Comment on above: Performed By: #### L 100.0100 ####[facility] [address] [place], [address] WBC (Bld) [#/Vol] 19.8 10*3/uL High 4.4-11.0 [facility] Comment on above: Performed By: #### L 100.0100 ####[facility] [address] [place], [address] Chest 1 View (Portable)on Chest 1 View (Portable) Normal [facility] Electrolyte Panelon 05-06-20 25 Chloride [Moles/Vol] 105 mmol/L Normal 98-108 [facility] Comment on above: Performed By: #### L 501.5200, L501.5294, L501.2300 ####[facility] [address] [place], [address] CO2 [Moles/Vol] 21.0 mmol/L Normal 21.0-32.0 [facility] Comment on above: Performed By: #### L 501.5200, L501.5294, L501.2300 ####[facility] [address] [place], [address] GAP 10 Normal 5-15 [facility] Comment on above: Performed By: #### L 501.5200, L501.5294, L501.2300 ####[facility] [address] [place], [address] Potassium [Moles/Vol] 3.4 mmol/L Normal 3.3-5.1 [facility] Comment on above: Performed By: #### L 501.5200, L501.5294, L501.2300 ####[facility] [address] [place], [address] Sodium [Moles/Vol] 136 mmol/L Normal 133-145 [facility] Comment on above: Performed By: #### L 501.5200, L501.5294, L501.2300 ####[facility] [address] [place], [address] Chloride [Moles/Vol] 105 mmol/L Normal 98-108 [facility] Comment on above: Performed By: #### L 501.2300, L501.5200, L501.5294 ####[facility] [address] [place], [address] CO2 [Moles/Vol] 21.0 mmol/L Normal 21.0-32.0 [facility] Comment on above: Performed By: #### L 501.2300, L501.5200, L501.5294 ####[facility] [address] [place], [address] GAP 10 Normal 5-15 [facility] Comment on above: Performed By: #### L 501.2300, L501.5200, L501.5294 ####[facility] [address] [place], [address] Potassium [Moles/Vol] 3.4 mmol/L Normal 3.3-5.1 [facility] Comment on above: Performed By: #### L 501.2300, L501.5200, L501.5294 ####[facility] [address] [place], [address] Sodium [Moles/Vol] 135 mmol/L Normal 133-145 [facility] Comment on above: Performed By: #### L 501.2300, L501.5200, L501.5294 ####[facility] [address] [place], [address] Chloride [Moles/Vol] 103 mmol/L Normal 98-108 [facility] Comment on above: Performed By: #### L 501.5294, L501.2300, L501.5200 ####[facility] [address] [place], [address] CO2 [Moles/Vol] 20.2 mmol/L Low 21.0-32.0 [facility] Comment on above: Performed By: #### L 501.5294, L501.2300, L501.5200 ####[facility] [address] [place], [address] GAP 10 Normal 5-15 [facility] Comment on above: Performed By: #### L 501.5294, L501.2300, L501.5200 ####[facility] [address] [place], [address] Potassium [Moles/Vol] 3.2 mmol/L Low 3.3-5.1 [facility] Comment on above: Performed By: #### L 501.5294, L501.2300, L501.5200 ####[facility] [address] [place], [address] Sodium [Moles/Vol] 134 mmol/L Normal 133-145 [facility] Comment on above: Performed By: #### L 501.5294, L501.2300, L501.5200 ####[facility] [address] [place], [address] Chloride [Moles/Vol] 103 mmol/L Normal 98-108 [facility] Comment on above: Performed By: #### L 501.5200, L501.5294, L501.2300 ####[facility] [address] [place], [address] CO2 [Moles/Vol] 18.6 mmol/L Low 21.0-32.0 [facility] Comment on above: Performed By: #### L 501.5200, L501.5294, L501.2300 ####[facility] [address] [place], [address] GAP 12 Normal 5-15 [facility] Comment on above: Performed By: #### L 501.5200, L501.5294, L501.2300 ####[facility] [address] [place], [address] Potassium [Moles/Vol] 3.2 mmol/L Low 3.3-5.1 [facility] Comment on above: Performed By: #### L 501.5200, L501.5294, L501.2300 ####[facility] [address] [place], [address] Sodium [Moles/Vol] 134 mmol/L Normal 133-145 [facility] Comment on above: Performed By: #### L 501.5200, L501.5294, L501.2300 ####[facility] [address] [place], [address] Magnesiumon 05-06-2025 Magnesium [Mass/Vol] 2.3 mg/dL High 1.5-2.2 [facility] Comment on above: Performed By: #### L 501.5200, L501.5294, L501.2300 ####[facility] [address] [place], [address] Magnesium [Mass/Vol] 2.2 mg/dL Normal 1.5-2.2 [facility] Comment on above: Performed By: #### L 501.2300, L501.5200, L501.5294 ####[facility] [address] [place], [address] Magnesium [Mass/Vol] 2.1 mg/dL Normal 1.5-2.2 [facility] Comment on above: Performed By: #### L 500.2500, L501.2300, L501.5200 ####[facility] [address] [place], [address] Magnesium [Mass/Vol] 2.1 mg/dL Normal 1.5-2.2 [facility] Comment on above: Performed By: #### L 501.5294, L501.2300, L501.5200 ####[facility] [address] [place], [address] Magnesium [Mass/Vol] 2.1 mg/dL Normal 1.5-2.2 [facility] Comment on above: Performed By: #### L 501.5200, L501.5294, L501.2300 ####[facility] [address] [place], [address] Phosphoruson 05-06-2025 Phosphate [Mass/Vol] 3.0 mg/dL Normal 2.7-4.5 [facility] Comment on above: Performed By: #### L 501.5200, L501.5294, L501.2300 ####[facility] [address] [place], [address] Phosphate [Mass/Vol] 3.3 mg/dL Normal 2.7-4.5 [facility] Comment on above: Performed By: #### L 501.2300, L501.5200, L501.5294 ####[facility] [address] [place], [address] Phosphate [Mass/Vol] 2.8 mg/dL Normal 2.7-4.5 [facility] Comment on above: Performed By: #### L 500.2500, L501.2300, L501.5200 ####[facility] [address] [place], [address] Phosphate [Mass/Vol] 2.5 mg/dL Low 2.7-4.5 [facility] Comment on above: Performed By: #### L 501.5294, L501.2300, L501.5200 ####[facility] [address] [place], [address] Phosphate [Mass/Vol] 2.8 mg/dL Normal 2.7-4.5 [facility] Comment on above: Performed By: #### L 501.5200, L501.5294, L501.2300 ####[facility] [address] [place], [address] Respiratory Cultureon 2024 RESPC Normal [facility] Comment on above: Performed By: #### M 100.2400, M100.2000 ####[facility] [address] [place], [address] Vancomycin, Trough Levelon 1 VANCO, TROUGH 16.7 ug/mL High 5.0-15.0 [facility] Comment on above: Order Comment: Comme nts: DRAW 30 MIN PRIOR TO [id number] Result Comment: Mitesh mmended goal trough ranges [...] therapy recommended for serious lifethreatening infections include:- Rjrlfcrdrs-Pvkngsphrldu-Plhszuxky (Ventilator/Healtcare Associated)-SepsisPLEASE CONTACT PHARMACY SERVICES (#2192) FOR INTERPRETATIONOF RESULTS. Performed By: #### L 501.8820 ####[facility] [address] [place], [address] Basic Metabolic Profile (BMP )on 05-05-2025 BUN/CRE 18.7 RATIO Normal 05-15 [facility] Comment on above: Performed By: #### L 500.2500, L501.5200, L500.3600 ####[facility] [address] [place], [address] Calcium [Mass/Vol] 6.9 mg/dL Low 7.6-11.0 [facility] Comment on above: Performed By: #### L 500.2500, L501.5200, L500.3600 ####[facility] [address] [place], [address] CO2 [Moles/Vol] 8.8 mmol/L Invalid Interpretation Code 21.0-32.0 [facility] Comment on above: Result Comment: Crit ical Result(s) Called at:04:00 05-05-25 to Barbara Ruby: Paz Canseco??Results read back by same. Performed By: #### L 500.2500, L501.5200, L500.3600 ####[facility] [address] [place], [address] Creatinine [Mass/Vol] 4.60 mg/dL High 0.70-1.20 [facility] Comment on above: Performed By: #### L 500.2500, L501.5200, L500.3600 ####[facility] [address] [place], [address] ECRCL 22.74 ml/min Low 50-250 [facility] Comment on above: Performed By: #### L 500.2500, L501.5200, L500.3600 ####[facility] [address] [place], [address] GAP 24 High 5-15 [facility] Comment on above: Performed By: #### L 500.2500, L501.5200, L500.3600 ####[facility] [address] [place], [address] GFR/1.73 sq M.predicted among non-blacks MDRD (S/P/Bld) [Vol rate/Area] 14 mL/min/{1.73_m2} Low >60 [facility] Comment on above: Result Comment: mL/m in/1.73m2 CKD-EPI Creatinine Equation (2020) Performed By: #### L 500.2500, L501.5200, L500.3600 ####[facility] [address] [place], [address] Glucose [Mass/Vol] 223 mg/dL High 70-99 [facility] Comment on above: Performed By: #### L 500.2500, L501.5200, L500.3600 ####[facility] [address] [place], [address] Potassium [Moles/Vol] 3.9 mmol/L Normal 3.3-5.1 [facility] Comment on above: Performed By: #### L 500.2500, L501.5200, L500.3600 ####[facility] [address] [place], [address] Sodium [Moles/Vol] 134 mmol/L Normal 133-145 [facility] Comment on above: Performed By: #### L 500.2500, L501.5200, L500.3600 ####[facility] [address] [place], [address] Urea nitrogen [Mass/Vol] 86 mg/dL High 4-19 [facility] Comment on above: Performed By: #### L 500.2500, L501.5200, L500.3600 ####[facility] [address] [place], [address] CO2 [Moles/Vol] 5.9 mmol/L Invalid Interpretation Code 21.0-32.0 [facility] Comment on above: Result Comment: Crit ical Result(s) Called at:00:05-05-25 TO ADELAIDA Arnold: PAZ CANSECO??Results read back by same.Critical Result(s) Called at: 00:05-05-25 TO ADELAIDA Arnold: PAZ CANSECO ??Results read back by same. AMENDED REPORT 05/05/2534 CO2 previously reported as: 6.8 *L mmol/LCritical Result(s) Called at:00:05-05-25 TO ADELAIDA Arnold: PAZ CANSECO??Results read back by same. Performed By: #### L 500.2500, L501.9520, L501.5200 ####[facility] [address] [place], [address] GAP 23 High 5-15 [facility] Comment on above: Result Comment: AMENDED REPORT 05/05/2534 GAP previously reported as: 22 H Performed By: #### L 500.2500, L501.9520, L501.5200 ####[facility] [address] [place], [address] Bedside Glucoseon 05-05-2025 FINGERSTICK GLU 110 mg/dL High 74-106 [facility] Comment on above: Result Comment: KIANA GEMENT OF PATIENT CARE PER NURSING PROTOCOL Performed By: #### L 501.080 ####[facility] [address] [place], [address] FINGERSTICK GLU 120 mg/dL High 74-106 [facility] Comment on above: Result Comment: KIANA GEMENT OF PATIENT CARE PER NURSING PROTOCOL Performed By: #### L 501.080 ####[facility] [address] [place], [address] FINGERSTICK GLU 143 mg/dL High 74-106 [facility] Comment on above: Result Comment: KIANA GEMENT OF PATIENT CARE PER NURSING PROTOCOL Performed By: #### L 501.080 ####[facility] [address] [place], [address] FINGERSTICK GLU 114 mg/dL High 74-106 [facility] Comment on above: Result Comment: KIANA GEMENT OF PATIENT CARE PER NURSING PROTOCOL Performed By: #### L 501.080 ####[facility] [address] [place], [address] FINGERSTICK GLU 146 mg/dL High 74-106 [facility] Comment on above: Result Comment: KIANA GEMENT OF PATIENT CARE PER NURSING PROTOCOL Performed By: #### L 501.080 ####[facility] [address] [place], [address] FINGERSTICK GLU 151 mg/dL High 74-106 [facility] Comment on above: Result Comment: KIANA GEMENT OF PATIENT CARE PER NURSING PROTOCOL Performed By: #### L 501.080 ####[facility] [address] [place], [address] FINGERSTICK GLU 140 mg/dL High 74-106 [facility] Comment on above: Result Comment: KIANA GEMENT OF PATIENT CARE PER NURSING PROTOCOL Performed By: #### L 501.080 ####[facility] [address] [place], [address] FINGERSTICK GLU 172 mg/dL High 74-106 [facility] Comment on above: Result Comment: KIANA GEMENT OF PATIENT CARE PER NURSING PROTOCOL Performed By: #### L 501.080 ####[facility] [address] [place], [address] Beta-Hydroxbytyrateon 2024 BETA-HYDROXYBUT 1.7 mmol/L High 0.0-0.3 [facility] Comment on above: Order Comment: Comme nts: please add onto 829 blood draw Performed By: #### L 501.6908 ####[facility] [address] [place], [address] Blood Gases by CPSon 025 Base excess Calc (Bld) [Moles/Vol] -7 mmol/L Low -2 to +2 [facility] Comment on above: Performed By: #### L 9000.0800 ####[facility] [address] [place], [address] CO2 [Moles/Vol] 20 mmol/L Normal [facility] Comment on above: Performed By: #### L 9000.0800 ####[facility] [address] [place], [address] HCO3 (Bld) [Moles/Vol] 18.7 mmol/L Low 22-[address] [facility] Comment on above: Performed By: #### L 9000.0800 ####[facility] [address] [place], [address] pCO2 34.5 mmHg Low 35-45 [facility] Comment on above: Performed By: #### L 9000.0800 ####[facility] [address] [place], [address] pH (Bld) 7.34 [pH] Low 7.35-7.45 [facility] Comment on above: Performed By: #### L 9000.0800 ####[facility] [address] [place], [address] PO2 88 mmHG Normal 75-100 [facility] Comment on above: Performed By: #### L 9000.0800 ####[facility] [address] [place], [address] RR 18 Normal [facility] Comment on above: Performed By: #### L 9000.0800 ####[facility] [address] [place], [address] SO2 96 Normal 95-99 [facility] Comment on above: Performed By: #### L 9000.0800 ####[facility] [address] [place], [address] BRADLY TEST Positive Normal [facility] Comment on above: Performed By: #### L 9000.0800 ####[facility] [address] [place], [address] Base excess Calc (Bld) [Moles/Vol] -13 mmol/L Low -2 to +2 [facility] Comment on above: Performed By: #### L 9000.0800 ####[facility] [address] [place], [address] Blood Gas Type ART Normal [facility] Comment on above: Performed By: #### L 9000.0800 ####[facility] [address] [place], [address] CO2 [Moles/Vol] 14 mmol/L Normal [facility] Comment on above: Performed By: #### L 9000.0800 ####[facility] [address] [place], [address] FI02 30.0 Normal [facility] Comment on above: Performed By: #### L 9000.0800 ####[facility] [address] [place], [address] HCO3 (Bld) [Moles/Vol] 13.2 mmol/L Low 22-[address] [facility] Comment on above: Performed By: #### L 9000.0800 ####[facility] [address] [place], [address] Mode AC Normal [facility] Comment on above: Performed By: #### L 9000.0800 ####[facility] [address] [place], [address] O2 Delivery Dev Adult Vent Normal [facility] Comment on above: Performed By: #### L 9000.0800 ####[facility] [address] [place], [address] pCO2 25.1 mmHg Low 35-45 [facility] Comment on above: Performed By: #### L 9000.0800 ####[facility] [address] [place], [address] PEEP 5 Normal [facility] Comment on above: Performed By: #### L 9000.0800 ####[facility] [address] [place], [address] pH (Bld) 7.33 [pH] Low 7.35-7.45 [facility] Comment on above: Performed By: #### L 9000.0800 ####[facility] [address] [place], [address] PO2 91 mmHG Normal 75-100 [facility] Comment on above: Performed By: #### L 9000.0800 ####[facility] [address] [place], [address] RR 24 Normal [facility] Comment on above: Performed By: #### L 9000.0800 ####[facility] [address] [place], [address] SITE L Radial Normal [facility] Comment on above: Performed By: #### L 9000.0800 ####[facility] [address] [place], [address] SO2 97 Normal 95-99 [facility] Comment on above: Performed By: #### L 0.0800 ####[facility] [address] [place], [address] Vt 600.0 mL Normal [facility] Comment on above: Performed By: #### L 0.08 ####[facility] [address] [place], [address] BRADLY TEST N/A Normal [facility] Comment on above: Performed By: #### L 0.0800 ####[facility] [address] [place], [address] Base excess Calc (Bld) [Moles/Vol] -22 mmol/L Low -2 to +2 [facility] Comment on above: Performed By: #### L 0.0800 ####[facility] [address] [place], [address] Blood Gas Type ART Normal [facility] Comment on above: Performed By: #### L 0.0800 ####[facility] [address] [place], [address] CO2 [Moles/Vol] 8 mmol/L [facility] Comment on above: Performed By: #### L 0.0800 ####[facility] [address] [place], [address] FI02 50.0 [facility] Comment on above: Performed By: #### L 0.0800 ####[facility] [address] [place], [address] HCO3 (Bld) [Moles/Vol] 7.0 mmol/L Low 22-26 [facility] Comment on above: Performed By: #### L 0.0800 ####[facility] [address] [place], [address] Mode AC Normal [facility] Comment on above: Performed By: #### L 9000.0800 ####[facility] [address] [place], [address] O2 Delivery Dev Adult Vent Normal [facility] Comment on above: Performed By: #### L 9000.0800 ####[facility] [address] [place], [address] pCO2 21.0 mmHg Low 35-45 [facility] Comment on above: Performed By: #### L 9000.0800 ####[facility] [address] [place], [address] PEEP 5 Normal [facility] Comment on above: Performed By: #### L 9000.0800 ####[facility] [address] [place], [address] pH (Bld) 7.13 [pH] Invalid Interpretation Code 7.35-7.45 [facility] Comment on above: Performed By: #### L 0.0800 ####[facility] [address] [place], [address] PO2 105 mmHG High 75-100 [facility] Comment on above: Performed By: #### L 0.0800 ####[facility] [address] [place], [address] Read Back By Yes Normal [facility] Comment on above: Performed By: #### L 0.0800 ####[facility] [address] [place], [address] Results To Tele physician Normal [facility] Comment on above: Performed By: #### L 8999.0800 ####[facility] [address] [place], [address] RR 24 Normal [facility] Comment on above: Performed By: #### L 0.0800 ####[facility] [address] [place], [address] SITE L Radial Normal [facility] Comment on above: Performed By: #### L 9000.0800 ####[facility] [address] [place], [address] SO2 96 Normal 95-99 [facility] Comment on above: Performed By: #### L 9000.0800 ####[facility] [address] [place], [address] Time Given 01:10:28 Normal [facility] Comment on above: Performed By: #### L 9000.0800 ####[facility] [address] [place], [address] Vt 600.0 mL Normal [facility] Comment on above: Performed By: #### L 9000.0800 ####[facility] [address] [place], [address] CBC-Complete Blood Cnt No Di ffon 05-05-2025 Erythrocyte distribution width (RBC) [Ratio] 15.8 % High 11.6-14.6 [facility] Comment on above: Performed By: #### L 100.0500 ####[facility] [address] [place], [address] Hematocrit (Bld) [Volume fraction] 30.8 % Low 40-54 [facility] Comment on above: Performed By: #### L 100.0500 ####[facility] [address] [place], [address] Hemoglobin (Bld) [Mass/Vol] 10.8 g/dL Low 13.0-16.5 [facility] Comment on above: Performed By: #### L 100.0500 ####[facility] [address] [place], [address] MCH (RBC) [Entitic mass] 27.5 pg Normal 27.0-32.0 [facility] Comment on above: Performed By: #### L 100.0500 ####[facility] [address] [place], [address] MCHC (RBC) [Mass/Vol] 35.1 g/dL Normal 32-36 [facility] Comment on above: Performed By: #### L 100.0500 ####[facility] [address] [place], [address] MCV (RBC) [Entitic vol] 78.4 fL Low 80-[address] [facility] Comment on above: Performed By: #### L 100.0500 ####[facility] [address] [place], [address] Platelet mean volume (Bld) [Entitic vol] 10.7 fL Normal 6.2-12.0 [facility] Comment on above: Performed By: #### L 100.0500 ####[facility] [address] [place], [address] Platelets (Bld) [#/Vol] 221 10*3/uL Normal 150-450 [facility] Comment on above: Performed By: #### L 100.0500 ####[facility] [address] [place], [address] RBC (Bld) [#/Vol] 3.93 10*6/uL Low 4.6-6.2 [facility] Comment on above: Performed By: #### L 100.0500 ####[facility] [address] [place], [address] RDW SD 45.2 fl High 35.1-43.9 [facility] Comment on above: Performed By: #### L 100.0500 ####[facility] [address] [place], [address] WBC (Bld) [#/Vol] 20.7 10*3/uL High 4.4-11.0 [facility] Comment on above: Performed By: #### L 100.0500 ####[facility] [address] [place], [address] Consultation - Nephrologyon 05-05-2025 Consultation - Nephrology Normal [facility] Electrolyte Panelon 05-05-20 25 Chloride [Moles/Vol] 104 mmol/L Normal 98-108 [facility] Comment on above: Performed By: #### L 501.5200, L501.2300, L501.5294 ####[facility] [address] [place], [address] CO2 [Moles/Vol] 18.3 mmol/L Low 21.0-32.0 [facility] Comment on above: Performed By: #### L 501.5200, L501.2300, L501.5294 ####[facility] [address] [place], [address] GAP 13 Normal 5-15 [facility] Comment on above: Performed By: #### L 501.5200, L501.2300, L501.5294 ####[facility] [address] [place], [address] Potassium [Moles/Vol] 3.2 mmol/L Low 3.3-5.1 [facility] Comment on above: Performed By: #### L 501.5200, L501.2300, L501.5294 ####[facility] [address] [place], [address] Sodium [Moles/Vol] 135 mmol/L Normal 133-145 [facility] Comment on above: Performed By: #### L 501.5200, L501.2300, L501.5294 ####[facility] [address] [place], [address] Chloride [Moles/Vol] 104 mmol/L Normal 98-108 [facility] Comment on above: Performed By: #### L 501.5200, L501.5294, L501.2300 ####[facility] [address] [place], [address] CO2 [Moles/Vol] 17.3 mmol/L Low 21.0-32.0 [facility] Comment on above: Performed By: #### L 501.5200, L501.5294, L501.2300 ####[facility] [address] [place], [address] GAP 15 Normal 5-15 [facility] Comment on above: Performed By: #### L 501.5200, L501.5294, L501.2300 ####[facility] [address] [place], [address] Potassium [Moles/Vol] 3.2 mmol/L Low 3.3-5.1 [facility] Comment on above: Performed By: #### L 501.5200, L501.5294, L501.2300 ####[facility] [address] [place], [address] Sodium [Moles/Vol] 136 mmol/L Normal 133-145 [facility] Comment on above: Performed By: #### L 501.5200, L501.5294, L501.2300 ####[facility] [address] [place], [address] Lactic Acidon 05-05-2025 Lactate [Moles/Vol] mmol/L Normal 0.0-2.0 [facility] Comment on above: Order Comment: Y Performed By: #### L 503.6005 ####[facility] [address] [place], [address] Magnesiumon 05-05-2025 Magnesium [Mass/Vol] 2.4 mg/dL High 1.5-2.2 [facility] Comment on above: Performed By: #### L 501.5200, L501.2300, L501.5294 ####[facility] [address] [place], [address] Magnesium [Mass/Vol] 2.3 mg/dL High 1.5-2.2 [facility] Comment on above: Performed By: #### L 501.5200, L501.5294, L501.2300 ####[facility] [address] [place], [address] Magnesium [Mass/Vol] 2.4 mg/dL High 1.5-2.2 [facility] Comment on above: Performed By: #### L 501.5200, L500.3600 ####[facility] [address] [place], [address] Magnesium [Mass/Vol] 2.5 mg/dL High 1.5-2.2 [facility] Comment on above: Performed By: #### L 501.5200, L500.3600 ####[facility] [address] [place], [address] Magnesium [Mass/Vol] 2.6 mg/dL High 1.5-2.2 [facility] Comment on above: Performed By: #### L 500.2500, L501.5200, L500.3600 ####[facility] [address] [place], [address] Magnesium [Mass/Vol] 3.0 mg/dL High 1.5-2.2 [facility] Comment on above: Performed By: #### L 500.2500, L501.9520, L501.5200 ####[facility] [address] [place], [address] Osmolality, Serumon 10-10-20 25 OSMOLALITY,SER 320 mOsm/KG High 275-295 [facility] Comment on above: Performed By: #### L 501.2300, L505.5000, L501.7300 ####[facility] [address] [place], [address] Phosphoruson 05-05-2025 Phosphate [Mass/Vol] 3.6 mg/dL Normal 2.7-4.5 [facility] Comment on above: Performed By: #### L 501.5200, L501.2300, L501.5294 ####[facility] [address] [place], [address] Phosphate [Mass/Vol] 4.6 mg/dL High 2.7-4.5 [facility] Comment on above: Performed By: #### L 501.5200, L501.5294, L501.2300 ####[facility] [address] [place], [address] Phosphate [Mass/Vol] 5.3 mg/dL High 2.7-4.5 [facility] Comment on above: Performed By: #### L 501.2300 ####[facility] [address] [place], [address] Phosphate [Mass/Vol] 8.2 mg/dL High 2.7-4.5 [facility] Comment on above: Performed By: #### L 501.2300, L505.5000, L501.7300 ####[facility] [address] [place], [address] Procedure Reporton Procedure Report Normal [facility] Renal Profileon 05-05-2025 Albumin [Mass/Vol] 2.6 g/dL Low 3.5-5.0 [facility] Comment on above: Performed By: #### L 501.5200, L500.3600 ####[facility] [address] [place], [address] BUN/CRE 17.1 RATIO Normal 10-20 [facility] Comment on above: Performed By: #### L 501.5200, L500.3600 ####[facility] [address] [place], [address] Calcium [Mass/Vol] 7.2 mg/dL Low 7.6-11.0 [facility] Comment on above: Performed By: #### L 501.5200, L500.3600 ####[facility] [address] [place], [address] Chloride [Moles/Vol] 103 mmol/L Normal 98-108 [facility] Comment on above: Performed By: #### L 501.5200, L500.3600 ####[facility] [address] [place], [address] CO2 [Moles/Vol] 15.7 mmol/L Low 21.0-32.0 [facility] Comment on above: Performed By: #### L 501.5200, L500.3600 ####[facility] [address] [place], [address] Creatinine [Mass/Vol] 3.85 mg/dL High 0.70-1.20 [facility] Comment on above: Performed By: #### L 501.5200, L500.3600 ####[facility] [address] [place], [address] ECRCL 27.27 ml/min Low 50-250 [facility] Comment on above: Performed By: #### L 501.5200, L500.3600 ####[facility] [address] [place], [address] GAP 17 High 5-15 [facility] Comment on above: Performed By: #### L 501.5200, L500.3600 ####[facility] [address] [place], [address] GFR/1.73 sq M.predicted among non-blacks MDRD (S/P/Bld) [Vol rate/Area] 17 mL/min/{1.73_m2} Low >60 [facility] Comment on above: Result Comment: mL/m in/1.73m2 CKD-EPI Creatinine Equation (2020) Performed By: #### L 501.5200, L500.3600 ####[facility] [address] [place], [address] Glucose [Mass/Vol] 192 mg/dL High 70-99 [facility] Comment on above: Performed By: #### L 501.5200, L500.3600 ####[facility] [address] [place], [address] Phosphate [Mass/Vol] 5.4 mg/dL High 2.7-4.5 [facility] Comment on above: Performed By: #### L 501.5200, L500.3600 ####[facility] [address] [place], [address] Potassium [Moles/Vol] 3.2 mmol/L Low 3.3-5.1 [facility] Comment on above: Performed By: #### L 501.5200, L500.3600 ####[facility] [address] [place], [address] Sodium [Moles/Vol] 136 mmol/L Normal 133-145 [facility] Comment on above: Performed By: #### L 501.5200, L500.3600 ####[facility] [address] [place], [address] Urea nitrogen [Mass/Vol] 66 mg/dL High 4-19 [facility] Comment on above: Performed By: #### L 501.5200, L500.3600 ####[facility] [address] [place], [address] Albumin [Mass/Vol] 2.6 g/dL Low 3.5-5.0 [facility] Comment on above: Performed By: #### L 501.5200, L500.3600 ####[facility] [address] [place], [address] Performed By: #### L 500.2500, L501.5200, L500.3600 ####[facility] [address] [place], [address] BUN/CRE 18.5 RATIO Normal 10-20 [facility] Comment on above: Performed By: #### L 501.5200, L500.3600 ####[facility] [address] [place], [address] Calcium [Mass/Vol] 7.2 mg/dL Low 7.6-11.0 [facility] Comment on above: Performed By: #### L 501.5200, L500.3600 ####[facility] [address] [place], [address] Chloride [Moles/Vol] 102 mmol/L Normal 98-108 [facility] Comment on above: Performed By: #### L 501.5200, L500.3600 ####[facility] [address] [place], [address] Performed By: #### L 500.2500, L501.5200, L500.3600 ####[facility] [address] [place], [address] CO2 [Moles/Vol] 10.8 mmol/L Low 21.0-32.0 [facility] Comment on above: Performed By: #### L 501.5200, L500.3600 ####[facility] [address] [place], [address] Creatinine [Mass/Vol] 4.02 mg/dL High 0.70-1.20 [facility] Comment on above: Performed By: #### L 501.5200, L500.3600 ####[facility] [address] [place], [address] GAP 22 High 5-15 [facility] Comment on above: Performed By: #### L 501.5200, L500.3600 ####[facility] [address] [place], [address] GFR/1.73 sq M.predicted among non-blacks MDRD (S/P/Bld) [Vol rate/Area] 16 mL/min/{1.73_m2} Low >60 [facility] Comment on above: Result Comment: mL/m in/1.73m2 CKD-EPI Creatinine Equation (2020) Performed By: #### L 501.5200, L500.3600 ####[facility] [address] [place], [address] Glucose [Mass/Vol] 171 mg/dL High 70-99 [facility] Comment on above: Performed By: #### L 501.5200, L500.3600 ####[facility] [address] [place], [address] Phosphate [Mass/Vol] 6.1 mg/dL High 2.7-4.5 [facility] Comment on above: Performed By: #### L 501.5200, L500.3600 ####[facility] [address] [place], [address] Potassium [Moles/Vol] 3.7 mmol/L Normal 3.3-5.1 [facility] Comment on above: Result Comment: Hemo lysis present, Results??could be affected.?? Performed By: #### L 501.5200, L500.3600 ####[facility] [address] [place], [address] Sodium [Moles/Vol] 135 mmol/L Normal 133-145 [facility] Comment on above: Performed By: #### L 501.5200, L500.3600 ####[facility] [address] [place], [address] Urea nitrogen [Mass/Vol] 74 mg/dL High 4-19 [facility] Comment on above: Performed By: #### L 501.5200, L500.3600 ####[facility] [address] [place], [address] Thyroid Stim Hormone (TSH)on 05-05-2025 TSH 0.368 uIU/mL Normal 0.300-4.200 [facility] Comment on above: Performed By: #### L 500.2500, L501.9520, L501.5200 ####[facility] [address] [place], [address] Urine Drug Screen (VISTA)on 05-05-2025 AMPHETAMINES Negative Normal <1000 ng/mL [facility] Comment on above: Performed By: #### L 501.2300, L505.5000, L501.7300 ####[facility] [address] [place], [address] BARBITIURATES Negative Normal < 200 ng/mL [facility] Comment on above: Performed By: #### L 501.2300, L505.5000, L501.7300 ####[facility] [address] [place], [address] BENZODIAZIPINE Negative Normal < 200 ng/mL [facility] Comment on above: Performed By: #### L 501.2300, L505.5000, L501.7300 ####[facility] [address] [place], [address] BUP Ur Drug Scr Negative Normal < 200 ng/mL [facility] Comment on above: Performed By: #### L 501.2300, L505.5000, L501.7300 ####[facility] [address] [place], [address] COCAINE Negative Normal < 300 ng/mL [facility] Comment on above: Performed By: #### L 501.2300, L505.5000, L501.7300 ####[facility] [address] [place], [address] Fentanyl Negative Normal <5 ng/mL [facility] Comment on above: Result Comment: CONF IRMATORY [...] Performed By: #### L 501.2300, L505.5000, L501.7300 ####[facility] [address] [place], [address] METHADONE Negative Normal < 300 ng/mL [facility] Comment on above: Performed By: #### L 501.2300, L505.5000, L501.7300 ####[facility] [address] [place], [address] OPIATES Negative Normal < 300 ng/mL [facility] Comment on above: Performed By: #### L 501.2300, L505.5000, L501.7300 ####[facility] [address] [place], [address] OXYCODONE Negative Normal < 100 ng/mL [facility] Comment on above: Performed By: #### L 501.2300, L505.5000, L501.7300 ####[facility] [address] [place], [address] PCP Negative Normal < 25 ng/mL [facility] Comment on above: Performed By: #### L 501.2300, L505.5000, L501.7300 ####[facility] [address] [place], [address] THC Negative Normal < 50 ng/mL [facility] Comment on above: Performed By: #### L 501.2300, L505.5000, L501.7300 ####[facility] [address] [place], [address] Abdomen/Pelvis without Conto n 05-04-2025 Abdomen/Pelvis without Cont Normal [facility] Alcohol, Blood (Medical)-Ser umon 05-04-2025 SERUM ETOH < 10.1 Normal <=10.0 [facility] Comment on above: Result Comment: This test is for medical purposes only. The legaldefinition of intoxication varies according to local law. Performed By: #### L 501.9100 ####[facility] [address] [place], [address] Basic Metabolic Profile (BMP )on 05-04-2025 BUN/CRE 17.9 RATIO Normal - [facility] Comment on above: Performed By: #### L 500.2500 ####[facility] [address] [place], [address] Calcium [Mass/Vol] 7.0 mg/dL Low 7.6-11.0 [facility] Comment on above: Performed By: #### L 500.2500 ####[facility] [address] [place], [address] Chloride [Moles/Vol] 100 mmol/L Normal 98-108 [facility] Comment on above: Performed By: #### L 500.2500 ####[facility] [address] [place], [address] CO2 [Moles/Vol] 5.4 mmol/L Invalid Interpretation Code 21.0-32.0 [facility] Comment on above: Result Comment: Crit ical Result(s) Called at: 2217 by: SHELDON DEVRIES TO CHRISTIAN??Results read back by same. Performed By: #### L 500.2500 ####[facility] [address] [place], [address] Creatinine [Mass/Vol] 5.74 mg/dL High 0.70-1.20 [facility] Comment on above: Performed By: #### L 500.2500 ####[facility] [address] [place], [address] ECRCL 18.22 ml/min Low 50-250 [facility] Comment on above: Performed By: #### L 500.2500 ####[facility] [address] [place], [address] GAP 24 High 5-15 [facility] Comment on above: Performed By: #### L 500.2500 ####[facility] [address] [place], [address] GFR/1.73 sq M.predicted among non-blacks MDRD (S/P/Bld) [Vol rate/Area] 11 mL/min/{1.73_m2} Low >60 [facility] Comment on above: Result Comment: mL/m in/1.73m2 CKD-EPI Creatinine Equation (2020) Performed By: #### L 500.2500 ####[facility] [address] [place], [address] Glucose [Mass/Vol] 355 mg/dL High 70-99 [facility] Comment on above: Performed By: #### L 500.2500 ####[facility] [address] [place], [address] Potassium [Moles/Vol] 5.1 mmol/L Normal 3.3-5.1 [facility] Comment on above: Performed By: #### L 500.2500 ####[facility] [address] [place], [address] Sodium [Moles/Vol] 129 mmol/L Low 133-145 [facility] Comment on above: Performed By: #### L 500.2500 ####[facility] [address] [place], [address] Urea nitrogen [Mass/Vol] 103 mg/dL Invalid Interpretation Code 4-19 [facility] Comment on above: Result Comment: Crit ical Result(s) Called at: by:??[facility] Result(s) Called at: 2217 by: SHELDON RENAEST. [facility]??Results read back by same. Performed By: #### L 500.2500 ####[facility] [address] [place], [address] BUN/CRE 17.9 RATIO Normal 10-20 [facility] Comment on above: Performed By: #### L 500.2500 ####[facility] [address] [place], [address] Calcium [Mass/Vol] 7.2 mg/dL Low 7.6-11.0 [facility] Comment on above: Performed By: #### L 500.2500 ####[facility] [address] [place], [address] Chloride [Moles/Vol] 101 mmol/L Normal 98-108 [facility] Comment on above: Performed By: #### L 500.2500 ####[facility] [address] [place], [address] CO2 [Moles/Vol] 4.4 mmol/L Invalid Interpretation Code 21.0-32.0 [facility] Comment on above: Result Comment: Crit ical Result(s) Called at: 1806 by:??SHELDON ESCOBEDO Results read back by same. Performed By: #### L 500.2500 ####[facility] [address] [place], [address] Creatinine [Mass/Vol] 5.46 mg/dL High 0.70-1.20 [facility] Comment on above: Performed By: #### L 500.2500 ####[facility] [address] [place], [address] ECRCL 19.06 ml/min Low 50-250 [facility] Comment on above: Performed By: #### L 500.2500 ####[facility] [address] [place], [address] GAP 27 High 5-15 [facility] Comment on above: Performed By: #### L 500.2500 ####[facility] [address] [place], [address] GFR/1.73 sq M.predicted among non-blacks MDRD (S/P/Bld) [Vol rate/Area] 11 mL/min/{1.73_m2} Low >60 [facility] Comment on above: Result Comment: mL/m in/1.73m2 CKD-EPI Creatinine Equation (2020) Performed By: #### L 500.2500 ####[facility] [address] [place], [address] Glucose [Mass/Vol] 227 mg/dL High 70-99 [facility] Comment on above: Performed By: #### L 500.2500 ####[facility] [address] [place], [address] Potassium [Moles/Vol] 4.8 mmol/L Normal 3.3-5.1 [facility] Comment on above: Performed By: #### L 500.2500 ####[facility] [address] [place], [address] Sodium [Moles/Vol] 133 mmol/L Normal 133-145 [facility] Comment on above: Performed By: #### L 500.2500 ####[facility] [address] [place], [address] Urea nitrogen [Mass/Vol] 98 mg/dL High 4-19 [facility] Comment on above: Performed By: #### L 500.2500 ####[facility] [address] [place], [address] CO2 [Moles/Vol] 2.9 mmol/L Invalid Interpretation Code 21.0-32.0 [facility] Comment on above: Result Comment: Crit ical Result(s) Called at: 1417 05/04/2025 by:MISAEL??Results read back by same.Critical Result(s) Called at: 1417 05/04/2025 by:MISAEL??Results read back by same.Critical Result(s) Called at: by:??Results read back bysame. AMENDED REPORT 05/04/25 1435 CO2 previously reported as: 2.9 *L mmol/LCritical Result(s) Called at: 1417 05/04/2025 by:MISAEL??Results read back by same. Performed By: #### L 100.0100, L500.2500 ####[facility] [address] [place], [address] GAP 29 High 5-15 [facility] Comment on above: Result Comment: AMENDED REPORT 05/04/25 1435 GAP previously reported as: 29 H Performed By: #### L 100.0100, L500.2500 ####[facility] [address] [place], [address] Bedside Glucoseon 05-04-2025 FINGERSTICK GLU 261 mg/dL High 74-106 [facility] Comment on above: Result Comment: KIANA GEMENT OF PATIENT CARE PER NURSING PROTOCOL Performed By: #### L 501.080 ####[facility] [address] [place], [address] FINGERSTICK GLU 253 mg/dL High 74-106 [facility] Comment on above: Result Comment: KIANA GEMENT OF PATIENT CARE PER NURSING PROTOCOL Performed By: #### L 501.080 ####[facility] [address] [place], [address] FINGERSTICK GLU 111 mg/dL High 74-106 [facility] Comment on above: Result Comment: KIANA GEMENT OF PATIENT CARE PER NURSING PROTOCOL Performed By: #### L 501.080 ####[facility] [address] [place], [address] Beta-Hydroxbytyrateon 2024 BETA-HYDROXYBUT 2.9 mmol/L High 0.0-0.3 [facility] Comment on above: Performed By: #### L 501.5500, L502.0300, L509.7001, L501.9985, L501.6901 ####[facility] [address] [place], [address] Blood Gases by CPSon 025 Base excess Calc (Bld) [Moles/Vol] -27 mmol/L Low -2 to +2 [facility] Comment on above: Performed By: #### L 9000.0800 ####[facility] [address] [place], [address] Blood Gas Type ART Normal [facility] Comment on above: Performed By: #### L 9000.0800 ####[facility] [address] [place], [address] CO2 [Moles/Vol] 7 mmol/L Normal [facility] Comment on above: Performed By: #### L 9000.0800 ####[facility] [address] [place], [address] FI02 30.0 Normal [facility] Comment on above: Performed By: #### L 9000.0800 ####[facility] [address] [place], [address] HCO3 (Bld) [Moles/Vol] 6.2 mmol/L Low 22-26 [facility] Comment on above: Performed By: #### L 9000.0800 ####[facility] [address] [place], [address] Mode AC Normal [facility] Comment on above: Performed By: #### L 9000.0800 ####[facility] [address] [place], [address] O2 Delivery Dev Adult Vent Normal [facility] Comment on above: Performed By: #### L 9000.0800 ####[facility] [address] [place], [address] pCO2 32.5 mmHg Low 35-45 [facility] Comment on above: Performed By: #### L 9000.0800 ####[facility] [address] [place], [address] PEEP 5 Normal [facility] Comment on above: Performed By: #### L 9000.0800 ####[facility] [address] [place], [address] pH (Bld) 6.89 [pH] Invalid Interpretation Code 7.35-7.45 [facility] Comment on above: Performed By: #### L 9000.0800 ####[facility] [address] [place], [address] PO2 86 mmHG Normal 75-100 [facility] Comment on above: Performed By: #### L 9000.0800 ####[facility] [address] [place], [address] Read Back By Yes [facility] Comment on above: Performed By: #### L 9000.0800 ####[facility] [address] [place], [address] Results To mosteller [facility] Comment on above: Performed By: #### L 8999.0800 ####[facility] [address] [place], [address] RR 24 Normal [facility] Comment on above: Performed By: #### L 8999.0800 ####[facility] [address] [place], [address] SITE R Brach Normal [facility] Comment on above: Performed By: #### L 8999.0800 ####[facility] [address] [place], [address] SO2 86 Low 95-99 [facility] Comment on above: Performed By: #### L 8999.0800 ####[facility] [address] [place], [address] Time Given 18:08:41 [facility] Comment on above: Performed By: #### L 8999.0800 ####[facility] [address] [place], [address] Vt 450.0 mL Normal [facility] Comment on above: Performed By: #### L 8999.0800 ####[facility] [address] [place], [address] BRADLY TEST Positive Normal [facility] Comment on above: Performed By: #### L 8999.0800 ####[facility] [address] [place], [address] BE < -30 Low -2 to +2 [facility] Comment on above: Performed By: #### L 8999.0800 ####[facility] [address] [place], [address] Blood Gas Type ART Normal [facility] Comment on above: Performed By: #### L 8999.0800 ####[facility] [address] [place], [address] CO2 [Moles/Vol] 5 mmol/L Normal [facility] Comment on above: Performed By: #### L 9000.0800 ####[facility] [address] [place], [address] FI02 35.0 Normal [facility] Comment on above: Performed By: #### L 9000.0800 ####[facility] [address] [place], [address] HCO3 (Bld) [Moles/Vol] 4.2 mmol/L Low 22-26 [facility] Comment on above: Performed By: #### L 9000.0800 ####[facility] [address] [place], [address] Mode AC Normal [facility] Comment on above: Performed By: #### L 9000.0800 ####[facility] [address] [place], [address] O2 Delivery Dev Adult Vent Normal [facility] Comment on above: Performed By: #### L 9000.0800 ####[facility] [address] [place], [address] pCO2 26.9 mmHg Low 35-45 [facility] Comment on above: Performed By: #### L 9000.0800 ####[facility] [address] [place], [address] PEEP 5 Normal [facility] Comment on above: Performed By: #### L 9000.0800 ####[facility] [address] [place], [address] pH (Bld) 6.80 [pH] Invalid Interpretation Code 7.35-7.45 [facility] Comment on above: Performed By: #### L 9000.0800 ####[facility] [address] [place], [address] PO2 105 mmHG High 75-100 [facility] Comment on above: Performed By: #### L 9000.0800 ####[facility] [address] [place], [address] Read Back By Yes [facility] Comment on above: Performed By: #### L 9000.0800 ####[facility] [address] [place], [address] Results To mostetler [facility] Comment on above: Performed By: #### L 9000.0800 ####[facility] [address] [place], [address] RR 12 Normal [facility] Comment on above: Performed By: #### L 9000.0800 ####[facility] [address] [place], [address] SITE R Brach [facility] Comment on above: Performed By: #### L 9000.0800 ####[facility] [address] [place], [address] SO2 89 Low 95-99 [facility] Comment on above: Performed By: #### L 9000.0800 ####[facility] [address] [place], [address] Time Given 15:47:52 [facility] Comment on above: Performed By: #### L 9000.0800 ####[facility] [address] [place], [address] Vt 450.0 mL [facility] Comment on above: Performed By: #### L 9000.0800 ####[facility] [address] [place], [address] BE < -30 Low -2 to +2 [facility] Comment on above: Performed By: #### L 9000.0800 ####[place] [facility] [address] [place], [address] Blood Gas Type ART Normal [facility] Comment on above: Performed By: #### L 8999.0800 ####[facility] [address] [place], [address] FI02 3.0 [facility] Comment on above: Performed By: #### L 8999.0800 ####[facility] [address] [place], [address] HCO3 (Bld) [Moles/Vol] 1.5 mmol/L Low 22-26 [facility] Comment on above: Performed By: #### L 8999.0800 ####[facility] [address] [place], [address] Mode Not entered Normal [facility] Comment on above: Performed By: #### L 0.0800 ####[facility] [address] [place], [address] O2 Delivery Dev Cannula Normal [facility] Comment on above: Performed By: #### L 8999.0800 ####[facility] [address] [place], [address] pCO2 7.2 mmHg Invalid Interpretation Code 35-45 [facility] Comment on above: Performed By: #### L 8999.0800 ####[facility] [address] [place], [address] pH (Bld) 6.93 [pH] Invalid Interpretation Code 7.35-7.45 [facility] Comment on above: Performed By: #### L 8999.0800 ####[facility] [address] [place], [address] PO2 148 mmHG High 75-100 [facility] Comment on above: Performed By: #### L 0.0800 ####[facility] [address] [place], [address] Read Back By Yes Normal [facility] Comment on above: Performed By: #### L 9000.0800 ####[facility] [address] [place], [address] Results To jw Normal [facility] Comment on above: Performed By: #### L 9000.0800 ####[facility] [address] [place], [address] SITE R Brach Normal [facility] Comment on above: Performed By: #### L 9000.0800 ####[facility] [address] [place], [address] SO2 97 Normal 95-99 [facility] Comment on above: Performed By: #### L 9000.0800 ####[facility] [address] [place], [address] Time Given 13:13:02 Normal [facility] Comment on above: Performed By: #### L 9000.0800 ####[facility] [address] [place], [address] TOTAL CO2 < 5 Normal [facility] Comment on above: Performed By: #### L 9000.0800 ####[facility] [address] [place], [address] CBC W/Diff, Automatedon 10-0 PATH REV May foll Normal [facility] Comment on above: Performed By: #### L 100.0100, L500.2500 ####[facility] [address] [place], [address] PLT EST ADEQUATE Normal ADEQ [facility] Comment on above: Performed By: #### L 100.0100, L500.2500 ####[facility] [address] [place], [address] SMEAR COMMENT SCANNED Normal [facility] Comment on above: Performed By: #### L 100.0100, L500.2500 ####[facility] [address] [place], [address] CPK Total, Creatine Kinaseon 05-04-2025 CPK TOTAL 76 U/L Normal 24-195 [facility] Comment on above: Order Comment: Comme nts: DC when propofol is d/c'd Performed By: #### L 501.5000, L501.3620 ####[facility] [address] [place], [address] Chest 1 Viewon 05-04-2025 Chest 1 View Normal [facility] Chest 1 View (Portable)on Chest 1 View (Portable) Normal [facility] Chest 1 View (Portable) Normal [facility] Chest 1 View (Portable) Normal [facility] Chest 1 View (Portable) Normal [facility] Consultation - Intensiviston 05-04-2025 Consultation - Psychotherapist Social Worker Normal [facility] Creatinine, Urineon 05-04-20 25 URINE CREAT 56.00 mg/dL Normal 39.00-259.0 0 [facility] Comment on above: Performed By: #### L 501.5500, L502.0300, L509.7001, L501.9985, L501.6901 ####[facility] [address] [place], [address] Emergency Department Summary on 05-04-2025 Emergency Department Summary Normal [facility] H AND P Exam - Hospitaliston 05-04-2025 H&P Exam - Hospitalist Normal [facility] Hemoglobin A1con 05-04-2025 HbA1c (Bld) [Mass fraction] 6.6 % High <=5.6 [facility] Comment on above: Result Comment: Norm al < 5.7 % Prediabetic 5.7 - 6.4 % Diabetic >or= 6.5 % Please note range changes. Performed By: #### L 501.5500, L502.0300, L509.7001, L501.9985, L501.6901 ####[facility] [address] [place], [address] L501.4021on 05-04-2025 Trop T High Sen 24 ng/L High <=22 [facility] Comment on above: Performed By: #### L 501.4021 ####[facility] [address] [place], [address] L509.7001on 05-04-2025 Procalcitonin 26.50 ng/mL High <=0.10 [facility] Comment on above: Result Comment: Inte rpretation:<0.10-0.25 [...] #### L 501.5500, L502.0300, L509.7001, L501.9985, L501.6901 ####[facility] [address] [place], [address] Lactic Acidon 05-04-2025 Lactate [Moles/Vol] 1.1 mmol/L Normal 0.0-2.0 [facility] Comment on above: Performed By: #### L 503.6005 ####[facility] [address] [place], [address] Lactate [Moles/Vol] 2.2 mmol/L Invalid Interpretation Code 0.0-2.0 [facility] Comment on above: Order Comment: Y Result Comment: Crit ical Result(s) Called at: 1453 by: SHELDON YOUSSEF??Results read back by same. Performed By: #### L 503.6005 ####[facility] [address] [place], [address] Legionella Antigen Urineon 1 LEGU Normal [facility] Comment on above: Performed By: #### M 300.4600, M300.4500 ####[facility] [address] [place], [address] M100.678on 05-04-2025 M100.678 Pending SARS-CoV-2 (COVID 19) Negative INFLUENZA A Negative INFLUENZA B Negative RSV PCR Negative Normal [facility] Comment on above: Performed By: #### M 100.678 ####[facility] [address] [place], [address] M8200.1000on 05-04-2025 M8200.1000 Negative Normal [facility] Comment on above: Performed By: #### M 8200.1000 ####[facility] [address] [place], [address] Partial Thromboplast Timeon 05-04-2025 aPTT Coag (Bld) [Time] 32.4 s Normal 24.1-36.2 [facility] Comment on above: Performed By: #### L 300.4310, L300.3900 ####[facility] [address] [place], [address] Procedure Reporton Procedure Report Normal [facility] Prothrombin Time w/INRon INR Coag (PPP) [Relative time] 1.9 {INR} Normal [facility] Comment on above: Performed By: #### L 300.4310, L300.3900 ####[facility] [address] [place], [address] PT Coag (PPP) [Time] 21.7 s High 11.7-14.9 [facility] Comment on above: Performed By: #### L 300.4310, L300.3900 ####[facility] [address] [place], [address] RESPIRATORY PANEL MOLECULARo n 05-04-2025 RP PANEL Normal [facility] Comment on above: Performed By: #### M 100.638 ####[facility] [address] [place], [address] Strep pneumoniae Antig(UR,CS F)on 05-04-2025 STPAG Normal [facility] Comment on above: Performed By: #### M 300.4600, M300.4500 ####[facility] [address] [place], [address] Triglycerideson 05-04-2025 Triglyceride [Mass/Vol] 258 mg/dL High [facility] Comment on above: Order Comment: Comme nts: DC when propofol is d/c'dDC when propofol is d/c'd Result Comment: The drugs N-Acetylcysteine and Metamizole may falselydepress this assay.Normal range: <150 mg/dLBorderline High: 150-199 mg/dLHigh: 200-499 mg/dLVery High: >500 mg/dL Performed By: #### L 501.5000, L501.3620 ####[facility] [address] [place], [address] Troponin T HS 2 HRon 025 Trop T High Sen 23 ng/L High <=22 [facility] Comment on above: Performed By: #### L 499.0042 ####[facility] [address] [place], [address] Trop T High Sen Normal <=22 [facility] Comment on above: Result Comment: [place], COMPLETED @0363 Performed By: #### L 499.0042 ####[facility] [address] [place], [address] Troponin T HS 4 HRon 025 Trop T High Sen 26 ng/L High <=22 [facility] Comment on above: Performed By: #### L 499.0043 ####[facility] [address] [place], [address] Urinalysis, Completeon 05-04 BACTERIA 1+ /hpf Normal None Seen [facility] Comment on above: Order Comment: COLLE CTOR TO SPECIFY Performed By: #### L 400.0001 ####[facility] [address] [place], [address] RBC 25-50 SEEN Normal 0-5 [facility] Comment on above: Order Comment: COLLE CTOR TO SPECIFY Performed By: #### L 400.0001 ####[facility] [address] [place], [address] WBC 25-50 SEEN Normal 0-5 [facility] Comment on above: Order Comment: COLLE CTOR TO SPECIFY Performed By: #### L 400.0001 ####[facility] [address] [place], [address] EPI,SQUAMOUS 0 SEEN Normal [address] [place] [address] Comment on above: Order Comment: COLLE CTOR TO SPECIFY Performed By: #### L 400.0001 ####[facility] [address] [place], [address] Mucus Ql (Urine sed) 0 SEEN Normal [facility] Comment on above: Order Comment: COLLE CTOR TO SPECIFY Performed By: #### L 400.0001 ####[facility] [address] [place], [address] Urine Sodiumon 05-04-2025 Sodium (U) [Moles/Vol] 78 mmol/L Normal Not Establ. [facility] Comment on above: Performed By: #### L 501.5500, L502.0300, L509.7001, L501.9985, L501.6901 ####[facility] [address] [place], [address] Elbow min 3 Viewson 01-23- 25 Elbow min 3 Views Normal [facility] Absolute lymphocyte countOrd ered By: Monroe Lorna on 12-06-2024 Lymphocytes Auto (Unsp spec) [#/Vol] 1.64 10*3/uL 0.83-4.51 [facility] Absolute neutrophil countOrd ered By: Monroe Rothman on 12-06-2024 Neutrophils (Bld) [#/Vol] 3.5 10*3/uL 2.0-7.7 [facility] Anion gap in Serum or Plasma Ordered By: Monroe Rothman on 12-06-2024 Anion gap [Moles/Vol] 11 mmol/L 5- [facility] Automated lymphocyte count a s percentage of total leukocytesOrdered By: Monroe Rothman on 12-06-2024 Lymphocytes/100 WBC Auto (Unsp spec) 28.2 % 19- [facility] BUN/creatinine ratioOrdered By: Monroe Rothman on 12-06-2024 Urea nitrogen/Creatinine [Mass ratio] 15.0 mg/mg 10- [facility] Basophil percentageOrdered B y: Monroe Rothman on 12-06-2024 Basophils/100 WBC (Bld) 0.7 % 0-[address] [facility] Bilirubin, totalOrdered By: Monroe Rothman on 12-06-2024 Bilirubin [Mass/Vol] mg/dL 0.00-1.30 [facility] CBC W/Diff, Automatedon 11-24 Absolute Lymph 1.64 X10 3/uL Normal 0.83-4.51 [facility] Comment on above: Order Comment: Order Date: 12/06/24Order Info: [id number] - CBCD Performed By: #### L 501.9520, L501.9985, L500.4100, L100.0100, L501.9910, L500.4050 ####[facility] [address] [place], [place], [address] Absolute Neut 3.5 X10 3/uL Normal 2.0-7.7 [facility] Comment on above: Order Comment: Order Date: 12/06/24Order Info: [id number] - CBCD Performed By: #### L 501.9520, L501.9985, L500.4100, L100.0100, L501.9910, L500.4050 ####[facility] [address] [place], [address] Basophils/100 WBC (Bld) 0.7 % Normal 0-[address] [facility] Comment on above: Order Comment: Order Date: 12/06/24Order Info: [id number] - CBCD Performed By: #### L 501.9520, L501.9985, L500.4100, L100.0100, L501.9910, L500.4050 ####[facility] [address] [place], [address] Eosinophils/100 WBC (Bld) 2.4 % Normal 0-5 [facility] Comment on above: Order Comment: Order Date: 12/06/24Order Info: [id number] - CBCD Performed By: #### L 501.9520, L501.9985, L500.4100, L100.0100, L501.9910, L500.4050 ####[facility] [address] [facility] [place], [address] Erythrocyte distribution width (RBC) [Ratio] 13.7 % Normal 11.6-14.6 [facility] Comment on above: Order Comment: Order Date: 12/06/24Order Info: [id number] - CBCD Performed By: #### L 501.9520, L501.9985, L500.4100, L100.0100, L501.9910, L500.4050 ####[facility] [address] [place], [address] Hematocrit (Bld) [Volume fraction] 35.5 % Low 40-54 [facility] Comment on above: Order Comment: Order Date: 12/06/24Order Info: [id number] - CBCD Performed By: #### L 501.9520, L501.9985, L500.4100, L100.0100, L501.9910, L500.4050 ####[facility] [address] [place], [address] Hemoglobin (Bld) [Mass/Vol] 12.2 g/dL Low 13.0-16.5 [facility] Comment on above: Order Comment: Order Date: 12/06/24Order Info: [id number] - CBCD Performed By: #### L 501.9520, L501.9985, L500.4100, L100.0100, L501.9910, L500.4050 ####[facility] [address] [place], [address] IG% 0.300 Normal 0.0-0.9 [facility] Comment on above: Order Comment: Order Date: 12/06/24Order Info: [id number] - CBCD Result Comment: IG% - Immature Granulocytes (promyelocytes, myelocytes andmetamyelocytes) > 1% indicates that a LEFT SHIFT is Present. Performed By: #### L 501.9520, L501.9985, L500.4100, L100.0100, L501.9910, L500.4050 ####[facility] [address] [place], [address] Lymphocytes/100 WBC (Bld) 28.2 % Normal 19-41 [facility] Comment on above: Order Comment: Order Date: 12/06/24Order Info: [id number] - CBCD Performed By: #### L 501.9520, L501.9985, L500.4100, L100.0100, L501.9910, L500.4050 ####[facility] [address] [place], [address] MCH (RBC) [Entitic mass] 30.0 pg Normal 27.0-32.0 [facility] Comment on above: Order Comment: Order Date: 12/06/24Order Info: [id number] - CBCD Performed By: #### L 501.9520, L501.9985, L500.4100, L100.0100, L501.9910, L500.4050 ####[facility] [address] [place], [address] MCHC (RBC) [Mass/Vol] 34.4 g/dL Normal 32-36 [facility] Comment on above: Order Comment: Order Date: 12/06/24Order Info: [id number] - CBCD Performed By: #### L 501.9520, L501.9985, L500.4100, L100.0100, L501.9910, L500.4050 ####[facility] [address] [place], [address] MCV (RBC) [Entitic vol] 87.2 fL Normal 80-[address] [facility] Comment on above: Order Comment: Order Date: 12/06/24Order Info: [id number] - CBCD Performed By: #### L 501.9520, L501.9985, L500.4100, L100.0100, L501.9910, L500.4050 ####[facility] [address] [place], [address] Monocytes/100 WBC (Bld) 8.1 % Normal 0-[address] [facility] Comment on above: Order Comment: Order Date: 12/06/24Order Info: [id number] - CBCD Performed By: #### L 501.9520, L501.9985, L500.4100, L100.0100, L501.9910, L500.4050 ####[facility] [address] [place], [address] Neutrophils/100 WBC (Bld) 60.3 % Normal 47-70 [facility] Comment on above: Order Comment: Order Date: 12/06/24Order Info: [id number] - CBCD Performed By: #### L 501.9520, L501.9985, L500.4100, L100.0100, L501.9910, L500.4050 ####[facility] [address] [place], [address] Nucleated RBC (Bld) [#/Vol] 0 10*3/uL Normal 0-5 [facility] Comment on above: Order Comment: Order Date: 12/06/24Order Info: [id number] - CBCD Performed By: #### L 501.9520, L501.9985, L500.4100, L100.0100, L501.9910, L500.4050 ####[facility] [address] [place], [address] Platelet mean volume (Bld) [Entitic vol] 10.0 fL Normal 6.2-12.0 [facility] Comment on above: Order Comment: Order Date: 12/06/24Order Info: [id number] - CBCD Performed By: #### L 501.9520, L501.9985, L500.4100, L100.0100, L501.9910, L500.4050 ####[facility] [address] [place], [address] Platelets (Bld) [#/Vol] 221 10*3/uL Normal 150-450 [facility] Comment on above: Order Comment: Order Date: 12/06/24Order Info: [id number] - CBCD Performed By: #### L 501.9520, L501.9985, L500.4100, L100.0100, L501.9910, L500.4050 ####[facility] [address] [place], [address] RBC (Bld) [#/Vol] 4.07 10*6/uL Low 4.6-6.2 [facility] Comment on above: Order Comment: Order Date: 12/06/24Order Info: [id number] - CBCD Performed By: #### L 501.9520, L501.9985, L500.4100, L100.0100, L501.9910, L500.4050 ####[facility] [address] [place], [address] RDW SD 43.5 fl Normal 35.1-43.9 [facility] Comment on above: Order Comment: Order Date: 12/06/24Order Info: [id number] - CBCD Performed By: #### L 501.9520, L501.9985, L500.4100, L100.0100, L501.9910, L500.4050 ####[facility] [address] [place], [address] WBC (Bld) [#/Vol] 5.8 10*3/uL Normal 4.4-11.0 [facility] Comment on above: Order Comment: Order Date: 12/06/24Order Info: [id number] - CBCD Performed By: #### L 501.9520, L501.9985, L500.4100, L100.0100, L501.9910, L500.4050 ####[facility] [address] [facility] [place], [place], [address] Calculated very low density lipoprotein (VLDL) cholesterol measurementOrdered By: Monroe Rothman on 12-06-2024 Calculated very low density lipoprotein (VLDL) cholesterol measurement 44 mg/dL High 5-40 [facility] Carbon dioxide, total [Moles /volume] in Central venous bloodOrdered By: Monroe Rothman on 12-06-2024 CO2 [Moles/Vol] 17.6 mmol/L Low 21.0-32.0 [facility] Chloride assayOrdered By: Daniel Rothman on 12-06-2024 Chloride [Moles/Vol] 112 mmol/L High 98-108 [facility] Comprehensive Metabolic Prof ilon 12-06-2024 Albumin [Mass/Vol] 4.1 g/dL Normal 3.5-5.0 [facility] Comment on above: Order Comment: Order Date: 12/06/24Order Info: [id number] - CMPOrder Info: - LIPIDOrder Info: [id number] - TSHOrder Info: [id number] - PSA Performed By: #### L 501.9520, L501.9985, L500.4100, L100.0100, L501.9910, L500.4050 ####[facility] [address] [place], [address] Albumin/Globulin [Mass ratio] 1.6 {ratio} Normal 0.9-2.4 [facility] Comment on above: Order Comment: Order Date: 12/06/24Order Info: [id number] - CMPOrder Info: - LIPIDOrder Info: [id number] - TSHOrder Info: [id number] - PSA Performed By: #### L 501.9520, L501.9985, L500.4100, L100.0100, L501.9910, L500.4050 ####[facility] [address] [place], [address] ALK PHOS 95 U/L Normal 40-129 [facility] Comment on above: Order Comment: Order Date: 12/06/24Order Info: [id number] - CMPOrder Info: - LIPIDOrder Info: [id number] - TSHOrder Info: [id number] - PSA Performed By: #### L 501.9520, L501.9985, L500.4100, L100.0100, L501.9910, L500.4050 ####[facility] [address] [place], [address] ALT [Catalytic activity/Vol] 14 U/L Normal <=46 [facility] Comment on above: Order Comment: Order Date: 12/06/24Order Info: [id number] - CMPOrder Info: - LIPIDOrder Info: [id number] - TSHOrder Info: [id number] - PSA Performed By: #### L 501.9520, L501.9985, L500.4100, L100.0100, L501.9910, L500.4050 ####[facility] [address] [place], [address] AST [Catalytic activity/Vol] 17 U/L Normal <=37 [facility] Comment on above: Order Comment: Order Date: 12/06/24Order Info: [id number] - CMPOrder Info: [id number] - LIPIDOrder Info: [id number] - TSHOrder Info: [id number] - PSA Performed By: #### L 501.9520, L501.9985, L500.4100, L100.0100, L501.9910, L500.4050 ####[facility] [address] [place], [address] BUN/CRE 15.0 RATIO Normal 10-20 [facility] Comment on above: Order Comment: Order Date: 12/06/24Order Info: 785- - CMPOrder Info: [id number] - LIPIDOrder Info: 3 - TSHOrder Info: [id number] - PSA Performed By: #### L 501.9520, L501.9985, L500.4100, L100.0100, L501.9910, L500.4050 ####[facility] [address] [place], [address] Calcium [Mass/Vol] 8.7 mg/dL Normal 7.6-11.0 [facility] Comment on above: Order Comment: Order Date: 12/06/24Order Info: 07- - CMPOrder Info: [id number] - LIPIDOrder Info: [id number] - TSHOrder Info: [id number] - PSA Performed By: #### L 501.9520, L501.9985, L500.4100, L100.0100, L501.9910, L500.4050 ####[facility] [address] [place], [address] Chloride [Moles/Vol] 112 mmol/L High 98-108 [facility] Comment on above: Order Comment: Order Date: 12/06/24Order Info: 86-1 - CMPOrder Info: [id number] - LIPIDOrder Info: 3 - TSHOrder Info: [id number] - PSA Performed By: #### L 501.9520, L501.9985, L500.4100, L100.0100, L501.9910, L500.4050 ####[facility] [address] [place], [address] CO2 [Moles/Vol] 17.6 mmol/L Low 21.0-32.0 [facility] Comment on above: Order Comment: Order Date: 12/06/24Order Info: [id number] - CMPOrder Info: [id number] - LIPIDOrder Info: [id number] - TSHOrder Info: [id number]- - PSA Performed By: #### L 501.9520, L501.9985, L500.4100, L100.0100, L501.9910, L500.4050 ####[facility] [address] [place], [place], [address] Creatinine [Mass/Vol] 1.76 mg/dL High 0.70-1.20 [facility] Comment on above: Order Comment: Order Date: 12/06/24Order Info: 785- - CMPOrder Info: [id number] - LIPIDOrder Info: 3 - TSHOrder Info: [id number] - PSA Performed By: #### L 501.9520, L501.9985, L500.4100, L100.0100, L501.9910, L500.4050 ####[facility] [address] [place], [address] GAP 11 Normal 5-15 [facility] Comment on above: Order Comment: Order Date: 12/06/24Order Info: 86-1 - CMPOrder Info: [id number] - LIPIDOrder Info: 3 - TSHOrder Info: [id number] - PSA Performed By: #### L 501.9520, L501.9985, L500.4100, L100.0100, L501.9910, L500.4050 ####[facility] [address] [place], [place], [address] GFR/1.73 sq M.predicted among non-blacks MDRD (S/P/Bld) [Vol rate/Area] 45 mL/min/{1.73_m2} Low >60 [facility] Comment on above: Order Comment: Order Date: 12/06/24Order Info: 86- - CMPOrder Info: [id number] - LIPIDOrder Info: 3 - TSHOrder Info: [id number] - PSA Result Comment: mL/m in/1.73m2 CKD-EPI Creatinine Equation (2020) Performed By: #### L 501.9520, L501.9985, L500.4100, L100.0100, L501.9910, L500.4050 ####[facility] [address] [place], [place], [address] Globulin (S) [Mass/Vol] 2.6 g/dL Normal 2.2-4.2 [facility] Comment on above: Order Comment: Order Date: 12/06/24Order Info: [id number] - CMPOrder Info: - LIPIDOrder Info: [id number] - TSHOrder Info: [id number] - PSA Performed By: #### L 501.9520, L501.9985, L500.4100, L100.0100, L501.9910, L500.4050 ####[facility] [address] [place], [address] Glucose [Mass/Vol] 94 mg/dL Normal 70-99 [facility] Comment on above: Order Comment: Order Date: 12/06/24Order Info: 785- - CMPOrder Info: [id number] - LIPIDOrder Info: [id number] - TSHOrder Info: [id number] - PSA Performed By: #### L 501.9520, L501.9985, L500.4100, L100.0100, L501.9910, L500.4050 ####[facility] [address] [place], [address] Potassium [Moles/Vol] 3.7 mmol/L Normal 3.3-5.1 [facility] Comment on above: Order Comment: Order Date: 12/06/24Order Info: [id number] - CMPOrder Info: [id number] - LIPIDOrder Info: [id number] - TSHOrder Info: [id number] - PSA Performed By: #### L 501.9520, L501.9985, L500.4100, L100.0100, L501.9910, L500.4050 ####[facility] [address] [place], [address] Sodium [Moles/Vol] 141 mmol/L Normal 133-145 [facility] Comment on above: Order Comment: Order Date: 12/06/24Order Info: 785- - CMPOrder Info: [id number] - LIPIDOrder Info: [id number] - TSHOrder Info: [id number] - PSA Performed By: #### L 501.9520, L501.9985, L500.4100, L100.0100, L501.9910, L500.4050 ####[facility] [address] [place], [address] T BILI < 0.15 Normal 0.00-1.30 [facility] Comment on above: Order Comment: Order Date: 12/06/24Order Info: [id number]- - CMPOrder Info: [id number] - LIPIDOrder Info: [id number] - TSHOrder Info: [id number] - PSA Performed By: #### L 501.9520, L501.9985, L500.4100, L100.0100, L501.9910, L500.4050 ####[facility] [address] [place], [address] T PROT 6.6 g/dL Normal 5.9-8.4 [facility] Comment on above: Order Comment: Order Date: 05/13/25Order Info: [id number] - CMPOrder Info: [id number] - LIPIDOrder Info: [id number] - TSHOrder Info: [id number] - PSA Performed By: #### L 501.9520, L501.9985, L500.4100, L100.0100, L501.9910, L500.4050 ####[facility] [address] [place], [place], [address] Urea nitrogen [Mass/Vol] 26 mg/dL High 4-19 [facility] Comment on above: Order Comment: Order Date: 12/06/24Order Info: [id number] - CMPOrder Info: [id number] - LIPIDOrder Info: [id number] - TSHOrder Info: [id number] - PSA Performed By: #### L 501.9520, L501.9985, L500.4100, L100.0100, L501.9910, L500.4050 ####[facility] [address] [place], [place], [address] Eosinophil percentageOrdered By: Monroe Rothman on 12-06-2024 Eosinophils/100 WBC (Bld) 2.4 % 0-5 [facility] Erythrocyte distribution wid th ratioOrdered By: Monroe Rothman on 12-06-2024 Erythrocyte distribution width (RBC) [Ratio] 13.7 % 11.6-14.6 [facility] Erythrocyte distribution wid th standard deviationOrdered By: Monroe Rothman on 12-06-2024 Erythrocyte distribution width (RBC) [Ratio] 43.5 fl 35.1-43.9 [facility] Glomerular filtration rate ( GFR) estimation/1.73 sq m using serum, plasma, or whole bOrdered By: Monroe Rothman on 12-06-2024 GFR/1.73 sq M.predicted among non-blacks MDRD (S/P/Bld) [Vol rate/Area] 45 mL/min/{1.73_m2} Low >60 [facility] Comment on above: mL/min/1.73m2 CKD-EP I Creatinine Equation (2020) Hematocrit Auto (Bld) [Volum e fraction]Ordered By: Monroe Rothman on 12-06-2024 Hematocrit (Bld) [Volume fraction] 35.5 % Low 40-54 [facility] Hemoglobin A1con 12-06-2024 HbA1c (Bld) [Mass fraction] 5.8 % High <=5.6 [facility] Comment on above: Order Comment: Order Date: 12/06/24Order Info: [id number] - A1C Result Comment: Norm al < 5.7 % Prediabetic 5.7 - 6.4 % Diabetic >or= 6.5 % Please note range changes. Performed By: #### L 501.9520, L501.9985, L500.4100, L100.0100, L501.9910, L500.4050 ####[facility] [address] [place], [address] Hemoglobin A1c percentageOrd ered By: Monroe Rothman on 12-06-2024 HbA1c (Bld) [Mass fraction] 5.8 % High <5.7 [facility] Comment on above: Normal < 5.7 % Predi abetic 5.7 - 6.4 % Diabetic >or= 6.5 % Please note range changes. Hemoglobin measurementOrdere d By: Monroe Rothman on 12-06-2024 Hemoglobin (Bld) [Mass/Vol] 12.2 g/dL Low 13.0-16.5 [facility] Immature granulocytes/100 WB C Auto (Bld)Ordered By: Monroe Rothman on 12-06-2024 Immature granulocytes/100 WBC (Bld) 0.300 % 0.0-0.9 [facility] Comment on above: IG% - Immature Granu locytes (promyelocytes, myelocytes and metamyelocytes) > 1% indicates that a LEFT SHIFT is Present. LDL calc ser/plasOrdered By: Monroe Rothman on 12-06-2024 Cholesterol in LDL [Mass/Vol] 104 mg/dL [facility] Comment on above: Yjydxvgfra=765-318 m g/dL & Higher Qfvo=410 mg/dL or greater Laboratory - Chemistry and C hemistry - challengeOrdered By: Monroe Rothman on 12-06-2024 AST [Catalytic activity/Vol] 17 U/L <38 [facility] Lipid Profileon 12-06-2024 CHOL:HDL 7.26 Normal [facility] Comment on above: Order Comment: Order Date: 12/06/24Order Info: [id number] - CMPOrder Info: [id number] - LIPIDOrder Info: [id number] - TSHOrder Info: [id number] - PSA Performed By: #### L 501.9520, L501.9985, L500.4100, L100.0100, L501.9910, L500.4050 ####[facility] [address] [place], [address] Cholesterol [Mass/Vol] 172 mg/dL Normal <=200 [facility] Comment on above: Order Comment: Order Date: 12/06/24Order Info: [id number] - CMPOrder Info: [id number] - LIPIDOrder Info: [id number] - TSHOrder Info: [id number] - PSA Result Comment: Chol esterol level, Desirable <200 mg/dLBorderline high cholesterol 200-239 mg/dLHigh cholesterol >=240 mg/dLRecommendations of the NCEP Adult Treatment Panel for thefollowing risk-cutoff thresholds for the [place] [facility]. Performed By: #### L 501.9520, L501.9985, L500.4100, L100.0100, L501.9910, L500.4050 ####[facility] [address] [place], [address] Cholesterol in HDL [Mass/Vol] 24 mg/dL Low [facility] Comment on above: Order Comment: Order Date: 12/06/24Order Info: [id number] - CMPOrder Info: [id number] - LIPIDOrder Info: 63 - TSHOrder Info: [id number] - PSA Result Comment: Lis onal Cholesterol Education Program (NCEP) guidelines:<40 mg/dL: Low HDL-cholesterol (major risk factor for CHD)>= 60 mg/dL: High HDL-cholesterol (negative risk factor forCHD)HDL-cholesterol is affected by a number of factors, e.g.smoking, exercise, hormones, sex and age. Performed By: #### L 501.9520, L501.9985, L500.4100, L100.0100, L501.9910, L500.4050 ####[facility] [address] [place], [address] Cholesterol in LDL [Mass/Vol] 104 mg/dL Normal [facility] Comment on above: Order Comment: Order Date: 12/06/24Order Info: [id number] - CMPOrder Info: [id number] - LIPIDOrder Info: 3 - TSHOrder Info: 285- - PSA Result Comment: Bord spdedh=582-301 mg/dL Higher Drby=587 mg/dL or greater Performed By: #### L 501.9520, L501.9985, L500.4100, L100.0100, L501.9910, L500.4050 ####[facility] [address] [place], [address] Cholesterol in VLDL [Mass/Vol] 44 mg/dL High 5-40 [facility] Comment on above: Order Comment: Order Date: 12/06/24Order Info: [id number] - CMPOrder Info: - LIPIDOrder Info: [id number] - TSHOrder Info: [id number] - PSA Performed By: #### L 501.9520, L501.9985, L500.4100, L100.0100, L501.9910, L500.4050 ####[facility] [id number] [place], [address] Triglyceride [Mass/Vol] 220 mg/dL High [facility] Comment on above: Order Comment: Order Date: 12/06/24Order Info: [id number] - CMPOrder Info: [id number] - LIPIDOrder Info: [id number] - TSHOrder Info: [id number] - PSA Result Comment: The drugs N-Acetylcysteine and Metamizole may falselydepress this assay.Normal range: <150 mg/dLBorderline High: 150-199 mg/dLHigh: 200-499 mg/dLVery High: >500 mg/dL Performed By: #### L 501.9520, L501.9985, L500.4100, L100.0100, L501.9910, L500.4050 ####[facility] [id number] [place], [address] MCV (mean corpuscular volume ) determinationOrdered By: Monroe Rothman on 12-06-2024 MCV (RBC) [Entitic vol] 87.2 fL 80-[address] [facility] Mean corpuscular hemoglobin (MCH) determinationOr[facility]: [facility] MCH (RBC) [Entitic mass] 30.0 pg 27.0-32.0 [facility] Mean corpuscular hemoglobin concentration (MCHC) determinationOrdered By: [facility] on 12-06-2024 MCHC (RBC) [Mass/Vol] 34.4 g/dL 32-36 [facility] Mean platelet volume determi nationOrdered By: [facility] on 12-06-2024 Platelet mean volume (Bld) [Entitic vol] 10.0 fL 6.2-12.0 [facility] Monocyte percentageOrdered B y: [facility] on 12-06-2024 Monocytes/100 WBC (Bld) 8.1 % 0-[address] [facility] Neutrophil percentageOrdered By: [facility] on 12-06-2024 Neutrophils/100 WBC (Bld) 60.3 % 47-70 [facility] Nucleated red blood cell per centageOrdered By: [facility] on 12-06-2024 Nucleated RBC/100 WBC (Bld) [Ratio] 0 % 0-5 [facility] PSA,Total - Annual Screenon 12-06-2024 PSA,TOT SCREEN 0.60 ng/mL Normal 0.02-4.00 [facility] Comment on above: Order Comment: Order Date: 12/06/24Order Info: [id number] - CMPOrder Info: [id number] - LIPIDOrder Info: [id number] - TSHOrder Info: [...] L 501.9520, L501.9985, L500.4100, L100.0100, L501.9910, L500.4050 ####[facility] [id number] [place], [address] Platelet countOrdered By: Daniel Rothman on 12-06-2024 Platelets (Bld) [#/Vol] 221 10*3/uL 150-450 [facility] Potassium measurement (mass/ volume)Ordered By: Monroe Rothman on 12-06-2024 Potassium (Unsp spec) [Mass/Vol] 3.7 mmol/L 3.3-5.1 [facility] RBC Auto (Bld) [#/Vol]Ordere d By: Monroe Rothman on 12-06-2024 RBC (Bld) [#/Vol] 4.07 10*6/uL Low 4.6-6.2 [facility] Screening total cholesterol/ high density lipoprotein (HDL) cholesterol ratioOrdered By: Monroe Rothman on 12-06-2024 Cholesterol.total/Shannan sterol in HDL [Mass ratio] 7.26 {ratio} [facility] Serum creatinine measurement (mass/volume)Ordered By: Monroe Rothman on 12-06-2024 Creatinine [Mass/Vol] 1.76 mg/dL High 0.70-1.20 [facility] Serum globulin measurementOr dered By: Monroe Rothman on 12-06-2024 Globulin (S) [Mass/Vol] 2.6 g/dL 2.2-4.[address] [facility] Serum glucose measurement (m ass/volume)Ordered By: Monroe Rothman on 12-06-2024 Glucose [Mass/Vol] 94 mg/dL 70-99 [facility] Serum or plasma alanine stephens otransferase (ALT) measurementOrdered By: Monroe Rothman on 12-06-2024 ALT [Catalytic activity/Vol] 14 U/L <47 [facility] Serum or plasma albumin milagros urement (mass/volume)Ordered By: Monroe Rothman on 12-06-2024 Albumin [Mass/Vol] 4.1 g/dL 3.5-5.0 [facility] Serum or plasma albumin/glob ulin mass ratioOrdered By: Monroe Rothman on 12-06-2024 Albumin/Globulin [Mass ratio] 1.6 {ratio} 0.9-2.4 [facility] Serum or plasma alkaline melissa sphatase measurementOrdered By: Monroe Rothman on 12-06-2024 ALP [Catalytic activity/Vol] 95 U/L 40-129 [facility] Serum or plasma calcium milagros urement (mass/volume)Ordered By: Monroe Rothman on 12-06-2024 Calcium [Mass/Vol] 8.7 mg/dL 7.6-11.0 [facility] Serum or plasma cholesterol in HDL measurement (mass/volume)Ordered By: Monroe Rothman on 12-06-2024 Cholesterol in HDL [Mass/Vol] 24 mg/dL Low >40 [facility] Comment on above: National Cholesterol Education Program (NCEP) guidelines:<40 mg/dL: Low HDL-cholesterol (major risk factor for CHD)>= 60 mg/dL: High HDL-cholesterol (negative risk factor for CHD)HDL-cholesterol is affected by a number of factors, e.g. smoking, exercise, hormones, sex and age. Serum or plasma cholesterol measurement (mass/volume)Ordered By: Monroe Rothman on 12-06-2024 Cholesterol [Mass/Vol] 172 mg/dL <201 [facility] Comment on above: Cholesterol level, D esirable <200 mg/dLBorderline high cholesterol 200-239 mg/dLHigh cholesterol >=240 mg/dLRecommendations of the NCEP Adult Treatment Panel for the following risk-cutoff thresholds for the [place] population. Serum or plasma urea nitroge n measurement (mass/volume)Ordered By: Monroe Rothman on 12-06-2024 Urea nitrogen [Mass/Vol] 26 mg/dL High 4-19 [facility] Sodium levelOrdered By: Kristen Rothman on 12-06-2024 Sodium [Moles/Vol] 141 mmol/L 133-145 [facility] TSH DL <= 0.005 mIU/L QnOrde red By: Monroe Rothman on 12-06-2024 TSH Qn 2.680 uIU/mL 0.300-4.200 [facility] Thyroid Stim Hormone (TSH)on 12-06-2024 TSH 2.680 uIU/mL Normal 0.300-4.200 [facility] Comment on above: Order Comment: Order Date: 12/06/24Order Info: [id number] CMPOrder Info: [id number] - LIPIDOrder Info: [id number] - TSHOrder Info: [id number] - PSA Performed By: #### L 501.9520, L501.9985, L500.4100, L100.0100, L501.9910, L500.4050 ####[facility] [id number] [place], [place], [address] Total proteinOrdered By: Sherrill Rothman on 12-06-2024 Protein [Mass/Vol] 6.6 g/dL 5.9-8.4 [facility] Triglycerides measurementOrd ered By: Monroe Rothman on 12-06-2024 Triglyceride [Mass/Vol] 220 mg/dL High <[address] [facility] Comment on above: The drugs N-Acetylcy steine and Metamizole may falsely depress this assay. Normal range: <150 mg/dLBorderline High: 150-199 mg/dLHigh: 200-499 mg/dLVery High: >500 mg/dL Vitamin D,25 Hydroxyon 12-06 Vitamin D 25-OH 12.5 ng/mL Low 30-100 [facility] Comment on above: Order Comment: Order Date: 12/06/24Order Info: [id number] - CMPOrder Info: [id number] - LIPIDOrder Info: [id number] - TSHOrder Info: [id number] - PSA Result Comment: Ilana min D StatusDeficiency: <20 ng/mL (50nmol/L)Insufficiency: 20-30 ng/mL (50-75 nmol/L)Sufficiency: 30-100 ng/mL (75-250 nmol/L)Toxicity: >100 ng/mL (>250 nmol/L) Performed By: #### L 506.1001 ####[facility] [id number] [place], [address] White blood cell (WBC) count Ordered By: Monroe Rothman on 12-06-2024 WBC (Bld) [#/Vol] 5.8 10*3/uL 4.4-11.0 [facility] Basophil percentageOrdered B y: Rosa Steinberg on 12-03-2022 Bilirubin [Mass/Vol] 0.40 mg/dL 0.20-1.00 [facility] Comment on above: For patients on eltr ombopag therapy, use of Dimension [place] TBIL is not recommended. Chloride [Moles/Vol] 105 mmol/L 98-107 [facility] Cholesterol [Mass/Vol] 200 mg/dL <200 [facility] Comment on above: <200 mg/dL Desirable 200-240 mg/dL Borderline >240 mg/dL High Risk Glucose [Mass/Vol] 109 mg/dL 74-106 [facility] Comment on above: Fasting Glucose resu lt from 100 to 125 mg/dL suggests IMPAIRED HOMEOSTASIS per A.D.A. criteria. Potassium [Moles/Vol] 4.5 mmol/L 3.5-5.1 [facility] Protein [Mass/Vol] 7.5 g/dL 6.4-8.2 [facility] Sodium [Moles/Vol] 137 mmol/L 136-145 [facility] Triglyceride [Mass/Vol] 255 mg/dL <199 [facility] Comment on above: The drugs N-Acetylcy steine and Metamizole may falsely depress this assay.Serum Triglycerides Reference Interval Normal <150 mg/dL Borderline high 150 - 199 mg/dL High 200 - 499 mg/dL Very High > or = 500 mg/dL Laboratory - Chemistry and C hemistry - challengeOrdered By: Rosa Steinberg on 12-03-2022 ALP [Catalytic activity/Vol] 96 U/L 45-117 [facility] ALT [Catalytic activity/Vol] 30 U/L 16-61 [facility] CO2 [Moles/Vol] 26.0 mmol/L 21.0-32.0 [facility] Globulin (S) [Mass/Vol] 3.7 g/dL 2.2-4.2 [facility] Urea nitrogen/Creatinine [Mass ratio] 18.0 mg/mg 10-20 [facility] No Panel InformationOrdered By: Rosa Steinberg on 12-03-2022 Estimated GFR (MDRD) Amer 106 mL/min >60 [facility] Comment on above: GFR Calc Estimated GFR (MDRD) Non-Af Amer 88 mL/min >60 [facility] Comment on above: Non- GFR Calc Prostate Specific Antigen Screen 0.87 ng/mL 0.00-4.00 [facility] Comment on above: This test was perfor med using the TPSA assay method for [employer] chemistry system. Values obtained with differentassay methods cannot be used interchangably.When changing PSA assays in the course of monitoring apatient, additional sequential testing should be carriedout to confirm baseline values. Thyroid Stimulating Hormone (TSH) 1.99 uIU/mL 0.358-3.74 [facility] Serum or plasma albumin milagros urement (mass/volume)Ordered By: Rosa Steinberg on 12-03-2022 Albumin [Mass/Vol] 3.8 g/dL 3.2-5.0 [facility] Serum or plasma albumin/glob ulin mass ratioOrdered By: Rosa Steinberg on 12-03-2022 Albumin/Globulin [Mass ratio] 1.0 {ratio} 0.9-2.4 [facility] Serum or plasma calcium milagros urement (mass/volume)Ordered By: Rosa Steinberg on 12-03-2022 Calcium [Mass/Vol] 9.0 mg/dL 8.5-10.1 [facility] Serum or plasma cholesterol in HDL measurement (mass/volume)Ordered By: Rosa Steinberg on 12-03-2022 Cholesterol in HDL [Mass/Vol] 27 mg/dL >40 [facility] Comment on above: The drugs N-Acetylcy steine and Metamizole may falsely depress this assay. Reference Range HDL <40 mg/dL Low HDL Cholesterol HDL >or= 60 mg/dL High HDL Cholesterol Serum or plasma cholesterol in VLDL measurement (mass/volume)Ordered By: Rosa Steinberg on 12-03-2022 Cholesterol in VLDL [Mass/Vol] 51 mg/dL 5-40 [facility] Serum or plasma creatinine m easurement (mass/volume)Ordered By: Rosa Steinberg on 12-03-2022 Creatinine [Mass/Vol] 0.95 mg/dL 0.70-1.30 [facility] Comment on above: The validity of the calculated GFR & GFRAA in patients over 70 years has not been determined. Clinical correlation is essential. Serum or plasma low density lipoprotein (LDL) cholesterol measurement (mass/volume)Ordered By: Rosa Steinberg on 12-03-2022 Cholesterol in LDL [Mass/Vol] 122 mg/dL 0-130 [facility] Serum or plasma urea nitroge n measurement (mass/volume)Ordered By: Rosa Steinberg on 12-03-2022 Urea nitrogen [Mass/Vol] 17 mg/dL 7-18 [facility] Thin prep Papanicolaou smear with manual screeningOrdered By: Rosa Steinberg on 12-03-2022 Thin prep Papanicolaou smear with manual screening 13 U/L 15-37 [facility] Thin prep Papanicolaou smear with manual screening 6 5-15 [facility] Thin prep Papanicolaou smear with manual screening 13.8 mg/L NO RANGE EST. [facility] Whole blood hemoglobin A1c/t otal hemoglobin ratio (mass fraction)Ordered By: Rosa Steinberg on 12-03-2022 HbA1c (Bld) [Mass fraction] 5.6 % 3.8-5.6 [facility] Comment on above: Normal < 5.7 % Predi abetic 5.7 - 6.4 % Diabetic >or= 6.5 % Please note range changes. Vital Signs Date Time Vital Sign Value Performing Clinician Yasiri mery 11-17-2022 07:59-0400 Body height 182.[address] Adal SMITH Work Phone: [facility] 11-17-2022 07:59-0400 Body mass index (BMI) [Ratio] 34.8 kg/m2 Dr. Adal SMITH Work Phone: [facility] 11-17-2022 07:59-0400 Body temperature 96 [degF] Dr. Adal SMITH Work Phone: [facility] 04-24-2023 07:59-0400 Body weight 116.[address] Adal SMITH Work Phone: [facility] 11-17-2022 07:59-0400 Diastolic blood pressure 81 mm[Hg] Dr. Adal SMITH Work Phone: [facility] 11-17-2022 07:59-0400 Heart rate 60 /min Dr. Adal SMITH Work Phone: [facility] 11-17-2022 07:59-0400 Respiratory rate 17 /min Dr. Adal SMITH Work Phone: [facility] 11-17-2022 07:59-0400 SaO2% (BldA) [Mass fraction] 95 % Dr. Adal SMITH Work Phone: [facility] 11-17-2022 07:59-0400 Systolic blood pressure 147 mm[Hg] Dr. Adal SMITH Work Phone: [facility] Encounters Encounter Date Encounter Type Care Provider Facility [facility]: [facility] Start: 05-14-2025 [facility] Start: 05-13-2025 End: 05-13-2025 ambulatory [facility] Facility:[facility] Start: 05-12-2025 End: 05-12-2025 ambulatory [facility] Facility:[facility] Start: 05-11-2025 End: 05-11-2025 ambulatory [facility] Facility:[facility] Start: 05-04-2025 ambulatory Beni [place] Facility:[facility] Start: 05-04-2025 End: 05-10-2025 Evaluation and management of inpatient Jani Tello Facility:[facility] Start: 01-23-2025 End: 01-23-2025 ambulatory Monroe Rothman MD Work Phone: -[facility] [employer] Start: 01-23-2025 End: 01-23-[address] Monroe Rothman MD -[facility] [employer] Work Phone: Start: 01-23-2025 End: 01-23-2025 ambulatory Kristenkaylee Lorna Facility:[facility] Start: 12-09-2024 Encounter for genera l adult medical examination without abnormal findings Monroe Butterfieldke [facility] Start: 12-06-2024 End: 12-06-2024 ambulatory Monroe Rothman MD Work Phone: [facility] Work Phone: Start: 12-06-2024 End: 12-06-[address] Monroe Rothman MD -Laboratory [employer] Work Phone: Start: 12-06-2024 End: 12-06-2024 ambulatory Monroe Rothman Facility:[facility] Start: 12-03-2022 End: 12-03-[address] Adal SMITH Work Phone: [facility] Work Phone: Start: 12-03-2022 End: 12-03-[address] Adal SMITH Work Phone: [facility] Start: 11-19-2022 End: 11-19-[address] Adal SMITH Work Phone: [facility] Start: 11-17-2022 End: 11-17-[address] Adal SMITH Work Phone: [facility] Procedures Date Procedure Procedure [...] nmol/L) Payers Date Payer Category Payer Self-pay [id number] 2024 Unknown [id number] Unknown [id number] Unknown [id number] 2.16.8 [id number] Unknown [id number] 2.16.8 [id number] Unknown [id number] 2.16.8 40.1.296452.3.579.2.462 Unknown [id number] 2.16.8 40.1.559221.3.579.2.462 Unknown [id number] 2.16.8 40.1.681150.3.579.2.462 Unknown [id number] 2.16.8 40.1.780401.3.579.2.462 Unknown [id number] 2.16.8 40.1.786650.3.579.2.462 Unknown [id number] 2.16.8 40.1.440778.3.579.2.462 Unknown [id number] 2.16.8 40.1.889665.3.579.2.462 Unknown [id number] 2.16.8 40.1.045676.3.579.2.462 Unknown [id number] 2.16.8 40.1.809581.3.579.2.462 Unknown [id number] 2.16.8 40.1.639090.3.579.2.462 Unknown [id number] 2.16.8 40.1.018020.3.579.2.462 Unknown [id number] 2.16.8 40.1.029037.3.579.2.462 Unknown [id number] 2.16.8 40.1.984774.3.579.2.462 Social History Date Type Detail Facility Start: 11-19-2022 Tobacco smoking stat [facility] Unknown if ever smoked [facility] Start: 1965 Sex Assigned At Male [facility] Start: 11-19-2022 Tobacco smoking stat [facility] Smokes tobacco daily (finding) [facility] Microscopic observation Gram stain Nom (Unsp spec) 05-05-2025 Note Date & Type Note Facility 05-05-2025 Note Acceptable Specimen? Acceptable Specimen(Evaluation not needed) Gram Stain 2+ Gram positive cocci 1+ Gram positive rods 2+ White Blood Cells No Epithelial cells [facility] Comment on above: Performed By: #### M 100.2400, M100.2000 ####[facility] [id number] [facility] [place], [place], [address] Radiology Diagnostic study note 01-23-2025 Note Date & Type Note Facility 01-23-2025 Radiology Diagnostic study note [facility] Imaging Services [address] [place], [place] [address] Elbow min 3 Views MR#: [id number] Acct: [id number] Name: NOAH DOMINGUEZ Rep #: [id number] : 1965 M 59 From: Shawn Lipscomb MD PCP: Dr. Monroe Rothman MD Status: REG CL I Study:Elbow min 3 Views Date of Exam: Exam# [id number] Ordering Dr: Sherrill Rothman MD PROCEDURE: ELBOW MIN 3 VIEWS 01/23/2025 REASON FOR EXAM: SWELLING WITH CELLULITIS TECHNIQUE: ELBOW MIN 4 VIEWS COMPARISON: None FINDINGS: Bones: No fracture or suspicious osseous lesion Joints: Normal alignment. Soft tissues: Diffuse nonspecific soft tissue swelling Other: RAD/Elbow min 3 Views IMPRESSION: No fracture or suspicious osseous lesion Joint spaces well-preserved Nonspecific soft tissue swelling Reading Location: [id number] CC: Dr. Monroe Rothman MD ~ [employer] Adminstrator: Signed [facility] Evaluation note Note Date & Type Note Facility Evaluation note Diagnosis Onset Date Epidermal cyst of neck acute Neck pain acute Epidermal cyst of neck acute Neck pain acute [facility] Work Phone: Evaluation note Note Date & Type Note Facility Evaluation note No assessment information availa ble [facility] Work Phone: Reason for referral (narrative) Note Date & Type Note Facility Reason for referral (narrative) No reason for referral information available [facility] Work Phone: Chief Complaint and Reason for [...] section and content) DATE CREATED AUTHOR 05/13/2025 [facility] FOR RECORDS PERTAINING TO PATIENTS [...] BE BASED ON THE PRIMARY CLINICAL RECORDS. [facility] [employer] provides no warranty or guarantee of the accuracy or completeness of information in this document.
[2025-05-14 11:50] VITALS: BP 118/53; PULSE 58; RESP 16; TEMP 36.9; O2SAT 98; BMI 33.5
== END 2025-05-14 12:05 | disposition home or self-care (01) ==
LOC: MEDOUTP 11:45 → MS3 11:46
PROVIDERS: PCP Family Medicine; Referring Provider Internal Medicine Infectious Disease; Visit Provider Internal Medicine Infectious Disease
DX: R78.81 Bacteremia (principal); B96.20 Unspecified Escherichia coli [E. coli] as the cause of diseases classified elsewhere; Z16.12 Extended spectrum beta lactamase (ESBL) resistance
CPT/HCPCS: 96372

== ENCOUNTER 2025-05-15 13:43 | Outpatient (CLI) | payer OTHER, SELFPAY ==
[2025-05-15 14:02] VITALS: BP 133/56; PULSE 51; RESP 16; TEMP 36.1; O2SAT 99; BMI 33.5
[2025-05-15] MEDS: [UNRECOGNIZED DRUG - OTHER] 0.5 GM IM (14:38)
== END 2025-05-15 23:59 | disposition home or self-care (01) ==
LOC: MEDOUTP 13:43
PROVIDERS: PCP Family Medicine; Referring Provider Internal Medicine Infectious Disease; Visit Provider Internal Medicine Infectious Disease
DX: R78.81 Bacteremia (principal); B96.20 Unspecified Escherichia coli [E. coli] as the cause of diseases classified elsewhere; Z16.12 Extended spectrum beta lactamase (ESBL) resistance
CPT/HCPCS: 96372

== ENCOUNTER → 2025-05-23 | Outpatient (CLI) | payer OTHER, SELFPAY ==
[2025-05-23 17:55] LABS: Hematocrit 24.7 % (40-54); Hemoglobin 8.4 g/dL (13.0-16.5); Immature Granulocytes Count 0.040 X10^3/uL (0.0-0.0); Mean Corp Hgb Conc 34.0 g/dL (32-36); Mean Corpuscular Volume 82.9 fL (80-94); Mean Platelet Vol. 9.5 fl (6.2-12.0); NRBC Flagged by Analyzer 0 % (0-5); Platelet Count 330 K/mm3 (150-450); RBC Distribution Width CV 15.4 % (11.6-14.6); RBC Distribution Width SD 45.3 fl (35.1-43.9); Red Blood Count 2.98 M/mm3 (4.6-6.2); White Blood Count 5.7 K/mm3 (4.4-11.0)
[2025-05-23 18:35] LABS: AST(SGOT) 12 U/L (<=37); Alanine Aminotransfer ALT/SGPT 16 U/L (<=46); Albumin, Serum 3.5 g/dL (3.5-5.0); Alkaline Phosphatase 115 U/L (40-129); Anion Gap 9 (5-15); BUN 20 mg/dL (4-19); BUN/Creat Ratio 14.3 RATIO (10-20); Calcium,Total 8.9 mg/dL (7.6-11.0); Carbon Dioxide 20.7 mmol/L (21.0-32.0); Chloride 109 mmol/L (98-108); Globulin 3.5 g/dL (2.2-4.2); Glucose 98 mg/dL (70-99); Potassium 3.9 mmol/L (3.3-5.1); Vitamin D,25 Hydroxy 15.5 ng/mL (30-100)
== END | disposition home or self-care (01) ==
LOC: MFPLAB 14:38
PROVIDERS: PCP Family Medicine; Visit Provider Family Medicine
DX: D64.9 Anemia, unspecified (principal); E11.9 Type 2 diabetes mellitus without complications; N17.9 Acute kidney failure, unspecified; E55.9 Vitamin D deficiency, unspecified
CPT/HCPCS: 36415; 80053; 82306; 83036; 85025

== ENCOUNTER → 2025-06-05 | Outpatient (CLI) | payer OTHER, SELFPAY ==
[2025-06-05 18:05] LABS: Hematocrit 28.6 % (40-54); Hemoglobin 9.4 g/dL (13.0-16.5); Mean Corp Hgb Conc 32.9 g/dL (32-36); Mean Corpuscular Volume 85.9 fL (80-94); Mean Platelet Vol. 9.4 fl (6.2-12.0); Platelet Count 208 K/mm3 (150-450); RBC Distribution Width CV 16.3 % (11.6-14.6); RBC Distribution Width SD 50.9 fl (35.1-43.9); Red Blood Count 3.33 M/mm3 (4.6-6.2); White Blood Count 6.6 K/mm3 (4.4-11.0)
[2025-06-05 18:26] LABS: Creatinine, Urine (random) 127.00 mg/dL (39.00-259.00); Microalbumin,Random Urine 74.5 mg/L (<20 mg/L)
== END | disposition home or self-care (01) ==
LOC: MTLAB 16:53
PROVIDERS: PCP Family Medicine; Referring Provider Family Medicine; Visit Provider Family Medicine
DX: D64.9 Anemia, unspecified (principal); E11.9 Type 2 diabetes mellitus without complications
CPT/HCPCS: 36415; 82043; 82570; 82668; 85027